=== PATIENT | female | born 1985 | race Caucasian/White ===

== ENCOUNTER 2020-11-23 21:28 | Emergency (ER) | payer BC, SELFPAY ==
[2020-11-23 21:28] VITALS: BP 148/89; PULSE 107; RESP 20; TEMP 36.4; O2SAT 98; BMI 57.0
--- NOTE | 2020-11-23 21:54 | ED.RN ---
RN CALLED FOR EKG, PULLED OLD EKGS FOR
--- NOTE | 2020-11-23 21:58 | CT_ITS ---
STUDY: CTA CHEST REASON FOR EXAM: Female, 35 years old. Chest pain. Shortness of breath. Tachycardia. RADIATION DOSAGE (If Supplied By Facility): CTDIvol = ( 12.67 ) mGy, DLP = ( 517.19 ) mGycm TECHNIQUE: The examination was performed with the intravenous administration of IV 100mL Isovue-370. Post-processing of the angiographic images was performed, with multiplanar reformation and 3D reconstruction. Individualized dose optimization techniques were used for this CT. COMPARISON: None. FINDINGS: Normal enhancement of the main pulmonary artery and right and left pulmonary arteries. Normal enhancement of the bilateral peripheral pulmonary arteries. There is no demonstrated pulmonary embolism. Normal thoracic aorta and visualized great vessels. There is no demonstrated aortic dissection. Normal heart and pericardium. Normal mediastinum. Normal hilar regions. Normal visualized trachea and bronchi. The lungs are well expanded. Normal pulmonary parenchyma. Normal pleura. Normal chest wall structures. Normal osseous structures. The liver is enlarged and fatty infiltrated. The upper abdomen is otherwise unremarkable. CT/CTA Chest W/WO Contrast IMPRESSION: 1. Normal CTA chest examination, without a demonstrated pulmonary embolism or arterial dissection. 2. Hepatomegaly with fatty infiltration. Electronically Signed: Esau Cunningham DO at 23:27 EDT Tel [phone], Service support ,
--- NOTE | 2020-11-23 21:59 | EKG12_ITS ---
Test Reason : CP Blood Pressure : / mmHG Vent. Rate : 105 BPM Atrial Rate : 105 BPM P-R Int : 160 ms QRS Dur : 088 ms QT Int : 324 ms P-R-T Axes : 046 064 024 degrees QTc Int : 428 ms Sinus tachycardia Otherwise normal ECG Confirmed by MAGO SINCLAIR, JENNIFER ([id number]), supervising editor news reel LIA BOOKER ([id number]) on 11/28/2020 1:37:14 PM Referred By: TL/ODILIA Confirmed By:JENNIFER MERCEDES MD
--- NOTE | 2020-11-23 22:01 | ED.VIS.CHEST ---
HPI History of Present Illness Chief Complaint: Chest Pain Informant: patient Onset/Context/Timing Onset: Today Activity at onset: gradual Timing: Continuous Quality: Positive for Tightness Location: Substernal Worsened By: Nothing Relieved By: Rest Associated Symptoms: Positive for Dyspnea, Lightheadedness and Palpitations; Negative for Nausea, Vomiting, Diaphoresis, Cough, Fever and Acid Reflux Narrative Narrative: Patient presents with chest pain that began today. Patient states that it has been constant all day today. Patient states it feels like a tightness over her upper sternal area. Patient denies any radiation of the pain. Patient states the pain is better with sitting and resting. Patient states nothing makes the pain worse. Patient does admit to some shortness of breath and lightheadedness. Patient states she feels weak and fatigued. Patient also admits to some palpitations. CVD Risk Factors: Positive for Diabetes; Negative for Hypertension, Hypercholesterolemia, Family History 1' </=55 and Smoking PE Risk Factors: Negative for Recent Travel/Surgery, Recent Immobilization, Prior DVT or PE, Cancer and OCP + Smoking + >/=35 PFSH PFSH Medical History (Updated 11/24/20 @ 00:[address] Elder Amos DO) Depression PCOS (polycystic ovarian syndrome) Pre-diabetes Home Medications buspirone 15 mg PO DAILY 11/23/20 [History Last Taken Unknown] cetirizine 10 mg PO DAILY 11/23/20 [History Last Taken Unknown] cholecalciferol (vitamin D3) [Vitamin D3] 125 mcg PO DAILY 11/23/20 [History Last Taken Unknown] escitalopram oxalate 20 mg PO DAILY 11/23/20 [History Last Taken Unknown] ibuprofen [IBU] 800 mg PO BID PRN 11/23/20 [History Last Taken Unknown] metformin 500 mg PO DAILY 11/23/20 [History Last Taken Unknown] nebivolol [Bystolic] 5 mg PO DAILY 11/23/20 [History Last Taken Unknown] Allergy/AdvReac Type Severity Reaction Status Date / Time No Known Allergies Allergy Verified 11/23/20 21:32 no surgical history Social History Smoking Status: Never smoker ROS ROS ED Constitutional Constitutional ED: Denies chills or fever(s) Eyes Eyes: Denies blurry vision or change in vision ENT ENT ED: Denies rhinorrhea or sore throat Cardiovascular Cardiovascular: Reports chest pain and palpitations Respiratory/Chest Respiratory/Chest: Reports dyspnea; Denies cough Gastrointestinal Gastrointestinal: Reports abdominal pain; Denies nausea or vomiting Genitourinary Genitourinary ED: Reports urinary frequency; Denies dysuria or hematuria Musculoskeletal Musculoskeletal: Denies back pain or neck pain Integumentary Denies abscess or rash Neurologic Neurologic: Reports headache(s) and weakness Allergic/Immunologic Allergic/Immunologic ED: Denies mouth swelling or urticaria EXAM Physical Exam Const Vital Signs: 11/23/20 21:28 11/23/20 22:02 11/23/20 22:05 Temperature 97.6 F L Temperature Source Temporal Pulse Rate 107 H Respiratory Rate 20 H Respiratory Effort Short of Breath Respiratory Pattern Normal Blood Pressure 148/89 H Blood Pressure Mean 108 Pulse Ox 98 94 Oxygen Delivery Method Room Air Room Air 11/23/20 22:51 Temperature Temperature Source Pulse Rate 98 Respiratory Rate 17 Respiratory Effort Respiratory Pattern Blood Pressure 155/97 H Blood Pressure Mean 116 Pulse Ox 99 Oxygen Delivery Method Room Air Positive well nourished, well developed and obese General Appearance ED: well developed Nutritional Appearance: obese HEENT normocephalic and atraumatic Eyes PERRL and EOMs intact bilaterally Neck supple and no JVD Chest Wall palpation of chest normal Resp normal respiratory effort and clear to auscultation bilaterally Effort and Inspection: Negative for respiratory distress Cardio regular rate, regular rhythm and no murmurs GI normal to inspection, nondistended, normoactive bowel sounds, soft to palpation, non-tender and non-distended Extremity normal to inspection General Extremety ED: Negative for edema or tenderness General Extremity: Negative for edema Neuro oriented x3, CN's II-XII intact bilaterally and no sensory deficits noted Sensorium / Orientation: awake and alert Motor Exam: strength 5/5 throughout Psych mental status grossly normal Heart Score History: Slightly/Non-Suspicious ECG: Normal Age: </= 45 years Risk Factors: 1 or 2 Risk Factors Score: 1 MDM MDM MDM Narrative Medical decision making narrative: EKG was obtained. On my interpretation, it showed a sinus tachycardia with a rate of 105. [place] interval, QRS interval, and QTc intervals were all normal. [place] was normal. There are no acute ST or T wave changes. CBC shows a slight leukocytosis of 11.1. Basic metabolic profile was normal. PT with INR and PTT were normal. High-sensitivity troponin was normal. CTA of the chest was obtained. There is no evidence of pulmonary embolism or arterial dissection. This was interpreted by the radiologist and reviewed by myself. Patient was given aspirin here. Patient was feeling somewhat better on reevaluation. Patient was advised of her findings. Patient has a HEART score of 1. Patient was advised that this is low risk for acute cardiac event. Patient was instructed to follow-up with her primary care physician in 5 to 7 days. Patient understood and was agreeable with the plan. All questions were answered. Lab Data Attestation: I reviewed the patient's lab results. Labs: Laboratory Results - last 24 hr 11/23/20 11/23/20 11/23/20 22:10 22:10 22:10 WBC 11.1 H RBC 4.46 Hgb 12.6 Hct 38.6 MCV 86.5 MCH 28.3 MCHC 32.6 RDW Std Deviation 44.1 H RDW Coeff of Steffi 13.9 Plt Count 384 MPV 8.4 Immature Gran % (Auto) 0.900 Neut % (Auto) 71.8 H Lymph % (Auto) 20.3 Pettis % (Auto) 5.0 Eos % (Auto) 1.1 Baso % (Auto) 0.9 Absolute Neuts (auto) 7.9 H Absolute Lymphs (auto) 2.25 Nucleated RBC % 0 PT 14.1 INR 1.2 APTT 36.6 H Sodium 138 Potassium 3.6 Chloride 102 Carbon Dioxide 28.0 Anion Gap 8 BUN 16 Creatinine 0.94 Estim Creat Clear Calc 66.70 Est GFR (MDRD) Af Amer 88 Est GFR (MDRD) Non-Af 72 BUN/Creatinine Ratio 17.0 Glucose 191 H Calcium 9.0 Troponin I High Sens < 3.0 L Radiography Diagnostic Testing: Radiology Impression Chest CTA 11/23/20 21:58 IMPRESSION: 1. Normal CTA chest examination, without a demonstrated pulmonary embolism or arterial dissection. 2. Hepatomegaly with fatty infiltration. Electronically Signed: Esau Cunningham DO at 23:27 EDT Tel [phone], Service support , EKG Initial EKG: Attestation: I personally reviewed and interpreted this EKG as follows: Interpretation: No Acute Injury Pattern and Sinus Tachycardia (105) Discharge Plan Triage Chief Complaint: Chest Pain ED Provider: Elder Amos Dx/Rx/DC Orders Clinical Impression: Chest pain of uncertain etiology, Generalized weakness Instructions: ED Chest Pain, Uncertain Cause, ED Weakness (Uncertain Cause) Prescriptions: No Action metformin 500 mg tablet 500 mg PO DAILY RF: 0 ibuprofen [IBU] 800 mg Tablet 800 mg PO BID PRN (Reason: Pain) RF: 0 buspirone 15 mg tablet 15 mg PO DAILY RF: 0 escitalopram oxalate 20 mg tablet 20 mg PO DAILY RF: 0 Bystolic 5 mg Tablet 5 mg PO DAILY RF: 0 cholecalciferol (vitamin D3) [Vitamin D3] 125 mcg (5,000 unit) Tablet 125 mcg PO DAILY RF: 0 cetirizine 10 mg Capsule 10 mg PO DAILY RF: 0 Primary Care Provider: Odalys Gonzales Referrals: Odalys Gonzales DO [Primary Care Provider] - 5-7 Days Disposition Disposition: Home, Self Care
[2020-11-23 22:02] VITALS: O2SAT 94
[2020-11-23] MEDS: Aspirin 81 MG TAB.CHEW 324 MG PO (22:12)
[2020-11-23 22:14] LABS: Absolute Lymphocyte Count 2.25 X10^3/uL (0.83-4.51); Absolute Neutrophil Count 7.9 X10^3/uL (2.0-7.7); Basophil% 0.9 % (0-1); Eosinophil# 0.12 X10^3/uL; Eosinophils% 1.1 % (0-5); Hematocrit 38.6 % (37-47); Hemoglobin 12.6 g/dL (12.0-15.0); Lymphocyte # 2.25 X10^3/ul (0.83-4.51); Lymphocyte % 20.3 % (19-41); Mean Corp Hgb Conc 32.6 g/dL (32-36); Mean Corpuscular Hgb 28.3 pg (27.0-32.0); Mean Corpuscular Volume 86.5 fL (81-99); Mean Platelet Vol. 8.4 fl (6.2-12.0); Monocyte# 0.55 X10^3/uL; NRBC Flagged by Analyzer 0 % (0-5); Neutrophil # 7.94 X10^3/uL (2.7-7.7); Neutrophil % 71.8 % (47-70); Platelet Count 384 K/mm3 (150-450); RBC Distribution Width CV 13.9 % (11.6-14.6); RBC Distribution Width SD 44.1 fl (35.1-43.9); Red Blood Count 4.46 M/mm3 (4.2-5.4); White Blood Count 11.1 K/mm3 (4.4-11.0)
[2020-11-23 22:24] LABS: International Normalized Ratio 1.2; Prothrombin Time (Protime)PT. 14.1 SECONDS (11.7-14.9)
[2020-11-23 22:25] LABS: Partial Thromboplast Time 36.6 Seconds (24.1-36.2)
[2020-11-23 22:35] LABS: Anion Gap 8 (5-15); BUN 16 mg/dL (7-18); Chloride 102 mmol/L (98-107); Creatinine, Serum 0.94 mg/dL (0.55-1.02); EST Glomerular Filtration Rate 72 mL/min (>60); Est Glom Filt Rate - Afr Amer 88 mL/min (>60); Glucose 191 mg/dL (74-106); Potassium 3.6 mmol/L (3.5-5.1); Sodium Level 138 mmol/L (136-145); Troponin-I HS < 3.0 pg/mL (3.0-53.7)
[2020-11-23 22:51] VITALS: BP 155/97; PULSE 98; RESP 17; O2SAT 99
[2020-11-24 00:11] VITALS: BP 164/93; PULSE 91; RESP 19; O2SAT 99
== END 2020-11-24 00:12 | disposition home or self-care (01) ==
PROVIDERS: Emergency Provider Emergency Medicine; PCP Internal Medicine
DX: R07.89 Other chest pain (principal); R06.00 Dyspnea, unspecified; R42 Dizziness and giddiness; R53.83 Other fatigue; R53.1 Weakness; R00.2 Palpitations; R73.03 Prediabetes; E28.2 Polycystic ovarian syndrome; F32.9 Major depressive disorder, single episode, unspecified; Z79.84 Long term (current) use of oral hypoglycemic drugs; Z79.899 Other long term (current) drug therapy
CPT/HCPCS: 71275; 80048; 84484; 85025; 85610; 85730; 93005; 99285; Q9967; A4216

== ENCOUNTER → 2021-04-26 14:26 | Outpatient (CLI) | payer BC, SELFPAY ==
[2021-04-26 15:50] LABS: Erythrocyte Sedimentation Rate 32 mm/hr (0-30)
[2021-04-26 16:16] LABS: LDH 145 U/L (84-246)
[2021-04-27 12:03] LABS: Hepatitis C Antibody Non-Reactive (Nonreactive)
[2021-04-29 12:08] LABS: Anti-Centromere B Ab <0.2 AI (0.0-0.9); Anti-Chromatin <0.2 AI (0.0-0.9); Anti-Jo <0.2 AI (0.0-0.9); Anti-Scleroderma-70 AB <0.2 AI (0.0-0.9); Anti-ribosomal P Antibodies <0.2 AI (0.0-0.9); RNP Ab <0.2 AI (0.0-0.9); SJOGREN'S Anti-SS-A test < 0.2 AI (0.0-0.9); SJOGREN'S Anti-SS-B test < 0.2 AI (0.0-0.9); Smith Ab <0.2 AI (0.0-0.9); Smith/RNP Ab <0.2 AI (0.0-0.9)
[2021-04-29 13:31] LABS: Anti-Mitochondrial AB <20.0 Units (0.0-20.0); Anti-dsDNA Ab <1 IU/mL (0-9)
[2021-05-03 16:09] LABS: Angiotensin Convert Enzyme 18 U/L (14-82); Ceruloplasmin 29.8 mg/dL (19.0-39.0); Cytoplasmic Ab (C-ANCA) <1:20 titer (Neg:<1:20); Dilute Prothrombin Time (dPT) 48.2 sec (0.0-47.6); Dilute Russell Viper Venom 53.6 sec (0.0-47.0); Endomysial Antibody IgA Negative (Negative); Immunoglobulin A 129 mg/dL (87-352); Immunoglobulin E 3 IU/mL (6-495); Immunoglobulin G 1358 mg/dL (586-1602); Immunoglobulin M 54 mg/dL (26-217); PTT-LA 45.5 sec (0.0-51.9); Protein S, Free 122 % (61-136); Thrombin Time 17.5 sec (0.0-23.0); dPT Confirm Ratio 0.94 Ratio (0.00-1.34)
[2021-05-03 16:10] LABS: Anti-Smooth Muscle ABS 8 Units (0-19); Antithrombin 3 Function 88 % (75-135); Copper, Serum or Plasma 146 ug/dL (80-158); EBV Acute VCA IgM < 36.0 U/mL (0.0-35.9); EBV Nuclear Antigen IgG > 600.0 U/mL (0.0-17.9); Interpretation Comment: (.); Perinuclear Ab (P-ANCA) <1:20 titer (Neg:<1:20); Protein S, Total 109 % (60-150); t-Transglutaminase IgA <2 U/mL (0-3)
== END ==
PROVIDERS: Referring Provider Internal Medicine Gastroenterology; Visit Provider Internal Medicine Gastroenterology
DX: K76.0 Fatty (change of) liver, not elsewhere classified (principal)
CPT/HCPCS: 36415; 81241; 82164; 82390; 82525; 82784; 82785; 83516; 83615; 85300; 85305; 85306; 85652; 86038; 86140; 86225; 86235; 86255; 86256; 86664; 86665; 86803

== ENCOUNTER → 2021-05-20 09:59 | Outpatient (CLI) | payer BC, SELFPAY ==
--- NOTE | 2021-05-20 10:04 | US_ITS ---
STUDY: ABDOMINAL ULTRASOUND - RIGHT UPPER QUADRANT REASON FOR VISIT: Female, 36 years old fatty liver -- ELASTOGRAPHY ALSO DONE TODAY TECHNIQUE: Ultrasound evaluation of the right upper quadrant was performed with real-time and static winslow-scale imaging. TECHNICAL QUALITY: Adequate. COMPARISON: None. FINDINGS: Liver: The liver is enlarged and measures 20.3 cm. There is increased echogenicity consistent with fatty infiltration. Focal fatty sparing is seen adjacent to the gallbladder fossa. Tithe bile ducts are within normal limits. There is hepatic color flow. The direction of portal flow is hepatopetal. There is no demonstrated mass lesion. Gallbladder: Normal distended gallbladder. The gallbladder wall measures 2.6 mm. There is a negative sonographic Collins''s sign. There is no pericholecystic fluid. There is a solitary echogenic gallstone within the gallbladder. This measures 4.4 cm x 2.5 cm x 2.2 cm. Common Bile Duct (C.B.D.): The common bile duct measures 3.1 mm. Pancreas: Normal size of the head, body and tail of the pancreas. There is increased echogenicity of the pancreas. There is no demonstrated pancreatic mass or cyst. Right Kidney: Normal size of the right kidney. The right kidney measures 12.3 cm x 7.1 cm x 4.4 cm. Normal renal cortex. The right cortex measures 1.9 cm. There is no demonstrated renal mass or cyst. There is no right hydronephrosis. IMPRESSION: Hepatomegaly. Fatty infiltration the liver with focal fatty sparing along the gallbladder fossa. Large solitary gallstone. Electronically Signed: Vincent Pickard MD at 8:53 EST , Service support , STUDY: ABDOMINAL ULTRASOUND - ELASTOGRAPHY REASON FOR VISIT: Female, 36 years old. Fatty infiltration of the liver. Hepatomegaly. TECHNIQUE: Liver stiffness measurements were obtained on a [employer] 85 ultrasound machine using a CA 1-7 probe following the SRU guidelines. 3 measurements were obtained using a 2-D-SWE method. The IQR/M was 24% suggesting a quality data set. TECHNICAL QUALITY: Adequate. COMPARISON: Comparison is made with prior sonogram of the right upper quadrant earlier today. FINDINGS: Liver: Hepatomegaly with fatty infiltration of the liver. Median liver stiffness measured 4 kPa. US/Liver IMPRESSION: Liver stiffness measures 4 kPa compatible with F0 Metavir score. Electronically Signed: Vincent Pickard MD at 8:55 EST , Service support ,
== END ==
PROVIDERS: PCP Internal Medicine; Referring Provider Internal Medicine Gastroenterology; Visit Provider Internal Medicine Gastroenterology
DX: K76.0 Fatty (change of) liver, not elsewhere classified (principal); R19.7 Diarrhea, unspecified
CPT/HCPCS: 76705; 76981

== ENCOUNTER 2021-05-23 07:44 | Day surgery (SDC) | payer BC, SELFPAY ==
[2021-05-23] VITALS (7 sets, daily range): BP systolic 113–121; BP diastolic 58–66; PULSE 74–89; RESP 16–20; TEMP 36.4–36.9; O2SAT 93–98; BMI 53.6
[2021-05-23 08:08] LABS: Internal QC Validated? YES +Cl - CLEAR BKGD; Pregnancy, Urine Negative Negative
[2021-05-23] MEDS: Lactated Ringers 1,000 ML 15 ML IV (08:24)
[2021-05-23 08:30] LABS: Bedside Glucose 121 mg/dL (70-110)
--- NOTE | 2021-05-23 08:37 | PCM.HP.BLA ---
History and Physical Date of Admission: 05/23/21 35 F who presents to the office today for evaluation of diarrhea. She also has been having some abdominal pain. 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 Her diarrhea and abdominal pain got significantly better after being on Metformin. Currently for which she is on Ozempic. Back to doing very well from the medicine. However her diarrhea has gotten to the point she is having nocturnal diarrhea. She has difficulty with diarrhea each day with 5-10 episodes a day. She has attempted bland diets. Vegetables, salads, processed foods, eating out all trigger. COVID diagnosis in September. Worried because health issues have worsened to include DMII and worsened HTN. PCP attempted metformin which worsened diarrhea. Ozempic taking now and feels this is delaying her gastric emptying and causing worsening diarrhea. Reporting 20lb weight loss since November 2021. Also reports gas and bloating. Sigmoidoscopy performed 10 years prior, she reports nothing abnormal. Chest CTA 11/23/20 performed during ED visit with findings of enlarged liver and fatty infiltration. ROS Const Constitutional: Positive for fatigue and headache(s) ENT ENT: Positive for nasal congestion, headache(s) and sore throat Gastro GI: Positive for abdominal pain, bloating, diarrhea and heartburn Musc Musculoskeletal: Positive for back pain Neuro Neurology: Positive for headache(s) Psych Psychiatric: Positive for anxiety Endo Endocrine: Positive for fatigue Exam Const General: cooperative and comfortable Nutritional Appearance: average body habitus and well nourished [facility] Head: normal to inspection Ears: hearing grossly normal bilaterally Nose: external nose normal Face and sinus: normal facial exam Mouth: oral mucosae normal Throat: posterior oropharynx normal Eyes General: appearance normal, both eyes and all related structures Neck Neck: normal visual inspection Chest Chest palpation & inspection: normal inspection of the chest and normal palpation of entire chest wall Resp Effort & Inspection: normal respiratory effort Auscultation: Bilateral: Clear to Auscultation Cardio Palpation: normal PMI Rate: regular rate Rhythm: regular rhythm GI Inspection: normal to inspection Auscultation: normal bowel sounds Percussion: normal to percussion Palpation: no hepatosplenomegaly Skin General: no rashes or lesions noted Neuro General: patient alert Extrem General: normal to inspection Psych Affect: normal affect Quality Reporting Tobacco Screening ([facility] 138) Smoking Status: Never smoker Assessment and Plan Assessment and Plan (1) Diarrhea: Status: Acute Orders: Orders: Colonoscopy Today EGD Today Liver Today Plan - Dr. Diaz Friend, DO: She will undergo colonoscopy. At this time we will also perform stool studies with biopsies. She will undergo biochemical testing. (2) Fatty (change of) liver, not elsewhere classified: Status: Acute Orders: Orders: Colonoscopy Today EGD Today CRP Today LDH Today Erythrocyte Sed Rate Today Anti-Mitochondrial AB Today Angiotensin Convert Enzyme Today ANCA Today Anti-Smooth Muscle ABS Today Antithrombin 3 Function Today Celiac Disease Profile Today Ceruloplasmin Today Copper, Serum or Plasma Today Fact V Leiden Mutation Today Immunoglobulin E Today Immunoglobulin G Today Immunoglobulin M Today Lupus Anticoagulant Comp Today Protein S Antigen Today Hepatitis C Antibody Today EBV Acute Prof IgG / IgM Today Miscellaneous Lab Procedure Today Liver Today Elastography Parenchyma/Organ Today Plan - Dr. Diaz Friend, DO: Her hepatomegaly is likely secondary to fatty liver disease. However because her PTT is prolonged. We will assess for hypercoagulable disorder and also look for other signs Plan Details Other Medications: New: bisacodyl 5 mg PO ONCE 4 tabs 0RF polyethylene glycol 3350 (Miralax) take as directed for bowel 17 grams PO DAILY 238 grams 0RF I have re-examined the patient. There are no clinical changes since date of exam.
--- NOTE | 2021-05-23 08:45 | EGD_PTH ---
PATIENT: KENROY ULLOA LOC: [facility] U#:[id number] AGE/SX: 36/F ROOM: RE05/23/[address]: Dr. Joe Arias DO : 1985 BED: DIS: 05/23/2021 SPEC #: [id number] RECD: 05/23/21 11:49 STATUS: OPAL REAden #: [id number] MARTHA: 05/23/21 08:[address]: Joe Arias DEPT: SURGICAL PATHOLOGY RECD BY: Keyanna Avalos ENTERED: 05/23/21 12:51 SP TYPE: EGD BIOPSY NATALIIA DR: Dr. Odalys Gonzales DO Tissues: A - Duodenum, NOS B - Esophagus, NOS C - COLON BIOPSY Procedures: Special Stain Group II Surgery Specimen Level IV Alcian Blue/PAS (control) HEADER OPERATION: Colonoscopy, EGD ([facility] [place]) PRE-OP DIAGNOSIS: Diarrhea, fatty liver TISSUE SUBMITTED: A ? Duodenum biopsy, B ? Distal esophagus biopsy, C ? Random colonic biopsy MICROSCOPIC DIAGNOSIS A. Duodenum, biopsy: Fragments of duodenal mucosa, no pathologic diagnosis. B. Distal esophagus, biopsy: Fragments of gastroesophageal mucosa with mild chronic inflammation. Intestinal metaplasia (goblet cell metaplasia) not identified. See comment. C. Colon, random biopsy: Fragments of colonic mucosa, no pathologic diagnosis. SJ:noam 05/27/2021 COMMENT B. Alcian blue/PAS stain with matched control is used in the evaluation of the specimen. MICROSCOPIC DESCRIPTION Slides are reviewed. GROSS DESCRIPTION A - Received in fixative is one container labeled with the patient's name and designated duodenum biopsy. The specimen consists of two irregular fragments of light davila soft tissue that in aggregate measure 0.4 x 0.2 x 0.1 cm. The specimen is totally submitted in one cassette. B - Received in fixative is one container labeled with the patient's name and designated distal esophagus biopsy. The specimen consists of two irregular fragments of light davila soft tissue that in aggregate measure 0.5 x 0.5 x 0.1 cm. The specimen is totally submitted in one cassette. C - Received in fixative is one container labeled with the patient's name and designated random colonic biopsy. The specimen consists of multiple irregular fragments of light davila soft tissue that in aggregate measure 2 x 0.7 x 0.1 cm. The specimen is totally submitted in one cassette. / SJ:rg 05/23/21 TC:3 CPT: 37277 x3, 95013
--- NOTE | 2021-05-23 09:10 | OP.EGD_ITS ---
Patient Name: Alma Rivera Procedure Date: 05/23/2021 8:47 AM Date of : 1985 Age: 36 Procedure: Upper GI endoscopy Indications: Dyspepsia Providers: Joe Arias DO Medicines: See the Anesthesia note for documentation of the administered medications Patient Profile: This is a 36 year old female. Refer to note in patient chart for documentation of history and physical. Patient has symptoms of chronic nausea. Complications: No immediate complications. Procedure: Pre-Anesthesia Assessment: - Prior to the procedure, a History and Physical was performed, and patient medications and allergies were reviewed. The risks and benefits of the procedure and the sedation options and risks were discussed with the patient. All questions were answered and informed consent was obtained. Patient identification and proposed procedure were verified by the physician in the pre-procedure area. Mental Status Examination: alert and oriented. Airway Examination: normal oropharyngeal airway and neck mobility. Respiratory Examination: clear to auscultation. CV Examination: normal. Prophylactic Antibiotics: The patient does not require prophylactic antibiotics. Prior Anticoagulants: The patient has taken no previous anticoagulant or antiplatelet agents. ASA Grade Assessment: II - A patient with mild systemic disease. After reviewing the risks and benefits, the patient was deemed in satisfactory condition to undergo the procedure. The anesthesia plan was to use moderate sedation / analgesia (conscious sedation). Immediately prior to administration of medications, the patient was re-assessed for adequacy to receive sedatives. The heart rate, respiratory rate, oxygen saturations, blood pressure, adequacy of pulmonary ventilation, and response to care were monitored throughout the procedure. The physical status of the patient was re-assessed after the procedure. After obtaining informed consent, the endoscope was passed under direct vision. Throughout the procedure, the patient's blood pressure, pulse, and oxygen saturations were monitored continuously. The Endoscope was introduced through the mouth, and advanced to the second part of duodenum. The upper GI endoscopy was accomplished without difficulty. The patient tolerated the procedure well. Moderate Sedation: Moderate (conscious) sedation was administered by the endoscopy nurse and supervised by the endoscopist. The patient's oxygen saturation, heart rate, blood pressure and response to care were monitored. Total physician intraservice time was 15 minutes. Scope In: 9:00:54 AM Scope Out: 9:05:33 AM Total Procedure Duration Time 0 hours 4 minutes 39 seconds Findings: LA Grade A (one or more mucosal breaks less than 5 mm, not extending between tops of 2 mucosal folds) esophagitis with no bleeding was found 34 to 35 cm from the incisors. Biopsies were taken with a cold forceps for histology. Verification of patient identification for the specimen was done. Estimated blood loss was minimal. A large amount of food (residue) was found in the entire examined stomach. Scattered moderate inflammation characterized by congestion (edema) was found in the duodenal bulb, in the first portion of the duodenum and in the second portion of the duodenum. Biopsies were taken with a cold forceps for histology. Verification of patient identification for the specimen was done. Estimated blood loss was minimal. Biopsies were taken with a cold forceps for histology. Verification of patient identification for the specimen was done. Impression: - LA Grade A reflux esophagitis. Biopsied. - A large amount of food (residue) in the stomach. Recommendation: - Written discharge instructions were provided to the patient. - The signs and symptoms of potential delayed complications were discussed with the patient. - Patient has a contact number available for emergencies. - Return to normal activities tomorrow. - Resume previous diet. - Continue present medications. - Await pathology results. - Repeat upper endoscopy in 1 year for surveillance. - Return to GI clinic in 2 weeks. Procedure Code(s): --- Professional --- 79103, 59, Esophagogastroduodenoscopy, flexible, transoral; with biopsy, single or multiple 99192, 59, Moderate sedation services provided by the same physician or other qualified health home health care provider performing the diagnostic or therapeutic service that the sedation supports, requiring the presence of an independent trained observer to assist in the monitoring of the patient's level of consciousness and physiological status; initial 15 minutes of intraservice time, patient age 5 years or older CPT copyright 2017 [employer]. All rights reserved. The codes documented in this report are preliminary and upon local hazmat driver review may be revised to meet current compliance requirements. Joe Arias DO 05/23/2021 9:10:22 AM This report has been signed electronically. Number of Addenda: 1 Note Initiated On: 05/23/2021 8:47 AM Addendum Number: 1 Addendum Date: 01/29/2022 7:30:17 AM MAC was used instead of moderate sedation for the patient. Joe Arias DO 01/29/2022 7:30:21 AM This report has been signed electronically.
--- NOTE | 2021-05-23 09:34 | OP.COLON_ITS ---
Patient Name: Alma Rivera Procedure Date: 05/23/2021 9:07 AM Date of : 1985 Age: 36 Procedure: Colonoscopy Indications: Chronic diarrhea Providers: Joe Arias DO Medicines: See the Anesthesia note for documentation of the administered medications Patient Profile: This is a 36 year old female. Refer to note in patient chart for documentation of history and physical. Patient has symptoms of chronic nausea. Last Colonoscopy: none. The patient's first colonoscopy is today. Complications: No immediate complications. Procedure: Pre-Anesthesia Assessment: - Prior to the procedure, a History and Physical was performed, and patient medications and allergies were reviewed. The risks and benefits of the procedure and the sedation options and risks were discussed with the patient. All questions were answered and informed consent was obtained. Patient identification and proposed procedure were verified by the physician in the pre-procedure area. Mental Status Examination: alert and oriented. Airway Examination: normal oropharyngeal airway and neck mobility. Respiratory Examination: clear to auscultation. CV Examination: normal. Prophylactic Antibiotics: The patient does not require prophylactic antibiotics. Prior Anticoagulants: The patient has taken no previous anticoagulant or antiplatelet agents. ASA Grade Assessment: II - A patient with mild systemic disease. After reviewing the risks and benefits, the patient was deemed in satisfactory condition to undergo the procedure. The anesthesia plan was to use moderate sedation / analgesia (conscious sedation). Immediately prior to administration of medications, the patient was re-assessed for adequacy to receive sedatives. The heart rate, respiratory rate, oxygen saturations, blood pressure, adequacy of pulmonary ventilation, and response to care were monitored throughout the procedure. The physical status of the patient was re-assessed after the procedure. After I obtained informed consent, the scope was passed under direct vision. Throughout the procedure, the patient's blood pressure, pulse, and oxygen saturations were monitored continuously. The pediatric colonoscope was introduced through the anus and advanced to the terminal ileum. The colonoscopy was performed without difficulty. The patient tolerated the procedure well. The quality of the bowel preparation was poor. Moderate Sedation: Moderate (conscious) sedation was administered by the endoscopy nurse and supervised by the endoscopist. The patient's oxygen saturation, heart rate, blood pressure and response to care were monitored. Total physician intraservice time was 15 minutes. Scope In: 9:12:27 AM Scope Withdrawal Time 0 hours 11 minutes 53 seconds Scope Out: 9:28:28 AM Total Procedure Duration Time 0 hours 16 minutes 1 second Findings: The perianal and digital rectal examinations were normal. A large amount of stool was found in the rectum, in the recto-sigmoid colon, in the sigmoid colon, in the descending colon, at the splenic flexure, in the ascending colon and in the cecum, precluding visualization. Lavage of the area was performed using a small amount of sterile water, resulting in incomplete clearance with continued poor visualization. An area of mildly congested mucosa was found in the ascending colon. Biopsies were taken with a cold forceps for histology. Verification of patient identification for the specimen was done. Estimated blood loss was minimal. Impression: - Preparation of the colon was poor. - Stool in the rectum, in the recto-sigmoid colon, in the sigmoid colon, in the descending colon, at the splenic flexure, in the ascending colon and in the cecum. - Congested mucosa in the ascending colon. Biopsied. Recommendation: - Discharge patient to home. - Resume previous diet. - Continue present medications. - Await pathology results. - Repeat colonoscopy in 6 months because the bowel preparation was suboptimal. - Return to GI office in 2 weeks. Procedure Code(s): --- Professional --- 31128, Colonoscopy, flexible; with biopsy, single or multiple 17138, 59, Moderate sedation services provided by the same physician or other qualified health care assistant performing the diagnostic or therapeutic service that the sedation supports, requiring the presence of an independent trained observer to assist in the monitoring of the patient's level of consciousness and physiological status; initial 15 minutes of intraservice time, patient age 5 years or older CPT copyright 2017 [employer]. All rights reserved. The codes documented in this report are preliminary and upon beach expert review may be revised to meet current compliance requirements. Joe Arias DO 05/23/2021 9:33:49 AM This report has been signed electronically. Number of Addenda: 1 Note Initiated On: 05/23/2021 9:07 AM Addendum Number: 1 Addendum Date: 01/29/2022 7:30:32 AM MAC was used instead of moderate sedation for the patient. Joe Arias DO 01/29/2022 7:30:36 AM This report has been signed electronically.
== END 2021-05-23 10:30 | disposition home or self-care (01) ==
LOC: EN 07:46 → AC 07:49
PROVIDERS: Anesthesiology; PCP Internal Medicine; Referring Provider Internal Medicine; Visit Provider Internal Medicine Gastroenterology
PROC: 0DJD8ZZ Inspection of Lower Intestinal Tract, Via Natural or Artificial Opening Endoscopic (ICD-10-PCS; CPT 45378; principal; 2021-05-23 08:40)
DX: K21.00 Gastro-esophageal reflux disease with esophagitis, without bleeding (principal); K52.9 Noninfective gastroenteritis and colitis, unspecified; K76.0 Fatty (change of) liver, not elsewhere classified; I10 Essential (primary) hypertension; F41.9 Anxiety disorder, unspecified; F32.A Depression, unspecified; K21.9 Gastro-esophageal reflux disease without esophagitis; E28.2 Polycystic ovarian syndrome; G47.30 Sleep apnea, unspecified; G43.909 Migraine, unspecified, not intractable, without status migrainosus; Z79.899 Other long term (current) drug therapy
CPT/HCPCS: 43239; 45380; 81025; 82962; 88305; 88313; J7120; J2405

== ENCOUNTER 2021-07-01 05:55 | Day surgery (SDC) | payer BC, SELFPAY ==
[2021-07-01] VITALS (8 sets, daily range): BP systolic 108–127; BP diastolic 42–84; PULSE 81–100; RESP 16; TEMP 36.6–37.3; O2SAT 92–100; BMI 52.8
[2021-07-01] MEDS: Lactated Ringers 1,000 ML 15 ML IV ×2 (06:37→09:58)
[2021-07-01 06:41] LABS: Hematocrit 40.5 % (37-47); Hemoglobin 13.1 g/dL (12.0-15.0); Mean Corp Hgb Conc 32.3 g/dL (32-36); Mean Corpuscular Volume 86.5 fL (81-99); Mean Platelet Vol. 8.5 fl (6.2-12.0); Platelet Count 438 K/mm3 (150-450); RBC Distribution Width CV 13.9 % (11.6-14.6); RBC Distribution Width SD 43.6 fl (35.1-43.9); Red Blood Count 4.68 M/mm3 (4.2-5.4)
[2021-07-01 06:44] LABS: Internal QC Validated? YES +Cl - CLEAR BKGD; Pregnancy, Urine Negative Negative
[2021-07-01 06:45] LABS: Bedside Glucose 91 mg/dL (70-110)
[2021-07-01 06:46] LABS: Anion Gap 5 (5-15); BUN 20 mg/dL (7-18); BUN/Creat Ratio 24.8 RATIO (10-20); Calcium,Total 9.1 mg/dL (8.5-10.1); Chloride 109 mmol/L (98-107); Creatinine, Serum 0.81 mg/dL (0.55-1.02); EST Glomerular Filtration Rate 86 mL/min (>60); Est Glom Filt Rate - Afr Amer 104 mL/min (>60); Estimated Creatinine Clearance 76.67 ml/min; Glucose 97 mg/dL (74-106); Potassium 3.9 mmol/L (3.5-5.1); Sodium Level 138 mmol/L (136-145)
--- NOTE | 2021-07-01 06:57 | HP.PCM_ITS ---
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 Is patient in pain?: No Allergies No Known Allergies Allergy (Verified 06/27/21 09:40) Medications cholecalciferol (vitamin D3) [Vitamin D3] 125 mcg PO DAILY 11/23/20 [History Confirmed 06/27/21] escitalopram oxalate 20 mg PO DAILY 11/23/20 [History Confirmed 06/27/21] ibuprofen [IBU] 800 mg PO BID PRN 11/23/20 [History Confirmed 06/27/21] nebivolol [Bystolic] 5 mg PO DAILY 11/23/20 [History Confirmed 06/27/21] dicyclomine 20 mg tablet 20 mg PO TID PRN #90 tab 06/07/21 [Rx Confirmed 06/27/21] budesonide 3 mg capsule,delayed,extended release 6 mg PO DAILY ea 06/27/21 [History Confirmed 06/27/21] esomeprazole magnesium 20 mg capsule,delayed release 20 mg PO DAILY PRN 06/27/21 [History Confirmed 06/27/21] famotidine 20 mg tablet 20 mg PO DAILY PRN 06/27/21 [History Confirmed 06/27/21] metformin 500 mg tablet 500 mg PO DAILY tab 06/27/21 [History Confirmed 06/27/21] semaglutide 1 mg/dose (2 mg/1.5 mL) subcutaneous pen injector 1 mg SUBCUT QWEEK ml 06/27/21 [History Confirmed 06/27/21] PFS Medical History (Updated 06/27/21 @ 10:[address] Toro Epstein MD) Abnormal coagulation profile Anxiety Chest pain of uncertain etiology Cholelithiasis CPAP (continuous positive airway pressure) dependence Depression Diabetes Diarrhea Epigastric pain Fatty (change of) liver, not elsewhere classified Fatty liver Gastric reflux Gastroparesis Generalized weakness Hypertension Migraine headache Non-smoker PCOS (polycystic ovarian syndrome) Pre-diabetes Sleep apnea Wears glasses Surgical History (Updated 06/27/21 @ 09:34 by Lexie Lerma) No history of previous surgery Family History Father Hypertension CVA (cerebral vascular accident) High blood cholesterol Mother Hypertension Thyroid disorder Asthma Social History (Updated 06/27/21 @ 09:36 by Lexie S Lerma) Smoking Status: Never smoker alcohol intake: never substance use type: does not use HPI HPI HPI: KENROY ULLOA, is a 36 F who presents to the office today for surgical cons ultation regarding removal of her gallbladder and liver biopsy. The patient is referred by Dr. Joe Arias and Isidra Wallace CNP and a written copy of my surgical consult recommendations will return to them. The patient has had a gastroenterology work-up for chronic diarrhea cramping and urgency. She had an upper and lower endoscopy. The lower endoscopy was hampered secondary to a poor bowel prep. Random biopsies were negative. Apparently there is still is concerned about the possibility of lymphocytic colitis as the patient has an elevated CRP and ESR. Her ESR was 32 and CRP 12.8. The patient is being tried on budesonide and dicyclomine. Her upper endoscopy was compromised by a large amount of food residual within the stomach. Duodenal biopsies were unremarkable. Distal esophageal biopsies showed mild chronic inflammation. Investigations previously on November 23, 2020 with an emergency room visit because of the patient's complaint of chest pain shortness of breath and tachycardia a CTA of the chest demonstrated hepatomegaly with fatty infiltration. A more recent right upper quadrant ultrasound performed May 20, 2021 demonstrates an enlarged liver measuring 20.3 cm with fatty infiltration. Gallbladder wall is 2.6 mm. Solitary gallstone measuring 4.4 x 2.5 x 2.2 cm. Common bile duct 3.1 mm. Elastography was also performed. Median liver stiffness measured 4kPa. The patient is being specifically referred for cholecystectomy and liver biopsy. Medical and surgical care are compromised by body habitus of 134 kg and a BMI of 54 She has also been seen in consultation by Dr. Bob Johnson hematology because of abnormal coagulation profile. Her PT deluded is 48.2 with high normal being 47.6. PTT is 36.6 with high normal being 36.2 The patient claims that about every other month or so she will have these attacks of retrosternal discomfort. She states she had one last night. She took Nexium and within about 30 minutes it resolved. She is not sure whether this is related to her esophagus or possibly gallstone but she presses to the mid retrosternal area and not the abdomen. 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 ROS General General: Yes fatigue; No weight change, appetite, colon cancer, breast cancer or weakness HEENT HEENT: No difficulty swallowing, eye injury, eye surgery, swollen glands or hoarseness Endo Endocrine: Yes diabetes mellitus; No thyroid disease, thyroid cancer, Hair loss, heat intolerance or cold intolerance Skin Skin: No rash or changing moles Breast Breast: No left breast lump, right breast lump, nipple discharge, breast pain, abnormal mammogram, abnormal US or breast enlargement Musc Musculoskeletal: Yes back problems; No arthritis, rheumatoid arthritis, gout or joint pain Cardio Cardiovascular: Yes high blood pressure; No murmur, pacemaker, heart disease, atrial fibrillation, heart attack, heart stent, palpitations, shortness of breat with exertion or chest pain Psych Psychiatric: Yes anxiety; No depression or hearing voices Resp Respiratory: No shortness of breath, Yes sleep apnea, No cough, No COPD, No asthma, No emphysema and No wheezing Gastro Gastrointestinal: Yes abdominal pain, Yes nausea or vomiting, Yes diarrhea, No constipation, No blood in stool, Yes acid reflux, No hemorrhoids, No ulcers, Yes gallbladder problem and No black,tarry stools Renan Hematologic: No blood thinners, No blood disorders, No bleeding, No anemia and No blood clots Neuro Neurologic: No system reviewed and no additional complaints, except as documented, No as per HPI, No abnormal gait, No abnormal hearing, No abnormal movements, No abnormal speech, No behavioral changes, No burning sensations, No confusion, No convulsions, No disequilibrium, No dizziness, No localized weakness, No frequent falls, No headache(s), No lack of coordination, No loss of vision, No memory loss, No numbness, No other visual disturbances, No radicular pain, No restless legs, No sensory deficit, No syncope, No tingling, No tremor(s), No weakness and No other Exam Const General: cooperative, comfortable and no acute distress Nutritional Appearance: obese morbidly obese Orientation: alert and awake [facility] Head: normal to inspection Eyes General: appearance normal, both eyes and all related structures Neck Neck: normal visual inspection Chest Chest palpation & inspection: normal inspection of the chest Resp Effort & Inspection: normal respiratory effort Auscultation: clear to auscultation bilaterally Cardio Rate: regular rate Rhythm: regular rhythm GI Inspection: obesity Palpation: soft and no hepatosplenomegaly Musc Cervical Spine: normal cervical lordosis Skin General: no rashes or lesions noted Neuro General: patient alert, patient awake and patient oriented x3 Extrem General: no calf tenderness Psych Appearance: grossly normal Assessment and Plan Assessment and Plan (1) Fatty liver: Status: Acute (2) Cholelithiasis: Status: Acute Qualifiers: Cholelithiasis location: gallbladder Cholecystitis presence: with cholecystitis Cholecystitis acuity: chronic Biliary obstruction: without biliary obstruction Qualified Code(s): K80.10 - Calculus of gallbladder with chronic cholecystitis without obstruction (3) Cholelithiasis with chronic cholecystitis: Status: Chronic Qualifiers: Cholelithiasis location: gallbladder Biliary obstruction: without biliary obstruction Qualified Code(s): K80.10 - Calculus of gallbladder with chronic cholecystitis without obstruction Plan - Dr. Toro Epstein MD: 36-year-old female. 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 There are multiple ongoing medical issues and symptoms being evaluated. Whether her intermittent infrequent episodes of retrosternal pain is related to the gallbladder is less likely and the patient is aware of this. I have discussed with the patient a laparoscopic cholecystectomy with selective cholangiograms and Ger-Cut needle core liver biopsy. She is aware of the technique, benefit, risk of alternatives. She is aware that her body habitus does place her at increased difficulty and risk. She is aware that additional port sites may be required. The large gallstone may inhibit our ability to elevate the right lobe of the liver as does the size and weight of the liver. She is aware of the potential need to convert to only a partial cholecystectomy. She is aware of potential injury to the common bile duct. She is aware of possible conversion to an open technique but this would not be a desirable conversion again secondary to her habitus. In order to assist her ongoing gastroenterology management I feel that it is pertinent and indicated to proceed with a laparoscopic cholecystectomy. As requested liver biopsy will be performed. She has had an opportunity to ask and have questions answered. She is asking that we expedite her care. Appreciate the opportunity of assisting with the surgical management Copy: Dr. Joe Arias and Isidra Wallace CNP and Dr. Odalys Gonzales and Dr. Bob Epstein M.D., F.A.C.S. I have re-examined the patient. There are no clinical changes since date of exam.
--- NOTE | 2021-07-01 07:12 | EX.PCM.DISCH ---
Discharge Instructions Procedure General Surgery Diet Discharge Diet: Light diet - advance as tolerated (if you have questions about your diet instructions, please talk to you doctor.) Activity Discharge Activity: May Not Drive (for 3-5 days or while taking narcotic pain medicine.) May shower in (days): 1 Lifting Restrictions: 10 pounds Dressing / Incision Call your doctor if your incision/area has: Continuous Slow Oozing, Sudden Increased Bleeding, Increased Pain/ Swelling, Increased Redness and Foul Smelling Discharge Call your doctor if you observe: Fever of 101 or Higher Suture Line Care: Avoid Pulling/Pushing and Avoid Pinching/Bending Additional Dressing/Incision Instructions:: Change or remove dressing in 4 days. Leave steri-strips in place for 1 week. Follow Up Care Please Follow Up With: Toro Epstein MD When: Call [phone] to make an appointment to be seen in about 10 days. Test Results: Test results from this visit will be discussed in further detail at your follow-up appointment, if applicable. Discharge Plan Admission Attending Provider: Toro Epstein Primary Care Provider: Odalys Gonzales Discharge Orders/Prescriptions Prescriptions: No Action dicyclomine 20 mg tablet 20 mg PO TID PRN (Reason: diarrhea and cramps) Qty: 90 RF: 1 metformin 500 mg tablet 500 mg PO DAILY RF: 0 budesonide [Entocort EC] 3 mg capsule,delayed,extend.release 6 mg PO DAILY RF: 0 esomeprazole magnesium [Nexium] 20 mg capsule,delayed release(DR/EC) 20 mg PO DAILY PRN (Reason: acid reflux) RF: 0 famotidine 20 mg tablet 20 mg PO DAILY PRN (Reason: Acid Reflux) RF: 0 ibuprofen [IBU] 800 mg Tablet 800 mg PO BID PRN (Reason: Pain) RF: 0 escitalopram oxalate 20 mg tablet 20 mg PO DAILY RF: 0 nebivolol [Bystolic] 5 mg Tablet 5 mg PO DAILY RF: 0 cholecalciferol (vitamin D3) [Vitamin D3] 125 mcg (5,000 unit) Tablet 125 mcg PO DAILY RF: 0 Ozempic 1 mg/dose (2 mg/1.5 mL) pen injector 1 mg SUBCUT BERMAN RF: 0 losartan 50 mg Tablet 50 mg PO DAILY RF: 0
[2021-07-01] MEDS: Cefazolin 2 GM in 0.9% Normal Saline 100 ML IV (07:27)
--- NOTE | 2021-07-01 07:30 | GALL_PTH ---
PATIENT: KENROY ULLOA [place] [facility] [id number] AGE/SX: 36/F ROOM: RE07/01/[address]: Dr. Toro Esptein MD : 1985 BED: DIS: 07/01/2021 SPEC #: [id number] RECD: 07/01/21 11:02 STATUS: OPAL MCNEALAden #: [id number] MARTHA: 07/01/21 07:[address]: Toro Epstein DEPT: SURGICAL PATHOLOGY RECD BY: Keyanna Avalos ENTERED: 07/01/21 11:29 SP TYPE: GEORGETTE WILLIAM DR: Dr. Odalys Gonzales DO Tissues: A - Gallbladder, NOS B - Liver, NOS Procedures: PAS with Diastase (control) Trichrome (control) Special Stain Group II PAS Stain (control) Surgery Specimen Level III Surgery Specimen Level V Retic (control) Iron Stain (control) HEADER OPERATION: Laparoscopic cholecystectomy with IOC, liver biopsy PRE-OP DIAGNOSIS: Fatty liver, cholelithiasis with chronic cholecystitis TISSUE SUBMITTED: A ? Gallbladder, B ? Liver biopsy MICROSCOPIC DIAGNOSIS A. Gallbladder, cholecystectomy: Cholesterolosis, chronic cholecystitis and cholelithiasis. Benign pericystic lymph node. B. Liver, needle core biopsy: Chronic hepatitis, grade 1, stage 1 (modified Knodell scoring system for chronic hepatitis). Macrovesicular steatosis. See comment. AM:noam 07/02/2021 COMMENT B. Sections show fatty deposition within the liver parenchyma. Inflammation is primarily confined to focal areas with focal lobular involvement. Trichrome stain shows uptake in the portal areas with minimal ?chicken-wire? type uptake within the parenchyma. No obvious cirrhosis is seen. PAS with and without diastase does not reveal accumulation of abnormal proteins. Iron stain does not show intraparenchymal deposition of iron. Reticulin stain reveals a preserved parenchymal architecture. All matched controls are appropriate. MICROSCOPIC DESCRIPTION Slides are reviewed. GROSS DESCRIPTION A - Received is one container labeled with the patient's name and designated gallbladder. The specimen consists of a gallbladder measuring 10 cm in length and 3.5 cm in diameter. The external surface is pink-davila, smooth and glistening for the most part. Focally it is granular, hemorrhagic and contains cautery artifact. The gallbladder contains green-yellow mucoid bile and one ovoid, yellowish-brown stone measuring 4.5 x 2.5 x 2.5 cm. The mucosa is bile-stained and without any mass lesions. The gallbladder wall measures up to 0.2 cm in thickness. The mucosa also shows several yellowish streaks consistent with cholesterolosis. Also present close to cystic duct is an ovoid nodule, a possible lymph node, measuring 0.5 cm in greatest dimension. Life Science Technical Officer sections from the gallbladder and the cystic duct including entire nodule, a possible lymph node, are submitted in one cassette. B - Received in fixative is one container labeled with the patient's name and designated liver biopsy. The specimen consists of an elongated fragment of davila soft tissue measuring 1.5 cm in length and 0.1 cm in diameter. The specimen is totally submitted in one cassette. / RICHIE:noam 07/01/2021 TC:3 CPT: 55621, 97923, 39685 x5
--- NOTE | 2021-07-01 07:30 | RAD_ITS ---
STUDY: INTRAOPERATIVE CHOLANGIOGRAM. REASON FOR EXAM: Female, 36 years old. PAIN FLUOROSCOPY TIME (if supplied): ( 33.8 seconds ) minutes/seconds. A cine loop of 145 images was submitted. TECHNIQUE: An intraoperative cholangiogram was performed by the surgeon. Imaging was submitted. COMPARISON: None. FINDINGS: The common bile duct is mildly dilated. There is narrowing of the distal portion of the common bile duct. Only a small amount of contrast is seen entering the duodenum. RAD/Cholangiogram/ O R,Initial IMPRESSION: Narrowing of the distal portion of the common bile duct. Minimal contrast is seen entering the duodenum. Electronically Signed: Vincent Pickard MD at 8:57 EST ,
[2021-07-01 08:14] LABS: Hemoglobin A1c 5.8 % (3.8-5.6)
[2021-07-01] MEDS: Bupivacaine Mpf 0.5% 30 ML VIAL (09:03)
--- NOTE | 2021-07-01 09:03 | PCM.OPRPT ---
Problems Associated Problem List Diagnoses (1) Cholelithiasis with chronic cholecystitis: (2) Fatty (change of) liver, not elsewhere classified: Report of Operation Date of Procedure: 07/01/21 Pre-Operative Diagnosis: Chronic cholecystitis cholelithiasis steatosis Surgery/Procedure Performed:: Laparoscopic cholecystectomy with cholangiograms, needle core right lobe liver biopsy Description of Surgical Findings:: Timeout informed consent was obtained. 36-year-old female was taken to the operating place upon the table underwent general endotracheal intubation anesthesia. The abdomen sterilely prepped and draped. 3 g of Ancef were given conventionally weight-based. The abdomen sterilely prepped and draped. 0.5% Marcaine was used as a local anesthetic. Throughout the procedure total 30 cc was used. Skin sites were. And excised. A supraumbilical vertical incision was created sharp dissection carried down through the subcutaneous tissue. The patient is noted to be morbidly obese and this dissection was requiring [place] retractors and deeper exposure. Holding sutures of 0 Vicryl placed small incision made in the fascia and then a varies needle inserted the abdomen was insufflated with CO2 to a pressure of 12 mmHg pressure. 10 mm trocar inserted. 10 mm laparoscope inserted. Under direct visualization the abdomen was inspected no evidence of any trocar injuries. The liver itself although enlarged did not have a tanvir yellow appearance. 5 mm trochars were placed in the epigastric mid abdomen right upper quadrant. The gallbladder was grasped and distracted. Tedious and careful blunt dissection was instituted at the infundibulum until clearly the critical view was achieved. Cystic artery was anteriorly at the cystic duct more posteriorly. The artery was secured twice proximally once distally with Hem-o-jacek clips prior to transecting it. Hem-o-jacek clip was placed on the cystic duct incision in the cystic duct cholangiogram catheter was inserted through a 14-gauge Angiocath and fluoroscopically controlled cholangiograms were obtained demonstrating what appeared to be normal ductal anatomy and though with some spasm distally there was flow into the small bowel. Small amount of retrograde flow within the pancreatic duct. The cholangiogram catheter was removed and a additional hemolock clip was placed on the cystic duct stump. The cystic duct was transected. Posterior attachments of the liver with further secured with hemolock clips. The gallbladder was then dissected free from the liver bed using electrocautery. A very large dominant stone was noted in the gallbladder. No bile spillage. Gallbladder is released and placed in a retrieval bag. Then through the Angiocath site a needle core device was placed in 2 core biopsies were attempted of the right lobe of the liver. First biopsy did not return significant material so the second biopsy was performed. [place] that I had an adequate core with that. Getting access in order to cauterize this remains somewhat challenging cauterized and then made sure I had hemostasis. Subhepatic space was inspected it was hemostatic. The right upper quadrant was irrigated and aspirated free of excess fluid. At this point I elected not to pursue additional course for risk of occult bleeding. The cores were placed on Telfa immediately placed in formalin. The abdomen was allowed to deflate through an antiviral valve. The fascia at the supraumbilical site had to be slightly lengthened vertically in order for removal of the very dominant stone. Trochars were removed. The midline fascia was closed with a running 0 PDS. Skin edges approximated running or interrupted subdermal 4-0 Monocryl. Steri-Strips Telfa OpSite dressings applied. Sponge and instrument and needle counts were reported to the surgeon to be correct. Specimen gallbladder and right lobe liver core biopsies. Drains none. Blood loss minimal. The patient was taken to the recovery area in satisfactory addition without apparent complication Toro Epstein M.D., F.A.C.S. Surgeon: Toro Epstein Type of Anesthesia: General and Local Anesthesiologist: Clayton Coffman
[2021-07-01] MEDS: HYDROcodone Bitartrate/Apap 5/325 Tablet PO (10:14)
[2021-07-01] MEDS: Ketorolac 30 MG/ML Syringe IV (10:30)
[2021-07-01 10:50] LABS: Bedside Glucose 170 mg/dL (70-110)
== END 2021-07-01 23:59 | disposition home or self-care (01) ==
LOC: SDC 05:56 → AC 05:57
PROVIDERS: Anesthesiology; PCP Internal Medicine; Referring Provider Surgery; Visit Provider Surgery
PROC: (CPT 47610; principal; 2021-07-01 07:10)
DX: K80.10 Calculus of gallbladder with chronic cholecystitis without obstruction (principal); E11.43 Type 2 diabetes mellitus with diabetic autonomic (poly)neuropathy; E66.01 Morbid (severe) obesity due to excess calories; Z68.43 Body mass index [BMI] 50.0-59.9, adult; K76.0 Fatty (change of) liver, not elsewhere classified; I10 Essential (primary) hypertension; Z79.84 Long term (current) use of oral hypoglycemic drugs; F32.A Depression, unspecified; F41.9 Anxiety disorder, unspecified; E28.2 Polycystic ovarian syndrome; K31.84 Gastroparesis; Z79.899 Other long term (current) drug therapy; G47.30 Sleep apnea, unspecified; Z86.16 Personal history of COVID-19
CPT/HCPCS: 47563; 47001; 00790; 74300; 76000; 80048; 81025; 82962; 83036; 85027; 88304; 88307; 88313; J7120; J2405

== ENCOUNTER → 2021-10-08 | Outpatient (CLI) | payer BC, SELFPAY ==
[2021-10-09 08:37] LABS: HIV - WCH Non-Reactive (Nonreactive); Hepatitis B Surface Antigen Non-Reactive (Nonreactive); Hepatitis C Antibody Non-Reactive (Nonreactive); Syphilis Antibodies Non-reactive
[2021-10-10 16:35] LABS: HSV 2 IgG < 0.91 index (0.00-0.90)
== END | disposition home or self-care (01) ==
LOC: LAB 16:36
PROVIDERS: PCP Internal Medicine; Referring Provider Obstetrics & Gynecology; Visit Provider Obstetrics & Gynecology
DX: Z72.51 High risk heterosexual behavior (principal)
CPT/HCPCS: 36415; 86695; 86696; 86703; 86780; 86803; 87340

== ENCOUNTER → 2021-10-22 | Outpatient (CLI) | payer BC, SELFPAY ==
--- NOTE | 2021-10-22 13:34 | BI_ITS ---
MAMMOGRAPHY - BILATERAL SCREENING REASON FOR EXAM: Female, 36 years old. Routine annual screening examination. PERTINENT HISTORY: Grandmother with breast cancer. Aunt with breast cancer. TECHNIQUE: Digital bilateral breast alicia (3D mammographic acquisition) in the CC and MLO projections. 2-D mediolateral oblique (MLO) and craniocaudad (CC) views of both breasts were obtained. CAD: Full Field Digital Mammography with Computer Added Detection was performed. COMPARISON: None. Baseline examination. FINDINGS: Breast Composition: There are scattered areas of fibroglandular density. There are no dominant masses or suspicious calcifications. Small benign appearing bilateral axillary lymph nodes. No other significant abnormalities are identified. BI/SCRN MAMM (CAD)W/ALICIA BILAT IMPRESSION: Negative screening mammogram. Yearly followup mammogram recommended. (A) ASSESSMENT CATEGORY: BIRADS Category 2: Benign. A letter regarding these results will be sent to the patient by the facility within 30 days. Approximately 10% of breast cancers are not detected by mammography. A normal mammogram should not delay biopsy of a clinically suspicious abnormality. [id number] Electronically Signed: Vincent Pickard MD at 14:48 EDT ,
== END | disposition home or self-care (01) ==
LOC: OPBI 13:33
PROVIDERS: PCP Internal Medicine; Visit Provider Obstetrics & Gynecology
DX: Z12.31 Encounter for screening mammogram for malignant neoplasm of breast (principal)
CPT/HCPCS: 77063; 77067

== ENCOUNTER → 2024-12-30 | Outpatient (CLI) | payer OTHER, SELFPAY ==
--- OUTSIDE RECORDS SUMMARY | 2024-12-30 17:16 | XMS RPT_ITS | CCD ---
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 Hand Name Role Phone Odalys Raymond Unavailable Neema Jackson Unavailable Unavailable Unavailable Unavailable Unavailable Unavailable Odalys Raymond Unavailable Neema Jackson Unavailable Unavailable Long Soledad L Unavailable Unavailable Unavailable Unavailable Long Soledad L Unavailable Unavailable Unavailable Unavailable Unavailable Unavailable Gravius, Jackelin Unavailable Unavailable Odalys Raymond DO Unavailable Gravius MANAGER SPORTS, Jackelin Unavailable Unavailable Unavailable Unavailable Cross ASSISTANT FILM EDITOR, Mariah Unavailable Unavailable Slarb ASSISTANT FILM EDITOR, Muna Unavailable Unavailable Unavailable Unavailable Odalys Raymond DO Unavailable Sajan ASSISTANT FILM EDITOR, Zamzam Unavailable Unavailable Dr. Odalys Raymond Primary Care Provider Dr. Toro Epstein Attending Provider ARLEEN Wallace NP Referring Provider Dr. Toro Epstein Referring Provider Dr. Toro Epstein Other Provider Dr. Odalys Raymond Referring Provider [phone] ARLEEN Wallace NP Attending Provider Dr. Bob Johnson Attending Provider Dr. Odalys Raymond Primary Care Provider Dr. Toro Epstein Attending Provider SHERRIE WHITTEN Attending Unavail able Mandi DOOdalys Attending Unavailable Mandi DO, Odalys Consulting Unavailable Meli ASSISTANT FILM EDITOR, Adalid Unavailable Unavailable Sasakwa MANAGER SPORTS, Arslana Unavailable Unavailable Mandi Odalys GIL Primary Care Provider SYSTEM, PROVIDER NOT IN Referring Unavaila ble SYSTEM, PROVIDER NOT IN Attending Unavaila ble MANDI, ODALYS K Primary Care Unavailable ANNIE LOAIZA Attending Unavail able MANDI, ODALYS Tidwell Primary Care Unavailable MANDI, ODALYS K Primary Care Unavailable MENDEZ FRANCISCO Attending Unavailable MANDI, ODALYS K Primary Care Unavailable CLAUDY CORTEZ Attending Luzvai baylee GALVEZ, LETTY Attending Unavailable ANNIE LOAIZA Consulting Unavail able MANDI, ODALYS K Primary Care Unavailable MANDI, ODALYS K Primary Care Unavailable LETTY GALVEZ Attending Unavailable CLAUDY CORTEZ Referring Unavai lable MANDI, ODALYS Tidwell Attending Unavailable MANDI, ODALYS K Primary Care Unavailable MANDI, ODALYS K Primary Care Unavailable WES ARAMBULA Attending Unava ilable Mandi GIL, Dr. Morrow Primary Care Provider Dr. Odalys Raymond DO Referring Provider Michel Salazar Attending Provider [phone] Medications Current Medications Medication Drug Class(es) Dates Sig (Normalized) Sig (Original) budesonide 3 mg delayed release oral capsule (12 sources) Corticosteroid Start: 08-14-2021 End: 02-10-2022 take 3 capsules by mouth once daily Budesonide 3 mg capsule,delayed,ex tend.release Active 0 .ROUTE .COMPLEX 270 0 February 10, 2022 8:30am TAKE 3 CAPSULES BY MOUTH DAILY Start: 08-14-2021 End: 10-25-2021 take 9 mg by mouth once daily Budesonide Active 9 MG P O DAILY 270 October 25, 2021 5:11pm Start: 06-27-2021 End: 08-14-2021 Budesonide (Entocort Ec) 3 m g capsule,delayed,extend.release Discontinued 6 MG PO DAILY June 27, 2021 10:47am August 14, 2021 3:03pm Start: 06-07-2021 End: 06-27-2021 take 9 mg by mouth once daily Budesonide Discontinued 9 MG PO DAILY June 07, 2021 3:08pm June 27, 2021 10:47am Start: 06-07-2021 End: 06-27-2021 take 3 capsules by mouth once daily Budesonide 3 mg capsule,delayed,extend.release Discontinued 9 mg PO DAILY June 07, 2021 1:00am June 27, 2021 10:47am busPIRone hydrochloride 15 mg oral tablet (20 sources) Start: 06-12-2023 take 1 tablet by mouth twice daily busPIRone (BUSPAR) 15 MG tablet Take 1 (one) tablet (15 mg total) by mouth 2 (two) times a day . 06/12/2023 Active Start: 02-25-2023 End: 02-19-2023 take 1 tablet by mouth twice daily busPIRone 15 mg oral tablet 1 (one) Tablet bid for 30 days Quantity: 60 {Tablet} Refills: 0 Ordered: 25-Feb-2023 Odalys Raymond DO, DO, Kathleen Start : 25-Feb-2023 End : 19-Feb-2023 Active Start: 02-25-2023 End: 02-19-2023 take 1 tablet by mouth twice daily busPIRone 15 mg oral tablet 1 (one) Tablet bid for 30 days Quantity: 60 {Tablet} Refills: 0 Ordered: 25-Feb-2023 Odalys Raymond DO, DO, Kathleen Start : 25-Feb-2023 End : 19-Feb-2023 Active Start: 04-03-2022 take 1 tablet by parul th twice daily busPIRone HCl 15 MG Oral Tablet 1 (one) Tablet bid for 30 days Quantity: 60 {Tablet} Refills: 3 Ordered: 03-Apr-2022 Odalys Raymond DO, DO, Kathleen Start : 03-Apr-2022 Active Start: 03-25-2021 take 1 tablet by parul th twice daily busPIRone HCl 15 MG Oral Tablet 1 (one) Tablet bid for 30 days Quantity: 60 {Tablet} Refills: 12 Ordered: 25-Mar-2021 Odalys Raymond DO, DO, Kathleen Start : 25-Mar-2021 Active Start: 11-23-2020 End: 06-27-2021 take 15 mg by mouth once daily Buspirone Discontinued 15 MG PO DAILY November 23, 2020 10:23pm June 27, 2021 10:47am Start: 02-20-2020 take 1 tablet by parul twice daily busPIRone HCl 15 MG Oral Tablet 1 (one) Tablet bid for 30 days Quantity: 60 {Tablet} Refills: 12 Ordered: 20-Feb-2020 Odalys Raymond DO, DO, Kathleen Start : 20-Feb-2020 Active Start: 12-05-2019 take 1 tablet by parul twice daily busPIRone HCl 15 MG Oral Tablet 1 (one) Tablet bid for 30 days Quantity: 60 {Tablet} Refills: 0 Ordered: 05-Dec-2019 Odalys Raymond DO, DO, Kathleen Start : 05-Dec-2019 Active Start: 12-05-2019 take 1 tablet by parul twice daily busPIRone HCl 15 MG Oral Tablet 1 (one) Tablet bid for 30 days Quantity: 60 {Tablet} Refills: 0 Ordered: 05-Dec-2019 Odalys Raymond DO, DO, Kathleen Start : 05-Dec-2019 Active Start: 08-03-2019 take 1 tablet by parul twice daily busPIRone HCl 15 MG Oral Tablet 1 (one) Tablet bid for 0 days Quantity: 60 {Tablet} Refills: 3 Ordered: 03-Aug-2019 Odalys Raymond DO, DO, Kathleen Start : 03-Aug-2019 Active Start: 05-31-2018 take 1 tablet by parul twice daily BusPIRone HCl 15 MG Oral Tablet 1 (one) Tablet bid for 0 days Quantity: 60 {Tablet} Refills: 3 Ordered: 31-May-2018 Odalys Raymond DO, DO, Kathleen Start : 31-May-2018 Active Start: 01-20-2018 take 1 tablet by parul twice daily BusPIRone HCl 15 MG Oral Tablet 1 (one) Tablet bid for 0 days Quantity: 60 {Tablet} Refills: 3 Ordered: 20-Jan-2018 Odalys Raymond DO, DO, Kathleen Start : 20-Jan-2018 Active cholecalciferol 0.125 mg oral tablet (3 sources) Vitamin D Start: 11-23-2020 take 1 tablet by mouth once daily Cholecalciferol (Vitamin D3) (Vitamin D3) 125 mcg (5,000 unit) Tablet Active 125 MCG PO DAILY November 23, 2020 10:23pm colestipol hydrochloride 1000 mg oral tablet (13 sources) Bile Acid Sequestrant Start: 06-12-2023 take 1 tablet by mouth twice daily colestipoL (COLESTID) 1 gram tablet Take 1 (one) tablet (1 g total) by mouth 2 (two) times a day . 06/12/2023 Active Start: 02-10-2022 take 2 tablets by mo uth twice daily Colestipol 1 gram tablet Active 0 .ROUTE .COMPLEX 360 0 February 10, 2022 8:30am TAKE 2 TABLETS BY MOUTH TWICE DAILY Start: 08-14-2021 End: 10-25-2021 take 2 g by mouth twice daily Colestipol Active 2 GM P O TWICE A DAY 360 October 25, 2021 2:43pm Start: 08-14-2021 End: 02-10-2022 Colestipol 1 gram tablet Discontinued 2 g PO TWICE A DAY 360 0 January 23, 2022 2:41pm February 10, 2022 8:30am dicyclomine hydrochloride 20 mg oral tablet (15 sources) Anticholinergic Start: 06-07-2021 End: 07-08-2022 take 1 tablet by mouth three times daily as needed dicyclomine (BENTYL) 20 mg tablet Take 1 (one) tablet (20 mg total) by mouth 3 (three) times a day as needed . 06/15/2023 Active escitalopram 20 mg oral tablet (20 sources) Serotonin Reuptake Inhibitor Start: 03-24-2023 take 1 tablet by mouth once daily escitalopram oxalate 20 mg oral tablet 1 (one) Tablet qd for 90 days Quantity: 90 {Tablet} Refills: 0 Ordered: 24-Mar-2023 Odalys Raymond DO, DO, Kathleen Start : 24-Mar-2023 Active Start: 02-10-2018 End: 03-17-2023 take 1 tablet by mouth once daily Escitalopram Oxalate 20 mg tablet Active 20 mg PO DAILY November 23, 2020 12:00am esomeprazole 20 mg delayed release oral capsule (3 sources) Proton Pump Inhibitor Start: 06-27-2021 take 1 capsule by mouth once daily Esomeprazole Magnesium (Nexium) 20 mg capsule,delayed release(DR/EC) Active 20 MG PO DAILY June 27, 2021 10:48am famotidine 20 mg oral tablet (3 sources) Histamine-2 Receptor Antagonist Start: 06-27-2021 take 20 mg by mouth once daily Famotidine Active 20 MG PO DAILY June 27, 2021 10:48am ibuprofen 800 mg oral tablet (20 sources) Nonsteroidal Anti-inflammatory Drug Start: 09-16-2024 take 1 tablet by mouth every eight hours as needed for pain ibuprofen (ADVIL,MOTRIN) 800 MG tablet Take 1 (one) tablet (800 mg total) by mouth every 8 (eight) hours as needed for pain . 90 tablet 1 09/16/2024 12:51 PM EDT 09/16/2024 Active Start: 11-23-2020 take 1 tablet by parul th twice daily Ibuprofen (Ibu) 800 mg Tablet Active 800 MG PO TWICE A DAY November 23, 2020 10:23pm Start: 11-22-2014 take 1 tablet by parul th three times daily as needed IBUPROFEN, 600MG (Oral Tablet) 1 (one) Tablet tid/prn for 90 days Refills: 0 Ordered: 22-Nov-2014 Odalys Raymond DO, DO, Kathleen Start : 22-Nov-2014 Active Comments: per ob for menstrual cramps Comment on above: per ob for menstrual cramps 24 hr metFORMIN hydrochloride 500 mg extended release oral tablet (20 sources) Biguanide Start: 06-12-2023 take 1 tablet by mouth once daily metFORMIN (GLUCOPHAGE-XR) 500 MG 24 hr tablet Take 1 (one) tablet (500 mg total) by mouth daily . 06/12/2023 Active Start: 06-12-2023 take 1 tablet by parul th twice daily metFORMIN (GLUCOPHAGE-XR) 500 MG 24 hr tablet Take 1 (one) tablet (500 mg total) by mouth 2 (two) times a day . 0 06/12/2023 Active Start: 03-23-2023 take 1 tablet by parul th twice daily metFORMIN 500 mg oral Tablet, Extended Release 24 hr 1 (one) Tablet bid for 90 days Quantity: 180 {Tablet} Refills: 0 Ordered: 23-Mar-2023 Odalys Raymond DO, DO, Kathleen Start : 23-Mar-2023 Active Comments: 03-23-23 No refills patient is overdue for an appointment Start: 02-07-2022 take 1 tablet by parul th twice daily metFORMIN HCl ER 500 MG Oral Tablet Extended Release 24 Hour 1 (one) Tablet bid for 90 days Quantity: 180 {Tablet} Refills: 1 Ordered: 07-Feb-2022 Odalys Raymond DO, DO, Kathleen Start : 07-Feb-2022 Active Start: 10-25-2021 take 1 tablet by parul th twice daily metFORMIN HCl ER 500 MG Oral Tablet Extended Release 24 Hour 1 (one) Tablet bid for 90 days Quantity: 180 {Tablet} Refills: 0 Ordered: 25-Oct-2021 Odalys Raymond DO, DO, Kathleen Start : 25-Oct-2021 Active Start: 05-22-2021 End: 06-27-2021 take 1 tablet by mouth once daily Metformin 500 mg tablet Active 500 mg PO DAILY June 27, 2021 10:45am Start: 05-22-2021 End: 06-27-2021 Metformin 500 mg tablet Disc ontinued NMA PO May 22, 2021 1:00am June 27, 2021 10:49am Start: 03-25-2021 End: 05-20-2021 take 1 tablet by mouth once daily metFORMIN HCl 1000 MG Oral Tablet 1 tab daily for 0 days Refills: 0 Ordered: 20-May-2021 Muna Singh LPN Start : 25-Mar-2021 End : 20-May-2021 Inactive Start: 02-08-2021 End: 2021 take 1 tablet by mouth once daily metFORMIN HCl ER 500 MG Oral Tablet Extended Release 24 Hour 1 (one) Tablet qd for 90 days Quantity: 90 {Tablet} Refills: 0 Ordered: 08-Feb-2021 Odalys Raymond DO, DO, Kathleen Start : 08-Feb-2021 End : 09-May-2021 Inactive Start: 11-30-2020 take 2 tablets by mo [facility] once daily metFORMIN HCl ER 500 MG Oral Tablet Extended Release 24 Hour 2 (two) Tablet qd for 90 days Quantity: 180 {Tablet} Refills: 0 Ordered: 30-Nov-2020 Jackelin Gomes CMA Start : 30-Nov-2020 Active Start: 11-30-2020 take 1 tablet by parul th once daily metFORMIN HCl 1000 MG Oral Tablet 1 tab daily for 0 days Refills: 0 Ordered: 30-Nov-2020 Jackelin Gomes CMA Start : 30-Nov-2020 Active take 1 tablet by parul th once daily metFORMIN HCl 500 MG Oral Tablet 1 tab daily (500 MG) Active Comment on above: 03-23-23 No refills patient is overdue for an appointment progesterone 200 mg oral capsule (1 source) Progesterone Start: 10-04-19 25 take 1 capsule by mouth once daily progesterone (Prometrium) 200 MG capsule Take 1 (one) capsule (200 mg total) by mouth nightly . 30 capsule 11 10/03/2024 Active Semaglutide (Ozempic) 1 mg/dose (2 mg/1.5 mL) pen injector (1 source) Start: 06-27-19 22 Semaglutide (Ozempic) 1 mg/dose (2 mg/1.5 mL) pen injector Active 1 mg SC BERMAN June 27, 2021 10:45am SUMAtriptan 100 mg oral tablet (20 sources) Serotonin-1b and Serotonin-1d Receptor Agonist Start: 12-09-19 End: 12-01-19 take 1 tablet by mouth every two hours as needed SUMAtriptan (IMITREX) 100 MG tablet Take 1 (one) tablet (100 mg total) by mouth every 2 (two) hours as needed . 12/08/2016 Active Completed/Discontinued Medications Medication Drug Class(es) Dates Sig (Normalized) Sig (Original) acetaminophen 325 mg / HYDROcodone bitartrate 5 mg oral tablet (3 sources) Opioid Agonist Start: 07-01-2021 End: 07-11-2021 Hydrocodone-Acetamino phen 5-325 mg tablet Discontinued 1 {tbl} PO EVERY 6 HOURS as needed for pain 8 2 0 July 01, 2021 July 11, 2021 10:29am Cholelithiasis with chronic cholecystitis Calculus of gallbladder with chronic cholecystitis without obstruction Start: 07-01-2021 End: 07-11-2021 take 1 tablet by mouth every six hours Hydrocodone-Acetaminophen Discontinued 1 TABLET PO EVERY 6 HOURS 8 2 July 01, 2021 8:14am July 11, 2021 10:29am acetaminophen 325 mg / oxyCODONE hydrochloride 5 mg oral tablet (20 sources) Opioid Agonist Start: 07-25-2015 End: 11-12-2016 take 1 tablet by mouth three times daily as needed Oxycodone-Acetaminophen 5-325 MG Oral Tablet 1 (one) Tablet tid/prn for 30 days Quantity: 90 {Tablet} Refills: 0 Ordered: 12-Nov-2016 Neema Jackson RN Start : 25-Jul-2015 End : 12-Nov-2016 Inactive Comments: ninety Comment on above: ninety bisacodyl 5 mg delayed release oral tablet (3 sources) Stimulant Laxative Start: 04-26-2021 End: 06-07-2021 take 5 mg by mouth once Bisacodyl Discontinued 5 MG PO ONCE April 26, 2021 2:47pm June 07, 2021 3:01pm cetirizine hydrochloride 10 mg oral capsule (3 sources) Histamine-1 Receptor Antagonist Start: 11-23-2020 End: 06-27-2021 take 10 mg by mouth once daily Cetirizine Discontinued 10 MG PO DAILY November 23, 2020 10:23pm June 27, 2021 10:47am ciprofloxacin 500 mg oral tablet (20 sources) Quinolone Antimicrobial Start: 11-30-2020 End: 01-23-2022 take 1 tablet by mouth twice daily Cipro 500 MG Oral Tablet 1 (one) Tablet bid for 0 days Quantity: 20 {Tablet} Refills: 0 Ordered: 23-Jan-2022 Jackelin Gomes CMA Start : 30-Nov-2020 End : 23-Jan-2022 Inactive clonazePAM 1 mg oral tablet (20 sources) Benzodiazepine Start: 05-05-2018 End: 11-30-2020 clonazePAM 1 MG Oral Tablet 1 (one) Tablet qdaily prn for 30 days Quantity: 30 {Tablet} Refills: 0 Ordered: 30-Nov-2020 Mariah Smith LPN Start : 05-May-2018 End : 30-Nov-2020 Discontinued Comments: [id number] Start: 01-20-2018 ClonazePAM 1 M G Oral Tablet 1 (one) Tablet qdaily prn for 30 days Quantity: 30 {Tablet} Refills: 0 Ordered: 20-Jan-2018 Odalys Raymond DO, DO, Kathleen Start : 20-Jan-2018 Active Comments: [id number] Comment on above: [id number] cyclobenzaprine hydrochloride 10 mg oral tablet (20 sources) Muscle Relaxant Start: 07-25-19 16 End: 01-21-20 18 take 1 tablet by mouth three times daily as needed Cyclobenzaprine HCl 10 MG Oral Tablet 1 (one) Tablet tid prn for 30 days Quantity: 90 {Tablet} Refills: 0 Ordered: 20-Jan-2018 Neema Jackson RN Start : 25-Jul-2015 End : 20-Jan-2018 Inactive ergocalciferol 1.25 mg oral tablet (20 sources) Provitamin D2 Compound Vitamin D 16737 U Or al Tablet 1 tab daily (47338 U) Active Lo Loestrin Fe 1 MG-10 MCG / 10 MCG Oral Tablet (20 sources) Estrogen Start: 11-23-19 15 End: 02-20-20 20 take 1 tablet by mouth once daily Lo Loestrin Fe 1 MG-10 MCG / 10 MCG Oral Tablet 1 (one) Tablet qd for 30 days Refills: 0 Ordered: 20-Feb-2020 GravJackelin ma CMA Start : 22-Nov-2014 End : 20-Feb-2020 Inactive Start: 11-22-2014 take 1 tablet by parul once daily LO LOESTRIN FE, 1 MG-10 MCG /10 MCG (Oral Tablet) 1 (one) Tablet qd for 30 days Refills: 0 Ordered: 22-Nov-2014 Odalys Raymond DO, DO, Kathleen Start : 22-Nov-2014 Active 24 hr etodolac 400 mg extended release oral tablet (20 sources) Nonsteroidal Anti-inflammatory Drug Start: 11-13-2016 End: 01-20-2018 take 2 tablets by mouth once daily Etodolac ER 400 MG Oral Tablet Extended Release 24 Hour 2 (two) Tablet qd for 0 days Quantity: 20 {Tablet} Refills: 0 Ordered: 20-Jan-2018 Neema Jackson RN Start : 13-Nov-2016 End : 20-Jan-2018 Inactive losartan potassium 25 mg oral tablet (20 sources) Angiotensin 2 Receptor Pepe Start: 02-07-2022 End: 10-15-2022 take 1 tablet by mouth once daily losartan 25 mg oral tablet 1 (one) Tablet daily for 90 days Quantity: 90 {Tablet} Refills: 1 Ordered: 15-Oct-2022 Adalid Garrison LPN Start : 07-Feb-2022 End : 15-Oct-2022 Discontinued Start: 01-23-2022 End: 01-23-2022 take 1 tablet by mouth once daily Losartan Potassium 25 MG Oral Tablet 1 (one) Tablet qd for 0 days Quantity: 90 {Tablet} Refills: 0 Ordered: 23-Jan-2022 Mandi GIL Odalys MandiOmaira jerez DOeen Start : 23-Jan-2022 End : 23-Jan-2022 Inactive Start: 10-28-2021 take 1 tablet by parul th once daily Losartan Potassium 25 MG Oral Tablet 1 (one) Tablet daily for 90 days Quantity: 90 {Tablet} Refills: 0 Ordered: 28-Oct-2021 Mandi GIL Odalys Raymond DO Odalys Start : 28-Oct-2021 Active Start: 10-21-2021 take 1 tablet by parul th once daily Losartan Potassium 100 MG Oral Tablet 1 (one) Tablet qd for 0 days Quantity: 90 {Tablet} Refills: 0 Ordered: 21-Oct-2021 Mandi GIL Odalys Raymond DO Odalys Start : 21-Oct-2021 Active Start: 08-21-2021 take 1 tablet by parul th once daily Losartan Potassium 25 MG Oral Tablet 1 (one) Tablet daily for 90 days Quantity: 90 {Tablet} Refills: 0 Ordered: 21-Aug-2021 Zamzam Moeller LPN Start : 21-Aug-2021 Active Start: 06-28-2021 take 50 mg by mouth once daily Losartan Active 50 MG PO DAILY June 28, 2021 9:28am Start: 11-30-2020 take 1 tablet by parul th once daily Losartan Potassium 100 MG Oral Tablet 1 (one) Tablet qd for 0 days Quantity: 90 {Tablet} Refills: 3 Ordered: 30-Nov-2020 Jackelin Gomes CMA Start : 30-Nov-2020 Active Luer Lock Safety Syringes 25G X 5/8 3 ML Miscellaneous (19 sources) Start: 05-22-2021 Luer Lock Safe ty Syringes 25G X 5/8 3 ML Miscellaneous as directed for 0 days Quantity: 12 {Each} Refills: 4 Ordered: 22-May-2021 Muna Singh LPN Start : 22-May-2021 Active metaxalone 800 mg oral tablet (20 sources) Start: 06-11-2020 End: 11-30-2020 take 1 tablet by mouth three times daily as needed Metaxalone 800 MG Oral Tablet 1 (one) Tablet tid prn for 0 days Quantity: 30 {Tablet} Refills: 0 Ordered: 30-Nov-2020 Luis PINANunoMariah Start : 11-Jun-2020 End : 30-Nov-2020 Discontinued Start: 02-20-2020 take 1 tablet by parul th three times daily as needed Metaxalone 800 MG Oral Tablet 1 (one) Tablet tid prn for 0 days Quantity: 30 {Tablet} Refills: 0 Ordered: 20-Feb-2020 Odalys Raymond DO, DO, Kathleen Start : 20-Feb-2020 Active Start: 11-13-2016 End: 01-20-2018 take 1 tablet by mouth three times daily as needed Metaxalone 800 MG Oral Tablet 1 (one) Tablet tid prn for 0 days Quantity: 30 {Tablet} Refills: 0 Ordered: 20-Jan-2018 Neema Jackson RN Start : 13-Nov-2016 End : 20-Jan-2018 Inactive modafinil 100 mg oral tablet (5 sources) Sympathomimetic-like Agent Start: 07-09-2023 End: 10-03-2024 take 1 tablet by mouth once daily modafiniL (PROVIGIL) 100 MG tablet Take 1 (one) tablet (100 mg total) by mouth daily Thursday through Thursday only per patient . 07/09/2023 10/03/2024 Discontinued (Patient's Request) nebivolol 5 mg oral tablet (20 sources) Start: 11-30-2020 take 1 tablet by mouth twice daily Bystolic 5 mg oral tablet 1 (one) Tablet bid for 90 days Quantity: 180 {Tablet} Refills: 1 Ordered: 18-Dec-2022 Raven Velasquez DO Start : 18-Dec-2022 Active Comments: generic ok Start: 08-06-2017 take 1 tablet by parul th once daily Nebivolol (Bystolic) 5 mg Tablet Active 5 mg PO DAILY November 23, 2020 12:00am BP Comment on above: generic ok Ozempic (1 MG/DOSE) 4 MG/3ML Subcutaneous Solution Pen-injector (2 sources) Start: 06-27-19 Ozempic (1 MG/DOSE) 4 MG/3ML Subcutaneous Solution Pen-injector 1 (one) Solution Pen-injector inject 1 mg 1 time weekly for 0 days Quantity: 3 {Each} Refills: 3 Ordered: 27-Jun-2022 Odalys Raymond DO, DO, Kathleen Start : 27-Jun-2022 Active Comments: qty is 3 boxes - for 90 day script Comment on above: qty is 3 boxes - for 90 day script Ozempic 1 mg/dose (4 mg/3 mL) subcutaneous pen injector (6 sources) Start: 07-08-19 Ozempic 1 mg/dose (4 mg/3 mL) subcutaneous pen injector 1 (one) Solution Pen-injector inject 1 mg 1 time weekly for 0 days Quantity: 3 {Each} Refills: 3 Ordered: 08-Jul-2022 Odalys Raymond DO, DO, Kathleen Start : 08-Jul-2022 Active Comments: qty is 3 boxes - for 90 day script Comment on above: qty is 3 boxes - for 90 day script Ozempic 2 mg/dose (8 mg/3 mL) Pen (5 sources) Start: 06-14-19 24 End: 10-04-19 inject 0.75 mL by subcutaneous injection every week Ozempic 2 mg/dose (8 mg/3 mL) Pen Inject 0.75 mL (2 mg total) under the skin once a week . 06/14/2023 10/03/2024 Discontinued (Patient's Request) Start: 06-14-2023 inject 0.75 mL by berman bcutaneous injection every week Ozempic 2 mg/dose (8 mg/3 mL) Pen Inject 0.75 mL (2 mg total) under the skin once a week . 06/14/2023 Active Start: 06-14-2023 inject 0.75 mL by berman bcutaneous injection every week Ozempic 2 mg/dose (8 mg/3 mL) Pen Inject 0.75 mL (2 mg total) under the skin once a week . 0 06/14/2023 Active Paxlovid (300/100) 20 x 150 MG & 10 x 100MG Oral Tablet Therapy Pack (2 sources) Start: 11-11-2021 End: 01-23-2022 take 1 tablet by mouth once Paxlovid (300/100) 20 x 150 MG & 10 x 100MG Oral Tablet Therapy Pack use as directed per instructions in pack for 0 days Quantity: 1 {Packet} Refills: 0 Ordered: 23-Jan-2022 Gravius MANAGER SPORTS, Jackelin Start : 11-Nov-2021 End : 23-Jan-2022 Inactive Paxlovid (300/100) 20 x 150 MG & 10 x 100MG Oral Tablet Therapy Pack (8 sources) Start: 11-11-2021 End: 01-23-2022 take 1 tablet by mouth once Paxlovid (300/100) 20 x 150 MG & 10 x 100MG Oral Tablet Therapy Pack use as directed per instructions in pack for 0 days Quantity: 1 {Packet} Refills: 0 Ordered: 23-Jan-2022 Gravius MANAGER SPORTS, Jackelin Start : 11-Nov-2021 End : 23-Jan-2022 Inactive Paxlovid 20 x 150 MG & 10 x 100MG Oral Tablet Therapy Pack (1 source) Start: 11-11-2021 Paxlovid 20 x 150 MG & 10 x 100MG Oral Tablet Therapy Pack use as directed per instructions in pack for 0 days Quantity: 1 {Packet} Refills: 0 Ordered: 11-Nov-2021 Slarb Muna PINA Start : 11-Nov-2021 Active polyethylene glycol 3350 34360 mg powder for oral solution (3 sources) Osmotic Laxative Start: 04-26-2021 End: 06-07-2021 Polyethylene Glycol 3350 (Miralax) 17 gram/dose powder Discontinued 17 GM PO DAILY April 26, 2021 2:47pm June 07, 2021 3:02pm take as directed for bowel Quilipta (11 sources) Quilipta 60 mg Active 1 mg dose 1.5 ml semaglutide 1.34 mg/ml pen injector (19 sources) Start: 03-25-2021 inject 1 mg by subcutaneous injection every week Ozempic (1 MG/DOSE) 2 MG/1.5ML Subcutaneous Solution Pen-injector 1 (one) Milligram once weekly for 0 days Quantity: 1 {Unspecified} Refills: 3 Ordered: 25-Mar-2021 Odalys Raymond DO, DO, Kathleen Start : 25-Mar-2021 Active Comments: qty is 1 box 1mg dose once weekly updated script Start: 11-30-2020 Ozempic (0.25 or 0.5 MG/DOSE) 2 MG/1.5ML Subcutaneous Solution Pen-injector 0.25 Solution Pen-injector qweek for 4weeks then 0.5mg dose qweek for 2weeks for 0 days Quantity: 1 {Box} Refills: 0 Ordered: 30-Nov-2020 Odalys Raymond DO, DO, Kathleen Start : 30-Nov-2020 Active Comment on above: qty is 1 box 1mg dos e once weekly updated script Semaglutide (Ozempic) 1 mg/dose (2 mg/1.5 mL) Pen Injector (3 sources) Start: 05-16-2021 End: 06-27-2021 Semaglutide (Ozempic) 1 mg/dose (2 mg/1.5 mL) Pen Injector Discontinued 1 MG SC BERMAN May 16, 2021 5:19pm June 27, 2021 10:49am Start: 05-16-2021 End: 06-27-2021 Semaglutide (Ozempic) 1 mg/d ose (2 mg/1.5 mL) Pen Injector Discontinued 1 mg SC BERMAN May 16, 2021 1:00am June 27, 2021 10:49am vitamin b12 1 mg/ml injectable solution (20 sources) Vitamin B12 Start: 10-17-2022 cyanocobalamin (vit B-12) 1,000 mcg/mL injection solution 1 (one) ml daily x 5 days then weekly x 4 weeks then monthly for 0 days Quantity: 3 {Milliliter} Refills: 4 Ordered: 17-Oct-2022 Odalys Raymond DO, DO, Kathleen Start : 17-Oct-2022 Active Start: 10-17-2022 cyanocobalamin (vit B-12) 1,000 mcg/mL injection solution 1 (one) mL Every other day for 0 days Quantity: 3 {Milliliter} Refills: 0 Ordered: 17-Oct-2022 Odalys Raymond DO, DO, Kathleen Start : 17-Oct-2022 Active Start: 05-22-2021 Cyanocobalamin 1000 MCG/ML Injection Solution 1 (one) ml daily x 5 days then weekly x 4 weeks then monthly for 0 days Quantity: 3 {Milliliter} Refills: 4 Ordered: 22-May-2021 Muna Singh LPN Start : 22-May-2021 Active Start: 10-14-2018 End: 11-30-2020 Cyanocobalamin 1000 MCG/ML I njection Solution 1 (one) ml monthly for 0 days Quantity: 3 {Vial} Refills: 4 Ordered: 30-Nov-2020 Luis PINAMariah Start : 14-Oct-2018 End : 30-Nov-2020 Discontinued Start: 10-14-2018 Cyanocobalamin 1000 MCG/ML Injection Solution 1 (one) ml monthly for 0 days Quantity: 3 {Vial} Refills: 4 Ordered: 14-Oct-2018 Odalys Raymond DO, DO, Kathleen Start : 14-Oct-2018 Active Start: 04-12-2018 Cyanocobalamin 1000 MCG/ML Injection Solution 1 (one) ml q 2 weeks for one month then monthly for 0 days Quantity: 3 {Vial} Refills: 4 Ordered: 12-Apr-2018 Odalys Raymond DO, DO, Kathleen Start : 12-Apr-2018 Active cyanocobalamin ( B-12) 1,000 mcg/mL injection Inject 1 mL (1,000 mcg total) into the shoulder, thigh, or buttocks every 30 (thirty) days . Active Problems Active Problems Problem Classification Problem Date Documented Da te Episodic/Chronic Abdominal pain (20 sources) Pain in female pelvis; Translations: [Generalized abdominal pain] Onset: 12-24-2024 Resolved: 10-14-2018 01-20-2018 Episodic Administrative/social admission (20 sources) Counseling procedure with explicit context; Translations: [Patient encounter status] 10-14-2018 Episodic Anxiety disorders (20 sources) Anxiety; Translations: [Anxiety] 01-20-2018 Chronic Comment on above: situational situational- stable - CCRx Biliary tract disease (12 sources) Calculus of gallbladder with cholecystitis; Translations: [Calculus of gallbladder with chronic cholecystitis without obstruction] Episodic Cardiac dysrhythmias (20 sources) Tachycardia; Translations: [Tachycardia] Resolved: 10-14-2018 01-20-2018 Episodic Diabetes mellitus with complications (20 sources) Type II diabetes mellitus uncontrolled; Translations: [Uncontrolled type II diabetes mellitus] 11-30-2020 Chronic Diabetes mellitus without complication (20 sources) Type 2 diabetes mellitus; Translations: [Type II diabetes mellitus, well controlled] 05-20-2021 Chronic Diabetes mellitus without complication (20 sources) Abnormal glucose tolerance test; Translations: [Abnormal glucose tolerance test (Renamed from Abnormal glucose tolerance test (GTT))] Resolved: 02-08-2021 02-20-2020 Episodic Diabetes mellitus without complication (20 sources) Diabetes mellitus without complication Essential hypertension (20 sources) Benign hypertension; Translations: [HTN (hypertension), benign] 10-14-2018 Chronic Comment on above: already reduced losa rtan once with 50# of wt loss Female infertility (1 source) Female infertility; Translations: [Female infertility, unspecified] 08-12-2023 Chronic Genitourinary symptoms and ill-defined conditions (20 sources) Abnormal urine; Translations: [Abnormal urine] Resolved: 01-23-2022 11-30-2020 Episodic Headache, including migraine (20 sources) Migraine; Translations: [Migraines] 01-20-2018 Chronic Comment on above: infreq and stable Malaise and fatigue (3 sources) Asthenia; Translations: [Weakness] 06-27-2021 Episodic Menstrual disorders (1 source) Secondary oligomenorrhea; Translations: [Secondary oligomenorrhea] 10-03-2024 Chronic Mood disorders (20 sources) Acute depression; Translations: [Depression, acute] 10-14-2018 Chronic Comment on above: situational situational- stable- CCrx Mood disorders (20 sources) Mood disorders; Translations: [Major depressive disorder, single episode, unspecified] 01-20-2018 Comment on above: situational Neoplasms of unspecified nature or uncertain behavior (20 sources) Thrombocytosis; Translations: [Thrombocytosis] 01-29-2022 Episodic Nonspecific chest pain (3 sources) Chest pain; Translations: [Chest pain, unspecified] 06-27-2021 Episodic Nutritional deficiencies (20 sources) Vitamin D deficiency; Translations: [Vitamin D deficiency] 01-20-2018 Chronic Comment on above: currently takes 50K weekly will reduce to 3times a month Nutritional deficiencies (20 sources) Vitamin B12 deficiency (non anemic); Translations: [Cobalamin deficiency] 01-20-2018 Episodic Comment on above: has bottle at home - sister gives injections-- instructed once daily for 5days then once weekly for one month then qoweek for one month, then monthly - siddharth level in 6months Other complications of (2 sources) Other specified related conditions, first trimester; Translations: [Other specified related conditions, first trimester] Onset: 12-24-2024 Episodic Other complications of (2 sources) Other specified related conditions, unspecified trimester; Translations: [Other specified related conditions, unspecified trimester] Onset: 12-26-2024 Episodic Other connective tissue disease (20 sources) Spasm; Translations: [Muscle spasm] Resolved: 10-14-2018 01-20-2018 Episodic Other disorders of stomach and duodenum (3 sources) Gastroparesis syndrome; Translations: [Gastroparesis] 06-27-2021 Episodic Other female genital disorders (1 source) Abnormal uterine bleeding; Translations: [Abnormal uterine and vaginal bleeding, unspecified] 10-03-2024 Chronic Other gastrointestinal disorders (3 sources) Diarrhea; Translations: [Diarrhea, unspecified] 06-27-2021 Episodic Other gastrointestinal disorders (2 sources) Diarrhea, unspecified; Translations: [Diarrhea] Episodic Other infections; including parasitic (20 sources) Sequelae of other specified infectious and parasitic diseases; 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-30-2020 Chronic Comment on above: cont arb-- consider MB--- will reduce bp, treat padmini, wt loss and eat nonimflammatory foods, and treat dm and see if feels better Other liver diseases (6 sources) Steatosis of liver; Translations: [Fatty (change of) liver, not elsewhere classified] 04-26-2021 Chronic Other liver diseases (3 sources) Inflammatory disease of liver; Translations: [Inflammatory liver disease, unspecified] 07-11-2021 Chronic Other liver diseases (7 sources) Fatty (change of) liver, not elsewhere classified; Translations: [Other chronic nonalcoholic liver disease] Chronic Other liver diseases (2 sources) Inflammatory liver disease, unspecified; Translations: [Hepatitis, unspecified] Chronic Other nutritional; endocrine; and metabolic disorders (20 sources) Body mass index 40+ - severely obese; Translations: [BMI 50.0-59.9, adult] Resolved: 01-23-2022 01-20-2018 Chronic Other nutritional; endocrine; and metabolic disorders (20 sources) Metabolic syndrome X; Translations: [Insulin resistance] 01-20-2018 Chronic Other and delivery including normal (4 sources) ; Translations: [Encounter for supervision of normal , unspecified, unspecified trimester] Onset: 09-05-2024 09-05-2024 Episodic Other screening for suspected conditions (not mental disorders or infectious disease) (8 sources) Coag./bleeding tests abnormal; Translations: [Abnormal coagulation profile] Onset: 03-31-2024 Episodic Comment on above: Repeat Lab work on is normal. No need for further interventions. 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 Thyroid disorders (20 sources) Goiter; Translations: [Thyromegaly] 01-20-2018 Chronic Unclassified (20 sources) Unclassified (20 sources) Thyromegaly Unclassified (20 sources) Insulin resistance Unclassified (20 sources) Muscle spasm Unclassified (20 sources) BMI 50.0-59.9, adult Unclassified (20 sources) Non-smoker; Translations: [Non-smoker] 01-20-2018 Unclassified (20 sources) HTN (hypertension), benign Unclassified (20 sources) Nutritional counseling; Translations: [Patient encounter status] 10-14-2018 Unclassified (20 sources) Abnormal glucose tolerance test (Renamed from Abnormal glucose tolerance test (GTT)) Unclassified (1 source) Patient encounter status 03-21-2024 Past or Other Problems Problem Classification Problem Date Documented Date Episodic/Chronic Spontaneous (7 sources) Complete miscarriage; Translations: [Complete or unspecified spontaneous without complication] Onset: 09-16-2024 10-09-2024 Episodic Unclassified (17 sources) Pregnancies (); Translations: [Pregnancies ()] 01-20-2018 Comment on above: 0. Unclassified (20 sources) Acute low back pain with radicular symptoms, duration less than 6 weeks Unclassified (20 sources) Pelvic pain in female Unclassified (16 sources) Non-smoker; Translations: [Non-smoker] 01-20-2018 Unclassified (20 sources) Pregnancies (); Translations: [Pregnancies ()] 02-20-2020 Comment on above: 0. Unclassified (17 sources) Post-COVID syndrome Unclassified (8 sources) S/P cholecystectomy Unclassified (20 sources) Unspecified Diagnosis 11-11-2021 NEGATED: Highlighted row has been ruled out!Unclassified (1 source) No known active problems 10-09-2024 Results Test Name Value Interpretation Reference Range Facility HCG, TOTAL, QNon 12-28-2024 HCG Qn 380 m[IU]/mL High [facility] Comment on above: Result Comment: Refe rence Range Non or premenopausal <5 Postmenopausal <10 Values from different assay methods may vary. The use of this assay to monitor or to diagnose patients with cancer or any condition unrelated to has not been cleared or approved by the FDA or the campus chaplain of the assay. Performed By: #### [id number], [id number] #### [facility] [address], [address] [place] [phone] [employer]: Ben Powell MD PROGESTERONEon 12-28-2024 PROGESTERONE 21.1 ng/mL Normal [facility] Comment on above: Result Comment: Refe rence Ranges Female Follicular Phase < 1.0 Luteal Phase 2.6-21.5 Post menopausal < 0.5 1st Trimester 4.1-34.0 2nd Trimester 24.0-76.0 3rd Trimester 52.0-302.0 Performed By: #### 8 [id number], [id number] #### [facility] [address], [address] [place] [phone] [employer]ator [employer]: Ben Powell MD ED Prov Noteon 12-26-2024 ED Prov Note ED PROVIDER NOTE [facility] NAME: Alma Ulloa AGE: 39 y.o. : 1985 VISIT DATE: 12/26/2024 CSN: [id number] PCP: Odalys Raymond DO Chief Complaint Patient presents with Sore Throat Abdominal Pain 39-year-old female patient presents for sore throat as well as pelvic pain in setting of positive home test. Patient states she is approximately 4 weeks by her last menstrual period, states she has had intermittent pelvic pain, recent hCG levels under threshold for ultrasound however has standing orders through OB to have labs done today. States she initially came in for sore throat concern that she cannot go to work due to her sore throat being contagious. Requested us to draw and send out the labs as she had to get an hCG and progesterone taken today regardless. She is endorsing some mild intermittent cramp-like pelvic pain on the right, no vaginal bleeding Past Medical History: Diagnosis Date Diabetes mellitus (HCC) 2020 Type 2, after having covid, well controlled with recent A1C of 5.3 on 06/17 Migraine 2011 Imitrex 100mg as needed Polycystic ovary syndrome 2013 STD (sexually transmitted disease) Urogenital trichomoniasis 2020 Treated with Flagyl 2000mg one chose Past Surgical History: Procedure Laterality Date CHOLECYSTECTOMY 06/2021 [facility] Family History Problem Relation Age of Onset Hypertension Mother Hypertension Father Stroke Father Breast cancer Paternal Aunt Breast cancer Paternal Aunt Breast cancer Paternal Grandmother Diabetes Paternal Grandmother Social History [1] Previous Medications Medication Sig busPIRone (BUSPAR) 15 MG tablet Take 1 (one) tablet (15 mg total) by mouth 2 (two) times a day . colestipoL (COLESTID) 1 gram tablet Take 1 (one) tablet (1 g total) by mouth 2 (two) times a day . escitalopram oxalate (LEXAPRO) 20 MG tablet Take 1 (one) tablet (20 mg total) by mouth daily . metFORMIN (GLUCOPHAGE-XR) 500 MG 24 hr tablet Take 1 (one) tablet (500 mg total) by mouth daily . nebivoloL (BYSTOLIC) 5 MG tablet Take 1 (one) tablet (5 mg total) by mouth daily Patient states she only takes one tablet daily. . progesterone (Prometrium) 200 MG capsule Take 1 (one) capsule (200 mg total) by mouth nightly Start when positive test and take once daily . cyanocobalamin (B-12) 1,000 mcg/mL injection Inject 1 mL (1,000 mcg total) into the shoulder, thigh, or buttocks every 30 (thirty) days . cyclobenzaprine (FLEXERIL) 10 MG tablet Take 1 (one) tablet (10 mg total) by mouth 3 (three) times a day as needed for muscle spasms . dicyclomine (BENTYL) 20 mg tablet Take 1 (one) tablet (20 mg total) by mouth 3 (three) times a day as needed . ibuprofen (ADVIL,MOTRIN) 800 MG tablet Take 1 (one) tablet (800 mg total) by mouth every 8 (eight) hours as needed for pain . letrozole (FEMARA) 2.5 mg tablet Take 1 (one) tablet (2.5 mg total) by mouth daily Take one tablet orally on day 3, 4, 5, 6, and 7 of menstrual cycle . metoclopramide (Reglan) 10 MG tablet Take 1 (one) tablet (10 mg total) by mouth 4 (four) times a day with meals and nightly . prochlorperazine (Compazine) 10 MG tablet Take 1 (one) tablet (10 mg total) by mouth every 6 (six) hours as needed for nausea . SUMAtriptan (IMITREX) 100 MG tablet Take 1 (one) tablet (100 mg total) by mouth every 2 (two) hours as needed . Allergies[2] Review of Systems All other systems reviewed and are negative. Patient Vitals for the past 24 hrs: BP Temp Temp src Pulse Resp SpO2 12/26/24 0728 114/74 97.9 degrees F (36.6 degrees C) Oral 86 18 98 % Physical Exam Vitals and nursing note reviewed. Constitutional: Appearance: Normal appearance. HENT: Head: Normocephalic and atraumatic. Right Ear: External ear normal. Left Ear: External ear normal. Nose: Nose normal. Mouth/Throat: Mouth: Mucous membranes are moist. Pharynx: Oropharynx is clear. Eyes: Extraocular Movements: Extraocular movements intact. Conjunctiva/sclera: Conjunctivae normal. Pupils: Pupils are equal, round, and reactive to light. Cardiovascular: Rate and Rhythm: Normal rate and regular rhythm. Musculoskeletal: General: Normal range of motion. Cervical back: Normal range of motion and neck supple. Pulmonary: Effort: Pulmonary effort is normal. Breath sounds: Normal breath sounds. Abdominal: General: Abdomen is flat. Bowel sounds are normal. Palpations: Abdomen is soft. Neurological: General: No focal deficit present. Mental Status: She is alert and oriented to person, place, and time. Mental status is at baseline. Psychiatric: Mood and Affect: Mood normal. Thought Content: Thought content normal. Laboratory & Radiographic Imaging (if done): Results for orders placed or performed during the hospital encounter of 12/26/24 POC Strep A - Molecular Result Value Ref Range Strep A Screen Negative Negati (more content not included)... Normal [facility] HCG, BLOOD, QUANTITATIVEon 0 12-26-2024 HCG, QUANTITATIVE 176 mIU/mL High 0-5 [facility] Comment on above: Order Comment: Males and non females: <5 mIU/mL Females during : 3-4 weeks 9-130 mIU/mL 4-5 weeks 75-2600 mIU/mL 5-6 weeks 850-20,800 mIU/mL 6-7 weeks 4000-100,200 mIU/mL 7-12 weeks 11,500-289,000 mIU/mL 12-16 weeks 18,300-137,000 mIU/mL 16-29 weeks 1,400-53,000 mIU/mL 29-41 weeks 940-60,000 mIU/mL Performed By: #### 4 [id number] #### LAB [address] [place] [address] Jesus Camilo M.D. [id number] POC STREP A - MOLECULAR RALS on 12-26-2024 POC STREP A SCREEN Negative Normal Negative [facility] PROGESTERONEon 12-26-2024 PROGESTERONE 16.3 ng/mL Normal [facility] Comment on above: Order Comment: Expec geoff Values: Males: 0 -0.6 ng/mL Non females: Follicular phase: 0 - 1.5 ng/mL Luteal phase: 2.3 - 25.0 ng/mL Mid-luteal phase: 3.5 - 25.0 ng/mL Postmenopausal: 0 - 0.7 ng/mL Oral contraceptives: 0 -0.4 ng/mL females: First trimester: 8.1 - 42.0 ng/mL Performed By: #### 4 [id number] #### [facility] [place], [place] [address] Wes Sargent M.D. [id number] CBC WITH AUTO DIFFERENTIALon 12-24-2024 AUTO NRBC 0.0 % [facility] Comment on above: Performed By: #### L [id number] #### [facility] [address] [address] Jesus Camilo M.D. [id number] AUTO NRBC ABS COUNT 0.00 K/mcL Normal 0.00-0.00 [facility] Comment on above: Performed By: #### L [id number] #### LAB [address] [place] [address] Jesus Camilo M.D. [id number] BASOPHILS ABSOLUTE COUNT 0.09 K/mcL Normal 0.00-0.30 [facility] Comment on above: Performed By: #### L [id number] #### LAB [address] [place] [address] Jesus Camilo M.D. [id number] Basophils/100 WBC (Bld) 1.0 % [facility] Comment on above: Performed By: #### L [id number] #### LAB [address] [place] [address] Jesus Camilo M.D. [id number] Eosinophils (Bld) [#/Vol] 0.20 10*3/uL Normal 0.00-0.50 [facility] Comment on above: Performed By: #### L [id number] #### LAB [address] [place] [address] Jesus Camilo M.D. [id number] Eosinophils/100 WBC (Bld) 2.1 % [facility] Comment on above: Performed By: #### L [id number] #### LAB [address] [place] [address] Jesus Camilo M.D. [id number] Erythrocyte distribution width (RBC) [Ratio] 14.6 % Normal 11.6-14.8 [facility] Comment on above: Performed By: #### L [id number] #### LAB [address] [address] Jesus Camilo M.D. [id number] Hematocrit (Bld) [Volume fraction] 40.1 % Normal 36.0-46.0 [facility] Comment on above: Performed By: #### L [id number] #### LAB [address] [address] Jesus Camilo M.D. [id number] Hemoglobin (Bld) [Mass/Vol] 13.4 g/dL Normal 12.0-16.0 [facility] Comment on above: Performed By: #### L [id number] #### LAB [address] [place] [address] Jesus Camilo M.D. [id number] IG ABSOLUTE 0.06 K/mcL Normal 0.00-0.30 [facility] Comment on above: Performed By: #### L [id number] #### LAB [address] [place] [address] Jesus Camilo M.D. [id number] IG PERCENT 0.60 % Normal [facility] Comment on above: Result Comment: The IG parameter is the percentage of metamyelocytes, myelocytes and promyelocytes. An immature granulocyte count (IG) of 1% or more suggests the possibility of infection, an IG count of 3% is very likely related to an infection. Performed By: #### L [id number] #### LAB [address] [place] [address] Jesus Camilo M.D. [id number] Lymphocytes (Bld) [#/Vol] 3.41 10*3/uL Normal 0.90-4.00 [facility] Comment on above: Performed By: #### L [id number] #### LAB [address] [place] [address] Jesus Camilo M.D. [id number] Lymphocytes/100 WBC (Bld) 36.1 % Normal [facility] Comment on above: Performed By: #### L [id number] #### LAB [address] [address] Jesus Camilo M.D. [id number] MCH (RBC) [Entitic mass] 28.9 pg Normal 26.0-34.0 [facility] Comment on above: Performed By: #### L [id number] #### [facility] [address] [address] Jesus Camilo M.D. [id number] MCV (RBC) [Entitic vol] 86.6 fL Normal 80.0-100.0 [facility] Comment on above: Performed By: #### L [id number] #### LAB [address] [address] Jesus Camilo M.D. [id number] MEAN CORPUSCULAR HEMOGLOBIN CONC 33.4 g/dL Normal 31.0-37.0 [facility] Comment on above: Performed By: #### L [id number] #### [facility] [address] [address] Jesus Camilo M.D. [id number] Monocytes (Bld) [#/Vol] 0.38 10*3/uL Normal 0.30-0.90 [facility] Comment on above: Performed By: #### L [id number] #### LAB [address] [place] [address] Jesus Camilo M.D. [id number] Monocytes/100 WBC (Bld) 4.0 % Normal [facility] Comment on above: Performed By: #### L [id number] #### [facility] [address] [address] Jesus Camilo M.D. [id number] NEUTROPHILS ABSOLUTE COUNT 5.31 K/mcL Normal 1.70-7.00 [facility] Comment on above: Performed By: #### L [id number] #### LAB [address] [place] [address] Jesus Camilo M.D. [id number] Neutrophils/100 WBC (Bld) 56.2 % Normal [facility] Comment on above: Performed By: #### L [id number] #### [facility] [address] [address] Jesus Camilo M.D. [id number] Platelet mean volume (Bld) [Entitic vol] 8.4 fL Low 9.4-12.4 [facility] Comment on above: Performed By: #### L [id number] #### [facility] [address] [address] Jesus Camilo M.D. [id number] Platelets (Bld) [#/Vol] 416 10*3/uL High 150-400 [facility] Comment on above: Performed By: #### L [id number] #### [facility] [address] [address] Jesus Camilo M.D. [id number] RBC (Bld) [#/Vol] 4.63 10*6/uL Normal 4.00-5.20 [facility] Comment on above: Performed By: #### L [id number] #### [facility] [address] [address] Jesus Camilo M.D. [id number] WBC (Bld) [#/Vol] 9.45 10*3/uL Normal 4.50-11.00 [facility] Comment on above: Performed By: #### L [id number] #### [facility] [address] [address] Jesus Camilo M.D. [id number] COMPREHENSIVE METABOLIC PANE Craig 12-24-2024 Albumin [Mass/Vol] 4.2 g/dL Normal 3.2-5.2 [facility] Comment on above: Order Comment: [facility] has implemented the eGFR calculation approach that does not have a coefficient for race that conforms to the NKF-ASN Task Force Recommendations. Performed By: #### 4 [id number] ####[facility] [address] [address] Jesus Camilo M.D. [id number] ALP [Catalytic activity/Vol] 69 U/L Normal 40-140 [facility] Comment on above: Order Comment: [facility] has implemented the eGFR calculation approach that does not have a coefficient for race that conforms to the NKF-ASN Task Force Recommendations. Performed By: #### 4 [id number] #### [facility] [address] [address] Jesus Camilo M.D. [id number] ALT [Catalytic activity/Vol] 35 U/L Normal 0-35 U/L [facility] Comment on above: Order Comment: [facility] has implemented the eGFR calculation approach that does not have a coefficient for race that conforms to the NKF-ASN Task Force Recommendations. Performed By: #### 4 [id number] #### [facility] [address] [address] Jesus Camilo M.D. [id number] Anion gap [Moles/Vol] 18 mmol/L Normal 10-20 [facility] Comment on above: Order Comment: [facility] has implemented the eGFR calculation approach that does not have a coefficient for race that conforms to the NKF-ASN Task Force Recommendations. Performed By: #### 4 [id number] #### [facility] [address] [address] Jesus Camilo M.D. [id number] AST [Catalytic activity/Vol] 18 U/L Normal 0-35 U/L [facility] Comment on above: Order Comment: [facility] has implemented the eGFR calculation approach that does not have a coefficient for race that conforms to the NKF-ASN Task Force Recommendations. Performed By: #### 4 [id number] #### [facility] [address] [address] Jesus Camilo M.D. [id number] BILIRUBIN TOTAL < Normal 0.0-1.3 [facility] Comment on above: Order Comment: [facility] has implemented the eGFR calculation approach that does not have a coefficient for race that conforms to the NKF-ASN Task Force Recommendations. Performed By: #### 4 [id number] #### [facility] [address] [address] Jesus Camilo M.D. [id number] Calcium [Mass/Vol] 9.3 mg/dL Normal 8.4-10.2 [facility] Comment on above: Order Comment: [facility] has implemented the eGFR calculation approach that does not have a coefficient for race that conforms to the NKF-ASN Task Force Recommendations. Performed By: #### 4 6126 #### LAB [address] [address] Jesus Camilo M.D. [id number] Chloride [Moles/Vol] 103 mmol/L Normal 98-108 [facility] Comment on above: Order Comment: [facility] has implemented the eGFR calculation approach that does not have a coefficient for race that conforms to the NKF-ASN Task Force Recommendations. Performed By: #### 4 6126 #### LAB [address] [address] Jesus Camilo M.D. [id number] Creatinine [Mass/Vol] 0.86 mg/dL Normal 0.40-1.10 [facility] Comment on above: Order Comment: [facility] has implemented the eGFR calculation approach that does not have a coefficient for race that conforms to the NKF-ASN Task Force Recommendations. Performed By: #### 4 6126 #### LAB [address] [address] Jesus Camilo M.D. [id number] EGFR 89 mL/min/1.73 m2 Normal >=60 [facility] Comment on above: Order Comment: [facility] has implemented the eGFR calculation approach that does not have a coefficient for race that conforms to the NKF-ASN Task Force Recommendations. Result Comment: Yissel mated GFR was calculated using the 2020 CKD-EPI creatinine equation. Performed By: #### 4 6126 ####[facility] [address] [address] Jesus Camilo M.D. [id number] Glucose [Mass/Vol] 116 mg/dL High 65-99 [facility] Comment on above: Order Comment: [facility] has implemented the eGFR calculation approach that does not have a coefficient for race that conforms to the NKF-ASN Task Force Recommendations. Performed By: #### 4 6126 #### LAB [address] [address] Jesus Camilo M.D. [id number] HCO3 (Bld) [Moles/Vol] 20 mmol/L Low 21-32 [facility] Comment on above: Order Comment: [facility] has implemented the eGFR calculation approach that does not have a coefficient for race that conforms to the NKF-ASN Task Force Recommendations. Performed By: #### 4 6126 #### LAB [address] [address] Jesus Camilo M.D. [id number] Potassium [Moles/Vol] 3.6 mmol/L Normal 3.5-5.1 [facility] Comment on above: Order Comment: [facility] has implemented the eGFR calculation approach that does not have a coefficient for race that conforms to the NKF-ASN Task Force Recommendations. Performed By: #### 4 6126 #### LAB [address] [address] Jesus Camilo M.D. [id number] Protein [Mass/Vol] 7.2 g/dL Normal 6.0-8.0 [facility] Comment on above: Order Comment: [facility] has implemented the eGFR calculation approach that does not have a coefficient for race that conforms to the NKF-ASN Task Force Recommendations. Performed By: #### 4 6126 #### LAB [address] [address] Jesus Camilo M.D. [id number] Sodium [Moles/Vol] 137 mmol/L Normal 135-145 [facility] Comment on above: Order Comment: [facility] has implemented the eGFR calculation approach that does not have a coefficient for race that conforms to the NKF-ASN Task Force Recommendations. Performed By: #### 4 6126 #### LAB [address] [address] Jesus Camilo M.D. [id number] Urea nitrogen [Mass/Vol] 19 mg/dL Normal 8-25 [facility] Comment on above: Order Comment: [facility] has implemented the eGFR calculation approach that does not have a coefficient for race that conforms to the NKF-ASN Task Force Recommendations. Performed By: #### 4 6126 #### LAB [address] [place], [place] [address] Jesus Camilo M.D. [id number] Urea nitrogen/Creatinine [Mass ratio] 22.1 mg/mg High 10.0-20.0 [facility] Comment on above: Order Comment: [facility] has implemented the eGFR calculation approach that does not have a coefficient for race that conforms to the NKF-ASN Task Force Recommendations. Performed By: #### 4 6126 #### LAB [address] [place], [place] [address] Jesus Camilo M.D. [id number] ED Prov Noteon 12-24-2024 ED Prov Note [facility] Note: NAME: Alma Ulloa 39 y.o. CSN: [id number] PCP: Odalys Raymond DO History: Chief Complaint: vaginal cramping HPI: The history was obtained from the patient. Alma is a 39 y.o. female who presents with a chief complaint of vaginal cramping. Patient has a past medical history of DM2, migraines, PCOS. She is G2, P0 miscarriage in August 2024, follows with [facility]. Approximately 4 weeks gestation with LMP 11/26/2024 with positive hCG drawn yesterday. Presents to the emergency department today with abdominal cramping, right worse than left. Symptoms started this morning as she got up to use the restroom. She states that she has had to urinate more frequently over the last couple days however no burning, urgency, flank pain, fever or chills. She denies any vaginal discharge including bleeding. She states it does feel similar to when she had her prior miscarriage. She does not have any chest pain, shortness of breath, dizziness. PMHx: Past Medical History: Diagnosis Date Diabetes mellitus (HCC) 2020 Type 2, after having covid, well controlled with recent A1C of 5.3 on 06/17 Migraine 2011 Imitrex 100mg as needed Polycystic ovary syndrome 2013 STD (sexually transmitted disease) Urogenital trichomoniasis 2020 Treated with Flagyl 2000mg one chose PMSx: Past Surgical History: Procedure Laterality Date CHOLECYSTECTOMY 06/2021 [facility]. Hx: Family History Problem Relation Age of Onset Hypertension Mother Hypertension Father Stroke Father Breast cancer Paternal Aunt Breast cancer Paternal Aunt Breast cancer Paternal Grandmother Diabetes Paternal Grandmother SOC. Hx: Social History [1] MEDs: Previous Medications Medication Sig busPIRone (BUSPAR) 15 MG tablet Take 1 (one) tablet (15 mg total) by mouth 2 (two) times a day . colestipoL (COLESTID) 1 gram tablet Take 1 (one) tablet (1 g total) by mouth 2 (two) times a day . cyanocobalamin (B-12) 1,000 mcg/mL injection Inject 1 mL (1,000 mcg total) into the shoulder, thigh, or buttocks every 30 (thirty) days . dicyclomine (BENTYL) 20 mg tablet Take 1 (one) tablet (20 mg total) by mouth 3 (three) times a day as needed . escitalopram oxalate (LEXAPRO) 20 MG tablet Take 1 (one) tablet (20 mg total) by mouth daily . ibuprofen (ADVIL,MOTRIN) 800 MG tablet Take 1 (one) tablet (800 mg total) by mouth every 8 (eight) hours as needed for pain . letrozole (FEMARA) 2.5 mg tablet Take 1 (one) tablet (2.5 mg total) by mouth daily Take one tablet orally on day 3, 4, 5, 6, and 7 of menstrual cycle . metFORMIN (GLUCOPHAGE-XR) 500 MG 24 hr tablet Take 1 (one) tablet (500 mg total) by mouth daily . metoclopramide (Reglan) 10 MG tablet Take 1 (one) tablet (10 mg total) by mouth 4 (four) times a day with meals and nightly . nebivoloL (BYSTOLIC) 5 MG tablet Take 1 (one) tablet (5 mg total) by mouth daily Patient states she only takes one tablet daily. . prochlorperazine (Compazine) 10 MG tablet Take 1 (one) tablet (10 mg total) by mouth every 6 (six) hours as needed for nausea . progesterone (Prometrium) 200 MG capsule Take 1 (one) capsule (200 mg total) by mouth nightly Start when positive test and take once daily . SUMAtriptan (IMITREX) 100 MG tablet Take 1 (one) tablet (100 mg total) by mouth every 2 (two) hours as needed . ALL: Allergies[2] ROS: Positives and pertinent negatives as per HPI. All other systems were reviewed and are negative. Physical Exam: Patient Vitals for the past 24 hrs: BP Temp Temp src Pulse Resp SpO2 12/24/24 0715 130/69 -- -- 95 (!) 22 97 % 12/24/24 0618 135/88 98 degrees F (36.7 degrees C) Oral (!) 103 16 99 % Physical Exam Vitals and nursing note reviewed. Constitutional: General: She is not in acute distress. Appearance: Normal appearance. She is well-developed. She is obese. She is not toxic-appearing. HENT: Head: Normocephalic and atraumatic. Nose: Nose normal. Eyes: General: No scleral icterus. Conjunctiva/sclera: Conjunctivae normal. Cardiovascular: Rate and Rhythm: Normal rate and regular rhythm. Heart sounds: Normal heart sounds. No murmur heard. Musculoskeletal: Right lower leg: No swelling. No edema. Left lower leg: No swelling. No edema. Pulmonary: Effort: Pulmonary effort is normal. No respiratory distress. Breath sounds: Normal breath sounds and air entry. Abdominal: General: Abdomen is flat. Bowel sounds are normal. There is no distension. Palpations: Abdomen is soft. Tenderness: There is abdominal tenderness in the right lower quadrant. There is guarding. There is no right CVA tenderness. Skin: General: Skin is warm and dry. Findings: No rash. Neurological: General: No focal deficit present. Mental Status: She is alert and oriented to person, place, and time. Cranial Nerves: No cranial nerve deficit. Sensory: Sensation is intact. (more content not included)... Normal [facility] HCG, BLOOD, QUANTITATIVEon 0 12-24-2024 HCG, QUANTITATIVE 68 mIU/mL High 0-5 [facility] Comment on above: Order Comment: Males and non females: <5 mIU/mLFemales during :3-4 weeks 9-130 mIU/mL4-5 weeks 75-2600 mIU/mL5-6 weeks 850-20,800 mIU/mL6-7 weeks 4000-100,200 mIU/mL7-12 weeks 11,500-289,000 mIU/mL12-16 weeks 18,300-137,000 mIU/mL16-29 weeks 1,400-53,000 mIU/mL29-41 weeks 940-60,000 mIU/mL Performed By: #### 4 [id number] ####[facility] [address] [address] Jesus Camilo M.D. [id number] HCG, TOTAL, QNon 12-24-2024 HCG Qn 55 m[IU]/mL High [facility] Comment on above: Order Comment: FASTI NG:UNKNOWN FASTING: UNKNOWN Result Comment: Refe rence Range Non or premenopausal <5 Postmenopausal <10 Values from different assay methods may vary. The use of this assay to monitor or to diagnose patients with cancer or any condition unrelated to has not been cleared or approved by the FDA or the campus chaplain of the assay. Performed By: #### 8 396 #### [facility] [address], [address] [place], [place] [id number] [employer]: Ben Powell MD PROGESTERONEon 12-24-2024 PROGESTERONE 28.4 ng/mL Normal [facility] Comment on above: Order Comment: FASTI NG:NO FASTING: NO Result Comment: Refe rence Ranges Female Follicular Phase < 1.0 Luteal Phase 2.6-21.5 Post menopausal < 0.5 1st Trimester 4.1-34.0 2nd Trimester 24.0-76.0 3rd Trimester 52.0-302.0 Performed By: #### 7 45 #### [facility] [address], [address] [place] [id number] [employer]: Ben Powell MD URINALYSISon 12-24-2024 BACTERIA, URINE None Seen Normal None Seen [facility] Comment on above: Order Comment: Micro scopic examination is performed on all urinalysis samples and only positive findings are reported. The test for blood on the chemical analytic portion of urinalysis may also be positive due to hemoglobinuria and myoglobinuria and if red blood cells are present they are quantified by microscopic examination. Performed By: #### 4 [id number] #### LAB [address] [address] Jesus Camilo M.D. [id number] BILIRUBIN, URINE Negative Normal Negative [facility] Comment on above: Order Comment: Micro scopic examination is performed on all urinalysis samples and only positive findings are reported. The test for blood on the chemical analytic portion of urinalysis may also be positive due to hemoglobinuria and myoglobinuria and if red blood cells are present they are quantified by microscopic examination. Performed By: #### 4 [id number] #### LAB [address] [address] Jesus Camilo M.D. [id number] BLOOD, URINE Negative Normal Negative [facility] Comment on above: Order Comment: Micro scopic examination is performed on all urinalysis samples and only positive findings are reported. The test for blood on the chemical analytic portion of urinalysis may also be positive due to hemoglobinuria and myoglobinuria and if red blood cells are present they are quantified by microscopic examination. Performed By: #### 4 [id number] #### LAB [address] [address] Jesus Camilo M.D. [id number] Clarity (U) Clear Normal Clear [facility] Comment on above: Order Comment: Micro scopic examination is performed on all urinalysis samples and only positive findings are reported. The test for blood on the chemical analytic portion of urinalysis may also be positive due to hemoglobinuria and myoglobinuria and if red blood cells are present they are quantified by microscopic examination. Performed By: #### 4 [id number] #### LAB [address] [address] Jesus Camilo M.D. [id number] Color (U) Yellow Normal Colorless, Yellow [facility] Comment on above: Order Comment: Micro scopic examination is performed on all urinalysis samples and only positive findings are reported. The test for blood on the chemical analytic portion of urinalysis may also be positive due to hemoglobinuria and myoglobinuria and if red blood cells are present they are quantified by microscopic examination. Performed By: #### 4 [id number] #### LAB [address] [address] Jesus Camilo M.D. [id number] Glucose Ql (U) Negative Normal Negative [facility] Comment on above: Order Comment: Micro scopic examination is performed on all urinalysis samples and only positive findings are reported. The test for blood on the chemical analytic portion of urinalysis may also be positive due to hemoglobinuria and myoglobinuria and if red blood cells are present they are quantified by microscopic examination. Performed By: #### 4 [id number] #### LAB [address] [address] Jesus Camilo M.D. [id number] Hyaline casts LM Ql (Urine sed) 0-2 Normal 0-2 [facility] Comment on above: Order Comment: Micro scopic examination is performed on all urinalysis samples and only positive findings are reported. The test for blood on the chemical analytic portion of urinalysis may also be positive due to hemoglobinuria and myoglobinuria and if red blood cells are present they are quantified by microscopic examination. Performed By: #### 4 [id number] #### LAB [address] [address] Jesus Camilo M.D. [id number] Ketones Ql (U) Negative Normal Negative [facility] Comment on above: Order Comment: Micro scopic examination is performed on all urinalysis samples and only positive findings are reported. The test for blood on the chemical analytic portion of urinalysis may also be positive due to hemoglobinuria and myoglobinuria and if red blood cells are present they are quantified by microscopic examination. Performed By: #### 4 [id number] #### LAB [address] [address] Jesus Camilo M.D. [id number] Leukocyte esterase Test strip Ql (U) Negative Normal Negative [facility] Comment on above: Order Comment: Micro scopic examination is performed on all urinalysis samples and only positive findings are reported. The test for blood on the chemical analytic portion of urinalysis may also be positive due to hemoglobinuria and myoglobinuria and if red blood cells are present they are quantified by microscopic examination. Performed By: #### 4 [id number] #### LAB [address] [place], [place] [address] Jesus Camilo M.D. [id number] MUCUS, URINE Rare Normal None Seen, Rare [facility] Comment on above: Order Comment: Micro scopic examination is performed on all urinalysis samples and only positive findings are reported. The test for blood on the chemical analytic portion of urinalysis may also be positive due to hemoglobinuria and myoglobinuria and if red blood cells are present they are quantified by microscopic examination. Performed By: #### 4 6625 #### LAB [address] [id number] Jesus Camilo M.D. [id number] NITRITE, URINE Negative Normal Negative [facility] Comment on above: Order Comment: Micro scopic examination is performed on all urinalysis samples and only positive findings are reported. The test for blood on the chemical analytic portion of urinalysis may also be positive due to hemoglobinuria and myoglobinuria and if red blood cells are present they are quantified by microscopic examination. Performed By: #### 4 6625 #### LAB [address] [id number] Jesus Camilo M.D. [id number] pH (U) 6.0 [pH] Normal 5.0-7.0 [facility] Comment on above: Order Comment: Micro scopic examination is performed on all urinalysis samples and only positive findings are reported. The test for blood on the chemical analytic portion of urinalysis may also be positive due to hemoglobinuria and myoglobinuria and if red blood cells are present they are quantified by microscopic examination. Performed By: #### 4 6625 #### LAB [address] [place], [place] [address] Jesus Camilo M.D. [id number] PROTEIN, URINE Negative Normal Negative [facility] Comment on above: Order Comment: Micro scopic examination is performed on all urinalysis samples and only positive findings are reported. The test for blood on the chemical analytic portion of urinalysis may also be positive due to hemoglobinuria and myoglobinuria and if red blood cells are present they are quantified by microscopic examination. Performed By: #### 4 6625 #### LAB [address] [address] Jesus Camilo M.D. [id number] RBC LM.HPF (Urine sed) [#/Area] 1 /[HPF] Normal 0-3 [facility] Comment on above: Order Comment: Micro scopic examination is performed on all urinalysis samples and only positive findings are reported. The test for blood on the chemical analytic portion of urinalysis may also be positive due to hemoglobinuria and myoglobinuria and if red blood cells are present they are quantified by microscopic examination. Performed By: #### 4 6625 #### [facility] [address] [address] Jesus Camilo M.D. [id number] Specific gravity (U) [Rel density] 1.021 Normal 1.005-1.025 [facility] Comment on above: Order Comment: Micro scopic examination is performed on all urinalysis samples and only positive findings are reported. The test for blood on the chemical analytic portion of urinalysis may also be positive due to hemoglobinuria and myoglobinuria and if red blood cells are present they are quantified by microscopic examination. Performed By: #### 4 6625 #### [facility] [address] [address] Jesus Camilo M.D. [id number] SQUAMOUS EPITHELIAL 10 /hpf High 0-4 [facility] Comment on above: Order Comment: Micro scopic examination is performed on all urinalysis samples and only positive findings are reported. The test for blood on the chemical analytic portion of urinalysis may also be positive due to hemoglobinuria and myoglobinuria and if red blood cells are present they are quantified by microscopic examination. Performed By: #### 4 [id number] #### LAB [address] [address] Jesus Camilo M.D. [id number] UROBILINOGEN, URINE <2.0 Normal <2.0 [facility] Comment on above: Order Comment: Micro scopic examination is performed on all urinalysis samples and only positive findings are reported. The test for blood on the chemical analytic portion of urinalysis may also be positive due to hemoglobinuria and myoglobinuria and if red blood cells are present they are quantified by microscopic examination. Performed By: #### 4 [id number] #### LAB [address] [place], [place] [address] Jesus Camilo M.D. [id number] WBC LM.HPF (Urine sed) [#/Area] 1 /[HPF] Normal 0-5 [facility] Comment on above: Order Comment: Micro scopic examination is performed on all urinalysis samples and only positive findings are reported. The test for blood on the chemical analytic portion of urinalysis may also be positive due to hemoglobinuria and myoglobinuria and if red blood cells are present they are quantified by microscopic examination. Performed By: #### 4 [id number] #### LAB [address] [place], [place] [address] Jesus Camilo M.D. [id number] US OB TRANSVAGINAL WITH COLO R FLOW ANY TRIMESTERon 12-24-2024 US OB TRANSVAGINAL WITH COLOR FLOW ANY TRIMESTER EXAMINATION: US OB TRANSVAGINAL WITH COLOR FLOW ANY TRIMESTER HISTORY: ORDERING SYSTEM PROVIDED HISTORY: pelvic pain, TECHNOLOGIST PROVIDED HISTORY: Illness/Other Reason for exam: pelvic pain Cancer History: unknown Surgery, RadiationHistory: unknown Encounter Type: Initial Additional signs and symptoms: no ORDERING SYSTEM PROVIDED DIAGNOSIS CODES: COMPARISON: None for this . TECHNIQUE: Transvaginal sonographic images of the pelvis were obtained. FINDINGS: Uterus size: 8.8 x 3.9 x 5.3 cm Uterus: Normal size and morphology. Normal myometrium. Cervical nabothian cyst. Endometrial stripe thickness: 10 mm Endometrium: Normal thickness. No intrauterine gestational sac identified. Right Ovary Size: 4.3 x 3.2 x 2.5 cm Right Ovary: Corpus luteum cyst in the right ovary measuring 2.1 x 1.8 x 2.9 cm. Right Ovarian Flow: Arterial and venous flow is present on spectral Doppler. Right Adnexa: No abnormality. Left Ovary Size: 3.3 x 2.6 x 2.7 cm Left Ovary: Normal. Left Ovarian Flow: Arterial and venous flow is present on spectral Doppler. Left Adnexa: No abnormality. Free Fluid: Trace. IMPRESSION: No intrauterine identified possibly due to early gestation. Consider follow-up pelvic ultrasound and/or serial beta HCGs as clinically warranted. Workstation ID: [id number] Dictated by: MIGDALIA PENA on [facility] Dec 24, 2024 8:05:34 AM EDT Transcribed by: MIGDALIA PENA on [facility] Dec 24, 2024 8:05:34 AM EDT Finalized by: MIGDALIA PENA on [facility] Dec 24, 2024 8:05:34 AM EDT Normal [facility] Comment on above: Order Comment: Injur y/Trauma or Illness?:Illness/Other How long have you had these symptoms (acute/chronic)?:Acute Reason for exam?:pelvic pain History of cancer?:unknown Surgeries, chemotherapy, or radiation?:unknown Type of Exam?:Initial Additional signs and symptoms?:no HCG, TOTAL, QNon 12-22-2024 HCG Qn 32 m[IU]/mL High [facility] Comment on above: Result Comment: Refe rence Range Non or premenopausal <5 Postmenopausal <10 Values from different assay methods may vary. The use of this assay to monitor or to diagnose patients with cancer or any condition unrelated to has not been cleared or approved by the FDA or the campus chaplain of the assay. Performed By: #### 8 588, 583 #### [facility] [address] [employer]: Ben Powell MD PROGESTERONEon 12-22-2024 PROGESTERONE 53.7 ng/mL Normal [facility] Comment on above: Result Comment: Refe rence Ranges Female Follicular Phase < 1.0 Luteal Phase 2.6-21.5 Post menopausal < 0.5 1st Trimester 4.1-34.0 2nd Trimester 24.0-76.0 3rd Trimester 52.0-302.0 Performed By: #### 8 329, 044 #### [facility] [address], [address] [place], [place] [id number] [employer]: Ben Powell MD CBC (H/H, RBC, INDICES, WBC, PLT)on 10-30-2024 Erythrocyte distribution width (RBC) [Ratio] 14.4 % Normal 11.0-15.0 [facility] Comment on above: Performed By: #### 5 , 1759 #### [facility] of [address], [address] [place] [address] [employer]: Ben Powell MD Hematocrit (Bld) [Volume fraction] 37.8 % Normal 35.0-45.0 [facility] Comment on above: Performed By: #### 5 , 175 #### [facility] of [address], [address] [place] [address] [employer]: Ben Powell MD Hemoglobin (Bld) [Mass/Vol] 12.2 g/dL Normal 11.7-15.5 [facility] Comment on above: Performed By: #### 5 , 175 #### [facility] of [address], [address] [place] [address] [employer]: Ben Powell MD MCH (RBC) [Entitic mass] 27.7 pg Normal 27.0-33.0 [facility] Comment on above: Performed By: #### 5 , 175 #### [facility] of [address], [address] [place] [address] [employer]: Ben Powell MD MCHC (RBC) [Mass/Vol] 32.3 g/dL Normal 32.0-36.0 [facility] Comment on above: Result Comment: For adults, a slight decrease in the calculated MCHC value (in the range of 30 to 32 g/dL) is most likely not clinically significant; however, it should be interpreted with caution in correlation with other red cell parameters and the patient's clinical condition. Performed By: #### 5 , 175 #### [facility] of [address], [address] [place] [address] [employer]: Ben Powell MD MCV (RBC) [Entitic vol] 85.9 fL Normal 80.0-100.0 [facility] Comment on above: Performed By: #### 5 , 175 #### [facility] [address], [address] [place] [address] [employer]: Ben Powell MD Platelet mean volume (Bld) [Entitic vol] 9.0 fL Normal 7.5-12.5 [facility] Comment on above: Performed By: #### 5 616, 1759 #### [facility] of [address], [address] [place] [address] [employer]: Ben Powell MD Platelets (Bld) [#/Vol] 439 10*3/uL High 140-400 [facility] Comment on above: Performed By: #### 5 616, 1759 #### [facility] of [address], [address] [place] [address] [employer]: Ben Powell MD RBC (Bld) [#/Vol] 4.40 10*6/uL Normal 3.80-5.10 [facility] Comment on above: Performed By: #### 5 , 175 #### [facility] of [address], [address] [place] [address] [employer]: Ben Powell MD WBC (Bld) [#/Vol] 7.3 10*3/uL Normal 3.8-10.8 [facility] Comment on above: Performed By: #### 5 106, 175 #### [facility] of [address], [address] [place] [address] [employer]: Ben Powell MD IRON, TIBC AND FERRITIN [facility] 10-30-2024 % SATURATION 11 % (calc) Low 16-45 [facility] Comment on above: Order Comment: FASTI NG:UNKNOWN FASTING: UNKNOWN Performed By: #### 5 47, 175 #### [facility] of [address], [address] [place] [address] [employer]: Ben Powell MD Ferritin [Mass/Vol] 8 ng/mL Low 16-154 [facility] Comment on above: Order Comment: FASTI NG:UNKNOWN FASTING: UNKNOWN Performed By: #### 5 62, 175 #### [facility] of [address], [address] [place] [address] [employer]: Ben Powell MD IRON BINDING CAPACITY 443 mcg/dL (calc) Normal 250-450 [facility] Comment on above: Order Comment: FASTI NG:UNKNOWN FASTING: UNKNOWN Performed By: #### 5 046, 1759 #### [facility] [address], [address] [place] [address] [employer]: Ben Powell MD IRON, TOTAL 47 mcg/dL Normal 40-190 [facility] Comment on above: Order Comment: FASTI NG:UNKNOWN FASTING: UNKNOWN Performed By: #### 5 716, 1759 #### [facility] [address], [address] [place] [address] [employer]: Ben Powell MD ABORH VERIFICATIONon 025 ABO and Rh group Nom (Bld) Blood group A Rh(D) positive [facility] ABO and Rh group Nom (Bld) ABO/Rh Verification [facility] Comment on above: Result Comment: Porsha ent's ABO/Rh is verified. CBC WITH AUTO DIFFERENTIALon 09-16-2024 AUTO NRBC 0.0 % [facility] Comment on above: Performed By: #### L [id number] #### [facility] [address] [place], [place] [address] Jesus Camilo M.D. [id number] AUTO NRBC ABS COUNT 0.00 K/mcL Normal 0.00-0.00 [facility] Comment on above: Performed By: #### L [id number] #### [facility] [address] [place], [place] [address] Jesus Camilo M.D. [id number] BASOPHILS ABSOLUTE COUNT 0.09 K/mcL Normal 0.00-0.30 [facility] Comment on above: Performed By: #### L [id number] #### [facility] [address] [place], [place] [address] Jesus Camilo M.D. [id number] Basophils/100 WBC (Bld) 0.8 % [facility] Comment on above: Performed By: #### L [id number] #### [facility] [address] [place], [place] [address] Jesus Camilo M.D. [id number] Eosinophils (Bld) [#/Vol] 0.15 10*3/uL Normal 0.00-0.50 [facility] Comment on above: Performed By: #### L [id number] #### LAB [address] [place] [address] Jesus Camilo M.D. [id number] Eosinophils/100 WBC (Bld) 1.3 % Normal [facility] Comment on above: Performed By: #### L [id number] #### LAB [address] [place] [address] Jesus Camilo M.D. [id number] Erythrocyte distribution width (RBC) [Ratio] 13.3 % Normal 11.6-14.8 [facility] Comment on above: Performed By: #### L [id number] #### LAB [address] [place] [address] Jesus Camilo M.D. [id number] Hematocrit (Bld) [Volume fraction] 37.0 % Normal 36.0-46.0 [facility] Comment on above: Performed By: #### L [id number] #### LAB [address] [place] [address] Jesus Camilo M.D. [id number] Hemoglobin (Bld) [Mass/Vol] 11.8 g/dL Low 12.0-16.0 [facility] Comment on above: Performed By: #### L [id number] #### LAB [address] [place] [address] Jesus Camilo M.D. [id number] IG ABSOLUTE 0.06 K/mcL Normal 0.00-0.30 [facility] Comment on above: Performed By: #### L [id number] #### LAB [address] [place] [address] Jesus Camilo M.D. [id number] IG PERCENT 0.50 % Normal [facility] Comment on above: Result Comment: The IG parameter is the percentage of metamyelocytes, myelocytes and promyelocytes. An immature granulocyte count (IG) of 1% or more suggests the possibility of infection, an IG count of 3% is very likely related to an infection. Performed By: #### L [id number] #### LAB [address] [place] [address] Jesus Camilo M.D. [id number] Lymphocytes (Bld) [#/Vol] 2.16 10*3/uL Normal 0.90-4.00 [facility] Comment on above: Performed By: #### L [id number] #### LAB [address] [place] [address] Jesus Camilo M.D. [id number] Lymphocytes/100 WBC (Bld) 19.0 % Normal [facility] Comment on above: Performed By: #### L [id number] #### LAB [address] [place] [address] Jesus Camilo M.D. [id number] MCH (RBC) [Entitic mass] 27.4 pg Normal 26.0-34.0 [facility] Comment on above: Performed By: #### L [id number] #### LAB [address] [place] [address] Jesus Camilo M.D. [id number] MCV (RBC) [Entitic vol] 85.8 fL Normal 80.0-100.0 [facility] Comment on above: Performed By: #### L [id number] #### LAB [address] [place] [address] Jesus Camilo M.D. [id number] MEAN CORPUSCULAR HEMOGLOBIN CONC 31.9 g/dL Normal 31.0-37.0 [facility] Comment on above: Performed By: #### L [id number] #### LAB [address] [place] [address] Jesus Camilo M.D. [id number] Monocytes (Bld) [#/Vol] 0.61 10*3/uL Normal 0.30-0.90 [facility] Comment on above: Performed By: #### L [id number] #### LAB [address] [place] [address] Jesus Camilo M.D. [id number] Monocytes/100 WBC (Bld) 5.4 % Normal [facility] Comment on above: Performed By: #### L [id number] #### LAB [address] [place] [address] Jesus Camilo M.D. [id number] NEUTROPHILS ABSOLUTE COUNT 8.30 K/mcL High 1.70-7.00 [facility] Comment on above: Performed By: #### L [id number] #### [facility] [address] [place] [address] Jesus Camilo M.D. [id number] Neutrophils/100 WBC (Bld) 73.0 % Normal [facility] Comment on above: Performed By: #### L [id number] #### LAB [address] [place] [address] Jesus Camilo M.D. [id number] Platelet mean volume (Bld) [Entitic vol] 8.5 fL Low 9.4-12.4 [facility] Comment on above: Performed By: #### L [id number] #### [facility] [address] [place] [address] Jesus Camilo M.D. [id number] Platelets (Bld) [#/Vol] 377 10*3/uL Normal 150-400 [facility] Comment on above: Performed By: #### L [id number] #### LAB [address] [place] [address] Jesus Camilo M.D. [id number] RBC (Bld) [#/Vol] 4.31 10*6/uL Normal 4.00-5.20 [facility] Comment on above: Performed By: #### L [id number] #### [facility] [address] [place] [address] Jesus Camilo M.D. [id number] WBC (Bld) [#/Vol] 11.37 10*3/uL High 4.50-11.00 [facility] Comment on above: Performed By: #### L [id number] #### [facility] [address] [place] [address] Jesus Camilo M.D. [id number] AUTO NRBC 0.0 % Normal [facility] Comment on above: Performed By: #### L [id number] #### LAB [address] [place] [address] Jesus Camilo M.D. [id number] AUTO NRBC ABS COUNT 0.00 K/mcL Normal 0.00-0.00 [facility] Comment on above: Performed By: #### L [id number] #### LAB [address] [place] [address] Jesus Camilo M.D. [id number] BASOPHILS ABSOLUTE COUNT 0.08 K/mcL Normal 0.00-0.30 [facility] Comment on above: Performed By: #### L [id number] #### LAB [address] [place] [address] Jesus Camilo M.D. [id number] Basophils/100 WBC (Bld) 0.7 % Normal [facility] Comment on above: Performed By: #### L [id number] #### LAB [address] [place] [address] Jesus Camilo M.D. [id number] Eosinophils (Bld) [#/Vol] 0.22 10*3/uL Normal 0.00-0.50 [facility] Comment on above: Performed By: #### L [id number] #### LAB [address] [place] [address] Jesus Camilo M.D. [id number] Eosinophils/100 WBC (Bld) 2.0 % Normal [facility] Comment on above: Performed By: #### L [id number] #### LAB [address] [place] [address] Jesus Camilo M.D. [id number] Erythrocyte distribution width (RBC) [Ratio] 13.5 % Normal 11.6-14.8 [facility] Comment on above: Performed By: #### L [id number] #### LAB [address] [place] [address] Jesus Camilo M.D. [id number] Hematocrit (Bld) [Volume fraction] 39.0 % Normal 36.0-46.0 [facility] Comment on above: Performed By: #### L [id number] #### LAB [address] [place] [address] Jesus Camilo M.D. [id number] Hemoglobin (Bld) [Mass/Vol] 12.3 g/dL Normal 12.0-16.0 [facility] Comment on above: Performed By: #### L [id number] #### LAB [address] [place] [address] Jesus Camilo M.D. [id number] IG ABSOLUTE 0.05 K/mcL Normal 0.00-0.30 [facility] Comment on above: Performed By: #### L [id number] #### LAB [address] [place] [address] Jesus Camilo M.D. [id number] IG PERCENT 0.50 % [facility] Comment on above: Result Comment: The IG parameter is the percentage of metamyelocytes, myelocytes and promyelocytes. An immature granulocyte count (IG) of 1% or more suggests the possibility of infection, an IG count of 3% is very likely related to an infection. Performed By: #### L [id number] #### LAB [address] [place] [address] Jesus Camilo M.D. [id number] Lymphocytes (Bld) [#/Vol] 2.35 10*3/uL Normal 0.90-4.00 [facility] Comment on above: Performed By: #### L [id number] #### LAB [address] [place] [address] Jesus Camilo M.D. [id number] Lymphocytes/100 WBC (Bld) 21.4 % [facility] Comment on above: Performed By: #### L [id number] #### LAB [address] [place] [address] Jesus Camilo M.D. [id number] MCH (RBC) [Entitic mass] 27.3 pg Normal 26.0-34.0 [facility] Comment on above: Performed By: #### L [id number] #### [facility] [address] [place] [address] Jesus Camilo M.D. [id number] MCV (RBC) [Entitic vol] 86.5 fL Normal 80.0-100.0 [facility] Comment on above: Performed By: #### L [id number] #### LAB [address] [place] [address] Jesus Camilo M.D. [id number] MEAN CORPUSCULAR HEMOGLOBIN CONC 31.5 g/dL Normal 31.0-37.0 [facility] Comment on above: Performed By: #### L [id number] #### [facility] [address] [place] [address] Jesus Camilo M.D. [id number] Monocytes (Bld) [#/Vol] 0.66 10*3/uL Normal 0.30-0.90 [facility] Comment on above: Performed By: #### L [id number] #### [facility] [address] [place] [address] Jseus Camilo M.D. [id number] Monocytes/100 WBC (Bld) 6.0 % Normal [facility] Comment on above: Performed By: #### L [id number] #### LAB [address] [place] [address] Jesus Camilo M.D. [id number] NEUTROPHILS ABSOLUTE COUNT 7.61 K/mcL High 1.70-7.00 [facility] Comment on above: Performed By: #### L [id number] #### [facility] [address] [place] [address] Jesus Camilo M.D. [id number] Neutrophils/100 WBC (Bld) 69.4 % Normal [facility] Comment on above: Performed By: #### L [id number] #### [facility] [address] [place] [address] Jesus Camilo M.D. [id number] Platelet mean volume (Bld) [Entitic vol] 8.5 fL Low 9.4-12.4 [facility] Comment on above: Performed By: #### L [id number] #### [facility] [address] [place] [address] Jesus Camilo M.D. [id number] Platelets (Bld) [#/Vol] 396 10*3/uL Normal 150-400 [facility] Comment on above: Performed By: #### L [id number] #### [facility] [address] [place] [address] Jesus Camilo M.D. [id number] RBC (Bld) [#/Vol] 4.51 10*6/uL Normal 4.00-5.20 [facility] Comment on above: Performed By: #### L [id number] #### [facility] [address] [place] [address] Jesus Camilo M.D. [id number] WBC (Bld) [#/Vol] 10.97 10*3/uL Normal 4.50-11.00 [facility] Comment on above: Performed By: #### L [id number] #### LAB [address] [place] [address] Jesus Camilo M.D. [id number] COMPREHENSIVE METABOLIC PANE Craig 09-16-2024 Albumin [Mass/Vol] 4.2 g/dL Normal 3.2-5.2 [facility] Comment on above: Order Comment: [facility] has implemented the eGFR calculation approach that does not have a coefficient for race that conforms to the NKF-ASN Task Force Recommendations. Performed By: #### 4 6126 ####[facility] [address] [place] [address] Jesus Camilo M.D. [id number] ALP [Catalytic activity/Vol] 58 U/L Normal 40-140 [facility] Comment on above: Order Comment: [facility] has implemented the eGFR calculation approach that does not have a coefficient for race that conforms to the NKF-ASN Task Force Recommendations. Performed By: #### 4 6126 ####[facility] [address] [place] [address] Jesus Camilo M.D. [id number] ALT [Catalytic activity/Vol] 16 U/L Normal 0-35 U/L [facility] Comment on above: Order Comment: [facility] has implemented the eGFR calculation approach that does not have a coefficient for race that conforms to the NKF-ASN Task Force Recommendations. Performed By: #### 4 6126 #### LAB [address] [place] [address] Jesus Camilo M.D. [id number] Anion gap [Moles/Vol] 17 mmol/L Normal 10-20 [facility] Comment on above: Order Comment: [facility] has implemented the eGFR calculation approach that does not have a coefficient for race that conforms to the NKF-ASN Task Force Recommendations. Performed By: #### 4 6126 #### LAB [address] [place] [address] Jesus Camilo M.D. [id number] AST [Catalytic activity/Vol] 16 U/L Normal 0-35 U/L [facility] Comment on above: Order Comment: [facility] has implemented the eGFR calculation approach that does not have a coefficient for race that conforms to the NKF-ASN Task Force Recommendations. Performed By: #### 4 6126 #### LAB [address] [place] [address] Jesus Camilo M.D. [id number] BILIRUBIN TOTAL < Normal 0.0-1.3 [facility] Comment on above: Order Comment: [facility] has implemented the eGFR calculation approach that does not have a coefficient for race that conforms to the NKF-ASN Task Force Recommendations. Performed By: #### 4 6126 #### LAB [address] [place] [address] Jesus Camilo M.D. [id number] Calcium [Mass/Vol] 9.4 mg/dL Normal 8.4-10.2 [facility] Comment on above: Order Comment: [facility] has implemented the eGFR calculation approach that does not have a coefficient for race that conforms to the NKF-ASN Task Force Recommendations. Performed By: #### 4 6126 #### LAB [address] [place] [address] Jesus Camilo M.D. [id number] Chloride [Moles/Vol] 104 mmol/L Normal 98-108 [facility] Comment on above: Order Comment: [facility] has implemented the eGFR calculation approach that does not have a coefficient for race that conforms to the NKF-ASN Task Force Recommendations. Performed By: #### 4 6126 #### LAB [address] [place] [address] Jeuss Camilo M.D. [id number] Creatinine [Mass/Vol] 0.78 mg/dL Normal 0.40-1.10 [facility] Comment on above: Order Comment: [facility] has implemented the eGFR calculation approach that does not have a coefficient for race that conforms to the NKF-ASN Task Force Recommendations. Performed By: #### 4 6126 #### LAB [address] [place] [address] Jesus Camilo M.D. [id number] EGFR 100 mL/min/1.73 m2 Normal >=60 [facility] Comment on above: Order Comment: [facility] has implemented the eGFR calculation approach that does not have a coefficient for race that conforms to the NKF-ASN Task Force Recommendations. Result Comment: Yissel mated GFR was calculated using the 2020 CKD-EPI creatinine equation. Performed By: #### 4 6126 #### LAB [address] [place] [address] Jesus Camilo M.D. [id number] Glucose [Mass/Vol] 104 mg/dL High 65-99 [facility] Comment on above: Order Comment: [facility] has implemented the eGFR calculation approach that does not have a coefficient for race that conforms to the NKF-ASN Task Force Recommendations. Performed By: #### 4 6126 #### LAB [address] [place] [address] Jesus Camilo M.D. [id number] HCO3 (Bld) [Moles/Vol] 20 mmol/L Low 21-32 [facility] Comment on above: Order Comment: [facility] has implemented the eGFR calculation approach that does not have a coefficient for race that conforms to the NKF-ASN Task Force Recommendations. Performed By: #### 4 6126 #### LAB [address] [place] [address] Jesus Camilo M.D. [id number] Potassium [Moles/Vol] 3.8 mmol/L Normal 3.5-5.1 [facility] Comment on above: Order Comment: [facility] has implemented the eGFR calculation approach that does not have a coefficient for race that conforms to the NKF-ASN Task Force Recommendations. Performed By: #### 4 6126 #### LAB [address] [place] [address] Jesus Camilo M.D. [id number] Protein [Mass/Vol] 7.1 g/dL Normal 6.0-8.0 [facility] Comment on above: Order Comment: [facility] has implemented the eGFR calculation approach that does not have a coefficient for race that conforms to the NKF-ASN Task Force Recommendations. Performed By: #### 4 6126 #### LAB [address] [place] [address] Jesus Camilo M.D. [id number] Sodium [Moles/Vol] 137 mmol/L Normal 135-145 [facility] Comment on above: Order Comment: [facility] has implemented the eGFR calculation approach that does not have a coefficient for race that conforms to the NKF-ASN Task Force Recommendations. Performed By: #### 4 6126 ####[facility] [address] [place] [address] Jesus Camilo M.D. [id number] Urea nitrogen [Mass/Vol] 16 mg/dL Normal 8-25 [facility] Comment on above: Order Comment: [facility] has implemented the eGFR calculation approach that does not have a coefficient for race that conforms to the NKF-ASN Task Force Recommendations. Performed By: #### 4 6126 #### LAB [address] [place], [place] [address] Jesus Camilo M.D. [id number] Urea nitrogen/Creatinine [Mass ratio] 20.5 mg/mg High 10.0-20.0 [facility] Comment on above: Order Comment: [facility] has implemented the eGFR calculation approach that does not have a coefficient for race that conforms to the NKF-ASN Task Force Recommendations. Performed By: #### 4 6126 #### LAB [address] [place], [place] [address] Jesus Camilo M.D. [id number] COVID-19/INFLUENZA A,B MOLEC ULARon 09-16-2024 SARS-CoV-2 (COVID-19) Ab IA Ql SARS-COV-2 (AMINAH) Not Detected INFLUENZA A (AMINAH) Not Detected INFLUENZA B (AMINAH) Not Detected Normal Not Detected [facility] Comment on above: Performed By: #### L [id number] #### LAB [address] [place], [place] [address] Jesus Camilo M.D. [id number] ED Prov Noteon 09-16-2024 ED Prov Note [facility] ED Attending Note: NAME: Alma Ulloa 39 y.o. CSN: [id number] PCP: Odalys Raymond DO History: Chief Complaint: Vaginal Bleeding HPI: The history was obtained from the patient. Alma is a 39 y.o. female who presents with a chief complaint of Vaginal Bleeding. The patient is a pleasant 39-year-old female, 1 para 0, LMP 07/20/2024, history of diabetes, who presents from home with cramping and vaginal bleeding. She had a small amount of spotting yesterday that resolved but this morning had worsened bleeding with cramping. She has also had mild cold symptoms. PMHx: Past Medical History: Diagnosis Date Diabetes mellitus (HCC) 2020 Type 2, after having covid, well controlled with recent A1C of 5.3 on 06/17 Migraine 2011 Imitrex 100mg as needed Polycystic ovary syndrome 2013 STD (sexually transmitted disease) Urogenital trichomoniasis 2020 Treated with Flagyl 2000mg one chose PMSx: Past Surgical History: Procedure Laterality Date CHOLECYSTECTOMY 06/2021 [facility] FAM. Hx: Family History Problem Relation Age of Onset Hypertension Mother Hypertension Father Stroke Father Breast cancer Paternal Aunt Breast cancer Paternal Aunt Breast cancer Paternal Grandmother Diabetes Paternal Grandmother SOC. Hx: Social History [1] MEDs: Previous Medications Medication Sig busPIRone (BUSPAR) 15 MG tablet Take 1 (one) tablet (15 mg total) by mouth 2 (two) times a day . colestipoL (COLESTID) 1 gram tablet Take 1 (one) tablet (1 g total) by mouth 2 (two) times a day . cyanocobalamin (B-12) 1,000 mcg/mL injection Inject 1 mL (1,000 mcg total) into the shoulder, thigh, or buttocks every 30 (thirty) days . dicyclomine (BENTYL) 20 mg tablet Take 1 (one) tablet (20 mg total) by mouth 3 (three) times a day as needed . escitalopram oxalate (LEXAPRO) 20 MG tablet Take 1 (one) tablet (20 mg total) by mouth daily . metFORMIN (GLUCOPHAGE-XR) 500 MG 24 hr tablet Take 1 (one) tablet (500 mg total) by mouth daily . modafiniL (PROVIGIL) 100 MG tablet Take 1 (one) tablet (100 mg total) by mouth daily Thursday through Thursday only per patient . nebivoloL (BYSTOLIC) 5 MG tablet Take 1 (one) tablet (5 mg total) by mouth daily Patient states she only takes one tablet daily. . Ozempic 2 mg/dose (8 mg/3 mL) Pen Inject 0.75 mL (2 mg total) under the skin once a week . SUMAtriptan (IMITREX) 100 MG tablet Take 1 (one) tablet (100 mg total) by mouth every 2 (two) hours as needed . ALL: Allergies[2] ROS: Positives and pertinent negatives as per HPI. All other systems were reviewed and are negative. Physical Exam: Patient Vitals for the past 24 hrs: BP Temp Temp src Pulse Resp SpO2 Height Weight 09/16/24 1033 -- -- -- -- 17 -- -- -- 09/16/24 1030 (!) 120/58 -- -- 82 18 98 % -- -- 09/16/24 0930 130/69 -- -- 83 18 97 % -- -- 09/16/24 0820 -- -- -- -- 18 -- -- -- 09/16/24 0726 -- -- -- -- -- -- 5' 2 111.1 kg (245 lb) 09/16/24 0722 (!) 142/88 97.7 degrees F (36.5 degrees C) Oral 82 16 99 % -- -- Physical Exam Vitals and nursing note reviewed. Constitutional: Appearance: Normal appearance. HENT: Head: Normocephalic. Cardiovascular: Rate and Rhythm: Normal rate and regular rhythm. Musculoskeletal: General: Normal range of motion. Pulmonary: Effort: Pulmonary effort is normal. Breath sounds: Normal breath sounds. Abdominal: General: Abdomen is flat. Bowel sounds are normal. Palpations: Abdomen is soft. Comments: Mildly tender in the lower pelvic region but no rebound mass or guarding. Skin: General: Skin is warm and dry. Neurological: General: No focal deficit present. Mental Status: She is alert and oriented to person, place, and time. Psychiatric: Mood and Affect: Mood normal. Behavior: Behavior normal. Laboratory & Radiological Imaging (if done): Labs Reviewed COMPREHENSIVE METABOLIC PANEL - Abnormal; Notable for the following components: Result Value Bicarbonate 20 (*) Glucose 104 (*) BUN/Creatinine Ratio 20.5 (*) All other components within normal limits Narrative: [facility] has implemented the eGFR calculation approach that does not have a coefficient for race that conforms to the NKF-ASN Task Force Recommendations. HCG, BLOOD, QUANTITATIVE - Abnormal; Notable for the following components: hCG Quant 2,246 (*) All other components within normal limits Narrative: Males and non females: <5 mIU/mL Females during : 3-4 weeks 9-130 mIU/mL 4-5 weeks 75-2600 mIU/mL 5-6 weeks 850-20,800 mIU/mL 6-7 weeks 4000-100,200 mIU/mL 7-12 weeks 11,500-289,000 mIU/mL 12-16 weeks 18,300-137,000 mIU/mL 16-29 weeks 1,400-53,000 mIU/mL 29-41 weeks 940-60,000 mIU/mL URINALYSIS - Abnormal; Notable for the following components: Color, Urine Red (*) Clarity, Urine Cloudy (*) Protein, Urine 30 (*) Blood, Urine Large (*) Leukocyte (more content not included)... Normal [facility] HCG, BLOOD, QUANTITATIVEon 0 09-16-2024 HCG, QUANTITATIVE 2246 mIU/mL High 0-5 [facility] Comment on above: Order Comment: Males and non females: <5 mIU/mLFemales during :3-4 weeks 9-130 mIU/mL4-5 weeks 75-2600 mIU/mL5-6 weeks 850-20,800 mIU/mL6-7 weeks 4000-100,200 mIU/mL7-12 weeks 11,500-289,000 mIU/mL12-16 weeks 18,300-137,000 mIU/mL16-29 weeks 1,400-53,000 mIU/mL29-41 weeks 940-60,000 mIU/mL Performed By: #### 4 [id number] ####[place] [address] Jesus Camilo M.D. [id number] TISSUE EXAMon 09-16-2024 TISSUE EXAM Surgical Pathology Report Case: [id number] Authorizing Provider: Letty Galvez MD Collected: 09/16/2024 01:06 PM Ordering Location: [facility] Received: 09/16/2024 01:34 PM Emergency Department Pathologist: Shiela Sanon MD Specimen: Fetus < 20 Weeks A. Products of Conception, removal: Fragments of decidua. Chorionic villi are not identified. at 1428 EDT Products of Conception A. The specimen is received fresh, designated products of conception, and consists of spongy and smooth pink-davila tissue measuring 2.5 x 1.5 x 0.5 cm in aggregate. No chorionic villi are identified. No parts are identified. Totally submitted in 3 cassette(s). JK Gross examination performed at: [facility] - [address] [place] [address] Microscopic examination is performed. Normal [facility] Comment on above: Performed By: #### 4 [id number] #### LAB [address] [id number] Jesus Camilo M.D. [id number] TYPE AND SCREENon 09-16-2024 TYPE AND SCREEN ABORH: A Positive AB SCREEN: Negative EXPIRATION DATE: 09/19/2024 23:59 EST Normal [facility] URINALYSISon 09-16-2024 BACTERIA, URINE None Seen Normal None Seen [facility] Comment on above: Order Comment: Micro scopic examination is performed on all urinalysis samples and only positive findings are reported. The test for blood on the chemical analytic portion of urinalysis may also be positive due to hemoglobinuria and myoglobinuria and if red blood cells are present they are quantified by microscopic examination. Performed By: #### 4 [id number] #### LAB [address] [id number] Jesus Camilo M.D. [id number] BILIRUBIN, URINE Negative Normal Negative [facility] Comment on above: Order Comment: Micro scopic examination is performed on all urinalysis samples and only positive findings are reported. The test for blood on the chemical analytic portion of urinalysis may also be positive due to hemoglobinuria and myoglobinuria and if red blood cells are present they are quantified by microscopic examination. Performed By: #### 4 6625 #### LAB [address] [id number] Jesus Camilo M.D. [id number] BLOOD, URINE Large Abnormal Negative [facility] Comment on above: Order Comment: Micro scopic examination is performed on all urinalysis samples and only positive findings are reported. The test for blood on the chemical analytic portion of urinalysis may also be positive due to hemoglobinuria and myoglobinuria and if red blood cells are present they are quantified by microscopic examination. Performed By: #### 4 6625 #### LAB [address] [id number] Jesus Camilo M.D. [id number] Clarity (U) Cloudy Abnormal Clear [facility] Comment on above: Order Comment: Micro scopic examination is performed on all urinalysis samples and only positive findings are reported. The test for blood on the chemical analytic portion of urinalysis may also be positive due to hemoglobinuria and myoglobinuria and if red blood cells are present they are quantified by microscopic examination. Performed By: #### 4 6625 #### LAB [address] [address] Jesus Camilo M.D. [id number] Color (U) Red Abnormal Colorless, Yellow [facility] Comment on above: Order Comment: Micro scopic examination is performed on all urinalysis samples and only positive findings are reported. The test for blood on the chemical analytic portion of urinalysis may also be positive due to hemoglobinuria and myoglobinuria and if red blood cells are present they are quantified by microscopic examination. Performed By: #### 4 6625 #### LAB [address] [address] Jesus Camilo M.D. [id number] Glucose Ql (U) Negative Normal Negative [facility] Comment on above: Order Comment: Micro scopic examination is performed on all urinalysis samples and only positive findings are reported. The test for blood on the chemical analytic portion of urinalysis may also be positive due to hemoglobinuria and myoglobinuria and if red blood cells are present they are quantified by microscopic examination. Performed By: #### 4 [id number] #### LAB [address] [address] Jesus Camilo M.D. [id number] Ketones Ql (U) Negative Normal Negative [facility] Comment on above: Order Comment: Micro scopic examination is performed on all urinalysis samples and only positive findings are reported. The test for blood on the chemical analytic portion of urinalysis may also be positive due to hemoglobinuria and myoglobinuria and if red blood cells are present they are quantified by microscopic examination. Performed By: #### 4 6625 #### LAB [address] [address] Jesus Camilo M.D. [id number] Leukocyte esterase Test strip Ql (U) Small Abnormal Negative [facility] Comment on above: Order Comment: Micro scopic examination is performed on all urinalysis samples and only positive findings are reported. The test for blood on the chemical analytic portion of urinalysis may also be positive due to hemoglobinuria and myoglobinuria and if red blood cells are present they are quantified by microscopic examination. Performed By: #### 4 6625 #### LAB [address] [address] Jesus Camilo M.D. [id number] NITRITE, URINE Negative Normal Negative [facility] Comment on above: Order Comment: Micro scopic examination is performed on all urinalysis samples and only positive findings are reported. The test for blood on the chemical analytic portion of urinalysis may also be positive due to hemoglobinuria and myoglobinuria and if red blood cells are present they are quantified by microscopic examination. Performed By: #### 4 6625 #### LAB [address] [address] Jesus Camilo M.D. [id number] pH (U) 5.5 [pH] Normal 5.0-7.0 [facility] Comment on above: Order Comment: Micro scopic examination is performed on all urinalysis samples and only positive findings are reported. The test for blood on the chemical analytic portion of urinalysis may also be positive due to hemoglobinuria and myoglobinuria and if red blood cells are present they are quantified by microscopic examination. Performed By: #### 4 6625 #### LAB [address] [address] Jesus Camilo M.D. [id number] Protein (U) [Mass/Vol] 30 mg/dL Abnormal Negative [facility] Comment on above: Order Comment: Micro scopic examination is performed on all urinalysis samples and only positive findings are reported. The test for blood on the chemical analytic portion of urinalysis may also be positive due to hemoglobinuria and myoglobinuria and if red blood cells are present they are quantified by microscopic examination. Result Comment: Fals e positive results may occur in urines with large amounts of hemoglobin, pH greater than 8.0, contrast medium, or disinfectants including ammonium compounds. Performed By: #### 4 6625 #### LAB [address] [address] Jesus Camilo M.D. [id number] RBC, URINE > High 0-3 [facility] Comment on above: Order Comment: Micro scopic examination is performed on all urinalysis samples and only positive findings are reported. The test for blood on the chemical analytic portion of urinalysis may also be positive due to hemoglobinuria and myoglobinuria and if red blood cells are present they are quantified by microscopic examination. Performed By: #### 4 6625 #### LAB [address] [address] Jesus Camilo M.D. [id number] Specific gravity (U) [Rel density] 1.010 Normal 1.005-1.025 [facility] Comment on above: Order Comment: Micro scopic examination is performed on all urinalysis samples and only positive findings are reported. The test for blood on the chemical analytic portion of urinalysis may also be positive due to hemoglobinuria and myoglobinuria and if red blood cells are present they are quantified by microscopic examination. Performed By: #### 4 6625 #### LAB [address] [place] [address] Jesus Camilo M.D. [id number] UROBILINOGEN, URINE <2.0 Normal <2.0 [facility] Comment on above: Order Comment: Micro scopic examination is performed on all urinalysis samples and only positive findings are reported. The test for blood on the chemical analytic portion of urinalysis may also be positive due to hemoglobinuria and myoglobinuria and if red blood cells are present they are quantified by microscopic examination. Performed By: #### 4 6625 #### LAB [address] [place] [address] Jesus Camilo M.D. [id number] WBC LM.HPF (Urine sed) [#/Area] 20 /[HPF] High 0-5 [facility] Comment on above: Order Comment: Micro scopic examination is performed on all urinalysis samples and only positive findings are reported. The test for blood on the chemical analytic portion of urinalysis may also be positive due to hemoglobinuria and myoglobinuria and if red blood cells are present they are quantified by microscopic examination. Performed By: #### 4 6625 #### LAB [address] [place], [place] [id number] Jesus Camilo M.D. [id number] OB TRANSVAGINALon 025 US OB TRANSVAGINAL EXAMINATION: US OB TRANSVAGINAL HISTORY: ORDERING SYSTEM PROVIDED HISTORY: 8 weeks by dates, cramping and bleeding, TECHNOLOGIST PROVIDED HISTORY: Illness/Other Reason for exam: abd cramping and heavy bleeding; 8 weeks Cancer History: unknown Surgery, RadiationHistory: unknown Encounter Type: Initial Additional signs and symptoms: none ORDERING SYSTEM PROVIDED DIAGNOSIS CODES: COMPARISON: None TECHNIQUE: Transabdominal and transvaginal ultrasound utilizing B-mode, M-mode, color Doppler and spectral analysis. FINDINGS: Uterus measures 10.1 x 4.5 x 5.5 cm. Endometrial stripe measures 1.7 cm, heterogenous. The uterus is anteverted. No gestational sac or intrauterine identified. There is hyperemia of the endometrial stripe. Right ovary measures 4.0 x 2.6 x 3.1 cm. Left ovary measures 3.2 x 2.3 x 2.5 cm. No adnexal mass. No sign of ectopic . No free fluid in the pelvis. IMPRESSION: 1. No evidence of intrauterine gestation or ectopic . 2. Heterogenous appearance of the endometrial stripe with blood flow present. Findings could be seen with retained products in the appropriate setting. Please correlate with beta HCG levels and short-term follow-up. 3. Ovaries are negative. Workstation ID: [id number] Dictated by: LOLA REINOSO on ThuSep 16, 2024 7:54:33 AM EDT Transcribed by: LOLA REINOSO on ThuSep 16, 2024 7:54:33 AM EDT Finalized by: LOLA REINOSO on ThuSep 16, 2024 7:54:33 AM EDT [facility] Comment on above: Order Comment: Injur y/Trauma or Illness?:Illness/Other How long have you had these symptoms (acute/chronic)?:Acute Reason for exam?:abd cramping and heavy bleeding; 8 weeks History of cancer?:unknown Surgeries, chemotherapy, or radiation?:unknown Type of Exam?:Initial Additional signs and symptoms?:none HCG, TOTAL, QNon 09-08-2024 HCG Qn 3581 m[IU]/mL [facility] Comment on above: Result Comment: Veri fied by repeat analysis. Reference Range Non or premenopausal <5 Postmenopausal <10 Values from different assay methods may vary. The use of this assay to monitor or to diagnose patients with cancer or any condition unrelated to has not been cleared or approved by the FDA or the campus chaplain of the assay. Performed By: #### 8 [id number] #### [facility] [id number] [facility], [address] [place] [address] Curator [employer]: Ben Powell MD MM SCREENING KENROY BILATERALo n 03-31-2024 MM SCREENING KENROY BILATERAL EXAMINATION: BILATERAL DIGITAL SCREENING MAMMOGRAM WITH TOMOSYNTHESIS INDICATION: Annual screening exam. COMPARISON: 2021 TECHNIQUE: Standard mammographic views, 2D and 3D. Computer-aided detection was utilized in the interpretation of this exam. FINDINGS: There are scattered areas of fibroglandular density. Stable scattered asymmetries bilaterally. No suspicious masses, calcifications, or other findings. No significant interval change. IMPRESSION: No mammographic evidence of malignancy. BIRADS: BIRADS - CATEGORY 2 Benign, no evidence of malignancy. Normal interval follow-up is recommended in 12 months. OVERALL ASSESSMENT - BENIGN A letter of notification will be sent to the patient regarding the results. [facility], along with the National Comprehensive Cancer Network and the [employer] recommend annual screening mammograms for women age 40 and older. Workstation ID: [id number] Dictated by: ZHAO MARSH on ThuApr 01, 2024 2:38:54 PM EST Transcribed by: ZHAO MARSH on ThuApr 01, 2024 2:38:54 PM EST Finalized by: ZHAO MARSH on ThuApr 01, 2024 2:38:54 PM EST Normal [facility] CHLAMYDIA/GONORRHOEAE AMPLIF IED RNAon 01-19-2024 CHLAMYDIA/GONORRHOEA E AMPLIFIED RNA CHLAMYDIA TRACHOMATIS AMPLIFIED RNA NEGATIVE NEISSERIA GONORRHOEAE AMPLIFIED RNA NEGATIVE Normal Negative [facility] Comment on above: Performed By: #### L [id number] #### [facility] [address] Wes Sargent M.D. [id number] THINPREP PAP SMEARon 024 THINPREP PAP SMEAR Gynecologic Cytology Report Case: [id number] Authorizing Provider: Claudy Cortez, Collected: 01/19/2024 03:42 PM Ordering Location: [facility] Received: 01/26/2024 08:09 AM Obstetrics and Gynecology First Screen: Lorena Nunn TECHNOLOGIST Specimen: THINPREP PAP SMEAR, Cervix / Endocervix Satisfactory for evaluation; endocervical/transformat ion zone component present Negative for intraepithelial lesion or malignancy The Pap smear is a screening test for the detection of cervical cancer and its precursor lesions. False positive and false negative results can occur. The test should be performed at regular intervals, and positive results should be confirmed before definitive therapy. Additional testing methods may be helpful in detecting abnormalities or in clinical management. The specimen has been analyzed by the ThinPrep imaging system, an automated imaging and review system which assists the laboratory in evaluating cells on ThinPrep tests. Following automated imaging selected carroll from every slide are reviewed by a nurse's aides teacher. Specimen processing and Primary Screening performed at: [place] [address] HPV 16 : Negative HPV 18 : Negative HPV, Other HR Types : Negative Assay performed using Paola Vania 4800 system utilizing Real-Time PCR to amplify target HPV DNA. This system specifically identifies HPV16 and HPV18 while concurrently detecting the other twelve high risk types (31,33,35,39,45,51,52,56 ,58,59,66,68). These HPV results have been electronically added to this report as an aid for patient management. HPV testing performed at: [place] [id number] 12/27/[address] [facility] Comment on above: Performed By: #### 4 [id number] #### [facility] [address] [place] [address] Wes Sargent M.D. [id number] TRICHOMONAS VAGINALIS AMPLIF IED RNAon 01-19-2024 TRICHOMONAS VAGINALIS AMPLIFIED RNA Negative Normal Negative [facility] Comment on above: Performed By: #### L [id number] #### [address] [place], [place] [address] Wes Sargent M.D. [id number] Blood Glucose , Office ([phone])Ordered By: Adalid Garrison on 10-15-2022 Glucose Glucometer (BldC) [Moles/Vol] 93 1 Normal [facility]; [facility] Work Phone: CALCIFIDIOL ([id number]) VIT D 25 Ordered By: Sales Agent Insurance on 10-15-2022 25-hydroxyvitamin D [Mass/Vol] 68.7 ng/mL Normal 30.0-100.0 [facility]; [facility] Work Phone: Comment on above: Vitamin D deficiency has been defined by the [place] [employer] and an Endocrine Society practice guideline as alevel of serum 25-OH vitamin D less than 20 ng/mL (1,2).The Endocrine Society went on to further define vitamin Dinsufficiency as a level between 21 and 29 ng/mL (2).1. IOM ([place] [employer]). 2010. Dietary reference intakes for calcium and D. [place]: The National Academies Press.2. Henok MF, Sara [place], Jessica PHILLIP, et al. Evaluation, treatment, and prevention of vitamin D deficiency: an Endocrine Society clinical practice guideline. JCEM. 2010; 96(7):1911-30. PATIENT WAS FASTINGP ERFORMED BY: [facility] [id number] CBC W/AUTO DIFF WBC (81202)O rdered By: Sales Agent Insurance on 10-15-2022 Basophils (Bld) [#/Vol] 0.1 10*3/uL Normal 0.0-0.2 [facility]; [facility] Work Phone: Comment on above: PATIENT WAS FASTINGP ERFORMED BY: [facility] [id number] Basophils/100 WBC (Bld) 1 % Normal [facility]; [facility] Work Phone: Comment on above: PATIENT WAS FASTINGP ERFORMED BY: [facility] [id number] Eosinophils (Bld) [#/Vol] 0.1 10*3/uL Normal 0.0-0.4 [facility]; [facility] Work Phone: Comment on above: PATIENT WAS FASTINGP ERFORMED BY: NIMCO Shantellrosalinda Ydqwnf0892 [address] RoadFormerly [facility] Hospitalin [place] [id number] Eosinophils/100 WBC (Bld) 1 % Normal [facility]; [facility] Work Phone: Comment on above: PATIENT WAS FASTINGP ERFORMED BY: NIMCO Labco Voftwi1637 [facility] [id number] Erythrocyte distribution width (RBC) [Ratio] 13.3 % Normal 11.7-15.4 [facility]; [facility] Work Phone: Comment on above: PATIENT WAS FASTINGP ERFORMED BY: NIMCO [facility] Th[address] [id number] Hematocrit (Bld) [Volume fraction] 42.6 % Normal 34.0-46.6 [facility]; [facility] Work Phone: Comment on above: PATIENT WAS FASTINGP ERFORMED BY: [facility]IM[facility] Rudslc4641 [facility] [id number] Hemoglobin (Bld) [Mass/Vol] 13.7 g/dL Normal 11.1-15.9 [facility]; [facility] Work Phone: Comment on above: PATIENT WAS FASTINGP ERFORMED BY: [id number] [facility] [id number] Immature granulocytes (Bld) [#/Vol] 0.0 10*3/uL Normal 0.0-0.1 [facility]; [facility] Work Phone: Comment on above: PATIENT WAS FASTINGP ERFORMED BY: [employer] [facility]co Fsrepn0212 [address] [facility] [id number] Immature granulocytes/100 WBC (Bld) 0 % Normal [facility]; [facility] Work Phone: Comment on above: PATIENT WAS FASTINGP ERFORMED BY: [facility] [facility] [place] [id number] Lymphocytes (Bld) [#/Vol] 2.3 10*3/uL Normal 0.7-3.1 [facility]; [facility] Work Phone: Comment on above: PATIENT WAS FASTINGP ERFORMED BY: [facility] Wdmqin3029 [facility] [place] [id number] Lymphocytes/100 WBC (Bld) 25 % Normal [facility]; [facility] Work Phone: Comment on above: PATIENT WAS FASTINGP ERFORMED BY: [facility] [facility] [place] [id number] MCH (RBC) [Entitic mass] 27.7 pg Normal 26.6-33.0 [facility]; [facility] Work Phone: Comment on above: PATIENT WAS FASTINGP ERFORMED BY: [address] [id number] [facility] [id number] MCHC (RBC) [Mass/Vol] 32.2 g/dL Normal 31.5-35.7 [facility]; [facility] Work Phone: Comment on above: PATIENT WAS FASTINGP ERFORMED BY: [facility] Kqojel5427 [facility] [place] [id number] MCV (RBC) [Entitic vol] 86 fL Normal 79-97 [facility]; [facility] Work Phone: Comment on above: PATIENT WAS FASTINGP ERFORMED BY: [facility] [facility] [place] [id number] Monocytes (Bld) [#/Vol] 0.4 10*3/uL Normal 0.1-0.9 [facility]; [facility] Work Phone: Comment on above: PATIENT WAS FASTINGP ERFORMED BY: [facility] Cjtfky[address] [facility] [place] [id number] Monocytes/100 WBC (Bld) 5 % Normal [facility]; [facility] Work Phone: Comment on above: PATIENT WAS FASTINGP ERFORMED BY: [facility] Vawemq0237 Meza RoadDublin [place] [id number] Neutrophils (Bld) [#/Vol] 6.1 10*3/uL Normal 1.4-7.0 [facility]; [facility] Work Phone: Comment on above: PATIENT WAS FASTINGP ERFORMED BY: [facility] Uqcoxm6750 Meza RoadDublin [place] [id number] Neutrophils/100 WBC (Bld) 68 % Normal [facility]; [facility] Work Phone: Comment on above: PATIENT WAS FASTINGP ERFORMED BY: [facility] Zapatr6771 Me[address] RoadDublin [place] [id number] Platelets (Bld) [#/Vol] 477 10*3/uL Abnormal 150-450 [facility]; [facility] Work Phone: Comment on above: PATIENT WAS FASTINGP ERFORMED BY: [facility] Vuxebd1704 Meza RoadDublin [place] [id number] RBC (Bld) [#/Vol] 4.95 10*6/uL Normal 3.77-5.28 Compr ehensive [facility]; [facility] Work Phone: Comment on above: PATIENT WAS FASTINGP ERFORMED BY: [facility] Fhfinh7830 Meza RoadDublin [place] [id number] WBC (Bld) [#/Vol] 9.0 10*3/uL Normal 3.4-10.8 Compre [facility]; [facility] Work Phone: Comment on above: PATIENT WAS FASTINGP ERFORMED BY: [facility] Vidwpt6242 [address] RoadDublin [place] [id number] HgA1C , Office ([id number])Ordere d By: Adalid Garrison on 10-15-2022 HbA1c (Bld) [Mass fraction] 5.5 % Normal 4.6 - 7.1 [facility]; [facility] Work Phone: LIPID PANEL ([id number])Ordered B y: Sales Agent Insurance on 10-15-2022 Cholesterol [Mass/Vol] 155 mg/dL Normal 100-199 [facility]; [facility] Work Phone: Comment on above: PATIENT WAS FASTINGP ERFORMED BY: NIMCO Labcoderic Zqqqet[address]87 [address] [facility] [place] [id number] Cholesterol in HDL [Mass/Vol] 38 mg/dL Abnormal [facility]; [facility] Work Phone: Comment on above: PATIENT WAS FASTINGP ERFORMED BY: NIMCO [facility] [address]ssp[address] [facility] [place] [id number] Triglyceride [Mass/Vol] 170 mg/dL Abnormal 0-149 [facility]; [facility] Work Phone: Comment on above: PATIENT WAS FASTINGP ERFORMED BY: NIMCO Labcoderic C[address]avo[address] [facility] [place] [id number] LIPID PANEL (57908) 29 mg/dL Normal 5-40 [facility]; [facility] Work Phone: Comment on above: PATIENT WAS FASTINGP ERFORMED BY: NIMCO Labcoderic Uenxtv7575 [address] [facility] [id number] LIPID PANEL (58632) 88 mg/dL Normal 0-99 [facility]; [facility] Work Phone: Comment on above: PATIENT WAS FASTINGP ERFORMED BY: NIMCO Labcoderic HayesTklcrf[address] [facility] [place] [id number] LIPID PANEL ([id number]) 2.3 {ratio} Normal 0.0-3.2 [facility]; [facility] Work Phone: Comment on above: LDL/HDL Ratio Men Wo men 1/2 Avg.Risk 1.0 1.5 Avg.Risk 3.6 3.2 2X Avg.Risk 6.2 5.0 3X Avg.Risk 8.0 6.1 PATIENT WAS FASTINGP ERFORMED BY: NIMCO [facility] Csetwp9485 [address] [facility] [place] [id number] METABOLIC PANEL, COMPREHENSI VE (51500)Ordered By: Sales Agent Insurance on 10-15-2022 Albumin [Mass/Vol] 4.5 g/dL Normal 3.8-4.8 [facility]; [facility] Work Phone: Comment on above: PATIENT WAS FASTINGP ERFORMED BY: CB [facility] Wzafnt1087 [address] RoadDublin [place] [id number] Albumin/Globulin [Mass ratio] 1.6 {ratio} Normal 1.2-2.2 [facility]; [facility] Work Phone: Comment on above: PATIENT WAS FASTINGP ERFORMED BY: CB [facility] Pkiodq3756 [address] RoadDublin [place] [id number] ALP [Catalytic activity/Vol] 85 U/L Normal 44-121 [facility]; [facility] Work Phone: Comment on above: PATIENT WAS FASTINGP ERFORMED BY: CB [facility] Ntpdon6435 [address]za RoadDublin [place] [id number] ALT [Catalytic activity/Vol] 26 U/L Normal 0-32 [facility]; [facility] Work Phone: Comment on above: PATIENT WAS FASTINGP ERFORMED BY: CB [facility] Fsbrjz6560 [address]za RoadDublin [place] [id number] AST [Catalytic activity/Vol] 15 U/L Normal 0-40 [facility]; [facility] Work Phone: Comment on above: PATIENT WAS FASTINGP ERFORMED BY: CB [facility] Wpaypj8598 [address] RoadDublin [place] [id number] Bilirubin [Mass/Vol] 0.4 mg/dL Normal 0.0-1.2 [facility]; [facility] Work Phone: Comment on above: PATIENT WAS FASTINGP ERFORMED BY: CB [facility] Gqolrz7606 [address]Dublin [place] [id number] Calcium [Mass/Vol] 9.9 mg/dL Normal 8.7-10.2 [facility] Internal [facility]; [facility] Internal Medicine Work Phone: Comment on above: PATIENT WAS FASTINGP ERFORMED BY: CB [facility] Xxzuni2823 [address]Dublin [place] [id number] Chloride [Moles/Vol] 102 mmol/L Normal 96-106 Comp rehensive Internal Medicine; [facility] Work Phone: Comment on above: PATIENT WAS FASTINGP ERFORMED BY: NIMCO Labsharadderic Lmobus3[address] [facility] [place] [id number] CO2 [Moles/Vol] 23 mmol/L Normal 20-29 Comprehen sive Internal Medicine; [facility] Work Phone: Comment on above: PATIENT WAS FASTINGP ERFORMED BY: NIMCO Labcoderic Jlgcoc6925 [address] [facility] [id number] Creatinine [Mass/Vol] 0.80 mg/dL Normal 0.57-1.00 [facility]; [facility] Work Phone: Comment on above: PATIENT WAS FASTINGP ERFORMED BY: NIMCO Labrosalinda Svfcbd0556 [address] [facility] [id number] GFR/1.73 sq M.predicted among non-blacks MDRD (S/P/Bld) [Vol rate/Area] 98 mL/min/{1.73_m2} Normal Comprehensiv e Internal Medicine; [facility] Work Phone: Comment on above: PATIENT WAS FASTINGP ERFORMED BY: NIMCO Labrosalinda Fqicjz0312 [address] [facility] [id number] Globulin (S) [Mass/Vol] 2.8 g/dL Normal 1.5-4.5 [facility]; [facility] Work Phone: Comment on above: PATIENT WAS FASTINGP ERFORMED BY: NIMCO Labrosalinda HayesTtimvn8047 [address] [facility] [id number] Glucose [Mass/Vol] 83 mg/dL Normal 70-99 Compre [facility]; [facility] Work Phone: Comment on above: PATIENT WAS FASTINGP ERFORMED BY: NIMCO Labcoderic Qtgzcx6587 [address] [facility] [id number] Potassium [Moles/Vol] 4.6 mmol/L Normal 3.5-5.2 [facility]; [facility] Work Phone: Comment on above: PATIENT WAS FASTINGP ERFORMED BY: NIMCO Labco Jpoftl9625 [address] RoadDublin [place] [id number] Protein [Mass/Vol] 7.3 g/dL Normal 6.0-8.5 [facility]; [facility] Work Phone: Comment on above: PATIENT WAS FASTINGP ERFORMED BY: NIMCO [facility] Strviz7734 [address] RoadDublin [place] [id number] Sodium [Moles/Vol] 139 mmol/L Normal 134-144 [facility]; [facility] Work Phone: Comment on above: PATIENT WAS FASTINGP ERFORMED BY: NIMCO [facility] Kmoqdx2042 [address] RoadDublin [place] [id number] Urea nitrogen [Mass/Vol] 18 mg/dL Normal 6-20 [facility]; [facility] Work Phone: Comment on above: PATIENT WAS FASTINGP ERFORMED BY: NIMCO [facility] Ivreig6576 [address] RoadDublin [place] [id number] Urea nitrogen/Creatinine [Mass ratio] 23 mg/mg Normal 9-23 [facility]; [facility] Work Phone: Comment on above: PATIENT WAS FASTINGP ERFORMED BY: NIMCO [facility] Cuczrh2893 [address] RoadDublin [place] [id number] MICROALBUMINOrdered By: Syst em Pipe Coverer And Insulator on 10-15-2022 Albumin DL <= 20 mg/L (U) [Mass/Vol] 6.0 ug/mL Normal Comprehensiv e Internal Medicine; [facility] Work Phone: Comment on above: PATIENT WAS FASTINGP ERFORMED BY: CB [facility] Gduuvn9411 [address] RoadDublin [place] [id number] Albumin/Creatinine (U) [Mass ratio] 3 {mg/g_creat} Normal 0-29 [facility]; [facility] Work Phone: Comment on above: Normal: 0 - 29 Moder ately increased: 30 - 300 Severely increased: >300 PATIENT WAS FASTINGP ERFORMED BY: CB [facility] Uzigkr3908 [address] RoadDublin [place] [id number] Creatinine (U) [Mass/Vol] 185.5 mg/dL Normal [facility]; [facility] Work Phone: Comment on above: PATIENT WAS FASTINGP ERFORMED BY: NIMCO Hayeslin6370 [address]Dublin [place] [id number] TSH ([id number])Ordered By: EdRover m Pipe Coverer And Insulator on 10-15-2022 TSH Qn 0.759 {uIU/mL} Normal 0.450-4.500 Comprehen sive Internal Medicine; [facility] Work Phone: Comment on above: PATIENT WAS FASTINGP ERFORMED BY: NIMCO Soto6370 [address]Dublin [place] [id number] URINALYSIS, W/ MICRO ([id number]) Ordered By: Sales Agent Insurance on 10-15-2022 Appearance (U) Clear Normal Comprehens alex Internal Medicine; [facility] Work Phone: Comment on above: PATIENT WAS FASTINGP ERFORMED BY: NIMCO Soto6370 [address] RoadDublin [place] [id number] Bilirubin Ql (U) Negative Normal Comprehe nsive Internal Medicine; [facility] Work Phone: Comment on above: PATIENT WAS FASTINGP ERFORMED BY: NIMCO Soto6370 [address]Dublin [place] [id number] Color (U) Yellow Normal [facility]; [facility] Work Phone: Comment on above: PATIENT WAS FASTINGP ERFORMED BY: NIMCO Hayeslin6370 [address]Dublin [place] [id number] Glucose Ql (U) Negative Normal Comprehens alex Internal Medicine; [facility] Work Phone: Comment on above: PATIENT WAS FASTINGP ERFORMED BY: NIMCO Labrosalinda HayesHpwkjr4518 [address] RoadDublin [place] [id number] Hemoglobin Ql (U) Negative Normal Compreh ensive Internal Medicine; [facility] Work Phone: Comment on above: PATIENT WAS FASTINGP ERFORMED BY: NIMCO Labrosalinda HayesKgqvsm4809 [address] RoadDublin [place] [id number] Ketones Ql (U) Negative Normal Comprehens alex Internal Medicine; [facility] Work Phone: Comment on above: PATIENT WAS FASTINGP ERFORMED BY: NIMCO Soto6[address] [facility] [id number] Leukocyte esterase Test strip Ql (U) Negative Normal [facility]; [facility] Work Phone: Comment on above: PATIENT WAS FASTINGP ERFORMED BY: NIMCO Soto6[address] [facility] [id number] Microscopic observation LM Nom (Urine sed) MICRON Normal [facility]; [facility] Work Phone: Comment on above: Microscopic follows if indicated. PATIENT WAS FASTINGP ERFORMED BY: NIMCO Hayeslin6[address] [facility] [id number] Microscopic observation LM Nom (Urine sed) See below: Normal [facility]; [facility] Work Phone: Comment on above: Microscopic was jatin cated and was performed. PATIENT WAS FASTINGP ERFORMED BY: NIMCO Hayeslin6370 [facility] [id number] Nitrite Ql (U) Negative Normal Comprehens alex Internal Medicine; [facility] Work Phone: Comment on above: PATIENT WAS FASTINGP ERFORMED BY: NIMCO Soto6370 [facility] [id number] pH (U) 6.5 [pH] Normal 5.0-7.5 [facility]; [facility] Work Phone: Comment on above: PATIENT WAS FASTINGP ERFORMED BY: NIMCO Hayeslin6370 [facility] [id number] Protein Ql (U) Negative Normal Comprehens alex Internal Medicine; [facility] Work Phone: Comment on above: PATIENT WAS FASTINGP ERFORMED BY: NIMCO Hayeslin6370 [facility] [id number] Specific gravity (U) [Rel density] 1.024 1 Normal 1.005-1.030 [facility]; [facility] Work Phone: Comment on above: PATIENT WAS FASTINGP ERFORMED BY: LetsWombat Blhqdq9689 [address] RoadDublin [place] [id number] Urobilinogen (U) [Mass/Vol] 0.2 mg/dL Normal 0.2-1.0 [facility]; [facility] Work Phone: Comment on above: PATIENT WAS FASTINGP ERFORMED BY: LetsWombat Prixhu0355 [address] RoadDublin [place] [id number] VITAMIN B-12 (CYANOCOBALAMIN ) (09420)Ordered By: Sales Agent Insurance on 10-15-2022 Cobalamin (Vitamin B12) [Mass/Vol] 323 pg/mL Normal 232-1245 [facility]; [facility] Work Phone: Comment on above: PATIENT WAS FASTINGP ERFORMED BY: [facility] Ophoyq9139 [address] RoadDublin [place] [id number] CALCIFIDIOL (50179) VIT D 25 Ordered By: Sales Agent Insurance on 01-23-2022 25-hydroxyvitamin D [Mass/Vol] 104.0 ng/mL Abnormal 30.0-100.0 [facility]; [facility] Work Phone: Comment on above: Vitamin D deficiency has been defined by the [place] [facility] and an Endocrine Society practice guideline as alevel of serum 25-OH vitamin D less than 20 ng/mL (1,2).The Endocrine Society went on to further define vitamin Dinsufficiency as a level between 21 and 29 ng/mL (2).1. IOM ([place] of Medicine). 2010. Dietary reference intakes for calcium and D. [place]: The National Academies Press.2. Henok MF, Sara NC, Jessica PHILLIP, et al. Evaluation, treatment, and prevention of vitamin D deficiency: an Endocrine Society clinical practice guideline. JCEM. 2010; 96(7):1911-30. PATIENT WAS FASTINGP ERFORMED BY: [facility] Zprvuw9196 [address] RoadDublin [place] [id number] CBC W/AUTO DIFF WBC (03330)O rdered By: Sales Agent Insurance on 01-23-2022 Basophils (Bld) [#/Vol] 0.1 10*3/uL Normal 0.0-0.2 [facility]; [facility] Work Phone: Comment on above: PATIENT WAS FASTINGP ERFORMED BY: NIMCO Labcoderic Qstnlo7346 [address] RoadDublin [place] [id number] Basophils/100 WBC (Bld) 1 % Normal [facility]; [facility] Work Phone: Comment on above: PATIENT WAS FASTINGP ERFORMED BY: CB [facility] Dqblrn4510 [address]Dublin [place] [id number] Eosinophils (Bld) [#/Vol] 0.1 10*3/uL Normal 0.0-0.4 [facility]; [facility] Work Phone: Comment on above: PATIENT WAS FASTINGP ERFORMED BY: [facility] Lplxan5234 [address] RoadDublin [place] [id number] Eosinophils/100 WBC (Bld) 1 % Normal [facility]; [facility] Work Phone: Comment on above: PATIENT WAS FASTINGP ERFORMED BY: [facility] Jkplom1415 [address] RoadDublin [place] [id number] Erythrocyte distribution width (RBC) [Ratio] 13.9 % Normal 11.7-15.4 [facility]; [facility] Work Phone: Comment on above: PATIENT WAS FASTINGP ERFORMED BY: [facility] Mbugjk2805 [address] RoadDublin [place] [id number] Hematocrit (Bld) [Volume fraction] 39.5 % Normal 34.0-46.6 [facility]; [facility] Work Phone: Comment on above: PATIENT WAS FASTINGP ERFORMED BY: [facility] Nzofwn1573 [address] RoadDublin [place] [id number] Hemoglobin (Bld) [Mass/Vol] 12.9 g/dL Normal 11.1-15.9 [facility]; [facility] Work Phone: Comment on above: PATIENT WAS FASTINGP ERFORMED BY: CB [facility] Ncfnot8453 [address] RoadDublin [place] [id number] Immature granulocytes (Bld) [#/Vol] 0.0 10*3/uL Normal 0.0-0.1 [facility]; [facility] Work Phone: Comment on above: PATIENT WAS FASTINGP ERFORMED BY: NIMCO [facility] Uuqxvj4809 [address] RoadDublin [place] [id number] Immature granulocytes/100 WBC (Bld) 0 % Normal [facility]; [facility] Work Phone: Comment on above: PATIENT WAS FASTINGP ERFORMED BY: [facility] Wepfta4974 [address] [facility] [place] [id number] Lymphocytes (Bld) [#/Vol] 2.1 10*3/uL Normal 0.7-3.1 [facility]; [facility] Work Phone: Comment on above: PATIENT WAS FASTINGP ERFORMED BY: NIMCO [facility] Bwtgii4219 [address] [facility]in [place] [id number] Lymphocytes/100 WBC (Bld) 21 % Normal [facility]; [facility] Work Phone: Comment on above: PATIENT WAS FASTINGP ERFORMED BY: NIMCO [facility] [facility]in [place] [id number] MCH (RBC) [Entitic mass] 28.1 pg Normal 26.6-33.0 [facility]; [facility] Work Phone: Comment on above: PATIENT WAS FASTINGP ERFORMED BY: [facility] [facility]in [place] [id number] MCHC (RBC) [Mass/Vol] 32.7 g/dL Normal 31.5-35.7 [facility]; [facility] Work Phone: Comment on above: PATIENT WAS FASTINGP ERFORMED BY: [facility] Jaxtua0008 [address] [facility] AlmaDublin [place] [id number] MCV (RBC) [Entitic vol] 86 fL Normal 79-97 [facility]; [facility] Work Phone: Comment on above: PATIENT WAS FASTINGP ERFORMED BY: [facility] Zhojzi7091 [address] RoadDublin [place] [id number] Monocytes (Bld) [#/Vol] 0.4 10*3/uL Normal 0.1-0.9 [facility]; [facility] Work Phone: Comment on above: PATIENT WAS FASTINGP ERFORMED BY: NIMCO Romeo Soto6370 [address]Dublin [place] [id number] Monocytes/100 WBC (Bld) 4 % Normal [facility]; [facility] Work Phone: Comment on above: PATIENT WAS FASTINGP ERFORMED BY: NIMCO Labsharadderic Pustjb7736 [address] RoadDublin [place] [id number] Neutrophils (Bld) [#/Vol] 7.3 10*3/uL Abnormal 1.4-7.0 [facility]; [facility] Work Phone: Comment on above: PATIENT WAS FASTINGP ERFORMED BY: NIMCO Hayeslin6370 [address]Dublin [place] [id number] Neutrophils/100 WBC (Bld) 73 % Normal [facility]; [facility] Work Phone: Comment on above: PATIENT WAS FASTINGP ERFORMED BY: NIMCO Shantellrosalinda HayesDfypig8572 [address] RoadDublin [place] [id number] Platelets (Bld) [#/Vol] 481 10*3/uL Abnormal 150-450 [facility]; [facility] Work Phone: Comment on above: PATIENT WAS FASTINGP ERFORMED BY: NIMCO Hayeslin6370 [address]Dublin [place] [id number] RBC (Bld) [#/Vol] 4.59 10*6/uL Normal 3.77-5.28 Compr ensive Internal Medicine; [facility] Work Phone: Comment on above: PATIENT WAS FASTINGP ERFORMED BY: NIMCO Labcoderic Snwknw3001 [address] RoadDublin [place] [id number] WBC (Bld) [#/Vol] 10.0 10*3/uL Normal 3.4-10.8 Compr ehensive Internal Medicine; [facility] Work Phone: Comment on above: PATIENT WAS FASTINGP ERFORMED BY: NIMCO [facility] Acgiqz8581 [address] RoadDublin [place] [id number] HgA1C , Office ([id number])Ordere d By: Jackelin Gomes on 01-23-2022 HbA1c (Bld) [Mass fraction] 5.3 % Normal 4.6 - 7.1 [facility]; [facility] Work Phone: LIPID PANEL (57929)Ordered B y: Sales Agent Insurance on 01-23-2022 Cholesterol [Mass/Vol] 141 mg/dL Normal 100-199 [facility]; [facility] Work Phone: Comment on above: PATIENT WAS FASTINGP ERFORMED BY: NIMCO [facility] Rjzpru8660 [address] RoadDublin [place] [id number] Cholesterol in HDL [Mass/Vol] 36 mg/dL Abnormal [facility]; [facility] Work Phone: Comment on above: PATIENT WAS FASTINGP ERFORMED BY: NIMCO Labcoderic Fexwey8326 [address] RoadDublin [place] [id number] Triglyceride [Mass/Vol] 123 mg/dL Normal 0-149 [facility]; [facility] Work Phone: Comment on above: PATIENT WAS FASTINGP ERFORMED BY: NIMCO [facility] Hrujer2034 [address] RoadDublin [place] [id number] LIPID PANEL (49095) 22 mg/dL Normal 5-40 Compr ehensive Internal Medicine; [facility] Work Phone: Comment on above: PATIENT WAS FASTINGP ERFORMED BY: NIMCO [facility] Lldkyx8712 [address] RoadDublin [place] [id number] LIPID PANEL (90973) 83 mg/dL Normal 0-99 Compr ehensive Internal Medicine; [facility] Work Phone: Comment on above: PATIENT WAS FASTINGP ERFORMED BY: NIMCO [facility] Pvcmvf7815 [address] RoadDublin [place] [id number] LIPID PANEL (05214) 2.3 {ratio} Normal 0.0-3.2 Comp rehensive Internal Medicine; [facility] Work Phone: Comment on above: LDL/HDL Ratio Men Wo men 1/2 Avg.Risk 1.0 1.5 Avg.Risk 3.6 3.2 2X Avg.Risk 6.2 5.0 3X Avg.Risk 8.0 6.1 PATIENT WAS FASTINGP ERFORMED BY: NIMCO Shantellrosalinda Oytsjb8458 [facility] [id number] METABOLIC PANEL, COMPREHENSI VE (26784)Ordered By: Sales Agent Insurance on 01-23-2022 Albumin [Mass/Vol] 4.4 g/dL Normal 3.8-4.8 [facility]; [facility] Work Phone: Comment on above: PATIENT WAS FASTINGP ERFORMED BY: NIMCO Labrosalinda HayesMsfeph2226 [facility] [id number] Albumin/Globulin [Mass ratio] 1.8 {ratio} Normal 1.2-2.2 [facility]; [facility] Work Phone: Comment on above: PATIENT WAS FASTINGP ERFORMED BY: NIMCO Shantellrosalinda HayesJtneqr6254 [facility] [id number] ALP [Catalytic activity/Vol] 75 U/L Normal 44-121 [facility]; [facility] Work Phone: Comment on above: PATIENT WAS FASTINGP ERFORMED BY: NIMCO Shantellrosalinda HayesQgkpnx8502 [facility] [id number] ALT [Catalytic activity/Vol] 30 U/L Normal 0-32 [facility]; [facility] Work Phone: Comment on above: PATIENT WAS FASTINGP ERFORMED BY: NIMCO Shantellrosalinda HayesNcbmqr1179 [facility] [id number] AST [Catalytic activity/Vol] 16 U/L Normal 0-40 [facility]; [facility] Work Phone: Comment on above: PATIENT WAS FASTINGP ERFORMED BY: NIMCO Shantellrosalinda HayesOybfdf9956 [facility] [id number] Bilirubin [Mass/Vol] 0.2 mg/dL Normal 0.0-1.2 [facility] Internal Medicine; [facility] Work Phone: Comment on above: PATIENT WAS FASTINGP ERFORMED BY: NIMCO Walters Xawfay7555 [address] RoadDublin [place] [id number] Calcium [Mass/Vol] 9.8 mg/dL Normal 8.7-10.2 [facility]; [facility] Work Phone: Comment on above: PATIENT WAS FASTINGP ERFORMED BY: [facility] Xietoj5516 [address] RoadDublin [place] [id number] Chloride [Moles/Vol] 102 mmol/L Normal 96-106 Comp [facility] centerensive Internal Medicine; [facility] Work Phone: Comment on above: PATIENT WAS FASTINGP ERFORMED BY: [facility] Yxdbgb0332 [address] RoadDublin [place] [id number] CO2 [Moles/Vol] 21 mmol/L Normal 20-29 [facility] Internal [facility]; [facility] Work Phone: Comment on above: PATIENT WAS FASTINGP ERFORMED BY: [facility] Uavbzb0996 [address] RoadDublin [place] [id number] Creatinine [Mass/Vol] 0.85 mg/dL Normal 0.57-1.00 [facility]; [facility] Work Phone: Comment on above: PATIENT WAS FASTINGP ERFORMED BY: [facility] Uktret8731 [address] RoadDublin [place] [id number] GFR/1.73 sq M.predicted among non-blacks MDRD (S/P/Bld) [Vol rate/Area] 92 mL/min/{1.73_m2} Normal Comprehensiv e Internal Medicine; [facility] Work Phone: Comment on above: PATIENT WAS FASTINGP ERFORMED BY: [facility] Icject3741 [address]Dublin [place] [id number] Globulin (S) [Mass/Vol] 2.5 g/dL Normal 1.5-4.5 [facility]; [facility] Work Phone: Comment on above: PATIENT WAS FASTINGP ERFORMED BY: [facility] Sllwuw3896 [address] RoadDublin [place] [id number] Glucose [Mass/Vol] 87 mg/dL Normal 65-99 [facility]; [facility] Work Phone: Comment on above: PATIENT WAS FASTINGP ERFORMED BY: NIMCO [facility] Ljtjsj4495 [address] RoadDublin [place] [id number] Potassium [Moles/Vol] 4.6 mmol/L Normal 3.5-5.2 [facility]; [facility] Work Phone: Comment on above: PATIENT WAS FASTINGP ERFORMED BY: NIMCO [facility] Xxpwda4921 [address] RoadDublin [place] [id number] Protein [Mass/Vol] 6.9 g/dL Normal 6.0-8.5 [facility]; [facility] Work Phone: Comment on above: PATIENT WAS FASTINGP ERFORMED BY: NIMCO [facility] Tohkui3339 [address] RoadDublin [place] [id number] Sodium [Moles/Vol] 140 mmol/L Normal 134-144 [facility]; [facility] Work Phone: Comment on above: PATIENT WAS FASTINGP ERFORMED BY: NIMCO Labcoderic Mieire2354 [address] RoadDublin [place] [id number] Urea nitrogen [Mass/Vol] 19 mg/dL Normal 6-20 [facility]; [facility] Work Phone: Comment on above: PATIENT WAS FASTINGP ERFORMED BY: NIMCO Labcoderic Swhsoq7792 [address] RoadDublin [place] [id number] Urea nitrogen/Creatinine [Mass ratio] 22 mg/mg Normal 9-23 [facility]; [facility] Work Phone: Comment on above: PATIENT WAS FASTINGP ERFORMED BY: NIMCO [facility] Wimhns7247 [address] RoadDublin [place] [id number] MICROALBUMINOrdered By: Syst em Pipe Coverer And Insulator on 01-23-2022 Albumin DL <= 20 mg/L (U) [Mass/Vol] 5.4 ug/mL Normal Comprehensiv e Internal Medicine; [facility] Work Phone: Comment on above: PATIENT WAS FASTINGP ERFORMED BY: NIMCO [facility] Nnfgjm2173 [address] RoadDublin [place] [id number] Albumin/Creatinine (U) [Mass ratio] 3 {mg/g_creat} Normal 0-29 [facility]; [facility] Work Phone: Comment on above: Normal: 0 - 29 Moder ately increased: 30 - 300 Severely increased: >300 PATIENT WAS FASTINGP ERFORMED BY: CB [facility] Gwgkcz4522 [address] RoadDublin [place] [id number] Creatinine (U) [Mass/Vol] 174.0 mg/dL Normal [facility]; [facility] Work Phone: Comment on above: PATIENT WAS FASTINGP ERFORMED BY: [facility] Otqthe8370 [address]Dublin [place] [id number] TSH ([id number])Ordered By: Glamite m Pipe Coverer And Insulator on 01-23-2022 TSH Qn 0.952 {uIU/mL} Normal 0.450-4.500 Comprehen sive Internal Medicine; [facility] Work Phone: Comment on above: PATIENT WAS FASTINGP ERFORMED BY: NIMCO [facility] Hlpnwj6886 [address] RoadDublin [place] [id number] URINALYSIS, W/ MICRO (00580) Ordered By: Sales Agent Insurance on 01-23-2022 Appearance (U) Clear Normal Comprehens alex Internal Medicine; [facility] Work Phone: Comment on above: PATIENT WAS FASTINGP ERFORMED BY: NIMCO [facility] Bwjmwv8087 [address] RoadDublin [place] [id number] Bilirubin Ql (U) Negative Normal Comprehe nsive Internal Medicine; [facility] Work Phone: Comment on above: PATIENT WAS FASTINGP ERFORMED BY: CB [facility] Lohrvo8598 [address] [place] [id number] Color (U) Yellow Normal [facility]; [facility] Work Phone: Comment on above: PATIENT WAS FASTINGP ERFORMED BY: NIMCO [facility] Ntanst4477 [address] RoadDublin [place] [id number] Glucose Ql (U) Negative Normal Comprehens alex Internal Medicine; [facility] Work Phone: Comment on above: PATIENT WAS FASTINGP ERFORMED BY: NIMCO Labrosalinda HayesJythhd0999 [address] RoadDublin [place] [id number] Hemoglobin Ql (U) Negative Normal Compreh ensive Internal Medicine; [facility] Work Phone: Comment on above: PATIENT WAS FASTINGP ERFORMED BY: NIMCO Labrosalinda HayesOfeefs3967 [address] RoadDublin [place] [id number] Ketones Ql (U) Negative Normal [facility]; [facility] Work Phone: Comment on above: PATIENT WAS FASTINGP ERFORMED BY: NIMCO Labrosalinda HayesMtvgqp7132 Meza RoadDublin [place] [id number] Leukocyte esterase Test strip Ql (U) Negative Normal [facility]; [facility] Work Phone: Comment on above: PATIENT WAS FASTINGP ERFORMED BY: NIMCO Hayeslin6370 Meza RoadDublin [place] [id number] Microscopic observation LM Nom (Urine sed) MICRON Normal [facility]; [facility] Work Phone: Comment on above: Microscopic follows if indicated. PATIENT WAS FASTINGP ERFORMED BY: NIMCO Labrosalinda HayesChsfrp5289 Meza RoadDublin [place] [id number] Microscopic observation LM Nom (Urine sed) See below: Normal [facility]; [facility] Work Phone: Comment on above: Microscopic was jatin cated and was performed. PATIENT WAS FASTINGP ERFORMED BY: [facility] Hizcad2133 Meza RoadDublin [place] [id number] Nitrite Ql (U) Negative Normal [facility]; [facility] Work Phone: Comment on above: PATIENT WAS FASTINGP ERFORMED BY: [facility] Zaslyv8771 Meza RoadDublin [place] [id number] pH (U) 7.0 [pH] Normal 5.0-7.5 [facility]; [facility] Work Phone: Comment on above: PATIENT WAS FASTINGP ERFORMED BY: NIM[facility] Mufmsx9533 [address]za RoadDublin [place] [id number] Protein Ql (U) Trace Normal [facility]; [facility] Work Phone: Comment on above: PATIENT WAS FASTINGP ERFORMED BY: [facility] [id number] Specific gravity (U) [Rel density] >=1.030 Abnormal 1.005-1.030 [facility]; [facility] Work Phone: Comment on above: PATIENT WAS FASTINGP ERFORMED BY: [facility] Mwmwuw6766 [facility] [id number] Urobilinogen (U) [Mass/Vol] 0.2 mg/dL Normal 0.2-1.0 [facility]; [facility] Work Phone: Comment on above: PATIENT WAS FASTINGP ERFORMED BY: [facility] [id number] VITAMIN B-12 (CYANOCOBALAMIN ) ([id number])Ordered By: Sales Agent Insurance on 01-23-2022 Cobalamin (Vitamin B12) [Mass/Vol] 187 pg/mL Abnormal 232-1245 [facility]; [facility] Work Phone: Comment on above: PATIENT WAS FASTINGP ERFORMED BY: [facility]6[address] [facility] [id number] SCRN MAMM (CAD)W/KENROY BILATo n 10-22-2021 SCRN MAMM (CAD)W/KENROY BILAT [facility] Services [address] [place] [address] SCRN MAMM (CAD)W/KENROY BILAT MR#: [id number] Acct: [id number] Name: ALMA ULLOA Rep #: [id number] : 1985 F 36 From: Vincent arias MD PCP: Dr. Odalys Raymond, DO Status: REG CLI Study: SCRN MAMM (CAD)W/KENROY BILAT Date of Exam: 09/24 06/15 Exam# [id number] Ordering Dr: Calin Callejas MD MAMMOGRAPHY - BILATERAL SCREENING REASON FOR EXAM: Female, 36 years old. Routine annual screening examination. PERTINENT HISTORY: Grandmother with breast cancer. Aunt with breast cancer. TECHNIQUE: Digital bilateral breast kenroy (3D mammographic acquisition) in the CC and MLO projections. 2-D mediolateral oblique (MLO) and craniocaudad (CC) views of both breasts were obtained. CAD: Full Field Digital Mammography with Computer Added Detection was performed. COMPARISON: None. Baseline examination. FINDINGS: Breast Composition: There are scattered areas of fibroglandular density. There are no dominant masses or suspicious calcifications. Small benign appearing bilateral axillary lymph nodes. No other significant abnormalities are identified. BI/SCRN MAMM (CAD)W/KENROY BILAT IMPRESSION: Negative screening mammogram. Yearly followup mammogram recommended. (A) ASSESSMENT CATEGORY: BIRADS Category 2: Benign. A letter regarding these results will be sent to the patient by the facility within 30 days. Approximately 10% of breast cancers are not detected by mammography. A normal mammogram should not delay biopsy of a clinically suspicious abnormality. [id number] Electronically Signed: Vincent Pickard MD at 14:48 EDT , CC: Dr. Calin Callejas MD; Dr. Odalys Raymond DO Court Operations Clerk: Signed Normal [facility] HSV 1 AND 2 IgGon 10-10-2021 HSV 1 IgG 11.60 index High 0.00-0.90 [facility] Comment on above: Result Comment: Nega tive <0.91 Equivocal 0.91 - 1.09 Positive >1.09 Note: Negative indicates no antibodies detected to HSV-1. Equivocal may suggest early infection. If clinically appropriate, retest at later date. Positive indicates antibodies detected to HSV-1. Performed By: #### L 3890.6100, L3890.6300, L509.8000, L3890.6005, L3400.1610 #### [facility] [address] [place], [place], [id number] HSV 2 IgG < 0.91 Normal 0.00-0.90 [facility] Comment on above: Result Comment: Nega tive <0.91 Equivocal 0.91 - 1.09 Positive >1.09 Note: Negative indicates no HSV-2 antibodies detected. Positive indicates HSV-2 antibodies detected. Equivocal and low positive HSV-2 screens (Index 0.91-5.00) may be false positive and are reflexed to supplemental testing in accordance with CDC guidelines. Performed at: [address] [id number] Program Architect: Sanjeev Mendenhall PhD, Phone: [phone] Performed By: #### L 3890.6100, L3890.6300, L509.8000, L3890.6005, L3400.1610 #### [facility] [address] [facility] [place], [place], [id number] HIV - WCHon 10-09-2021 HIV Non-Reactive Normal Nonreactive [facility] Comment on above: Performed By: #### L 3890.6100, L3890.6300, L509.8000, L3890.6005, L3400.1610 #### [facility] [address] [place], [address] Hepatitis B Surface Antigeno n 10-09-2021 HEP B Surf Ag Non-Reactive Normal Nonreactive [facility] Comment on above: Performed By: #### L 3890.6100, L3890.6300, L509.8000, L3890.6005, L3400.1610 #### [facility] [address] [place], [address] Hepatitis C Antibodyon 10-09 Hepatitis C Ab Non-Reactive Normal Nonreactive [facility] Comment on above: Result Comment: Non Reactive: < 0.8 Equivocal: >/= 0.8 to < 1.0 Reactive: >/= 1.0 The CDC recommends that a reactive/equivocal HCV antibody result be followed up by the HCV Nucleic Acid Amplification test (137639) Performed By: #### L 3890.6100, L3890.6300, L509.8000, L3890.6005, L3400.1610 #### [facility] [address] [place], [address] L509.8000on 10-09-2021 Syphilis Abs Non-Reactive Normal [facility] Comment on above: Performed By: #### L 3890.6100, L3890.6300, L509.8000, L3890.6005, L3400.1610 #### [facility] [address] [facility] [place], [place], [id number] HIV 1 and HIV-2 antibody ass ay with HIV-1 p24 antigen detectionon 10-08-2021 HIV 1+2 Ab+HIV1 p24 Ag IA Ql Non-Reactive Nonreactive [facility] Work Phone: No Panel Informationon 10-08 Hepatitis B Surface Antigen Non-Reactive Nonreactive [facility] Work Phone: Hepatitis C Antibody Non-Reactive Nonreactive [facility] Work Phone: Comment on above: Non Reactive: < 0.8 Equivocal: >/= 0.8 to < 1.0 Reactive: >/= 1.0The CDC recommends that a reactive/equivocal HCV antibody result be followed up by the HCV Nucleic Acid Amplificationtest (630766) Herpes Simplex Virus I IgG Antibody 11.60 index [facility] Work Phone: Comment on above: Negative <0.91 Equiv ocal 0.91 - 1.09 Positive >1.09 Note: Negative indicates no antibodies detected to HSV-1. Equivocal may suggest early infection. If clinically appropriate, retest at later date. Positive indicates antibodies detected to HSV-1. Serum Treponema species anti body detectionon 10-08-2021 Treponema sp Ab Ql (S) Non-Reactive [facility] Work Phone: Serum herpes simplex virus 2 antibody assay by immunoassay (units/volume)on 10-08-2021 HSV 2 Ab IA Qn (S) < 0.91 index [facility] Work Phone: Comment on above: Negative <0.91 Equiv ocal 0.91 - 1.09 Positive >1.09 Note: Negative indicates no HSV-2 antibodies detected. Positive indicates HSV-2 antibodies detected. Equivocal and low positive HSV-2 screens (Index 0.91-5.00) may be false positive and are reflexed to supplemental testing in accordance with CDC guidelines.Performed at: [facility] Predictry[address] [id number] Director: Sanjeev Mendenhall PhD, Phone: [phone] Miscellaneous Lab Procedure 2on 08-19-2021 [facility] LAB TEST 2 Normal [facility] Comment on above: Order Comment: #[id number] B2 GLYCOPROTEIN 1 SERUM [id number] B2 GLYCOPROTEIN 1 SERUM RF Result Comment: TEST RESULT LIMITS Beta-2 Glycoprotein I Ab,G,A,M Beta-2 Glycoprotein I Ab, IgG <9 GPI IgG units 0-20 Please Note: The reference interval reflects a 3SD or 99th percentile interval, which is thought to represent a potentially clinically significant result in accordance with the International Consensus Statement on the classification criteria for definitive antiphospholipid syndrome (APS). J Thromb Haem 2006;4:295-306. Beta-2 Glycoprotein I Ab, IgA <9 GPI IgA units 0-25 Please Note: The reference interval reflects a 3SD or 99th percentile interval, which is thought to represent a potentially clinically significant result in accordance with the International Consensus Statement on the classification criteria for definitive antiphospholipid syndrome (APS). J Thromb Haem 2006;4:295-306. Beta-2 Glycoprotein I Ab, IgM <9 GPI IgM units 0-32 Please Note: The reference interval reflects a 3SD or 99th percentile interval, which is thought to represent a potentially clinically significant result in accordance with the International Consensus Statement on the classification criteria for definitive antiphospholipid syndrome (APS). J Thromb Haem 2006;4:295-306. TESTING PERFORMED AT [facility]. ORIGINAL REPORT ON FILE IN LAB CONTAINS ADDITIONAL TEST SITE INFORMATION. Performed By: #### P SSII #### [facility] [address] [place], [address] Oncology Visit Reporton 07-24 Oncology Visit Report [facility] [address] [place] [address] OFFICE VISIT Date of Service: 08/19/21 1534 MR#: [id number] Acct: [id number] Name: ALMA ULLOA Rep #: [id number] : 1985 From: Bob Johnson MD Age/Sex: 36/F Location: [facility] Status: Signed HPI Subjective Date of Service 08/19/21 Chief Complaint F/u for abnormal coagulation. History of Present Illness 36y.o.woman was found to have abnormal coagulation, DRVV was 53 on 04/26/2021 so referred for further evaluation. Had blood work done and comes for follow up. [facility] Medical History Abnormal coagulation profile Anxiety Chest pain of uncertain etiology Cholelithiasis COVID CPAP (continuous positive airway pressure) dependence Depression Diabetes Diarrhea Epigastric pain Fatty (change of) liver, not elsewhere classified Fatty liver Gastric reflux Gastroparesis Generalized weakness History of IBS Hypertension Migraine headache Non-smoker PCOS (polycystic ovarian syndrome) Pre-diabetes Sleep apnea Wears glasses Surgical History History of cholecystectomy ( 06/2021) History of colonoscopy History of liver biopsy ( 06/2021) Family History Father Hypertension CVA (cerebral vascular accident) High blood cholesterol Mother Hypertension Thyroid disorder Asthma Social History Smoking Status: Never smoker alcohol intake: never substance use type: does not use ROS Constitutional Constitutional: Reports systems reviewed and no addt'l complaints, except as documented Eyes Eyes: Reports systems reviewed and no addt'l complaints, except as documented ENT HEENT: Reports systems reviewed and no addt'l complaints, except as documented Cardiovascular Cardiovascular: Reports systems reviewed and no addt'l complaints, except as documented Respiratory/Chest Respiratory/Chest: Reports systems reviewed and no addt'l complaints, except as documented Gastrointestinal Gastrointestinal: Reports systems reviewed and no addt'l complaints, except as documented Genitourinary Genitourinary: Reports systems reviewed and no addt'l complaints, except as documented Musculoskeletal Musculoskeletal: Reports systems reviewed and no addt'l complaints, except as documented Integumentary Integumentary: Reports systems reviewed and no addt'l complaints, except as documented Neurologic Neurologic: Reports systems reviewed and no addt'l complaints, except as documented Psychiatric Psychiatric: Reports systems reviewed and no addt'l complaints, except as documented Endocrine Endocrinology: Reports systems reviewed and no addt'l complaints, except as documented Hematologic/Lymphatic Hematologic/Lymphatic: Reports systems reviewed and no addt'l complaints, except as documented Allergic/Immunologic Allergic/Immunologic: Reports systems reviewed and no addt'l complaints, except as documented Intake Vital Signs 08/19/21 15:34 Height 5 ft 3 in Weight: 126.807 kg BMI 49.5 BP 109/71 Blood Pressure Location Rt femoral Position Sitting Respiration 15 Pulse 64 Pulse Source Monitor Temp 98.2 F Temperature Source Temporal Artery Pulse Oximetry (%) 96 Oxygen Delivery Method room air Intake Education And Development Manager Required: No Accompanied by: self Is patient in pain?: No Allergies No Known Allergies Allergy (Verified 08/19/21 15:40) Medications cholecalciferol (vitamin D3) [Vitamin D3] 125 mcg PO DAILY 11/23/20 [History Confirmed 08/19/21] escitalopram oxalate 20 mg PO DAILY 11/23/20 [History Confirmed 08/19/21] ibuprofen [IBU] 800 mg PO BID PRN 11/23/20 [History Confirmed 08/19/21] nebivolol [Bystolic] 5 mg PO DAILY 11/23/20 [History Confirmed 08/19/21] esomeprazole magnesium 20 mg capsule,delayed release 20 mg PO DAILY PRN 06/27/21 [History Confirmed 08/19/21] famotidine 20 mg tablet 20 mg PO DAILY PRN 06/27/21 [History Confirmed 08/19/21] metformin 500 mg tablet 500 mg PO DAILY tab 06/27/21 [History Confirmed 08/19/21] semaglutide 1 mg/dose (2 mg/1.5 mL) subcutaneous pen injector 1 mg SUBCUT BERMAN ml 06/27/21 [History Confirmed 08/19/21] losartan 50 mg PO DAILY 06/28/21 [History Confirmed 08/19/21] budesonide 3 mg capsule,delayed,extended release 9 mg PO DAILY #270 ea 08/14/21 [Rx Confirmed 08/19/21] colestipol 1 gram tablet 2 g PO BID #360 tab 08/14/21 [Rx Confirmed 08/19/21] dicyclomine 20 mg tablet 20 mg PO TID PRN #270 tab 08/14/21 [Rx Confirmed 08/19/21] Central Venous Access Central Venous Access: No Laboratory Tests 04/26/21 08/14/21 08/14/21 14:35 14:10 14:10 PT 13.9 PT Diluted 48.2 H 42.9 (more content not included)... Normal [facility] Lupus Anticoagulant Compon 0 - Interpretation Comment: Normal . [facility] Comment on above: Result Comment: No l upus anticoagulant was detected. Performed at: - [facility] [id number] Program Architect: Kita Suarez MD, Phone: [phone] Performed By: #### P SSII #### [facility] [address] [place], [address] aPTT Coag (Bld) [Time] 38.2 s Normal 0.0-51.9 [facility] Comment on above: Performed By: #### P SSII #### [facility] [address] [place], [address] DILUTE PT (dPT) 42.9 sec Normal 0.0-47.6 [facility] Comment on above: Performed By: #### P SSII #### [facility] [address] [place], [place], [address] dPT Conf. Ratio 1.17 Ratio Normal 0.00-1.34 [facility] Comment on above: Performed By: #### P SSII #### [facility] [address] [place], [address] DRVVT 46.1 sec Normal 0.0-47.0 [facility] Comment on above: Performed By: #### P SSII #### [facility] [address] [place], [place], [address] THROMBIN TIME 17.6 sec Normal 0.0-23.0 [facility] Comment on above: Performed By: #### P SSII #### [facility] [address] [place], [place], [address] Miscellaneous Lab Procedureo n 08-16-2021 [facility] LAB TEST Normal [facility] Comment on above: Order Comment: LC#[id number] [id number] B2 GLYCOPROTEIN 1 SERUM [facility] [id number] anticardiolipin ab iga,igg,igm SERUM Result Comment: TEST RESULT LIMITS Anticardiolip Ab, IgA/G/M, Qn Anticardiolipin Ab,IgG,Qn <9 GPL U/mL 0-14 Negative: <15 Indeterminate: 15 - 20 Low-Med Positive: >20 - 80 High Positive: >80 Anticardiolipin Ab,IgM,Qn 12 MPL U/mL 0-12 Negative: <13 Indeterminate: 13 - 20 Low-Med Positive: >20 - 80 High Positive: >80 Anticardiolipin Ab,IgA,Qn <9 APL U/mL 0-11 Negative: <12 Indeterminate: 12 - 20 Low-Med Positive: >20 - 80 High Positive: >80 TESTING PERFORMED AT [facility]. ORIGINAL REPORT ON FILE IN LAB CONTAINS ADDITIONAL TEST SITE INFORMATION. Performed By: #### P SSII #### [facility] [address] [place], [address] Absolute lymphocyte counton 08-14-2021 Lymphocytes Auto (Unsp spec) [#/Vol] 3.35 10*3/uL 0.83-4.51 [facility] Work Phone: Basophil percentageon 2021 Basophils/100 WBC (Bld) 0.7 % 0-1 [facility] Work Phone: Bilirubin [Mass/Vol] 0.40 mg/dL 0.20-1.00 [facility] Work Phone: Comment on above: For patients on eltr ombopag therapy, use of Dimension [place] TBIL is not recommended. Chloride [Moles/Vol] 107 mmol/L 98-107 [facility] Work Phone: Eosinophils/100 WBC (Bld) 1.6 % 0-5 [facility] Work Phone: Glucose [Mass/Vol] 119 mg/dL 74-106 [facility] Work Phone: Comment on above: Fasting Glucose resu lt from 100 to 125 mg/dL suggests IMPAIRED HOMEOSTASIS per A.D.A. criteria. Neutrophils (Bld) [#/Vol] 6.5 10*3/uL 2.0-7.7 [facility] Work Phone: Neutrophils/100 WBC (Bld) 61.3 % 47-70 [facility] Work Phone: Potassium [Moles/Vol] 3.6 mmol/L 3.5-5.1 [facility] Work Phone: Protein [Mass/Vol] 7.5 g/dL 6.4-8.2 [facility] Work Phone: Sodium [Moles/Vol] 141 mmol/L 136-145 [facility] Work Phone: WBC (Bld) [#/Vol] 10.6 10*3/uL 4.4-11.0 [facility] Work Phone: Blood erythrocytes count (nu mber/volume)on 08-14-2021 RBC (Bld) [#/Vol] 4.65 10*6/uL 4.2-5.4 [facility] Work Phone: Blood hemoglobin measurement (mass/volume)on 08-14-2021 Hemoglobin (Bld) [Mass/Vol] 13.2 g/dL 12.0-15.0 [facility] Work Phone: Blood lymphocytes/100 leukoc yteson 08-14-2021 Lymphocytes/100 WBC (Bld) 31.6 % 19-41 [facility] Work Phone: Blood monocytes/100 leukocyt eson 08-14-2021 Monocytes/100 WBC (Bld) 4.3 % 0-10 [facility] Work Phone: Blood platelet mean volumeon 08-14-2021 Platelet mean volume (Bld) [Entitic vol] 8.7 fL 6.2-12.0 [facility] Work Phone: CBC W/Diff, Automatedon 07-24 Absolute Lymph 3.35 X10 3/uL Normal 0.83-4.51 [facility] Comment on above: Performed By: #### L 4500.0100, L801.1541, L100.0100, L801.1543, L500.4050, L504.2610 #### [facility] [address] [place], [address] Absolute Neut 6.5 X10 3/uL Normal 2.0-7.7 [facility] Comment on above: Performed By: #### L 4500.0100, L801.1541, L100.0100, L801.1543, L500.4050, L504.2610 #### [facility] [address] [place], [address] Basophils/100 WBC (Bld) 0.7 % Normal 0-1 [facility] Comment on above: Performed By: #### L 4500.0100, L801.1541, L100.0100, L801.1543, L500.4050, L504.2610 #### [facility] [address] [place], [address] Eosinophils/100 WBC (Bld) 1.6 % Normal 0-5 [facility] Comment on above: Performed By: #### L 4500.0100, L801.1541, L100.0100, L801.1543, L500.4050, L504.2610 #### [facility] [address] [place], [address] Erythrocyte distribution width (RBC) [Ratio] 14.1 % Normal 11.6-14.6 [facility] Comment on above: Performed By: #### L 4500.0100, L801.1541, L100.0100, L801.1543, L500.4050, L504.2610 #### [facility] [address] [place], [address] Hematocrit (Bld) [Volume fraction] 40.2 % Normal 37-47 [facility] Comment on above: Performed By: #### L 4500.0100, L801.1541, L100.0100, L801.1543, L500.4050, L504.2610 #### [facility] [address] [place], [address] Hemoglobin (Bld) [Mass/Vol] 13.2 g/dL Normal 12.0-15.0 [facility] Comment on above: Performed By: #### L 4500.0100, L801.1541, L100.0100, L801.1543, L500.4050, L504.2610 #### [facility] [address] [place], [address] IG% 0.500 Normal 0.0-0.9 [facility] Comment on above: Result Comment: IG% - Immature Granulocytes (promyelocytes, myelocytes and metamyelocytes) > 1% indicates that a LEFT SHIFT is Present. Performed By: #### L 4500.0100, L801.1541, L100.0100, L801.1543, L500.4050, L504.2610 #### [facility] [address] [place], [address] Lymphocytes/100 WBC (Bld) 31.6 % Normal 19-41 [facility] Comment on above: Performed By: #### L 4500.0100, L801.1541, L100.0100, L801.1543, L500.4050, L504.2610 #### [facility] [address] [place], [address] MCH (RBC) [Entitic mass] 28.4 pg Normal 27.0-32.0 [facility] Comment on above: Performed By: #### L 4500.0100, L801.1541, L100.0100, L801.1543, L500.4050, L504.2610 #### [facility] [address] [place], [address] MCHC (RBC) [Mass/Vol] 32.8 g/dL Normal 32-36 [facility] Comment on above: Performed By: #### L 4500.0100, L801.1541, L100.0100, L801.1543, L500.4050, L504.2610 #### [facility] [address] [place], [address] MCV (RBC) [Entitic vol] 86.5 fL Normal 81-99 [facility] Comment on above: Performed By: #### L 4500.0100, L801.1541, L100.0100, L801.1543, L500.4050, L504.2610 #### [facility] [address] [place], [address] Monocytes/100 WBC (Bld) 4.3 % Normal 0-10 [facility] Comment on above: Performed By: #### L 4500.0100, L801.1541, L100.0100, L801.1543, L500.4050, L504.2610 #### [facility] [address] [place], [address] Neutrophils/100 WBC (Bld) 61.3 % Normal 47-70 [facility] [facility] Comment on above: Performed By: #### L 4500.0100, L801.1541, L100.0100, L801.1543, L500.4050, L504.2610 #### [facility] [address] [place], [address] Nucleated RBC (Bld) [#/Vol] 0 10*3/uL Normal 0-5 [facility] Comment on above: Performed By: #### L 4500.0100, L801.1541, L100.0100, L801.1543, L500.4050, L504.2610 #### [facility] [address] [place], [address] Platelet mean volume (Bld) [Entitic vol] 8.7 fL Normal 6.2-12.0 [facility] Comment on above: Performed By: #### L 4500.0100, L801.1541, L100.0100, L801.1543, L500.4050, L504.2610 #### [facility] [address] [place], [address] Platelets (Bld) [#/Vol] 443 10*3/uL Normal 150-450 [facility] Comment on above: Performed By: #### L 4500.0100, L801.1541, L100.0100, L801.1543, L500.4050, L504.2610 #### [facility] [address] [place], [address] RBC (Bld) [#/Vol] 4.65 10*6/uL Normal 4.2-5.4 [facility] Comment on above: Performed By: #### L 4500.0100, L801.1541, L100.0100, L801.1543, L500.4050, L504.2610 #### [facility] [address] [place], [address] RDW SD 44.1 fl High 35.1-43.9 [facility] Comment on above: Performed By: #### L 4500.0100, L801.1541, L100.0100, L801.1543, L500.4050, L504.2610 #### [facility] [address] [place], [address] WBC (Bld) [#/Vol] 10.6 10*3/uL Normal 4.4-11.0 [facility] Comment on above: Performed By: #### L 4500.0100, L801.1541, L100.0100, L801.1543, L500.4050, L504.2610 #### [facility] [address] [place], [address] [facility]-2021 Albumin [Mass/Vol] 3.6 g/dL Normal 3.2-5.0 [facility] Comment on above: Order Comment: LC#16 3915 B2 GLYCOPROTEIN 1 SERUM RF 1 Performed By: #### L 4500.0100, L801.1541, L100.0100, L801.1543, L500.4050, L504.2610 #### [facility] [address] [place], [address] Albumin/Globulin [Mass ratio] 0.9 {ratio} Normal 0.9-2.4 [facility] Comment on above: Order Comment: #16 3915 B2 GLYCOPROTEIN 1 SERUM RF 1 Performed By: #### L 4500.0100, L801.1541, L100.0100, L801.1543, L500.4050, L504.2610 #### [facility] [address] [place], [address] ALK P 80 U/L Normal 45-117 [facility] Comment on above: Order Comment: #16 3915 B2 GLYCOPROTEIN 1 SERUM RF 1 Performed By: #### L 4500.0100, L801.1541, L100.0100, L801.1543, L500.4050, L504.2610 #### [facility] [address] [place], [address] ALT [Catalytic activity/Vol] 54 U/L Normal 13-56 [facility] Comment on above: Order Comment: #16 3915 B2 GLYCOPROTEIN 1 SERUM RF 1 Performed By: #### L 4500.0100, L801.1541, L100.0100, L801.1543, L500.4050, L504.2610 #### [facility] [address] [place], [address] AST [Catalytic activity/Vol] 19 U/L Normal 15-37 [facility] Comment on above: Order Comment: #16 3915 B2 GLYCOPROTEIN 1 SERUM RF 1 Performed By: #### L 4500.0100, L801.1541, L100.0100, L801.1543, L500.4050, L504.2610 #### [facility] [address] [place], [address] Bilirubin [Mass/Vol] 0.40 mg/dL Normal 0.20-1.00 [facility] Comment on above: Order Comment: #16 3915 B2 GLYCOPROTEIN 1 SERUM RF 1 Result Comment: For patients on eltrombopag therapy, use of Dimension [place] TBIL is not recommended. Performed By: #### L 4500.0100, L801.1541, L100.0100, L801.1543, L500.4050, L504.2610 #### [facility] [address] [place], [address] BUN/CRE 14.5 RATIO Normal 10-20 [facility] Comment on above: Order Comment: #16 3915 B2 GLYCOPROTEIN 1 SERUM RF 1 Performed By: #### L 4500.0100, L801.1541, L100.0100, L801.1543, L500.4050, L504.2610 #### [facility] [address] [place], [address] CA,Total 9.4 mg/dL Normal 8.5-10.1 [facility] Comment on above: Order Comment: #16 3915 B2 GLYCOPROTEIN 1 SERUM RF 1 Performed By: #### L 4500.0100, L801.1541, L100.0100, L801.1543, L500.4050, L504.2610 #### [facility] [address] [place], [address] Chloride [Moles/Vol] 107 mmol/L Normal 98-107 [facility] Comment on above: Order Comment: #16 3915 B2 GLYCOPROTEIN 1 SERUM RF 1 Performed By: #### L 4500.0100, L801.1541, L100.0100, L801.1543, L500.4050, L504.2610 #### [facility] [address] [place], [address] CO2 [Moles/Vol] 27.0 mmol/L Normal 21.0-32.0 [facility] Comment on above: Order Comment: #16 3915 B2 GLYCOPROTEIN 1 SERUM RF 1 Performed By: #### L 4500.0100, L801.1541, L100.0100, L801.1543, L500.4050, L504.2610 #### [facility] [address] [place], [address] Creatinine [Mass/Vol] 0.96 mg/dL Normal 0.55-1.02 [facility] Comment on above: Order Comment: #16 3915 B2 GLYCOPROTEIN 1 SERUM RF 1 Result Comment: The validity of the calculated GFR GFRAA in patients over 70 years has not been determined. Clinical correlation is essential. Performed By: #### L 4500.0100, L801.1541, L100.0100, L801.1543, L500.4050, L504.2610 #### [facility] [address] [place], [address] EST GFR - AA 84 mL/min Normal >60 [facility] Comment on above: Order Comment: #16 3915 B2 GLYCOPROTEIN 1 SERUM RF 1 Result Comment: Afri can Guatemalan GFR Calc Performed By: #### L 4500.0100, L801.1541, L100.0100, L801.1543, L500.4050, L504.2610 #### [facility] [address] [place], [address] GAP 7 Normal 5-15 [facility] Comment on above: Order Comment: #16 3915 B2 GLYCOPROTEIN 1 SERUM RF 1 Performed By: #### L 4500.0100, L801.1541, L100.0100, L801.1543, L500.4050, L504.2610 #### [facility] [address] [place], [address] GFR/1.73 sq M.predicted among non-blacks MDRD (S/P/Bld) [Vol rate/Area] 70 mL/min/{1.73_m2} Normal >60 [facility] Comment on above: Order Comment: #16 3915 B2 GLYCOPROTEIN 1 SERUM RF 1 Result Comment: Non- GFR Calc Performed By: #### L 4500.0100, L801.1541, L100.0100, L801.1543, L500.4050, L504.2610 #### [facility] [address] [place], [address] Globulin (S) [Mass/Vol] 3.9 g/dL Normal 2.2-4.2 [facility] Comment on above: Order Comment: #16 3915 B2 GLYCOPROTEIN 1 SERUM RF 1 Performed By: #### L 4500.0100, L801.1541, L100.0100, L801.1543, L500.4050, L504.2610 #### [facility] [address] [place], [address] Glucose [Mass/Vol] 119 mg/dL High 74-106 [facility] Comment on above: Order Comment: #16 3915 B2 GLYCOPROTEIN 1 SERUM RF 1 Result Comment: Fast ing Glucose result from 100 to 125 mg/dL suggests IMPAIRED HOMEOSTASIS per A.D.A. criteria. Performed By: #### L 4500.0100, L801.1541, L100.0100, L801.1543, L500.4050, L504.2610 #### [facility] [address] [place], [address] Potassium [Moles/Vol] 3.6 mmol/L Normal 3.5-5.1 [facility] Comment on above: Order Comment: #16 3915 B2 GLYCOPROTEIN 1 SERUM RF 1 Performed By: #### L 4500.0100, L801.1541, L100.0100, L801.1543, L500.4050, L504.2610 #### [facility] [address] [place], [place], [id number] Sodium [Moles/Vol] 141 mmol/L Normal 136-145 [facility] Comment on above: Order Comment: #16 3915 B2 GLYCOPROTEIN 1 SERUM RF 1 Performed By: #### L 4500.0100, L801.1541, L100.0100, L801.1543, L500.4050, L504.2610 #### [facility] [address] [place], [address] T PROT 7.5 g/dL Normal 6.4-8.2 [facility] Comment on above: Order Comment: #16 3915 B2 GLYCOPROTEIN 1 SERUM RF 1 Performed By: #### L 4500.0100, L801.1541, L100.0100, L801.1543, L500.4050, L504.2610 #### [facility] [address] [place], [address] Urea nitrogen [Mass/Vol] 14 mg/dL Normal 7-18 [facility] Comment on above: Order Comment: #16 3915 B2 GLYCOPROTEIN 1 SERUM RF 1 Performed By: #### L 4500.0100, L801.1541, L100.0100, L801.1543, L500.4050, L504.2610 #### [facility] [address] [place], [place], [id number] Determination of erythrocyte mean corpuscular volume (MCV)on 08-14-2021 MCV (RBC) [Entitic vol] 86.5 fL 81-99 [facility] Work Phone: Dilute Dinh's viper venom timeon 08-14-2021 dRVVT Coag (PPP) [Time] 46.1 s [facility] Work Phone: Erythrocyte Sed Rateon 08-14 SED RATE 33 mm/hr High 0-30 [facility] Comment on above: Performed By: #### L 3890.6100, L3890.6300, L509.8000, L3890.6005, L3400.1610 #### [facility] [address] [place], [place], [id number] Erythrocyte sedimentation ra yang 08-14-2021 ESR (Bld) [Velocity] 33 mm/h 0-30 [facility] Work Phone: Gastroenterology Visit Repor ton 08-14-2021 Gastroenterology Visit Report [facility] [address] [place] [address] OFFICE VISIT Date of Service: 08/14/21 MR#: [id number] Acct: [id number] Name: ALMA ULLOA Rep #: [id number] : 1985 Provider: ARLEEN Wallace Age/Sex: 36/F Location[place] [facility] [place] Status: Signed Intake Vital Signs 08/14/21 14:45 Height 5 ft 3 in Weight: 282 lb BMI 49.9 BP 112/71 Blood Pressure Location Rt brachial Position Sitting Pulse 84 Pulse Oximetry (%) 97 Intake Visit Reasons: FU Chief Complaint: post mario Allergies No Known Allergies Allergy (Verified 08/14/21 14:48) Medications cholecalciferol (vitamin D3) [Vitamin D3] 125 mcg PO DAILY 11/23/20 [History Confirmed 08/14/21] escitalopram oxalate 20 mg PO DAILY 11/23/20 [History Confirmed 08/14/21] ibuprofen [IBU] 800 mg PO BID PRN 11/23/20 [History Confirmed 08/14/21] nebivolol [Bystolic] 5 mg PO DAILY 11/23/20 [History Confirmed 08/14/21] esomeprazole magnesium 20 mg capsule,delayed release 20 mg PO DAILY PRN 06/27/21 [History Confirmed 08/14/21] famotidine 20 mg tablet 20 mg PO DAILY PRN 06/27/21 [History Confirmed 08/14/21] metformin 500 mg tablet 500 mg PO DAILY tab 06/27/21 [History Confirmed 08/14/21] semaglutide 1 mg/dose (2 mg/1.5 mL) subcutaneous pen injector 1 mg SUBCUT BERMAN ml 06/27/21 [History Confirmed 08/14/21] losartan 50 mg PO DAILY 06/28/21 [History Confirmed 08/14/21] budesonide 3 mg capsule,delayed,extended release 9 mg PO DAILY #270 ea 08/14/21 [Rx Confirmed 08/14/21] colestipol 1 gram tablet 2 g PO BID #360 tab 08/14/21 [Rx Confirmed 08/14/21] dicyclomine 20 mg tablet 20 mg PO TID PRN #270 tab 08/14/21 [Rx Confirmed 08/14/21] PFSH Medical History Abnormal coagulation profile Anxiety Chest pain of uncertain etiology Cholelithiasis COVID CPAP (continuous positive airway pressure) dependence Depression Diabetes Diarrhea Epigastric pain Fatty (change of) liver, not elsewhere classified Fatty liver Gastric reflux Gastroparesis Generalized weakness History of IBS Hypertension Migraine headache Non-smoker PCOS (polycystic ovarian syndrome) Pre-diabetes Sleep apnea Wears glasses Surgical History History of cholecystectomy ( 06/2021) History of colonoscopy History of liver biopsy ( 06/2021) Family History Father Hypertension CVA (cerebral vascular accident) High blood cholesterol Mother Hypertension Thyroid disorder Asthma Social History Smoking Status: Never smoker alcohol intake: never substance use type: does not use HPI HPI Chief Complaint: post mario Details: ALMA ULLOA, is a 36 F who presents to the office today for f/u liver biopsy. She has hepatomegaly (liver 20.3 cm on US) and fatty liver per US. Liver elastography revealed liver stiffness of only 4 kPa, F0 Metavir score (F0-F4). We requested liver biopsy at the time of her cholecystectomy which was done 07/01/21. Liver biopsy revealed chronic hepatitis, grade 1, stage 1, macrovesicular steatosis. She is having increased diarrhea since the cholecystectomy. Continues to get some pain in RUQ, taking dicyclomine prn--not sure if it's helping. We had already been treating her for lifelong diarrhea. She resumed budesonide which has helped, typically takes 6-9 mg daily. Has never been on colestipol. Gets some urgency of bowels, especially after meals now post- cholecystectomy. Liver biopsy: Chronic hepatitis, grade 1, stage 1 (modified Knodell scoring system for chronic hepatitis). Macrovesicular steatosis.See comment. COMMENT Sections show fatty deposition within the liver parenchyma. Inflammation is primarily confined to focal areas with focal lobular involvement. Trichrome stain shows uptake in the portal areas with minimal ???chicken-wire??? type uptake within the parenchyma. No obvious cirrhosis is seen. PAS with and without diastase does not reveal accumulation of abnormal proteins. Iron stain does not show intraparenchymal deposition of iron. Reticulin stain reveals a preserved parenchymal architecture. All matched controls are appropriate. EGD: LA grade A esophagitis, large amount of food residue in the stomach. Colonoscopy: Large amount of retained stool, poor visualization. No pathology found on biopsies. Right upper quadrant ultrasound: Liver 20.3 cm with fatty infiltration. 4.4 cm gallstone FibroScan: 4 kPa, F0 Metavir score. ROS Const Constitutional: No fatigue ENT ENT: No difficulty swallowing Gastro GI: Positive for abdominal pain, bloating, diarrhea, heartburn and nausea/dyspepsia; No belching, change in bowel habits, change in stool chadwick (more content not included)... Normal [facility] Hematocrit Auto (Bld) [Volum e fraction]on 08-14-2021 Hematocrit (Bld) [Volume fraction] 40.2 % 37-47 [facility] Work Phone: INR in Blood by Coagulation assayon 08-14-2021 INR Coag (Bld) [Relative time] 1.1 {INR} [facility] Work Phone: LDHon 08-14-2021 LDH 136 U/L Normal 84-246 [facility] Comment on above: Order Comment: #[id number] 2627 B2 GLYCOPROTEIN 1 SERUM RF 1 Performed By: #### L 4500.0100, L801.1541, L100.0100, L801.1543, L500.4050, L504.2610 #### [facility] [address] [place], [address] Laboratory - Chemistry and C hemistry - challengeon 08-14-2021 ALP [Catalytic activity/Vol] 80 U/L 45-117 [facility] Work Phone: ALT [Catalytic activity/Vol] 54 U/L 13-56 [facility] Work Phone: CO2 [Moles/Vol] 27.0 mmol/L 21.0-32.0 [facility] Work Phone: Globulin (S) [Mass/Vol] 3.9 g/dL 2.2-4.2 [facility] Work Phone: Urea nitrogen/Creatinine [Mass ratio] 14.5 mg/mg 10-20 [facility] Work Phone: Laboratory - Coagulationon 0 08-14-2021 aPTT Coag (Bld) [Time] 29.5 s 24.1-36.2 [facility] Work Phone: PT Coag (PPP) [Time] 13.9 s 11.7-14.9 [facility] Work Phone: Laboratory - Hematology and Cell countson 08-14-2021 Erythrocyte distribution width (RBC) [Entitic vol] 44.1 fL 35.1-43.9 [facility] Work Phone: Erythrocyte distribution width (RBC) [Ratio] 14.1 % 11.6-14.6 [facility] Work Phone: Immature granulocytes/100 WBC (Bld) 0.500 % 0.0-0.9 [facility] Work Phone: Comment on above: IG% - Immature Granu locytes (promyelocytes, myelocytes and metamyelocytes) > 1% indicates that a LEFT SHIFT is Present. MCH (RBC) [Entitic mass] 28.4 pg 27.0-32.0 [facility] Work Phone: Nucleated RBC/100 WBC (Bld) [Ratio] 0 % 0-5 [facility] Work Phone: MCHC Auto (RBC) [Mass/Vol]on 08-14-2021 MCHC (RBC) [Mass/Vol] 32.8 g/dL 32-36 [facility] Work Phone: No Panel Informationon 08-14 Estimated GFR (MDRD) Amer 84 mL/min >60 [facility] Work Phone: Comment on above: GFR Calc Estimated GFR (MDRD) Non-Af Amer 70 mL/min >60 [facility] Work Phone: Comment on above: Non- GFR Calc Miscellaneous Test See comment [facility] Work Phone: Comment on above: TEST RESULT LIMITSBe ta-2 Glycoprotein I Ab,G,A,MBeta-2 Glycoprotein I Ab, IgG <9 GPI IgG units 0-20Please Note: The reference interval reflects a 3SD or 99th percentile interval, which is thought to represent a potentially clinically significant result in accordance with the International Consensus Statement on the classification criteria for definitive antiphospholipid syndrome(APS). J Thromb Haem 2006;4:295-306. Beta-2 Glycoprotein I Ab, IgA <9 GPI IgA units 0-25Please Note: The reference interval reflects a 3SD or 99th percentile interval, which is thought to represent a potentially clinically significant result in accordance with the International Consensus Statement on the classification criteria for definitive antiphospholipid syndrome(APS). J Thromb Haem 2006;4:295-306.Beta-2 Glycoprotein I Ab, IgM <9 GPI IgM units 0-32Please Note: The reference interval reflects a 3SD or 99th percentile interval, which is thought to represent a potentially clinically significant result in accordance with the International Consensus Statement on the classification criteria for definitive antiphospholipid syndrome(APS). J Thromb Haem 2006;4:295-306. TESTING PERFORMED AT [facility]. ORIGINAL REPORT ON FILE IN LAB CONTAINS ADDITIONAL TEST SITE INFORMATION. ____ Partial Thromboplast Timeon 08-14-2021 aPTT Coag (Bld) [Time] 29.5 s Normal 24.1-36.2 [facility] Comment on above: Performed By: #### L 3890.6100, L3890.6300, L509.8000, L3890.6005, L3400.1610 #### [facility] [address] [place], [place], [phone] Platelets bldon 08-14-2021 Platelets (Bld) [#/Vol] 443 10*3/uL 150-450 [facility] Work Phone: Prothrombin Time w/INRon INR Coag (PPP) [Relative time] 1.1 {INR} Normal [facility] Comment on above: Performed By: #### L 3890.6100, L3890.6300, L509.8000, L3890.6005, L3400.1610 #### [facility] [address] [place], [address] PT Coag (PPP) [Time] 13.9 s Normal 11.7-14.9 [facility] Comment on above: Performed By: #### L 3890.6100, L3890.6300, L509.8000, L3890.6005, L3400.1610 #### [facility] [address] [place], [place], [id number] [phone] Serum or plasma albumin brandan urement (mass/volume)on 08-14-2021 Albumin [Mass/Vol] 3.6 g/dL 3.2-5.0 [facility] Work Phone: Serum or plasma albumin/glob ulin mass ratioon 08-14-2021 Albumin/Globulin [Mass ratio] 0.9 {ratio} 0.9-2.4 [facility] Work Phone: Serum or plasma calcium brandan urement (mass/volume)on 08-14-2021 Calcium [Mass/Vol] 9.4 mg/dL 8.5-10.1 [facility] Work Phone: Serum or plasma creatinine m easurement (mass/volume)on 08-14-2021 Creatinine [Mass/Vol] 0.96 mg/dL 0.55-1.02 [facility] Work Phone: Comment on above: The validity of the calculated GFR & GFRAA in patients over 70 years has not been determined. Clinical correlation is essential. Serum or plasma urea nitroge n measurement (mass/volume)on 08-14-2021 Urea nitrogen [Mass/Vol] 14 mg/dL 7-18 [facility] Work Phone: Thin prep Papanicolaou smear with manual screeningon 08-14-2021 Thin prep Papanicolaou smear with manual screening 19 U/L 15-37 [facility] Work Phone: Thin prep Papanicolaou smear with manual screening 7 5-15 [facility] Work Phone: Thin prep Papanicolaou smear with manual screening 136 U/L 84-246 [facility] Work Phone: Thin prep Papanicolaou smear with manual screening 42.9 sec [facility] Work Phone: Thin prep Papanicolaou smear with manual screening 1.17 Ratio [facility] Work Phone: Thin prep Papanicolaou smear with manual screening 38.2 sec [facility] Work Phone: Thin prep Papanicolaou smear with manual screening Comment: [facility] Work Phone: Comment on above: No lupus anticoagula nt was detected.Performed at: - [address] [id number] Director: Kita Suarez MD, Phone: [phone] Thrombin time in platelet po or plasmaon 08-14-2021 Thrombin time Coag (PPP) [Time] 17.6 sec [facility] Work Phone: Surgery Visit Reporton 07-11 Surgery Visit Report [facility] [address] [place] [address] OFFICE VISIT Date of Service: 07/11/21 MR#: [id number] Acct: [id number] Name: ALMA ULLOA Rep #: [id number] : 1985 Provider: Dr. Toro Sharif Ceava lange MD Age/Sex: 36/F Location: [facility] Status: Signed Intake Intake Visit Reasons: GALLBLADDER 07/01 Chief Complaint: post mario Education And Development Manager Required: No Is patient in pain?: No Allergies No Known Allergies Allergy (Verified 07/11/21 09:29) Medications cholecalciferol (vitamin D3) [Vitamin D3] 125 mcg PO DAILY 11/23/20 [History Confirmed 07/11/21] escitalopram oxalate 20 mg PO DAILY 11/23/20 [History Confirmed 07/11/21] ibuprofen [IBU] 800 mg PO BID PRN 11/23/20 [History Confirmed 07/11/21] nebivolol [Bystolic] 5 mg PO DAILY 11/23/20 [History Confirmed 07/11/21] dicyclomine 20 mg tablet 20 mg PO TID PRN #90 tab 06/07/21 [Rx Confirmed 07/11/21] budesonide 3 mg capsule,delayed,extended release 6 mg PO DAILY ea 06/27/21 [History Confirmed 07/11/21] esomeprazole magnesium 20 mg capsule,delayed release 20 mg PO DAILY PRN 06/27/21 [History Confirmed 07/11/21] famotidine 20 mg tablet 20 mg PO DAILY PRN 06/27/21 [History Confirmed 07/11/21] metformin 500 mg tablet 500 mg PO DAILY tab 06/27/21 [History Confirmed 07/11/21] semaglutide 1 mg/dose (2 mg/1.5 mL) subcutaneous pen injector 1 mg SUBCUT BERMAN ml 06/27/21 [History Confirmed 07/11/21] losartan 50 mg PO DAILY 06/28/21 [History Confirmed 07/11/21] Is last menstrual period known: No Post menopausal: No Patient : No Subjective Details: 36-year-old female. She is status post laparoscopic cholecystectomy with cholangiograms and Ger-Cut needle core biopsy of July 01, 2021. Pathology demonstrated chronic cholecystitis cholelithiasis and cholesterolosis. Liver biopsy showed chronic hepatitis grade a stage I with macrovesicular steatosis. The patient is seeing Dr. Joe rAias gastroenterology for treatment of her liver disease. Patient notes some mild nausea particularly in the morning. Occasionally she has some looser stools depending upon what she eats. 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 Objective Details: Abdomen is soft, Steri-Strips still in place, bowel sounds present unremarkable, demonstrating particular tenderness in the right upper quadrant. Coding Level of Care Code Global Post Op Diagnoses Cholelithiasis with chronic cholecystitis K80.10 Cholelithiasis location: gallbladder Biliary obstruction: without biliary obstruction Fatty liver K76.0 Hepatitis K75.9 [facility] Medical History (Updated 07/11/21 @ 09:[address] Toro Epstein MD) Abnormal coagulation profile Anxiety Chest pain of uncertain etiology Cholelithiasis COVID CPAP (continuous positive airway pressure) dependence Depression Diabetes Diarrhea Epigastric pain Fatty (change of) liver, not elsewhere classified Fatty liver Gastric reflux Gastroparesis Generalized weakness History of IBS Hypertension Migraine headache Non-smoker PCOS (polycystic ovarian syndrome) Pre-diabetes Sleep apnea Wears glasses Surgical History (Updated 07/11/21 @ 09:30 by Capri Encarnacion) History of cholecystectomy ( 06/2021) History of colonoscopy History of liver biopsy ( 06/2021) Family History Father Hypertension CVA (cerebral vascular accident) High blood cholesterol Mother Hypertension Thyroid disorder Asthma Social History (Updated 06/27/21 @ 09:36 by Lexie Lerma) Smoking Status: Never smoker alcohol intake: never substance use type: does not use Assessment and Plan (No Qualifiers) Assessment and Plan (1) Cholelithiasis with chronic cholecystitis: Status: Chronic (2) Fatty liver: Status: Acute (3) Hepatitis: Status: Acute Plan Details Additional Comments: The patient's had an opportunity to ask and have questions answered. She is encouraged to follow-up with Dr. Joe Arias regarding her steatohepatitis. She has had an opportunity to ask and have questions answered. Further surgical office follow-up can be as needed. Copy: Dr. Joe Arias and Dr. Odalys Epstein M.D., F.A.C.S. 07/11/21 0935 Date Toro Dang Signature: Date (if applicable) CC: Normal [facility] Basic Metabolic Profile (BMP )on 07-01-2021 BUN/CRE 24.8 RATIO High 10-20 [facility] Comment on above: Performed By: #### L 3890.6100, L3890.6300, L509.8000, L3890.6005, L3400.1610 #### [facility] Laboratory [address] [place], [address] CA,Total 9.1 mg/dL Normal 8.5-10.1 [facility] Comment on above: Performed By: #### L 3890.6100, L3890.6300, L509.8000, L3890.6005, L3400.1610 #### [facility] [address] [place], [address] Chloride [Moles/Vol] 109 mmol/L High 98-107 [facility] Comment on above: Performed By: #### L 3890.6100, L3890.6300, L509.8000, L3890.6005, L3400.1610 #### [facility] [address] [place], [address] CO2 [Moles/Vol] 24.0 mmol/L Normal 21.0-32.0 [facility] Comment on above: Performed By: #### L 3890.6100, L3890.6300, L509.8000, L3890.6005, L3400.1610 #### [facility] [address] [place], [address] Creatinine [Mass/Vol] 0.81 mg/dL Normal 0.55-1.02 [facility] Comment on above: Result Comment: The validity of the calculated GFR GFRAA in patients over 70 years has not been determined. Clinical correlation is essential. Performed By: #### L 3890.6100, L3890.6300, L509.8000, L3890.6005, L3400.1610 #### [facility] [address] [place], [address] ECRCL 76.67 ml/min Normal [facility] Comment on above: Performed By: #### L 3890.6100, L3890.6300, L509.8000, L3890.6005, L3400.1610 #### [facility] [address] [place], [address] EST GFR - AA 104 mL/min Normal >60 [facility] Comment on above: Result Comment: Afri can Guatemalan GFR Calc Performed By: #### L 3890.6100, L3890.6300, L509.8000, L3890.6005, L3400.1610 #### [facility] [address] [place], [address] GAP 5 Normal 5-15 [facility] Comment on above: Performed By: #### L 3890.6100, L3890.6300, L509.8000, L3890.6005, L3400.1610 #### [facility] [address] [place], [address] GFR/1.73 sq M.predicted among non-blacks MDRD (S/P/Bld) [Vol rate/Area] 86 mL/min/{1.73_m2} Normal >60 [facility] Comment on above: Result Comment: Non- GFR Calc Performed By: #### L 3890.6100, L3890.6300, L509.8000, L3890.6005, L3400.1610 #### [facility] [address] [place], [address] Glucose [Mass/Vol] 97 mg/dL Normal 74-106 [facility] Comment on above: Performed By: #### L 3890.6100, L3890.6300, L509.8000, L3890.6005, L3400.1610 #### [facility] [address] [place], [address] Potassium [Moles/Vol] 3.9 mmol/L Normal 3.5-5.1 [facility] Comment on above: Performed By: #### L 3890.6100, L3890.6300, L509.8000, L3890.6005, L3400.1610 #### [facility] [address] [place], [address] Sodium [Moles/Vol] 138 mmol/L Normal 136-145 [facility] Comment on above: Performed By: #### L 3890.6100, L3890.6300, L509.8000, L3890.6005, L3400.1610 #### [facility] [address] [place], [address] Urea nitrogen [Mass/Vol] 20 mg/dL High 7-18 [facility] Comment on above: Performed By: #### L 3890.6100, L3890.6300, L509.8000, L3890.6005, L3400.1610 #### [facility] Laboratory [address] [place], [address] Basophil percentageon 2021 Chloride [Moles/Vol] 109 mmol/L 98-107 [facility] Work Phone: Glucose [Mass/Vol] 97 mg/dL 74-106 [facility] Work Phone: Potassium [Moles/Vol] 3.9 mmol/L 3.5-5.1 [facility] Work Phone: Sodium [Moles/Vol] 138 mmol/L 136-145 [facility] Work Phone: WBC (Bld) [#/Vol] 9.0 10*3/uL 4.4-11.0 [facility] Work Phone: Bedside Glucoseon 07-01-2021 FINGERSTICK GLU 170 mg/dL High 70-110 [facility] Comment on above: Result Comment: LUIS GEMENT OF PATIENT CARE PER NURSING PROTOCOL Performed By: #### L 3890.6100, L3890.6300, L509.8000, L3890.6005, L3400.1610 #### [facility] [address] [place], [address] (035 FINGERSTICK GLU 91 mg/dL Normal 70-110 [facility] Comment on above: Result Comment: LUIS GEMENT OF PATIENT CARE PER NURSING PROTOCOL Performed By: #### P SSII #### [facility] Laboratory [address] [place], [place], [address] Blood erythrocytes count (nu mber/volume)on 07-01-2021 RBC (Bld) [#/Vol] 4.68 10*6/uL 4.2-5.4 [facility] Work Phone: Blood hemoglobin measurement (mass/volume)on 07-01-2021 Hemoglobin (Bld) [Mass/Vol] 13.1 g/dL 12.0-15.0 [facility] Work Phone: Blood platelet mean volumeon 07-01-2021 Platelet mean volume (Bld) [Entitic vol] 8.5 fL 6.2-12.0 [facility] Work Phone: CBC-Complete Blood Cnt No Di ffon 07-01-2021 Erythrocyte distribution width (RBC) [Ratio] 13.9 % Normal 11.6-14.6 [facility] Comment on above: Performed By: #### L 3890.6100, L3890.6300, L509.8000, L3890.6005, L3400.1610 #### [facility] [address] [place], [address] Hematocrit (Bld) [Volume fraction] 40.5 % Normal 37-47 [facility] Comment on above: Performed By: #### L 3890.6100, L3890.6300, L509.8000, L3890.6005, L3400.1610 #### [facility] [address] [place], [address] Hemoglobin (Bld) [Mass/Vol] 13.1 g/dL Normal 12.0-15.0 [facility] Comment on above: Performed By: #### L 3890.6100, L3890.6300, L509.8000, L3890.6005, L3400.1610 #### [facility] [address] [place], [address] MCH (RBC) [Entitic mass] 28.0 pg Normal 27.0-32.0 [facility] Comment on above: Performed By: #### L 3890.6100, L3890.6300, L509.8000, L3890.6005, L3400.1610 #### [facility] [address] [place], [address] MCHC (RBC) [Mass/Vol] 32.3 g/dL Normal 32-36 [facility] Comment on above: Performed By: #### L 3890.6100, L3890.6300, L509.8000, L3890.6005, L3400.1610 #### [facility] [address] [place], [address] MCV (RBC) [Entitic vol] 86.5 fL Normal 81-99 [facility] Comment on above: Performed By: #### L 3890.6100, L3890.6300, L509.8000, L3890.6005, L3400.1610 #### [facility] Laboratory [address] [place], [address] Platelet mean volume (Bld) [Entitic vol] 8.5 fL Normal 6.2-12.0 [facility] Comment on above: Performed By: #### L 3890.6100, L3890.6300, L509.8000, L3890.6005, L3400.1610 #### [facility] [address] [place], [address] Platelets (Bld) [#/Vol] 438 10*3/uL Normal 150-450 [facility] Comment on above: Performed By: #### L 3890.6100, L3890.6300, L509.8000, L3890.6005, L3400.1610 #### [facility] [address] [place], [address] RBC (Bld) [#/Vol] 4.68 10*6/uL Normal 4.2-5.4 [facility] Comment on above: Performed By: #### L 3890.6100, L3890.6300, L509.8000, L3890.6005, L3400.1610 #### [facility] Laboratory [address] [place], [address] RDW SD 43.6 fl Normal 35.1-43.9 [facility] Comment on above: Performed By: #### L 3890.6100, L3890.6300, L509.8000, L3890.6005, L3400.1610 #### [facility] [address] [place], [address] WBC (Bld) [#/Vol] 9.0 10*3/uL Normal 4.4-11.0 [facility] Comment on above: Performed By: #### L 3890.6100, L3890.6300, L509.8000, L3890.6005, L3400.1610 #### [facility] Laboratory [address] [place], [address] Cholangiogram/ O R,Initialon 07-01-2021 Cholangiogram/ O R,Initial [facility] Imaging Services [address] [place] [address] Cholangiogram/ O R,Initial MR#: [id number] Acct: [id number] Name: ALMA ULLOA Rep #: [id number] : 1985 F 36 From: Vincent arias MD PCP: Dr. Odalys Raymond DO Status: [facility] Study: Cholangiogram/ O R,Initial Date of Exam: 07/01 Exam# [id number] Ordering Dr: Toro Epstein MD STUDY: INTRAOPERATIVE CHOLANGIOGRAM. REASON FOR EXAM: Female, 36 years old. PAIN FLUOROSCOPY TIME (if supplied): ( 33.8 seconds ) minutes/seconds. A cine loop of 145 images was submitted. TECHNIQUE: An intraoperative cholangiogram was performed by the surgeon. Imaging was submitted. COMPARISON: None. FINDINGS: The common bile duct is mildly dilated. There is narrowing of the distal portion of the common bile duct. Only a small amount of contrast is seen entering the duodenum. RAD/Cholangiogram/ O R,Initial IMPRESSION: Narrowing of the distal portion of the common bile duct. Minimal contrast is seen entering the duodenum. Electronically Signed: Vincent Pickard MD at 8:57 EST , CC: Dr. Odalys Raymond DO; Dr. Toro Epstein MD Court Operations Clerk: Signed Normal [facility] Determination of erythrocyte mean corpuscular volume (MCV)on 07-01-2021 MCV (RBC) [Entitic vol] 86.5 fL 81-99 [facility] Work Phone: Discharge Instructionon Discharge Instruction [facility] Medical Records Department [address] [place] [address] Instructions for Home/Discharge Instructions 07/01/21711 MR#: [id number] Acct: [id number] Name: ALMA ULLOA Rep #: [id number] : 1985 36 From: Toro Epstein MD PCP: Dr. Odalys Raymond DO Status:[facility] Discharge Instructions Procedure General Surgery Diet Discharge Diet: Light diet - advance as tolerated (if you have questions about your diet instructions, please talk to you doctor.) Activity Discharge Activity: May Not Drive (for 3-5 days or while taking narcotic pain medicine.) May shower in (days): 1 Lifting Restrictions: 10 pounds Dressing / Incision Call your doctor if your incision/area has: Continuous Slow Oozing, Sudden Increased Bleeding, Increased Pain/ Swelling, Increased Redness and Foul Smelling Discharge Call your doctor if you observe: Fever of 101 or Higher Suture Line Care: Avoid Pulling/Pushing and Avoid Pinching/Bending Additional Dressing/Incision Instructions:: Change or remove dressing in 4 days. Leave steri-strips in place for 1 week. Follow Up Care Please Follow Up With: Toro Epstein MD When: Call [phone] to make an appointment to be seen in about 10 days. Test Results: Test results from this visit will be discussed in further detail at your follow-up appointment, if applicable. Discharge Plan Admission Attending Provider: Toro Epstein Primary Care Provider: Odalys Raymond Discharge Orders/Prescriptions Prescriptions: No Action dicyclomine 20 mg tablet 20 mg PO TID PRN (Reason: diarrhea and cramps) Qty: 90 RF: 1 metformin 500 mg tablet 500 mg PO DAILY RF: 0 budesonide [Entocort EC] 3 mg capsule,delayed,extend.r elease 6 mg PO DAILY RF: 0 esomeprazole magnesium [Nexium] 20 mg capsule,delayed release(DR/EC) 20 mg PO DAILY PRN (Reason: acid reflux) RF: 0 famotidine 20 mg tablet 20 mg PO DAILY PRN (Reason: Acid Reflux) RF: 0 ibuprofen [IBU] 800 mg Tablet 800 mg PO BID PRN (Reason: Pain) RF: 0 escitalopram oxalate 20 mg tablet 20 mg PO DAILY RF: 0 nebivolol [Bystolic] 5 mg Tablet 5 mg PO DAILY RF: 0 cholecalciferol (vitamin D3) [Vitamin D3] 125 mcg (5,000 unit) Tablet 125 mcg PO DAILY RF: 0 Ozempic 1 mg/dose (2 mg/1.5 mL) pen injector 1 mg SUBCUT BERMAN RF: 0 losartan 50 mg Tablet 50 mg PO DAILY RF: 0 07/01/21 1611 Toro Epstein MD CC: Dr. Odalys Raymond, Signed Normal [facility] Glucose Glucometer (BldC) [M ass/Vol]on 07-01-2021 Glucose [Mass/Vol] 170 mg/dL 70-110 [facility] Work Phone: Comment on above: MANAGEMENT OF PATIEN T CARE PER NURSING PROTOCOL Hematocrit Auto (Bld) [Volum e fraction]on 07-01-2021 Hematocrit (Bld) [Volume fraction] 40.5 % 37-47 [facility] Work Phone: Hemoglobin A1con 07-01-2021 HbA1c (Bld) [Mass fraction] 5.8 % High 3.8-5.6 [facility] Comment on above: Result Comment: Norm al < 5.7 % Prediabetic 5.7 - 6.4 % Diabetic >or= 6.5 % Please note range changes. Performed By: #### L 3890.6100, L3890.6300, L509.8000, L3890.6005, L3400.1610 #### [facility] Laboratory [address] [place], [place], [address] Laboratory - Chemistry and C hemistry - challengeon 07-01-2021 CO2 [Moles/Vol] 24.0 mmol/L 21.0-32.0 [facility] Work Phone: HCG ( test) Ql (U) Negative [facility] Work Phone: Comment on above: Very dilute urine sp ecimens, as indicated by a low specificgravity, may not contain textile machinery sales representative levels of hCG. If is still suspected, a first morning urinespecimen should be collected 48 hours later and tested. Urea nitrogen/Creatinine [Mass ratio] 24.8 mg/mg 10-20 [facility] Work Phone: Laboratory - Hematology and Cell countson 07-01-2021 Erythrocyte distribution width (RBC) [Entitic vol] 43.6 fL 35.1-43.9 [facility] Work Phone: Erythrocyte distribution width (RBC) [Ratio] 13.9 % 11.6-14.6 [facility] Work Phone: MCH (RBC) [Entitic mass] 28.0 pg 27.0-32.0 [facility] Work Phone: MCHC Auto (RBC) [Mass/Vol]on 07-01-2021 MCHC (RBC) [Mass/Vol] 32.3 g/dL 32-36 [facility] Work Phone: No Panel Informationon 07-01 Estimated Creatinine Clearance Calc 76.67 ml/min [facility] Work Phone: Estimated GFR (MDRD) Amer 104 mL/min >60 [facility] Work Phone: Comment on above: GFR Calc Estimated GFR (MDRD) Non-Af Amer 86 mL/min >60 [facility] Work Phone: Comment on above: Non- GFR Calc Operative Reporton Operative Report [facility] Medical Records Department [address] [place] [address] Operative Report 07/01/21 0903 MR#: [id number] Acct: [id number] Name: ALMA ULLOA Rep #: [id number] : 1985 36 From: Toro Epstein MD PCP: Dr. Odalys Raymond DO Status:[facility] Location: [facility] Problems Associated Problem List Diagnoses (1) Cholelithiasis with chronic cholecystitis: (2) Fatty (change of) liver, not elsewhere classified: Report of Operation Date of Procedure: 07/01/21 Pre-Operative Diagnosis: Chronic cholecystitis cholelithiasis steatosis Surgery/Procedure Performed:: Laparoscopic cholecystectomy with cholangiograms, needle core right lobe liver biopsy Description of Surgical Findings:: Timeout informed consent was obtained. 36-year-old female was taken to the operating place upon the table underwent general endotracheal intubation anesthesia. The abdomen sterilely prepped and draped. 3 g of Ancef were given conventionally weight-based. The abdomen sterilely prepped and draped. 0.5% Marcaine was used as a local anesthetic. Throughout the procedure total 30 cc was used. Skin sites were. And excised. A supraumbilical vertical incision was created sharp dissection carried down through the subcutaneous tissue. The patient is noted to be morbidly obese and this dissection was requiring Army-Hilham retractors and deeper exposure. Holding sutures of 0 Vicryl placed small incision made in the fascia and then a varies needle inserted the abdomen was insufflated with CO2 to a pressure of 12 mmHg pressure. 10 mm trocar inserted. 10 mm laparoscope inserted. Under direct visualization the abdomen was inspected no evidence of any trocar injuries. The liver itself although enlarged did not have a tanvir yellow appearance. 5 mm trochars were placed in the epigastric mid abdomen right upper quadrant. The gallbladder was grasped and distracted. Tedious and careful blunt dissection was instituted at the infundibulum until clearly the critical view was achieved. Cystic artery was anteriorly at the cystic duct more posteriorly. The artery was secured twice proximally once distally with Hem-o-jacek clips prior to transecting it. Hem-o-jacek clip was placed on the cystic duct incision in the cystic duct cholangiogram catheter was inserted through a 14-gauge Angiocath and fluoroscopically controlled cholangiograms were obtained demonstrating what appeared to be normal ductal anatomy and though with some spasm distally there was flow into the small bowel. Small amount of retrograde flow within the pancreatic duct. The cholangiogram catheter was removed and a additional hemolock clip was placed on the cystic duct stump. The cystic duct was transected. Posterior attachments of the liver with further secured with hemolock clips. The gallbladder was then dissected free from the liver bed using electrocautery. A very large dominant stone was noted in the gallbladder. No bile spillage. Gallbladder is released and placed in a retrieval bag. Then through the Angiocath site a needle core device was placed in 2 core biopsies were attempted of the right lobe of the liver. First biopsy did not return significant material so the second biopsy was performed. Nora that I had an adequate core with that. Getting access in order to cauterize this remains somewhat challenging cauterized and then made sure I had hemostasis. Subhepatic space was inspected it was hemostatic. The right upper quadrant was irrigated and aspirated free of excess fluid. At this point I elected not to pursue additional course for risk of occult bleeding. The cores were placed on Telfa immediately placed in formalin. The abdomen was allowed to deflate through an antiviral valve. The fascia at the supraumbilical site had to be slightly lengthened vertically in order for removal of the very dominant stone. Trochars were removed. The midline fascia was closed with a running 0 PDS. Skin edges approximated running or interrupted subdermal 4- 0 Monocryl. Steri-Strips Telfa OpSite dressings applied. Sponge and instrument and needle counts were reported to the surgeon to be correct. Specimen gallbladder and right lobe liver core biopsies. Drains none. Blood loss minimal. The patient was taken to the recovery area in satisfactory addition without apparent complication Toro Epstein M.D., F.A.C.S. Surgeon: Toro Epstein Type of Anesthesia: General and Local Anesthesiologist: Clayton Coffman 07/01/21 1611 Cosigner Signature (if applicable): CC: Dr. Odalys Raymond DO; Dr. Toro Epstein MD Signed Normal [facility] Platelets bldon 07-01-2021 Platelets (Bld) [#/Vol] 438 10*3/uL 150-450 [facility] Work Phone: ,Urineon 07-01-2021 Beta HCG ( test) Ql (U) Negative Normal [facility] Comment on above: Result Comment: Very dilute urine specimens, as indicated by a low specific gravity, may not contain textile machinery sales representative levels of hCG. If is still suspected, a first morning urine specimen should be collected 48 hours later and tested. Performed By: #### L 3890.6100, L3890.6300, L509.8000, L3890.6005, L3400.1610 #### [facility] Laboratory [address] [place], [address] Serum or plasma calcium brandan urement (mass/volume)on 07-01-2021 Calcium [Mass/Vol] 9.1 mg/dL 8.5-10.1 [facility] Work Phone: Serum or plasma creatinine m easurement (mass/volume)on 07-01-2021 Creatinine [Mass/Vol] 0.81 mg/dL 0.55-1.02 [facility] Work Phone: Comment on above: The validity of the calculated GFR & GFRAA in patients over 70 years has not been determined. Clinical correlation is essential. Serum or plasma urea nitroge n measurement (mass/volume)on 07-01-2021 Urea nitrogen [Mass/Vol] 20 mg/dL 7-18 [facility] Work Phone: Thin prep Papanicolaou smear with manual screeningon 07-01-2021 Thin prep Papanicolaou smear with manual screening 5 5-15 [facility] Work Phone: Trichrome (control)on 2021 Trichrome (control) OPERATION: Laparosco pic cholecystectomy with IOC, liver biopsy PRE-OP DIAGNOSIS: Fatty liver, cholelithiasis with chronic cholecystitis TISSUE SUBMITTED: A ??? Gallbladder, B ??? Liver biopsy A. Gallbladder, cholecystectomy: Cholesterolosis, chronic cholecystitis and cholelithiasis. Benign pericystic lymph node. B. Liver, needle core biopsy: Chronic hepatitis, grade 1, stage 1 (modified Knodell scoring system for chronic hepatitis). Macrovesicular steatosis. See comment. AM:noam 07/02/2021 B. Sections show fatty deposition within the liver parenchyma. Inflammation is primarily confined to focal areas with focal lobular involvement. Trichrome stain shows uptake in the portal areas with minimal ???chicken-wire??? type uptake within the parenchyma. No obvious cirrhosis is seen. PAS with and without diastase does not reveal accumulation of abnormal proteins. Iron stain does not show intraparenchymal deposition of iron. Reticulin stain reveals a preserved parenchymal architecture. All matched controls are appropriate. Slides are reviewed. A - Received is one container labeled with the patient's name and designated gallbladder. The specimen consists of a gallbladder measuring 10 cm in length and 3.5 cm in diameter. The external surface is pink-davila, smooth and glistening for the most part. Focally it is granular, hemorrhagic and contains cautery artifact. The gallbladder contains green-yellow mucoid bile and one ovoid, yellowish-brown stone measuring 4.5 x 2.5 x 2.5 cm. The mucosa is bile-stained and without any mass lesions. The gallbladder wall measures up to 0.2 cm in thickness. The mucosa also shows several yellowish streaks consistent with cholesterolosis. Also present close to cystic duct is an ovoid nodule, a possible lymph node, measuring 0.5 cm in greatest dimension. Paint Roller Winder sections from the gallbladder and the cystic duct including entire nodule, a possible lymph node, are submitted in one cassette. B - Received in fixative is one container labeled with the patient's name and designated liver biopsy. The specimen consists of an elongated fragment of davila soft tissue measuring 1.5 cm in length and 0.1 cm in diameter. The specimen is totally submitted in one cassette. / SJ:noam 07/01/2021 TC:3 [facility]: 50160, 32167, 15521 x5 Signed (signature on file) Dr. Domenico Diaz, 07/02/21 1224 Normal [facility] Comment on above: Performed By: #### L 3890.6100, L3890.6300, L509.8000, L3890.6005, L3400.1610 #### [facility] Laboratory [address] [place], [place], [id number] Whole blood hemoglobin A1c/t otal hemoglobin ratio (mass fraction)on 07-01-2021 HbA1c (Bld) [Mass fraction] 5.8 % 3.8-5.6 [facility] Work Phone: Comment on above: Normal < 5.7 % Predi abetic 5.7 - 6.4 % Diabetic >or= 6.5 % Please note range changes. Surgery Visit Reporton 06-27 Surgery Visit Report [facility] [address] [place], [place] [id number] OFFICE VISIT Date of Service: 06/27/21 MR#: [id number] Acct: [id number] Name: ALMA ULLOA Rep #: [id number] : 1985 Provider: Dr. Toro lange MD Age/Sex: 36/F Location: [facility] Status: Signed Intake Vital Signs 06/27/21 09:36 Height 5 ft 2 in Weight: 293 lb 4 oz BMI 53.6 BP 122/80 H Blood Pressure Location Rt brachial Position Sitting Respiration 18 Pulse 88 Pulse Source Monitor Temp 97.4 F L Temp Source Temporal Pulse Oximetry (%) 96 Oxygen Delivery Method room air Intake Visit Reasons: GALLBLADDER Chief Complaint: Gallstone Education And Development Manager Required: No Is patient in pain?: No Allergies No Known Allergies Allergy (Verified 06/27/21 09:40) Medications cholecalciferol (vitamin D3) [Vitamin D3] 125 mcg PO DAILY 11/23/20 [History Confirmed 06/27/21] escitalopram oxalate 20 mg PO DAILY 11/23/20 [History Confirmed 06/27/21] ibuprofen [IBU] 800 mg PO BID PRN 11/23/20 [History Confirmed 06/27/21] nebivolol [Bystolic] 5 mg PO DAILY 11/23/20 [History Confirmed 06/27/21] dicyclomine 20 mg tablet 20 mg PO TID PRN #90 tab 06/07/21 [Rx Confirmed 06/27/21] budesonide 3 mg capsule,delayed,extended release 6 mg PO DAILY ea 06/27/21 [History Confirmed 06/27/21] esomeprazole magnesium 20 mg capsule,delayed release 20 mg PO DAILY PRN 06/27/21 [History Confirmed 06/27/21] famotidine 20 mg tablet 20 mg PO DAILY PRN 06/27/21 [History Confirmed 06/27/21] metformin 500 mg tablet 500 mg PO DAILY tab 06/27/21 [History Confirmed 06/27/21] semaglutide 1 mg/dose (2 mg/1.5 mL) subcutaneous pen injector 1 mg SUBCUT QWEEK ml 06/27/21 [History Confirmed 06/27/21] [facility] Medical History (Updated 06/27/21 @ 10:[address] Toro Epstein MD) Abnormal coagulation profile Anxiety Chest pain of uncertain etiology Cholelithiasis CPAP (continuous positive airway pressure) dependence Depression Diabetes Diarrhea Epigastric pain Fatty (change of) liver, not elsewhere classified Fatty liver Gastric reflux Gastroparesis Generalized weakness Hypertension Migraine headache Non-smoker PCOS (polycystic ovarian syndrome) Pre-diabetes Sleep apnea Wears glasses Surgical History (Updated 06/27/21 @ 09:34 by Lexie Lerma) No history of previous surgery Family History Father Hypertension CVA (cerebral vascular accident) High blood cholesterol Mother Hypertension Thyroid disorder Asthma Social History (Updated 06/27/21 @ 09:36 by Lexie Lerma) Smoking Status: Never smoker alcohol intake: never substance use type: does not use HPI HPI HPI: ALMA ULLOA, is a 36 F who presents to the office today for surgical consultation regarding removal of her gallbladder and liver biopsy. The patient is referred by Dr. Joe Arias and Isidra Wallace CNP and a written copy of my surgical consult recommendations will return to them. The patient has had a gastroenterology work-up for chronic diarrhea cramping and urgency. She had an upper and lower endoscopy. The lower endoscopy was hampered secondary to a poor bowel prep. Random biopsies were negative. Apparently there is still is concerned about the possibility of lymphocytic colitis as the patient has an elevated CRP and ESR. Her ESR was 32 and CRP 12.8. The patient is being tried on budesonide and dicyclomine. Her upper endoscopy was compromised by a large amount of food residual within the stomach. Duodenal biopsies were unremarkable. Distal esophageal biopsies showed mild chronic inflammation. Investigations previously on November 23, 2020 with an emergency room visit because of the patient's complaint of chest pain shortness of breath and tachycardia a CTA of the chest demonstrated hepatomegaly with fatty infiltration. A more recent right upper quadrant ultrasound performed May 20, 2021 demonstrates an enlarged liver measuring 20.3 cm with fatty infiltration. Gallbladder wall is 2.6 mm. Solitary gallstone measuring 4.4 x 2.5 x 2.2 cm. Common bile duct 3.1 mm. Elastography was also performed. Median liver stiffness measured 4kPa. The patient is being specifically referred for cholecystectomy and liver biopsy. Medical and surgical care are compromised by body habitus of 134 kg and a BMI of 54 She has also been seen in consultation by Dr. Bob Johnson hematology because of abnormal coagulation profile. Her PT deluded is 48.2 with high normal being 47.6. PTT is 36.6 with high normal being 36.2 The patient claims that about every other month or so she will have these attacks of retrosternal discomfort. She states she had one last night. She took Nexium and within about 30 minutes it resolved. She is not sure whether this is related to her (more content not included)... Normal [facility] Gastroenterology Visit Repor ton 06-07-2021 Gastroenterology Visit Report [facility] [address] [place] [address] OFFICE VISIT Date of Service: 06/07/21 MR#: [id number] Acct: [id number] Name: ALMA ULLOA Rep #: [id number] : 1985 Provider: ARLEEN Wallace Age/Sex: 36/F Location: [facility] Status: Signed Intake Intake Visit Reasons: 2 WK FU COLON Allergies No Known Allergies Allergy (Verified 05/23/21 08:17) Medications buspirone 15 mg PO DAILY 11/23/20 [History Confirmed 05/22/21] cetirizine 10 mg PO DAILY 11/23/20 [History Confirmed 05/22/21] cholecalciferol (vitamin D3) [Vitamin D3] 125 mcg PO DAILY 11/23/20 [History Confirmed 05/22/21] escitalopram oxalate 20 mg PO DAILY 11/23/20 [History Confirmed 05/22/21] ibuprofen [IBU] 800 mg PO BID PRN 11/23/20 [History Confirmed 05/22/21] nebivolol [Bystolic] 5 mg PO DAILY 11/23/20 [History Confirmed 05/22/21] semaglutide [Ozempic] 1 mg SUBCUT BERMAN 05/16/21 [History Confirmed 05/22/21] metformin 500 mg tablet ea PO 05/22/21 [History Confirmed 05/22/21] budesonide 3 mg capsule,delayed,extended release 9 mg PO DAILY #90 ea 06/07/21 [Rx Confirmed 06/07/21] dicyclomine 20 mg tablet 20 mg PO TID PRN #90 tab 06/07/21 [Rx Confirmed 06/07/21] PFSH Medical History Anxiety CPAP (continuous positive airway pressure) dependence Depression Diabetes Fatty (change of) liver, not elsewhere classified Gastric reflux Hypertension Migraine headache Non-smoker PCOS (polycystic ovarian syndrome) Pre-diabetes Sleep apnea Wears glasses Family History Father Hypertension CVA (cerebral vascular accident) Mother Hypertension Social History Smoking Status: Never smoker HPI HPI Details: ALMA ULLOA, is a 36 F who presents to the office today for discussion of EGD and colonoscopy results as well as liver elastography She reports lifelong diarrhea. Significantly worse since starting Ozempic 6 months ago. Gets cramps and urgency. Sees undigested food, vegetables. Occas normal BM; this was the case after endoscopies but rarely happens. No relief with loperamide. No hx of rx meds for diarrhea. Her mother was on bentyl, she is interested in trying that. Tried FiberCon x 2 wks w/o relief. EGD: LA grade A esophagitis, large amount of food residue in the stomach. Colonoscopy: Large amount of retained stool, poor visualization. No pathology found on biopsies. Right upper quadrant ultrasound: Liver 20.3 cm with fatty infiltration. 4.4 cm gallstone FibroScan: 4 kPa, F0 Metavir score. ROS Gastro GI: Positive for bloating, diarrhea and heartburn Musc Musculoskeletal: Positive for back pain Psych Psychiatric: Positive for anxiety Exam Const General: cooperative, no acute distress, well developed and well groomed Quality Reporting Tobacco Screening ([facility] 138) Smoking Status: Never smoker Assessment and Plan Assessment and Plan (1) Cholelithiasis: Status: Acute (2) Diarrhea: Status: Acute (3) Fatty liver: Status: Acute (4) Gastroparesis: Status: Acute Orders: Referrals: General Surgery K80.20 Plan: 36-year-old female with chronic diarrhea with cramping and urgency. We discussed her EGD and colonoscopy results. Biopsies on colonoscopy were negative however they might not be reliable due to poor prep; her symptoms along with elevated CRP and ESR indicate the possibility of lymphocytic colitis. She will try budesonide 9 mg daily as well as dicyclomine as needed. We also discussed results from her right upper quadrant ultrasound and liver elastography. We are referring to general surgery for the large gallstone. Dr. Arias requests liver biopsy be done at the time of cholecystectomy if possible; although her FibroScan score is F0, a biopsy will be more reliable. Also discussed gastroparesis. Dr. Arias believes she may have some improvements with gastroparesis due to digestion improving by improvement in poor admixture. Follow-up 6 weeks Plan Details Other Medications: New: dicyclomine 20 mg PO TID PRN 90 tabs 1RF diarrhea and cramps budesonide ER 9 mg (3 x 3 mg) PO DAILY 90 ea 2RF Coding Level of Care Code Off vis,est,level 4 Diagnoses Cholelithiasis K80.20 Diarrhea R19.7 Fatty liver K76.0 Gastroparesis K31.84 06/07/21 1430 Date Isidra Wallace NP ROD BENDING MACHINE OPERATOR-C Cosigner Signature: Date (if applicable) CC: Dr. Odalys Raymond DO Normal [facility] Bedside Glucoseon 05-23-2021 FINGERSTICK GLU 121 mg/dL High 70-110 [facility] Comment on above: Result Comment: LUIS BUNCH OF PATIENT CARE PER NURSING PROTOCOL Performed By: #### P SSII #### [facility] Laboratory [address] [place], [address] Colonoscopy Reporton 021 Colonoscopy Report [facility] Medical Records Department [address] [place] [address] Colonoscopy Report MR#: [id number] Acct: [id number] Name: ALMA ULLOA Rep #: [id number] : 1985 36 From: Joe Arias DO PCP: Dr. Odalys Raymond DO Status:[facility] Patient Name: Alma Ulloa Procedure Date: 05/23/2021 9:07 AM Date of : 1985 Age: 36 Procedure: Colonoscopy Indications: Chronic diarrhea Providers: Joe Arias DO Medicines: See the Anesthesia note for documentation of the administered medications Patient Profile: This is a 36 year old female. Refer to note in patient chart for documentation of history and physical. Patient has symptoms of chronic nausea. Last Colonoscopy: none. The patient's first colonoscopy is today. Complications: No immediate complications. Procedure: Pre-Anesthesia Assessment: - Prior to the procedure, a History and Physical was performed, and patient medications and allergies were reviewed. The risks and benefits of the procedure and the sedation options and risks were discussed with the patient. All questions were answered and informed consent was obtained. Patient identification and proposed procedure were verified by the physician in the pre-procedure area. Mental Status Examination: alert and oriented. Airway Examination: normal oropharyngeal airway and neck mobility. Respiratory Examination: clear to auscultation. CV Examination: normal. Prophylactic Antibiotics: The patient does not require prophylactic antibiotics. Prior Anticoagulants: The patient has taken no previous anticoagulant or antiplatelet agents. ASA Grade Assessment: II - A patient with mild systemic disease. After reviewing the risks and benefits, the patient was deemed in satisfactory condition to undergo the procedure. The anesthesia plan was to use moderate sedation / analgesia (conscious sedation). Immediately prior to administration of medications, the patient was re-assessed for adequacy to receive sedatives. The heart rate, respiratory rate, oxygen saturations, blood pressure, adequacy of pulmonary ventilation, and response to care were monitored throughout the procedure. The physical status of the patient was re-assessed after the procedure. After I obtained informed consent, the scope was passed under direct vision. Throughout the procedure, the patient's blood pressure, pulse, and oxygen saturations were monitored continuously. The pediatric colonoscope was introduced through the anus and advanced to the terminal ileum. The colonoscopy was performed without difficulty. The patient tolerated the procedure well. The quality of the bowel preparation was poor. Moderate Sedation: Moderate (conscious) sedation was administered by the endoscopy nurse and supervised by the endoscopist. The patient's oxygen saturation, heart rate, blood pressure and response to care were monitored. Total physician intraservice time was 15 minutes. Scope In: 9:12:27 AM Scope Withdrawal Time 0 hours 11 minutes 53 seconds Scope Out: 9:28:28 AM Total Procedure Duration Time 0 hours 16 minutes 1 second Findings: The perianal and digital rectal examinations were normal. A large amount of stool was found in the rectum, in the recto-sigmoid colon, in the sigmoid colon, in the descending colon, at the splenic flexure, in the ascending colon and in the cecum, precluding visualization. Lavage of the area was performed using a small amount of sterile water, resulting in incomplete clearance with continued poor visualization. An area of mildly congested mucosa was found in the ascending colon. Biopsies were taken with a cold forceps for histology. Verification of patient identification for the specimen was done. Estimated blood loss was minimal. Impression: - Preparation of the colon was poor. - Stool in the rectum, in the recto-sigmoid colon, in the sigmoid colon, in the descending colon, at the splenic flexure, in the ascending colon and in the cecum. - Congested mucosa in the ascending colon. Biopsied. Recommendation: - Discharge patient to home. - Resume previous diet. - Continue present medications. - Await pathology results. - Repeat colonoscopy in 6 months because the bowel preparation was suboptimal. - Return to GI office in 2 weeks. Procedure Code(s): --- Professional --- 47970, Colonoscopy, flexible; with biopsy, single or multiple 46018, 59, Moderate sedation services provided by the same physician or other qualified health resident caregiver performing the diagnostic or therapeutic service that the sedation supports, requiring the presence of an independent trained observer to assist in the monitoring of the patient's level of consciousness and physiological status; initial 15 minutes of intraservice time, patient age 5 years (more content not included)... Normal [facility] EGD Reporton 05-23-2021 EGD Report [facility] Medical Records Department [address] [place] [address] EGD Report MR#: [id number] Acct: [id number] Name: ALMA ULLOA Rep #: [id number] : 1985 36 From: Joe Arias DO PCP: Dr. Odalys Raymond DO Status:[facility] Patient Name: Alma Ulloa Procedure Date: 05/23/2021 8:47 AM Date of : 1985 Age: 36 Procedure: Upper GI endoscopy Indications: Dyspepsia Providers: Joe Arias DO Medicines: See the Anesthesia note for documentation of the administered medications Patient Profile: This is a 36 year old female. Refer to note in patient chart for documentation of history and physical. Patient has symptoms of chronic nausea. Complications: No immediate complications. Procedure: Pre-Anesthesia Assessment: - Prior to the procedure, a History and Physical was performed, and patient medications and allergies were reviewed. The risks and benefits of the procedure and the sedation options and risks were discussed with the patient. All questions were answered and informed consent was obtained. Patient identification and proposed procedure were verified by the physician in the pre-procedure area. Mental Status Examination: alert and oriented. Airway Examination: normal oropharyngeal airway and neck mobility. Respiratory Examination: clear to auscultation. CV Examination: normal. Prophylactic Antibiotics: The patient does not require prophylactic antibiotics. Prior Anticoagulants: The patient has taken no previous anticoagulant or antiplatelet agents. ASA Grade Assessment: II - A patient with mild systemic disease. After reviewing the risks and benefits, the patient was deemed in satisfactory condition to undergo the procedure. The anesthesia plan was to use moderate sedation / analgesia (conscious sedation). Immediately prior to administration of medications, the patient was re-assessed for adequacy to receive sedatives. The heart rate, respiratory rate, oxygen saturations, blood pressure, adequacy of pulmonary ventilation, and response to care were monitored throughout the procedure. The physical status of the patient was re-assessed after the procedure. After obtaining informed consent, the endoscope was passed under direct vision. Throughout the procedure, the patient's blood pressure, pulse, and oxygen saturations were monitored continuously. The Endoscope was introduced through the mouth, and advanced to the second part of duodenum. The upper GI endoscopy was accomplished without difficulty. The patient tolerated the procedure well. Moderate Sedation: Moderate (conscious) sedation was administered by the endoscopy nurse and supervised by the endoscopist. The patient's oxygen saturation, heart rate, blood pressure and response to care were monitored. Total physician intraservice time was 15 minutes. Scope In: 9:00:54 AM Scope Out: 9:05:33 AM Total Procedure Duration Time 0 hours 4 minutes 39 seconds Findings: LA Grade A (one or more mucosal breaks less than 5 mm, not extending between tops of 2 mucosal folds) esophagitis with no bleeding was found 34 to 35 cm from the incisors. Biopsies were taken with a cold forceps for histology. Verification of patient identification for the specimen was done. Estimated blood loss was minimal. A large amount of food (residue) was found in the entire examined stomach. Scattered moderate inflammation characterized by congestion (edema) was found in the duodenal bulb, in the first portion of the duodenum and in the second portion of the duodenum. Biopsies were taken with a cold forceps for histology. Verification of patient identification for the specimen was done. Estimated blood loss was minimal. Biopsies were taken with a cold forceps for histology. Verification of patient identification for the specimen was done. Impression: - LA Grade A reflux esophagitis. Biopsied. - A large amount of food (residue) in the stomach. Recommendation: - Written discharge instructions were provided to the patient. - The signs and symptoms of potential delayed complications were discussed with the patient. - Patient has a contact number available for emergencies. - Return to normal activities tomorrow. - Resume previous diet. - Continue present medications. - Await pathology results. - Repeat upper endoscopy in 1 year for surveillance. - Return to GI clinic in 2 weeks. Procedure Code(s): --- Professional --- 15252, 59, Esophagogastroduodenosco py, flexible, transoral; with biopsy, single or multiple 52856, 59, Moderate sedation services provided by the same physician or other qualified health resident caregiver performing the diagnostic or therapeutic service that the sedation supports, requiring the presence of an independent trained observer to assist in the monitori (more content not included)... Normal [facility] ,Urineon 05-23-2021 Beta HCG ( test) Ql (U) Negative Normal [facility] Comment on above: Result Comment: Very dilute urine specimens, as indicated by a low specific gravity, may not contain textile machinery sales representative levels of hCG. If is still suspected, a first morning urine specimen should be collected 48 hours later and tested. Performed By: #### P SSII #### [facility] Laboratory [address] [place], [address] Special Stain Group IIon Special Stain Group II OPERATION: Colonoscopy, EGD ([facility]) PRE-OP DIAGNOSIS: Diarrhea, fatty liver TISSUE SUBMITTED: A ??? Duodenum biopsy, B ??? Distal esophagus biopsy, C ??? Random colonic biopsy A. Duodenum, biopsy: Fragments of duodenal mucosa, no pathologic diagnosis. B. Distal esophagus, biopsy: Fragments of gastroesophageal mucosa with mild chronic inflammation. Intestinal metaplasia (goblet cell metaplasia) not identified. See comment. C. Colon, random biopsy: Fragments of colonic mucosa, no pathologic diagnosis. SJ:noam 05/27/2021 B. Alcian blue/PAS stain with matched control is used in the evaluation of the specimen. Slides are reviewed. A - Received in fixative is one container labeled with the patient's name and designated duodenum biopsy. The specimen consists of two irregular fragments of light davila soft tissue that in aggregate measure 0.4 x 0.2 x 0.1 cm. The specimen is totally submitted in one cassette. B - Received in fixative is one container labeled with the patient's name and designated distal esophagus biopsy. The specimen consists of two irregular fragments of light davila soft tissue that in aggregate measure 0.5 x 0.5 x 0.1 cm. The specimen is totally submitted in one cassette. C - Received in fixative is one container labeled with the patient's name and designated random colonic biopsy. The specimen consists of multiple irregular fragments of light davila soft tissue that in aggregate measure 2 x 0.7 x 0.1 cm. The specimen is totally submitted in one cassette. / SJ:rg 05/23/21 TC:3 CPT: 55808 x3, [address]31 Signed (signature on file) Dr. Sacha Trevizo MD 05/27/21 1111 Normal [facility] Comment on above: Performed By: #### P SSII #### [facility] Laboratory [address] [place], [place], [address] Oncology Visit Report 04-25 Oncology Visit Report [facility] [place] [place] [address] OFFICE VISIT Date of Service: 05/22/21 1527 MR#: [id number] Acct: [id number] Name: ALMA ULLOA Rep #: [id number] : 1985 From: Bob Johnson MD Age/Sex: 36/F Location: [facility] Status: Signed HPI Subjective Date of Service 05/22/21 Chief Complaint Referred for abnormal coagulation. History of Present Illness 36y.o.woman was found to have abnormal coagulation, DRVV was 53 on 04/26/2021 so referred for further evaluation. [facility] Medical History Anxiety CPAP (continuous positive airway pressure) dependence Depression Diabetes Fatty (change of) liver, not elsewhere classified Gastric reflux Hypertension Migraine headache Non-smoker PCOS (polycystic ovarian syndrome) Pre-diabetes Sleep apnea Wears glasses Family History Father Hypertension CVA (cerebral vascular accident) Mother Hypertension Social History Smoking Status: Never smoker ROS Constitutional Constitutional: Reports systems reviewed and no addt'l complaints, except as documented Eyes Eyes: Reports systems reviewed and no addt'l complaints, except as documented ENT HEENT: Reports systems reviewed and no addt'l complaints, except as documented Cardiovascular Cardiovascular: Reports systems reviewed and no addt'l complaints, except as documented Respiratory/Chest Respiratory/Chest: Reports systems reviewed and no addt'l complaints, except as documented Gastrointestinal Gastrointestinal: Reports systems reviewed and no addt'l complaints, except as documented Genitourinary Genitourinary: Reports systems reviewed and no addt'l complaints, except as documented Musculoskeletal Musculoskeletal: Reports systems reviewed and no addt'l complaints, except as documented Integumentary Integumentary: Reports systems reviewed and no addt'l complaints, except as documented Neurologic Neurologic: Reports systems reviewed and no addt'l complaints, except as documented Psychiatric Psychiatric: Reports systems reviewed and no addt'l complaints, except as documented Endocrine Endocrinology: Reports systems reviewed and no addt'l complaints, except as documented Hematologic/Lymphatic Hematologic/Lymphatic: Reports systems reviewed and no addt'l complaints, except as documented Allergic/Immunologic Allergic/Immunologic: Reports systems reviewed and no addt'l complaints, except as documented Intake Vital Signs 05/22/21 15:27 Height 5 ft 2 in Weight: 134.008 kg BMI 54.0 BP 110/65 Blood Pressure Location Lt femoral Position Sitting Respiration 17 Pulse 65 Pulse Source Monitor Temp 98.2 F Temperature Source Temporal Artery Pulse Oximetry (%) 98 Oxygen Delivery Method room air Intake Education And Development Manager Required: No Accompanied by: Self Is patient in pain?: No Allergies No Known Allergies Allergy (Verified 05/22/21 15:33) Medications buspirone 15 mg PO DAILY 11/23/20 [History Confirmed 05/22/21] cetirizine 10 mg PO DAILY 11/23/20 [History Confirmed 05/22/21] cholecalciferol (vitamin D3) [Vitamin D3] 125 mcg PO DAILY 11/23/20 [History Confirmed 05/22/21] escitalopram oxalate 20 mg PO DAILY 11/23/20 [History Confirmed 05/22/21] ibuprofen [IBU] 800 mg PO BID PRN 11/23/20 [History Confirmed 05/22/21] nebivolol [Bystolic] 5 mg PO DAILY 11/23/20 [History Confirmed 05/22/21] bisacodyl 5 mg tablet,delayed release 5 mg PO ONCE #4 tab 04/26/21 [Rx Confirmed 05/22/21] polyethylene glycol 3350 17 gram/dose oral powder 17 g PO DAILY #238 g 04/26/21 [Rx Confirmed 05/22/21] semaglutide [Ozempic] 1 mg SUBCUT BERMAN 05/16/21 [History Confirmed 05/22/21] metformin 500 mg tablet ea PO 05/22/21 [History Confirmed 05/22/21] Central Venous Access Central Venous Access: No Laboratory Tests 04/26/21 14:35 PT Diluted 48.2 H PT Ratio 0.94 Thrombin Time 17.5 Lupus Anticoag aPTT 45.5 Dil Dinh Viper Venom 53.6 H Free Protein S 122 Total Protein S 109 Func Antithrombin III 88 Factor V Leiden Mutat Comment Exam Physical Exam Const alert, oriented x3, no apparent distress and average body habitus General Appearance: cooperative and comfortable Eyes conjunctivae normal and no scleral icterus Neck supple Lymph Lymphatic: no lymphadenopathy noted Chest inspection of chest normal Resp normal respiratory effort and clear to auscultation bilaterally Cardio regular rate, regular rhythm, S1 normal heart sound, S2 normal heart sound and no murmurs GI normal to inspection, nondistended, normoactive bowel sounds Back/Spine no CVA tenderness and thoracic and lumbar spine normal to inspection (more content not included)... Normal [facility] Blood Glucose , Office (2696 2)Ordered By: Muna Singh on 05-20-2021 Glucose Glucometer (BldC) [Moles/Vol] 130 1 Normal [facility]; [facility] Work Phone: CALCIFIDIOL ([phone]) VIT D 25 Ordered By: Sales Agent Insurance on 05-20-2021 25-hydroxyvitamin D [Mass/Vol] 47.8 ng/mL Normal 30.0-100.0 [facility]; [facility] Work Phone: Comment on above: Vitamin D deficiency has been defined by the [place] of[employer] and an Endocrine Society practice guideline as alevel of serum 25-OH vitamin D less than 20 ng/mL (1,2).The Endocrine Society went on to further define vitamin Dinsufficiency as a level between 21 and 29 ng/mL (2).1. IOM ([place] of [employer]). 2010. Dietary reference intakes for calcium and D. [place]: The National Academies Press.2. Henok MF, Sara NC, Jessica PHILLIP, et al. Evaluation, treatment, and prevention of vitamin D deficiency: an Endocrine Society clinical practice guideline. JCEM. 2010; 96(7):1911-30. PATIENT NOT FASTINGP ERFORMED BY: [facility] [id number] [facility] [id number] HgA1C , Office ([id number])Ordere d By: Muna Singh on 05-20-2021 HbA1c (Bld) [Mass fraction] 6.0 % Normal 4.6 - 7.1 [facility]; [facility] Work Phone: Liveron 05-20-2021 Liver [facility] Imaging Services [address] [place] [address] Liver MR#: [id number] Acct: [id number] Name: ALMA ULLOA Rep #: [id number] : 1985 F 36 From: Vincent arias MD PCP: Dr. Odalys Raymond DO Status: [facility] Study: Liver Date of Exam: 05/20/21 Exam# [id number] Ordering Dr: Joe Arias DO ADDENDUM by Dr. Vincent Pickard MD on 05/27/21 at 0855 STUDY: ABDOMINAL ULTRASOUND - RIGHT UPPER QUADRANT REASON FOR VISIT: Female, 36 years old fatty liver -- ELASTOGRAPHY ALSO DONE TODAY TECHNIQUE: Ultrasound evaluation of the right upper quadrant was performed with real-time and static winslow-scale imaging. TECHNICAL QUALITY: Adequate. COMPARISON: None. FINDINGS: Liver: The liver is enlarged and measures 20.3 cm. There is increased echogenicity consistent with fatty infiltration. Focal fatty sparing is seen adjacent to the gallbladder fossa. Tithe bile ducts are within normal limits. There is hepatic color flow. The direction of portal flow is hepatopetal. There is no demonstrated mass lesion. Gallbladder: Normal distended gallbladder. The gallbladder wall measures 2.6 mm. There is a negative sonographic Collins''s sign. There is no pericholecystic fluid. There is a solitary echogenic gallstone within the gallbladder. This measures 4.4 cm x 2.5 cm x 2.2 cm. Common Bile Duct (C.B.D.): The common bile duct measures 3.1 mm. Pancreas: Normal size of the head, body and tail of the pancreas. There is increased echogenicity of the pancreas. There is no demonstrated pancreatic mass or cyst. Right Kidney: Normal size of the right kidney. The right kidney measures 12.3 cm x 7.1 cm x 4.4 cm. Normal renal cortex. The right cortex measures 1.9 cm. There is no demonstrated renal mass or cyst. There is no right hydronephrosis. IMPRESSION: Hepatomegaly. Fatty infiltration the liver with focal fatty sparing along the gallbladder fossa. Large solitary gallstone. Electronically Signed: Vincent Pickard MD at 8:53 EST , Service support , STUDY: ABDOMINAL ULTRASOUND - ELASTOGRAPHY REASON FOR VISIT: Female, 36 years old. Fatty infiltration of the liver. Hepatomegaly. TECHNIQUE: Liver stiffness measurements were obtained on a Yvolver 85 ultrasound machine using a CA 1-7 probe following the SRU guidelines. 3 measurements were obtained using a 2-D-SWE method. The IQR/M was 24% suggesting a quality data set. TECHNICAL QUALITY: Adequate. COMPARISON: Comparison is made with prior sonogram of the right upper quadrant earlier today. FINDINGS: Liver: Hepatomegaly with fatty infiltration of the liver. Median liver stiffness measured 4 kPa. 05/27/21 0855 Date cc: Dr. Odalys Raymond DO; Joe Arias, DO * Signed ADDENDUM by Dr. Vincent Pickard MD on 05/27/21 at 0855 US/Liver IMPRESSION: Liver stiffness measures 4 kPa compatible with F0 Metavir score. Electronically Signed: Vincent Pickard MD at 8:55 EST , Service support , 05/27/21 1127 Date cc: Dr. Odalys Raymond DO; Joe Arias, DO * Signed STUDY: ABDOMINAL ULTRASOUND - RIGHT UPPER QUADRANT REASON FOR VISIT: Female, 36 years old fatty liver -- ELASTOGRAPHY ALSO DONE TODAY TECHNIQUE: Ultrasound evaluation of the right upper quadrant was performed with real-time and static winslow-scale imaging. TECHNICAL QUALITY: Adequate. COMPARISON: None. FINDINGS: Liver: The liver is enlarged and measures 20.3 cm. There is increased echogenicity consistent with fatty infiltration. Focal fatty sparing is seen adjacent to the gallbladder fossa. Tithe bile ducts are within normal limits. There is hepatic color flow. The direction of portal flow is hepatopetal. There is no demonstrated mass lesion. Gallbladder: Normal distended gallbladder. The gallbladder wall measures 2.6 mm. There is a negative sonographic Collins''s sign. There is no pericholecystic fluid. There is a solitary echogenic gallstone within the gallbladder. This measures 4.4 cm x 2.5 cm x 2.2 cm. Common Bile Duct (C.B.D.): The common bile duct measures 3.1 mm. Pancreas: Normal size of the head, body and tail of the pancreas. There is increased echogenicity of the pancreas. There is no demonstrated pancreatic mass or cyst. Right Kidney: Normal size of the right kidney. The right kidney measures 12.3 cm x 7.1 cm x 4.4 cm. Normal renal cortex. The right cortex measures 1.9 cm. There is no demonstrated renal mass or cyst. There is no right hydronephrosis. (more content not included)... Normal [facility] METABOLIC PANEL, COMPREHENSI VE ([id number])Ordered By: Sales Agent Insurance on 05-20-2021 Albumin [Mass/Vol] 4.2 g/dL Normal 3.8-4.8 [facility]; [facility] Work Phone: Comment on above: PATIENT NOT FASTINGP ERFORMED BY: [id number] [facility] [id number] Albumin/Globulin [Mass ratio] 1.4 {ratio} Normal 1.2-2.2 [facility]; [facility] Work Phone: Comment on above: PATIENT NOT FASTINGP ERFORMED BY: [id number] [facility] [id number] ALP [Catalytic activity/Vol] 82 U/L Normal 44-121 [facility]; [facility] Work Phone: Comment on above: Please note refere nce interval change PATIENT NOT FASTINGP ERFORMED BY: CB [facility] Sufhgq0897 [address]Dublin [place] [id number] ALT [Catalytic activity/Vol] 26 U/L Normal 0-32 [facility]; [facility] Work Phone: Comment on above: PATIENT NOT FASTINGP ERFORMED BY: CB [facility] Yrtbkr2612 [address] RoadDublin [place] [id number] AST [Catalytic activity/Vol] 17 U/L Normal 0-40 [facility]; [facility] Work Phone: Comment on above: PATIENT NOT FASTINGP ERFORMED BY: CB [facility] Kurkdl6418 [address] RoadDublin [place] [id number] Bilirubin [Mass/Vol] 0.2 mg/dL Normal 0.0-1.2 Comp rehensive [facility]; [facility] Work Phone: Comment on above: PATIENT NOT FASTINGP ERFORMED BY: CB [facility] Bzuzkx6297 [address]Dublin [place] [id number] Calcium [Mass/Vol] 9.4 mg/dL Normal 8.7-10.2 [facility]; [facility] Work Phone: Comment on above: PATIENT NOT FASTINGP ERFORMED BY: CB [facility] Ngoosy8874 [address] RoadDublin [place] [id number] Chloride [Moles/Vol] 102 mmol/L Normal 96-106 Comp [facility]eren[facility]; [facility] Work Phone: Comment on above: PATIENT NOT FASTINGP ERFORMED BY: CB [facility] Byqfcc1291 [address]Dublin [place] [id number] CO2 [Moles/Vol] 22 mmol/L Normal 20-29 [facility]; [facility] Work Phone: Comment on above: PATIENT NOT FASTINGP ERFORMED BY: CB [facility] Srlxlb6798 [address] RoadDublin [place] [id number] Creatinine [Mass/Vol] 0.74 mg/dL Normal 0.57-1.00 [facility]; [facility] Work Phone: Comment on above: PATIENT NOT FASTINGP ERFORMED BY: [facility] [place] [id number] GFR/1.73 sq M.predicted among blacks CKD-EPI (S/P/Bld) [Vol rate/Area] 121 mL/min/1.73 Normal [facility]; [facility] Work Phone: Comment on above: In accordance with recommendations from the NKF-ASN Task force, [facility] is in the process of updating its eGFR calculation to the 2020 CKD-EPI creatinine equation that estimates kidney function without a race variable. PATIENT NOT FASTINGP ERFORMED BY: [facility] Soto[address] [facility] [id number] GFR/1.73 sq M.predicted among non-blacks CKD-EPI (S/P/Bld) [Vol rate/Area] 105 mL/min/1.73 Normal [facility]; [facility] Work Phone: Comment on above: PATIENT NOT FASTINGP ERFORMED BY: [facility] Soto6370 [facility] [id number] Globulin (S) [Mass/Vol] 3.0 g/dL Normal 1.5-4.5 [facility]; [facility] Work Phone: Comment on above: PATIENT NOT FASTINGP ERFORMED BY: [facility] Soto6370 [facility] [id number] Glucose [Mass/Vol] 100 mg/dL Abnormal 65-99 [facility]; [facility] Work Phone: Comment on above: PATIENT NOT FASTINGP ERFORMED BY: [facility] Soto6370 [facility] [id number] Potassium [Moles/Vol] 4.2 mmol/L Normal 3.5-5.2 [facility]; [facility] Work Phone: Comment on above: PATIENT NOT FASTINGP ERFORMED BY: NIMCO Hayeslin6370 [facility] [id number] Protein [Mass/Vol] 7.2 g/dL Normal 6.0-8.5 [facility]; [facility] Work Phone: Comment on above: PATIENT NOT FASTINGP ERFORMED BY: NIMCO Labrosalinda HayesZtsvxx3632 Me[address] RoadDublin [place] [id number] Sodium [Moles/Vol] 138 mmol/L Normal 134-144 [facility]; [facility] Work Phone: Comment on above: PATIENT NOT FASTINGP ERFORMED BY: NIMCO [facility] Cuadwf5143 [address] RoadDublin [place] [id number] Urea nitrogen [Mass/Vol] 15 mg/dL Normal 6-20 [facility]; [facility] Work Phone: Comment on above: PATIENT NOT FASTINGP ERFORMED BY: NIMCO Labsharadderic HayesTxdjve6107 [address]Dublin [place] [id number] Urea nitrogen/Creatinine [Mass ratio] 20 mg/mg Normal 9-23 [facility]; [facility] Work Phone: Comment on above: PATIENT NOT FASTINGP ERFORMED BY: NIMCO Labsharad Mhsnnl7292 [address] RoadDublin [place] [id number] MICROALBUMINOrdered By: Syst em Pipe Coverer And Insulator on 05-20-2021 Albumin DL <= 20 mg/L (U) [Mass/Vol] 6.0 ug/mL Normal Comprehensiv e [facility]; [facility] Work Phone: Comment on above: PATIENT NOT FASTINGP ERFORMED BY: CB [facility] Bvngsi3595 [address]Dublin [place] [id number] Albumin/Creatinine (U) [Mass ratio] 5 {mg/g_creat} Normal 0-29 [facility]; [facility] Work Phone: Comment on above: Normal: 0 - 29 Moder ately increased: 30 - 300 Severely increased: >300 PATIENT NOT FASTINGP ERFORMED BY: NIMCO [facility] Uwhdti0212 [address]Dublin [place] [id number] Creatinine (U) [Mass/Vol] 128.1 mg/dL Normal [facility]; [facility] Work Phone: Comment on above: PATIENT NOT FASTINGP ERFORMED BY: [facility] Njuwpi[address] EmerGeo Solutionsblin [place] [id number] TSH ([id number])Ordered By: Glamite m Pipe Coverer And Insulator on 05-20-2021 TSH Qn 0.925 {uIU/mL} Normal 0.450-4.500 [facility]; [facility] Work Phone: Comment on above: PATIENT NOT FASTINGP ERFORMED BY: CB [facility] Qwsnti6428 [address] RoadDublin [place] [id number] VITAMIN B-12 (CYANOCOBALAMIN ) (27310)Ordered By: Sales Agent Insurance on 05-20-2021 Cobalamin (Vitamin B12) [Mass/Vol] 259 pg/mL Normal 232-1245 [facility]; [facility] Work Phone: Comment on above: PATIENT NOT FASTINGP ERFORMED BY: CB [facility] Wkemfw[address] [facility]in [place] [id number] ANCAon 05-03-2021 Atypical pANCA <1:20 Normal Neg:<1:20 [facility] Comment on above: Order Comment: Test( s) 561804-Yiodyo, Serum or Plasmawas developed and its performance characteristicsdetermined by Oscar. It has not been cleared or approvedby the Food and Drug Administration.BILL comprehensive Result Comment: The atypical pANCA pattern has been observed in a significant percentage of patients with ulcerative colitis, primary sclerosing cholangitis and autoimmune hepatitis. Performed By: #### L 3890.6100, L3890.6300, L509.8000, L3890.6005, L3400.1610 #### [facility] [address] [place], [address] Perinuclear Ab. <1:20 Normal Neg:<1:20 [facility] Comment on above: Order Comment: Test( s) 661761-Defmut, Serum or Plasmawas developed and its performance characteristicsdetermined by Oscar. It has not been cleared or approvedby the Food and Drug Administration.BILL comprehensive Result Comment: The presence of positive fluorescence exhibiting P-ANCA or C-ANCA patterns alone is not specific for the diagnosis of [place]'s Granulomatosis (WG) or microscopic polyangiitis. Decisions about treatment should not be based solely on ANCA IFA results. The International ANCA Group Consensus recommends follow up testing of positive sera with both WI- 3 and MPO-ANCA enzyme immunoassays. As many as 5% serum samples are positive only by EIA. Ref. AM J Clin Pathol 1999;111:507-513. Performed By: #### L 3890.6100, L3890.6300, L509.8000, L3890.6005, L3400.1610 #### [facility] [address] [place], [place], [id number] (182) Cytoplasmic Ab <1:20 Normal Neg:<1:20 [facility] Comment on above: Order Comment: Test( s) 196217-Ngbjbq, Serum or Plasmawas developed and its performance characteristicsdetermined by Oscar. It has not been cleared or approvedby the Food and Drug Administration.BILL comprehensive Performed By: #### L 3890.6100, L3890.6300, L509.8000, L3890.6005, L3400.1610 #### [facility] [address] [place], [place], [id number] Angiotensin Convert Enzymeon 05-03-2021 ANGIOT-CONV.ENZ 18 U/L Normal 14-82 [facility] Comment on above: Order Comment: Test( s) 099626-Xqwgbj, Serum or Plasmawas developed and its performance characteristicsdetermined by Oscar. It has not been cleared or approvedby the Food and Drug Administration.BILL comprehensive Performed By: #### L 3890.6100, L3890.6300, L509.8000, L3890.6005, L3400.1610 #### [facility] [address] [place], [place], [id number] Anti-Smooth Muscle ABSon ANTISMOOTH MUSC 8 Units Normal 0-19 [facility] Comment on above: Order Comment: Test( s) 931223-Mjekui, Serum or Plasmawas developed and its performance characteristicsdetermined by Oscar. It has not been cleared or approvedby the Food and Drug Administration.BILL comprehensive Result Comment: Nega tive 0 - 19 Weak positive 20 - 30 Moderate to strong positive >30 Actin Antibodies are found in 52-85% of patients with autoimmune hepatitis or chronic active hepatitis and in 22% of patients with primary biliary cirrhosis. Performed By: #### L 3890.6100, L3890.6300, L509.8000, L3890.6005, L3400.1610 #### [facility] [address] [place], [address] Antithrombin 3 Functionon AT3 FUNCTIONAL 88 Normal 75-135 [facility] Comment on above: Order Comment: Test( s) 549247-Hncagw, Serum or Plasmawas developed and its performance characteristicsdetermined by Oscar. It has not been cleared or approvedby the Food and Drug Administration.BILL comprehensive Result Comment: Dire ct Xa inhibitor anticoagulants such as rivaroxaban, apixaban and edoxaban will lead to spuriously elevated antithrombin activity levels possibly masking a deficiency. Performed at: - [facility] [id number] Program Architect: Kita Suarez MD, Phone: [phone] Performed at: [address] [id number] Program Architect: Sanjeev Mendenhall PhD, Phone: [phone] Performed at: [facility] [id number] Program Architect: Thais Lynn [facility], Phone: [phone] Performed By: #### L 3890.6100, L3890.6300, L509.8000, L3890.6005, L3400.1610 #### [facility] [address] [place], [address] Celiac Disease Profileon tTG IGA <2 Normal 0-3 [facility] Comment on above: Order Comment: Test( s) 230252-Vkdmze, Serum or Plasmawas developed and its performance characteristicsdetermined by Oscar. It has not been cleared or approvedby the Food and Drug Administration.BILL fernandes Result Comment: Nega tive 0 - 3 Weak Positive 4 - 10 Positive >10 Tissue Transglutaminase (tTG) has been identified as the endomysial antigen. Studies have demonstr- ated that endomysial IgA antibodies have over 99% specificity for gluten sensitive enteropathy. Performed By: #### L 3890.6100, L3890.6300, L509.8000, L3890.6005, L3400.1610 #### [facility] [address] [place], [place], [id number] ENDOMYSIAL IGA Negative Normal Negative [facility] Comment on above: Order Comment: Test( s) 477711-Ekwflw, Serum or Plasmawas developed and its performance characteristicsdetermined by Oscar. It has not been cleared or approvedby the Food and Drug Administration.BILL comprehensive Performed By: #### L 3890.6100, L3890.6300, L509.8000, L3890.6005, L3400.1610 #### [facility] [address] [place], [place], [id number] IMMUNOGLOB A QN 129 mg/dL Normal 87-352 [facility] Comment on above: Order Comment: Test( s) 389854-Kwmkhh, Serum or Plasmawas developed and its performance characteristicsdetermined by Oscar. It has not been cleared or approvedby the Food and Drug Administration.BILL comprehensive Performed By: #### L 3890.6100, L3890.6300, L509.8000, L3890.6005, L3400.1610 #### [facility] [address] [place], [place], [id number] Ceruloplasminon 05-03-2021 CERULOPLASMIN 29.8 mg/dL Normal 19.0-39.0 [facility] Comment on above: Order Comment: Test( s) 547827-Bkoohe, Serum or Plasmawas developed and its performance characteristicsdetermined by [facility]. It has not been cleared or approvedby the Food and Drug Administration.BILL comprehensive Performed By: #### L 3890.6100, L3890.6300, L509.8000, L3890.6005, L3400.1610 #### [facility] [address] [place], [place], [id number] (849) Copper, Serum or Plasmaon COPPER, SERUM 146 ug/dL Normal 80-158 [facility] Comment on above: Order Comment: Test( s) 895027-Ksjxrt, Serum or Plasmawas developed and its performance characteristicsdetermined by [employer]. It has not been cleared or approvedby the Food and Drug Administration.BILL comprehensive Result Comment: Dete ction Limit = 5 Performed By: #### L 3890.6100, L3890.6300, L509.8000, L3890.6005, L3400.1610 #### [facility] [address] [place], [place], [id number] (602) EBV Acute Prof IgG / IgMon 1 07-04-2020 EB Ab VCA, IgG 216.0 U/mL High 0.0-17.9 [facility] Comment on above: Order Comment: Test( s) 698973-Foiwtz, Serum or Plasmawas developed and its performance characteristicsdetermined by [employer]. It has not been cleared or approvedby the Food and Drug Administration.BILL comprehensive Result Comment: Nega tive <18.0 Equivocal 18.0 - 21.9 Positive >21.9 Performed By: #### L 3890.6100, L3890.6300, L509.8000, L3890.6005, L3400.1610 #### [facility] [address] [place], [place], [id number] (426) EBV Ab VCA, IgM < 36.0 Normal 0.0-35.9 [facility] Comment on above: Order Comment: Test( s) 499948-Eccwme, Serum or Plasmawas developed and its performance characteristicsdetermined by [facility]. It has not been cleared or approvedby the Food and Drug Administration.BILL comprehensive Result Comment: Nega tive <36.0 Equivocal 36.0 - 43.9 Positive >43.9 Performed By: #### L 3890.6100, L3890.6300, L509.8000, L3890.6005, L3400.1610 #### [facility] [address] [place], [place], [address] EBV NuAg Ab,IgG > 600.0 High 0.0-17.9 [facility] Comment on above: Order Comment: Test( s) 518771-Utafod, Serum or Plasmawas developed and its performance characteristicsdetermined by [facility]. It has not been cleared or approvedby the Food and Drug Administration.BILL comprehensive Result Comment: Nega tive <18.0 Equivocal 18.0 - 21.9 Positive >21.9 Performed By: #### L 3890.6100, L3890.6300, L509.8000, L3890.6005, L3400.1610 #### [facility] [address] [place], [place], [id number] INTERPRETATION Comment Normal . [facility] Comment on above: Order Comment: Test( s) 220133-Krwshh, Serum or Plasmawas developed and its performance characteristicsdetermined by [facility]. It has not been cleared or approvedby the Food and Drug Administration.BILL comprehensive Result Comment: EBV Interpretation Chart Smith: Antibody Present + Antibody Absent - Interpretation VCA-IgM VCA-IgG EBNA-IgG No previous infection/ - - - Susceptible Primary infection (new + + - or recent) Past Infection +or- + + See comment below* + - - *Results indicate infection with EBV at some time however cannot predict the timing of the infection since antibodies to EBNA usually develop after primary infection or, alternatively, approximately 5-10% of patients with EBV never develop antibodies to EBNA. Performed By: #### L 3890.6100, L3890.6300, L509.8000, L3890.6005, L3400.1610 #### [facility] [address] [place], [place], [id number] Fact V Leiden Mutationon FACTOR V LEIDEN Comment Normal . [facility] Comment on above: Order Comment: Test( s) 052893-Tqwyvm, Serum or Plasmawas developed and its performance characteristicsdetermined by [facility]. It has not been cleared or approvedby the Food and Drug Administration.BILL comprehensive Result Comment: Resu lt: Negative (no mutation found) Factor V Leiden is a specific mutation (R506Q) in the factor V gene that is associated with an increased risk of venous thrombosis. Factor V Leiden is more resistant to inactivation by activated protein C. As a result, factor V persists in the circulation leading to a mild hyper- coagulable state. The Leiden mutation accounts for 90% - 95% of APC resistance. Factor V Leiden has been reported in patients with deep vein thrombosis, pulmonary embolus, central retinal vein occlusion, cerebral sinus thrombosis and hepatic vein thrombosis. Other risk factors to be considered in the workup for venous thrombosis include the [id number] mutation in the factor II (prothrombin) gene, protein S and C deficiency, and antithrombin deficiencies. Anticardiolipin antibody and lupus anticoagulant analysis may be appropriate for certain patients, as well as homocysteine levels. Contact your local [facility] for information on how to order additional testing if desired. Genetic counselors are available for health care providers to discuss results at [phone]). Methodology: DNA analysis of the Factor V gene was performed by allele- specific PCR. The diagnostic sensitivity and specificity is >99% for both. Molecular-based testing is highly accurate, but as in any laboratory test, diagnostic errors may occur. All test results must be combined with clinical information for the most accurate interpretation. This test was developed and its performance characteristics determined by [facility]. It has not been cleared or approved by the Food and Drug Administration. References: Mahad Tidwell (1995). Clin Lab Med 16:169-186. Ok Parker, PhD, [facility] Chelly Mcgill, PhD, [facility] Bob Adkins, PhD, [employer]AC[employer] Bryant Aden, PhD, [employer] Poncho Grace, PhD, FAC Erika De Leon, PhD, FAC Performed By: #### L 3890.6100, L3890.6300, L509.8000, L3890.6005, L3400.1610 #### [facility] [address] [place], [address] Immunoglobulin Olvin 1 IMMUNOGLOB E QN 3 IU/mL Low 6-495 [facility] Comment on above: Order Comment: Test( s) 771612-Uhbewf, Serum or Plasmawas developed and its performance characteristicsdetermined by [facility]. It has not been cleared or approvedby the Food and Drug Administration.BILL comprehensive Performed By: #### L 3890.6100, L3890.6300, L509.8000, L3890.6005, L3400.1610 #### [facility] [address] [place], [address] Immunoglobulin Gelacio 1 IMMUNOGLOB G QN 1358 mg/dL Normal 586-1602 [facility] Comment on above: Order Comment: Test( s) 943404-Hvfcfx, Serum or Plasmawas developed and its performance characteristicsdetermined by [facility]. It has not been cleared or approvedby the Food and Drug Administration.BILL comprehensive Performed By: #### L 3890.6100, L3890.6300, L509.8000, L3890.6005, L3400.1610 #### [facility] [address] [place], [address] Immunoglobulin Mon 1 IMMUNOGLOB M QN 54 mg/dL Normal 26-217 [facility] Comment on above: Order Comment: Test( s) 355341-Oxhenw, Serum or Plasmawas developed and its performance characteristicsdetermined by [facility]. It has not been cleared or approvedby the Food and Drug Administration.BILL comprehensive Performed By: #### L 3890.6100, L3890.6300, L509.8000, L3890.6005, L3400.1610 #### [facility] [address] [place], [address] Lupus Anticoagulant Compon 1 07-04-2020 Interpretation Comment: Normal . [facility] Comment on above: Order Comment: Test( s) 437196-Zdkjaj, Serum or Plasmawas developed and its performance characteristicsdetermined by [facility]. It has not been cleared or approvedby the Food and Drug Administration.BILL fernandes Result Comment: Resu lts are consistent with the presence of a lupus anticoagulant. As only persistent lupus anticoagulant (LA) positivity meets laboratory diagnostic criteria for antiphospholipid syndrome, repeat testing in 12 or more weeks is recommended, ideally in the absence of anticoagulant therapy. Important Note: The results of LA testing are not valid for patients receiving heparin, direct Xa inhibitor (e.g., rivaroxaban, apixaban) or direct thrombin inhibitor (e.g., dabigatran) therapy. These drugs may cause false positive LA results but will not interfere with anticardiolipin and beta-2 glycoprotein 1 antibody testing. Performed By: #### L 3890.6100, L3890.6300, L509.8000, L3890.6005, L3400.1610 #### [facility] [address] [place], [address] aPTT Coag (Bld) [Time] 45.5 s Normal 0.0-51.9 [facility] Comment on above: Order Comment: Test( s) 468707-Cqqjuo, Serum or Plasmawas developed and its performance characteristicsdetermined by [facility]. It has not been cleared or approvedby the Food and Drug Administration.BILL fernandes Performed By: #### L 3890.6100, L3890.6300, L509.8000, L3890.6005, L3400.1610 #### [facility] [address] [place], [address] DILUTE PT (dPT) 48.2 sec High 0.0-47.6 [facility] Comment on above: Order Comment: Test( s) 679890-Vthjws, Serum or Plasmawas developed and its performance characteristicsdetermined by [facility]. It has not been cleared or approvedby the Food and Drug Administration.BILL fernandes Performed By: #### L 3890.6100, L3890.6300, L509.8000, L3890.6005, L3400.1610 #### [facility] [address] [place], [address] (599) dPT Conf. Ratio 0.94 Ratio Normal 0.00-1.34 [facility] Comment on above: Order Comment: Test( s) 353972-Bqdizt, Serum or Plasmawas developed and its performance characteristicsdetermined by [facility]. It has not been cleared or approvedby the Food and Drug Administration.BILL comprehensive Performed By: #### L 3890.6100, L3890.6300, L509.8000, L3890.6005, L3400.1610 #### [facility] [address] [place], [address] (283) DRVVT 53.6 sec Abnormal 0.0-47.0 [facility] Comment on above: Order Comment: Test( s) 655349-Niocgb, Serum or Plasmawas developed and its performance characteristicsdetermined by [facility]. It has not been cleared or approvedby the Food and Drug Administration.BILL comprehensive Performed By: #### L 3890.6100, L3890.6300, L509.8000, L3890.6005, L3400.1610 #### [facility] [address] [place], [address] THROMBIN TIME 17.5 sec Normal 0.0-23.0 [facility] Comment on above: Order Comment: Test( s) 891865-Jknlfz, Serum or Plasmawas developed and its performance characteristicsdetermined by [facility]. It has not been cleared or approvedby the Food and Drug Administration.BILL comprehensive Performed By: #### L 3890.6100, L3890.6300, L509.8000, L3890.6005, L3400.1610 #### [facility] [address] [place], [address] (885) Protein S Antigenon 1210-20 21 PROTEIN S,TOTAL 109 Normal 60-150 [facility] Comment on above: Order Comment: Test( s) 279463-Kpdkgv, Serum or Plasmawas developed and its performance characteristicsdetermined by [facility]. It has not been cleared or approvedby the Food and Drug Administration.BILL fenrandes Result Comment: This test was developed and its performance characteristics determined by [facility]. It has not been cleared or approved by the Food and Drug Administration. Performed By: #### L 3890.6100, L3890.6300, L509.8000, L3890.6005, L3400.1610 #### [facility] [address] [place], [address] PROTEIN S, FREE 122 Normal 61-136 [facility] Comment on above: Order Comment: Test( s) 287201-Xmjhti, Serum or Plasmawas developed and its performance characteristicsdetermined by [facility]. It has not been cleared or approvedby the Food and Drug Administration.BILL fernandes Performed By: #### L 3890.6100, L3890.6300, L509.8000, L3890.6005, L3400.1610 #### [facility] [address] [place], [address] NOE w/Comprehensiveon 2020 NOE TABLE Comment Normal . [facility] Comment on above: Result Comment: Auto antibody Disease Association Condition Frequency Antinuclear Antibody, SLE, mixed connective Direct (NOE-D) tissue diseases dsDNA SLE 40 - 60% Chromatin Drug induced SLE 90% SLE 48 - 97% SSA (Ro) SLE 25 - 35% Sjogren's Syndrome 40 - 70% Lupus 100% SSB (La) SLE 10% Sjogren's Syndrome 30% Sm (anti-Mccullough) SLE 15 - 30% DATA PROCESSING MECHANIC Mixed Connective Tissue Disease 95% (U1 nRNP, SLE 30 - 50% anti-ribonucleoprotein) Polymyositis and/or Dermatomyositis 20% Scl-70 (antiDNA Scleroderma (diffuse) 20 - 35% topoisomerase) Crest 13% Raine-1 Polymyositis and/or Dermatomyositis 20 - 40% Centromere B Scleroderma - Crest variant 80% Ribosomal P SLE 10 - 20% Performed By: #### L 3890.6100, L3890.6300, L509.8000, L3890.6005, L3400.1610 #### [facility] [address] [place], [address] ANTI-DNA (DS)AB <1 Normal 0-9 [facility] Comment on above: Result Comment: Nega tive <5 Equivocal 5 - 9 Positive >9 Performed By: #### L 3890.6100, L3890.6300, L509.8000, L3890.6005, L3400.1610 #### [facility] [address] [place], [address] ANTI-CENT B AB <0.2 Normal 0.0-0.9 [facility] Comment on above: Performed By: #### L 3890.6100, L3890.6300, L509.8000, L3890.6005, L3400.1610 #### [facility] [address] [place], [address] ANTI-RAINE-1 <0.2 Normal 0.0-0.9 [facility] Comment on above: Performed By: #### L 3890.6100, L3890.6300, L509.8000, L3890.6005, L3400.1610 #### [facility] [address] [place], [address] ANTI-SS-A < 0.2 Normal 0.0-0.9 [facility] Comment on above: Performed By: #### L 3890.6100, L3890.6300, L509.8000, L3890.6005, L3400.1610 #### [facility] [address] [place], [address] Anti-SS-B < 0.2 Normal 0.0-0.9 [facility] Comment on above: Performed By: #### L 3890.6100, L3890.6300, L509.8000, L3890.6005, L3400.1610 #### [facility] [address] [place], [address] ANTICHROMATIN <0.2 Normal 0.0-0.9 [facility] Comment on above: Performed By: #### L 3890.6100, L3890.6300, L509.8000, L3890.6005, L3400.1610 #### [facility] [address] [place], [address] Antiribosomal P <0.2 Normal 0.0-0.9 [facility] Comment on above: Performed By: #### L 3890.6100, L3890.6300, L509.8000, L3890.6005, L3400.1610 #### [facility] [address] [place], [address] ANTISCLERODERM <0.2 Normal 0.0-0.9 [facility] Comment on above: Performed By: #### L 3890.6100, L3890.6300, L509.8000, L3890.6005, L3400.1610 #### [facility] [address] [place], [address] DATA PROCESSING MECHANIC Ab <0.2 Normal 0.0-0.9 [facility] Comment on above: Performed By: #### L 3890.6100, L3890.6300, L509.8000, L3890.6005, L3400.1610 #### [facility] [address] [place], [address] MCCULLOUGH Ab <0.2 Normal 0.0-0.9 [facility] Comment on above: Performed By: #### L 3890.6100, L3890.6300, L509.8000, L3890.6005, L3400.1610 #### [facility] [address] [place], [address] MCCULLOUGH/DATA PROCESSING MECHANIC Ab <0.2 Normal 0.0-0.9 [facility] Comment on above: Performed By: #### L 3890.6100, L3890.6300, L509.8000, L3890.6005, L3400.1610 #### [facility] [address] [place], [address] Anti-Mitochondrial ABon ANTIMITOCHON AB <20.0 Normal 0.0-20.0 [facility] Comment on above: Result Comment: Nega tive 0.0 - 20.0 Equivocal 20.1 - 24.9 Positive >24.9 Mitochondrial (M2) Antibodies are found in 90-96% of patients with primary biliary cirrhosis. Performed at: [address] [id number] Program Architect: Sanjeev Mendenhall PhD, Phone: [phone] Performed By: #### L 3890.6100, L3890.6300, L509.8000, L3890.6005, L3400.1610 #### [facility] [address] [place], [address] Hepatitis C Antibodyon 04-27 Hepatitis C Ab Non-Reactive Normal Nonreactive [facility] Comment on above: Order Comment: Reaso n for Exam: hepatomegaly Result Comment: Non Reactive: < 0.8 Equivocal: >/= 0.8 to < 1.0 Reactive: >/= 1.0 The CDC recommends that a reactive/equivocal HCV antibody result be followed up by the HCV Nucleic Acid Amplification test (752865) Performed By: #### P SSII #### [facility] [address] [place], [place], [address] CRPon 04-26-2021 C-REACTIVE PROT 12.80 mg/L High 0.0-3.0 [facility] Comment on above: Order Comment: NOE c omprehensive1 Result Comment: C-Re active Protein (CRP) provides useful information for the diagnosis, therapy and monitoring of inflammatory processes and associated diseases. For the evaluation of Relative Risk for Cardiovascular Disease, a High Sensitivity CRP (HSCRP) should be ordered. Performed By: #### P SSII #### [facility] [address] [place], [place], [id number] Erythrocyte Sed Rateon 04-26 SED RATE 32 mm/hr High 0-30 [facility] Comment on above: Performed By: #### P SSII #### [facility] [address] [place], [place], [address] Gastroenterology Visit Repor ton 04-26-2021 Gastroenterology Visit Report [facility] [address] [place] [address] OFFICE VISIT Date of Service: 04/26/21 MR#: [id number] Acct: [id number] Name: ALMA ULLOA Rep #: [id number] : 1985 Provider: Joe Arias DO Age/Sex: 35/F Location[place] [facility] [place] Status: Signed Intake Vital Signs 04/26/21 13:37 Height 5 ft 2 in Weight: 303 lb 4 oz BMI 55.4 Intake Visit Reasons: IBS? Allergies No Known Allergies Allergy (Verified 11/23/20 21:32) [facility] Medical History (Updated 04/26/21 @ 14:[address] Joe Arias DO) Depression Fatty (change of) liver, not elsewhere classified PCOS (polycystic ovarian syndrome) Pre-diabetes Social History Smoking Status: Never smoker HPI HPI Details: ALMA ULLOA, is a 35 F who presents to the office today for evaluation of diarrhea. She also has been having some abdominal pain. 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 Her diarrhea and abdominal pain got significantly better after being on Metformin. Currently for which she is on Ozempic. Back to doing very well from the medicine. However her diarrhea has gotten to the point she is having nocturnal diarrhea. She has difficulty with diarrhea each day with 5-10 episodes a day. She has attempted bland diets. Vegetables, salads, processed foods, eating out all trigger. COVID diagnosis in September. Worried because health issues have worsened to include DMII and worsened HTN. PCP attempted metformin which worsened diarrhea. Ozempic taking now and feels this is delaying her gastric emptying and causing worsening diarrhea. Reporting 20lb weight loss since November 2021. Also reports gas and bloating. Sigmoidoscopy performed 10 years prior, she reports nothing abnormal. Chest CTA 11/23/20 performed during ED visit with findings of enlarged liver and fatty infiltration. ROS Const Constitutional: Positive for fatigue and headache(s) ENT ENT: Positive for nasal congestion, headache(s) and sore throat Gastro GI: Positive for abdominal pain, bloating, diarrhea and heartburn Musc Musculoskeletal: Positive for back pain Neuro Neurology: Positive for headache(s) Psych Psychiatric: Positive for anxiety Endo Endocrine: Positive for fatigue Exam Const General: cooperative and comfortable Nutritional Appearance: average body habitus and well nourished [facility] Head: normal to inspection Ears: hearing grossly normal bilaterally Nose: external nose normal Face and sinus: normal facial exam Mouth: oral mucosae normal Throat: posterior oropharynx normal Eyes General: appearance normal, both eyes and all related structures Neck Neck: normal visual inspection Chest Chest palpation inspection: normal inspection of the chest and normal palpation of entire chest wall Resp Effort Inspection: normal respiratory effort Auscultation: Bilateral: Clear to Auscultation Cardio Palpation: normal PMI Rate: regular rate Rhythm: regular rhythm GI Inspection: normal to inspection Auscultation: normal bowel sounds Percussion: normal to percussion Palpation: no hepatosplenomegaly Skin General: no rashes or lesions noted Neuro General: patient alert Extrem General: normal to inspection Psych Affect: normal affect Quality Reporting Tobacco Screening ([facility] 138) Smoking Status: Never smoker Assessment and Plan Assessment and Plan (1) Diarrhea: Status: Acute Orders: Orders: Colonoscopy Today EGD Today Liver Today Plan - Dr. Diaz Friend, DO: She will undergo colonoscopy. At this time we will also perform stool studies with biopsies. She will undergo biochemical testing. (2) Fatty (change of) liver, not elsewhere classified: Status: Acute Orders: Orders: Colonoscopy Today EGD Today CRP Today LDH Today Erythrocyte Sed Rate Today Anti-Mitochondrial AB Today Angiotensin Convert Enzyme Today ANCA Today Anti-Smooth Muscle ABS Today Antithrombin 3 Function Today Celiac Disease Profile Today Ceruloplasmin Today Copper, Serum or Plasma Today Fact V Leiden Mutation Today Immunoglobulin E Today Immunoglobulin G Today Immunoglobulin M Today Lupus Anticoagulant Comp Today Protein S Antigen Today Hepatitis C Antibody Today EBV Acute Prof IgG / IgM Today Miscellaneous Lab Procedure Today Liver Today Elastography Parenchyma/Organ Today Plan - Dr. Diaz Friend, DO: Her hepatomegaly is likely secondary to fatty liver disease. However because her PTT is prolonged. We will assess for hypercoagulable disorder and also look for other signs Plan Details Other Medications: New: bisacodyl 5 mg PO ONCE 4 tabs 0RF polyethylene glycol 3350 (Miralax) take as directed for bowel 17 grams PO (more content not included)... Normal [facility] LDHon 04-26-2021 LDH 145 U/L Normal 84-246 [facility] Comment on above: Order Comment: NOE reyna omprehensive1 Performed By: #### P SSII #### [facility] [address] [place], [address] Blood Glucose , Office ([phone])on 02-08-2021 Glucose Glucometer (BldC) [Moles/Vol] 119 1 Normal [facility]; [facility] Work Phone: Comment on above: fasting HgA1C , Office ([phone])on HbA1c (Bld) [Mass fraction] 5.7 % Normal 4.6 - 7.1 [facility]; [facility] Work Phone: HgA1C , Office ([phone])Ordere d By: Jackelin Gomes on 11-30-2020 HbA1c (Bld) [Mass fraction] 7.7 % Abnormal 4.6 - 7.1 [facility]; [facility] Work Phone: URINE GREG CULTURE-IDENTIFICA [place] ([phone])Ordered By: Sales Agent Insurance on 11-30-2020 Bacteria identified Cx Nom (U) Final report Abnormal [facility]; [facility] Work Phone: Comment on above: PATIENT NOT FASTINGP ERFORMED BY: Reqlut [id number] [facility] ComputingLife[facility] [id number] Information: SRC: Bacteria identified Cx Nom (U) Klebsiella pneumoniae Abnormal [facility]; [facility] Work Phone: Comment on above: Greater than 100,000 colony forming units per mLCefazolin <=4 ug/mLCefazolin with an THAD <=16 predicts susceptibility to the oral agentscefaclor, cefdinir, cefpodoxime, cefprozil, cefuroxime, cephalexin,and loracarbef when used for therapy of uncomplicated urinary tractinfections due to E. coli, Klebsiella pneumoniae, and Proteusmirabilis. PATIENT NOT FASTINGP ERFORMED BY: [employer] Jeweqr1434 Atlantis ComputingLifeCare Hospitals of North [facility] [id number] Information: SRC:VIVI Other Antibiotic [Susc] MIHEAD Normal [facility]; [facility] Work Phone: Comment on above: S = Susceptible; I = Intermediate; R = Resistant P = Positive; N = Negative MICS are expressed in micrograms per mL Antibiotic RSLT#1 RSLT#2 RSLT#3 RSLT#4Amoxicillin/Clavulanic Acid SAmpicillin RCefepime SCeftriaxone SCefuroxime SCiprofloxacin SErtapenem SGentamicin SImipenem SLevofloxacin SMeropenem SNitrofurantoin RPiperacillin/Tazobactam STetracycline STobramycin STrimethoprim/Sulfa S PATIENT NOT FASTINGP ERFORMED BY: [employer] Qlydvg4902 Atlantis ComputingLifeCare Hospitals of [facility] [place] [id number] Information: SRC:VIVI Urinalysis, Office ([id number])Or dered By: Jackelin Gomes on 11-30-2020 Bilirubin Ql (U) Negative Normal Comprehe nsive Internal Medicine; [facility] Work Phone: Glucose Test strip (U) [Mass/Vol] Negative Normal [facility]; [facility] Work Phone: Hemoglobin Ql (U) +++ Abnormal Compreh ensive [facility] Medicine; [facility] Work Phone: Ketones Ql (U) Negative Normal Comprehens alex [facility] Medicine; [facility] Work Phone: Leukocyte esterase Test strip Ql (U) Moderate Abnormal [facility]; [facility] Work Phone: Nitrite Ql (U) Negative Normal Comprehens alex [facility]; [facility] Work Phone: pH (U) 5.0 [pH] Normal [facility]; [facility] Work Phone: Protein Ql (U) + Abnormal Comprehens alex [facility]; [facility] Work Phone: Specific gravity (U) [Rel density] 1.030 1 Abnormal [facility]; [facility] Work Phone: Urobilinogen (24H U) [Mass/Time] 2 mg/dL Normal [facility]; [facility] Work Phone: CALCIFIDIOL (53519) VIT D 25 Ordered By: Sales Agent Insurance on 02-20-2020 25-Hydroxyvitamin D2+25-Hydroxyvitamin D3 [Mass/Vol] 25.5 ng/mL Abnormal 30.0-100.0 [facility] Work Phone: Comment on above: Vitamin D deficiency has been defined by the [place] of[place]icine and an Endocrine Society practice guideline as alevel of serum 25-OH vitamin D less than 20 ng/mL (1,2).The Endocrine Society went on to further define vitamin Dinsufficiency as a level between 21 and 29 ng/mL (2).1. IOM ([place] of [employer]). 2010. Dietary reference intakes for calcium and D. [place]: The National Academies Press.2. Henok MF, Sara NC, Jessica PHILLIP, et al. Evaluation, treatment, and prevention of vitamin D deficiency: an Endocrine Society clinical practice guideline. JCEM. 2010; 96(7):1911-30. PATIENT WAS FASTINGP ERFORMED BY: [facility] Cxdtub3745 [facility]in [place] [id number] CBC (AUTO) ([id number])Ordered By : Sales Agent Insurance on 02-20-2020 Erythrocyte distribution width (RBC) [Ratio] 13.9 % Normal 11.7-15.4 [facility] Work Phone: Comment on above: PATIENT WAS FASTINGP ERFORMED BY: [facility]6370 [facility] [id number] Hematocrit (Bld) [Volume fraction] 40.4 % Normal 34.0-46.6 [facility] Work Phone: Comment on above: PATIENT WAS FASTINGP ERFORMED BY: [facility]6370 [facility] [id number] Hemoglobin (Bld) [Mass/Vol] 13.6 g/dL Normal 11.1-15.9 [facility] Work Phone: Comment on above: PATIENT WAS FASTINGP ERFORMED BY: [facility]6370 [facility] [id number] MCH (RBC) [Entitic mass] 28.3 pg Normal 26.6-33.0 [facility] Work Phone: Comment on above: PATIENT WAS FASTINGP ERFORMED BY: [facility]6370 [facility] [id number] MCHC (RBC) [Mass/Vol] 33.7 g/dL Normal 31.5-35.7 [facility] Work Phone: Comment on above: PATIENT WAS FASTINGP ERFORMED BY: [facility] Hgxeyo8738 [facility]in [place] [id number] MCV (RBC) [Entitic vol] 84 fL Normal 79-97 [facility] Work Phone: Comment on above: PATIENT WAS FASTINGP ERFORMED BY: LabCo Cynjwx0632 [address] [facility] [place] [id number] Platelets (Bld) [#/Vol] 441 {x10E3/uL} Normal 150-450 [facility] Work Phone: Comment on above: PATIENT WAS FASTINGP ERFORMED BY: NIMCO [facility] Aasmqh1345 [address]za RoadDublin [place] [id number] Platelets (Bld) [#/Vol] 441 10*3/uL Normal 150-450 [facility]; [facility] Work Phone: Comment on above: PATIENT WAS FASTINGP ERFORMED BY: CB [facility] Vefhej4506 [address]za RoadDublin [place] [id number] RBC (Bld) [#/Vol] 4.80 {x10E6/uL} Normal 3.77-5.28 [facility] Medicine Work Phone: Comment on above: PATIENT WAS FASTINGP ERFORMED BY: NIMCO [facility] Jqnmvd0027 [address]za RoadDublin [place] [id number] RBC (Bld) [#/Vol] 4.80 10*6/uL Normal 3.77-5.28 [facility] Medicine; [facility] Work Phone: Comment on above: PATIENT WAS FASTINGP ERFORMED BY: NIMCO [facility] Xwvuzb7225 [address] RoadDublin [place] [id number] WBC (Bld) [#/Vol] 9.9 {x10E3/uL} Normal 3.4-10.8 [facility] Internal Medicine Work Phone: Comment on above: PATIENT WAS FASTINGP ERFORMED BY: CB [facility] Xbifdq4940 [address] RoadDublin [place] [id number] WBC (Bld) [#/Vol] 9.9 10*3/uL Normal 3.4-10.8 [facility]; [facility] Work Phone: Comment on above: PATIENT WAS FASTINGP ERFORMED BY: CB [facility] Dzrqgb8679 [address] RoadDublin [place] [id number] HgA1C , Office (51917)on HbA1c (Bld) [Mass fraction] 6.9 % Normal 4.6 - 7.1 [facility] Work Phone: LIPID PANEL (02510)Ordered B y: Sales Agent Insurance on 02-20-2020 Cholesterol [Mass/Vol] 156 mg/dL Normal 100-199 [facility] Work Phone: Comment on above: PATIENT WAS FASTINGP ERFORMED BY: NIMCO Soto6370 [facility] [id number] Cholesterol in HDL [Mass/Vol] 31 mg/dL Abnormal [facility] Work Phone: Comment on above: PATIENT WAS FASTINGP ERFORMED BY: NIMCO Hayeslin6370 [facility] [id number] Cholesterol in LDL/Cholesterol in HDL [Mass ratio] 2.9 {ratio} Normal 0.0-3.2 [facility] Work Phone: Comment on above: LDL/HDL Ratio Men Wo men 1/2 Avg.Risk 1.0 1.5 Avg.Risk 3.6 3.2 2X Avg.Risk 6.2 5.0 3X Avg.Risk 8.0 6.1 PATIENT WAS FASTINGP ERFORMED BY: NIM[employer] Hayeslin6370 [facility] [id number] Triglyceride [Mass/Vol] 207 mg/dL Abnormal 0-149 [facility] Work Phone: Comment on above: PATIENT WAS FASTINGP ERFORMED BY: NIMCO Hayeslin6370 [facility] [id number] LIPID PANEL (02123) 90 mg/dL Normal 0-99 Compr ehensive Internal Medicine Work Phone: Comment on above: PATIENT WAS FASTINGP ERFORMED BY: NIMCO Hayeslin6370 [facility] [id number] LIPID PANEL (97420) 35 mg/dL Normal 5-40 Compr ehensive Internal Medicine Work Phone: Comment on above: PATIENT WAS FASTINGP ERFORMED BY: NIM[employer] Hayeslin6370 [facility] [id number] LIPID PANEL (27852) 2.9 {ratio} Normal 0.0-3.2 Comp rehensive Internal Medicine; [facility] Work Phone: Comment on above: LDL/HDL Ratio Men Wo men 1/2 Avg.Risk 1.0 1.5 Avg.Risk 3.6 3.2 2X Avg.Risk 6.2 5.0 3X Avg.Risk 8.0 6.1 PATIENT WAS FASTINGP ERFORMED BY: NIMCO LabRosalinda HayesGgnrbo8959 [address] RoadDublin [place] [id number] METABOLIC PANEL, COMPREHENSI VE (11211)Ordered By: Sales Agent Insurance on 02-20-2020 Albumin [Mass/Vol] 4.2 g/dL Normal 3.8-4.8 [facility] Work Phone: Comment on above: PATIENT WAS FASTINGP ERFORMED BY: NIMCO LabRosalinda HayesTyfhid1290 [address] [facility]in [place] [id number] Albumin/Globulin [Mass ratio] 1.6 {ratio} Normal 1.2-2.2 [facility] Work Phone: Comment on above: PATIENT WAS FASTINGP ERFORMED BY: NIMCO [facility] Ssppco7899 [address] [facility]in [place] [id number] ALP [Catalytic activity/Vol] 79 [iU]/L Normal 39-117 [facility] Work Phone: Comment on above: PATIENT WAS FASTINGP ERFORMED BY: NIMCO LabRosalinda HayesTylbci1539 [address] [facility]in [place] [id number] ALP [Catalytic activity/Vol] 79 U/L Normal 39-117 [facility]; [facility] Work Phone: Comment on above: PATIENT WAS FASTINGP ERFORMED BY: NIMCO [facility] Ierjwf8767 [address] [facility]in [place] [id number] ALT [Catalytic activity/Vol] 23 [iU]/L Normal 0-32 [facility] Work Phone: Comment on above: PATIENT WAS FASTINGP ERFORMED BY: NIMCO [facility] Owtssq6188 [address] [facility]in [place] [id number] ALT [Catalytic activity/Vol] 23 U/L Normal 0-32 [facility]; [facility] Work Phone: Comment on above: PATIENT WAS FASTINGP ERFORMED BY: NIMCO [facility] Vrnnhe9847 [address] RoadDublin [place] [id number] AST [Catalytic activity/Vol] 17 [iU]/L Normal 0-40 [facility] Internal Medicine Work Phone: Comment on above: PATIENT WAS FASTINGP ERFORMED BY: NIMCO [facility] Udfqip3835 [address] RoadDublin [place] [id number] AST [Catalytic activity/Vol] 17 U/L Normal 0-40 [facility]; [facility] Work Phone: Comment on above: PATIENT WAS FASTINGP ERFORMED BY: NIMCO [facility] Nhdwrn1623 [address]Dublin [place] [id number] Bilirubin [Mass/Vol] 0.4 mg/dL Normal 0.0-1.2 [facility] Work Phone: Comment on above: PATIENT WAS FASTINGP ERFORMED BY: NIMCO [facility] Hktjgw1944 [address] RoadDublin [place] [id number] Calcium [Mass/Vol] 9.5 mg/dL Normal 8.7-10.2 [facility] Work Phone: Comment on above: PATIENT WAS FASTINGP ERFORMED BY: NIMCO Lab[facility] Xhuzie6832 [address] RoadDublin [place] [id number] Chloride [Moles/Vol] 106 mmol/L Normal 96-106 [facility] Internal Medicine Work Phone: Comment on above: PATIENT WAS FASTINGP ERFORMED BY: NIMCO [facility] Coibfn4487 [address] RoadDublin [place] [id number] CO2 [Moles/Vol] 23 mmol/L Normal 20-29 [facility] Internal Medicine Work Phone: Comment on above: PATIENT WAS FASTINGP ERFORMED BY: NIMCO [facility] Xfvesx5809 [address] RoadDublin [place] [id number] Creatinine [Mass/Vol] 0.73 mg/dL Normal 0.57-1.00 [facility] Internal Medicine Work Phone: Comment on above: PATIENT WAS FASTINGP ERFORMED BY: NIMCO [facility] Tuglbt2451 [address] RoadDublin [place] [id number] GFR/1.73 sq M predicted among blacks CKD-EPI (S/P/Bld) [Vol rate/Area] 125 mL/min/1.73 Normal [facility] Work Phone: Comment on above: PATIENT WAS FASTINGP ERFORMED BY: NIMCO [facility] Bkkuji2053 [address] Roadblin [place] [id number] GFR/1.73 sq M predicted among non-blacks CKD-EPI (S/P/Bld) [Vol rate/Area] 109 mL/min/1.73 Normal [facility] Work Phone: Comment on above: PATIENT WAS FASTINGP ERFORMED BY: [facility] Ztboer4540 [address]blin [place] [id number] Globulin (S) [Mass/Vol] 2.6 g/dL Normal 1.5-4.5 [facility] Work Phone: Comment on above: PATIENT WAS FASTINGP ERFORMED BY: [facility] Qunzgo6585 [address] [facility]in [place] [id number] Glucose [Mass/Vol] 107 mg/dL Abnormal 65-99 [facility] Internal Medicine Work Phone: Comment on above: PATIENT WAS FASTINGP ERFORMED BY: LabCo Ksuiqk0095 [address] [facility] [id number] Potassium [Moles/Vol] 4.3 mmol/L Normal 3.5-5.2 [facility] Work Phone: Comment on above: PATIENT WAS FASTINGP ERFORMED BY: [facility] Bbvohs6385 [address] [facility]in [place] [id number] Protein [Mass/Vol] 6.8 g/dL Normal 6.0-8.5 [facility] Work Phone: Comment on above: PATIENT WAS FASTINGP ERFORMED BY: [facility] Pihisd2076 [address] [facility]in [place] [id number] Sodium [Moles/Vol] 141 mmol/L Normal 134-144 [facility] Work Phone: Comment on above: PATIENT WAS FASTINGP ERFORMED BY: [facility] Scqfoh2253 [address]Dublin [place] [id number] Urea nitrogen [Mass/Vol] 15 mg/dL Normal 6-20 [facility] Work Phone: Comment on above: PATIENT WAS FASTINGP ERFORMED BY: NIMCO [facility] Cbliyk4440 [address] RoadDublin [place] [id number] Urea nitrogen/Creatinine [Mass ratio] 21 mg/mg Normal 9-23 [facility] Work Phone: Comment on above: PATIENT WAS FASTINGP ERFORMED BY: [facility] Xcdocu2224 [address] RoadDublin [place] [id number] MICROALBUMINOrdered By: Glamit em Pipe Coverer And Insulator on 02-20-2020 Albumin DL <= 20 mg/L (U) [Mass/Vol] 10.9 ug/mL Normal Comprehensiv e Internal Medicine Work Phone: Comment on above: PATIENT WAS FASTINGP ERFORMED BY: NIMCO [facility] Ajbrri4558 [address] RoadDublin [place] [id number] Albumin/Creatinine (U) [Mass ratio] 7 {mg/g_creat} Normal 0-29 [facility] Work Phone: Comment on above: Normal: 0 - 29 Moder ately increased: 30 - 300 Severely increased: >300 Please note reference interval change PATIENT WAS FASTINGP ERFORMED BY: NIM[employer] [facility] Vrxebp9951 [address] RoadDublin [place] [id number] Creatinine (U) [Mass/Vol] 165.1 mg/dL Normal [facility] Work Phone: Comment on above: PATIENT WAS FASTINGP ERFORMED BY: [facility] Oblwrq3571 [address] RoadDublin [place] [id number] TSH ([id number])Ordered By: Syste m Pipe Coverer And Insulator on 02-20-2020 TSH Qn 1.360 {uIU/mL} Normal 0.450-4.500 Comprehen [facility] Internal Medicine Work Phone: Comment on above: PATIENT WAS FASTINGP ERFORMED BY: Lab[facility] Netevp6981 [address] RoadDublin [place] [id number] VITAMIN B-12 (CYANOCOBALAMIN ) ([id number])Ordered By: Sales Agent Insurance on 02-20-2020 Cobalamin (Vitamin B12) [Mass/Vol] 222 pg/mL Abnormal 232-1245 [facility] Work Phone: Comment on above: PATIENT WAS FASTINGP ERFORMED BY: NIMCO VoxFeed6370 Atlantis ComputingLifeCare Hospitals of [place] [id number] CALCIFIDIOL (31589) VIT D 25 on 09-25-2015 25-Hydroxyvitamin D2+25-Hydroxyvitamin D3 mass conc 23.7 ng/mL Abnormal 30.0-100.0 [facility] Work Phone: Comment on above: Vitamin D deficiency has been defined by the [place] of[place]icine and an Endocrine Society practice guideline as alevel of serum 25-OH vitamin D less than 20 ng/mL (1,2).The Endocrine Society went on to further define vitamin Dinsufficiency as a level between 21 and 29 ng/mL (2).1. IOM ([place] of [place]). 2010. Dietary reference intakes for calcium and D. [place]: The National Academies Press.2. Henok MF, Sara NC, Jessica PHILLIP, et al. Evaluation, treatment, and prevention of vitamin D deficiency: an Endocrine Society clinical practice guideline. JCEM. 2010; 96(7):1911-30. PATIENT NOT FASTINGP ERFORMED BY: [employer]6370 Atlantis ComputingLifeCare Hospitals of [place] [id number] Information: [id number] VITAMIN B-12 (CYANOCOBALAMIN ) (07392)on 09-25-2015 Cobalamin (Vitamin B12) mass conc 296 pg/mL Normal 211-946 [facility] Work Phone: Comment on above: PATIENT NOT FASTINGP ERFORMED BY: [employer]6370 [facility]SynchNovant [facility] [id number] HgA1C , Office ([id number])Ordere d By: Radha Trent on 07-25-2015 Hemoglobin A1c/Hemoglobin.total mass fraction (Bld) 5.7 % Normal 4.6 - 7.1 Comprehensiv e Internal Medicine Work Phone: TSHon 11-22-2014 Thyrotropin Qn 1.980 {uIU/mL} Normal 0.450-4.500 Compr ehensive Internal Medicine Work Phone: Thyroxine (T4) Free, Direct, Son 11-22-2014 T4 free mass conc 0.99 ng/dL Normal 0.82-1.77 Compreh ensive Internal Medicine Work Phone: Triiodothyronine,Free,Serumo n 11-22-2014 T3 free mass conc 3.6 pg/mL Normal 2.0-4.4 Compreh ensive Internal Medicine Work Phone: Vital Signs Date Time Vital Sign Value Performing Clinician Facility 12-30-2024 15:56-0400 Body height 157.[address] Odalys Raymond DO Work Phone: [facility] 12-30-2024 15:56-0400 Body mass index (BMI) [Ratio] 50.6 kg/m2 Dr. Odalys Raymond DO Work Phone: [facility] 12-30-2024 15:56-0400 Body temperature 99.1 [degF] Dr. Odalys Raymond DO Work Phone: [facility] 12-30-2024 15:56-0400 Body weight 125.[address] Odalys Raymond DO Work Phone: [facility] 12-30-2024 15:56-0400 Diastolic blood pressure 78 mm[Hg] Dr. Odalys Raymond DO Work Phone: [facility] 12-30-2024 15:56-0400 Heart rate 81 /min Dr. Odalys Raymond DO Work Phone: [facility] 12-30-2024 15:56-0400 Respiratory rate 15 /min Dr. Odalys Raymond DO Work Phone: [facility] 12-30-2024 15:56-0400 SaO2% (BldA) [Mass fraction] 97 % Dr. Odalys Raymond DO Work Phone: [facility] 12-30-2024 15:56-0400 Systolic blood pressure 132 mm[Hg] Dr. Odalys Raymond DO Work Phone: [facility] 10-03-2024 12:19-0400 Body mass index (BMI) [Ratio] 45.87 kg/m2 Annie Loaiza MD Work Phone: [facility] 10-03-2024 12:19-0400 Body weight 113.76 kg Annie Loaiza MD Work Phone: [facility] 10-03-2024 12:19-0400 Diastolic blood pressure 69 mm[Hg] Annie Loaiza MD Work Phone: [facility] 10-03-2024 12:19-0400 Heart rate 73 /min Annie Loaiza MD Work Phone: [facility] 10-03-2024 12:19-0400 Systolic blood pressure 113 mm[Hg] Annie Loaiza MD Work Phone: [facility] 01-19-2024 14:58-0400 Body height 157.5 cm Claudy Cortez MD Work Phone: [facility] 01-19-2024 14:58-0400 Body mass index (BMI) [Ratio] 40.97 kg/m2 Claudy Cortez MD Work Phone: [facility] 01-19-2024 14:58-0400 Body weight 101.61 kg Claudy Cortez MD Work Phone: [facility] 01-19-2024 14:58-0400 Diastolic blood pressure 72 mm[Hg] Claudy Cortez MD Work Phone: [facility] 01-19-2024 14:58-0400 Heart rate 87 /min Claudy Cortez MD Work Phone: [facility] 01-19-2024 14:58-0400 Systolic blood pressure 111 mm[Hg] Claudy Cortez MD Work Phone: [facility] 08-11-2023 15:06-0400 Body height 157.5 cm Claudy Cortez MD Work Phone: [facility] 08-11-2023 15:06-0400 Body mass index (BMI) [Ratio] 41.52 kg/m2 Claudy Cortez MD Work Phone: [facility] 08-11-2023 15:06-0400 Body weight 102.97 kg Claudy Cortez MD Work Phone: [facility] 08-11-2023 15:06-0400 Diastolic blood pressure 79 mm[Hg] Claudy Cortez MD Work Phone: [facility] 08-11-2023 15:06-0400 Heart rate 88 /min Claudy Cortez MD Work Phone: [facility] 08-11-2023 15:06-0400 Systolic blood pressure 121 mm[Hg] Claudy Cortez MD Work Phone: [facility] 10-15-2022 11:49-0400 Body height 157.48 cm [facility]; [facility] Work Phone: 10-15-2022 11:49-0400 Body mass index (BMI) [Ratio] 40.1 kg/m2 [facility]; [facility] Work Phone: 10-15-2022 11:49-0400 Body surface area Derived from formula 1.99 m2 [facility]; [facility] Work Phone: 10-15-2022 11:49-0400 Body temperature 97.6 [degF] [facility]; [facility] Work Phone: 10-15-2022 11:49-0400 Body weight 99.45 kg [facility]; [facility] Work Phone: 10-15-2022 11:49-0400 Diastolic blood pressure 60 mm[Hg] [facility]; [facility] Work Phone: Comment on above: Patient Position: Sitting; Cuff Location : Left Arm; Cuff Size: Standard 10-15-2022 11:49-0400 Heart rate 73 /min [facility]; [facility] Work Phone: Comment on above: Pattern: Regular 10-15-2022 11:49-0400 Respiratory rate 18 /min [facility]; [facility] Work Phone: Comment on above: Pattern: Unlabored 10-15-2022 11:49-0400 SaO2% (BldA) [Mass fraction] 98 % [facility]; [facility] Work Phone: Comment on above: Room air 10-15-2022 11:49-0400 Systolic blood pressure 112 mm[Hg] [facility]; [facility] Work Phone: Comment on above: Patient Position: Sitting; Cuff Location : Left Arm; Cuff Size: Standard 01-29-2022 15:01-0400 Body height 157.48 cm Muna Slarb [facility]; [facility] Work Phone: Comment on above: pt did not report 01-29-2022 15:01-0400 Body mass index (BMI) [Ratio] 45.18 kg/m2 Muna Slarb [facility]; [facility] Work Phone: Comment on above: pt did not report 01-29-2022 15:01-0400 Body surface area Derived from formula 2.09 m2 Muna Slarb [facility]; [facility] Work Phone: Comment on above: pt did not report 01-29-2022 15:01-0400 Body weight 112.04 kg Muna Slarb [facility]; [facility] Work Phone: Comment on above: pt did not report 01-23-2022 11:10-0400 Body height 157.48 cm Jackelin Gravius [facility]; [facility] Work Phone: 01-23-2022 11:10-0400 Body mass index (BMI) [Ratio] 45.18 kg/m2 Jackelin Gravius [facility]; [facility] Work Phone: 01-23-2022 11:10-0400 Body surface area Derived from formula 2.09 m2 Jackelin Gomes CMA [facility]; [facility] Work Phone: 01-23-2022 11:10-0400 Body temperature 97.3 [degF] Jackelin Gomes CMA Comprehensiv e [facility]; [facility] Work Phone: Comment on above: Method: Infrared 01-23-2022 11:10-0400 Body weight 112.04 kg Jackelin Gomes CMA [facility]; [facility] Work Phone: 01-23-2022 11:10-0400 Diastolic blood pressure 78 mm[Hg] Jackelin Gomes CMA [facility]; [facility] Work Phone: Comment on above: Patient Position: Sitting; Cuff Location : Left Arm; Cuff Size: Standard 01-23-2022 11:10-0400 Heart rate 80 /min Jackelin Gomes CMA [facility]; [facility] Work Phone: Comment on above: Pattern: Regular 01-23-2022 11:10-0400 Respiratory rate 16 /min Jackelin Gomes CMA [facility]; [facility] Work Phone: Comment on above: Pattern: Unlabored 01-23-2022 11:10-0400 SaO2% (BldA) [Mass fraction] 99 % Jackelin [facility]; [facility] Work Phone: Comment on above: Room air 01-23-2022 11:10-0400 Systolic blood pressure 122 mm[Hg] Jackelin Gomes [employer] [facility]; [facility] Work Phone: Comment on above: Patient Position: Sitting; Cuff Location : Left Arm; Cuff Size: Standard 08-19-2021 15:34-0400 Body height 160.[address] Odalys Raymond Work Phone: [facility] Work Phone: 08-19-2021 15:34-0400 Body mass index (BMI) [Ratio] 49.5 kg/m2 Dr. Odalys Raymond Work Phone: [facility] Work Phone: 08-19-2021 15:34-0400 Body temperature 98.2 [degF] Dr. Odalys Raymond Work Phone: [facility] Work Phone: 08-19-2021 15:34-0400 Body weight 126.[address] Odalys Raymond Work Phone: [facility] Work Phone: 08-19-2021 15:34-0400 Diastolic blood pressure 71 mm[Hg] Dr. Odalys Raymond Work Phone: [facility] Work Phone: 08-19-2021 15:34-0400 Heart rate 64 /min Dr. Odalys Raymond Work Phone: [facility] Work Phone: 08-19-2021 15:34-0400 Respiratory rate 15 /min Dr. Odalys Raymond Work Phone: [facility] Work Phone: 08-19-2021 15:34-0400 SaO2% (BldA) [Mass fraction] 96 % Dr. Odalys Raymond Work Phone: [facility] Work Phone: 08-19-2021 15:34-0400 Systolic blood pressure 109 mm[Hg] Dr. Odalys Raymond Work Phone: [facility] Work Phone: 08-14-2021 14:45-0400 Body mass index (BMI) [Ratio] 49.9 kg/m2 Dr. Odalys Raymond Work Phone: [facility] Work Phone: 08-14-2021 14:45-0400 Body weight 127.[address] Odalys Raymond Work Phone: [facility] Work Phone: 08-14-2021 14:45-0400 Diastolic blood pressure 71 mm[Hg] Dr. Odalys Raymond Work Phone: [facility] Work Phone: 08-14-2021 14:45-0400 Heart rate 84 /min Dr. Odalys Raymond Work Phone: [facility] Work Phone: 08-14-2021 14:45-0400 SaO2% (BldA) [Mass fraction] 97 % Dr. Odalys Raymond Work Phone: [facility] Work Phone: 08-14-2021 14:45-0400 Systolic blood pressure 112 mm[Hg] Dr. Odalys Raymond Work Phone: [facility] Work Phone: 07-01-2021 11:06-0500 Body temperature 99.2 [degF] Dr. Odalys Raymond Work Phone: [facility] Work Phone: 07-01-2021 11:06-0500 Diastolic blood pressure 64 mm[Hg] Dr. Odalys Raymond Work Phone: [facility] Work Phone: 07-01-2021 11:06-0500 Heart rate 100 /min Dr. Odalys Raymond Work Phone: [facility] Work Phone: 07-01-2021 11:06-0500 Respiratory rate 16 /min Dr. Odalys Raymond Work Phone: [facility] Work Phone: 07-01-2021 11:06-0500 SaO2% (BldA) [Mass fraction] 95 % Dr. Odalys Raymnod Work Phone: [facility] Work Phone: 07-01-2021 11:06-0500 Systolic blood pressure 127 mm[Hg] Dr. Odalys Raymond Work Phone: [facility] Work Phone: 07-01-2021 05:34-0500 Body mass index (BMI) [Ratio] 52.8 kg/m2 Dr. Odalys Raymond Work Phone: [facility] Work Phone: 07-01-2021 05:34-0500 Body weight [address] Odalys Raymond Work Phone: [facility] Work Phone: 06-27-2021 08:36-0500 Body mass index (BMI) [Ratio] 53.6 kg/m2 Dr. Odalys Raymond Work Phone: [facility] Work Phone: 06-27-2021 08:36-0500 Body temperature 97.4 [degF] Dr. Odalys Raymond Work Phone: [facility] Work Phone: 06-27-2021 08:36-0500 Body weight 133.[address] Odalys Raymond Work Phone: [facility] Work Phone: 06-27-2021 08:36-0500 Diastolic blood pressure 80 mm[Hg] Dr. Odalys Raymond Work Phone: [facility] Work Phone: 06-27-2021 08:36-0500 Heart rate 88 /min Dr. Odalys Raymond Work Phone: [facility] Work Phone: 06-27-2021 08:36-0500 Respiratory rate 18 /min Dr. Odalys Raymond Work Phone: [facility] Work Phone: 06-27-2021 08:36-0500 SaO2% (BldA) [Mass fraction] 96 % Dr. Odalys Raymond Work Phone: [facility] Work Phone: 06-27-2021 08:36-0500 Systolic blood pressure 122 mm[Hg] Dr. Odalys Raymond Work Phone: [facility] Work Phone: 05-20-2021 13:43-0500 Body height 157.48 cm Muna Samantha MILLERN [facility]; [facility] Work Phone: 05-20-2021 13:43-0500 Body mass index (BMI) [Ratio] 54.5 kg/m2 Muna Chuckierb [employer] [facility]; [facility] Work Phone: 05-20-2021 13:43-0500 Body surface area Derived from formula 2.26 m2 Muna Chuckierb [employer] [facility]; [facility] Work Phone: 05-20-2021 13:43-0500 Body temperature 97.3 [degF] Muna Chuckierb [employer] [facility]; [facility] Work Phone: 05-20-2021 13:43-0500 Body weight 135.17 kg Muna Chuckierb [employer] [facility]; [facility] Work Phone: 05-20-2021 13:43-0500 Diastolic blood pressure 78 mm[Hg] Muna Chuckierb [employer] [facility]; [facility] Work Phone: Comment on above: Patient Position: Sitting; Cuff Location : Left Arm; Cuff Size: Standard 05-20-2021 13:43-0500 Heart rate 93 /min Muna Chuckierb [employer] [facility]; [facility] Work Phone: Comment on above: Pattern: Regular 05-20-2021 13:43-0500 Respiratory rate 16 /min Muna Chuckierb [employer] [facility]; [facility] Work Phone: Comment on above: Pattern: Unlabored 05-20-2021 13:43-0500 SaO2% (BldA) [Mass fraction] 97 % Muna Singh [facility]; [facility] Work Phone: Comment on above: Room air 05-20-2021 13:43-0500 Systolic blood pressure 116 mm[Hg] Muna Singh [facility]; [facility] Work Phone: Comment on above: Patient Position: Sitting; Cuff Location : Left Arm; Cuff Size: Standard 02-08-2021 08:47-0400 Body height 157.48 cm Odalys Raymond DO Work Phone: [facility]; [facility] Work Phone: 02-08-2021 08:47-0400 Body mass index (BMI) [Ratio] 54.69 kg/m2 Odalys Raymond DO Work Phone: [facility]; [facility] Work Phone: 02-08-2021 08:47-0400 Body surface area Derived from formula 2.27 m2 Odalys Raymond DO Work Phone: [facility]; [facility] Work Phone: 02-08-2021 08:47-0400 Body temperature 97.1 [degF] Odalys Raymond DO Work Phone: [facility]; [facility] Work Phone: Comment on above: Method: Thermal Scan 02-08-2021 08:47-0400 Body weight 135.63 kg Odalys Raymond DO Work Phone: [facility]; [facility] Work Phone: 02-08-2021 08:47-0400 Diastolic blood pressure 68 mm[Hg] Odalys Raymond DO Work Phone: [facility]; [facility] Work Phone: Comment on above: Patient Position: Sitting; Cuff Location : Left Arm; Cuff Size: Standard 02-08-2021 08:47-0400 Heart rate 68 /min Odalys Raymond DO Work Phone: [facility]; [facility] Work Phone: Comment on above: Pattern: Regular 02-08-2021 08:47-0400 Respiratory rate 16 /min Odalys Raymond DO Work Phone: [facility]; [facility] Work Phone: Comment on above: Pattern: Unlabored 02-08-2021 08:47-0400 SaO2% (BldA) [Mass fraction] 98 % Odalys Raymond DO Work Phone: [facility]; [facility] Work Phone: Comment on above: Room air 02-08-2021 08:47-0400 Systolic blood pressure 106 mm[Hg] Odalys Raymond DO Work Phone: [facility]; [facility] Work Phone: Comment on above: Patient Position: Sitting; Cuff Location : Left Arm; Cuff Size: Standard 11-30-2020 08:29-0400 Body height 157.48 cm [facility]; [facility] Work Phone: 11-30-2020 08:29-0400 Body mass index (BMI) [Ratio] 56.15 kg/m2 [facility]; [facility] Work Phone: 11-30-2020 08:29-0400 Body mass index (BMI) [Ratio] 56.33 kg/m2 Jackelin Gravius [facility]; [facility] Work Phone: 11-30-2020 08:29-0400 Body surface area Derived from formula 2.29 m2 [facility]; [facility] Work Phone: 11-30-2020 08:29-0400 Body surface area Derived from formula 2.3 m2 Jackelin Gravius [facility]; [facility] Work Phone: 11-30-2020 08:29-0400 Body temperature 97.3 [degF] Jackelin Gravius [facility]; [facility] Work Phone: Comment on above: Method: Infrared 11-30-2020 08:290400 Body weight 139.26 kg [facility]; [facility] Work Phone: 11-30-2020 08:290400 Body weight 139.71 kg Jackelin Gomes CMA [facility]; [facility] Work Phone: 11-30-2020 08:29-0400 Diastolic blood pressure 70 mm[Hg] Jackelin Gomes [employer] [facility]; [facility] Work Phone: Comment on above: Patient Position: Sitting; Cuff Location : Left Arm; Cuff Size: Standard 11-30-2020 08:29-0400 Heart rate 91 /min Jackelin Gomes [employer] [facility]; [facility] Work Phone: Comment on above: Pattern: Regular 11-30-2020 08:29-0400 Respiratory rate 16 /min Jackelin Gomes [employer] [facility]; [facility] Work Phone: Comment on above: Pattern: Unlabored 11-30-2020 08:29-0400 SaO2% (BldA) [Mass fraction] 95 % Jackelin Gomes [employer] [facility]; [facility] Work Phone: Comment on above: Room air 11-30-2020 08:29-0400 Systolic blood pressure 118 mm[Hg] Jackelin Gomes [employer] [facility]; [facility] Work Phone: Comment on above: Patient Position: Sitting; Cuff Location : Left Arm; Cuff Size: Standard 02-20-2020 13:03-0400 BMI (Body Mass Index) 56.15 kg/m2 Jackelin Gomes [employer] [facility] Work Phone: 02-20-2020 13:03-040 Body Temperature 96.8 [degF] Jackelin Gomes [employer] [facility] Work Phone: Comment on above: Method: Infrared 02-20-2020 13:030400 Body weight 139.26 kg Jackelin Gomes [employer] [facility] Work Phone: 02-20-2020 13:03-0400 BP Diastolic 70 mm[Hg] Jackelin Gomes [employer] [facility] Work Phone: Comment on above: Patient Position: Sitting; Cuff Location : Left Arm; Cuff Size: Standard 02-20-2020 13:03-0400 BP Systolic 101 mm[Hg] Jackelin Gomes CMA [facility] Work Phone: Comment on above: Patient Position: Sitting; Cuff Location : Left Arm; Cuff Size: Standard 02-20-2020 13:03-0400 BSA (Body Surface Area) 2.29 m2 Jackelin Gomse [facility] Work Phone: 02-20-2020 13:03-0400 Height 157.48 cm Jackelin Gomes [employer] [facility] Work Phone: 02-20-2020 13:03-0400 Pulse (Heart Rate) 85 /min Jackelin Gomes CMA [facility] Work Phone: Comment on above: Pattern: Regular 02-20-2020 13:03-0400 Pulse Oximetry 94 % Odalys [facility] Work Phone: Comment on above: Room air 02-20-2020 13:03-0400 Respiratory Rate 20 /min Jackelin Gomes CMA [facility] Work Phone: Comment on above: Pattern: Unlabored 02-20-2020 13:03-0400 SaO2% (BldA) [Mass fraction] 94 % Jackelin Gomes [facility]; [facility] Work Phone: Comment on above: Room air 10-14-2018 11:35-0400 BMI (Body Mass Index) 53.04 kg/m2 Soledad Diaz RN [facility] Work Phone: 10-14-2018 11:35-0400 Body Temperature 97.8 [degF] Soledad Diaz RN [facility] Work Phone: Comment on above: Method: Temporal 10-14-2018 11:35-0400 Body weight 131.54 kg Soledad Diaz RN [facility] Work Phone: 10-14-2018 11:35-0400 BP Diastolic 70 mm[Hg] Soledad Diaz RN [facility] Work Phone: Comment on above: Patient Position: Sitting; Cuff Location : Left Arm; Cuff Size: Standard 10-14-2018 11:35-0400 BP Systolic 120 mm[Hg] Soledad Diaz RN [facility] Work Phone: Comment on above: Patient Position: Sitting; Cuff Location : Left Arm; Cuff Size: Standard 10-14-2018 11:35-0400 BSA (Body Surface Area) 2.24 m2 Soledad Diaz RN [facility] Work Phone: 10-14-2018 11:35-0400 Height 157.48 cm Soledad Diaz RN [facility] Work Phone: 10-14-2018 11:35-0400 Pulse (Heart Rate) 72 /min Soledad Diaz RN [facility] Work Phone: Comment on above: Pattern: Regular 10-14-2018 11:35-0400 Respiratory Rate 16 /min Soledad Diaz RN [facility] Work Phone: Comment on above: Pattern: Unlabored 10-14-2018 11:35-0400 Weight 131.54 kg Odalys Raymond [facility] Work Phone: 01-20-2018 13:02-0400 BMI (Body Mass Index) 55.65 kg/m2 Neema Jackson RN [facility] Work Phone: 01-20-2018 13:02-0400 Body weight 138.01 kg Neema Jackson RN [facility] Work Phone: 01-20-2018 13:02-0400 BP Diastolic 78 mm[Hg] Neema Jackson RN [facility] Work Phone: Comment on above: Patient Position: Sitting; Cuff Location : Left Arm; Cuff Size: Large 01-20-2018 13:02-0400 BP Systolic 138 mm[Hg] Neema Jackson RN [facility] Work Phone: Comment on above: Patient Position: Sitting; Cuff Location : Left Arm; Cuff Size: Large 01-20-2018 13:02-0400 BSA (Body Surface Area) 2.28 m2 Neema Jackson RN [facility] Work Phone: 01-20-2018 13:02-0400 Height 157.48 cm Neema Jackson RN [facility] Work Phone: 01-20-2018 13:02-0400 Pulse (Heart Rate) 107 /min Neema Jackson RN [facility] Work Phone: Comment on above: Pattern: Regular 01-20-2018 13:02-0400 Pulse Oximetry 96 % Odalys Raymond [facility] Work Phone: Comment on above: Room air 01-20-2018 13:02-0400 Respiratory Rate 18 /min Neema Jackson RN [facility] Work Phone: Comment on above: Pattern: Unlabored 01-20-2018 13:02-0400 SaO2% (BldA) [Mass fraction] 96 % Neema Jackson RN [facility]; [facility] Work Phone: Comment on above: Room air 01-20-2018 13:02-0400 Weight 138.01 kg Odalys Raymond [facility] Work Phone: 11-12-2016 09:29-0400 BMI (Body Mass Index) 52.58 kg/m2 Neema Jackson RN [facility] Work Phone: 11-12-2016 09:29-0400 Body weight 130.41 kg Neema Jackson RN [facility] Work Phone: 11-12-2016 09:29-0400 BP Diastolic 78 mm[Hg] Neema Jackson RN [facility] Work Phone: Comment on above: Patient Position: Sitting; Cuff Location : Left Arm; Cuff Size: Large 11-12-2016 09:29-0400 BP Systolic 122 mm[Hg] Neema Jackson RN [facility] Work Phone: Comment on above: Patient Position: Sitting; Cuff Location : Left Arm; Cuff Size: Large 11-12-2016 09:29-0400 BSA (Body Surface Area) 2.23 m2 Neema Jackson RN [facility] Work Phone: 11-12-2016 09:29-0400 Height 157.48 cm Neema Jackson RN [facility] Work Phone: 11-12-2016 09:29-0400 Pulse (Heart Rate) 88 /min Neema Jackson RN [facility] Work Phone: Comment on above: Pattern: Regular 11-12-2016 09:29-0400 Pulse Oximetry 98 % Odalys Raymond [facility] Work Phone: Comment on above: Room air 11-12-2016 09:29-0400 Respiratory Rate 18 /min Neema Jackson RN [facility] Work Phone: Comment on above: Pattern: Unlabored 11-12-2016 09:29-0400 SaO2% (BldA) [Mass fraction] 98 % Neema Jackson RN [facility]; [facility] Work Phone: Comment on above: Room air 11-12-2016 09:29-0400 Weight 130.41 kg Odalys Ambrizon [facility] Work Phone: 10-05-2015 08:55-0400 BMI (Body Mass Index) 50.34 kg/m2 Neema Jackson RN [facility] Work Phone: 10-05-2015 08:55-0400 Body weight 124.85 kg Neema Jackson RN [facility] Work Phone: 10-05-2015 08:55-0400 BP Diastolic 84 mm[Hg] Neema Jackson RN [facility] Work Phone: Comment on above: Patient Position: Sitting; Cuff Location : Left Arm; Cuff Size: Large 10-05-2015 08:55-0400 BP Systolic 122 mm[Hg] Neema Jackson RN [facility] Work Phone: Comment on above: Patient Position: Sitting; Cuff Location : Left Arm; Cuff Size: Large 10-05-2015 08:55-0400 BSA (Body Surface Area) 2.19 m2 Neema Jackson RN [facility] Work Phone: 10-05-2015 08:55-0400 Height 157.48 cm Neema Jackson RN [facility] Work Phone: 10-05-2015 08:55-0400 Pulse (Heart Rate) 93 /min Neema Jackson RN [facility] Work Phone: Comment on above: Pattern: Regular 10-05-2015 08:55-0400 Pulse Oximetry 98 % Odalys Raymond [facility] Work Phone: Comment on above: Room air 10-05-2015 08:55-0400 Respiratory Rate 20 /min Neema Jackson RN [facility] Work Phone: Comment on above: Pattern: Unlabored 10-05-2015 08:55-0400 SaO2% (BldA) [Mass fraction] 98 % Neema Jackson RN [facility]; [facility] Work Phone: Comment on above: Room air 10-05-2015 08:55-0400 Weight 124.85 kg Odalys Raymond [facility] Work Phone: 07-25-2015 11:50-0500 BMI (Body Mass Index) 50.53 kg/m2 Neema Jackson RN [facility] Work Phone: 07-25-2015 11:50-0500 Body weight 125.31 kg Neema Jackson RN [facility] Work Phone: 07-25-2015 11:50-0500 BP Diastolic 78 mm[Hg] Neema Jackson RN [facility] Work Phone: Comment on above: Patient Position: Sitting; Cuff Location : Left Arm; Cuff Size: Large 07-25-2015 11:50-0500 BP Systolic 120 mm[Hg] Neema Jackson RN [facility] Work Phone: Comment on above: Patient Position: Sitting; Cuff Location : Left Arm; Cuff Size: Large 07-25-2015 11:50-0500 BSA (Body Surface Area) 2.19 m2 Neema Jackson RN [facility] Work Phone: 07-25-2015 11:50-0500 Height 157.48 cm Neema Jackson RN [facility] Work Phone: 07-25-2015 11:50-0500 Pulse (Heart Rate) 92 /min Neema Jackson RN [facility] Work Phone: Comment on above: Pattern: Regular 07-25-2015 11:50-0500 Pulse Oximetry 97 % Odalys Raymond [facility] Work Phone: Comment on above: Room air 07-25-2015 11:50-0500 Respiratory Rate 18 /min Neema Jackson RN [facility] Work Phone: Comment on above: Pattern: Unlabored 07-25-2015 11:50-0500 SaO2% (BldA) [Mass fraction] 97 % Neema Jackson RN [facility]; [facility] Work Phone: Comment on above: Room air 07-25-2015 11:50-0500 Weight 125.31 kg Odalys Raymond [facility] Work Phone: 12-27-2014 13:19-0400 BMI (Body Mass Index) 47.62 kg/m2 [facility] Work Phone: 12-27-2014 13:19-0400 Body Temperature 95.9 [degF] [facility] Work Phone: 12-27-2014 13:19-0400 Body weight 118.11 kg [facility] Work Phone: 12-27-2014 13:19-0400 BP Diastolic 70 mm[Hg] [facility] Work Phone: Comment on above: Patient Position: Sitting; Cuff Location : Left Arm; Cuff Size: Standard 12-27-2014 13:19-0400 BP Systolic 120 mm[Hg] [facility] Work Phone: Comment on above: Patient Position: Sitting; Cuff Location : Left Arm; Cuff Size: Standard 12-27-2014 13:19-0400 BSA (Body Surface Area) 2.14 m2 [facility] Work Phone: 12-27-2014 13:19-0400 Height 157.48 cm [facility] Work Phone: 12-27-2014 13:19-0400 Pulse (Heart Rate) 89 /min [facility] Work Phone: Comment on above: Pattern: Regular 12-27-2014 13:19-0400 Pulse Oximetry 97 % Odalys Raymond [facility] Work Phone: Comment on above: Room air 12-27-2014 13:19-0400 SaO2% (BldA) [Mass fraction] 97 % [facility]; [facility] Work Phone: Comment on above: Room air 12-27-2014 13:19-0400 Weight 118.11 kg Odalys Raymond [facility] Work Phone: 11-22-2014 08:54-0400 BMI (Body Mass Index) 48.72 kg/m2 Neema Jackson RN [facility] Work Phone: 11-22-2014 08:54-0400 Body weight 120.83 kg Neema Jackson RN [facility] Work Phone: 11-22-2014 08:54-0400 BP Diastolic 62 mm[Hg] Neema Jackson RN [facility] Work Phone: Comment on above: Patient Position: Sitting; Cuff Location : Right Arm; Cuff Size: Large 11-22-2014 08:54-0400 BP Systolic 122 mm[Hg] Neema Jackson RN [facility] Work Phone: Comment on above: Patient Position: Sitting; Cuff Location : Right Arm; Cuff Size: Large 11-22-2014 08:54-0400 BSA (Body Surface Area) 2.16 m2 Neema Jackson RN [facility] Work Phone: 11-22-2014 08:54-0400 Height 157.48 cm Neema Jackson RN [facility] Work Phone: 11-22-2014 08:54-0400 Pulse (Heart Rate) 67 /min Neema Jackson RN [facility] Internal Medicine Work Phone: Comment on above: Pattern: Regular 11-22-2014 08:54-0400 Pulse Oximetry 96 % Odalys Ambrizon [facility] Internal Medicine Work Phone: Comment on above: Room air 11-22-2014 08:54-0400 Respiratory Rate 20 /min Neema Jackson RN [facility] Work Phone: Comment on above: Pattern: Unlabored 11-22-2014 08:54-0400 SaO2% (BldA) [Mass fraction] 96 % Neema Jackson RN [facility]; [facility] Work Phone: Comment on above: Room air 11-22-2014 08:54-0400 Weight 120.83 kg Odalys Raymond [facility] Work Phone: Encounters Encounter Date Encounter Type Care Provider Facility Start: 12-30-2024 End: 12-30-[address] Odalys Raymond DO Work Phone: [facility] Start: 12-30-2024 End: 12-30-2024 Patient encounter procedure Michel Han PA [facility] Work Phone: Start: 12-26-2024 End: 12-26-2024 Emergency department patient visit ODALYS [facility] Start: 12-24-2024 End: 12-24-2024 Emergency department patient visit [facility] Start: 10-03-2024 End: 10-03-2024 ambulatory ANNIE LOAIZA [facility] Start: 10-03-2024 End: 10-03-2024 Office outpatient visit 25 minutes Annie Loaiza MD Work Phone: [facility] Comment on above: Secondary oligomenor lu (Primary Dx); Abnormal uterine bleeding; Complete miscarriage; Controlled type 2 diabetes mellitus without complication, without long-term current use of insulin (HCC); Morbid obesity with BMI of 40.0-44.9, adult ([facility]) Start: 09-16-2024 End: 09-16-2024 Emergency department patient visit [facility] Start: 09-08-2024 End: 11-08-2024 Follow-up encounter Claudy Cortez MD Work Phone: [facility] Comment on above: hCG, Blood, Quantita tive Start: 09-05-2024 End: 09-09-2024 ambulatory Mendez Francisco RN [facility]ne[facility] Comment on above: Arrived Start: 03-31-2024 End: 03-31-2024 ambulatory CLAUDY CORTEZ [facility] Start: 03-30-2024 End: 03-30-2024 ambulatory PROVIDER NOT IN SYSTEM [facility] Start: 03-08-2024 End: 03-21-2024 Orders Only Claudy Cortez MD Work Phone: [facility]ne[facility] Comment on above: Screening mammogram for breast cancer (Primary Dx) Start: 01-19-2024 End: 01-19-2024 Patient encounter procedure Claudy Cortez MD Work Phone: [facility] Start: 01-19-2024 End: 01-19-2024 Periodic preventive med est patient 18-39 yrs Claudy Cortez MD Work Phone: [facility]ne[facility] Comment on above: Well woman exam with routine gynecological exam (Primary Dx) Start: 01-19-2024 End: 01-19-2024 ambulatory ODALYS RAYMOND [facility] Start: 01-19-2024 End: 01-19-2024 Encounter for gynecological examination (general) (routine) without abnormal findings CLAUDY CORTEZ [facility] Start: 08-11-2023 End: 08-11-2023 Office outpatient new 30 minutes Claudy Cortez MD Work Phone: [facility]necology Comment on above: Encounter to [facility] (Primary Dx); Infertility, female Start: 10-17-2022 End: 10-17-2022 Phone Encounter Odalys Raymond DO Work Phone: [facility] Start: 10-15-2022 End: 10-15-2022 Office outpatient visit 25 minutes Odalys Raymond DO Work Phone: [facility] Start: 10-06-2022 ambulatory Odalys Raymond DO [facility] Start: 05-27-2022 End: 05-27-2022 ambulatory SHERRIE WILLIS FISH [facility] Start: 05-27-2022 End: 05-27-2022 Encounter for general adult medical examination without abnormal findings SHERRIE WHITTEN [facility] Start: 01-29-2022 End: 01-29-2022 Office outpatient visit 15 minutes Odalys Raymond DO Work Phone: [facility] Start: 01-23-2022 End: 02-05-2022 Office outpatient visit 25 minutes Odalys Raymond DO Work Phone: [facility] Start: 11-11-2021 End: 11-11-2021 Annotation/Addendum Odalys Raymond DO Work Phone: [facility] Start: 10-22-2021 End: 10-22-[address] Odalys Raymond Work Phone: [facility] Start: 10-08-2021 End: 10-08-[address] Odalys Raymond Work Phone: [facility] Start: 08-21-2021 End: 08-21-2021 Prescription Refill Odalys Raymond DO Work Phone: [facility] Start: 08-19-2021 End: 08-19-[address] Odalys Raymond Work Phone: [facility] Start: 08-14-2021 End: 08-14-[address] Odalys Raymond Work Phone: [facility] Start: 08-14-[address] Omaira Raymond Work Phone: [facility] Start: 07-11-2021 End: 07-11-[address] Odalys Raymond Work Phone: [facility] Start: 07-01-2021 End: 07-01-2021 Phone Encounter Odalys Raymond DO Work Phone: [facility] Start: 07-01-2021 Non-patient / Non-visit Dr. Shira Raymond Work Phone: [facility] Start: 07-01-2021 End: 07-01-2021 Admission to same day surgery center Dr[facility] Odalys Raymond [facility] Start: 06-27-2021 End: 06-27-[address] Odalys Raymond Work Phone: [facility] Start: 05-22-2021 End: 05-22-2021 Annotation/Addendum Odalys Raymond DO Work Phone: [facility] Start: 05-20-2021 End: 05-20-2021 Office outpatient visit 15 minutes Odalys Raymond DO Work Phone: [facility] Start: 02-08-2021 End: 02-08-2021 Office outpatient visit 25 minutes Odalys Raymond DO Work Phone: [facility] Start: 11-30-2020 End: 11-30-2020 Office outpatient visit 25 minutes Odalys Raymond DO Work Phone: [facility] Start: 11-30-2020 Review Odalys Miranda n DO Work Phone: [facility] Start: 02-20-2020 End: 02-20-2020 Office outpatient visit 15 minutes Odalys Raymond [facility] Start: 02-20-2020 Review Odalys Raymond [facility] Start: 10-14-2018 End: 10-14-2018 Office outpatient visit 10 minutes Odalys Raymond [facility] Start: 10-14-2018 Review Odalys Raymond [facility] Start: 01-20-2018 End: 01-20-2018 Office outpatient visit 15 minutes Odalys Raymond [facility] Start: 11-12-2016 End: 11-12-2016 Office outpatient visit 15 minutes Odalys Raymond [facility] Start: 10-05-2015 End: 10-05-2015 Office outpatient visit 25 minutes Odalys Raymond [facility] Start: 07-25-2015 End: 07-25-2015 Office outpatient visit 25 minutes Odalys Raymond [facility] Start: 12-27-2014 End: 12-27-2014 Office outpatient visit 15 minutes Odalys Raymond [facility] Start: 11-22-2014 End: 11-22-2014 Office outpatient visit 25 minutes Odalys Fernandes [facility] Procedures Date Procedure Procedure Detail Performing Clinician Start: 01-19-2024 Microscopic observation [Identifier] in Cervix by Cyto stain Claudy Cortez MD Work Phone: Start: 10-22-[address] Odalys Raymond Work Phone: Start: 10-22-2021 End: 10-22-2021 SCRN MAMM (CAD)W/KENROY BILAT Comments: See Note; NOTES: [facility] Imaging Services [address] [place] [address] SCRN MAMM (CAD)W/KENROY BILAT MR#: [id number] Acct: [id number] Name: ALMA ULLOA Rep #: [id number] : 1985 F 36 From: Vincent arias MD PCP: Dr. Odalys Raymond, DO Status: REG CLI Study: SCRN MAMM (CAD)W/KENROY BILAT Date of Exam: 09/24 06/15 Exam# [id number] Ordering Dr: Calin Callejas MD MAMMOGRAPHY - BILATERAL SCREENING REASON FOR EXAM: Female, 36 years old. Routine annual screening examination. PERTINENT HISTORY: Grandmother with breast cancer. Aunt with breast cancer. TECHNIQUE: Digital bilateral breast kenroy (3D mammographic acquisition) in the CC and MLO projections. 2-D mediolateral oblique (MLO) and craniocaudad (CC) views of both breasts were obtained. CAD: Full Field Digital Mammography with Computer Added Detection was performed. COMPARISON: None. Baseline examination. FINDINGS: Breast Composition: There are scattered areas of fibroglandular density. There are no dominant masses or suspicious calcifications. Small benign appearing bilateral axillary lymph nodes. No other significant abnormalities are identified. BI/SCRN MAMM (CAD)W/KENROY BILAT IMPRESSION: Negative screening mammogram. Yearly followup mammogram recommended. (A) ASSESSMENT CATEGORY: BIRADS Category 2: Benign. A letter regarding these results will be sent to the patient by the facility within 30 days. Approximately 10% of breast cancers are not detected by mammography. A normal mammogram should not delay biopsy of a clinically suspicious abnormality. [id number] Electronically Signed: Vincent Pickard MD at 14:48 EDT Reading Location ID and State: [address] [place] [address] , Service support , CC: Dr. Calin Callejas MD; Dr. Odalys Raymond DO Court Operations Clerk: Signed Odalys Raymond DO Work Phone: Start: 08-19-2021 End: 08-19-2021 Oncology Visit Report Comments: See Note; NOTES: [facility] [address] [place] [address] [place] [address] OFFICE VISIT Date of Service: 08/19/21 1534 MR#: [id number] Acct: [id number] Name: ALMA ULLOA Rep #: [id number] : 1985 From: Bob Johnson MD Age/Sex: 36/F Location: [facility] Status: Signed HPI Subjective Date of Service 08/19/21 Chief Complaint F/u for abnormal coagulation. History of Present Illness 36y.o.woman was found to have abnormal coagulation, DRVV was 53 on 04/26/2021 so referred for further evaluation. Had blood work done and comes for follow up. [facility] Medical History Abnormal coagulation profile Anxiety Chest pain of uncertain etiology Cholelithiasis COVID CPAP (continuous positive airway pressure) dependence Depression Diabetes Diarrhea Epigastric pain Fatty (change of) liver, not elsewhere classified Fatty liver Gastric reflux Gastroparesis Generalized weakness History of IBS Hypertension Migraine headache Non-smoker PCOS (polycystic ovarian syndrome) Pre-diabetes Sleep apnea Wears glasses Surgical History History of cholecystectomy ( 06/2021) History of colonoscopy History of liver biopsy ( 06/2021) Family History Father Hypertension CVA (cerebral vascular accident) High blood cholesterol Mother Hypertension Thyroid disorder Asthma Social History Smoking Status: Never smoker alcohol intake: never substance use type: does not use ROS Constitutional Constitutional: Reports systems reviewed and no addt'l complaints, except as documented Eyes Eyes: Reports systems reviewed and no addt'l complaints, except as documented ENT HEENT: Reports systems reviewed and no addt'l complaints, except as documented Cardiovascular Cardiovascular: Reports systems reviewed and no addt'l complaints, except as documented Respiratory/Chest Respiratory/Chest: Reports systems reviewed and no addt'l complaints, except as documented Gastrointestinal Gastrointestinal: Reports systems reviewed and no addt'l complaints, except as documented Genitourinary Genitourinary: Reports systems reviewed and no addt'l complaints, except as documented Musculoskeletal Musculoskeletal: Reports systems reviewed and no addt'l complaints, except as documented Integumentary Integumentary: Reports systems reviewed and no addt'l complaints, except as documented Neurologic Neurologic: Reports systems reviewed and no addt'l complaints, except as documented Psychiatric Psychiatric: Reports systems reviewed and no addt'l complaints, except as documented Endocrine Endocrinology: Reports systems reviewed and no addt'l complaints, except as documented Hematologic/Lymphatic Hematologic/Lymphatic: Reports systems reviewed and no addt'l complaints, except as documented Allergic/Immunologic Allergic/Immunologic: Reports systems reviewed and no addt'l complaints, except as documented Intake Vital Signs 08/19/21 15:34 Height 5 ft 3 in Weight: 126.807 kg BMI 49.5 BP 109/71 Blood Pressure Location Rt femoral Position Sitting Respiration 15 Pulse 64 Pulse Source Monitor Temp 98.2 F Temperature Source Temporal Artery Pulse Oximetry (%) 96 Oxygen Delivery Method room air Intake Education And Development Manager Required: No Accompanied by: self Is patient in pain?: No Allergies No Known Allergies Allergy (Verified 08/19/21 15:40) Medications cholecalciferol (vitamin D3) [Vitamin D3] 125 mcg PO DAILY 11/23/20 [History Confirmed 08/19/21] escitalopram oxalate 20 mg PO DAILY 11/23/20 [History Confirmed 08/19/21] ibuprofen [IBU] 800 mg PO BID PRN 11/23/20 [History Confirmed 08/19/21] nebivolol [Bystolic] 5 mg PO DAILY 11/23/20 [History Confirmed 08/19/21] esomeprazole magnesium 20 mg capsule,delayed release 20 mg PO DAILY PRN 06/27/21 [History Confirmed 08/19/21] famotidine 20 mg tablet 20 mg PO DAILY PRN 06/27/21 [History Confirmed 08/19/21] metformin 500 mg tablet 500 mg PO DAILY tab 06/27/21 [History Confirmed 08/19/21] semaglutide 1 mg/dose (2 mg/1.5 mL) subcutaneous pen injector 1 mg SUBCUT BERMAN ml 06/27/21 [History Confirmed 08/19/21] losartan 50 mg PO DAILY 06/28/21 [History Confirmed 08/19/21] budesonide 3 mg capsule,delayed,extended release 9 mg PO DAILY #270 ea 08/14/21 [Rx Confirmed 08/19/21] colestipol 1 gram tablet 2 g PO BID #360 tab 08/14/21 [Rx Confirmed 08/19/21] dicyclomine 20 mg tablet 20 mg PO TID PRN #270 tab 08/14/21 [Rx Confirmed 08/19/21] Central Venous Access Central Venous Access: No Laboratory Tests 04/26/21 08/14/21 08/14/21 14:35 14:10 14:10 PT 13.9 PT Diluted 48.2 H 42.9 PT Ratio 0.94 1.17 INR 1.1 APTT 29.5 Thrombin Time 17.5 17.6 Lupus Anticoag aPTT 45.5 38.2 Dil Dinh Viper Venom 53.6 H 46.1 Lupus Anticoag Interp Comment: Free Protein S 122 Total Protein S 109 Func Antithrombin III 88 Factor V Leiden Mutat Comment Exam Physical Exam Const alert, oriented x3 and no apparent distress Coding Level of Care Code Off vis,est,level 3 Diagnoses Abnormal coagulation profile R79.1 Assessment and Plan Assessment and Plan (1) Abnormal coagulation profile: Status: Chronic Comment: Repeat Lab work on 08/14/2021 is normal. No need for further interventions. Plan - Dr. Bob Johnson MD: To do observation. F/u with PcP and referred if new problem arise. 08/19/21 4485 <Electronically signed by Bob Johnson MD> Date Bob Johnson MD Cosigner Signature: Date (if applicable) CC: Odalys Raymond DO Work Phone: Start: 08-14-2021 End: 08-14-2021 Gastroenterology Visit Report Comments: See Note; NOTES: [facility] [address] [place] [address] OFFICE VISIT Date of Service: 08/14/21 MR#: [id number] Acct: [id number] Name: ALMA ULLOA Rep #: [id number] : 1985 Provider: ARLEEN Wallace Age/Sex: 36/F Location: [facility] Status: Signed Intake Vital Signs 08/14/21 14:45 Height 5 ft 3 in Weight: 282 lb BMI 49.9 BP 112/71 Blood Pressure Location Rt brachial Position Sitting Pulse 84 Pulse Oximetry (%) 97 Intake Visit Reasons: FU Chief Complaint: post mario Allergies No Known Allergies Allergy (Verified 08/14/21 14:48) Medications cholecalciferol (vitamin D3) [Vitamin D3] 125 mcg PO DAILY 11/23/20 [History Confirmed 08/14/21] escitalopram oxalate 20 mg PO DAILY 11/23/20 [History Confirmed 08/14/21] ibuprofen [IBU] 800 mg PO BID PRN 11/23/20 [History Confirmed 08/14/21] nebivolol [Bystolic] 5 mg PO DAILY 11/23/20 [History Confirmed 08/14/21] esomeprazole magnesium 20 mg capsule,delayed release 20 mg PO DAILY PRN 06/27/21 [History Confirmed 08/14/21] famotidine 20 mg tablet 20 mg PO DAILY PRN 06/27/21 [History Confirmed 08/14/21] metformin 500 mg tablet 500 mg PO DAILY tab 06/27/21 [History Confirmed 08/14/21] semaglutide 1 mg/dose (2 mg/1.5 mL) subcutaneous pen injector 1 mg SUBCUT BERMAN ml 06/27/21 [History Confirmed 08/14/21] losartan 50 mg PO DAILY 06/28/21 [History Confirmed 08/14/21] budesonide 3 mg capsule,delayed,extended release 9 mg PO DAILY #270 ea 08/14/21 [Rx Confirmed 08/14/21] colestipol 1 gram tablet 2 g PO BID #360 tab 08/14/21 [Rx Confirmed 08/14/21] dicyclomine 20 mg tablet 20 mg PO TID PRN #270 tab 08/14/21 [Rx Confirmed 08/14/21] PFSH Medical History Abnormal coagulation profile Anxiety Chest pain of uncertain etiology Cholelithiasis COVID CPAP (continuous positive airway pressure) dependence Depression Diabetes Diarrhea Epigastric pain Fatty (change of) liver, not elsewhere classified Fatty liver Gastric reflux Gastroparesis Generalized weakness History of IBS Hypertension Migraine headache Non-smoker PCOS (polycystic ovarian syndrome) Pre-diabetes Sleep apnea Wears glasses Surgical History History of cholecystectomy ( 06/2021) History of colonoscopy History of liver biopsy ( 06/2021) Family History Father Hypertension CVA (cerebral vascular accident) High blood cholesterol Mother Hypertension Thyroid disorder Asthma Social History Smoking Status: Never smoker alcohol intake: never substance use type: does not use HPI HPI Chief Complaint: post mario Details: ALMA ULLOA, is a 36 F who presents to the office today for f/u liver biopsy. She has hepatomegaly (liver 20.3 cm on US) and fatty liver per US. Liver elastography revealed liver stiffness of only 4 kPa, F0 Metavir score (F0-F4). We requested liver biopsy at the time of her cholecystectomy which was done 07/01/21. Liver biopsy revealed chronic hepatitis, grade 1, stage 1, macrovesicular steatosis. She is having increased diarrhea since the cholecystectomy. Continues to get some pain in RUQ, taking dicyclomine prn--not sure if it's helping. We had already been treating her for lifelong diarrhea. She resumed budesonide which has helped, typically takes 6-9 mg daily. Has never been on colestipol. Gets some urgency of bowels, especially after meals now post- cholecystectomy. Liver biopsy: Chronic hepatitis, grade 1, stage 1 (modified Knodell scoring system for chronic hepatitis). Macrovesicular steatosis.See comment. COMMENT Sections show fatty deposition within the liver parenchyma. Inflammation is primarily confined to focal areas with focal lobular involvement. Trichrome stain shows uptake in the portal areas with minimal ???chicken-wire??? type uptake within the parenchyma. No obvious cirrhosis is seen. PAS with and without diastase does not reveal accumulation of abnormal proteins. Iron stain does not show intraparenchymal deposition of iron. Reticulin stain reveals a preserved parenchymal architecture. All matched controls are appropriate. EGD: LA grade A esophagitis, large amount of food residue in the stomach. Colonoscopy: Large amount of retained stool, poor visualization. No pathology found on biopsies. Right upper quadrant ultrasound: Liver 20.3 cm with fatty infiltration. 4.4 cm gallstone FibroScan: 4 kPa, F0 Metavir score. ROS Const Constitutional: No fatigue ENT ENT: No difficulty swallowing Gastro GI: Positive for abdominal pain, bloating, diarrhea, heartburn and nausea/dyspepsia; No belching, change in bowel habits, change in stool character, coffee ground emesis, constipation, cramping, difficulty swallowing, feeling full early, incontinent of stools, Vomiting blood/hematem esis, Blood in stool, loose stools, Black,tarry stools, pain with swallowing, vomiting or other Musc Musculoskeletal: No joint pain Skin Skin: No yellowing of the eye or itchy eyes Psych Psychiatric: No depression Endo Endocrine: No fatigue Aller/Imm Allergy/Immunologic: No itchy eyes Renan/Lymp Hematologic/Lymphatic: No easy bleeding or easy bruising Exam Const General: cooperative, comfortable, well developed and well groomed Nutritional Appearance: obese Quality Reporting Tobacco Screening (CMS 138) Smoking Status: Never smoker Assessment and Plan Assessment and Plan (1) Fatty liver: Status: Acute (2) Diarrhea: Status: Acute Plan - Isidra Wallace ROD BENDING MACHINE OPERATOR, ROD BENDING MACHINE OPERATOR-C: 36 yo female with fatty liver, obesity, diarrhea which has flared after cholecystectomy We discussed biopsy results which are reassuring. Recommendation is weight loss to manage fatty liver and prevent fibrosis/cirrhosis. Continue budesonide 6 mg daily, refilled Add colestipol, 1-2 grams bid Try dicyclomine routinely, 20 mg 1-2x daily to downregulate the intestinal cramps f/u 3 mos Plan Details Other Medications: New: colestipol 2 grams (2 x 1 gram) PO BID 360 tabs 0RF Changed: From: budesonide ER (Entocort EC) 6 mg PO DAILY To: budesonide ER 9 mg (3 x 3 mg) PO DAILY 270 ea 0RF Refilled: dicyclomine 20 mg PO TID PRN 270 tabs 1RF diarrhea and cramps Coding Level of Care Code Off vis,est,level 3 Diagnoses Fatty liver K76.0 Diarrhea R19.7 08/14/21 1534 <Electronically signed by Isidra Wallace ROD BENDING MACHINE OPERATOR ROD BENDING MACHINE OPERATOR-C> Date Isidra Wallace NP ROD BENDING MACHINE OPERATOR-C Cosigner Signature: Date (if applicable) CC: Dr. Odalys Raymond, DO Odalys Raymond DO Work Phone: Start: 07-11-2021 End: 07-11-2021 Surgery Visit Report Comments: See Note; NOTES: [facility] [address] [place] [address] OFFICE VISIT Date of Service: 07/11/21 MR#: [id number] Acct: [id number] Name: ALMA ULLOA Rep #: [id number] : 1985 Provider: Dr. Toro lange MD Age/Sex: 36/F Location: [facility] Status: Signed Intake Intake Visit Reasons: GALLBLADDER 07/01 Chief Complaint: post mario Education And Development Manager Required: No Is patient in pain?: No Allergies No Known Allergies Allergy (Verified 07/11/21 09:29) Medications cholecalciferol (vitamin D3) [Vitamin D3] 125 mcg PO DAILY 11/23/20 [History Confirmed 07/11/21] escitalopram oxalate 20 mg PO DAILY 11/23/20 [History Confirmed 07/11/21] ibuprofen [IBU] 800 mg PO BID PRN 11/23/20 [History Confirmed 07/11/21] nebivolol [Bystolic] 5 mg PO DAILY 11/23/20 [History Confirmed 07/11/21] dicyclomine 20 mg tablet 20 mg PO TID PRN #90 tab 06/07/21 [Rx Confirmed 07/11/21] budesonide 3 mg capsule,delayed,extended release 6 mg PO DAILY ea 06/27/21 [History Confirmed 07/11/21] esomeprazole magnesium 20 mg capsule,delayed release 20 mg PO DAILY PRN 06/27/21 [History Confirmed 07/11/21] famotidine 20 mg tablet 20 mg PO DAILY PRN 06/27/21 [History Confirmed 07/11/21] metformin 500 mg tablet 500 mg PO DAILY tab 06/27/21 [History Confirmed 07/11/21] semaglutide 1 mg/dose (2 mg/1.5 mL) subcutaneous pen injector 1 mg SUBCUT BERMAN ml 06/27/21 [History Confirmed 07/11/21] losartan 50 mg PO DAILY 06/28/21 [History Confirmed 07/11/21] Is last menstrual period known: No Post menopausal: No Patient : No Subjective Details: 36-year-old female. She is status post laparoscopic cholecystectomy with cholangiograms and Ger-Cut needle core biopsy of July 01, 2021. Pathology demonstrated chronic cholecystitis cholelithiasis and cholesterolosis. Liver biopsy showed chronic hepatitis grade a stage I with macrovesicular steatosis. The patient is seeing Dr. Joe Arias gastroenterology for treatment of her liver disease. Patient notes some mild nausea particularly in the morning. Occasionally she has some looser stools depending upon what she eats. 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 Objective Details: Abdomen is soft, Steri-Strips still in place, bowel sounds present unremarkable, demonstrating particular tenderness in the right upper quadrant. Coding Level of Care Code Global Post Op Diagnoses Cholelithiasis with chronic cholecystitis K80.10 Cholelithiasis location: gallbladder Biliary obstruction: without biliary obstruction Fatty liver K76.0 Hepatitis K75.9 [facility] Medical History (Updated 07/11/21 @ 09:[address] Toro Epstein MD) Abnormal coagulation profile Anxiety Chest pain of uncertain etiology Cholelithiasis COVID CPAP (continuous positive airway pressure) dependence Depression Diabetes Diarrhea Epigastric pain Fatty (change of) liver, not elsewhere classified Fatty liver Gastric reflux Gastroparesis Generalized weakness History of IBS Hypertension Migraine headache Non-smoker PCOS (polycystic ovarian syndrome) Pre-diabetes Sleep apnea Wears glasses Surgical History (Updated 07/11/21 @ 09:30 by Capri Encarnacion) History of cholecystectomy ( 06/2021) History of colonoscopy History of liver biopsy ( 06/2021) Family History Father Hypertension CVA (cerebral vascular accident) High blood cholesterol Mother Hypertension Thyroid disorder Asthma Social History (Updated 06/27/21 @ 09:36 by Lexie Lerma) Smoking Status: Never smoker alcohol intake: never substance use type: does not use Assessment and Plan (No Qualifiers) Assessment and Plan (1) Cholelithiasis with chronic cholecystitis: Status: Chronic (2) Fatty liver: Status: Acute (3) Hepatitis: Status: Acute Plan Details Additional Comments: The patient's had an opportunity to ask and have questions answered. She is encouraged to follow-up with Dr. Joe Arias regarding her steatohepatitis. She has had an opportunity to ask and have questions answered. Further surgical office follow-up can be as needed. Copy: Dr. Joe Arias and Dr. Odalys Epstein M.D., F.A.C.S. 07/11/21 0935 <Electronically signed by Toro Epstein MD> Date Toro Epstein MD Cosigner Signature: Date (if applicable) CC: Odalys Raymond DO Work Phone: Start: 07-01-2021 End: 07-01-2021 No Known Past Surgical History Jackelin Harkinsfrancesca [facility] Start: 07-01-2021 End: 07-01-2021 Operative Report Comments: See Note; NOTES: [facility] Medical Records Department [address] [place] [address] Operative Report 07/01/21 0903 MR#: [id number] Acct: [id number] Name: ALMA ULLOA Rep #: [id number] : 1985 36 From: Toro Epstein MD PCP: Dr. Odalys Raymond, Status:[facility] Location: [facility] Problems Associated Problem List Diagnoses (1) Cholelithiasis with chronic cholecystitis: (2) Fatty (change of) liver, not elsewhere classified: Report of Operation Date of Procedure: 07/01/21 Pre-Operative Diagnosis: Chronic cholecystitis cholelithiasis steatosis Surgery/Procedure Performed:: Laparoscopic cholecystectomy with cholangiograms, needle core right lobe liver biopsy Description of Surgical Findings:: Timeout informed consent was obtained. 36-year-old female was taken to the operating place upon the table underwent general endotracheal intubation anesthesia. The abdomen sterilely prepped and draped. 3 g of Ancef were given conventionally weight-based. The abdomen sterilely prepped and draped. 0.5% Marcaine was used as a local anesthetic. Throughout the procedure total 30 cc was used. Skin sites were. And excised. A supraumbilical vertical incision was created sharp dissection carried down through the subcutaneous tissue. The patient is noted to be morbidly obese and this dissection was requiring Army-Hilham retractors and deeper exposure. Holding sutures of 0 Vicryl placed small incision made in the fascia and then a varies needle inserted the abdomen was insufflated with CO2 to a pressure of 12 mmHg pressure. 10 mm trocar inserted. 10 mm laparoscope inserted. Under direct visualization the abdomen was inspected no evidence of any trocar injuries. The liver itself although enlarged did not have a tanvir yellow appearance. 5 mm trochars were placed in the epigastric mid abdomen right upper quadrant. The gallbladder was grasped and distracted. Tedious and careful blunt dissection was instituted at the infundibulum until clearly the critical view was achieved. Cystic artery was anteriorly at the cystic duct more posteriorly. The artery was secured twice proximally once distally with Hem-o-jacek clips prior to transecting it. Hem-o-jacek clip was placed on the cystic duct incision in the cystic duct cholangiogram catheter was inserted through a 14-gauge Angiocath and fluoroscopically controlled cholangiograms were obtained demonstrating what appeared to be normal ductal anatomy and though with some spasm distally there was flow into the small bowel. Small amount of retrograde flow within the pancreatic duct. The cholangiogram catheter was removed and a additional hemolock clip was placed on the cystic duct stump. The cystic duct was transected. Posterior attachments of the liver with further secured with hemolock clips. The gallbladder was then dissected free from the liver bed using electrocautery. A very large dominant stone was noted in the gallbladder. No bile spillage. Gallbladder is released and placed in a retrieval bag. Then through the Angiocath site a needle core device was placed in 2 core biopsies were attempted of the right lobe of the liver. First biopsy did not return significant material so the second biopsy was performed. Nora that I had an adequate core with that. Getting access in order to cauterize this remains somewhat challenging cauterized and then made sure I had hemostasis. Subhepatic space was inspected it was hemostatic. The right upper quadrant was irrigated and aspirated free of excess fluid. At this point I elected not to pursue additional course for risk of occult bleeding. The cores were placed on Telfa immediately placed in formalin. The abdomen was allowed to deflate through an antiviral valve. The fascia at the supraumbilical site had to be slightly lengthened vertically in order for removal of the very dominant stone. Trochars were removed. The midline fascia was closed with a running 0 PDS. Skin edges approximated running or interrupted subdermal 4- 0 Monocryl. Steri-Strips Telfa OpSite dressings applied. Sponge and instrument and needle counts were reported to the surgeon to be correct. Specimen gallbladder and right lobe liver core biopsies. Drains none. Blood loss minimal. The patient was taken to the recovery area in satisfactory addition without apparent complication Toro Epstein M.D., F.A.C.S. Surgeon: Toro Epstein Type of Anesthesia: General and Local Anesthesiologist: Clayton Coffman 07/01/21 1611 <Electronically signed by Toro Epstein MD> Cosigner Signature (if applicable): CC: Dr. Odalys Raymond DO; Dr. Toro Epstein MD Signed Odalys Raymond DO Work Phone: Start: 07-01-2021 End: 07-01-2021 Cholangiogram/ O R,Initial Comments: See Note; NOTES: [facility] Imaging Services [address] [place] [address] Cholangiogram/ O R,Initial MR#: [id number] Acct: [id number] Name: ALMA ULLOA Rep #: [id number] : 1985 F 36 From: Vincent arias MD PCP: Dr. Odalys Raymond DO Status: [facility] Study: Cholangiogram/ O R,Initial Date of Exam: 07/01 Exam# [id number] Ordering Dr: Toro Epstein MD STUDY: INTRAOPERATIVE CHOLANGIOGRAM. REASON FOR EXAM: Female, 36 years old. PAIN FLUOROSCOPY TIME (if supplied): ( 33.8 seconds ) minutes/seconds. A cine loop of 145 images was submitted. TECHNIQUE: An intraoperative cholangiogram was performed by the surgeon. Imaging was submitted. COMPARISON: None. FINDINGS: The common bile duct is mildly dilated. There is narrowing of the distal portion of the common bile duct. Only a small amount of contrast is seen entering the duodenum. RAD/Cholangiogram/ O R,Initial IMPRESSION: Narrowing of the distal portion of the common bile duct. Minimal contrast is seen entering the duodenum. Electronically Signed: Vincent Pickard MD at 8:57 EST , CC: Dr. Odalys Raymond DO; Dr. Toro Epstein MD Court Operations Clerk: Signed Odalys Raymond DO Work Phone: Start: 07-01-2021 Cholangiogram/ O R,Initial Dr. Odalys Raymond Work Phone: Start: 07-01-2021 O.R. Fluoro for C-Arm Dr. Odalys Raymond Work Phone: Start: 07-01-2021 End: 07-01-2021 Discharge Instruction Comments: See Note; NOTES: [facility] Medical Records Department [address] [place] [address] Instructions for Home/Discharge Instructions 07/01/21711 MR#: [id number] Acct: [id number] Name: ALMA ULLOA Rep #: [id number] : 1985 36 From: Toro Epstein MD PCP: Dr. Odalys Raymond DO Status:[facility] Discharge Instructions Procedure General Surgery Diet Discharge Diet: Light diet - advance as tolerated (if you have questions about your diet instructions, please talk to you doctor.) Activity Discharge Activity: May Not Drive (for 3-5 days or while taking narcotic pain medicine.) May shower in (days): 1 Lifting Restrictions: 10 pounds Dressing / Incision Call your doctor if your incision/area has: Continuous Slow Oozing, Sudden Increased Bleeding, Increased Pain/ Swelling, Increased Redness and Foul Smelling Discharge Call your doctor if you observe: Fever of 101 or Higher Suture Line Care: Avoid Pulling/Pushing and Avoid Pinching/Bending Additional Dressing/Incision Instructions:: Change or remove dressing in 4 days. Leave steri-strips in place for 1 week. Follow Up Care Please Follow Up With: Toro Epstein MD When: Call [phone] to make an appointment to be seen in about 10 days. Test Results: Test results from this visit will be discussed in further detail at your follow-up appointment, if applicable. Discharge Plan Admission Attending Provider: Toro Epstein Primary Care Provider: Odalys Raymond Discharge Orders/Prescriptions Prescriptions: No Action dicyclomine 20 mg tablet 20 mg PO TID PRN (Reason: diarrhea and cramps) Qty: 90 RF: 1 metformin 500 mg tablet 500 mg PO DAILY RF: 0 budesonide [Entocort EC] 3 mg capsule,delayed,extend.rel ease 6 mg PO DAILY RF: 0 esomeprazole magnesium [Nexium] 20 mg capsule,delayed release(DR/EC) 20 mg PO DAILY PRN (Reason: acid reflux) RF: 0 famotidine 20 mg tablet 20 mg PO DAILY PRN (Reason: Acid Reflux) RF: 0 ibuprofen [IBU] 800 mg Tablet 800 mg PO BID PRN (Reason: Pain) RF: 0 escitalopram oxalate 20 mg tablet 20 mg PO DAILY RF: 0 nebivolol [Bystolic] 5 mg Tablet 5 mg PO DAILY RF: 0 cholecalciferol (vitamin D3) [Vitamin D3] 125 mcg (5,000 unit) Tablet 125 mcg PO DAILY RF: 0 Ozempic 1 mg/dose (2 mg/1.5 mL) pen injector 1 mg SUBCUT BERMAN RF: 0 losartan 50 mg Tablet 50 mg PO DAILY RF: 0 07/01/21 1611<Electronically signed by Toro Epstein MD>Toro Epstein MD CC: Dr. Odalys Raymond, DO Signed Odalys Raymond DO Work Phone: Start: 07-01-2021 End: 07-01-2021 History and Physical Exam Comments: See Note; NOTES: [facility] Medical Records Department [address] [place] [address] History Physical Exam 07/01/21 0657 MR#: [id number] Acct: [id number] Name: ALMA ULLOA Rep #: [id number] : 1985 36 From: Toro Epstein MD PCP: Dr. Odalys Raymond, DO Status:[facility] Location: [place] [address] History and Physical Date of Admission: 07/01/21 Intake Visit Reasons: GALLBLADDER Chief Complaint: Gallstone Education And Development Manager Required: No Is patient in pain?: No Allergies No Known Allergies Allergy (Verified 06/27/21 09:40) Medications cholecalciferol (vitamin D3) [Vitamin D3] 125 mcg PO DAILY 11/23/20 [History Confirmed 06/27/21] escitalopram oxalate 20 mg PO DAILY 11/23/20 [History Confirmed 06/27/21] ibuprofen [IBU] 800 mg PO BID PRN 11/23/20 [History Confirmed 06/27/21] nebivolol [Bystolic] 5 mg PO DAILY 11/23/20 [History Confirmed 06/27/21] dicyclomine 20 mg tablet 20 mg PO TID PRN #90 tab 06/07/21 [Rx Confirmed 06/27/21] budesonide 3 mg capsule,delayed,extended release 6 mg PO DAILY ea 06/27/21 [History Confirmed 06/27/21] esomeprazole magnesium 20 mg capsule,delayed release 20 mg PO DAILY PRN 06/27/21 [History Confirmed 06/27/21] famotidine 20 mg tablet 20 mg PO DAILY PRN 06/27/21 [History Confirmed 06/27/21] metformin 500 mg tablet 500 mg PO DAILY tab 06/27/21 [History Confirmed 06/27/21] semaglutide 1 mg/dose (2 mg/1.5 mL) subcutaneous pen injector 1 mg SUBCUT QWEEK ml 06/27/21 [History Confirmed 06/27/21] [facility] Medical History (Updated 06/27/21 @ 10:[address] Toro Epstein MD) Abnormal coagulation profile Anxiety Chest pain of uncertain etiology Cholelithiasis CPAP (continuous positive airway pressure) dependence Depression Diabetes Diarrhea Epigastric pain Fatty (change of) liver, not elsewhere classified Fatty liver Gastric reflux Gastroparesis Generalized weakness Hypertension Migraine headache Non-smoker PCOS (polycystic ovarian syndrome) Pre-diabetes Sleep apnea Wears glasses Surgical History (Updated 06/27/21 @ 09:34 by Lexie Lerma) No history of previous surgery Family History Father Hypertension CVA (cerebral vascular accident) High blood cholesterol Mother Hypertension Thyroid disorder Asthma Social History (Updated 06/27/21 @ 09:36 by Lexie Lerma) Smoking Status: Never smoker alcohol intake: never substance use type: does not use HPI HPI HPI: ALMA ULLOA, is a 36 F who presents to the office today for surgical consultation regarding removal of her gallbladder and liver biopsy. The patient is referred by Dr. Joe Arias and Isidra Wallace CNP and a written copy of my surgical consult recommendations will return to them. The patient has had a gastroenterology work-up for chronic diarrhea cramping and urgency. She had an upper and lower endoscopy. The lower endoscopy was hampered secondary to a poor bowel prep. Random biopsies were negative. Apparently there is still is concerned about the possibility of lymphocytic colitis as the patient has an elevated CRP and ESR. Her ESR was 32 and CRP 12.8. The patient is being tried on budesonide and dicyclomine. Her upper endoscopy was compromised by a large amount of food residual within the stomach. Duodenal biopsies were unremarkable. Distal esophageal biopsies showed mild chronic inflammation. Investigations previously on November 23, 2020 with an emergency room visit because of the patient's complaint of chest pain shortness of breath and tachycardia a CTA of the chest demonstrated hepatomegaly with fatty infiltration. A more recent right upper quadrant ultrasound performed May 20, 2021 demonstrates an enlarged liver measuring 20.3 cm with fatty infiltration. Gallbladder wall is 2.6 mm. Solitary gallstone measuring 4.4 x 2.5 x 2.2 cm. Common bile duct 3.1 mm. Elastography was also performed. Median liver stiffness measured 4kPa. The patient is being specifically referred for cholecystectomy and liver biopsy. Medical and surgical care are compromised by body habitus of 134 kg and a BMI of 54 She has also been seen in consultation by Dr. Bob Johnson hematology because of abnormal coagulation profile. Her PT deluded is 48.2 with high normal being 47.6. PTT is 36.6 with high normal being 36.2 The patient claims that about every other month or so she will have these attacks of retrosternal discomfort. She states she had one last night. She took Nexium and within about 30 minutes it resolved. She is not sure whether this is related to her esophagus or possibly gallstone but she presses to the mid retrosternal area and not the abdomen. 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 ROS General General: Yes fatigue; No weight change, appetite, colon cancer, breast cancer or weakness HEENT HEENT: No difficulty swallowing, eye injury, eye surgery, swollen glands or hoarseness Endo Endocrine: Yes diabetes mellitus; No thyroid disease, thyroid cancer, Hair loss, heat intolerance or cold intolerance Skin Skin: No rash or changing moles Breast Breast: No left breast lump, right breast lump, nipple discharge, breast pain, abnormal mammogram, abnormal US or breast enlargement Musc Musculoskeletal: Yes back problems; No arthritis, rheumatoid arthritis, gout or joint pain Cardio Cardiovascular: Yes high blood pressure; No murmur, pacemaker, heart disease, atrial fibrillation, heart attack, heart stent, palpitations, shortness of breat with exertion or chest pain Psych Psychiatric: Yes anxiety; No depression or hearing voices Resp Respiratory: No shortness of breath, Yes sleep apnea, No cough, No COPD, No asthma, No emphysema and No wheezing Gastro Gastrointestinal: Yes abdominal pain, Yes nausea or vomiting, Yes diarrhea, No constipation, No blood in stool, Yes acid reflux, No hemorrhoids, No ulcers, Yes gallbladder problem and No black,tarry stools Renan Hematologic: No blood thinners, No blood disorders, No bleeding, No anemia and No blood clots Neuro Neurologic: No system reviewed and no additional complaints, except as documented, No as per HPI, No abnormal gait, No abnormal hearing, No abnormal movements, No abnormal speech, No behavioral changes, No burning sensations, No confusion, No convulsions, No disequilibrium, No dizziness, No localized weakness, No frequent falls, No headache(s), No lack of coordination, No loss of vision, No memory loss, No numbness, No other visual disturbances, No radicular pain, No restless legs, No sensory deficit, No syncope, No tingling, No tremor(s), No weakness and No other Exam Const General: cooperative, comfortable and no acute distress Nutritional Appearance: obese morbidly obese Orientation: alert and awake [facility] Head: normal to inspection Eyes General: appearance normal, both eyes and all related structures Neck Neck: normal visual inspection Chest Chest palpation inspection: normal inspection of the chest Resp Effort Inspection: normal respiratory effort Auscultation: clear to auscultation bilaterally Cardio Rate: regular rate Rhythm: regular rhythm GI Inspection: obesity Palpation: soft and no hepatosplenomegaly Musc Cervical Spine: normal cervical lordosis Skin General: no rashes or lesions noted Neuro General: patient alert, patient awake and patient oriented x3 Extrem General: no calf tenderness Psych Appearance: grossly normal Assessment and Plan Assessment and Plan (1) Fatty liver: Status: Acute (2) Cholelithiasis: Status: Acute Qualifiers: Cholelithiasis location: gallbladder Cholecystitis presence: with cholecystitis Cholecystitis acuity: chronic Biliary obstruction: without biliary obstruction Qualified Code(s): K80.10 - Calculus of gallbladder with chronic cholecystitis without obstruction (3) Cholelithiasis with chronic cholecystitis: Status: Chronic Qualifiers: Cholelithiasis location: gallbladder Biliary obstruction: without biliary obstruction Qualified Code(s): K80.10 - Calculus of gallbladder with chronic cholecystitis without obstruction Plan - Dr. Toro Epstein MD: 36-year-old female. 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 There are multiple ongoing medical issues and symptoms being evaluated. Whether her intermittent infrequent episodes of retrosternal pain is related to the gallbladder is less likely and the patient is aware of this. I have discussed with the patient a laparoscopic cholecystectomy with selective cholangiograms and Ger-Cut needle core liver biopsy. She is aware of the technique, benefit, risk of alternatives. She is aware that her body habitus does place her at increased difficulty and risk. She is aware that additional port sites may be required. The large gallstone may inhibit our ability to elevate the right lobe of the liver as does the size and weight of the liver. She is aware of the potential need to convert to only a partial cholecystectomy. She is aware of potential injury to the common bile duct. She is aware of possible conversion to an open technique but this would not be a desirable conversion again secondary to her habitus. In order to assist her ongoing gastroenterology management I feel that it is pertinent and indicated to proceed with a laparoscopic cholecystectomy. As requested liver biopsy will be performed. She has had an opportunity to ask and have questions answered. She is asking that we expedite her care. Appreciate the opportunity of assisting with the surgical management Copy: Dr. Joe Arias and Isidra Wallace, FRANCISCO J and Dr. Odalys Raymond and Dr. Bob Epstein M.D., F.A.C.S. I have re-examined the patient. There are no clinical changes since date of exam. 07/01/21 07 <Electronically signed by Toro Epstein MD> Cosigner Signature (if applicable): CC: Dr. Odalys Raymond DO; Dr. Toro Epstein MD Signed Odalys Raymond DO Work Phone: Start: 06-27-2021 End: 06-27-2021 Surgery Visit Report Comments: See Note; NOTES: [facility] [address] [place] [address] OFFICE VISIT Date of Service: 06/27/21 MR#: [id number] Acct: [id number] Name: ALMA ULLOA Rep #: [id number] : 1985 Provider: Dr. Toro lange MD Age/Sex: 36/F Location: [facility] Status: Signed Intake Vital Signs 06/27/21 09:36 Height 5 ft 2 in Weight: 293 lb 4 oz BMI 53.6 BP 122/80 H Blood Pressure Location Rt brachial Position Sitting Respiration 18 Pulse 88 Pulse Source Monitor Temp 97.4 F L Temp Source Temporal Pulse Oximetry (%) 96 Oxygen Delivery Method room air Intake Visit Reasons: GALLBLADDER Chief Complaint: Gallstone Education And Development Manager Required: No Is patient in pain?: No Allergies No Known Allergies Allergy (Verified 06/27/21 09:40) Medications cholecalciferol (vitamin D3) [Vitamin D3] 125 mcg PO DAILY 11/23/20 [History Confirmed 06/27/21] escitalopram oxalate 20 mg PO DAILY 11/23/20 [History Confirmed 06/27/21] ibuprofen [IBU] 800 mg PO BID PRN 11/23/20 [History Confirmed 06/27/21] nebivolol [Bystolic] 5 mg PO DAILY 11/23/20 [History Confirmed 06/27/21] dicyclomine 20 mg tablet 20 mg PO TID PRN #90 tab 06/07/21 [Rx Confirmed 06/27/21] budesonide 3 mg capsule,delayed,extended release 6 mg PO DAILY ea 06/27/21 [History Confirmed 06/27/21] esomeprazole magnesium 20 mg capsule,delayed release 20 mg PO DAILY PRN 06/27/21 [History Confirmed 06/27/21] famotidine 20 mg tablet 20 mg PO DAILY PRN 06/27/21 [History Confirmed 06/27/21] metformin 500 mg tablet 500 mg PO DAILY tab 06/27/21 [History Confirmed 06/27/21] semaglutide 1 mg/dose (2 mg/1.5 mL) subcutaneous pen injector 1 mg SUBCUT QWEEK ml 06/27/21 [History Confirmed 06/27/21] [facility] Medical History (Updated 06/27/21 @ 10:[address] Toro Epstein MD) Abnormal coagulation profile Anxiety Chest pain of uncertain etiology Cholelithiasis CPAP (continuous positive airway pressure) dependence Depression Diabetes Diarrhea Epigastric pain Fatty (change of) liver, not elsewhere classified Fatty liver Gastric reflux Gastroparesis Generalized weakness Hypertension Migraine headache Non-smoker PCOS (polycystic ovarian syndrome) Pre-diabetes Sleep apnea Wears glasses Surgical History (Updated 06/27/21 @ 09:34 by Lexie Lerma) No history of previous surgery Family History Father Hypertension CVA (cerebral vascular accident) High blood cholesterol Mother Hypertension Thyroid disorder Asthma Social History (Updated 06/27/21 @ 09:36 by Lexie Lerma) Smoking Status: Never smoker alcohol intake: never substance use type: does not use HPI HPI HPI: ALMA ULLOA, is a 36 F who presents to the office today for surgical consultation regarding removal of her gallbladder and liver biopsy. The patient is referred by Dr. Joe Arias and Isidra Wallace CNP and a written copy of my surgical consult recommendations will return to them. The patient has had a gastroenterology work-up for chronic diarrhea cramping and urgency. She had an upper and lower endoscopy. The lower endoscopy was hampered secondary to a poor bowel prep. Random biopsies were negative. Apparently there is still is concerned about the possibility of lymphocytic colitis as the patient has an elevated CRP and ESR. Her ESR was 32 and CRP 12.8. The patient is being tried on budesonide and dicyclomine. Her upper endoscopy was compromised by a large amount of food residual within the stomach. Duodenal biopsies were unremarkable. Distal esophageal biopsies showed mild chronic inflammation. Investigations previously on November 23, 2020 with an emergency room visit because of the patient's complaint of chest pain shortness of breath and tachycardia a CTA of the chest demonstrated hepatomegaly with fatty infiltration. A more recent right upper quadrant ultrasound performed May 20, 2021 demonstrates an enlarged liver measuring 20.3 cm with fatty infiltration. Gallbladder wall is 2.6 mm. Solitary gallstone measuring 4.4 x 2.5 x 2.2 cm. Common bile duct 3.1 mm. Elastography was also performed. Median liver stiffness measured 4kPa. The patient is being specifically referred for cholecystectomy and liver biopsy. Medical and surgical care are compromised by body habitus of 134 kg and a BMI of 54 She has also been seen in consultation by Dr. Bob Johnson hematology because of abnormal coagulation profile. Her PT deluded is 48.2 with high normal being 47.6. PTT is 36.6 with high normal being 36.2 The patient claims that about every other month or so she will have these attacks of retrosternal discomfort. She states she had one last night. She took Nexium and within about 30 minutes it resolved. She is not sure whether this is related to her esophagus or possibly gallstone but she presses to the mid retrosternal area and not the abdomen. 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 ROS General General: Yes fatigue; No weight change, appetite, colon cancer, breast cancer or weakness HEENT HEENT: No difficulty swallowing, eye injury, eye surgery, swollen glands or hoarseness Endo Endocrine: Yes diabetes mellitus; No thyroid disease, thyroid cancer, Hair loss, heat intolerance or cold intolerance Skin Skin: No rash or changing moles Breast Breast: No left breast lump, right breast lump, nipple discharge, breast pain, abnormal mammogram, abnormal US or breast enlargement Musc Musculoskeletal: Yes back problems; No arthritis, rheumatoid arthritis, gout or joint pain Cardio Cardiovascular: Yes high blood pressure; No murmur, pacemaker, heart disease, atrial fibrillation, heart attack, heart stent, palpitations, shortness of breat with exertion or chest pain Psych Psychiatric: Yes anxiety; No depression or hearing voices Resp Respiratory: No shortness of breath, Yes sleep apnea, No cough, No COPD, No asthma, No emphysema and No wheezing Gastro Gastrointestinal: Yes abdominal pain, Yes nausea or vomiting, Yes diarrhea, No constipation, No blood in stool, Yes acid reflux, No hemorrhoids, No ulcers, Yes gallbladder problem and No black,tarry stools Renan Hematologic: No blood thinners, No blood disorders, No bleeding, No anemia and No blood clots Neuro Neurologic: No system reviewed and no additional complaints, except as documented, No as per HPI, No abnormal gait, No abnormal hearing, No abnormal movements, No abnormal speech, No behavioral changes, No burning sensations, No confusion, No convulsions, No disequilibrium, No dizziness, No localized weakness, No frequent falls, No headache(s), No lack of coordination, No loss of vision, No memory loss, No numbness, No other visual disturbances, No radicular pain, No restless legs, No sensory deficit, No syncope, No tingling, No tremor(s), No weakness and No other Exam Const General: cooperative, comfortable and no acute distress Nutritional Appearance: obese morbidly obese Orientation: alert and awake [facility] Head: normal to inspection Eyes General: appearance normal, both eyes and all related structures Neck Neck: normal visual inspection Chest Chest palpation inspection: normal inspection of the chest Resp Effort Inspection: normal respiratory effort Auscultation: clear to auscultation bilaterally Cardio Rate: regular rate Rhythm: regular rhythm GI Inspection: obesity Palpation: soft and no hepatosplenomegaly Musc Cervical Spine: normal cervical lordosis Skin General: no rashes or lesions noted Neuro General: patient alert, patient awake and patient oriented x3 Extrem General: no calf tenderness Psych Appearance: grossly normal Assessment and Plan Assessment and Plan (1) Fatty liver: Status: Acute (2) Cholelithiasis: Status: Acute Qualifiers: Cholelithiasis location: gallbladder Cholecystitis presence: with cholecystitis Cholecystitis acuity: chronic Biliary obstruction: without biliary obstruction Qualified Code(s): K80.10 - Calculus of gallbladder with chronic cholecystitis without obstruction (3) Cholelithiasis with chronic cholecystitis: Status: Chronic Qualifiers: Cholelithiasis location: gallbladder Biliary obstruction: without biliary obstruction Qualified Code(s): K80.10 - Calculus of gallbladder with chronic cholecystitis without obstruction Plan - Dr. Toro Epstein MD: 36-year-old female. 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 There are multiple ongoing medical issues and symptoms being evaluated. Whether her intermittent infrequent episodes of retrosternal pain is related to the gallbladder is less likely and the patient is aware of this. I have discussed with the patient a laparoscopic cholecystectomy with selective cholangiograms and Ger-Cut needle core liver biopsy. She is aware of the technique, benefit, risk of alternatives. She is aware that her body habitus does place her at increased difficulty and risk. She is aware that additional port sites may be required. The large gallstone may inhibit our ability to elevate the right lobe of the liver as does the size and weight of the liver. She is aware of the potential need to convert to only a partial cholecystectomy. She is aware of potential injury to the common bile duct. She is aware of possible conversion to an open technique but this would not be a desirable conversion again secondary to her habitus. In order to assist her ongoing gastroenterology management I feel that it is pertinent and indicated to proceed with a laparoscopic cholecystectomy. As requested liver biopsy will be performed. She has had an opportunity to ask and have questions answered. She is asking that we expedite her care. Appreciate the opportunity of assisting with the surgical management Copy: Dr. Joe Arias and Isidra Wallace, FRANCISCO J and Dr. Odalys Raymond and Dr. Bob Epstein M.D., F.A.C.S. Coding Level of Care Code 80279 Diagnoses Fatty liver K76.0 Cholelithiasis K80.10 Cholelithiasis location: gallbladder Cholecystitis presence: with cholecystitis Cholecystitis acuity: chronic Biliary obstruction: without biliary obstruction Cholelithiasis with chronic cholecystitis K80.10 Cholelithiasis location: gallbladder Biliary obstruction: without biliary obstruction 06/27/21 1016 <Electronically signed by Toro Epstein MD> Date Toro Epstein MD Cosigner Signature: Date (if applicable) CC: ARLEEN Wallace; Dr. Odalys Raymond DO; DO Odalys De Luna DO Work Phone: Start: 06-07-2021 End: 06-07-2021 Gastroenterology Visit Report Comments: See Note; NOTES: [facility] [address] [place] [address] OFFICE VISIT Date of Service: 06/07/21 MR#: [id number] Acct: [id number] Name: ALMA ULLOA Rep #: [id number] : 1985 Provider: ARLEEN Wallace Age/Sex: 36/F Location: [facility] Status: Signed Intake Intake Visit Reasons: 2 WK FU COLON Allergies No Known Allergies Allergy (Verified 05/23/21 08:17) Medications buspirone 15 mg PO DAILY 11/23/20 [History Confirmed 05/22/21] cetirizine 10 mg PO DAILY 11/23/20 [History Confirmed 05/22/21] cholecalciferol (vitamin D3) [Vitamin D3] 125 mcg PO DAILY 11/23/20 [History Confirmed 05/22/21] escitalopram oxalate 20 mg PO DAILY 11/23/20 [History Confirmed 05/22/21] ibuprofen [IBU] 800 mg PO BID PRN 11/23/20 [History Confirmed 05/22/21] nebivolol [Bystolic] 5 mg PO DAILY 11/23/20 [History Confirmed 05/22/21] semaglutide [Ozempic] 1 mg SUBCUT BERMAN 05/16/21 [History Confirmed 05/22/21] metformin 500 mg tablet ea PO 05/22/21 [History Confirmed 05/22/21] budesonide 3 mg capsule,delayed,extended release 9 mg PO DAILY #90 ea 06/07/21 [Rx Confirmed 06/07/21] dicyclomine 20 mg tablet 20 mg PO TID PRN #90 tab 06/07/21 [Rx Confirmed 06/07/21] PFSH Medical History Anxiety CPAP (continuous positive airway pressure) dependence Depression Diabetes Fatty (change of) liver, not elsewhere classified Gastric reflux Hypertension Migraine headache Non-smoker PCOS (polycystic ovarian syndrome) Pre-diabetes Sleep apnea Wears glasses Family History Father Hypertension CVA (cerebral vascular accident) Mother Hypertension Social History (Reviewed 05/22/21 @ 15:33 by Kathi Morrow Smoking Status: Never smoker HPI HPI Details: ALMA ULLOA, is a 36 F who presents to the office today for discussion of EGD and colonoscopy results as well as liver elastography She reports lifelong diarrhea. Significantly worse since starting Ozempic 6 months ago. Gets cramps and urgency. Sees undigested food, vegetables. Occas normal BM; this was the case after endoscopies but rarely happens. No relief with loperamide. No hx of rx meds for diarrhea. Her mother was on bentyl, she is interested in trying that. Tried FiberCon x 2 wks w/o relief. EGD: LA grade A esophagitis, large amount of food residue in the stomach. Colonoscopy: Large amount of retained stool, poor visualization. No pathology found on biopsies. Right upper quadrant ultrasound: Liver 20.3 cm with fatty infiltration. 4.4 cm gallstone FibroScan: 4 kPa, F0 Metavir score. ROS Gastro GI: Positive for bloating, diarrhea and heartburn Musc Musculoskeletal: Positive for back pain Psych Psychiatric: Positive for anxiety Exam Const General: cooperative, no acute distress, well developed and well groomed Quality Reporting Tobacco Screening ([facility] 138) Smoking Status: Never smoker Assessment and Plan Assessment and Plan (1) Cholelithiasis: Status: Acute (2) Diarrhea: Status: Acute (3) Fatty liver: Status: Acute (4) Gastroparesis: Status: Acute Orders: Referrals: General Surgery K80.20 Plan: 36-year-old female with chronic diarrhea with cramping and urgency. We discussed her EGD and colonoscopy results. Biopsies on colonoscopy were negative however they might not be reliable due to poor prep; her symptoms along with elevated CRP and ESR indicate the possibility of lymphocytic colitis. She will try budesonide 9 mg daily as well as dicyclomine as needed. We also discussed results from her right upper quadrant ultrasound and liver elastography. We are referring to general surgery for the large gallstone. Dr. Arias requests liver biopsy be done at the time of cholecystectomy if possible; although her FibroScan score is F0, a biopsy will be more reliable. Also discussed gastroparesis. Dr. Arias believes she may have some improvements with gastroparesis due to digestion improving by improvement in poor admixture. Follow-up 6 weeks Plan Details Other Medications: New: dicyclomine 20 mg PO TID PRN 90 tabs 1RF diarrhea and cramps budesonide ER 9 mg (3 x 3 mg) PO DAILY 90 ea 2RF Coding Level of Care Code Off vis,est,level 4 Diagnoses Cholelithiasis K80.20 Diarrhea R19.7 Fatty liver K76.0 Gastroparesis K31.84 06/07/21 1430 <Electronically signed by Isidra Wallace ROD BENDING MACHINE OPERATOR ROD BENDING MACHINE OPERATOR-C> Date Isidra Wallace ROD BENDING MACHINE OPERATOR ROD BENDING MACHINE OPERATOR-C Cosigner Signature: Date (if applicable) CC: DO Odalys Delgado DO Work Phone: Start: 05-23-2021 End: 01-29-2022 Colonoscopy Report Comments: See Note; NOTES: [facility] Medical Records Department [address] [place] [address] Colonoscopy Report MR#: [id number] Acct: [id number] Name: ALMA ULLOA Rep #: [id number] : 1985 36 From: Joe Arias DO PCP: Dr. Odalys Raymond DO Status:[facility] Patient Name: Alma Ulloa Procedure Date: 05/23/2021 9:07 AM Date of : 1985 Age: 36 Procedure: Colonoscopy Indications: Chronic diarrhea Providers: Joe Arias DO Medicines: See the Anesthesia note for documentation of the administered medications Patient Profile: This is a 36 year old female. Refer to note in patient chart for documentation of history and physical. Patient has symptoms of chronic nausea. Last Colonoscopy: none. The patient's first colonoscopy is today. Complications: No immediate complications. Procedure: Pre-Anesthesia Assessment: - Prior to the procedure, a History and Physical was performed, and patient medications and allergies were reviewed. The risks and benefits of the procedure and the sedation options and risks were discussed with the patient. All questions were answered and informed consent was obtained. Patient identification and proposed procedure were verified by the physician in the pre-procedure area. Mental Status Examination: alert and oriented. Airway Examination: normal oropharyngeal airway and neck mobility. Respiratory Examination: clear to auscultation. CV Examination: normal. Prophylactic Antibiotics: The patient does not require prophylactic antibiotics. Prior Anticoagulants: The patient has taken no previous anticoagulant or antiplatelet agents. ASA Grade Assessment: II - A patient with mild systemic disease. After reviewing the risks and benefits, the patient was deemed in satisfactory condition to undergo the procedure. The anesthesia plan was to use moderate sedation / analgesia (conscious sedation). Immediately prior to administration of medications, the patient was re-assessed for adequacy to receive sedatives. The heart rate, respiratory rate, oxygen saturations, blood pressure, adequacy of pulmonary ventilation, and response to care were monitored throughout the procedure. The physical status of the patient was re-assessed after the procedure. After I obtained informed consent, the scope was passed under direct vision. Throughout the procedure, the patient's blood pressure, pulse, and oxygen saturations were monitored continuously. The pediatric colonoscope was introduced through the anus and advanced to the terminal ileum. The colonoscopy was performed without difficulty. The patient tolerated the procedure well. The quality of the bowel preparation was poor. Moderate Sedation: Moderate (conscious) sedation was administered by the endoscopy nurse and supervised by the endoscopist. The patient's oxygen saturation, heart rate, blood pressure and response to care were monitored. Total physician intraservice time was 15 minutes. Scope In: 9:12:27 AM Scope Withdrawal Time 0 hours 11 minutes 53 seconds Scope Out: 9:28:28 AM Total Procedure Duration Time 0 hours 16 minutes 1 second Findings: The perianal and digital rectal examinations were normal. A large amount of stool was found in the rectum, in the recto-sigmoid colon, in the sigmoid colon, in the descending colon, at the splenic flexure, in the ascending colon and in the cecum, precluding visualization. Lavage of the area was performed using a small amount of sterile water, resulting in incomplete clearance with continued poor visualization. An area of mildly congested mucosa was found in the ascending colon. Biopsies were taken with a cold forceps for histology. Verification of patient identification for the specimen was done. Estimated blood loss was minimal. Impression: - Preparation of the colon was poor. - Stool in the rectum, in the recto-sigmoid colon, in the sigmoid colon, in the descending colon, at the splenic flexure, in the ascending colon and in the cecum. - Congested mucosa in the ascending colon. Biopsied. Recommendation: - Discharge patient to home. - Resume previous diet. - Continue present medications. - Await pathology results. - Repeat colonoscopy in 6 months because the bowel preparation was suboptimal. - Return to GI office in 2 weeks. Procedure Code(s): --- Professional --- 06326, Colonoscopy, flexible; with biopsy, single or multiple 22988, 59, Moderate sedation services provided by the same physician or other qualified health resident caregiver performing the diagnostic or therapeutic service that the sedation supports, requiring the presence of an independent trained observer to assist in the monitoring of the patient's level of consciousness and physiological status; initial 15 minutes of intraservice time, patient age 5 years or older CPT copyright 2017 [employer]. All rights reserved. The codes documented in this report are preliminary and upon audio engineer review may be revised to meet current compliance requirements. Joe Arias DO 05/23/2021 9:33:49 AM This report has been signed electronically. Number of Addenda: 0 Note Initiated On: 05/23/2021 9:07 AM 05/23/21932 Date Joe Arias DO Cosigner Signature: Date (if indicated) CC: Dr. Odalys Raymond DO; Joe Arias DO Date Dictated: 05/23/21906 Date Transcribed: Court Operations Clerk: ERIC Signed Odalys Raymond DO Work Phone: Start: 05-23-2021 End: 01-29-2022 EGD Report Comments: See Note; NOTES: [facility] Medical Records Department [address] [place] [address] [place] [address] EGD Report MR#: [id number] Acct: [id number] Name: ALMA ULLOA Rep #: [id number] : 1985 36 From: Joe Arias DO PCP: Dr. Odalys Raymond DO Status:[facility] Patient Name: Alma Ulloa Procedure Date: 05/23/2021 8:47 AM Date of : 1985 Age: 36 Procedure: Upper GI endoscopy Indications: Dyspepsia Providers: Joe Arias DO Medicines: See the Anesthesia note for documentation of the administered medications Patient Profile: This is a 36 year old female. Refer to note in patient chart for documentation of history and physical. Patient has symptoms of chronic nausea. Complications: No immediate complications. Procedure: Pre-Anesthesia Assessment: - Prior to the procedure, a History and Physical was performed, and patient medications and allergies were reviewed. The risks and benefits of the procedure and the sedation options and risks were discussed with the patient. All questions were answered and informed consent was obtained. Patient identification and proposed procedure were verified by the physician in the pre-procedure area. Mental Status Examination: alert and oriented. Airway Examination: normal oropharyngeal airway and neck mobility. Respiratory Examination: clear to auscultation. CV Examination: normal. Prophylactic Antibiotics: The patient does not require prophylactic antibiotics. Prior Anticoagulants: The patient has taken no previous anticoagulant or antiplatelet agents. ASA Grade Assessment: II - A patient with mild systemic disease. After reviewing the risks and benefits, the patient was deemed in satisfactory condition to undergo the procedure. The anesthesia plan was to use moderate sedation / analgesia (conscious sedation). Immediately prior to administration of medications, the patient was re-assessed for adequacy to receive sedatives. The heart rate, respiratory rate, oxygen saturations, blood pressure, adequacy of pulmonary ventilation, and response to care were monitored throughout the procedure. The physical status of the patient was re-assessed after the procedure. After obtaining informed consent, the endoscope was passed under direct vision. Throughout the procedure, the patient's blood pressure, pulse, and oxygen saturations were monitored continuously. The Endoscope was introduced through the mouth, and advanced to the second part of duodenum. The upper GI endoscopy was accomplished without difficulty. The patient tolerated the procedure well. Moderate Sedation: Moderate (conscious) sedation was administered by the endoscopy nurse and supervised by the endoscopist. The patient's oxygen saturation, heart rate, blood pressure and response to care were monitored. Total physician intraservice time was 15 minutes. Scope In: 9:00:54 AM Scope Out: 9:05:33 AM Total Procedure Duration Time 0 hours 4 minutes 39 seconds Findings: LA Grade A (one or more mucosal breaks less than 5 mm, not extending between tops of 2 mucosal folds) esophagitis with no bleeding was found 34 to 35 cm from the incisors. Biopsies were taken with a cold forceps for histology. Verification of patient identification for the specimen was done. Estimated blood loss was minimal. A large amount of food (residue) was found in the entire examined stomach. Scattered moderate inflammation characterized by congestion (edema) was found in the duodenal bulb, in the first portion of the duodenum and in the second portion of the duodenum. Biopsies were taken with a cold forceps for histology. Verification of patient identification for the specimen was done. Estimated blood loss was minimal. Biopsies were taken with a cold forceps for histology. Verification of patient identification for the specimen was done. Impression: - LA Grade A reflux esophagitis. Biopsied. - A large amount of food (residue) in the stomach. Recommendation: - Written discharge instructions were provided to the patient. - The signs and symptoms of potential delayed complications were discussed with the patient. - Patient has a contact number available for emergencies. - Return to normal activities tomorrow. - Resume previous diet. - Continue present medications. - Await pathology results. - Repeat upper endoscopy in 1 year for surveillance. - Return to GI clinic in 2 weeks. Procedure Code(s): --- Professional --- 51731, 59, Esophagogastroduodenoscopy , flexible, transoral; with biopsy, single or multiple 51580, 59, Moderate sedation services provided by the same physician or other qualified health resident caregiver performing the diagnostic or therapeutic service that the sedation supports, requiring the presence of an independent trained observer to assist in the monitoring of the patient's level of consciousness and physiological status; initial 15 minutes of intraservice time, patient age 5 years or older CPT copyright 2017 [employer]. All rights reserved. The codes documented in this report are preliminary and upon audio engineer review may be revised to meet current compliance requirements. Joe Arias DO 05/23/2021 9:10:22 AM This report has been signed electronically. Number of Addenda: 0 Note Initiated On: 05/23/2021 8:47 AM 05/23/2110 Date Joe Arias DO Cosigner Signature: Date (if indicated) CC: Dr. Odalys Raymond DO; Joe Arias DO Date Dictated: 05/23/21846 Date Transcribed: Court Operations Clerk: ERIC Signed Odalys Raymond DO Work Phone: Start: 05-23-2021 End: 05-23-2021 History and Physical Exam Comments: See Note; NOTES: [facility] Medical Records Department [address] [place] [address] History Physical Exam 05/23/21 0837 MR#: [id number] Acct: [id number] Name: ALMA ULLOA Rep #: [id number] : 1985 36 From: Joe Arias DO PCP: Dr. Odalys Raymond DO Status:[facility] Location: [place] [address] History and Physical Date of Admission: 05/23/21 35 F who presents to the office today for evaluation of diarrhea. She also has been having some abdominal pain. 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 Her diarrhea and abdominal pain got significantly better after being on Metformin. Currently for which she is on Ozempic. Back to doing very well from the medicine. However her diarrhea has gotten to the point she is having nocturnal diarrhea. She has difficulty with diarrhea each day with 5-10 episodes a day. She has attempted bland diets. Vegetables, salads, processed foods, eating out all trigger. COVID diagnosis in September. Worried because health issues have worsened to include DMII and worsened HTN. PCP attempted metformin which worsened diarrhea. Ozempic taking now and feels this is delaying her gastric emptying and causing worsening diarrhea. Reporting 20lb weight loss since November 2021. Also reports gas and bloating. Sigmoidoscopy performed 10 years prior, she reports nothing abnormal. Chest CTA 11/23/20 performed during ED visit with findings of enlarged liver and fatty infiltration. ROS Const Constitutional: Positive for fatigue and headache(s) ENT ENT: Positive for nasal congestion, headache(s) and sore throat Gastro GI: Positive for abdominal pain, bloating, diarrhea and heartburn Musc Musculoskeletal: Positive for back pain Neuro Neurology: Positive for headache(s) Psych Psychiatric: Positive for anxiety Endo Endocrine: Positive for fatigue Exam Const General: cooperative and comfortable Nutritional Appearance: average body habitus and well nourished HENMT Head: normal to inspection Ears: hearing grossly normal bilaterally Nose: external nose normal Face and sinus: normal facial exam Mouth: oral mucosae normal Throat: posterior oropharynx normal Eyes General: appearance normal, both eyes and all related structures Neck Neck: normal visual inspection Chest Chest palpation inspection: normal inspection of the chest and normal palpation of entire chest wall Resp Effort Inspection: normal respiratory effort Auscultation: Bilateral: Clear to Auscultation Cardio Palpation: normal PMI Rate: regular rate Rhythm: regular rhythm GI Inspection: normal to inspection Auscultation: normal bowel sounds Percussion: normal to percussion Palpation: no hepatosplenomegaly Skin General: no rashes or lesions noted Neuro General: patient alert Extrem General: normal to inspection Psych Affect: normal affect Quality Reporting Tobacco Screening ([facility] 138) Smoking Status: Never smoker Assessment and Plan Assessment and Plan (1) Diarrhea: Status: Acute Orders: Orders: Colonoscopy Today EGD Today Liver Today Plan - Dr. Diaz Friend, DO: She will undergo colonoscopy. At this time we will also perform stool studies with biopsies. She will undergo biochemical testing. (2) Fatty (change of) liver, not elsewhere classified: Status: Acute Orders: Orders: Colonoscopy Today EGD Today CRP Today LDH Today Erythrocyte Sed Rate Today Anti-Mitochondrial AB Today Angiotensin Convert Enzyme Today ANCA Today Anti-Smooth Muscle ABS Today Antithrombin 3 Function Today Celiac Disease Profile Today Ceruloplasmin Today Copper, Serum or Plasma Today Fact V Leiden Mutation Today Immunoglobulin E Today Immunoglobulin G Today Immunoglobulin M Today Lupus Anticoagulant Comp Today Protein S Antigen Today Hepatitis C Antibody Today EBV Acute Prof IgG / IgM Today Miscellaneous Lab Procedure Today Liver Today Elastography Parenchyma/Organ Today Plan - Dr. Joe Arias DO: Her hepatomegaly is likely secondary to fatty liver disease. However because her PTT is prolonged. We will assess for hypercoagulable disorder and also look for other signs Plan Details Other Medications: New: bisacodyl 5 mg PO ONCE 4 tabs 0RF polyethylene glycol 3350 (Miralax) take as directed for bowel 17 grams PO DAILY 238 grams 0RF I have re-examined the patient. There are no clinical changes since date of exam. 05/23/21 0838 <Electronically signed by Joe Arias DO> Cosigner Signature (if applicable): CC: Dr. Odalys Raymond DO; Joe Arias DO Signed Odalys Raymond DO Work Phone: Start: 05-22-2021 End: 05-22-2021 Oncology Visit Report Comments: See Note; NOTES: [facility] [address] [place] [id number] OFFICE VISIT Date of Service: 05/22/21 1527 MR#: [id number] Acct: [id number] Name: ALMA ULLOA Rep #: [id number] : 1985 From: Bob Johnson MD Age/Sex: 36/F Location: [facility] Status: Signed HPI Subjective Date of Service 05/22/21 Chief Complaint Referred for abnormal coagulation. History of Present Illness 36y.o.woman was found to have abnormal coagulation, DRVV was 53 on 04/26/2021 so referred for further evaluation. [facility] Medical History Anxiety CPAP (continuous positive airway pressure) dependence Depression Diabetes Fatty (change of) liver, not elsewhere classified Gastric reflux Hypertension Migraine headache Non-smoker PCOS (polycystic ovarian syndrome) Pre-diabetes Sleep apnea Wears glasses Family History Father Hypertension CVA (cerebral vascular accident) Mother Hypertension Social History Smoking Status: Never smoker ROS Constitutional Constitutional: Reports systems reviewed and no addt'l complaints, except as documented Eyes Eyes: Reports systems reviewed and no addt'l complaints, except as documented ENT HEENT: Reports systems reviewed and no addt'l complaints, except as documented Cardiovascular Cardiovascular: Reports systems reviewed and no addt'l complaints, except as documented Respiratory/Chest Respiratory/Chest: Reports systems reviewed and no addt'l complaints, except as documented Gastrointestinal Gastrointestinal: Reports systems reviewed and no addt'l complaints, except as documented Genitourinary Genitourinary: Reports systems reviewed and no addt'l complaints, except as documented Musculoskeletal Musculoskeletal: Reports systems reviewed and no addt'l complaints, except as documented Integumentary Integumentary: Reports systems reviewed and no addt'l complaints, except as documented Neurologic Neurologic: Reports systems reviewed and no addt'l complaints, except as documented Psychiatric Psychiatric: Reports systems reviewed and no addt'l complaints, except as documented Endocrine Endocrinology: Reports systems reviewed and no addt'l complaints, except as documented Hematologic/Lymphatic Hematologic/Lymphatic: Reports systems reviewed and no addt'l complaints, except as documented Allergic/Immunologic Allergic/Immunologic: Reports systems reviewed and no addt'l complaints, except as documented Intake Vital Signs 05/22/21 15:27 Height 5 ft 2 in Weight: 134.008 kg BMI 54.0 BP 110/65 Blood Pressure Location Lt femoral Position Sitting Respiration 17 Pulse 65 Pulse Source Monitor Temp 98.2 F Temperature Source Temporal Artery Pulse Oximetry (%) 98 Oxygen Delivery Method room air Intake Education And Development Manager Required: No Accompanied by: Self Is patient in pain?: No Allergies No Known Allergies Allergy (Verified 05/22/21 15:33) Medications buspirone 15 mg PO DAILY 11/23/20 [History Confirmed 05/22/21] cetirizine 10 mg PO DAILY 11/23/20 [History Confirmed 05/22/21] cholecalciferol (vitamin D3) [Vitamin D3] 125 mcg PO DAILY 11/23/20 [History Confirmed 05/22/21] escitalopram oxalate 20 mg PO DAILY 11/23/20 [History Confirmed 05/22/21] ibuprofen [IBU] 800 mg PO BID PRN 11/23/20 [History Confirmed 05/22/21] nebivolol [Bystolic] 5 mg PO DAILY 11/23/20 [History Confirmed 05/22/21] bisacodyl 5 mg tablet,delayed release 5 mg PO ONCE #4 tab 12/03/21 [Rx Confirmed 05/22/21] polyethylene glycol 3350 17 gram/dose oral powder 17 g PO DAILY #238 g 04/26/21 [Rx Confirmed 05/22/21] semaglutide [Ozempic] 1 mg SUBCUT BERMAN 05/16/21 [History Confirmed 05/22/21] metformin 500 mg tablet ea PO 05/22/21 [History Confirmed 05/22/21] Central Venous Access Central Venous Access: No Laboratory Tests 04/26/21 14:35 PT Diluted 48.2 H PT Ratio 0.94 Thrombin Time 17.5 Lupus Anticoag aPTT 45.5 Dil Dinh Viper Venom 53.6 H Free Protein S 122 Total Protein S 109 Func Antithrombin III 88 Factor V Leiden Mutat Comment Exam Physical Exam Const alert, oriented x3, no apparent distress and average body habitus General Appearance: cooperative and comfortable Eyes conjunctivae normal and no scleral icterus Neck supple Lymph Lymphatic: no lymphadenopathy noted Chest inspection of chest normal Resp normal respiratory effort and clear to auscultation bilaterally Cardio regular rate, regular rhythm, S1 normal heart sound, S2 normal heart sound and no murmurs GI normal to inspection, nondistended, normoactive bowel sounds Back/Spine no CVA tenderness and thoracic and lumbar spine normal to inspection Extremity normal to inspection, no joint enlargement and no clubbing, cyanosis or edema Skin no rashes or lesions noted Neuro oriented x3, CN's II-XII intact bilaterally and moves all extremities Psych mental status grossly normal Coding Level of Care Code Off vis,new,level 3 Diagnoses Abnormal coagulation profile R79.1 Assessment and Plan Assessment and Plan (1) Abnormal coagulation profile: Status: Chronic Comment: Changes are not signification for any intervention at this time. Discussed abnormality and work up. Plan - Dr. Bob Johnson MD: To do observation, repeat testing in 3 months. Plan Details Follow Up: 3 Months 05/22/21 6500 <Electronically signed by Bob Johnson MD> Date Bob Johnson MD Cosigner Signature: Date (if applicable) CC: Odalys Raymond DO Work Phone: Start: 05-20-2021 End: 05-27-2021 Liver Comments: See Note; NOTES: [facility] Imaging Services [address] [place] [address] Liver MR#: [id number] Acct: [id number] Name: ALMA ULLOA Rep #: [id number] : 1985 F 36 From: Vincent arias MD PCP: Dr. Odalys Raymond, DO Status: [facility] CLI Study: Liver Date of Exam: 05/20/21 Exam# [id number] Ordering Dr: Joe Arias DO STUDY: ABDOMINAL ULTRASOUND - RIGHT UPPER QUADRANT REASON FOR VISIT: Female, 36 years old fatty liver -- ELASTOGRAPHY ALSO DONE TODAY TECHNIQUE: Ultrasound evaluation of the right upper quadrant was performed with real-time and static winslow-scale imaging. TECHNICAL QUALITY: Adequate. COMPARISON: None. FINDINGS: Liver: The liver is enlarged and measures 20.3 cm. There is increased echogenicity consistent with fatty infiltration. Focal fatty sparing is seen adjacent to the gallbladder fossa. Tithe bile ducts are within normal limits. There is hepatic color flow. The direction of portal flow is hepatopetal. There is no demonstrated mass lesion. Gallbladder: Normal distended gallbladder. The gallbladder wall measures 2.6 mm. There is a negative sonographic Collins''s sign. There is no pericholecystic fluid. There is a solitary echogenic gallstone within the gallbladder. This measures 4.4 cm x 2.5 cm x 2.2 cm. Common Bile Duct (C.B.D.): The common bile duct measures 3.1 mm. Pancreas: Normal size of the head, body and tail of the pancreas. There is increased echogenicity of the pancreas. There is no demonstrated pancreatic mass or cyst. Right Kidney: Normal size of the right kidney. The right kidney measures 12.3 cm x 7.1 cm x 4.4 cm. Normal renal cortex. The right cortex measures 1.9 cm. There is no demonstrated renal mass or cyst. There is no right hydronephrosis. IMPRESSION: Hepatomegaly. Fatty infiltration the liver with focal fatty sparing along the gallbladder fossa. Large solitary gallstone. Electronically Signed: Vincent Pickard MD at 8:53 EST , Service support , STUDY: ABDOMINAL ULTRASOUND - ELASTOGRAPHY REASON FOR VISIT: Female, 36 years old. Fatty infiltration of the liver. Hepatomegaly. TECHNIQUE: Liver stiffness measurements were obtained on a [employer] RS 85 ultrasound machine using a CA 1-7 probe following the SRU guidelines. 3 measurements were obtained using a 2-D-SWE method. The IQR/M was 24% suggesting a quality data set. TECHNICAL QUALITY: Adequate. COMPARISON: Comparison is made with prior sonogram of the right upper quadrant earlier today. FINDINGS: Liver: Hepatomegaly with fatty infiltration of the liver. Median liver stiffness measured 4 kPa. US/Liver IMPRESSION: Liver stiffness measures 4 kPa compatible with F0 Metavir score. Electronically Signed: Vincent Pickard MD at 8:55 EST , Service support , CC: Dr. Odayls Raymond DO; Joe Arias, Court Operations Clerk: Signed Odalys Raymond DO Work Phone: Start: 04-26-2021 End: 04-26-2021 Gastroenterology Visit Report Comments: See Note; NOTES: [facility] [address] [place] [address] OFFICE VISIT Date of Service: 04/26/21 MR#: [id number] Acct: [id number] Name: ALMA ULLOA Rep #: [id number] : 1985 Provider: Joe Arias DO Age/Sex: 35/F Location: [facility] Status: Signed Intake Vital Signs 04/26/21 13:37 Height 5 ft 2 in Weight: 303 lb 4 oz BMI 55.4 Intake Visit Reasons: IBS? Allergies No Known Allergies Allergy (Verified 11/23/20 21:32) [facility] Medical History (Updated 04/26/21 @ 14:[address] Joe Arias DO) Depression Fatty (change of) liver, not elsewhere classified PCOS (polycystic ovarian syndrome) Pre-diabetes Social History Smoking Status: Never smoker HPI HPI Details: ALMA ULLOA, is a 35 F who presents to the office today for evaluation of diarrhea. She also has been having some abdominal pain. 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 Her diarrhea and abdominal pain got significantly better after being on Metformin. Currently for which she is on Ozempic. Back to doing very well from the medicine. However her diarrhea has gotten to the point she is having nocturnal diarrhea. She has difficulty with diarrhea each day with 5-10 episodes a day. She has attempted bland diets. Vegetables, salads, processed foods, eating out all trigger. COVID diagnosis in September. Worried because health issues have worsened to include DMII and worsened HTN. PCP attempted metformin which worsened diarrhea. Ozempic taking now and feels this is delaying her gastric emptying and causing worsening diarrhea. Reporting 20lb weight loss since November 2021. Also reports gas and bloating. Sigmoidoscopy performed 10 years prior, she reports nothing abnormal. Chest CTA 11/23/20 performed during ED visit with findings of enlarged liver and fatty infiltration. ROS Const Constitutional: Positive for fatigue and headache(s) ENT ENT: Positive for nasal congestion, headache(s) and sore throat Gastro GI: Positive for abdominal pain, bloating, diarrhea and heartburn Musc Musculoskeletal: Positive for back pain Neuro Neurology: Positive for headache(s) Psych Psychiatric: Positive for anxiety Endo Endocrine: Positive for fatigue Exam Const General: cooperative and comfortable Nutritional Appearance: average body habitus and well nourished [facility] Head: normal to inspection Ears: hearing grossly normal bilaterally Nose: external nose normal Face and sinus: normal facial exam Mouth: oral mucosae normal Throat: posterior oropharynx normal Eyes General: appearance normal, both eyes and all related structures Neck Neck: normal visual inspection Chest Chest palpation inspection: normal inspection of the chest and normal palpation of entire chest wall Resp Effort Inspection: normal respiratory effort Auscultation: Bilateral: Clear to Auscultation Cardio Palpation: normal PMI Rate: regular rate Rhythm: regular rhythm GI Inspection: normal to inspection Auscultation: normal bowel sounds Percussion: normal to percussion Palpation: no hepatosplenomegaly Skin General: no rashes or lesions noted Neuro General: patient alert Extrem General: normal to inspection Psych Affect: normal affect Quality Reporting Tobacco Screening ([facility] 138) Smoking Status: Never smoker Assessment and Plan Assessment and Plan (1) Diarrhea: Status: Acute Orders: Orders: Colonoscopy Today EGD Today Liver Today Plan - Dr. Diaz Friend, DO: She will undergo colonoscopy. At this time we will also perform stool studies with biopsies. She will undergo biochemical testing. (2) Fatty (change of) liver, not elsewhere classified: Status: Acute Orders: Orders: Colonoscopy Today EGD Today CRP Today LDH Today Erythrocyte Sed Rate Today Anti-Mitochondrial AB Today Angiotensin Convert Enzyme Today ANCA Today Anti-Smooth Muscle ABS Today Antithrombin 3 Function Today Celiac Disease Profile Today Ceruloplasmin Today Copper, Serum or Plasma Today Fact V Leiden Mutation Today Immunoglobulin E Today Immunoglobulin G Today Immunoglobulin M Today Lupus Anticoagulant Comp Today Protein S Antigen Today Hepatitis C Antibody Today EBV Acute Prof IgG / IgM Today Miscellaneous Lab Procedure Today Liver Today Elastography Parenchyma/Organ Today Plan - Dr. Diaz Friend, DO: Her hepatomegaly is likely secondary to fatty liver disease. However because her PTT is prolonged. We will assess for hypercoagulable disorder and also look for other signs Plan Details Other Medications: New: bisacodyl 5 mg PO ONCE 4 tabs 0RF polyethylene glycol 3350 (Miralax) take as directed for bowel 17 grams PO DAILY 238 grams 0RF Coding Level of Care Code Off vis,new,level 4 Diagnoses Diarrhea R19.7 Fatty (change of) liver, not elsewhere classified K76.0 04/26/21 1603 <Electronically signed by Joe Arias DO> Date Joe Arias DO Cosigner Signature: Date (if applicable) CC: Odalys Raymond DO Work Phone: Start: 11-23-2020 End: 11-24-2020 Emergency Department Summary Comments: See Note; NOTES: [facility] Medical Records Department [address] [place] [address] Emergency Department Summary 11/23/20 MR#: [id number] Acct: [id number] Name: ALMA ULLOA Rep #: [id number] : 1985 35 From: Elder Amos DO PCP: Dr. Odalys Raymond DO Status:DEP ER Location: ED HPI History of Present Illness Chief Complaint: Chest Pain Informant: patient Onset/Context/Timing Onset: Today Activity at onset: gradual Timing: Continuous Quality: Positive for Tightness Location: Substernal Worsened By: Nothing Relieved By: Rest Associated Symptoms: Positive for Dyspnea, Lightheadedness and Palpitations; Negative for Nausea, Vomiting, Diaphoresis, Cough, Fever and Acid Reflux Narrative Narrative: Patient presents with chest pain that began today. Patient states that it has been constant all day today. Patient states it feels like a tightness over her upper sternal area. Patient denies any radiation of the pain. Patient states the pain is better with sitting and resting. Patient states nothing makes the pain worse. Patient does admit to some shortness of breath and lightheadedness. Patient states she feels weak and fatigued. Patient also admits to some palpitations. CVD Risk Factors: Positive for Diabetes; Negative for Hypertension, Hypercholesterolemia, Family History 1' </=55 and Smoking PE Risk Factors: Negative for Recent Travel/Surgery, Recent Immobilization, Prior DVT or PE, Cancer and OCP + Smoking + >/=35 PFSH PFSH Medical History (Updated 11/24/20 @ 00:[address] Elder Amos DO) Depression PCOS (polycystic ovarian syndrome) Pre-diabetes Home Medications buspirone 15 mg PO DAILY 11/23/20 [History Last Taken Unknown] cetirizine 10 mg PO DAILY 11/23/20 [History Last Taken Unknown] cholecalciferol (vitamin D3) [Vitamin D3] 125 mcg PO DAILY 11/23/20 [History Last Taken Unknown] escitalopram oxalate 20 mg PO DAILY 11/23/20 [History Last Taken Unknown] ibuprofen [IBU] 800 mg PO BID PRN 11/23/20 [History Last Taken Unknown] metformin 500 mg PO DAILY 11/23/20 [History Last Taken Unknown] nebivolol [Bystolic] 5 mg PO DAILY 11/23/20 [History Last Taken Unknown] Allergy/AdvReac Type Severity Reaction Status Date / Time No Known Allergies Allergy Verified 11/23/20 21:32 no surgical history Social History Smoking Status: Never smoker ROS ROS ED Constitutional Constitutional ED: Denies chills or fever(s) Eyes Eyes: Denies blurry vision or change in vision ENT ENT ED: Denies rhinorrhea or sore throat Cardiovascular Cardiovascular: Reports chest pain and palpitations Respiratory/Chest Respiratory/Chest: Reports dyspnea; Denies cough Gastrointestinal Gastrointestinal: Reports abdominal pain; Denies nausea or vomiting Genitourinary Genitourinary ED: Reports urinary frequency; Denies dysuria or hematuria Musculoskeletal Musculoskeletal: Denies back pain or neck pain Integumentary Denies abscess or rash Neurologic Neurologic: Reports headache(s) and weakness Allergic/Immunologic Allergic/Immunologic ED: Denies mouth swelling or urticaria EXAM Physical Exam Const Vital Signs: 11/23/20 21:28 11/23/20 22:02 11/23/20 22:05 Temperature 97.6 F L Temperature Source Temporal Pulse Rate 107 H Respiratory Rate 20 H Respiratory Effort Short of Breath Respiratory Pattern Normal Blood Pressure 148/89 H Blood Pressure Mean 108 Pulse Ox 98 94 Oxygen Delivery Method Room Air Room Air 11/23/20 22:51 Temperature Temperature Source Pulse Rate 98 Respiratory Rate 17 Respiratory Effort Respiratory Pattern Blood Pressure 155/97 H Blood Pressure Mean 116 Pulse Ox 99 Oxygen Delivery Method Room Air Positive well nourished, well developed and obese General Appearance ED: well developed Nutritional Appearance: obese HEENT normocephalic and atraumatic Eyes PERRL and EOMs intact bilaterally Neck supple and no JVD Chest Wall palpation of chest normal Resp normal respiratory effort and clear to auscultation bilaterally Effort and Inspection: Negative for respiratory distress Cardio regular rate, regular rhythm and no murmurs GI normal to inspection, nondistended, normoactive bowel sounds, soft to palpation, non-tender and non- distended Extremity normal to inspection General Extremety ED: Negative for edema or tenderness General Extremity: Negative for edema Neuro oriented x3, CN's II-XII intact bilaterally and no sensory deficits noted Sensorium / Orientation: awake and alert Motor Exam: strength 5/5 throughout Psych mental status grossly normal Heart Score History: Slightly/Non-Suspicious ECG: Normal Age: </= 45 years Risk Factors: 1 or 2 Risk Factors Score: 1 MDM MDM MDM Narrative Medical decision making narrative: EKG was obtained. On my interpretation, it showed a sinus tachycardia with a rate of 105. WI interval, QRS interval, and QTc intervals were all normal. [place] was normal. There are no acute ST or T wave changes. CBC shows a slight leukocytosis of 11.1. Basic metabolic profile was normal. PT with INR and PTT were normal. High-sensitivity troponin was normal. CTA of the chest was obtained. There is no evidence of pulmonary embolism or arterial dissection. This was interpreted by the radiologist and reviewed by myself. Patient was given aspirin here. Patient was feeling somewhat better on reevaluation. Patient was advised of her findings. Patient has a HEART score of 1. Patient was advised that this is low risk for acute cardiac event. Patient was instructed to follow-up with her primary care physician in 5 to 7 days. Patient understood and was agreeable with the plan. All questions were answered. Lab Data Attestation: I reviewed the patient's lab results. Labs: Laboratory Results - last 24 hr 11/23/20 11/23/20 11/23/20 22:10 22:10 22:10 WBC 11.1 H RBC 4.46 Hgb 12.6 Hct 38.6 MCV 86.5 MCH 28.3 MCHC 32.6 RDW Std Deviation 44.1 H RDW Coeff of Steffi 13.9 Plt Count 384 MPV 8.4 Immature Gran % (Auto) 0.900 Neut % (Auto) 71.8 H Lymph % (Auto) 20.3 [place] % (Auto) 5.0 Eos % (Auto) 1.1 Baso % (Auto) 0.9 Absolute Neuts (auto) 7.9 H Absolute Lymphs (auto) 2.25 Nucleated RBC % 0 PT 14.1 INR 1.2 APTT 36.6 H Sodium 138 Potassium 3.6 Chloride 102 Carbon Dioxide 28.0 Anion Gap 8 BUN 16 Creatinine 0.94 Estim Creat Clear Calc 66.70 Est GFR (MDRD) Af Amer 88 Est GFR (MDRD) Non-Af 72 BUN/Creatinine Ratio 17.0 Glucose 191 H Calcium 9.0 Troponin I High Sens < 3.0 L Radiography Diagnostic Testing: Radiology Impression Chest CTA 11/23/20 21:58 IMPRESSION: 1. Normal CTA chest examination, without a demonstrated pulmonary embolism or arterial dissection. 2. Hepatomegaly with fatty infiltration. Electronically Signed: Esau Cunningham DO at 23:27 EDT Tel [phone], Service support , EKG Initial EKG: Attestation: I personally reviewed and interpreted this EKG as follows: Interpretation: No Acute Injury Pattern and Sinus Tachycardia (105) Discharge Plan Triage Chief Complaint: Chest Pain ED Provider: Elder Amos Dx/Rx/DC Orders Clinical Impression: Chest pain of uncertain etiology, Generalized weakness Instructions: ED Chest Pain, Uncertain Cause, ED Weakness (Uncertain Cause) Prescriptions: No Action metformin 500 mg tablet 500 mg PO DAILY RF: 0 ibuprofen [IBU] 800 mg Tablet 800 mg PO BID PRN (Reason: Pain) RF: 0 buspirone 15 mg tablet 15 mg PO DAILY RF: 0 escitalopram oxalate 20 mg tablet 20 mg PO DAILY RF: 0 Bystolic 5 mg Tablet 5 mg PO DAILY RF: 0 cholecalciferol (vitamin D3) [Vitamin D3] 125 mcg (5,000 unit) Tablet 125 mcg PO DAILY RF: 0 cetirizine 10 mg Capsule 10 mg PO DAILY RF: 0 Primary Care Provider: Odalys Raymond Referrals: Odalys Raymond DO [Primary Care Provider] - 5-7 Days Disposition Disposition: Home, Self Care What to do if you have Problems For any increased pain, shortness of breath, bleeding, nausea or vomiting, chest pain, or any unexpected problems, contact your Primary Care Provider. Call [facility] ([phone]) or report to the closest Emergency Room. Call 911 if necessary. 11/24/20 1836 <Electronically signed by Elder Amos DO> Cosigner Signature (if applicable): CC: Dr. Odalys Raymond DO Signed Odalys Raymond DO Work Phone: Start: 11-23-2020 End: 11-28-2020 12 Lead EKG Comments: See Note; NOTES: [facility] Cardiovascular Services [address] [place] [address] 12 Lead EKG 11/23/202136 MR#: [id number] Acct: [id number] Name: ALMA ULLOA Rep #: [id number] : 1985 35 From: Missael Morse MD Attending Dr: Status: DEP ER Ordering Dr: Elder Amos DO Date: 11/23/20 Location: ED Sex: F C Admitted: Test Reason : CP Blood Pressure : / mmHG Vent. Rate : 105 BPM Atrial Rate : 105 BPM P-R Int : 160 ms QRS Dur : 088 ms QT Int : 324 ms P-R-T Axes : 046 064 024 degrees QTc Int : 428 ms Sinus tachycardia Otherwise normal ECG Confirmed by MAGO SINCLAIR, MISSAEL ([id number]), advertising editor LIA BOOKER ([id number]) on 11/28/2020 1:37:14 PM Referred By: TL/ES Confirmed By:MISSAEL MORSE MD 11/28/20 1337 Date Missael Morse MD CC: Dr. Elder Amos DO; Dr. Odalys Raymond DO Signed Odalys Raymond DO Work Phone: Start: 11-23-2020 End: 11-23-2020 CTA Chest W/WO Contrast Comments: See Note; NOTES: [facility] Imaging Services [address] [place] [address] CTA Chest W/WO Contrast MR#: [id number] Acct: [id number] Name: ALMA ULLOA Rep #: [id number] : 1985 F 35 From: Easu Cunningham DO PCP: Dr. Odalys Raymond DO Status: REG ER Study: CTA Chest W/WO Contrast Date of Exam: 11/23/20 Exam# [id number] Ordering Dr: Elder Amos DO STUDY: CTA CHEST REASON FOR EXAM: Female, 35 years old. Chest pain. Shortness of breath. Tachycardia. RADIATION DOSAGE (If Supplied By Facility): CTDIvol = ( 12.67 ) mGy, DLP = ( 517.19 ) mGycm TECHNIQUE: The examination was performed with the intravenous administration of IV 100mL Isovue-370. Post-processing of the angiographic images was performed, with multiplanar reformation and 3D reconstruction. Individualized dose optimization techniques were used for this CT. COMPARISON: None. FINDINGS: Normal enhancement of the main pulmonary artery and right and left pulmonary arteries. Normal enhancement of the bilateral peripheral pulmonary arteries. There is no demonstrated pulmonary embolism. Normal thoracic aorta and visualized great vessels. There is no demonstrated aortic dissection. Normal heart and pericardium. Normal mediastinum. Normal hilar regions. Normal visualized trachea and bronchi. The lungs are well expanded. Normal pulmonary parenchyma. Normal pleura. Normal chest wall structures. Normal osseous structures. The liver is enlarged and fatty infiltrated. The upper abdomen is otherwise unremarkable. CT/CTA Chest W/WO Contrast IMPRESSION: 1. Normal CTA chest examination, without a demonstrated pulmonary embolism or arterial dissection. 2. Hepatomegaly with fatty infiltration. Electronically Signed: Esau Cunningham DO at 23:27 EDT Tel [phone], Service support , CC: Dr. Elder Amos DO; Dr. Odalys Raymond DO Court Operations Clerk: Signed Odalys Raymond DO Work Phone: Start: 12-01-2016 End: 12-01-2016 PT D/C Summary (1) Comments: See Note; NOTES: [facility] [address] [place] [address] Fax REHABILITATION SERVICES DISCHARGE SUMMARY MR#: [id number] Acct: [id number] Name: ALMA ULLOA Rep #: [id number] : 1985 31 From: Shashank Jara PT, Cert. T, OCS Referring Dr.: Odalys Raymond DO Status: REG RCR Insurance: [facility] - PT D/C Summary It has been my pleasure to treat ALMA ULLOA under orders from Odalys Raymond, for the diagnosis of LBP w/ radiculopathy for a total of 2 visit(s). Discharge Date: Please see the following information for a summary of their discharge status. - Subjective Subjective: Worked 12 hours for 2 days. - Pain Right Back Pain Intensity (Out of 10): 3 - Objective Objective/Function: DESTINY TX WELL ..NO PAIN WITH EX'S. 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 will decrease pain by 50% for increased tolerance to work. Goal 3:: Pt. will increase lumbar ROM in extension and side bending to both sides for improved ability to complete ADLs and work related tasks. Goal 4:: Pt. will be able to maintain proper standing posture 75% of the time from improved tolerance to work demands. Goal 5:: Patient return to function of recovery with less pain. Goal 6:: Patient be d/c to prophalaxis - Plan Plan: CONT - D/C Information If there are questions or concerns regarding this patient's physical therapy, please feel free to call me at [phone]. Thank you for the referral of this patient. Sincerely, Shashank Jara PT, <Electronically signed by Shashank Jara PT, Cert. TAYLA, OCS> 12/01/16 3064 CC: Odalys Raymond DO JLA Signed Odalys Raymond Start: 11-18-2016 End: 11-18-2016 Inital Evaluation (1) - PT Comments: See Note; NOTES: [facility] [address] [place] [address] Fax REHABILITATION SERVICES INITIAL EVALUATION MR#: [id number] Acct: [id number] Name: ALMA ULLOA Rep #: [id number] : 1985 31 From: Shashakn Jara PT, Cert. MDT, OCS Referring Dr.: Odalys Raymond DO Status: REG RCR Insurance: [facility] Patient's Visit Information ALMA ULLOA is a 31 year old F referred to Physical Therapy by Odalys Raymond with a diagnosis of LBP w/ radiculopathy. Date of Evaluation: 11/17/16 Physical Therapist: Shashank Jara PT, - Visit Plan Frequency: 1-2x /Week Duration: 4 Weeks Plan: Begin progression of DLS, create exercise plan that can be completed by pt. on her own at the gym using the equipment, will extension exercises, postural training, body mechanics - Subjective Subjective: Patient is a 31 y/o female who presents with low back pain. Patient has been experiencing back pain for the last 2-3 years. Her back pain was at his worst 2 weeks ago, where she could not find any relief. She has been going to the chiropractor for the last two months. Chiro seems to be helping somewhat. Had injections in her hip two weeks ago, but has not noticed much relief yet. Pain is mostly in the low back on the right. Symptoms do not radiate down the leg. Denies numbness and tingling but sometimes after her 12 hour shifts she feels tingling in her feet. Worse- standing, lying down sometimes hurts, bending forward Better- medication was helping, sitting with pillows to prop her up. Sleep- some nights are better than others, usually wakes up some during the night to change position. Coughing/ Sneezing- negative,. Patient goals: less pain on her days off of work, cannot do leisure activities as she would like. 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 Social: boyfriend - Pain Right Back Pain Intensity (Out of 10): 4 Pain Intensity Range: 10 Comment: at worst it is an 8 - Objective POSTURE: forward head, rounded shoulders, flexed forward, left shoulder higher than right. PALPATION/OBSERVATION: No tenderness in low back, slight hump in the thoracic spine on the right side with flexion, Leg length- R leg slightly shorter than left by less than 1 cm. NEURO : Reflexes: B patellar- 2/3, B achilles- 2/3. Myotomes B intact LE. ROM: lumbar- flexion- no loss, slight pain, Extension- moderate loss, no pain, Side bending R- moderate loss, painful Side bending L- moderate loss, painful. MMT: Hip flexion- B- 4/5 Knee flexion- B-4+/5, knee extension- B-4-/5 DF- B-4+/5. FLEXIBILITY: HS- B- moderate tightness - Special Tests L/S Slump test left side: Negative L/S Slump test right side: Negative L/S Left Straight Leg Raise: Negative L/S Right Straight Leg Raise: Negative Lumbar Standing: Flexion - Mechanical Response: No effect Lumbar Standing: Flexion - Symptoms During Testing: Increases Lumbar Standing: Flexion - Symptoms After Testing: No better Lumbar Standing: Extension - Mechanical Response: No effect Lumbar Standing: Extension - Symptoms During Testing: Decreases Lumbar Standing: Extension - Symptoms After Testing: No better Lumbar Lying: Flexion - Mechanical Response: No effect Lumbar Lying: Flexion - Symptoms During Testing: Increases Lumbar Lying: Flexion - Symptoms After Testing: No worse Lumbar Lying: Extension - Mechanical Response: No effect Lumbar Lying: Extension - Symptoms During Testing: Decreases Lumbar Lying: Extension - Symptoms After Testing: No better - Goals Goal 1:: I with HEP Goal Time Frame: 2-4 Weeks Goal 2:: Pt. will decrease pain by 50% for increased tolerance to work. Goal Time Frame: 2-4 Weeks Goal 3:: Pt. will increase lumbar ROM in extension and side bending to both sides for improved ability to complete ADLs and work related tasks. Goal Time Frame: 2-4 Weeks Goal 4:: Pt. will be able to maintain proper standing posture 75% of the time from improved tolerance to work demands. Goal Time Frame: 2-4 Weeks Goal 5:: Patient return to function of recovery with less pain. Goal Time Frame: 2-4 Weeks Goal 6:: Patient be d/c to prophalaxis Goal Time Frame: 2-4 Weeks - Rehabilitation Potential Physical Therapy Diagnosis: Pt. presents with R LBP from a possible posterior derangement above knee. Pt. has increased pain with bending over and standing for long periods of time while working. Pt. responded well to repeated extension. Pt. would benefit from skilled therapy to address limitations in core stability, lumbar ROM, posture, and to decrease pain level for increased function and improved QOL. Rehabilitation Potential: Good - Anticipated Interventions Patient/Client Instruction: Educate patient on: Condition, Plan of Care For the Purpose of:: To decrease pain, To increase ROM, To improve muscle performance and motor function, To improve ability to perform ADL's, To improve performance and independence with ADL 's, To increase flexibility/ROM, To improve endurance, To improve tolerance to ADL's Therapeutic Exercise to Include: Strength training, Endurance training, Body mechanics, Postural training, Flexibilty training, Dynamic Lumbar Stabilization, Will Exercises For the Purpose of:: To decrease pain, To increase ROM, To improve muscle performance and motor function, To improve ability to perform ADL's, To increase tolerance to activity/condition/ position, To increase flexibility/ROM, To improve endurance, To prevent re-injury, To improve tolerance to ADL's IF ES: Yes Cryotherapy (ice pack, ice massage): Yes Thermo therapy (hot pack): Yes Ultrasound (thermal/non thermal): Yes Comment: prn For the Purpose of:: To decrease pain, To increase ROM, To improve nutrient delivery to tissue, To increase oxygenation perfusion, To improve health of tissue, To decrease soft tissue restriction Thank you for the opportunity to evaluate your patient. For Medicare and Medicare HMO plans, please review the plan of care and approve it. It will need to be FAXED BACK to us at [phone] for Medicare purposes. Please let me know if there are questions or concerns regarding this plan of care. Physician Signature: Date: <Electronically signed by Shashank Jara PT, Cert. MDT, OCS> 11/18/16 0429 CC: Odalys Raymond DO JLA Signed For Medicare only, by signing this I certify the plan of care. __ Physicians Signature Date Odalys Raymond Start: 12-08-2014 End: 12-10-2014 Thyroid Comments: See Note; NOTES: [facility] [address] [place] [address] Ultrasound Report MR#: [id number] Acct: [id number] Name: ALMA ULLOA Rep #: [id number] : 1985 F 29 From: Jose Alvarenga DO PCP: Jovanni Pfeiffer MD Status: REG CLI Study: Thyroid Date of Exam: 12/08/14 Exam# [id number] Ordering Dr: Odalys Raymond DO STUDY: THYROID ULTRASOUND REASON FOR EXAM: Female, 29 years old. Thyromegaly TECHNIQUE: Ultrasound evaluation of the thyroid was performed with real-time and static winslow-scale imaging. COMPARISON: None. FINDINGS: RIGHT LOBE: The right lobe of the thyroid gland measures 6.0 x 2.0 x 1.5 cm. There is a homogeneous echotexture. There are no demonstrated solid, cystic or complex lesions. LEFT LOBE: The left lobe of the thyroid gland measures 5.1 x 2.3 x 1.2 cm. There is a homogeneous echotexture. There are no demonstrated solid, cystic or complex lesions. ISTHMUS: The isthmus measures 3 mm . The regional lymph nodes are normal. IMPRESSION: Mildly prominent thyroid. Electronically Signed: Jose Alvarenga DO at 9:30 EDT Tel [phone], Service support [phone], CC: Jovanni Pfeiffer MD; Odalys Raymond DO Court Operations Clerk: Signed Odalys Raymond Work Phone: Start: 11-22-2014 End: 11-22-2014 No Known Past Surgical History Neema Messenger History of cholecystectomy S/P cholecystectomy Jackelin Gomes MANAGER [employer]TS History of cholecystectomy S/P cholecystectomy Muna Slarb ASSISTANT FILM EDITOR History of cholecystectomy S/P cholecystectomy Adalid Valhalla ASSISTANT FILM EDITOR Operation on gallbladder Azael min Gravius [employer]NAGER [employer]ORTS Comment on above: removal with dr jossy Zaidi liver and gallbl adder biopsies obtained awaiting result. surgery done 07/01/21 . Operation on gallbladder Ang cherry Slarb ASSISTANT FILM EDITOR Comment on above: removal with dr jossy Zaidi liver and gallbl adder biopsies obtained awaiting result. surgery done 07/01/21 . Operation on gallbladder Dak flotation tender Valhalla ASSISTANT FILM EDITOR Comment on above: removal with dr jossy Zaidi liver and gallbl adder biopsies obtained awaiting result. surgery done 07/01/21 . Plan of Treatment Date Care Activity Detail Author Start: 2061 Respiratory Syncytial Virus Immunization: Risk, 60-74 Risk, or 75+ (1 - 1-dose 75+ series) Respiratory Syncytial Virus Immunization: Risk, 60-74 Risk, or 75+ (1 - 1-dose 75+ series) [facility] Start: 01-18-2029 Screening for malignant neoplasm of cervix [facility] Start: 01-10-2028 Tetanus vaccination Tetanus: Every 10yrs [facility] Start: 01-18-2027 Screening for malignant neoplasm of cervix Pap Smear [facility] Start: 09-16-2025 eGFR Diabetes eGFR Diabetes [facility] Start: 09-16-2025 Urine screening for protein eGFR Diabetes [facility] Start: 01-18-2025 History and physical examination, annual for health maintenance Wellness Visit [facility] Start: 12-14-2024 Urine screening for protein [facility] Start: 08-25-2024 Hemoglobin A1c measurement A1C [facility] Start: 03-31-2024 End: 03-31-2024 Patient encounter procedure 03/31/2024 3:30 PM EST Appointment [facility] [address] [place] [id number] [facility] Start: 01-24-2024 Influenza vaccination Influenza Vaccine (#1) [facility] Start: 12-11-2023 Hemoglobin A1c measurement A1C [facility] Start: 04-17-2023 Hemoglobin A1c measurement A1C [facility] Start: 10-15-2022 Procedure Education Eprescribed prescriptions (G8553) [facility] Work Phone: Start: 10-15-2022 Provider Instructions for Treatment [facility] Work Phone: Start: 01-29-2022 25 hydroxy includes fractions if performed CALCIFEDIOL (95038) [facility]; [facility] Work Phone: Start: 01-29-2022 Blood count complete auto&auto difrntl wbc CBC, PLATELETS & AUT DIFF (93888) [facility]; [facility] Work Phone: Start: 01-29-2022 Cyanocobalamin vitamin b-12 VITAMIN B-12 (CYANOCOBALAMIN) (79467) [facility]; [facility] Work Phone: Start: 01-29-2022 Procedure Education Eprescribed prescriptions (G8553) [facility]; [facility] Work Phone: Start: 01-29-2022 Provider Instructions for Treatment Reviewed Lab [facility]; [facility] Work Phone: Start: 01-23-2022 Procedure Education Eprescribed prescriptions (G8553) [facility]; [facility] Work Phone: Start: 01-23-2022 Provider Instructions for Treatment [facility]; [facility] Work Phone: Start: 01-23-2022 Gluc bld gluc mntr dev cleared fda spec home use Blood Glucose , Office (10134) [facility]; [facility] Work Phone: Start: 07-01-2021 Anes intraperitoneal upper abdomen w/laps nos ANESTH SURG UPPER ABDOMEN [facility] Work Phone: Start: 07-01-2021 Bx lvr ndl done purpose tm oth major px NEEDLE BIOPSY LIVER ADD-ON [facility] Work Phone: Start: 07-01-2021 Laps surg cholecystectomy w/cholangiography LAPARO CHOLECYSTECTOMY/GRAPH [facility] Work Phone: Start: 05-22-2021 Cyanocobalamin vitamin b-12 VITAMIN B-12 (CYANOCOBALAMIN) (62735) [facility]; [facility] Work Phone: Start: 05-20-2021 Procedure Education Eprescribed prescriptions (G8553) [facility]; [facility] Work Phone: Start: 05-20-2021 Provider Instructions for Treatment [facility] Work Phone: Start: 02-08-2021 Procedure Education Eprescribed prescriptions (G8553) [facility]; [facility] Work Phone: Start: 02-08-2021 Provider Instructions for Treatment [facility]; [facility] Work Phone: Start: 02-08-2021 Urnls dip stick/tablet reagent auto microscopy URINALYSIS, W/ MICRO (61701) [facility]; [facility] Work Phone: Start: 11-30-2020 Procedure Education Eprescribed prescriptions (G8553) [facility]; [facility] Work Phone: Start: 11-30-2020 Provider Instructions for Treatment [facility]; [facility] Work Phone: Start: 11-30-2020 Culture bct isol&prsmptv id isolate ea urine URINE GREG CULTURE-IDENTIFICATN (72087) [facility]; [facility] Work Phone: Start: 02-20-2020 Procedure Education Eprescribed prescriptions (G8553) [facility] Work Phone: Start: 02-20-2020 Provider Instructions for Treatment [facility] Work Phone: Start: 02-20-2020 Lipid panel LIPID PANEL (84093) [facility] Work Phone: Start: 02-20-2020 HbA1c (Bld) [Mass fraction] HgA1C , Office (25571) [facility] Work Phone: Start: 02-20-2020 Urine albumin quantitative MICROALBUMIN: CREATININE RATIO (26225) AND (93508) [facility] Work Phone: Start: 02-20-2020 Blood count complete automated CBC (AUTO) (56887) [facility] Work Phone: Start: 02-20-2020 Comprehensive metabolic panel METABOLIC PANEL, COMPREHENSIVE (86586) [facility] Work Phone: Start: 02-20-2020 TSH Qn TSH (99299) [facility] Work Phone: Start: 02-20-2020 25 hydroxy includes fractions if performed CALCIFIDIOL (22030) VIT D 25 [facility] Work Phone: Start: 02-20-2020 Cobalamin (Vitamin B12) [Mass/Vol] VITAMIN B-12 (CYANOCOBALAMIN) (47015) [facility] Work Phone: Start: 10-14-2018 Procedure Education Eprescribed prescriptions (G8553) [facility] Work Phone: Start: 10-14-2018 Provider Instructions for Treatment Continue Current Prescription(s) [facility] Work Phone: Start: 01-20-2018 Procedure Education Eprescribed prescriptions (G8553) [facility] Work Phone: Start: 2016 Screening for malignant neoplasm of cervix [facility] Start: 10-05-2015 Provider Instructions for Treatment [facility] Work Phone: Start: 07-25-2015 Provider Instructions for Treatment [facility] Work Phone: Start: 12-27-2014 Procedure Education Eprescribed prescriptions (G8553) [facility] Work Phone: Start: 12-27-2014 Provider Instructions for Treatment [facility] Work Phone: Start: 11-22-2014 Provider Instructions for Treatment Reviewed Lab [facility] Work Phone: Start: 11-22-2014 25 hydroxy includes fractions if performed CALCIFIDIOL (34425) VIT D 25 [facility] Work Phone: Start: 11-22-2014 Assay of thyroid stimulating hormone tsh TSH (22389) [facility]; [facility] Work Phone: Start: 11-22-2014 Thyrotropin Qn TSH (49820) [facility] Work Phone: Start: 11-22-2014 Assay of free thyroxine T4, FREE (THYROXINE) (48844) [facility]; [facility] Work Phone: Start: 11-22-2014 T4 free mass conc T4, FREE (THYROXINE) (72301) [facility] Work Phone: Start: 11-22-2014 Assay of triiodothyronine t3 free T3, FREE (TRIDOTHYRONINE) (89732) [facility]; [facility] Work Phone: Start: 11-22-2014 T3 free mass conc T3, FREE (TRIDOTHYRONINE) (63871) [facility] Work Phone: Start: 11-22-2014 Hemoglobin A1c/Hemoglobin.total mass fraction (Bld) HgA1C , Office (73682) [facility] Work Phone: Start: 11-22-2014 Hemoglobin glycosylated a1c HgA1C , Office (74535) [facility]; [facility] Work Phone: Start: 2007 Screening for malignant neoplasm of cervix Pap Smear [facility] Start: 2005 Pneumococcal Vaccine: Ped or At-Risk (1 of 2 - PCV) Pneumococcal Vaccine: Ped or At-Risk (1 of 2 - PCV) [facility] Start: 2004 Hepatitis C screening Hepatitis C Screening [facility] Start: 2001 HIV screening HIV Screening [facility] Start: 1998 Depression screening using PHQ-9 (Patient Health Questionnaire 9) score [facility] Start: 1996 Diabetic foot examination Diabetic Foot Exam [facility] Start: 1996 Glaucoma screening Diabetic Eye Exam [facility] Start: 1996 Urine screening for protein Urine Microalbumin [facility] Start: 1989 History and physical examination, annual for health maintenance Wellness Visit [facility] Bacteria identified in Throat by Culture [facility] End: 01-13-2025 Chlamydia trachomatis rRNA assay Chlamydia/GC/Trichomon as Amplified RNA Microbiology Routine Well woman exam with routine gynecological exam 1 Occurrences starting 01/19/2024 until 01/13/2025 [facility] Comment on above: 1 Occurrences starting 01/19/2024 until 01/13/2025 Chlamydia trachomati s rRNA assay Chlamydia/GC/Trichomon as Amplified RNA Microbiology Routine Well woman exam with routine gynecological exam 01/19/2024 3:42 PM EDT [facility] End: 09-05-2025 Choriogonadotropin [Units/volume] in Serum or Plasma hCG, Blood, Quantitative Lab Routine , unspecified gestational age 1 Occurrences starting 09/05/2024 until 09/05/2025 [facility] Work Phone: Comment on above: 1 Occurrences starting 09/05/2024 until 09/05/2025 End: 10-03-2025 Choriogonadotropin [Units/volume] in Serum or Plasma hCG, Blood, Quantitative Lab Routine Secondary oligomenorrhea Abnormal uterine bleeding 2 Occurrences starting 10/03/2024 until 10/03/2025 [facility] Comment on above: 2 Occurrences starting 10/03/2024 until 10/03/2025 End: 05-08-2025 MG Breast - bilateral Screening Mammography Screening [place] Bilateral Imaging Routine Screening mammogram for breast cancer 1 Occurrences starting 03/08/2024 until 05/08/2025 [facility] Work Phone: Comment on above: 1 Occurrences starting 03/08/2024 until 05/08/2025 Microscopic examinat ion of vaginal Papanicolaou smear Thinprep Pap Smear Pathology and Cytology Routine Well woman exam with routine gynecological exam Ordered: 01/19/2024 [facility] Work Phone: Comment on above: Ordered: 01/19/2024 Neisseria gonorrhoea e nucleic acid detection Chlamydia/Gonorrhoeae Amplified RNA Microbiology Routine Well woman exam with routine gynecological exam 01/19/2024 3:42 PM EDT [facility] Patient referral [facility] Work Phone: End: 10-03-2025 Progesterone [Mass/volume] in Serum or Plasma Progesterone Lab Routine Secondary oligomenorrhea Abnormal uterine bleeding 2 Occurrences starting 10/03/2024 until 10/03/2025 [facility] Work Phone: Comment on above: 2 Occurrences starting 10/03/2024 until 10/03/2025 SARS-CoV-2 (COVID-19 ) Ag [Presence] in Upper respiratory specimen by Rapid immunoassa [facility] Trichomonas vaginali s Amplified RNA Trichomonas vaginalis Amplified RNA Microbiology Routine Well woman exam with routine gynecological exam 01/19/2024 3:42 PM EDT [facility] End: 09-05-2025 US transabdominal and transvaginal for in first trimester US Obstetric TransvaginaL First Trimester Imaging Routine , unspecified gestational age 1 Occurrences starting 09/05/2024 until 09/05/2025 [facility] Comment on above: 1 Occurrences starting 09/05/2024 until 09/05/2025 [facility] Work Phone: [facility] Work Phone: [facility] Internal Medicine Work Phone: [facility] Work Phone: [facility] Work Phone: [facility] Work Phone: [facility] Work Phone: [facility] Work Phone: [facility]; [facility] Work Phone[facility]; [facility] Work Phone: [facility]; [facility] Work Phone: Immunizations Immunization Date Immunization Notes Care Provider [facility] 02-26-2023 Influenza, injectabl e, Madin Princess Canine Kidney, preservative free, quadrivalent Claudy Cortez MD Work Phone: [facility] 02-26-2023 influenza virus vaccine, unspecified formulation Claudy Cotrez MD Work Phone: [facility] 02-19-2022 Influenza, injectabl e, Madin Viola Canine Kidney, preservative free, quadrivalent Claudy Cortez MD Work Phone: [facility] 01-20-2021 influenza, seasonal, injectable Claudy Cortez MD Work Phone: [facility] 01-07-2021 Covid (Pfizer) Dr. Odalys Raymond Work Phone: [facility] Work Phone: 01-09-2018 tetanus toxoid, redu kendall diphtheria toxoid, and acellular pertussis vaccine, adsorbed Claudy Cortez MD Work Phone: [facility] 01-05-2018 influenza, injectabl e, quadrivalent, preservative free Claudy Cortez MD Work Phone: [facility] 01-12-2017 influenza, injectabl e, quadrivalent, preservative free Claudy Cotrez MD Work Phone: [facility] 01-17-2016 influenza, injectabl e, quadrivalent, preservative free Claudy Cortez MD Work Phone: [facility] 12-19-2014 influenza, seasonal, injectable, preservative free Claudy Cortez MD Work Phone: [facility] 12-19-2014 tetanus toxoid, redu kendall diphtheria toxoid, and acellular pertussis vaccine, adsorbed Claudy Cortez MD Work Phone: [facility] 06-02-2009 novel [id number], preservative-free, injectable Claudy Cortez MD Work Phone: [facility] Payers Date Payer Category Payer Unknown [id number] 2015 Unknown [id number] 2015 Private Health Insurance [id number] 2014 Unknown [id number] 1986 Unknown [id number] 1986 Unknown [id number] 1986 Unknown [id number] 1986 Unknown [id number] 1986 Unknown [id number] 1986 Unknown [id number] 1986 Unknown [id number] 1986 Unknown [id number] 1986 Unknown [id number] Self-pay SELF PAY INSURANCE [id number] Unknown Unknown [id number] Unknown [id number] Social History Date Type Detail Facility Alcohol Use: Never smoker [facility] Work Phone: Start: 08-11-2023 End: 10-09-2024 Caffeine Use [facility] Work Phone: Comment on above: qd Exercise History: Exercises occasionally. [facility] Work Phone: Living Situation: Lives with dom estic partner. [facility] Work Phone: Pets/Animals: Cat. [facility] Work Phone: Tobacco use: Never smoker. [facility] Work Phone: Alcohol Use: Alcohol Use: [facility]; [facility] Work Phone: Exercise History: Exercise History: Compr e[facility]; [facility] Work Phone: Living Situation: Living Situation: [facility]; [facility] Work Phone: Pets/Animals: Pets/Animals: [facility]; [facility] Work Phone: Tobacco use: Tobacco use: [facility]; [facility] Work Phone: Start: 08-14-2021 Tobacco smoking status NHIS Unknown if ever smoked [facility] Work Phone: Start: 1985 Sex Assigned At Female [facility] Start: 08-14-2021 End: 08-11-2023 Tobacco smoking status NHIS Never smoked tobacco [facility] Start: 08-11-2023 Tobacco use and exposure Smokeless tobacco non-user [facility] Start: 08-11-2023 End: 09-05-2024 Alcohol intake Ex-drinker (finding) [facility] Start: 08-11-2023 End: 10-09-2024 Tobacco use panel [facility] Start: 1985 Sex Assigned At Not on file [facility] Start: 01-18-2024 Gender identity Identifies as female gender (finding) [facility] NEGATED: Highlighted rowStart: NINF History of tobacco use Passive smoker [facility] Medical Equipment Procedure Code Equipment Code Equipment Origin al Text Equipment Identifier Dates Total cholecystectomy with exploration of common bile duct Ligation clip, synthetic polymer, non-bioabsorbable [id number] [facility] Start: 07-01-2021 syringe with nee dle 1 mL 25 gauge x 5/8 miscellaneous syringe, empty disposable 1 (one) per Use as directed with b12 injection for 0 days Quantity: 90 {Each} Refills: 0 Ordered: 17-Oct-2022 Elver Lopez CMA Start : 17-Oct-2022 Active Start: 10-17-2022 syringe with nee dle 1 mL 25 gauge x 5/8 miscellaneous syringe, empty disposable 1 (one) per Use as directed with b12 injection for 0 days Quantity: 90 {Each} Refills: 0 Ordered: 17-Oct-2022 Elver Lopez CMA Start : 17-Oct-2022 Active Start: 10-17-2022 syringe with nee dle 1 mL 25 gauge x 5/8 miscellaneous syringe, empty disposable 1 (one) per Use as directed with b12 injection for 0 days Quantity: 90 {Each} Refills: 0 Ordered: 17-Oct-2022 Elver Lopez CMA Start : 17-Oct-2022 Active Start: 10-17-2022 syringe with nee dle 1 mL 25 gauge x 5/8 miscellaneous syringe, empty disposable 1 (one) per Use as directed with b12 injection for 0 days Quantity: 90 {Each} Refills: 0 Ordered: 17-Oct-2022 Elver Lopez CMA Start : 17-Oct-2022 Active Start: 10-17-2022 Mental Status Date Assessment Result Facility 07-01-2021 Cognitive function Level Of Cons ciousness Awake;Follows Commands [facility] Work Phone: 07-01-2021 Cognitive function Voice/Name [facility] Work Phone: Clinical Notes 05-23-2021 to 10-03-2024 Annie Loaiza MD - 10/03/2024 1:11 PM EDTMendez Francisco RN - 09/05/2024 1:00 PM Claudy Gurroal MD - 01/19/2024 3:21 PM EDT Note Date & Type Note Facility 10-03-2024 Note Subjective Alma Ulloa is a 39 y.o. female -0-1-0 that presents today for ER follow-up and miscarriage follow-up. Patient was seen in the ER for heavy vaginal bleeding due to spontaneous miscarriage on September 16, 2024. Patient was treated in the ER with vaginal exam, IM Methergine, and pelvic exam with removal of retained products of conception that were seen at the cervical os. Products of conception were sent to pathology. Patient states she is no longer having any vaginal bleeding. Patient states the first week after the miscarriage she did bleed similar to a menstrual cycle. Patient states she is still having some abdominal cramping, decreased energy, and fatigue. Patient was found to be anemic in the ER and has been started on iron supplementation. Patient would like to try and conceive again as soon as possible due to advanced maternal age.Reviewed patient's current medications. Discussed with patient that current medications are safe in . Advised patient that fertility is increased for the first 6 months after her miscarriage. Advised patient that it would be fine for her to start trying for as soon as she physically and mentally feels up to it. Discussed with patient to time intercourse to improve odds of conceiving. Advised patient of the first day of vaginal bleeding is considered day number one of her menstrual cycle. Discussed with patient that she should time intercourse starting on day 9 of her menstrual cycle and have intercourse every other day until day 21 or 22 of her menstrual cycle. Advised patient that having a large window of intercourse improves the odds of conceiving. Advised patient that she should be taking an 81 mg aspirin along with a vitamin due to her history of pre-existing diabetes. Discussed with patient that a low-dose aspirin also will help decrease the risk of miscarriage in future pregnancies as well as the risk of hypertension in future pregnancies. Advised patient when she does have a positive home test to contact the office to have a quantitative hCG drawn as well as a progesterone level. Advised patient that once we get her blood work back, after conceiving we will then start her on Prometrium 200 mg p.o. daily for the first trimester. Advised patient that we will repeat her quantitative hCG and progesterone level 48 hours after the initial blood draw to ensure that the hormone level is rising appropriately. Discussed with patient that progesterone lab orders and quantitative hCG lab orders will be ordered today and prescription for Prometrium will be called in today. Advised patient not to start the Prometrium until she has a positive test and gets her first blood draw. Questions answered about conceiving and fertility. Questions answered about methods to decrease miscarriage in the future . Patient to follow-up after positive test. Total time spent with patient and her significant other today discussing recent miscarriage, discussing how to time intercourse to improve odds of conceiving, discussing future fertility, discussing blood work when she does have another positive test, discussing Prometrium use and aspirin use in future , time spent completing patient's chart is 35 minutes. Gynecologic History Patient's last menstrual period was 12/27/2023 (exact date). Contraception: none Last Pap: 12/2023. Results were: normal Last mammogram: N/A. Results were: N/A Obstetric History OB History Para Term AB Living 1 0 0 0 1 0 SAB IAB Ectopic Multiple Live Births 1 0 0 0 0 # Outcome Date GA Lbr Mikey/2nd Weight Sex Type Anes PTL Lv 1 SAB 09/16/24 The following portions of the patient's history were reviewed and updated as appropriate: allergies, current medications, past family history, past medical history, past social history, past surgical history, and problem list. Review of Systems Review of Systems Constitutional: Positive for fatigue. Negative for chills, fever and unexpected weight change. Respiratory: Negative for cough and shortness of breath. Cardiovascular: Negative for chest pain. Gastrointestinal: Positive for abdominal pain (lower abdominal cramping). Negative for constipation, diarrhea, nausea and vomiting. Genitourinary: Negative for dyspareunia, menstrual problem, pelvic pain, urgency, vaginal bleeding, vaginal discharge and vaginal pain. Neurological: Negative for dizziness. Objective Vitals: 10/03/24 1219 BP: 113/69 Pulse: 73 Weight: 113.8 kg (250 lb 12.8 oz) Physical Exam Constitutional: General: She is not in acute distress. Appearance: Normal appearance. She is obese. She is not ill-appearing. HENT: Head: Normocephalic. Nose: Nose normal. Eyes: Extraocular Movements: Extraocular movements intact. Pulmonary: Effort: Pulmonary effort is normal. Musculoskeletal: Cerv (more content not included)... [facility] 10-03-2024 History of Present illness Narrative Subjective Alma Ulloa is a 39 y.o. female -0-1-0 that presents today for ER follow-up and miscarriage follow-up. Patient was seen in the ER for heavy vaginal bleeding due to spontaneous miscarriage on September 16, 2024. Patient was treated in the ER with vaginal exam, IM Methergine, and pelvic exam with removal of retained products of conception that were seen at the cervical os. Products of conception were sent to pathology. Patient states she is no longer having any vaginal bleeding. Patient states the first week after the miscarriage she did bleed similar to a menstrual cycle. Patient states she is still having some abdominal cramping, decreased energy, and fatigue. Patient was found to be anemic in the ER and has been started on iron supplementation. Patient would like to try and conceive again as soon as possible due to advanced maternal age. Reviewed patient's current medications. Discussed with patient that current medications are safe in . Advised patient that fertility is increased for the first 6 months after her miscarriage. Advised patient that it would be fine for her to start trying for as soon as she physically and mentally feels up to it. Discussed with patient to time intercourse to improve odds of conceiving. Advised patient of the first day of vaginal bleeding is considered day number one of her menstrual cycle. Discussed with patient that she should time intercourse starting on day 9 of her menstrual cycle and have intercourse every other day until day 21 or 22 of her menstrual cycle. Advised patient that having a large window of intercourse improves the odds of conceiving. Advised patient that she should be taking an 81 mg aspirin along with a vitamin due to her history of pre-existing diabetes. Discussed with patient that a low-dose aspirin also will help decrease the risk of miscarriage in future pregnancies as well as the risk of hypertension in future pregnancies. Advised patient when she does have a positive home test to contact the office to have a quantitative hCG drawn as well as a progesterone level. Advised patient that once we get her blood work back, after conceiving we will then start her on Prometrium 200 mg p.o. daily for the first trimester. Advised patient that we will repeat her quantitative hCG and progesterone level 48 hours after the initial blood draw to ensure that the hormone level is rising appropriately. Discussed with patient that progesterone lab orders and quantitative hCG lab orders will be ordered today and prescription for Prometrium will be called in today. Advised patient not to start the Prometrium until she has a positive test and gets her first blood draw. Questions answered about conceiving and fertility. Questions answered about methods to decrease miscarriage in the future . Patient to follow-up after positive test. Total time spent with patient and her significant other today discussing recent miscarriage, discussing how to time intercourse to improve odds of conceiving, discussing future fertility, discussing blood work when she does have another positive test, discussing Prometrium use and aspirin use in future , time spent completing patient's chart is 35 minutes. Gynecologic History Patient's last menstrual period was 12/27/2023 (exact date). Contraception: none Last Pap: 12/2023. Results were: normal Last mammogram: N/A. Results were: N/A Obstetric History OB History Para Term AB Living 1 0 0 0 1 0 SAB IAB Ectopic Multiple Live Births 1 0 0 0 0 # Outcome Date GA Lbr Mikey/2nd Weight Sex Type Anes PTL Lv 1 SAB 09/16/24 The following portions of the patient's history were reviewed and updated as appropriate: allergies, current medications, past family history, past medical history, past social history, past surgical history, and problem list. Review of Systems Review of Systems Constitutional: Positive for fatigue. Negative for chills, fever and unexpected weight change. Respiratory: Negative for cough and shortness of breath. Cardiovascular: Negative for chest pain. Gastrointestinal: Positive for abdominal pain (lower abdominal cramping). Negative for constipation, diarrhea, nausea and vomiting. Genitourinary: Negative for dyspareunia, menstrual problem, pelvic pain, urgency, vaginal bleeding, vaginal discharge and vaginal pain. Neurological: Negative for dizziness. Objective Vitals: 10/03/24 1219 BP: 113/69 Pulse: 73 Weight: 113.8 kg (250 lb 12.8 oz) Physical Exam Constitutional: General: She is not in acute distress. Appearance: Normal appearance. She is obese. She is not ill-appearing. HENT: Head: Normocephalic. Nose: Nose normal. Eyes: Extraocular Movements: Extraocular movements intact. Pulmonary: Effort: Pulmonary effort is normal. Musculoskeletal: Cervical back: Normal range of motion. Neurological: Mental Status: She is alert and oriented to person, place, and time. Psychiatric: Mood and Affect: Mood normal. Assessment: A/P: Patient is a 39-year-old female -0-1-0 that presents today for ER follow-up and miscarriage follow-up as well as preconception counseling Plan: Patient was seen in the ER for heavy vaginal bleeding due to spontaneous miscarriage on September 16, 2024. Patient was treated in the ER with vaginal exam, IM Methergine, and pelvic exam with removal of retained products of conception that were seen at the cervical os. Products of conception were sent to pathology. Patient states she is no longer having any vaginal bleeding. Patient states the first week after the miscarriage she did bleed similar to a menstrual cycle. Patient states she is still having some abdominal cramping, decreased energy, and fatigue. Patient was found to be anemic in the ER and has been started on iron supplementation. Patient would like to try and conceive again as soon as possible due to advanced maternal age. Reviewed patient's current medications. Discussed with patient that current medications are safe in . Advised patient that fertility is increased for the first 6 months after her miscarriage. Advised patient that it would be fine for her to start trying for as soon as she physically and mentally feels up to it. Discussed with patient to time intercourse to improve odds of conceiving. Advised patient of the first day of vaginal bleeding is considered day number one of her menstrual cycle. Discussed with patient that she should time intercourse starting on day 9 of her menstrual cycle and have intercourse every other day until day 21 or 22 of her menstrual cycle. Advised patient that having a large window of intercourse improves the odds of conceiving. Advised patient that she should be taking an 81 mg aspirin along with a vitamin due to her history of pre-existing diabetes. Discussed with patient that a low-dose aspirin also will help decrease the risk of miscarriage in future pregnancies as well as the risk of hypertension in future pregnancies. Advised patient when she does have a positive home test to contact the office to have a quantitative hCG drawn as well as a progesterone level. Advised patient that once we get her blood work back, after conceiving we will then start her on Prometrium 200 mg p.o. daily for the first trimester. Advised patient that we will repeat her quantitative hCG and progesterone level 48 hours after the initial blood draw to ensure that the hormone level is rising appropriately. Discussed with patient that progesterone lab orders and quantitative hCG lab orders will be ordered today and prescription for Prometrium will be called in today. Advised patient not to start the Prometrium until she has a positive test and gets her first blood draw. Questions answered about conceiving and fertility. Questions answered about methods to decrease miscarriage in the future . Patient to follow-up after positive test. Total time spent with patient and her significant other today discussing recent miscarriage, discussing how to time intercourse to improve odds of conceiving, discussing future fertility, discussing blood work when she does have another positive test, discussing Prometrium use and aspirin use in future , time spent completing patient's chart is 35 minutes. documented in this encounter [facility] 09-16-2024 Note Gynecology Consultat ion Assessment/Plan: A/P: Patient is a 39-year-old female G1 now P0010 that should have been roughly 8 weeks who underwent an incomplete miscarriage that has now been completed with removal of products of conception from the cervix by ring forcep in the ER 1. Plan to send patient home with Methergine 0.2 mg orally 3 times a day for 3 days to ensure there is no remaining clot or products of conception within the cervical canal 2. Plan for ibuprofen 800 mg p.o. every 8 hours as needed cramping and pain as well as 5 tablets of [place] as needed for any severe cramping due to the fact that cramping may be worse with the Methergine 3. Minimal bleeding noted after sterile speculum exam and removal of products of conception from the cervical os. The products of conception are sent to pathology. 4. Patient's blood type is Rh+ therefore no need for RhoGAM 5. Discussed follow-up with patient in the office in 1 to 2 weeks to evaluate bleeding and possibly for repeat quantitative hCG. Briefly discussed today future and timing of future . Advised patient we would discuss this further at her follow-up office visit. Briefly discussed doing progesterone supplementation in the first trimester as this can decrease the risk of miscarriage. Briefly also discussed starting patient on a low-dose 81 mg aspirin along with her vitamin when she is trying to conceive in the future due to her history of type 2 diabetes as there is a higher risk of hypertension with advanced maternal age and type 2 diabetes. Advised patient we would discuss these things further in the office. 6. Mild leukocytosis which could be from the miscarriage or stress, plan to give 1 dose of doxycycline 100 mg orally prior to discharge 7. Patient is stable with minimal bleeding and okay for discharge with outpatient follow-up in the next 1 to 2 weeks CC: Chief Complaint Patient presents with Vaginal Bleeding Reason for consultation: First trimester miscarriage HPI: Alma Ulloa is a 39 y.o. female G1, P0 who presents with complaints of severe abdominal pain and heavy vaginal bleeding. Patient initially presented to the ER at 7:45 AM with significant vaginal bleeding and abdominal pain. Patient has a known with a quantitative hCG of 3400 on 09/08/2023. Patient is scheduled next week on 09/21/2023 for initial ultrasound. Patient states this is her first . Patient states that she does have type 2 diabetes and is currently on metformin but had previously been on Ozempic, which she stopped when she started trying for . Patient states that she also has anxiety and depression and is currently on Lexapro and BuSpar. Patient states that she did have irregular menses, but after starting Ozempic and having significant weight loss menstrual cycles regulated. Patient states that she began tracking ovulation and timing intercourse which allowed her to conceive. Patient is very tearful today. Patient states that when she had her nurse intake visit for the she told them she was having abdominal cramping. Patient states that she started having some pink spotting yesterday. Patient states that she woke up in the middle the night with severe cramping and stabbing abdominal pain as well as heavy vaginal bleeding. Patient states she had been passing clots as large as her hand. Patient states that anytime she get up blood would pour out of her. Patient denies any current lightheadedness or dizziness. Report from the ER physician was that patient was having such heavy vaginal bleeding they took her directly to ultrasound before doing her exam. Patient's initial hemoglobin was 12.1 and dropped to 11.8 after 2 hours in the ER. Patient is Rh positive. Patient was given 1 dose of 0.2 mg of IM Methergine to try and manage bleeding waiting for gynecology consult. Patient states that since getting the IM Methergine about 30 minutes ago she has noticed that bleeding has started to slow. Patient states she is still having quite a bit of abdominal cramping. Patient has been given medication for pain. Transvaginal ultrasound done 2 hours ago showed a slightly thickened endometrial lining with what could be a clot or retained products in the cervical canal. The ER physician did not do a vaginal exam, therefore plan to do a vaginal exam today to see if there is any clot or products of conception in the cervical canal that can be removed in the patient's room. Discussed findings of miscarriage with patient today. Briefly discussed what can be done for future pregnancies to reduce the risk of miscarriage such as Prometrium supplementationand/or low-dose aspirin supplementation. Discussed with patient today the possibility of a D&C if she is continuing to have significant bleeding. Patient was given the opportunity and ability to ask any and all questions. Re (more content not included)... [facility] 09-05-2024 History of Present illness Narrative Phone Intake Menstrual Hx: First day of LMP, type of periods prior to (monthly, irregular, etc), recent BC use ; LMP 07/20/24; Periods regular and monthly; Stopped ocp about 4 years ago OB Hx: How many total pregnancies, how many deliveries, , term or vaginal delivery Complications during pregnancies (pre-e, GDM, gHTN, growth issues with baby, etc) Complications during delivery (vacuum or forceps use, PPH, Shoulder dystocia) OB History Para Term AB Living 1 0 0 0 0 0 SAB IAB Ectopic Multiple Live Births 0 0 0 0 0 # Outcome Date GA Lbr Mikey/2nd Weight Sex Type Anes PTL Lv 1 Current Current Meds: Current Medications[1] Medical Hx: Past Medical History: Diagnosis Date Diabetes mellitus (HCC) 2020 Type 2, after having covid, well controlled with recent A1C of 5.3 on 06/17 Migraine 2011 Imitrex 100mg as needed Polycystic ovary syndrome 2013 STD (sexually transmitted disease) Urogenital trichomoniasis 2020 Treated with Flagyl 2000mg one chose Surgical Hx: Past Surgical History: Procedure Laterality Date CHOLECYSTECTOMY 06/2021 [facility] Family Hx: Family History Problem Relation Age of Onset Hypertension Mother Hypertension Father Stroke Father Breast cancer Paternal Aunt Breast cancer Paternal Aunt Breast cancer Paternal Grandmother Diabetes Paternal Grandmother Genetic Hx: Please add what is listed under genetic hx tab if anything is answered YES by patient - No CORONER FORENSIC TECHNICIAN Hx: CORONER FORENSIC TECHNICIAN surg/biopsies (any hx of leep, cold cone biopsy, cervical surgeries): no Hx of STI: (recent GC/CT/Trich, hx of HSV, hx of HIV, hx of Hep C): had Trich 2020 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 no Nursing Education: Oriented to our practice, we have 3 offices ([place], [place], & [place]). We only do deliveries at [facility] ([address] [place] [address]), office policies reviewed, HCG and Dating US ordered. Dating US to be scheduled after HCG read by provider. Encouraged to use [employer] for general questions, but concerns should be addressed by calling the nurse line. Reviewed vaccinations. Verbal information reviewed regarding Flu, COVID, RSV & TDAP Reviewed My Guide and Journal booklet to be given at first full care OB appointment. Included is a list of over the counter medications that are safe in for common illnesses. Other items reviewed in booklet- healthy lifestyle, diet (safe food handling, avoidance of unpasteurized soft cheeses and deli meat/hot dogs, and limiting mercury-containing fish consumption), exercises. Personal history and surgeries reviewed. Medications/allergies, pharmacy information obtained Extensive OB history completed including Genetic history risk factors assessed. risk factors may include obesity, morbid obesity, OB history, social history, medical history. Aneuploidy testing applicable for patient's age and gestational age to be discussed at first OB visit. Instructed patient on avoidance of cat litter/feces and raw meat. Counseling done on nicotine, alcohol, and illicit drug use if appropriate. Travel and work/environmental hazards reviewed. Lifting restrictions reviewed. Domestic violence screening completed. Donor milk information provided Ultrasound indications reviewed (There are typically only 2 ultrasounds during . Dating US around 8-10 weeks and Anatomy US around 20-22 weeks.) This is subject to change per patient and provider guidelines. Handout for childbirth classes and hospital information to be given to pt at first visit. Reviewed 20-22 wk Anatomy scan Follow up appointments reviewed, discussed making at least 3 appointments ahead when scheduling. PT INFORMATION: If you have any bleeding (or spotting), cramping, loss of fluid, significant nausea and vomiting or decreased movement please call the office or report to the [facility] emergency room. Once the office receives your HCG blood level back someone will call you to schedule your dating ultrasound around 8 weeks gestation Once your dating ultrasound is completed it will be read by a physician usually within 7-10 business days and someone from the office will call you to schedule for initial visit with a provider around 10-14 weeks. At this initial visit we will review this call and notes, review OB hx, do a physical exam, do a pelvic exam, and order blood work for your . You will also be offered optional genetic testing that will be reviewed at this appointment. NIPT testing and carrier screening. After this appointment you will be scheduled for your next OB visits before leaving. The typical schedule of visits is every 4 weeks from 10-28 weeks, every 2 weeks from 28-36 weeks, and then weekly from 36-42 weeks. This is dependent per pt as well. Pt to be given office policy letter to sign upon first OB appointment. Included is a no show policy, cancellation policy less than 24 hours notice, late visit over 15 minutes. [1] Current Outpatient Medications: busPIRone (BUSPAR) 15 MG tablet, Take 1 (one) tablet (15 mg total) by mouth 2 (two) times a day ., Disp: , Rfl: colestipoL (COLESTID) 1 gram tablet, Take 1 (one) tablet (1 g total) by mouth 2 (two) times a day ., Disp: , Rfl: cyanocobalamin (B-12) 1,000 mcg/mL injection, Inject 1 mL (1,000 mcg total) into the shoulder, thigh, or buttocks every 30 (thirty) days ., Disp: , Rfl: dicyclomine (BENTYL) 20 mg tablet, Take 1 (one) tablet (20 mg total) by mouth 3 (three) times a day as needed ., Disp: , Rfl: escitalopram oxalate (LEXAPRO) 20 MG tablet, Take 1 (one) tablet (20 mg total) by mouth daily ., Disp: , Rfl: metFORMIN (GLUCOPHAGE-XR) 500 MG 24 hr tablet, Take 1 (one) tablet (500 mg total) by mouth daily ., Disp: , Rfl: nebivoloL (BYSTOLIC) 5 MG tablet, Take 1 (one) tablet (5 mg total) by mouth daily Patient states she only takes one tablet daily. ., Disp: , Rfl: SUMAtriptan (IMITREX) 100 MG tablet, Take 1 (one) tablet (100 mg total) by mouth every 2 (two) hours as needed ., Disp: , Rfl: modafiniL (PROVIGIL) 100 MG tablet, Take 1 (one) tablet (100 mg total) by mouth daily Thursday through Thursday only per patient ., Disp: , Rfl: Ozempic 2 mg/dose (8 mg/3 mL) Pen, Inject 0.75 mL (2 mg total) under the skin once a week ., Disp: , Rfl: documented in this encounter [facility] 01-19-2024 Note Well woman visit Sub Alma Ulloa is a 38 y.o. who presents today for her well woman visit. She does not have any specific complaints at this time and otherwise is doing well. She has monthly periods that last for 5 days at a time with moderate flow. She does experience moderate for which she uses ibuprofen which reduces it to a 08/01. She states that she does not exercises and is on Ozempic for weight loss. She endorses having a balanced diet. She is sexually active and is not using BCM. She is not actively trying to get due to timing for dates with her boyfriend and his hesitation for child bearing but she is interested in conceiving. She denies pelvic pain, foul smelling vaginal discharge, vaginal itching , dysuria and irregular vaginal bleeding. Date of last pap: 2021 Results normal?: yes Past Medical History: Diagnosis Date Diabetes mellitus (HCC) 2020 Type 2, after having covid, well controlled with recent A1C of 5.3 on 06/17 Migraine 2011 Imitrex 100mg as needed Polycystic ovary syndrome 2013 STD (sexually transmitted disease) Urogenital trichomoniasis 2020 Treated with Flagyl 2000mg one chose Active Home Medications Medication Sig Take Last Dose On Take Morning of Surgery Comment(s) busPIRone (BUSPAR) 15 MG tablet Take 1 (one) tablet (15 mg total) by mouth 2 (two) times a day . colestipoL (COLESTID) 1 gram tablet Take 1 (one) tablet (1 g total) by mouth 2 (two) times a day . cyanocobalamin (B-12) 1,000 mcg/mL injection Inject 1 mL (1,000 mcg total) into the shoulder, thigh, or buttocks every 30 (thirty) days . dicyclomine (BENTYL) 20 mg tablet Take 1 (one) tablet (20 mg total) by mouth 3 (three) times a day as needed . escitalopram oxalate (LEXAPRO) 20 MG tablet Take 1 (one) tablet (20 mg total) by mouth daily . metFORMIN (GLUCOPHAGE-XR) 500 MG 24 hr tablet Take 1 (one) tablet (500 mg total) by mouth 2 (two) times a day . modafiniL (PROVIGIL) 100 MG tablet Take 1 (one) tablet (100 mg total) by mouth daily Thursday through Thursday only per patient . nebivoloL (BYSTOLIC) 5 MG tablet Take 1 (one) tablet (5 mg total) by mouth 2 (two) times a day Patient states she only takes one tablet daily. . Ozempic 2 mg/dose (8 mg/3 mL) Pen Inject 0.75 mL (2 mg total) under the skin once a week . SUMAtriptan (IMITREX) 100 MG tablet Take 1 (one) tablet (100 mg total) by mouth every 2 (two) hours as needed . Past Surgical History: Procedure Laterality Date CHOLECYSTECTOMY 06/2021 [facility] Any family history of: Breast cancer: Yes, Paternal grandmother 70 years, paternal aunt 40 years old Colon cancer: No Uterine cancer: No Ovarian cancer: No Do you use alcohol? Yes, rarely Do you smoke? No Do you use street drugs? No Do you use caffeine? Yes, 2 cup daily The following portions of the patient's history were reviewed and updated as appropriate: allergies, current medications, past family history, past medical history, past social history, past surgical history and problem list. Review of Systems Objective: Physical Exam BP 111/72 Pulse 87 Ht 5' 2 Wt 101.6 kg (224 lb) LMP 12/27/2023 (Exact Date) BMI 40.97 kg/m General: Alert, well nourished, in no apparent distress HEENT: Normocephalic, atraumatic Lungs: no respiratory distress. Breast: No skin changes, no masses, no nipple discharge, no tenderness to palpation, no axillary lymphadenopathy Abdominal: Soft, no visible masses, no skin changes : VULVA: normal appearing vulva with no masses, tenderness or lesions VAGINA: normal appearing vagina with normal color and discharge, no lesions CERVIX: normal appearing cervix without discharge or lesions. There is no cervical motion tenderness on bimanual exam. UTERUS: uterus is normal size, shape, consistency and nontender ADNEXA: normal adnexa in size, nontender and no masses. Discussed elevated Body Mass Index (BMI): Advised regular exercise. Discussed elevated Body Mass Index (BMI): Advised healthy and appropriate diet. Rationale: Overweight (Findings) BMI Assessment/Plan: 1. Routine Gynecological Examination - PAP obtained today per guidelines. Discussed elevated Body Mass Index (BMI): Advised regular exercise. Discussed elevated Body Mass Index (BMI): Advised healthy and appropriate diet. Rationale: Overweight (Findings) BMI - F/u in 1 year for annual well woman exam. - FU STD screening Claudy Cortez MD Obstetrics and Gynecology [facility] [address] [place] [address] Claudy Cortez MD AUTHENTICATED BY CLAUDY CORTEZ, ON 01/19/2024 17:51:[address] [facility] 01-19-2024 History of Present illness Narrative Images from the original note were not included. Well woman visit Sub Alma Ulloa is a 38 y.o. who presents today for her well woman visit. She does not have any specific complaints at this time and otherwise is doing well. She has monthly periods that last for 5 days at a time with moderate flow. She does experience moderate for which she uses ibuprofen which reduces it to a 3//10. She states that she does not exercises and is on Ozempic for weight loss. She endorses having a balanced diet. She is sexually active and is not using BCM. She is not actively trying to get due to timing for dates with her boyfriend and his hesitation for child bearing but she is interested in conceiving. She denies pelvic pain, foul smelling vaginal discharge, vaginal itching , dysuria and irregular vaginal bleeding. Date of last pap: 2021 Results normal?: yes Past Medical History: Diagnosis Date Diabetes mellitus (HCC) 2020 Type 2, after having covid, well controlled with recent A1C of 5.3 on 06/17 Migraine 2011 Imitrex 100mg as needed Polycystic ovary syndrome 2013 STD (sexually transmitted disease) Urogenital trichomoniasis 2020 Treated with Flagyl 2000mg one chose Active Home Medications Medication Sig Take Last Dose On Take Morning of Surgery Comment(s) busPIRone (BUSPAR) 15 MG tablet Take 1 (one) tablet (15 mg total) by mouth 2 (two) times a day . colestipoL (COLESTID) 1 gram tablet Take 1 (one) tablet (1 g total) by mouth 2 (two) times a day . cyanocobalamin (B-12) 1,000 mcg/mL injection Inject 1 mL (1,000 mcg total) into the shoulder, thigh, or buttocks every 30 (thirty) days . dicyclomine (BENTYL) 20 mg tablet Take 1 (one) tablet (20 mg total) by mouth 3 (three) times a day as needed . escitalopram oxalate (LEXAPRO) 20 MG tablet Take 1 (one) tablet (20 mg total) by mouth daily . metFORMIN (GLUCOPHAGE-XR) 500 MG 24 hr tablet Take 1 (one) tablet (500 mg total) by mouth 2 (two) times a day . modafiniL (PROVIGIL) 100 MG tablet Take 1 (one) tablet (100 mg total) by mouth daily Thursday through Thursday only per patient . nebivoloL (BYSTOLIC) 5 MG tablet Take 1 (one) tablet (5 mg total) by mouth 2 (two) times a day Patient states she only takes one tablet daily. . Ozempic 2 mg/dose (8 mg/3 mL) Pen Inject 0.75 mL (2 mg total) under the skin once a week . SUMAtriptan (IMITREX) 100 MG tablet Take 1 (one) tablet (100 mg total) by mouth every 2 (two) hours as needed . Past Surgical History: Procedure Laterality Date CHOLECYSTECTOMY 06/2021 [facility] Any family history of: Breast cancer: Yes, Paternal grandmother 70 years, paternal aunt 40 years old Colon cancer: No Uterine cancer: No Ovarian cancer: No Do you use alcohol? Yes, rarely Do you smoke? No Do you use street drugs? No Do you use caffeine? Yes, 2 cup daily The following portions of the patient's history were reviewed and updated as appropriate: allergies, current medications, past family history, past medical history, past social history, past surgical history and problem list. Review of Systems Objective: Physical Exam BP 111/72 Pulse 87 Ht 5' 2 Wt 101.6 kg (224 lb) LMP 12/27/2023 (Exact Date) BMI 40.97 kg/m General: Alert, well nourished, in no apparent distress HEENT: Normocephalic, atraumatic Lungs: no respiratory distress. Breast: No skin changes, no masses, no nipple discharge, no tenderness to palpation, no axillary lymphadenopathy Abdominal: Soft, no visible masses, no skin changes : VULVA: normal appearing vulva with no masses, tenderness or lesions VAGINA: normal appearing vagina with normal color and discharge, no lesions CERVIX: normal appearing cervix without discharge or lesions. There is no cervical motion tenderness on bimanual exam. UTERUS: uterus is normal size, shape, consistency and nontender ADNEXA: normal adnexa in size, nontender and no masses. Discussed elevated Body Mass Index (BMI): Advised regular exercise. Discussed elevated Body Mass Index (BMI): Advised healthy and appropriate diet. Rationale: Overweight (Findings) BMI Assessment/Plan: 1. Routine Gynecological Examination - PAP obtained today per guidelines. Discussed elevated Body Mass Index (BMI): Advised regular exercise. Discussed elevated Body Mass Index (BMI): Advised healthy and appropriate diet. Rationale: Overweight (Findings) BMI - F/u in 1 year for annual well woman exam. - FU STD screening Claudy Cortez MD Obstetrics and Gynecology [facility] [address] [place] [address] Claudy Cortez MD documented in this encounter [facility] 08-11-2023 History of Present illness Narrative Images from the original note were not included. CORONER FORENSIC TECHNICIAN VISIT Subjective Alma Ulloa is a 38 y.o. G0 who presents today to establish care and discuss infertility. She mentions that she has been seeing an OBGYN out of network and have been diagnosed PCOS. She states that she does have monthly periods since stopping control for the past 3 years. She mentions losing about 80 pounds in the last 3 years since being on Ozempic. Her periods now last for 4-5 days with her soaking a tampon every 6-8 hours. She states that she has been having unprotected intercourse for 3 years but her partner also have ED as well so intercourse is rare. She unsure whether or not she actually wants to conceive but her partner sometimes wants to. Additionally, she states she has 8/10 pelvic pain during her periods for which she takes tylenol and motrin and that decreases it to 5/10 intensity. She denies any facial hair , cystic acne. She denies any foul smelling vaginal discharge, itching, dysuria and irregular bleeding. Last pap was 2021 years ago , normal per patient. Past Medical History: Diagnosis Date Diabetes mellitus (HCC) 2020 Type 2, after having covid, well controlled with recent A1C of 5.3 on 06/17 Migraine 2011 Imitrex 100mg as needed Polycystic ovary syndrome 2013 Urogenital trichomoniasis 2020 Treated with Flagyl 2000mg one chose Active Home Medications Medication Sig Take Last Dose On Take Morning of Surgery Comment(s) busPIRone (BUSPAR) 15 MG tablet Take 1 (one) tablet (15 mg total) by mouth 2 (two) times a day . colestipoL (COLESTID) 1 gram tablet Take 1 (one) tablet (1 g total) by mouth 2 (two) times a day . cyanocobalamin (B-12) 1,000 mcg/mL injection Inject 1 mL (1,000 mcg total) into the shoulder, thigh, or buttocks every 30 (thirty) days . dicyclomine (BENTYL) 20 mg tablet Take 1 (one) tablet (20 mg total) by mouth 3 (three) times a day as needed . escitalopram oxalate (LEXAPRO) 20 MG tablet Take 1 (one) tablet (20 mg total) by mouth daily . metFORMIN (GLUCOPHAGE-XR) 500 MG 24 hr tablet Take 1 (one) tablet (500 mg total) by mouth 2 (two) times a day . modafiniL (PROVIGIL) 100 MG tablet Take 1 (one) tablet (100 mg total) by mouth daily Thursday through Thursday only per patient . nebivoloL (BYSTOLIC) 5 MG tablet Take 1 (one) tablet (5 mg total) by mouth 2 (two) times a day Patient states she only takes one tablet daily. . Ozempic 2 mg/dose (8 mg/3 mL) Pen Inject 0.75 mL (2 mg total) under the skin once a week . SUMAtriptan (IMITREX) 100 MG tablet Take 1 (one) tablet (100 mg total) by mouth every 2 (two) hours as needed . Past Surgical History: Procedure Laterality Date CHOLECYSTECTOMY 06/2021 [facility] No Known Allergies Any family history of: Breast cancer: Yes, Paternal grandmother 70 years, paternal aunt 40 years old Colon cancer: No Uterine cancer: No Ovarian cancer: No Do you use alcohol? Yes, rarely Do you smoke? No Do you use street drugs? No Do you use caffeine? Yes, 2 cup daily The following portions of the patient's history were reviewed and updated as appropriate: allergies, current medications, past family history, past medical history, past social history, past surgical history and problem list. Review of Systems Objective: Physical Exam BP 121/79 Pulse 88 Ht 5' 2 Wt 103 kg (227 lb) LMP 08/04/2023 (Exact Date) BMI 41.52 kg/m General: Alert, well nourished, in no apparent distress HEENT: Normocephalic, atraumatic Lungs: No visible distress with breaths Assessment/Plan: 1. 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 Claudy Cortez MD Obstetrics and Gynecology [facility] [address] [place] [address] documented in this encounter [facility] 07-01-[address] [facility] Medical Records Department [address] [place] [address] History Physical Exam 07/01/21 0657 MR#: [id number] Acct: [id number] Name: ALMA ULLOA Rep #: [id number] : 1985 36 From: Toro Epstein MD PCP: Dr. Odalys Raymond, DO Status:[facility] Location: [place] [address] History and Physical Date of Admission: 07/01/21 Intake Visit Reasons: GALLBLADDER Chief Complaint: Gallstone Education And Development Manager Required: No Is patient in pain?: No Allergies No Known Allergies Allergy (Verified 06/27/21 09:40) Medications cholecalciferol (vitamin D3) [Vitamin D3] 125 mcg PO DAILY 11/23/20 [History Confirmed 06/27/21] escitalopram oxalate 20 mg PO DAILY 11/23/20 [History Confirmed 06/27/21] ibuprofen [IBU] 800 mg PO BID PRN 11/23/20 [History Confirmed 06/27/21] nebivolol [Bystolic] 5 mg PO DAILY 11/23/20 [History Confirmed 06/27/21] dicyclomine 20 mg tablet 20 mg PO TID PRN #90 tab 06/07/21 [Rx Confirmed 06/27/21] budesonide 3 mg capsule,delayed,extended release 6 mg PO DAILY ea 06/27/21 [History Confirmed 06/27/21] esomeprazole magnesium 20 mg capsule,delayed release 20 mg PO DAILY PRN 06/27/21 [History Confirmed 06/27/21] famotidine 20 mg tablet 20 mg PO DAILY PRN 06/27/21 [History Confirmed 06/27/21] metformin 500 mg tablet 500 mg PO DAILY tab 06/27/21 [History Confirmed 06/27/21] semaglutide 1 mg/dose (2 mg/1.5 mL) subcutaneous pen injector 1 mg SUBCUT QWEEK ml 06/27/21 [History Confirmed 06/27/21] [facility] Medical History (Updated 06/27/21 @ 10:[address] Toro Epstein MD) Abnormal coagulation profile Anxiety Chest pain of uncertain etiology Cholelithiasis CPAP (continuous positive airway pressure) dependence Depression Diabetes Diarrhea Epigastric pain Fatty (change of) liver, not elsewhere classified Fatty liver Gastric reflux Gastroparesis Generalized weakness Hypertension Migraine headache Non-smoker PCOS (polycystic ovarian syndrome) Pre-diabetes Sleep apnea Wears glasses Surgical History (Updated 06/27/21 @ 09:34 by Lexie Lerma) No history of previous surgery Family History Father Hypertension CVA (cerebral vascular accident) High blood cholesterol Mother Hypertension Thyroid disorder Asthma Social History (Updated 06/27/21 @ 09:36 by Lexie Lerma) Smoking Status: Never smoker alcohol intake: never substance use type: does not use HPI HPI HPI: ALMA ULLOA, is a 36 F who presents to the office today for surgical consultation regarding removal of her gallbladder and liver biopsy. The patient is referred by Dr. Joe Arias and Isidra Wallace CNP and a written copy of my surgical consult recommendations will return to them. The patient has had a gastroenterology work-up for chronic diarrhea cramping and urgency. She had an upper and lower endoscopy. The lower endoscopy was hampered secondary to a poor bowel prep. Random biopsies were negative. Apparently there is still is concerned about the possibility of lymphocytic colitis as the patient has an elevated CRP and ESR. Her ESR was 32 and CRP 12.8. The patient is being tried on budesonide and dicyclomine. Her upper endoscopy was compromised by a large amount of food residual within the stomach. Duodenal biopsies were unremarkable. Distal esophageal biopsies showed mild chronic inflammation. Investigations previously on November 23, 2020 with an emergency room visit because of the patient's complaint of chest pain shortness of breath and tachycardia a CTA of the chest demonstrated hepatomegaly with fatty infiltration. A more recent right upper quadrant ultrasound performed May 20, 2021 demonstrates an enlarged liver measuring 20.3 cm with fatty infiltration. Gallbladder wall is 2.6 mm. Solitary gallstone measuring 4.4 x 2.5 x 2.2 cm. Common bile duct 3.1 mm. Elastography was also performed. Median liver stiffness measured 4kPa. The patient is being specifically referred for cholecystectomy and liver biopsy. Medical and surgical care are compromised by body habitus of 134 kg and a BMI of 54 She has also been seen in consultation by Dr. Bob Johnson hematology because of abnormal coagulation profile. Her PT deluded is 48.2 with high normal being 47.6. PTT is 36.6 with high normal being 36.2 The patient claims that about every other month or so she will have these attacks of retrosternal discomfort. She states she had one last night. She took Nexium and within about 30 minutes it resolved. She is not sure whether this is related to her esophagus or possibly gallstone but she presses to the mid retrosternal area and not the abdomen. 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 ROS General General: Yes fatigue; No weight change, appetite, colon cancer, breast cancer or weakness HEENT HEENT: No difficulty swallowing, eye injury, eye surg (more content not included)... [facility] 05-23-[address] [facility] Medical Records Department [address] [place] [address] History Physical Exam 05/23/21 0837 MR#: [id number] Acct: [id number] Name: ALMA ULLOA Rep #: [id number] : 1985 36 From: Joe Friend DO PCP: Dr. Odalys Raymond, DO Status:[facility] Location: [place] [address] History and Physical Date of Admission: 05/23/21 35 F who presents to the office today for evaluation of diarrhea. She also has been having some abdominal pain. 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 Her diarrhea and abdominal pain got significantly better after being on Metformin. Currently for which she is on Ozempic. Back to doing very well from the medicine. However her diarrhea has gotten to the point she is having nocturnal diarrhea. She has difficulty with diarrhea each day with 5-10 episodes a day. She has attempted bland diets. Vegetables, salads, processed foods, eating out all trigger. COVID diagnosis in September. Worried because health issues have worsened to include DMII and worsened HTN. PCP attempted metformin which worsened diarrhea. Ozempic taking now and feels this is delaying her gastric emptying and causing worsening diarrhea. Reporting 20lb weight loss since November 2021. Also reports gas and bloating. Sigmoidoscopy performed 10 years prior, she reports nothing abnormal. Chest CTA 11/23/20 performed during ED visit with findings of enlarged liver and fatty infiltration. ROS Const Constitutional: Positive for fatigue and headache(s) ENT ENT: Positive for nasal congestion, headache(s) and sore throat Gastro GI: Positive for abdominal pain, bloating, diarrhea and heartburn Musc Musculoskeletal: Positive for back pain Neuro Neurology: Positive for headache(s) Psych Psychiatric: Positive for anxiety Endo Endocrine: Positive for fatigue Exam Const General: cooperative and comfortable Nutritional Appearance: average body habitus and well nourished HENDE Head: normal to inspection Ears: hearing grossly normal bilaterally Nose: external nose normal Face and sinus: normal facial exam Mouth: oral mucosae normal Throat: posterior oropharynx normal Eyes General: appearance normal, both eyes and all related structures Neck Neck: normal visual inspection Chest Chest palpation inspection: normal inspection of the chest and normal palpation of entire chest wall Resp Effort Inspection: normal respiratory effort Auscultation: Bilateral: Clear to Auscultation Cardio Palpation: normal PMI Rate: regular rate Rhythm: regular rhythm GI Inspection: normal to inspection Auscultation: normal bowel sounds Percussion: normal to percussion Palpation: no hepatosplenomegaly Skin General: no rashes or lesions noted Neuro General: patient alert Extrem General: normal to inspection Psych Affect: normal affect Quality Reporting Tobacco Screening ([facility] 138) Smoking Status: Never smoker Assessment and Plan Assessment and Plan (1) Diarrhea: Status: Acute Orders: Orders: Colonoscopy Today EGD Today Liver Today Plan - Dr. Diaz Friend, DO: She will undergo colonoscopy. At this time we will also perform stool studies with biopsies. She will undergo biochemical testing. (2) Fatty (change of) liver, not elsewhere classified: Status: Acute Orders: Orders: Colonoscopy Today EGD Today CRP Today LDH Today Erythrocyte Sed Rate Today Anti-Mitochondrial AB Today Angiotensin Convert Enzyme Today ANCA Today Anti-Smooth Muscle ABS Today Antithrombin 3 Function Today Celiac Disease Profile Today Ceruloplasmin Today Copper, Serum or Plasma Today Fact V Leiden Mutation Today Immunoglobulin E Today Immunoglobulin G Today Immunoglobulin M Today Lupus Anticoagulant Comp Today Protein S Antigen Today Hepatitis C Antibody Today EBV Acute Prof IgG / IgM Today Miscellaneous Lab Procedure Today Liver Today Elastography Parenchyma/Organ Today Plan - Dr. Joe Arias, DO: Her hepatomegaly is likely secondary to fatty liver disease. However because her PTT is prolonged. We will assess for hypercoagulable disorder and also look for other signs Plan Details Other Medications: New: bisacodyl 5 mg PO ONCE 4 tabs 0RF polyethylene glycol 3350 (Miralax) take as directed for bowel 17 grams PO DAILY 238 grams 0RF I have re-examined the patient. There are no clinical changes since date of exam. 05/23/21 0838 Cosigner Signature (if applicable): CC: Dr. Odalys Raymond DO; Joe Arias DO Signed [facility] Evaluation note Diagnosis Onset Date Cholelithiasis acute Fatty liver acute Cholelithiasis with chronic cholecystitis chronic Fatty (change of) liver, not elsewhere classified acute Cholelithiasis with chronic cholecystitis chronic Fatty liver acute Hepatitis acute Cholelithiasis with chronic cholecystitis chronic Diarrhea acute Fatty liver acute Abnormal coagulation profile [facility] Work Phone: Evaluation note* Diagnosis Onset Date Resolution Status Fatty (change of) liver, not elsewhere classified acute Cholelithiasis with chronic cholecystitis chronic Fatty liver acute Hepatitis acute Cholelithiasis with chronic cholecystitis chronic Diarrhea acute Fatty liver acute Abnormal coagulation profile [facility] Work Phone: Evaluation note* Diagnosis Encounter to establish care- Primary Infertility, female [facility] Diagnosis Well woman exam with routine gynecological exam- Primary Routine gynecological examination [facility] for breast cancer- Primary [facility] Diagnosis , unspecified gestational age- Primary [facility] Diagnosis Secondary oligomenorrhea- Primary Scanty or infrequent menstruation Abnormal uterine bleeding Unspecified disorder of menstruation and other abnormal bleeding from female genital tract Complete miscarriage Complete spontaneous without mention of complication Controlled type 2 diabetes mellitus without complication, without long-term current use of insulin (HCC) Morbid obesity with BMI of 40.0-44.9, adult (HCC) [facility] assessment information [facility] Work Phone: Instructions* Name Dates Details How to access health informa tion online Indication:Non-smoker Start:20-Feb-2020 Instruction Type:Patient Education How to access health informa tion online - Detail Indication:Non-smoker Start:20-Feb-2020 Instruction Type:Patient Education Patient Instructions Indication:Non-smoker Start:20-Feb-2020 Instruction Type:Provider Instructions for Treatment How to access health informa tion online Indication:Insulin resistance Start:14-Oct-2018 Instruction Type:Patient Education How to access health informa tion online - Detail Indication:Insulin resistance Start:14-Oct-2018 Instruction Type:Patient Education Patient Instructions Indication:Insulin resistance Start:14-Oct-2018 Instruction Type:Provider Instructions for Treatment How to access health informa tion online Indication:Non-smoker Start:20-Jan-2018 Instruction Type:Patient Education How to access health informa tion online - Detail Indication:Non-smoker Start:20-Jan-2018 Instruction Type:Patient Education Patient Instructions Indication:Non-smoker Start:20-Jan-2018 Instruction Type:Provider Instructions for Treatment How to access health informa tion online Indication:Non-smoker Start:12-Nov-2016 Instruction Type:Patient Education How to access health informa tion online - Detail Indication:Non-smoker Start:12-Nov-2016 Instruction Type:Patient Education Patient Instructions Indication:Non-smoker Start:12-Nov-2016 Instruction Type:Provider Instructions for Treatment Patient Instructions Indication:Vitamin D deficiency Start:05-Oct-2015 Instruction Type:Provider Instructions for Treatment How to access health informa tion online Indication:Vitamin D deficiency Start:22-Nov-2014 Instruction Type:Patient Education How to access health informa tion online - Detail Indication:Vitamin D deficiency Start:22-Nov-2014 Instruction Type:Patient Education Patient Instructions Indication:Vitamin D deficiency Start:22-Nov-2014 Instruction Type:Provider Instructions for Treatment Patient Instructions Indication:Back pain Start:22-Nov-2014 Instruction Type:Provider Instructions for Treatment [facility]; [facility] Work Phone: Instructions* Name Dates Details How to Access Health Informa tion Online using Patient Portal and [employer] Apps Indication:Non-smoker Start:30-Nov-2020 Instruction Type:Patient Education Patient Instructions Indication:Non-smoker Start:30-Nov-2020 Instruction Type:Provider Instructions for Treatment How to access health informa tion online Indication:Non-smoker Start:20-Feb-2020 Instruction Type:Patient Education How to access health informa tion online - Detail Indication:Non-smoker Start:20-Feb-2020 Instruction Type:Patient Education Patient Instructions Indication:Non-smoker Start:20-Feb-2020 Instruction Type:Provider Instructions for Treatment How to access health informa tion online Indication:Insulin resistance Start:14-Oct-2018 Instruction Type:Patient Education How to access health informa tion online - Detail Indication:Insulin resistance Start:14-Oct-2018 Instruction Type:Patient Education Patient Instructions Indication:Insulin resistance Start:14-Oct-2018 Instruction Type:Provider Instructions for Treatment How to access health informa tion online Indication:Non-smoker Start:20-Jan-2018 Instruction Type:Patient Education How to access health informa tion online - Detail Indication:Non-smoker Start:20-Jan-2018 Instruction Type:Patient Education Patient Instructions Indication:Non-smoker Start:20-Jan-2018 Instruction Type:Provider Instructions for Treatment How to access health informa tion online Indication:Non-smoker Start:12-Nov-2016 Instruction Type:Patient Education How to access health informa tion online - Detail Indication:Non-smoker Start:12-Nov-2016 Instruction Type:Patient Education Patient Instructions Indication:Non-smoker Start:12-Nov-2016 Instruction Type:Provider Instructions for Treatment Patient Instructions Indication:Vitamin D deficiency Start:05-Oct-2015 Instruction Type:Provider Instructions for Treatment How to access health informa tion online Indication:Vitamin D deficiency Start:22-Nov-2014 Instruction Type:Patient Education How to access health informa tion online - Detail Indication:Vitamin D deficiency Start:22-Nov-2014 Instruction Type:Patient Education Patient Instructions Indication:Vitamin D deficiency Start:22-Nov-2014 Instruction Type:Provider Instructions for Treatment Patient Instructions Indication:Back pain Start:22-Nov-2014 Instruction Type:Provider Instructions for Treatment [facility]; [facility] Work Phone: Instructions* Name Dates Details How to Access Health Informa tion Online using Patient Portal and [employer] Apps Indication:Non-smoker Start:30-Nov-2020 Instruction Type:Patient Education Patient Instructions Indication:Non-smoker Start:30-Nov-2020 Instruction Type:Provider Instructions for Treatment How to access health informa tion online Indication:Non-smoker Start:20-Feb-2020 Instruction Type:Patient Education How to access health informa tion online - Detail Indication:Non-smoker Start:20-Feb-2020 Instruction Type:Patient Education Patient Instructions Indication:Non-smoker Start:20-Feb-2020 Instruction Type:Provider Instructions for Treatment How to access health informa tion online Indication:Insulin resistance Start:14-Oct-2018 Instruction Type:Patient Education How to access health informa tion online - Detail Indication:Insulin resistance Start:14-Oct-2018 Instruction Type:Patient Education Patient Instructions Indication:Insulin resistance Start:14-Oct-2018 Instruction Type:Provider Instructions for Treatment How to access health informa tion online Indication:Non-smoker Start:20-Jan-2018 Instruction Type:Patient Education How to access health informa tion online - Detail Indication:Non-smoker Start:20-Jan-2018 Instruction Type:Patient Education Patient Instructions Indication:Non-smoker Start:20-Jan-2018 Instruction Type:Provider Instructions for Treatment How to access health informa tion online Indication:Non-smoker Start:12-Nov-2016 Instruction Type:Patient Education How to access health informa tion online - Detail Indication:Non-smoker Start:12-Nov-2016 Instruction Type:Patient Education Patient Instructions Indication:Non-smoker Start:12-Nov-2016 Instruction Type:Provider Instructions for Treatment Patient Instructions Indication:Vitamin D deficiency Start:05-Oct-2015 Instruction Type:Provider Instructions for Treatment How to access health informa tion online Indication:Vitamin D deficiency Start:22-Nov-2014 Instruction Type:Patient Education How to access health informa tion online - Detail Indication:Vitamin D deficiency Start:22-Nov-2014 Instruction Type:Patient Education Patient Instructions Indication:Vitamin D deficiency Start:22-Nov-2014 Instruction Type:Provider Instructions for Treatment Patient Instructions Indication:Back pain Start:22-Nov-2014 Instruction Type:Provider Instructions for Treatment [facility]; [facility] Work Phone: Instructions* Name Dates Details How to Access Health Informa tion Online using Patient Portal and [employer] Apps Indication:Non-smoker Start:30-Nov-2020 Instruction Type:Patient Education Patient Instructions Indication:Non-smoker Start:30-Nov-2020 Instruction Type:Provider Instructions for Treatment How to access health informa tion online Indication:Non-smoker Start:20-Feb-2020 Instruction Type:Patient Education How to access health informa tion online - Detail Indication:Non-smoker Start:20-Feb-2020 Instruction Type:Patient Education Patient Instructions Indication:Non-smoker Start:20-Feb-2020 Instruction Type:Provider Instructions for Treatment How to access health informa tion online Indication:Insulin resistance Start:14-Oct-2018 Instruction Type:Patient Education How to access health informa tion online - Detail Indication:Insulin resistance Start:14-Oct-2018 Instruction Type:Patient Education Patient Instructions Indication:Insulin resistance Start:14-Oct-2018 Instruction Type:Provider Instructions for Treatment How to access health informa tion online Indication:Non-smoker Start:20-Jan-2018 Instruction Type:Patient Education How to access health informa tion online - Detail Indication:Non-smoker Start:20-Jan-2018 Instruction Type:Patient Education Patient Instructions Indication:Non-smoker Start:20-Jan-2018 Instruction Type:Provider Instructions for Treatment How to access health informa tion online Indication:Non-smoker Start:12-Nov-2016 Instruction Type:Patient Education How to access health informa tion online - Detail Indication:Non-smoker Start:12-Nov-2016 Instruction Type:Patient Education Patient Instructions Indication:Non-smoker Start:12-Nov-2016 Instruction Type:Provider Instructions for Treatment Patient Instructions Indication:Vitamin D deficiency Start:05-Oct-2015 Instruction Type:Provider Instructions for Treatment How to access health informa tion online Indication:Vitamin D deficiency Start:22-Nov-2014 Instruction Type:Patient Education How to access health informa tion online - Detail Indication:Vitamin D deficiency Start:22-Nov-2014 Instruction Type:Patient Education Patient Instructions Indication:Vitamin D deficiency Start:22-Nov-2014 Instruction Type:Provider Instructions for Treatment Patient Instructions Indication:Back pain Start:22-Nov-2014 Instruction Type:Provider Instructions for Treatment [facility]; [facility] Work Phone: Instructions* Name Dates Details How to Access Health Informa tion Online using Patient Portal and [employer] Apps Indication:Non-smoker Start:30-Nov-2020 Instruction Type:Patient Education Patient Instructions Indication:Non-smoker Start:30-Nov-2020 Instruction Type:Provider Instructions for Treatment How to access health informa tion online Indication:Non-smoker Start:20-Feb-2020 Instruction Type:Patient Education How to access health informa tion online - Detail Indication:Non-smoker Start:20-Feb-2020 Instruction Type:Patient Education Patient Instructions Indication:Non-smoker Start:20-Feb-2020 Instruction Type:Provider Instructions for Treatment How to access health informa tion online Indication:Insulin resistance Start:14-Oct-2018 Instruction Type:Patient Education How to access health informa tion online - Detail Indication:Insulin resistance Start:14-Oct-2018 Instruction Type:Patient Education Patient Instructions Indication:Insulin resistance Start:14-Oct-2018 Instruction Type:Provider Instructions for Treatment How to access health informa tion online Indication:Non-smoker Start:20-Jan-2018 Instruction Type:Patient Education How to access health informa tion online - Detail Indication:Non-smoker Start:20-Jan-2018 Instruction Type:Patient Education Patient Instructions Indication:Non-smoker Start:20-Jan-2018 Instruction Type:Provider Instructions for Treatment How to access health informa tion online Indication:Non-smoker Start:12-Nov-2016 Instruction Type:Patient Education How to access health informa tion online - Detail Indication:Non-smoker Start:12-Nov-2016 Instruction Type:Patient Education Patient Instructions Indication:Non-smoker Start:12-Nov-2016 Instruction Type:Provider Instructions for Treatment Patient Instructions Indication:Vitamin D deficiency Start:05-Oct-2015 Instruction Type:Provider Instructions for Treatment How to access health informa tion online Indication:Vitamin D deficiency Start:22-Nov-2014 Instruction Type:Patient Education How to access health informa tion online - Detail Indication:Vitamin D deficiency Start:22-Nov-2014 Instruction Type:Patient Education Patient Instructions Indication:Vitamin D deficiency Start:22-Nov-2014 Instruction Type:Provider Instructions for Treatment Patient Instructions Indication:Back pain Start:22-Nov-2014 Instruction Type:Provider Instructions for Treatment [facility]; [facility] Work Phone: Instructions* Name Dates Details Patient Instructions Indication:Type II diabetes mellitus, well controlled Start:20-May-2021 Instruction Type:Provider Instructions for Treatment How to Access Health Informa tion Online using Patient Portal and [employer] Apps Indication:Type II diabetes mellitus, well controlled Start:20-May-2021 Instruction Type:Patient Education Patient Instructions Indication:Type II diabetes mellitus, well controlled Start:08-Feb-2021 Instruction Type:Provider Instructions for Treatment How to Access Health Informa tion Online using Patient Portal and [employer] Apps Indication:Type II diabetes mellitus, well controlled Start:08-Feb-2021 Instruction Type:Patient Education How to Access Health Informa tion Online using Patient Portal and [employer] Apps Indication:Non-smoker Start:30-Nov-2020 Instruction Type:Patient Education Patient Instructions Indication:Non-smoker Start:30-Nov-2020 Instruction Type:Provider Instructions for Treatment How to access health informa tion online Indication:Non-smoker Start:20-Feb-2020 Instruction Type:Patient Education How to access health informa tion online - Detail Indication:Non-smoker Start:20-Feb-2020 Instruction Type:Patient Education Patient Instructions Indication:Non-smoker Start:20-Feb-2020 Instruction Type:Provider Instructions for Treatment How to access health informa tion online Indication:Insulin resistance Start:14-Oct-2018 Instruction Type:Patient Education How to access health informa tion online - Detail Indication:Insulin resistance Start:14-Oct-2018 Instruction Type:Patient Education Patient Instructions Indication:Insulin resistance Start:14-Oct-2018 Instruction Type:Provider Instructions for Treatment How to access health informa tion online Indication:Non-smoker Start:20-Jan-2018 Instruction Type:Patient Education How to access health informa tion online - Detail Indication:Non-smoker Start:20-Jan-2018 Instruction Type:Patient Education Patient Instructions Indication:Non-smoker Start:20-Jan-2018 Instruction Type:Provider Instructions for Treatment How to access health informa tion online Indication:Non-smoker Start:12-Nov-2016 Instruction Type:Patient Education How to access health informa tion online - Detail Indication:Non-smoker Start:12-Nov-2016 Instruction Type:Patient Education Patient Instructions Indication:Non-smoker Start:12-Nov-2016 Instruction Type:Provider Instructions for Treatment Patient Instructions Indication:Vitamin D deficiency Start:05-Oct-2015 Instruction Type:Provider Instructions for Treatment How to access health informa tion online Indication:Vitamin D deficiency Start:22-Nov-2014 Instruction Type:Patient Education How to access health informa tion online - Detail Indication:Vitamin D deficiency Start:22-Nov-2014 Instruction Type:Patient Education Patient Instructions Indication:Vitamin D deficiency Start:22-Nov-2014 Instruction Type:Provider Instructions for Treatment Patient Instructions Indication:Back pain Start:22-Nov-2014 Instruction Type:Provider Instructions for Treatment [facility]; [facility] Work Phone: Instructions* Name Dates Details Patient Instructions Indication:Type II diabetes mellitus, well controlled Start:20-May-2021 Instruction Type:Provider Instructions for Treatment How to Access Health Informa tion Online using Patient Portal and [employer] Apps Indication:Type II diabetes mellitus, well controlled Start:20-May-2021 Instruction Type:Patient Education Patient Instructions Indication:Type II diabetes mellitus, well controlled Start:08-Feb-2021 Instruction Type:Provider Instructions for Treatment How to Access Health Informa tion Online using Patient Portal and [employer] Apps Indication:Type II diabetes mellitus, well controlled Start:08-Feb-2021 Instruction Type:Patient Education How to Access Health Informa tion Online using Patient Portal and [employer] Apps Indication:Non-smoker Start:30-Nov-2020 Instruction Type:Patient Education Patient Instructions Indication:Non-smoker Start:30-Nov-2020 Instruction Type:Provider Instructions for Treatment How to access health informa tion online Indication:Non-smoker Start:20-Feb-2020 Instruction Type:Patient Education How to access health informa tion online - Detail Indication:Non-smoker Start:20-Feb-2020 Instruction Type:Patient Education Patient Instructions Indication:Non-smoker Start:20-Feb-2020 Instruction Type:Provider Instructions for Treatment How to access health informa tion online Indication:Insulin resistance Start:14-Oct-2018 Instruction Type:Patient Education How to access health informa tion online - Detail Indication:Insulin resistance Start:14-Oct-2018 Instruction Type:Patient Education Patient Instructions Indication:Insulin resistance Start:14-Oct-2018 Instruction Type:Provider Instructions for Treatment How to access health informa tion online Indication:Non-smoker Start:20-Jan-2018 Instruction Type:Patient Education How to access health informa tion online - Detail Indication:Non-smoker Start:20-Jan-2018 Instruction Type:Patient Education Patient Instructions Indication:Non-smoker Start:20-Jan-2018 Instruction Type:Provider Instructions for Treatment How to access health informa tion online Indication:Non-smoker Start:12-Nov-2016 Instruction Type:Patient Education How to access health informa tion online - Detail Indication:Non-smoker Start:12-Nov-2016 Instruction Type:Patient Education Patient Instructions Indication:Non-smoker Start:12-Nov-2016 Instruction Type:Provider Instructions for Treatment Patient Instructions Indication:Vitamin D deficiency Start:05-Oct-2015 Instruction Type:Provider Instructions for Treatment How to access health informa tion online Indication:Vitamin D deficiency Start:22-Nov-2014 Instruction Type:Patient Education How to access health informa tion online - Detail Indication:Vitamin D deficiency Start:22-Nov-2014 Instruction Type:Patient Education Patient Instructions Indication:Vitamin D deficiency Start:22-Nov-2014 Instruction Type:Provider Instructions for Treatment Patient Instructions Indication:Back pain Start:22-Nov-2014 Instruction Type:Provider Instructions for Treatment [facility]; [facility] Work Phone: Instructions* Name Dates Details Patient Instructions Indication:Type II diabetes mellitus, well controlled Start:20-May-2021 Instruction Type:Provider Instructions for Treatment How to Access Health Informa tion Online using Patient Portal and [employer] Apps Indication:Type II diabetes mellitus, well controlled Start:20-May-2021 Instruction Type:Patient Education Patient Instructions Indication:Type II diabetes mellitus, well controlled Start:08-Feb-2021 Instruction Type:Provider Instructions for Treatment How to Access Health Informa tion Online using Patient Portal and [employer] Apps Indication:Type II diabetes mellitus, well controlled Start:08-Feb-2021 Instruction Type:Patient Education How to Access Health Informa tion Online using Patient Portal and [employer] Apps Indication:Non-smoker Start:30-Nov-2020 Instruction Type:Patient Education Patient Instructions Indication:Non-smoker Start:30-Nov-2020 Instruction Type:Provider Instructions for Treatment How to access health informa tion online Indication:Non-smoker Start:20-Feb-2020 Instruction Type:Patient Education How to access health informa tion online - Detail Indication:Non-smoker Start:20-Feb-2020 Instruction Type:Patient Education Patient Instructions Indication:Non-smoker Start:20-Feb-2020 Instruction Type:Provider Instructions for Treatment How to access health informa tion online Indication:Insulin resistance Start:14-Oct-2018 Instruction Type:Patient Education How to access health informa tion online - Detail Indication:Insulin resistance Start:14-Oct-2018 Instruction Type:Patient Education Patient Instructions Indication:Insulin resistance Start:14-Oct-2018 Instruction Type:Provider Instructions for Treatment How to access health informa tion online Indication:Non-smoker Start:20-Jan-2018 Instruction Type:Patient Education How to access health informa tion online - Detail Indication:Non-smoker Start:20-Jan-2018 Instruction Type:Patient Education Patient Instructions Indication:Non-smoker Start:20-Jan-2018 Instruction Type:Provider Instructions for Treatment How to access health informa tion online Indication:Non-smoker Start:12-Nov-2016 Instruction Type:Patient Education How to access health informa tion online - Detail Indication:Non-smoker Start:12-Nov-2016 Instruction Type:Patient Education Patient Instructions Indication:Non-smoker Start:12-Nov-2016 Instruction Type:Provider Instructions for Treatment Patient Instructions Indication:Vitamin D deficiency Start:05-Oct-2015 Instruction Type:Provider Instructions for Treatment How to access health informa tion online Indication:Vitamin D deficiency Start:22-Nov-2014 Instruction Type:Patient Education How to access health informa tion online - Detail Indication:Vitamin D deficiency Start:22-Nov-2014 Instruction Type:Patient Education Patient Instructions Indication:Vitamin D deficiency Start:22-Nov-2014 Instruction Type:Provider Instructions for Treatment Patient Instructions Indication:Back pain Start:22-Nov-2014 Instruction Type:Provider Instructions for Treatment [facility]; [facility] Work Phone: Instructions* Name Dates Details Patient Instructions Indication:Type II diabetes mellitus, well controlled Start:20-May-2021 Instruction Type:Provider Instructions for Treatment How to Access Health Informa tion Online using Patient Portal and [employer] Apps Indication:Type II diabetes mellitus, well controlled Start:20-May-2021 Instruction Type:Patient Education Patient Instructions Indication:Type II diabetes mellitus, well controlled Start:08-Feb-2021 Instruction Type:Provider Instructions for Treatment How to Access Health Informa tion Online using Patient Portal and [employer] Apps Indication:Type II diabetes mellitus, well controlled Start:08-Feb-2021 Instruction Type:Patient Education How to Access Health Informa tion Online using Patient Portal and [employer] Apps Indication:Non-smoker Start:30-Nov-2020 Instruction Type:Patient Education Patient Instructions Indication:Non-smoker Start:30-Nov-2020 Instruction Type:Provider Instructions for Treatment How to access health informa tion online Indication:Non-smoker Start:20-Feb-2020 Instruction Type:Patient Education How to access health informa tion online - Detail Indication:Non-smoker Start:20-Feb-2020 Instruction Type:Patient Education Patient Instructions Indication:Non-smoker Start:20-Feb-2020 Instruction Type:Provider Instructions for Treatment How to access health informa tion online Indication:Insulin resistance Start:14-Oct-2018 Instruction Type:Patient Education How to access health informa tion online - Detail Indication:Insulin resistance Start:14-Oct-2018 Instruction Type:Patient Education Patient Instructions Indication:Insulin resistance Start:14-Oct-2018 Instruction Type:Provider Instructions for Treatment How to access health informa tion online Indication:Non-smoker Start:20-Jan-2018 Instruction Type:Patient Education How to access health informa tion online - Detail Indication:Non-smoker Start:20-Jan-2018 Instruction Type:Patient Education Patient Instructions Indication:Non-smoker Start:20-Jan-2018 Instruction Type:Provider Instructions for Treatment How to access health informa tion online Indication:Non-smoker Start:12-Nov-2016 Instruction Type:Patient Education How to access health informa tion online - Detail Indication:Non-smoker Start:12-Nov-2016 Instruction Type:Patient Education Patient Instructions Indication:Non-smoker Start:12-Nov-2016 Instruction Type:Provider Instructions for Treatment Patient Instructions Indication:Vitamin D deficiency Start:05-Oct-2015 Instruction Type:Provider Instructions for Treatment How to access health informa tion online Indication:Vitamin D deficiency Start:22-Nov-2014 Instruction Type:Patient Education How to access health informa tion online - Detail Indication:Vitamin D deficiency Start:22-Nov-2014 Instruction Type:Patient Education Patient Instructions Indication:Vitamin D deficiency Start:22-Nov-2014 Instruction Type:Provider Instructions for Treatment Patient Instructions Indication:Back pain Start:22-Nov-2014 Instruction Type:Provider Instructions for Treatment [facility]; [facility] Work Phone: Instructions* Name Dates Details Patient Instructions Indication:Type II diabetes mellitus, well controlled Start:20-May-2021 Instruction Type:Provider Instructions for Treatment How to Access Health Informa tion Online using Patient Portal and [employer] Apps Indication:Type II diabetes mellitus, well controlled Start:20-May-2021 Instruction Type:Patient Education Patient Instructions Indication:Type II diabetes mellitus, well controlled Start:08-Feb-2021 Instruction Type:Provider Instructions for Treatment How to Access Health Informa tion Online using Patient Portal and [employer] Apps Indication:Type II diabetes mellitus, well controlled Start:08-Feb-2021 Instruction Type:Patient Education How to Access Health Informa tion Online using Patient Portal and [employer] Apps Indication:Non-smoker Start:30-Nov-2020 Instruction Type:Patient Education Patient Instructions Indication:Non-smoker Start:30-Nov-2020 Instruction Type:Provider Instructions for Treatment How to access health informa tion online Indication:Non-smoker Start:20-Feb-2020 Instruction Type:Patient Education How to access health informa tion online - Detail Indication:Non-smoker Start:20-Feb-2020 Instruction Type:Patient Education Patient Instructions Indication:Non-smoker Start:20-Feb-2020 Instruction Type:Provider Instructions for Treatment How to access health informa tion online Indication:Insulin resistance Start:14-Oct-2018 Instruction Type:Patient Education How to access health informa tion online - Detail Indication:Insulin resistance Start:14-Oct-2018 Instruction Type:Patient Education Patient Instructions Indication:Insulin resistance Start:14-Oct-2018 Instruction Type:Provider Instructions for Treatment How to access health informa tion online Indication:Non-smoker Start:20-Jan-2018 Instruction Type:Patient Education How to access health informa tion online - Detail Indication:Non-smoker Start:20-Jan-2018 Instruction Type:Patient Education Patient Instructions Indication:Non-smoker Start:20-Jan-2018 Instruction Type:Provider Instructions for Treatment How to access health informa tion online Indication:Non-smoker Start:12-Nov-2016 Instruction Type:Patient Education How to access health informa tion online - Detail Indication:Non-smoker Start:12-Nov-2016 Instruction Type:Patient Education Patient Instructions Indication:Non-smoker Start:12-Nov-2016 Instruction Type:Provider Instructions for Treatment Patient Instructions Indication:Vitamin D deficiency Start:05-Oct-2015 Instruction Type:Provider Instructions for Treatment How to access health informa tion online Indication:Vitamin D deficiency Start:22-Nov-2014 Instruction Type:Patient Education How to access health informa tion online - Detail Indication:Vitamin D deficiency Start:22-Nov-2014 Instruction Type:Patient Education Patient Instructions Indication:Vitamin D deficiency Start:22-Nov-2014 Instruction Type:Provider Instructions for Treatment Patient Instructions Indication:Back pain Start:22-Nov-2014 Instruction Type:Provider Instructions for Treatment [facility]; [facility] Work Phone: Instructions* Name Dates Details Patient Instructions Indication:Type II diabetes mellitus, well controlled Start:20-May-2021 Instruction Type:Provider Instructions for Treatment How to Access Health Informa tion Online using Patient Portal and [employer] Apps Indication:Type II diabetes mellitus, well controlled Start:20-May-2021 Instruction Type:Patient Education Patient Instructions Indication:Type II diabetes mellitus, well controlled Start:08-Feb-2021 Instruction Type:Provider Instructions for Treatment How to Access Health Informa tion Online using Patient Portal and [employer] Apps Indication:Type II diabetes mellitus, well controlled Start:08-Feb-2021 Instruction Type:Patient Education How to Access Health Informa tion Online using Patient Portal and [employer] Apps Indication:Non-smoker Start:30-Nov-2020 Instruction Type:Patient Education Patient Instructions Indication:Non-smoker Start:30-Nov-2020 Instruction Type:Provider Instructions for Treatment How to access health informa tion online Indication:Non-smoker Start:20-Feb-2020 Instruction Type:Patient Education How to access health informa tion online - Detail Indication:Non-smoker Start:20-Feb-2020 Instruction Type:Patient Education Patient Instructions Indication:Non-smoker Start:20-Feb-2020 Instruction Type:Provider Instructions for Treatment How to access health informa tion online Indication:Insulin resistance Start:14-Oct-2018 Instruction Type:Patient Education How to access health informa tion online - Detail Indication:Insulin resistance Start:14-Oct-2018 Instruction Type:Patient Education Patient Instructions Indication:Insulin resistance Start:14-Oct-2018 Instruction Type:Provider Instructions for Treatment How to access health informa tion online Indication:Non-smoker Start:20-Jan-2018 Instruction Type:Patient Education How to access health informa tion online - Detail Indication:Non-smoker Start:20-Jan-2018 Instruction Type:Patient Education Patient Instructions Indication:Non-smoker Start:20-Jan-2018 Instruction Type:Provider Instructions for Treatment How to access health informa tion online Indication:Non-smoker Start:12-Nov-2016 Instruction Type:Patient Education How to access health informa tion online - Detail Indication:Non-smoker Start:12-Nov-2016 Instruction Type:Patient Education Patient Instructions Indication:Non-smoker Start:12-Nov-2016 Instruction Type:Provider Instructions for Treatment Patient Instructions Indication:Vitamin D deficiency Start:05-Oct-2015 Instruction Type:Provider Instructions for Treatment How to access health informa tion online Indication:Vitamin D deficiency Start:22-Nov-2014 Instruction Type:Patient Education How to access health informa tion online - Detail Indication:Vitamin D deficiency Start:22-Nov-2014 Instruction Type:Patient Education Patient Instructions Indication:Vitamin D deficiency Start:22-Nov-2014 Instruction Type:Provider Instructions for Treatment Patient Instructions Indication:Back pain Start:22-Nov-2014 Instruction Type:Provider Instructions for Treatment [facility]; [facility] Work Phone: Instructions* Name Dates Details Patient Instructions Indication:Type II diabetes mellitus, well controlled Start:20-May-2021 Instruction Type:Provider Instructions for Treatment How to Access Health Informa tion Online using Patient Portal and [employer] Apps Indication:Type II diabetes mellitus, well controlled Start:20-May-2021 Instruction Type:Patient Education Patient Instructions Indication:Type II diabetes mellitus, well controlled Start:08-Feb-2021 Instruction Type:Provider Instructions for Treatment How to Access Health Informa tion Online using Patient Portal and [employer] Apps Indication:Type II diabetes mellitus, well controlled Start:08-Feb-2021 Instruction Type:Patient Education How to Access Health Informa tion Online using Patient Portal and [employer] Apps Indication:Non-smoker Start:30-Nov-2020 Instruction Type:Patient Education Patient Instructions Indication:Non-smoker Start:30-Nov-2020 Instruction Type:Provider Instructions for Treatment How to access health informa tion online Indication:Non-smoker Start:20-Feb-2020 Instruction Type:Patient Education How to access health informa tion online - Detail Indication:Non-smoker Start:20-Feb-2020 Instruction Type:Patient Education Patient Instructions Indication:Non-smoker Start:20-Feb-2020 Instruction Type:Provider Instructions for Treatment How to access health informa tion online Indication:Insulin resistance Start:14-Oct-2018 Instruction Type:Patient Education How to access health informa tion online - Detail Indication:Insulin resistance Start:14-Oct-2018 Instruction Type:Patient Education Patient Instructions Indication:Insulin resistance Start:14-Oct-2018 Instruction Type:Provider Instructions for Treatment How to access health informa tion online Indication:Non-smoker Start:20-Jan-2018 Instruction Type:Patient Education How to access health informa tion online - Detail Indication:Non-smoker Start:20-Jan-2018 Instruction Type:Patient Education Patient Instructions Indication:Non-smoker Start:20-Jan-2018 Instruction Type:Provider Instructions for Treatment How to access health informa tion online Indication:Non-smoker Start:12-Nov-2016 Instruction Type:Patient Education How to access health informa tion online - Detail Indication:Non-smoker Start:12-Nov-2016 Instruction Type:Patient Education Patient Instructions Indication:Non-smoker Start:12-Nov-2016 Instruction Type:Provider Instructions for Treatment Patient Instructions Indication:Vitamin D deficiency Start:05-Oct-2015 Instruction Type:Provider Instructions for Treatment How to access health informa tion online Indication:Vitamin D deficiency Start:22-Nov-2014 Instruction Type:Patient Education How to access health informa tion online - Detail Indication:Vitamin D deficiency Start:22-Nov-2014 Instruction Type:Patient Education Patient Instructions Indication:Vitamin D deficiency Start:22-Nov-2014 Instruction Type:Provider Instructions for Treatment Patient Instructions Indication:Back pain Start:22-Nov-2014 Instruction Type:Provider Instructions for Treatment [facility]; [facility] Work Phone: Instructions* Name Dates Details Patient Instructions Indication:Type II diabetes mellitus, well controlled Start:20-May-2021 Instruction Type:Provider Instructions for Treatment How to Access Health Informa tion Online using Patient Portal and [employer] Apps Indication:Type II diabetes mellitus, well controlled Start:20-May-2021 Instruction Type:Patient Education Patient Instructions Indication:Type II diabetes mellitus, well controlled Start:08-Feb-2021 Instruction Type:Provider Instructions for Treatment How to Access Health Informa tion Online using Patient Portal and [employer] Apps Indication:Type II diabetes mellitus, well controlled Start:08-Feb-2021 Instruction Type:Patient Education How to Access Health Informa tion Online using Patient Portal and [employer] Apps Indication:Non-smoker Start:30-Nov-2020 Instruction Type:Patient Education Patient Instructions Indication:Non-smoker Start:30-Nov-2020 Instruction Type:Provider Instructions for Treatment How to access health informa tion online Indication:Non-smoker Start:20-Feb-2020 Instruction Type:Patient Education How to access health informa tion online - Detail Indication:Non-smoker Start:20-Feb-2020 Instruction Type:Patient Education Patient Instructions Indication:Non-smoker Start:20-Feb-2020 Instruction Type:Provider Instructions for Treatment How to access health informa tion online Indication:Insulin resistance Start:14-Oct-2018 Instruction Type:Patient Education How to access health informa tion online - Detail Indication:Insulin resistance Start:14-Oct-2018 Instruction Type:Patient Education Patient Instructions Indication:Insulin resistance Start:14-Oct-2018 Instruction Type:Provider Instructions for Treatment How to access health informa tion online Indication:Non-smoker Start:20-Jan-2018 Instruction Type:Patient Education How to access health informa tion online - Detail Indication:Non-smoker Start:20-Jan-2018 Instruction Type:Patient Education Patient Instructions Indication:Non-smoker Start:20-Jan-2018 Instruction Type:Provider Instructions for Treatment How to access health informa tion online Indication:Non-smoker Start:12-Nov-2016 Instruction Type:Patient Education How to access health informa tion online - Detail Indication:Non-smoker Start:12-Nov-2016 Instruction Type:Patient Education Patient Instructions Indication:Non-smoker Start:12-Nov-2016 Instruction Type:Provider Instructions for Treatment Patient Instructions Indication:Vitamin D deficiency Start:05-Oct-2015 Instruction Type:Provider Instructions for Treatment How to access health informa tion online Indication:Vitamin D deficiency Start:22-Nov-2014 Instruction Type:Patient Education How to access health informa tion online - Detail Indication:Vitamin D deficiency Start:22-Nov-2014 Instruction Type:Patient Education Patient Instructions Indication:Vitamin D deficiency Start:22-Nov-2014 Instruction Type:Provider Instructions for Treatment Patient Instructions Indication:Back pain Start:22-Nov-2014 Instruction Type:Provider Instructions for Treatment [facility]; [facility] Work Phone: Instructions* Name Dates Details Patient Instructions Indication:Non-smoker Start:29-Jan-2022 Instruction Type:Provider Instructions for Treatment How to Access Health Informa tion Online using Patient Portal and [employer] Apps Indication:Non-smoker Start:29-Jan-2022 Instruction Type:Patient Education Patient Instructions Indication:BMI 40.0-44.9, adult Start:23-Jan-2022 Instruction Type:Provider Instructions for Treatment How to Access Health Informa tion Online using Patient Portal and [employer] Apps Indication:BMI 40.0-44.9, adult Start:23-Jan-2022 Instruction Type:Patient Education Patient Instructions Indication:Type II diabetes mellitus, well controlled Start:20-May-2021 Instruction Type:Provider Instructions for Treatment How to Access Health Informa tion Online using Patient Portal and [employer] Apps Indication:Type II diabetes mellitus, well controlled Start:20-May-2021 Instruction Type:Patient Education Patient Instructions Indication:Type II diabetes mellitus, well controlled Start:08-Feb-2021 Instruction Type:Provider Instructions for Treatment How to Access Health Informa tion Online using Patient Portal and [employer] Apps Indication:Type II diabetes mellitus, well controlled Start:08-Feb-2021 Instruction Type:Patient Education How to Access Health Informa tion Online using Patient Portal and [employer] Apps Indication:Non-smoker Start:30-Nov-2020 Instruction Type:Patient Education Patient Instructions Indication:Non-smoker Start:30-Nov-2020 Instruction Type:Provider Instructions for Treatment How to access health informa tion online Indication:Non-smoker Start:20-Feb-2020 Instruction Type:Patient Education How to access health informa tion online - Detail Indication:Non-smoker Start:20-Feb-2020 Instruction Type:Patient Education Patient Instructions Indication:Non-smoker Start:20-Feb-2020 Instruction Type:Provider Instructions for Treatment How to access health informa tion online Indication:Insulin resistance Start:14-Oct-2018 Instruction Type:Patient Education How to access health informa tion online - Detail Indication:Insulin resistance Start:14-Oct-2018 Instruction Type:Patient Education Patient Instructions Indication:Insulin resistance Start:14-Oct-2018 Instruction Type:Provider Instructions for Treatment How to access health informa tion online Indication:Non-smoker Start:20-Jan-2018 Instruction Type:Patient Education How to access health informa tion online - Detail Indication:Non-smoker Start:20-Jan-2018 Instruction Type:Patient Education Patient Instructions Indication:Non-smoker Start:20-Jan-2018 Instruction Type:Provider Instructions for Treatment How to access health informa tion online Indication:Non-smoker Start:12-Nov-2016 Instruction Type:Patient Education How to access health informa tion online - Detail Indication:Non-smoker Start:12-Nov-2016 Instruction Type:Patient Education Patient Instructions Indication:Non-smoker Start:12-Nov-2016 Instruction Type:Provider Instructions for Treatment Patient Instructions Indication:Vitamin D deficiency Start:05-Oct-2015 Instruction Type:Provider Instructions for Treatment How to access health informa tion online Indication:Vitamin D deficiency Start:22-Nov-2014 Instruction Type:Patient Education How to access health informa tion online - Detail Indication:Vitamin D deficiency Start:22-Nov-2014 Instruction Type:Patient Education Patient Instructions Indication:Vitamin D deficiency Start:22-Nov-2014 Instruction Type:Provider Instructions for Treatment Patient Instructions Indication:Back pain Start:22-Nov-2014 Instruction Type:Provider Instructions for Treatment [facility] Work Phone: Instructions* Name Dates Details Patient Instructions Indication:Non-smoker Start:29-Jan-2022 Instruction Type:Provider Instructions for Treatment How to Access Health Informa tion Online using Patient Portal and [employer] Apps Indication:Non-smoker Start:29-Jan-2022 Instruction Type:Patient Education Patient Instructions Indication:BMI 40.0-44.9, adult Start:23-Jan-2022 Instruction Type:Provider Instructions for Treatment How to Access Health Informa tion Online using Patient Portal and [employer] Apps Indication:BMI 40.0-44.9, adult Start:23-Jan-2022 Instruction Type:Patient Education Patient Instructions Indication:Type II diabetes mellitus, well controlled Start:20-May-2021 Instruction Type:Provider Instructions for Treatment How to Access Health Informa tion Online using Patient Portal and [employer] Apps Indication:Type II diabetes mellitus, well controlled Start:20-May-2021 Instruction Type:Patient Education Patient Instructions Indication:Type II diabetes mellitus, well controlled Start:08-Feb-2021 Instruction Type:Provider Instructions for Treatment How to Access Health Informa tion Online using Patient Portal and [employer] Apps Indication:Type II diabetes mellitus, well controlled Start:08-Feb-2021 Instruction Type:Patient Education How to Access Health Informa tion Online using Patient Portal and [employer] Apps Indication:Non-smoker Start:30-Nov-2020 Instruction Type:Patient Education Patient Instructions Indication:Non-smoker Start:30-Nov-2020 Instruction Type:Provider Instructions for Treatment How to access health informa tion online Indication:Non-smoker Start:20-Feb-2020 Instruction Type:Patient Education How to access health informa tion online - Detail Indication:Non-smoker Start:20-Feb-2020 Instruction Type:Patient Education Patient Instructions Indication:Non-smoker Start:20-Feb-2020 Instruction Type:Provider Instructions for Treatment How to access health informa tion online Indication:Insulin resistance Start:14-Oct-2018 Instruction Type:Patient Education How to access health informa tion online - Detail Indication:Insulin resistance Start:14-Oct-2018 Instruction Type:Patient Education Patient Instructions Indication:Insulin resistance Start:14-Oct-2018 Instruction Type:Provider Instructions for Treatment How to access health informa tion online Indication:Non-smoker Start:20-Jan-2018 Instruction Type:Patient Education How to access health informa tion online - Detail Indication:Non-smoker Start:20-Jan-2018 Instruction Type:Patient Education Patient Instructions Indication:Non-smoker Start:20-Jan-2018 Instruction Type:Provider Instructions for Treatment How to access health informa tion online Indication:Non-smoker Start:12-Nov-2016 Instruction Type:Patient Education How to access health informa tion online - Detail Indication:Non-smoker Start:12-Nov-2016 Instruction Type:Patient Education Patient Instructions Indication:Non-smoker Start:12-Nov-2016 Instruction Type:Provider Instructions for Treatment Patient Instructions Indication:Vitamin D deficiency Start:05-Oct-2015 Instruction Type:Provider Instructions for Treatment How to access health informa tion online Indication:Vitamin D deficiency Start:22-Nov-2014 Instruction Type:Patient Education How to access health informa tion online - Detail Indication:Vitamin D deficiency Start:22-Nov-2014 Instruction Type:Patient Education Patient Instructions Indication:Vitamin D deficiency Start:22-Nov-2014 Instruction Type:Provider Instructions for Treatment Patient Instructions Indication:Back pain Start:22-Nov-2014 Instruction Type:Provider Instructions for Treatment [facility] Work Phone: Instructions* Name Dates Details Patient Instructions Indication:Non-smoker Start:15-Oct-2022 Instruction Type:Provider Instructions for Treatment How to Access Health Informa tion Online using Patient Portal and [employer] Apps Indication:Non-smoker Start:15-Oct-2022 Instruction Type:Patient Education Patient Instructions Indication:Non-smoker Start:29-Jan-2022 Instruction Type:Provider Instructions for Treatment How to Access Health Informa tion Online using Patient Portal and [employer] Apps Indication:Non-smoker Start:29-Jan-2022 Instruction Type:Patient Education Patient Instructions Indication:BMI 40.0-44.9, adult Start:23-Jan-2022 Instruction Type:Provider Instructions for Treatment How to Access Health Informa tion Online using Patient Portal and [employer] Apps Indication:BMI 40.0-44.9, adult Start:23-Jan-2022 Instruction Type:Patient Education Patient Instructions Indication:Type II diabetes mellitus, well controlled Start:20-May-2021 Instruction Type:Provider Instructions for Treatment How to Access Health Informa tion Online using Patient Portal and [employer] Apps Indication:Type II diabetes mellitus, well controlled Start:20-May-2021 Instruction Type:Patient Education Patient Instructions Indication:Type II diabetes mellitus, well controlled Start:08-Feb-2021 Instruction Type:Provider Instructions for Treatment How to Access Health Informa tion Online using Patient Portal and [employer] Apps Indication:Type II diabetes mellitus, well controlled Start:08-Feb-2021 Instruction Type:Patient Education How to Access Health Informa tion Online using Patient Portal and [employer] Apps Indication:Non-smoker Start:30-Nov-2020 Instruction Type:Patient Education Patient Instructions Indication:Non-smoker Start:30-Nov-2020 Instruction Type:Provider Instructions for Treatment How to access health informa tion online Indication:Non-smoker Start:20-Feb-2020 Instruction Type:Patient Education How to access health informa tion online - Detail Indication:Non-smoker Start:20-Feb-2020 Instruction Type:Patient Education Patient Instructions Indication:Non-smoker Start:20-Feb-2020 Instruction Type:Provider Instructions for Treatment How to access health informa tion online Indication:Insulin resistance Start:14-Oct-2018 Instruction Type:Patient Education How to access health informa tion online - Detail Indication:Insulin resistance Start:14-Oct-2018 Instruction Type:Patient Education Patient Instructions Indication:Insulin resistance Start:14-Oct-2018 Instruction Type:Provider Instructions for Treatment How to access health informa tion online Indication:Non-smoker Start:20-Jan-2018 Instruction Type:Patient Education How to access health informa tion online - Detail Indication:Non-smoker Start:20-Jan-2018 Instruction Type:Patient Education Patient Instructions Indication:Non-smoker Start:20-Jan-2018 Instruction Type:Provider Instructions for Treatment How to access health informa tion online Indication:Non-smoker Start:12-Nov-2016 Instruction Type:Patient Education How to access health informa tion online - Detail Indication:Non-smoker Start:12-Nov-2016 Instruction Type:Patient Education Patient Instructions Indication:Non-smoker Start:12-Nov-2016 Instruction Type:Provider Instructions for Treatment Patient Instructions Indication:Vitamin D deficiency Start:05-Oct-2015 Instruction Type:Provider Instructions for Treatment How to access health informa tion online Indication:Vitamin D deficiency Start:22-Nov-2014 Instruction Type:Patient Education How to access health informa tion online - Detail Indication:Vitamin D deficiency Start:22-Nov-2014 Instruction Type:Patient Education Patient Instructions Indication:Vitamin D deficiency Start:22-Nov-2014 Instruction Type:Provider Instructions for Treatment Patient Instructions Indication:Back pain Start:22-Nov-2014 Instruction Type:Provider Instructions for Treatment [facility] Work Phone: Instructions* Name Dates Details Patient Instructions Indication:Non-smoker Start:15-Oct-2022 Instruction Type:Provider Instructions for Treatment How to Access Health Informa tion Online using Patient Portal and [employer] Apps Indication:Non-smoker Start:15-Oct-2022 Instruction Type:Patient Education Patient Instructions Indication:Non-smoker Start:29-Jan-2022 Instruction Type:Provider Instructions for Treatment How to Access Health Informa tion Online using Patient Portal and [employer] Apps Indication:Non-smoker Start:29-Jan-2022 Instruction Type:Patient Education Patient Instructions Indication:BMI 40.0-44.9, adult Start:23-Jan-2022 Instruction Type:Provider Instructions for Treatment How to Access Health Informa tion Online using Patient Portal and [employer] Apps Indication:BMI 40.0-44.9, adult Start:23-Jan-2022 Instruction Type:Patient Education Patient Instructions Indication:Type II diabetes mellitus, well controlled Start:20-May-2021 Instruction Type:Provider Instructions for Treatment How to Access Health Informa tion Online using Patient Portal and [employer] Apps Indication:Type II diabetes mellitus, well controlled Start:20-May-2021 Instruction Type:Patient Education Patient Instructions Indication:Type II diabetes mellitus, well controlled Start:08-Feb-2021 Instruction Type:Provider Instructions for Treatment How to Access Health Informa tion Online using Patient Portal and [employer] Apps Indication:Type II diabetes mellitus, well controlled Start:08-Feb-2021 Instruction Type:Patient Education How to Access Health Informa tion Online using Patient Portal and [employer] Apps Indication:Non-smoker Start:30-Nov-2020 Instruction Type:Patient Education Patient Instructions Indication:Non-smoker Start:30-Nov-2020 Instruction Type:Provider Instructions for Treatment How to access health informa tion online Indication:Non-smoker Start:20-Feb-2020 Instruction Type:Patient Education How to access health informa tion online - Detail Indication:Non-smoker Start:20-Feb-2020 Instruction Type:Patient Education Patient Instructions Indication:Non-smoker Start:20-Feb-2020 Instruction Type:Provider Instructions for Treatment How to access health informa tion online Indication:Insulin resistance Start:14-Oct-2018 Instruction Type:Patient Education How to access health informa tion online - Detail Indication:Insulin resistance Start:14-Oct-2018 Instruction Type:Patient Education Patient Instructions Indication:Insulin resistance Start:14-Oct-2018 Instruction Type:Provider Instructions for Treatment How to access health informa tion online Indication:Non-smoker Start:20-Jan-2018 Instruction Type:Patient Education How to access health informa tion online - Detail Indication:Non-smoker Start:20-Jan-2018 Instruction Type:Patient Education Patient Instructions Indication:Non-smoker Start:20-Jan-2018 Instruction Type:Provider Instructions for Treatment How to access health informa tion online Indication:Non-smoker Start:12-Nov-2016 Instruction Type:Patient Education How to access health informa tion online - Detail Indication:Non-smoker Start:12-Nov-2016 Instruction Type:Patient Education Patient Instructions Indication:Non-smoker Start:12-Nov-2016 Instruction Type:Provider Instructions for Treatment Patient Instructions Indication:Vitamin D deficiency Start:05-Oct-2015 Instruction Type:Provider Instructions for Treatment How to access health informa tion online Indication:Vitamin D deficiency Start:22-Nov-2014 Instruction Type:Patient Education How to access health informa tion online - Detail Indication:Vitamin D deficiency Start:22-Nov-2014 Instruction Type:Patient Education Patient Instructions Indication:Vitamin D deficiency Start:22-Nov-2014 Instruction Type:Provider Instructions for Treatment Patient Instructions Indication:Back pain Start:22-Nov-2014 Instruction Type:Provider Instructions for Treatment [facility] Work Phone: Instructions* Name Dates Details Patient Instructions Indication:Non-smoker Start:15-Oct-2022 Instruction Type:Provider Instructions for Treatment How to Access Health Informa tion Online using Patient Portal and [employer] Apps Indication:Non-smoker Start:15-Oct-2022 Instruction Type:Patient Education Patient Instructions Indication:Non-smoker Start:29-Jan-2022 Instruction Type:Provider Instructions for Treatment How to Access Health Informa tion Online using Patient Portal and [employer] Apps Indication:Non-smoker Start:29-Jan-2022 Instruction Type:Patient Education Patient Instructions Indication:BMI 40.0-44.9, adult Start:23-Jan-2022 Instruction Type:Provider Instructions for Treatment How to Access Health Informa tion Online using Patient Portal and [employer] Apps Indication:BMI 40.0-44.9, adult Start:23-Jan-2022 Instruction Type:Patient Education Patient Instructions Indication:Type II diabetes mellitus, well controlled Start:20-May-2021 Instruction Type:Provider Instructions for Treatment How to Access Health Informa tion Online using Patient Portal and [employer] Apps Indication:Type II diabetes mellitus, well controlled Start:20-May-2021 Instruction Type:Patient Education Patient Instructions Indication:Type II diabetes mellitus, well controlled Start:08-Feb-2021 Instruction Type:Provider Instructions for Treatment How to Access Health Informa tion Online using Patient Portal and [employer] Apps Indication:Type II diabetes mellitus, well controlled Start:08-Feb-2021 Instruction Type:Patient Education How to Access Health Informa tion Online using Patient Portal and [employer] Apps Indication:Non-smoker Start:30-Nov-2020 Instruction Type:Patient Education Patient Instructions Indication:Non-smoker Start:30-Nov-2020 Instruction Type:Provider Instructions for Treatment How to access health informa tion online Indication:Non-smoker Start:20-Feb-2020 Instruction Type:Patient Education How to access health informa tion online - Detail Indication:Non-smoker Start:20-Feb-2020 Instruction Type:Patient Education Patient Instructions Indication:Non-smoker Start:20-Feb-2020 Instruction Type:Provider Instructions for Treatment How to access health informa tion online Indication:Insulin resistance Start:14-Oct-2018 Instruction Type:Patient Education How to access health informa tion online - Detail Indication:Insulin resistance Start:14-Oct-2018 Instruction Type:Patient Education Patient Instructions Indication:Insulin resistance Start:14-Oct-2018 Instruction Type:Provider Instructions for Treatment How to access health informa tion online Indication:Non-smoker Start:20-Jan-2018 Instruction Type:Patient Education How to access health informa tion online - Detail Indication:Non-smoker Start:20-Jan-2018 Instruction Type:Patient Education Patient Instructions Indication:Non-smoker Start:20-Jan-2018 Instruction Type:Provider Instructions for Treatment How to access health informa tion online Indication:Non-smoker Start:12-Nov-2016 Instruction Type:Patient Education How to access health informa tion online - Detail Indication:Non-smoker Start:12-Nov-2016 Instruction Type:Patient Education Patient Instructions Indication:Non-smoker Start:12-Nov-2016 Instruction Type:Provider Instructions for Treatment Patient Instructions Indication:Vitamin D deficiency Start:05-Oct-2015 Instruction Type:Provider Instructions for Treatment How to access health informa tion online Indication:Vitamin D deficiency Start:22-Nov-2014 Instruction Type:Patient Education How to access health informa tion online - Detail Indication:Vitamin D deficiency Start:22-Nov-2014 Instruction Type:Patient Education Patient Instructions Indication:Vitamin D deficiency Start:22-Nov-2014 Instruction Type:Provider Instructions for Treatment Patient Instructions Indication:Back pain Start:22-Nov-2014 Instruction Type:Provider Instructions for Treatment [facility] Work Phone: reason for referral (narrative)No reason for referral information [facility] Work [facility]: Family History No Family History Records FoundUnknown Family Member Name Dates Details Asthma Comments:Mother. Status:Active Breast Cancer Comments:Paternal Grandmothe r. Paternal Aunt. Status:Active Fibromylgia Comments:Mother. Status:Active Hypercholesterolemia Comments:Father. Status:Active Hypertension Comments:Mother. Father. Status:Active Kidney Disease Comments:Mother. Status:Active Oral cancer Comments:Maternal Uncle. Status:Active Prostate Cancer Comments:Maternal Uncle. Status:Active Unknown Family Member Name Dates Details Asthma Comments:Mother. Status:Active Breast Cancer Comments:Paternal Grandmothe r. Paternal Aunt. Status:Active Fibromylgia Comments:Mother. Status:Active Hypercholesterolemia Comments:Father. Status:Active Hypertension Comments:Mother. Father. Status:Active Kidney Disease Comments:Mother. Status:Active Oral cancer Comments:Maternal Uncle. Status:Active Prostate Cancer Comments:Maternal Uncle. Status:Active Unknown Family Member Name Dates Details Asthma Comments:Mother. Status:Active Breast Cancer Comments:Paternal Grandmothe r. Paternal Aunt. Status:Active Fibromylgia Comments:Mother. Status:Active Hypercholesterolemia Comments:Father. Status:Active Hypertension Comments:Mother. Father. Status:Active Kidney Disease Comments:Mother. Status:Active Oral cancer Comments:Maternal Uncle. Status:Active Prostate Cancer Comments:Maternal Uncle. Status:Active Unknown Family Member Name Dates Details Asthma Comments:Mother. Status:Active Breast Cancer Comments:Paternal Grandmothe r. Paternal Aunt. Status:Active Fibromylgia Comments:Mother. Status:Active Hypercholesterolemia Comments:Father. Status:Active Hypertension Comments:Mother. Father. Status:Active Kidney Disease Comments:Mother. Status:Active Oral cancer Comments:Maternal Uncle. Status:Active Prostate Cancer Comments:Maternal Uncle. Status:Active Unknown Family Member Name Dates Details Asthma Comments:Mother. Status:Active Breast Cancer Comments:Paternal Grandmothe r. Paternal Aunt. Status:Active Fibromylgia Comments:Mother. Status:Active Hypercholesterolemia Comments:Father. Status:Active Hypertension Comments:Mother. Father. Status:Active Kidney Disease Comments:Mother. Status:Active Oral cancer Comments:Maternal Uncle. Status:Active Prostate Cancer Comments:Maternal Uncle. Status:Active Unknown Family Member Name Dates Details Asthma Comments:Mother. Status:Active Breast Cancer Comments:Paternal Grandmothe r. Paternal Aunt. Status:Active Fibromylgia Comments:Mother. Status:Active Hypercholesterolemia Comments:Father. Status:Active Hypertension Comments:Mother. Father. Status:Active Kidney Disease Comments:Mother. Status:Active Oral cancer Comments:Maternal Uncle. Status:Active Prostate Cancer Comments:Maternal Uncle. Status:Active Unknown Family Member Name Dates Details Asthma Comments:Mother. Status:Active Breast Cancer Comments:Paternal Grandmothe r. Paternal Aunt. Status:Active Fibromylgia Comments:Mother. Status:Active Hypercholesterolemia Comments:Father. Status:Active Hypertension Comments:Mother. Father. Status:Active Kidney Disease Comments:Mother. Status:Active Oral cancer Comments:Maternal Uncle. Status:Active Prostate Cancer Comments:Maternal Uncle. Status:Active Unknown Family Member Name Dates Details Asthma Comments:Mother. Status:Active Breast Cancer Comments:Paternal Grandmothe r. Paternal Aunt. Status:Active Fibromylgia Comments:Mother. Status:Active Hypercholesterolemia Comments:Father. Status:Active Hypertension Comments:Mother. Father. Status:Active Kidney Disease Comments:Mother. Status:Active Oral cancer Comments:Maternal Uncle. Status:Active Prostate Cancer Comments:Maternal Uncle. Status:Active Unknown Family Member Name Dates Details Asthma Comments:Mother. Status:Active Breast Cancer Comments:Paternal Grandmothe r. Paternal Aunt. Status:Active Fibromylgia Comments:Mother. Status:Active Hypercholesterolemia Comments:Father. Status:Active Hypertension Comments:Mother. Father. Status:Active Kidney Disease Comments:Mother. Status:Active Oral cancer Comments:Maternal Uncle. Status:Active Prostate Cancer Comments:Maternal Uncle. Status:Active Unknown Family Member Name Dates Details Asthma Comments:Mother. Status:Active Breast Cancer Comments:Paternal Grandmothe r. Paternal Aunt. Status:Active Fibromylgia Comments:Mother. Status:Active Hypercholesterolemia Comments:Father. Status:Active Hypertension Comments:Mother. Father. Status:Active Kidney Disease Comments:Mother. Status:Active Oral cancer Comments:Maternal Uncle. Status:Active Prostate Cancer Comments:Maternal Uncle. Status:Active Unknown Family Member Name Dates Details Asthma Comments:Mother. Status:Active Breast Cancer Comments:Paternal Grandmothe r. Paternal Aunt. Status:Active Fibromylgia Comments:Mother. Status:Active Hypercholesterolemia Comments:Father. Status:Active Hypertension Comments:Mother. Father. Status:Active Kidney Disease Comments:Mother. Status:Active Oral cancer Comments:Maternal Uncle. Status:Active Prostate Cancer Comments:Maternal Uncle. Status:Active Unknown Family Member Name Dates Details Asthma Comments:Mother. Status:Active Breast Cancer Comments:Paternal Grandmothe r. Paternal Aunt. Status:Active Fibromylgia Comments:Mother. Status:Active Hypercholesterolemia Comments:Father. Status:Active Hypertension Comments:Mother. Father. Status:Active Kidney Disease Comments:Mother. Status:Active Oral cancer Comments:Maternal Uncle. Status:Active Prostate Cancer Comments:Maternal Uncle. Status:Active Unknown Family Member Name Dates Details Asthma Comments:Mother. Status:Active Breast Cancer Comments:Paternal Grandmothe r. Paternal Aunt. Status:Active Fibromylgia Comments:Mother. Status:Active Hypercholesterolemia Comments:Father. Status:Active Hypertension Comments:Mother. Father. Status:Active Kidney Disease Comments:Mother. Status:Active Oral cancer Comments:Maternal Uncle. Status:Active Prostate Cancer Comments:Maternal Uncle. Status:Active Unknown Family Member Name Dates Details Asthma Comments:Mother. Status:Active Breast Cancer Comments:Paternal Grandmothe r. Paternal Aunt. Status:Active Fibromylgia Comments:Mother. Status:Active Hypercholesterolemia Comments:Father. Status:Active Hypertension Comments:Mother. Father. Status:Active Kidney Disease Comments:Mother. Status:Active Oral cancer Comments:Maternal Uncle. Status:Active Prostate Cancer Comments:Maternal Uncle. Status:Active Unknown Family Member Name Dates Details Asthma Comments:Mother. Status:Active Breast Cancer Comments:Paternal Grandmothe r. Paternal Aunt. Status:Active Fibromylgia Comments:Mother. Status:Active Hypercholesterolemia Comments:Father. Status:Active Hypertension Comments:Mother. Father. Status:Active Kidney Disease Comments:Mother. Status:Active Oral cancer Comments:Maternal Uncle. Status:Active Prostate Cancer Comments:Maternal Uncle. Status:Active Unknown Family Member Name Dates Details Asthma Comments:Mother. Status:Active Breast Cancer Comments:Paternal Grandmothe r. Paternal Aunt. Status:Active Fibromylgia Comments:Mother. Status:Active Hypercholesterolemia Comments:Father. Status:Active Hypertension Comments:Mother. Father. Status:Active Kidney Disease Comments:Mother. Status:Active Oral cancer Comments:Maternal Uncle. Status:Active Prostate Cancer Comments:Maternal Uncle. Status:Active Unknown Family Member Name Dates Details Asthma Comments:Mother. Status:Active Breast Cancer Comments:Paternal Grandmothe r. Paternal Aunt. Status:Active Fibromylgia Comments:Mother. Status:Active Hypercholesterolemia Comments:Father. Status:Active Hypertension Comments:Mother. Father. Status:Active Kidney Disease Comments:Mother. Status:Active Oral cancer Comments:Maternal Uncle. Status:Active Prostate Cancer Comments:Maternal Uncle. Status:Active Unknown Family Member Name Dates Details Asthma Comments:Mother. Status:Active Breast Cancer Comments:Paternal Grandmothe r. Paternal Aunt. Status:Active Fibromylgia Comments:Mother. Status:Active Hypercholesterolemia Comments:Father. Status:Active Hypertension Comments:Mother. Father. Status:Active Kidney Disease Comments:Mother. Status:Active Oral cancer Comments:Maternal Uncle. Status:Active Prostate Cancer Comments:Maternal Uncle. Status:Active Unknown Family Member Name Dates Details Asthma Comments:Mother. Status:Active Breast Cancer Comments:Paternal Grandmothe r. Paternal Aunt. Status:Active Fibromylgia Comments:Mother. Status:Active Hypercholesterolemia Comments:Father. Status:Active Hypertension Comments:Mother. Father. Status:Active Kidney Disease Comments:Mother. Status:Active Oral cancer Comments:Maternal Uncle. Status:Active Prostate Cancer Comments:Maternal Uncle. Status:Active Unknown Family Member Name Dates Details Asthma Comments:Mother. Status:Active Breast Cancer Comments:Paternal Grandmothe r. Paternal Aunt. Status:Active Fibromylgia Comments:Mother. Status:Active Hypercholesterolemia Comments:Father. Status:Active Hypertension Comments:Mother. Father. Status:Active Kidney Disease Comments:Mother. Status:Active Oral cancer Comments:Maternal Uncle. Status:Active Prostate Cancer Comments:Maternal Uncle. Status:Active Unknown Family Member Name Dates Details Asthma Comments:Mother. Status:Active Breast Cancer Comments:Paternal Grandmothe r. Paternal Aunt. Status:Active Fibromylgia Comments:Mother. Status:Active Hypercholesterolemia Comments:Father. Status:Active Hypertension Comments:Mother. Father. Status:Active Kidney Disease Comments:Mother. Status:Active Oral cancer Comments:Maternal Uncle. Status:Active Prostate Cancer Comments:Maternal Uncle. Status:Active Relationship Condition Age at Onset Recorded Date/T alana father Hypertension Unknown Cerebrovascular accident (CVA) Unknown High blood cholesterol Unknown mother Hypertension Unknown Disorder of thyroid Unknown Asthma Unknown Unknown Family Member Name Dates Details Asthma Comments:Mother. Status:Active Breast Cancer Comments:Paternal Grandmothe r. Paternal Aunt. Status:Active Fibromylgia Comments:Mother. Status:Active Hypercholesterolemia Comments:Father. Status:Active Hypertension Comments:Mother. Father. Status:Active Kidney Disease Comments:Mother. Status:Active Oral cancer Comments:Maternal Uncle. Status:Active Prostate Cancer Comments:Maternal Uncle. Status:Active Unknown Family Member Name Dates Details Asthma Comments:Mother. Status:Active Breast Cancer Comments:Paternal Grandmothe r. Paternal Aunt. Status:Active Fibromylgia Comments:Mother. Status:Active Hypercholesterolemia Comments:Father. Status:Active Hypertension Comments:Mother. Father. Status:Active Kidney Disease Comments:Mother. Status:Active Oral cancer Comments:Maternal Uncle. Status:Active Prostate Cancer Comments:Maternal Uncle. Status:Active Unknown Family Member Name Dates Details Asthma Comments:Mother. Status:Active Breast Cancer Comments:Paternal Grandmothe r. Paternal Aunt. Status:Active Fibromylgia Comments:Mother. Status:Active Hypercholesterolemia Comments:Father. Status:Active Hypertension Comments:Mother. Father. Status:Active Kidney Disease Comments:Mother. Status:Active Oral cancer Comments:Maternal Uncle. Status:Active Prostate Cancer Comments:Maternal Uncle. Status:Active Unknown Family Member Name Dates Details Asthma Comments:Mother. Status:Active Breast Cancer Comments:Paternal Grandmothe r. Paternal Aunt. Status:Active Fibromylgia Comments:Mother. Status:Active Hypercholesterolemia Comments:Father. Status:Active Hypertension Comments:Mother. Father. Status:Active Kidney Disease Comments:Mother. Status:Active Oral cancer Comments:Maternal Uncle. Status:Active Prostate Cancer Comments:Maternal Uncle. Status:Active Unknown Family Member Name Dates Details Asthma Comments:Mother. Status:Active Breast Cancer Comments:Paternal Grandmothe r. Paternal Aunt. Status:Active Fibromylgia Comments:Mother. Status:Active Hypercholesterolemia Comments:Father. Status:Active Hypertension Comments:Mother. Father. Status:Active Kidney Disease Comments:Mother. Status:Active Oral cancer Comments:Maternal Uncle. Status:Active Prostate Cancer Comments:Maternal Uncle. Status:Active Unknown Family Member Name Dates Details Asthma Comments:Mother. Status:Active Breast Cancer Comments:Paternal Grandmothe r. Paternal Aunt. Status:Active Fibromylgia Comments:Mother. Status:Active Hypercholesterolemia Comments:Father. Status:Active Hypertension Comments:Mother. Father. Status:Active Kidney Disease Comments:Mother. Status:Active Oral cancer Comments:Maternal Uncle. Status:Active Prostate Cancer Comments:Maternal Uncle. Status:Active Unknown Family Member Name Dates Details Asthma Comments:Mother. Status:Active Breast Cancer Comments:Paternal Grandmothe r. Paternal Aunt. Status:Active Fibromylgia Comments:Mother. Status:Active Hypercholesterolemia Comments:Father. Status:Active Hypertension Comments:Mother. Father. Status:Active Kidney Disease Comments:Mother. Status:Active Oral cancer Comments:Maternal Uncle. Status:Active Prostate Cancer Comments:Maternal Uncle. Status:Active Unknown Family Member Name Dates Details Asthma Comments:Mother. Status:Active Breast Cancer Comments:Paternal Grandmothe r. Paternal Aunt. Status:Active Fibromylgia Comments:Mother. Status:Active Hypercholesterolemia Comments:Father. Status:Active Hypertension Comments:Mother. Father. Status:Active Kidney Disease Comments:Mother. Status:Active Oral cancer Comments:Maternal Uncle. Status:Active Prostate Cancer Comments:Maternal Uncle. Status:Active Unknown Family Member Name Dates Details Asthma Comments:Mother. Status:Active Breast Cancer Comments:Paternal Grandmothe r. Paternal Aunt. Status:Active Fibromylgia Comments:Mother. Status:Active Hypercholesterolemia Comments:Father. Status:Active Hypertension Comments:Mother. Father. Status:Active Kidney Disease Comments:Mother. Status:Active Oral cancer Comments:Maternal Uncle. Status:Active Prostate Cancer Comments:Maternal Uncle. Status:Active Instructions Name Dates Details Non-smoker : How to access h ealth information online Indication:Non-smoker Non-smoker : How to access h ealth information online - Detail Indication:Non-smoker Non-smoker : Patient Instruc tions Indication:Non-smoker Vitamin D deficiency : Patie nt Instructions Indication:Vitamin D deficiency Vitamin D deficiency : How t o access health information online Indication:Vitamin D deficiency Vitamin D deficiency : How t o access health information online - Detail Indication:Vitamin D deficiency Back pain : Patient Instruct ions Indication:Back pain Name Dates Details Non-smoker : How to access h ealth information online Indication:Non-smoker Non-smoker : How to access h ealth information online - Detail Indication:Non-smoker Non-smoker : Patient Instruc tions Indication:Non-smoker Vitamin D deficiency : Patie nt Instructions Indication:Vitamin D deficiency Vitamin D deficiency : How t o access health information online Indication:Vitamin D deficiency Vitamin D deficiency : How t o access health information online - Detail Indication:Vitamin D deficiency Back pain : Patient Instruct ions Indication:Back pain Name Dates Details Non-smoker : How to access h ealth information online Indication:Non-smoker Non-smoker : How to access h ealth information online - Detail Indication:Non-smoker Non-smoker : Patient Instruc tions Indication:Non-smoker Vitamin D deficiency : Patie nt Instructions Indication:Vitamin D deficiency Vitamin D deficiency : How t o access health information online Indication:Vitamin D deficiency Vitamin D deficiency : How t o access health information online - Detail Indication:Vitamin D deficiency Back pain : Patient Instruct ions Indication:Back pain Name Dates Details Non-smoker : How to access h ealth information online Indication:Non-smoker Non-smoker : How to access h ealth information online - Detail Indication:Non-smoker Non-smoker : Patient Instruc tions Indication:Non-smoker Vitamin D deficiency : Patie nt Instructions Indication:Vitamin D deficiency Vitamin D deficiency : How t o access health information online Indication:Vitamin D deficiency Vitamin D deficiency : How t o access health information online - Detail Indication:Vitamin D deficiency Back pain : Patient Instruct ions Indication:Back pain Name Dates Details How to access health informa tion online Indication:Insulin resistance Start:14-Oct-2018 Instruction Type:Patient Education How to access health informa tion online - Detail Indication:Insulin resistance Start:14-Oct-2018 Instruction Type:Patient Education Patient Instructions Indication:Insulin resistance Start:14-Oct-2018 Instruction Type:Provider Instructions for Treatment How to access health informa tion online Indication:Non-smoker Start:20-Jan-2018 Instruction Type:Patient Education How to access health informa tion online - Detail Indication:Non-smoker Start:20-Jan-2018 Instruction Type:Patient Education Patient Instructions Indication:Non-smoker Start:20-Jan-2018 Instruction Type:Provider Instructions for Treatment How to access health informa tion online Indication:Non-smoker Start:12-Nov-2016 Instruction Type:Patient Education How to access health informa tion online - Detail Indication:Non-smoker Start:12-Nov-2016 Instruction Type:Patient Education Patient Instructions Indication:Non-smoker Start:12-Nov-2016 Instruction Type:Provider Instructions for Treatment Patient Instructions Indication:Vitamin D deficiency Start:05-Oct-2015 Instruction Type:Provider Instructions for Treatment How to access health informa tion online Indication:Vitamin D deficiency Start:22-Nov-2014 Instruction Type:Patient Education How to access health informa tion online - Detail Indication:Vitamin D deficiency Start:22-Nov-2014 Instruction Type:Patient Education Patient Instructions Indication:Vitamin D deficiency Start:22-Nov-2014 Instruction Type:Provider Instructions for Treatment Patient Instructions Indication:Back pain Start:22-Nov-2014 Instruction Type:Provider Instructions for Treatment Name Dates Details How to access health informa tion online Indication:Insulin resistance Start:14-Oct-2018 Instruction Type:Patient Education How to access health informa tion online - Detail Indication:Insulin resistance Start:14-Oct-2018 Instruction Type:Patient Education Patient Instructions Indication:Insulin resistance Start:14-Oct-2018 Instruction Type:Provider Instructions for Treatment How to access health informa tion online Indication:Non-smoker Start:20-Jan-2018 Instruction Type:Patient Education How to access health informa tion online - Detail Indication:Non-smoker Start:20-Jan-2018 Instruction Type:Patient Education Patient Instructions Indication:Non-smoker Start:20-Jan-2018 Instruction Type:Provider Instructions for Treatment How to access health informa tion online Indication:Non-smoker Start:12-Nov-2016 Instruction Type:Patient Education How to access health informa tion online - Detail Indication:Non-smoker Start:12-Nov-2016 Instruction Type:Patient Education Patient Instructions Indication:Non-smoker Start:12-Nov-2016 Instruction Type:Provider Instructions for Treatment Patient Instructions Indication:Vitamin D deficiency Start:05-Oct-2015 Instruction Type:Provider Instructions for Treatment How to access health informa tion online Indication:Vitamin D deficiency Start:22-Nov-2014 Instruction Type:Patient Education How to access health informa tion online - Detail Indication:Vitamin D deficiency Start:22-Nov-2014 Instruction Type:Patient Education Patient Instructions Indication:Vitamin D deficiency Start:22-Nov-2014 Instruction Type:Provider Instructions for Treatment Patient Instructions Indication:Back pain Start:22-Nov-2014 Instruction Type:Provider Instructions for Treatment Name Dates Details How to access health informa tion online Indication:Insulin resistance Start:14-Oct-2018 Instruction Type:Patient Education How to access health informa tion online - Detail Indication:Insulin resistance Start:14-Oct-2018 Instruction Type:Patient Education Patient Instructions Indication:Insulin resistance Start:14-Oct-2018 Instruction Type:Provider Instructions for Treatment How to access health informa tion online Indication:Non-smoker Start:20-Jan-2018 Instruction Type:Patient Education How to access health informa tion online - Detail Indication:Non-smoker Start:20-Jan-2018 Instruction Type:Patient Education Patient Instructions Indication:Non-smoker Start:20-Jan-2018 Instruction Type:Provider Instructions for Treatment How to access health informa tion online Indication:Non-smoker Start:12-Nov-2016 Instruction Type:Patient Education How to access health informa tion online - Detail Indication:Non-smoker Start:12-Nov-2016 Instruction Type:Patient Education Patient Instructions Indication:Non-smoker Start:12-Nov-2016 Instruction Type:Provider Instructions for Treatment Patient Instructions Indication:Vitamin D deficiency Start:05-Oct-2015 Instruction Type:Provider Instructions for Treatment How to access health informa tion online Indication:Vitamin D deficiency Start:22-Nov-2014 Instruction Type:Patient Education How to access health informa tion online - Detail Indication:Vitamin D deficiency Start:22-Nov-2014 Instruction Type:Patient Education Patient Instructions Indication:Vitamin D deficiency Start:22-Nov-2014 Instruction Type:Provider Instructions for Treatment Patient Instructions Indication:Back pain Start:22-Nov-2014 Instruction Type:Provider Instructions for Treatment Name Dates Details How to access health informa tion online Indication:Non-smoker Start:20-Feb-2020 Instruction Type:Patient Education How to access health informa tion online - Detail Indication:Non-smoker Start:20-Feb-2020 Instruction Type:Patient Education Patient Instructions Indication:Non-smoker Start:20-Feb-2020 Instruction Type:Provider Instructions for Treatment How to access health informa tion online Indication:Insulin resistance Start:14-Oct-2018 Instruction Type:Patient Education How to access health informa tion online - Detail Indication:Insulin resistance Start:14-Oct-2018 Instruction Type:Patient Education Patient Instructions Indication:Insulin resistance Start:14-Oct-2018 Instruction Type:Provider Instructions for Treatment How to access health informa tion online Indication:Non-smoker Start:20-Jan-2018 Instruction Type:Patient Education How to access health informa tion online - Detail Indication:Non-smoker Start:20-Jan-2018 Instruction Type:Patient Education Patient Instructions Indication:Non-smoker Start:20-Jan-2018 Instruction Type:Provider Instructions for Treatment How to access health informa tion online Indication:Non-smoker Start:12-Nov-2016 Instruction Type:Patient Education How to access health informa tion online - Detail Indication:Non-smoker Start:12-Nov-2016 Instruction Type:Patient Education Patient Instructions Indication:Non-smoker Start:12-Nov-2016 Instruction Type:Provider Instructions for Treatment Patient Instructions Indication:Vitamin D deficiency Start:05-Oct-2015 Instruction Type:Provider Instructions for Treatment How to access health informa tion online Indication:Vitamin D deficiency Start:22-Nov-2014 Instruction Type:Patient Education How to access health informa tion online - Detail Indication:Vitamin D deficiency Start:22-Nov-2014 Instruction Type:Patient Education Patient Instructions Indication:Vitamin D deficiency Start:22-Nov-2014 Instruction Type:Provider Instructions for Treatment Patient Instructions Indication:Back pain Start:22-Nov-2014 Instruction Type:Provider Instructions for Treatment Name Dates Details How to access health informa tion online Indication:Non-smoker Start:20-Feb-2020 Instruction Type:Patient Education How to access health informa tion online - Detail Indication:Non-smoker Start:20-Feb-2020 Instruction Type:Patient Education Patient Instructions Indication:Non-smoker Start:20-Feb-2020 Instruction Type:Provider Instructions for Treatment How to access health informa tion online Indication:Insulin resistance Start:14-Oct-2018 Instruction Type:Patient Education How to access health informa tion online - Detail Indication:Insulin resistance Start:14-Oct-2018 Instruction Type:Patient Education Patient Instructions Indication:Insulin resistance Start:14-Oct-2018 Instruction Type:Provider Instructions for Treatment How to access health informa tion online Indication:Non-smoker Start:20-Jan-2018 Instruction Type:Patient Education How to access health informa tion online - Detail Indication:Non-smoker Start:20-Jan-2018 Instruction Type:Patient Education Patient Instructions Indication:Non-smoker Start:20-Jan-2018 Instruction Type:Provider Instructions for Treatment How to access health informa tion online Indication:Non-smoker Start:12-Nov-2016 Instruction Type:Patient Education How to access health informa tion online - Detail Indication:Non-smoker Start:12-Nov-2016 Instruction Type:Patient Education Patient Instructions Indication:Non-smoker Start:12-Nov-2016 Instruction Type:Provider Instructions for Treatment Patient Instructions Indication:Vitamin D deficiency Start:05-Oct-2015 Instruction Type:Provider Instructions for Treatment How to access health informa tion online Indication:Vitamin D deficiency Start:22-Nov-2014 Instruction Type:Patient Education How to access health informa tion online - Detail Indication:Vitamin D deficiency Start:22-Nov-2014 Instruction Type:Patient Education Patient Instructions Indication:Vitamin D deficiency Start:22-Nov-2014 Instruction Type:Provider Instructions for Treatment Patient Instructions Indication:Back pain Start:22-Nov-2014 Instruction Type:Provider Instructions for Treatment Name Dates Details How to access health informa tion online Indication:Non-smoker Start:20-Feb-2020 Instruction Type:Patient Education How to access health informa tion online - Detail Indication:Non-smoker Start:20-Feb-2020 Instruction Type:Patient Education Patient Instructions Indication:Non-smoker Start:20-Feb-2020 Instruction Type:Provider Instructions for Treatment How to access health informa tion online Indication:Insulin resistance Start:14-Oct-2018 Instruction Type:Patient Education How to access health informa tion online - Detail Indication:Insulin resistance Start:14-Oct-2018 Instruction Type:Patient Education Patient Instructions Indication:Insulin resistance Start:14-Oct-2018 Instruction Type:Provider Instructions for Treatment How to access health informa tion online Indication:Non-smoker Start:20-Jan-2018 Instruction Type:Patient Education How to access health informa tion online - Detail Indication:Non-smoker Start:20-Jan-2018 Instruction Type:Patient Education Patient Instructions Indication:Non-smoker Start:20-Jan-2018 Instruction Type:Provider Instructions for Treatment How to access health informa tion online Indication:Non-smoker Start:12-Nov-2016 Instruction Type:Patient Education How to access health informa tion online - Detail Indication:Non-smoker Start:12-Nov-2016 Instruction Type:Patient Education Patient Instructions Indication:Non-smoker Start:12-Nov-2016 Instruction Type:Provider Instructions for Treatment Patient Instructions Indication:Vitamin D deficiency Start:05-Oct-2015 Instruction Type:Provider Instructions for Treatment How to access health informa tion online Indication:Vitamin D deficiency Start:22-Nov-2014 Instruction Type:Patient Education How to access health informa tion online - Detail Indication:Vitamin D deficiency Start:22-Nov-2014 Instruction Type:Patient Education Patient Instructions Indication:Vitamin D deficiency Start:22-Nov-2014 Instruction Type:Provider Instructions for Treatment Patient Instructions Indication:Back pain Start:22-Nov-2014 Instruction Type:Provider Instructions for Treatment Name Dates Details How to access health informa tion online Indication:Non-smoker Start:20-Feb-2020 Instruction Type:Patient Education How to access health informa tion online - Detail Indication:Non-smoker Start:20-Feb-2020 Instruction Type:Patient Education Patient Instructions Indication:Non-smoker Start:20-Feb-2020 Instruction Type:Provider Instructions for Treatment How to access health informa tion online Indication:Insulin resistance Start:14-Oct-2018 Instruction Type:Patient Education How to access health informa tion online - Detail Indication:Insulin resistance Start:14-Oct-2018 Instruction Type:Patient Education Patient Instructions Indication:Insulin resistance Start:14-Oct-2018 Instruction Type:Provider Instructions for Treatment How to access health informa tion online Indication:Non-smoker Start:20-Jan-2018 Instruction Type:Patient Education How to access health informa tion online - Detail Indication:Non-smoker Start:20-Jan-2018 Instruction Type:Patient Education Patient Instructions Indication:Non-smoker Start:20-Jan-2018 Instruction Type:Provider Instructions for Treatment How to access health informa tion online Indication:Non-smoker Start:12-Nov-2016 Instruction Type:Patient Education How to access health informa tion online - Detail Indication:Non-smoker Start:12-Nov-2016 Instruction Type:Patient Education Patient Instructions Indication:Non-smoker Start:12-Nov-2016 Instruction Type:Provider Instructions for Treatment Patient Instructions Indication:Vitamin D deficiency Start:05-Oct-2015 Instruction Type:Provider Instructions for Treatment How to access health informa tion online Indication:Vitamin D deficiency Start:22-Nov-2014 Instruction Type:Patient Education How to access health informa tion online - Detail Indication:Vitamin D deficiency Start:22-Nov-2014 Instruction Type:Patient Education Patient Instructions Indication:Vitamin D deficiency Start:22-Nov-2014 Instruction Type:Provider Instructions for Treatment Patient Instructions Indication:Back pain Start:22-Nov-2014 Instruction Type:Provider Instructions for Treatment Name Dates Details How to access health informa tion online Indication:Non-smoker Start:20-Jan-2018 Instruction Type:Patient Education How to access health informa tion online - Detail Indication:Non-smoker Start:20-Jan-2018 Instruction Type:Patient Education Patient Instructions Indication:Non-smoker Start:20-Jan-2018 Instruction Type:Provider Instructions for Treatment How to access health informa tion online Indication:Non-smoker Start:12-Nov-2016 Instruction Type:Patient Education How to access health informa tion online - Detail Indication:Non-smoker Start:12-Nov-2016 Instruction Type:Patient Education Patient Instructions Indication:Non-smoker Start:12-Nov-2016 Instruction Type:Provider Instructions for Treatment Patient Instructions Indication:Vitamin D deficiency Start:05-Oct-2015 Instruction Type:Provider Instructions for Treatment How to access health informa tion online Indication:Vitamin D deficiency Start:22-Nov-2014 Instruction Type:Patient Education How to access health informa tion online - Detail Indication:Vitamin D deficiency Start:22-Nov-2014 Instruction Type:Patient Education Patient Instructions Indication:Vitamin D deficiency Start:22-Nov-2014 Instruction Type:Provider Instructions for Treatment Patient Instructions Indication:Back pain Start:22-Nov-2014 Instruction Type:Provider Instructions for Treatment Chief Complaint and Reason for Visit Chief Complaint GALLBLADDER GALLBLADDER 2/7 FU 3MO LABS PRIOR Reason for Visit Cholelithiasis Fatty liver Cholelithiasis with chronic cholecystitis Fatty (change of) liver, not elsewhere classified Cholelithiasis with chronic cholecystitis Fatty liver Hepatitis Cholelithiasis with chronic cholecystitis Diarrhea Fatty liver Abnormal coagulation profile Chief Complaint GALLBLADDER 2/7 FU 3MO LABS PRIOR SCREENING Reason for Visit Fatty (change of) li arun, not elsewhere classified Cholelithiasis with chronic cholecystitis Fatty liver Hepatitis Cholelithiasis with chronic cholecystitis Diarrhea Fatty liver Abnormal coagulation profile Chief Complaint Admit Date CONCERN FOR SINUS INFECTION December 30, 2024 3:48pm Advance Directives No Advanced Directives Records Found Advance Directive Response Recorded Date/ Time Living Will No June 28 9:34am Power of Inventory Control Planner No June 28, 2021 9:34am Summary Purpose Additional Source Comments Goals (unrecognized section and content) Goals may be documented in a n alternate sectionGoals may be documented in an alternate sectionGoals may be documented in an alternate section INFORMATION SOURCE (unrecogn ized section and content) DATE CREATED AUTHOR 01/29/2022 [facility] DATE CREATED AUTHOR AUTHOR'S ORGANIZ ATION 05/27/2022 [facility] DATE CREATED AUTHOR AUTHOR'S ORGANIZ ATION [facility] DATE CREATED AUTHOR AUTHOR'S ORGANIZ ATION 04/06/2024 [facility] DATE CREATED AUTHOR AUTHOR'S ORGANIZ ATION 10/09/2024 [facility] DATE CREATED AUTHOR AUTHOR'S ORGANIZ ATION 12/26/2024 [facility] DATE CREATED AUTHOR AUTHOR'S ORGANIZ ATION 12/27/2024 [facility] DATE CREATED AUTHOR AUTHOR'S ORGANIZ ATION 12/30/2024 [facility] Reason for Visit (unrecogniz ed section and content) Reason Comments Establish Care New patient, no jigmaker care in chart. Patient states she used to see Dr. Calin Callejas in [facility]. Last saw them 2 years ago. Patient states she has never had an abnormal pap. Positive for trichomonas in 2020.Discuss fertility patient wants to conceive, HX of PCOS. Reason Comments Annual Exam Well woman. Last pap 09-04-2020 NILM, results in media. Seen in July to establish and for infertility. Patient had a mammogram in 2021. Reason Comments intake LMP 07/20/24 Reason Comments Miscarriage Patient is here for miscarriage follow up from 09/16/2024. Patient denies any vaginal bleeding. Patient is having abdominal cramping, decreased energy, fatigue. Patient would like to become again. Care Teams (unrecognized sec tion and content) Fret[employer] Hand Relationship Specialty Start Date End Date Odalys Raymond DO [address] [facility] [address] [place] [address] PCP - General Internal Medicine 08/11/23 Fretted Instrument Maker Hand Relationship Specialty [place] [address] [place] [address] [address] [place] [address] PCP - General Internal Medicine 08/11/23 Fretted Instrument Maker Hand Relationship Specialty Start [place] [address] [place] [address] [address] [place] [address] PCP - General Internal Medicine 08/11/23 Fretted Instrument Maker Hand Relationship Specialty Start Date End Date Odalys Raymond DO [address] [facility] [address] [place] [address] PCP - General Internal Medicine 08/11/23 Fretted Instrument Maker Hand Relationship Specialty Start Date End Date Odalys Raymond DO [address] [facility] [address] [place] [address] PCP - General Internal Medicine 08/11/23 Fretted Instrument Maker Hand Relationship Specialty Start Date End Date Odalys Raymond DO [address] [facility] [address] [place] [address] PCP - General Internal Medicine 08/11/23 Team Status: Active Member Role/Relationship Status Dates Dr. Odalys Raymond DO Family Provider Active Dr. Odalys Raymond DO Primary Care Provider Active Team Status: Inactive Member Role/Relationship Status Dates Dr. Odalys Raymond DO Primary Care Provider Active Start: December 30, 2024 End: December 30, 2024 Dr. Odalys Raymond DO Referring Provider Active Start: December 30, 2024 End: December 30, 2024 KATHRINE Savage Attending Provider Active Sta rt: December 30, 2024 End: December 30, 2024 FOR RECORDS PERTAINING TO PATIENTS WHO ARE OR HAVE BEEN ENROLLED IN A CHEMICAL DEPENDENCY/SUBSTANCEABUSE PROGRAM, SOME INFORMATION MAY BE OMITTED. This clinical summary was aggregated from multiple sources. Caution should be exercised in using it in the provision of clinical care. This summary normalizes information from multiple sources, and as a consequence, information in this document may materially change the coding, format and clinical context of patient data. In addition, data may be omitted in some cases. CLINICAL DECISIONS SHOULD BE BASED ON THE PRIMARY CLINICAL RECORDS. [facility] [employer] provides no warranty or guarantee of the accuracy or completeness of information in this document.
--- OUTSIDE RECORDS SUMMARY | 2024-12-30 17:16 | XMS RPT_ITS | CCD ---
Author Organization [facility] Care Team Providers Care Dependency Case Manager Name Role Phone Odalys Raymond Unavailable Neema Jackson Unavailable Unavailable Unavailable Unavailable Unavailable Unavailable Odalys Raymond Unavailable Neema Jackson Unavailable Unavailable Long Soledad L Unavailable Unavailable Unavailable Unavailable Long Soledad L Unavailable Unavailable Unavailable Unavailable Unavailable Unavailable Gravius, Jackelin Unavailable Unavailable Odalys Raymond DO Unavailable Gravius HOUSEHOLD REFRIGERATOR MECHANIC, Jackelin Unavailable Unavailable Unavailable Unavailable Cross TRAIN PLANNER, Mariah Unavailable Unavailable Slarb TRAIN PLANNER, Muna Unavailable Unavailable Unavailable Unavailable Odalys Raymond DO Unavailable Sajan TRAIN PLANNER, Zamzam Unavailable Unavailable Dr. Odalys Raymond Primary Care Provider Dr. Toro Epstein Attending Provider ARLEEN Wallace NP Referring Provider Dr. Toro Epstein Referring Provider Dr. Toro Epstein Other Provider Dr. Odalys Raymond Referring Provider ARLEEN Wallace NP Attending Provider Dr. Bob Johnson Attending Provider Dr. Odalys Raymond Primary Care Provider Dr. Toro Epstein Attending Provider SHERRIE WHITTEN Attending Unavail able Mandi DOOdalys Attending Unavailable Mandi DO, Odalys Consulting Unavailable Meli TRAIN PLANNER, Adalid Unavailable Unavailable [place] HOUSEHOLD REFRIGERATOR MECHANIC, Arslana Unavailable Unavailable Mandi Odalys GLI Primary Care Provider [phone] SYSTEM, PROVIDER NOT IN Referring Unavaila ble [...] Unavai lable MANDI, ODALYS Tidwell Attending Unavailable MADNI, ODALYS K Primary Care Unavailable MANDI, ODALYS K Primary Care Unavailable WES ARAMBULA Attending Unava ilable Mandi GIL, Dr. Morrow Primary Care Provider Dr. Odalys Raymond DO Referring Provider [phone] Michel Salazar Attending Provider [phone] Medications Current Medications Medication Drug Class(es) [...] 60 {Tablet} Refills: 3 Ordered: 03-Aug-2019 Odalys Rayomnd DO, DO, Kathleen Start : 03-Aug-2019 Active [...] Start: 11-30-2020 take 2 tablets by mo [facility] once daily metFORMIN HCl ER 500 MG [...] : 05-May-2018 End : 30-Nov-2020 Discontinued Comments: [id number] Start: 01-20-2018 ClonazePAM 1 M G Oral Tablet 1 (one) Tablet qdaily prn for 30 days Quantity: 30 {Tablet} Refills: 0 Ordered: 20-Jan-2018 Odalys Raymond DO, DO, Kathleen Start : 20-Jan-2018 Active Comments: [id number] Comment on above: [id number] cyclobenzaprine hydrochloride 10 mg oral tablet (20 [...] (20 sources) Provitamin D2 Compound Vitamin D 65878 U Or al Tablet 1 tab daily (90418 U) Active Lo Loestrin Fe 1 MG-10 [...] 30 {Tablet} Refills: 0 Ordered: 30-Nov-2020 Luis PINANunoMairah Start : 11-Jun-2020 End : 30-Nov-2020 Discontinued [...] Quantity: 30 {Tablet} Refills: 0 Ordered: 20-Jan-2018 eNema Jackson RN Start : 13-Nov-2016 End : [...] 1 {Packet} Refills: 0 Ordered: 23-Jan-2022 Gravius HOUSEHOLD REFRIGERATOR MECHANIC, Jackelin Start : 11-Nov-2021 End : 23-Jan-2022 [...] 1 {Packet} Refills: 0 Ordered: 23-Jan-2022 Gravius HOUSEHOLD REFRIGERATOR MECHANIC, Jackelin Start : 11-Nov-2021 End : 23-Jan-2022 [...] Start : 11-Nov-2021 Active polyethylene glycol 3350 65643 mg powder for oral solution (3 sources) [...] QNon 12-28-2024 HCG Qn 380 m[IU]/mL High [facility] Comment on above: Result Comment: Refe rence Range Non or premenopausal <5 Postmenopausal <10 Values from different assay methods may vary. The use of this assay to monitor or to diagnose patients with cancer or any condition unrelated to has not been cleared or approved by the FDA or the commercial lines assistant of the assay. Performed By: #### 8 396, 222 #### [facility] [address], [address] [place] [phone] Telecommunications Analyst: Ben Powell MD PROGESTERONEon 12-28-2024 PROGESTERONE 21.1 ng/mL Normal [facility] Comment on above: Result Comment: Refe rence Ranges Female Follicular Phase < 1.0 Luteal Phase 2.6-21.5 Post menopausal < 0.5 1st Trimester 4.1-34.0 2nd Trimester 24.0-76.0 3rd Trimester 52.0-302.0 Performed By: #### 8 562, 775 #### [facility] [address], [address] [place] [phone] Telecommunications Analyst: Ben Powell MD ED Prov Noteon 12-26-2024 ED Prov Note ED PROVIDER NOTE [facility] EM[facility]ENCY [facility] NAME: Alma Ulloa AGE: 39 y.o. : 1985 VISIT DATE: 12/26/2024 CSN: [id number] PCP: Odalys Raymond DO Chief Complaint Patient [...] Surgical History: Procedure Laterality Date CHOLECYSTECTOMY 06/2021 [facility] Family History Problem Relation Age of [...] Negative Negati (more content not included)... Normal [facility] HCG, BLOOD, QUANTITATIVEon 0 12-26-2024 HCG, QUANTITATIVE 176 mIU/mL High 0-5 [facility] Comment on above: Order Comment: Males and non females: <5 mIU/mL Females during : 3-4 weeks 9-130 mIU/mL 4-5 weeks 75-2600 mIU/mL 5-6 weeks 850-20,800 mIU/mL 6-7 weeks 4000-100,200 mIU/mL 7-12 weeks 11,500-289,000 mIU/mL 12-16 weeks 18,300-137,000 mIU/mL 16-29 weeks 1,400-53,000 mIU/mL 29-41 weeks 940-60,000 mIU/mL Performed By: #### 4 [id number] #### LAB [address] [place] [address] Jesus Camilo M.D. [id number] POC STREP A - MOLECULAR RALS on 12-26-2024 POC STREP A SCREEN Negative Normal Negative [facility] PROGESTERONEon 12-26-2024 PROGESTERONE 16.3 ng/mL Normal [facility] Comment on above: Order Comment: Expec geoff Values: Males: 0 -0.6 ng/mL Non females: Follicular phase: 0 - 1.5 ng/mL Luteal phase: 2.3 - 25.0 ng/mL Mid-luteal phase: 3.5 - 25.0 ng/mL Postmenopausal: 0 - 0.7 ng/mL Oral contraceptives: 0 -0.4 ng/mL females: First trimester: 8.1 - 42.0 ng/mL Performed By: #### 4 [id number] #### [facility] [place], [place] [address] Wes Sargent M.D. [id number] CBC WITH AUTO DIFFERENTIALon 12-24-2024 AUTO NRBC 0.0 % [facility] Comment on above: Performed By: #### L [id number] #### [facility] [address] [address] Jesus Camilo M.D. [id number] AUTO NRBC ABS COUNT 0.00 K/mcL Normal 0.00-0.00 [facility] Comment on above: Performed By: #### L [id number] #### LAB [address] [place] [address] Jesus Camilo M.D. [id number] BASOPHILS ABSOLUTE COUNT 0.09 K/mcL Normal 0.00-0.30 [facility] Comment on above: Performed By: #### L [id number] #### LAB [address] [place] [address] Jesus Camilo M.D. [id number] Basophils/100 WBC (Bld) 1.0 % [facility] Comment on above: Performed By: #### L [id number] #### LAB [address] [place] [address] Jesus Camilo M.D. [id number] Eosinophils (Bld) [#/Vol] 0.20 10*3/uL Normal 0.00-0.50 [facility] Comment on above: Performed By: #### L [id number] #### LAB [address] [place] [address] Jesus Camilo M.D. [id number] Eosinophils/100 WBC (Bld) 2.1 % [facility] Comment on above: Performed By: #### L [id number] #### LAB [address] [place] [address] Jesus Camilo M.D. [id number] Erythrocyte distribution width (RBC) [Ratio] 14.6 % Normal 11.6-14.8 [facility] Comment on above: Performed By: #### L [id number] #### LAB [address] [address] Jesus Camilo M.D. [id number] Hematocrit (Bld) [Volume fraction] 40.1 % Normal 36.0-46.0 [facility] Comment on above: Performed By: #### L [id number] #### LAB [address] [address] Jesus Camilo M.D. [id number] Hemoglobin (Bld) [Mass/Vol] 13.4 g/dL Normal 12.0-16.0 [facility] Comment on above: Performed By: #### L [id number] #### LAB [address] [place] [address] Jesus Camilo M.D. [id number] IG ABSOLUTE 0.06 K/mcL Normal 0.00-0.30 [facility] Comment on above: Performed By: #### L [id number] #### LAB [address] [place] [address] Jesus Camilo M.D. [id number] IG PERCENT 0.60 % Normal [facility] Comment on above: Result Comment: The IG parameter is the percentage of metamyelocytes, myelocytes and promyelocytes. An immature granulocyte count (IG) of 1% or more suggests the possibility of infection, an IG count of 3% is very likely related to an infection. Performed By: #### L [id number] #### LAB [address] [place] [address] Jesus Camilo M.D. [id number] Lymphocytes (Bld) [#/Vol] 3.41 10*3/uL Normal 0.90-4.00 [facility] Comment on above: Performed By: #### L [id number] #### LAB [address] [place] [address] Jesus Camilo M.D. [id number] Lymphocytes/100 WBC (Bld) 36.1 % Normal [facility] Comment on above: Performed By: #### L [id number] #### LAB [address] [address] Jesus Camilo M.D. [id number] MCH (RBC) [Entitic mass] 28.9 pg Normal 26.0-34.0 [facility] Comment on above: Performed By: #### L [id number] #### LAB [address] [address] Jesus Camilo M.D. [id number] MCV (RBC) [Entitic vol] 86.6 fL Normal 80.0-100.0 [facility] Comment on above: Performed By: #### L [id number] #### LAB [address] [address] Jesus Camilo M.D. [id number] MEAN CORPUSCULAR HEMOGLOBIN CONC 33.4 g/dL Normal 31.0-37.0 [facility] Comment on above: Performed By: #### L [id number] #### LAB [address] [address] Jesus Camilo M.D. [id number] Monocytes (Bld) [#/Vol] 0.38 10*3/uL Normal 0.30-0.90 [facility] Comment on above: Performed By: #### L [id number] #### LAB [address] [place] [address] Jesus Camilo M.D. [id number] Monocytes/100 WBC (Bld) 4.0 % Normal [facility] Comment on above: Performed By: #### L [id number] #### LAB [address] [address] Jesus Camilo M.D. [id number] NEUTROPHILS ABSOLUTE COUNT 5.31 K/mcL Normal 1.70-7.00 [facility] Comment on above: Performed By: #### L [id number] #### LAB [address] [place] [address] Jesus Camilo M.D. [id number] Neutrophils/100 WBC (Bld) 56.2 % Normal [facility] Comment on above: Performed By: #### L [id number] #### [facility] [address] [address] Jesus Camilo M.D. [id number] Platelet mean volume (Bld) [Entitic vol] 8.4 fL Low 9.4-12.4 [facility] Comment on above: Performed By: #### L [id number] #### [facility] [address] [address] Jesus Camilo M.D. [id number] Platelets (Bld) [#/Vol] 416 10*3/uL High 150-400 [facility] Comment on above: Performed By: #### L [id number] #### [facility] [address] [address] Jesus Camilo M.D. [id number] RBC (Bld) [#/Vol] 4.63 10*6/uL Normal 4.00-5.20 [facility] Comment on above: Performed By: #### L [id number] #### [facility] [address] [address] Jesus Camilo M.D. [id number] WBC (Bld) [#/Vol] 9.45 10*3/uL Normal 4.50-11.00 [facility] Comment on above: Performed By: #### L [id number] #### [facility] [address] [address] Jesus Camilo M.D. [id number] COMPREHENSIVE METABOLIC PANE Craig 12-24-2024 Albumin [Mass/Vol] 4.2 g/dL Normal 3.2-5.2 [facility] Comment on above: Order Comment: [facility] has implemented the eGFR calculation approach that does not have a coefficient for race that conforms to the NKF-ASN Task Force Recommendations. Performed By: #### 4 6126 ####[facility] [address] [address] Jesus Camilo M.D. [id number] ALP [Catalytic activity/Vol] 69 U/L Normal 40-140 [facility] Comment on above: Order Comment: [facility] has implemented the eGFR calculation approach that does not have a coefficient for race that conforms to the NKF-ASN Task Force Recommendations. Performed By: #### 4 6126 #### LAB [address] [address] Jesus Camilo M.D. [id number] ALT [Catalytic activity/Vol] 35 U/L Normal 0-35 U/L [facility] Comment on above: Order Comment: [facility] has implemented the eGFR calculation approach that does not have a coefficient for race that conforms to the NKF-ASN Task Force Recommendations. Performed By: #### 4 6126 #### LAB [address] [address] Jesus Camilo M.D. [id number] Anion gap [Moles/Vol] 18 mmol/L Normal 10-20 [facility] Comment on above: Order Comment: [facility] has implemented the eGFR calculation approach that does not have a coefficient for race that conforms to the NKF-ASN Task Force Recommendations. Performed By: #### 4 6126 #### LAB [address] [address] Jesus Camilo M.D. [id number] AST [Catalytic activity/Vol] 18 U/L Normal 0-35 U/L [facility] Comment on above: Order Comment: [facility] has implemented the eGFR calculation approach that does not have a coefficient for race that conforms to the NKF-ASN Task Force Recommendations. Performed By: #### 4 6126 #### LAB [address] [address] Jesus Camilo M.D. [id number] BILIRUBIN TOTAL < Normal 0.0-1.3 [facility] Comment on above: Order Comment: [facility] has implemented the eGFR calculation approach that does not have a coefficient for race that conforms to the NKF-ASN Task Force Recommendations. Performed By: #### 4 6126 #### LAB [address] [address] Jesus Camilo M.D. [id number] Calcium [Mass/Vol] 9.3 mg/dL Normal 8.4-10.2 [facility] Comment on above: Order Comment: [facility] has implemented the eGFR calculation approach that does not have a coefficient for race that conforms to the NKF-ASN Task Force Recommendations. Performed By: #### 4 6126 #### LAB [address] [address] Jesus Camilo M.D. [id number] Chloride [Moles/Vol] 103 mmol/L Normal 98-108 [facility] Comment on above: Order Comment: [facility] has implemented the eGFR calculation approach that does not have a coefficient for race that conforms to the NKF-ASN Task Force Recommendations. Performed By: #### 4 6126 #### LAB [address] [address] Jesus Camilo M.D. [id number] Creatinine [Mass/Vol] 0.86 mg/dL Normal 0.40-1.10 [facility] Comment on above: Order Comment: [facility] has implemented the eGFR calculation approach that does not have a coefficient for race that conforms to the NKF-ASN Task Force Recommendations. Performed By: #### 4 6126 #### LAB [address] [address] Jesus Camilo M.D. [id number] EGFR 89 mL/min/1.73 m2 Normal >=60 [facility] Comment on above: Order Comment: [facility] has implemented the eGFR calculation approach that does not have a coefficient for race that conforms to the NKF-ASN Task Force Recommendations. Result Comment: Yissel mated GFR was calculated using the 2020 CKD-EPI creatinine equation. Performed By: #### 4 6126 ####[facility] [address] [address] Jesus Camilo M.D. [id number] Glucose [Mass/Vol] 116 mg/dL High 65-99 [facility] Comment on above: Order Comment: [facility] has implemented the eGFR calculation approach that does not have a coefficient for race that conforms to the NKF-ASN Task Force Recommendations. Performed By: #### 4 6126 #### LAB [address] [address] Jesus Camilo M.D. [id number] HCO3 (Bld) [Moles/Vol] 20 mmol/L Low 21-32 [facility] Comment on above: Order Comment: [facility] has implemented the eGFR calculation approach that does not have a coefficient for race that conforms to the NKF-ASN Task Force Recommendations. Performed By: #### 4 6126 #### LAB [address] [address] Jesus Camilo M.D. [id number] Potassium [Moles/Vol] 3.6 mmol/L Normal 3.5-5.1 [facility] Comment on above: Order Comment: [facility] has implemented the eGFR calculation approach that does not have a coefficient for race that conforms to the NKF-ASN Task Force Recommendations. Performed By: #### 4 6126 #### LAB [address] [address] Jesus Camilo M.D. [id number] Protein [Mass/Vol] 7.2 g/dL Normal 6.0-8.0 [facility] Comment on above: Order Comment: [facility] has implemented the eGFR calculation approach that does not have a coefficient for race that conforms to the NKF-ASN Task Force Recommendations. Performed By: #### 4 6126 #### LAB [address] [address] Jesus Camilo M.D. [id number] Sodium [Moles/Vol] 137 mmol/L Normal 135-145 [facility] Comment on above: Order Comment: [facility] has implemented the eGFR calculation approach that does not have a coefficient for race that conforms to the NKF-ASN Task Force Recommendations. Performed By: #### 4 6126 #### LAB [address] [address] Jesus Camilo M.D. [id number] Urea nitrogen [Mass/Vol] 19 mg/dL Normal 8-25 [facility] Comment on above: Order Comment: [facility] has implemented the eGFR calculation approach that does not have a coefficient for race that conforms to the NKF-ASN Task Force Recommendations. Performed By: #### 4 6126 #### LAB [address] [place], [place] [address] Jesus Camilo M.D. [id number] Urea nitrogen/Creatinine [Mass ratio] 22.1 mg/mg High 10.0-20.0 [facility] Comment on above: Order Comment: [facility] has implemented the eGFR calculation approach that does not have a coefficient for race that conforms to the NKF-ASN Task Force Recommendations. Performed By: #### 4 6126 #### LAB [address] [place], [place] [address] Jesus Camilo M.D. [id number] ED Prov Noteon 12-24-2024 ED Prov Note [facility] ED ROMERO Note: NAME: Alma Ulloa 39 y.o. CSN: [id number] PCP: Odalys Raymond DO History: Chief Complaint: vaginal cramping HPI: The history was obtained from the patient. Alma is a 39 y.o. female who presents with a chief complaint of vaginal cramping. Patient has a past medical history of DM2, migraines, PCOS. She is G2, P0 miscarriage in August 2024, follows with [facility]. Approximately 4 weeks gestation with LMP [...] Surgical History: Procedure Laterality Date CHOLECYSTECTOMY 06/2021 [facility]. Hx: Family History Problem Relation [...] is intact. (more content not included)... Normal [facility] HCG, BLOOD, QUANTITATIVEon 0 12-24-2024 HCG, QUANTITATIVE 68 mIU/mL High 0-5 [facility] Comment on above: Order Comment: Males and non females: <5 mIU/mLFemales during :3-4 weeks 9-130 mIU/mL4-5 weeks 75-2600 mIU/mL5-6 weeks 850-20,800 mIU/mL6-7 weeks 4000-100,200 mIU/mL7-12 weeks 11,500-289,000 mIU/mL12-16 weeks 18,300-137,000 mIU/mL16-29 weeks 1,400-53,000 mIU/mL29-41 weeks 940-60,000 mIU/mL Performed By: #### 4 5827 ####[facility] [address] [address] Jesus Camilo M.D. [id number] HCG, TOTAL, QNon 12-24-2024 HCG Qn 55 [...] or approved by the FDA or the commercial lines assistant of the assay. Performed By: #### 8 396 #### [facility] [address], [address] [place], [place] [phone] Telecommunications Analyst: Ben Powell MD PROGESTERONEon 12-24-2024 PROGESTERONE 28.4 ng/mL Normal [facility] Comment on above: Order Comment: FASTI NG:NO FASTING: NO Result Comment: Refe rence Ranges Female Follicular Phase < 1.0 Luteal Phase 2.6-21.5 Post menopausal < 0.5 1st Trimester 4.1-34.0 2nd Trimester 24.0-76.0 3rd Trimester 52.0-302.0 Performed By: #### 7 45 #### [facility] [address], [address] [place] [phone] Telecommunications Analyst: Ben Powell MD URINALYSISon 12-24-2024 BACTERIA, URINE None Seen Normal None Seen [facility] Comment on above: Order Comment: Micro scopic examination is performed on all urinalysis samples and only positive findings are reported. The test for blood on the chemical analytic portion of urinalysis may also be positive due to hemoglobinuria and myoglobinuria and if red blood cells are present they are quantified by microscopic examination. Performed By: #### 4 6625 #### LAB [address] [address] Jesus Camilo M.D. [id number] BILIRUBIN, URINE Negative Normal Negative [facility] Comment on above: Order Comment: Micro scopic examination is performed on all urinalysis samples and only positive findings are reported. The test for blood on the chemical analytic portion of urinalysis may also be positive due to hemoglobinuria and myoglobinuria and if red blood cells are present they are quantified by microscopic examination. Performed By: #### 4 6625 #### LAB [address] [address] Jesus Camilo M.D. [id number] BLOOD, URINE Negative Normal Negative [facility] Comment on above: Order Comment: Micro scopic examination is performed on all urinalysis samples and only positive findings are reported. The test for blood on the chemical analytic portion of urinalysis may also be positive due to hemoglobinuria and myoglobinuria and if red blood cells are present they are quantified by microscopic examination. Performed By: #### 4 6625 #### [facility] [address] [address] Jesus Camilo M.D. [id number] Clarity (U) Clear Normal Clear [facility] Comment on above: Order Comment: Micro scopic examination is performed on all urinalysis samples and only positive findings are reported. The test for blood on the chemical analytic portion of urinalysis may also be positive due to hemoglobinuria and myoglobinuria and if red blood cells are present they are quantified by microscopic examination. Performed By: #### 4 6625 #### [facility] [address] [address] Jesus Camilo M.D. [id number] Color (U) Yellow Normal Colorless, Yellow [facility] Comment on above: Order Comment: Micro scopic examination is performed on all urinalysis samples and only positive findings are reported. The test for blood on the chemical analytic portion of urinalysis may also be positive due to hemoglobinuria and myoglobinuria and if red blood cells are present they are quantified by microscopic examination. Performed By: #### 4 6625 #### [facility] [address] [address] Jesus Camilo M.D. [id number] Glucose Ql (U) Negative Normal Negative [facility] Comment on above: Order Comment: Micro scopic examination is performed on all urinalysis samples and only positive findings are reported. The test for blood on the chemical analytic portion of urinalysis may also be positive due to hemoglobinuria and myoglobinuria and if red blood cells are present they are quantified by microscopic examination. Performed By: #### 4 [id number] #### [facility] [address] [address] Jesus Camilo M.D. [id number] Hyaline casts LM Ql (Urine sed) 0-2 Normal 0-2 [facility] Comment on above: Order Comment: Micro scopic examination is performed on all urinalysis samples and only positive findings are reported. The test for blood on the chemical analytic portion of urinalysis may also be positive due to hemoglobinuria and myoglobinuria and if red blood cells are present they are quantified by microscopic examination. Performed By: #### 4 6625 #### [facility] [address] [address] Jesus Camilo M.D. [id number] Ketones Ql (U) Negative Normal Negative [facility] Comment on above: Order Comment: Micro scopic examination is performed on all urinalysis samples and only positive findings are reported. The test for blood on the chemical analytic portion of urinalysis may also be positive due to hemoglobinuria and myoglobinuria and if red blood cells are present they are quantified by microscopic examination. Performed By: #### 4 [id number] #### LAB [address] [address] Jesus Camilo M.D. [id number] Leukocyte esterase Test strip Ql (U) Negative Normal Negative [facility] Comment on above: Order Comment: Micro scopic examination is performed on all urinalysis samples and only positive findings are reported. The test for blood on the chemical analytic portion of urinalysis may also be positive due to hemoglobinuria and myoglobinuria and if red blood cells are present they are quantified by microscopic examination. Performed By: #### 4 6625 #### LAB [address] [place], [place] [address] Jesus Camilo M.D. [id number] MUCUS, URINE Rare Normal None Seen, Rare [facility] Comment on above: Order Comment: Micro scopic examination is performed on all urinalysis samples and only positive findings are reported. The test for blood on the chemical analytic portion of urinalysis may also be positive due to hemoglobinuria and myoglobinuria and if red blood cells are present they are quantified by microscopic examination. Performed By: #### 4 [id number] #### LAB [address] [place] [id number] Jesus Camilo M.D. [id number] NITRITE, URINE Negative Normal Negative [facility] Comment on above: Order Comment: Micro scopic examination is performed on all urinalysis samples and only positive findings are reported. The test for blood on the chemical analytic portion of urinalysis may also be positive due to hemoglobinuria and myoglobinuria and if red blood cells are present they are quantified by microscopic examination. Performed By: #### 4 6625 #### LAB [address] [place] [id number] Jesus Camilo M.D. [id number] pH (U) 6.0 [pH] Normal 5.0-7.0 [facility] Comment on above: Order Comment: Micro scopic examination is performed on all urinalysis samples and only positive findings are reported. The test for blood on the chemical analytic portion of urinalysis may also be positive due to hemoglobinuria and myoglobinuria and if red blood cells are present they are quantified by microscopic examination. Performed By: #### 4 [id number] #### LAB [address] [place], [place] [address] Jesus Camilo M.D. [id number] PROTEIN, URINE Negative Normal Negative [facility] Comment on above: Order Comment: Micro scopic examination is performed on all urinalysis samples and only positive findings are reported. The test for blood on the chemical analytic portion of urinalysis may also be positive due to hemoglobinuria and myoglobinuria and if red blood cells are present they are quantified by microscopic examination. Performed By: #### 4 [id number] #### LAB [address] [place] [address] Jesus Camilo M.D. [id number] RBC LM.HPF (Urine sed) [#/Area] 1 /[HPF] Normal 0-3 [facility] Comment on above: Order Comment: Micro scopic examination is performed on all urinalysis samples and only positive findings are reported. The test for blood on the chemical analytic portion of urinalysis may also be positive due to hemoglobinuria and myoglobinuria and if red blood cells are present they are quantified by microscopic examination. Performed By: #### 4 [id number] #### LAB [address] [place] [address] Jesus Camilo M.D. [id number] Specific gravity (U) [Rel density] 1.021 Normal 1.005-1.025 [facility] Comment on above: Order Comment: Micro scopic examination is performed on all urinalysis samples and only positive findings are reported. The test for blood on the chemical analytic portion of urinalysis may also be positive due to hemoglobinuria and myoglobinuria and if red blood cells are present they are quantified by microscopic examination. Performed By: #### 4 [id number] #### LAB [address] [place] [address] Jesus Camilo M.D. [id number] SQUAMOUS EPITHELIAL 10 /hpf High 0-4 [facility] Comment on above: Order Comment: Micro scopic examination is performed on all urinalysis samples and only positive findings are reported. The test for blood on the chemical analytic portion of urinalysis may also be positive due to hemoglobinuria and myoglobinuria and if red blood cells are present they are quantified by microscopic examination. Performed By: #### 4 [id number] #### LAB [address] [place] [address] Jesus Camilo M.D. [id number] UROBILINOGEN, URINE <2.0 Normal <2.0 [facility] Comment on above: Order Comment: Micro scopic examination is performed on all urinalysis samples and only positive findings are reported. The test for blood on the chemical analytic portion of urinalysis may also be positive due to hemoglobinuria and myoglobinuria and if red blood cells are present they are quantified by microscopic examination. Performed By: #### 4 6625 #### LAB [address] [place], [place] [address] Jesus Camilo M.D. [id number] WBC LM.HPF (Urine sed) [#/Area] 1 /[HPF] Normal 0-5 [facility] Comment on above: Order Comment: Micro scopic examination is performed on all urinalysis samples and only positive findings are reported. The test for blood on the chemical analytic portion of urinalysis may also be positive due to hemoglobinuria and myoglobinuria and if red blood cells are present they are quantified by microscopic examination. Performed By: #### 4 [id number] #### LAB [address] [place], [place] [address] Jesus Camilo M.D. [id number] US OB TRANSVAGINAL WITH COLO R FLOW [...] ID: [id number] Dictated by: MIGDALIA PENA on [facility] Dec 24, 2024 8:05:34 AM EDT Transcribed by: MIGDALIA PENA on [facility] Dec 24, 2024 8:05:34 AM EDT Finalized by: MIGDALIA PENA on [facility] Dec 24, 2024 8:05:34 AM EDT Normal [facility] Comment on above: Order Comment: Injur y/Trauma or Illness?:Illness/Other How long have you had these symptoms (acute/chronic)?:Acute Reason for exam?:pelvic pain History of cancer?:unknown Surgeries, chemotherapy, or radiation?:unknown Type of Exam?:Initial Additional signs and symptoms?:no HCG, TOTAL, QNon 12-22-2024 HCG Qn 32 m[IU]/mL High [facility] Comment on above: Result Comment: Refe rence Range Non or premenopausal <5 Postmenopausal <10 Values from different assay methods may vary. The use of this assay to monitor or to diagnose patients with cancer or any condition unrelated to has not been cleared or approved by the FDA or the commercial lines assistant of the assay. Performed By: #### 8 729, 157 #### [facility] [address] Telecommunications Analyst: Ben Powell MD PROGESTERONEon 12-22-2024 PROGESTERONE 53.7 ng/mL Normal [facility] Comment on above: Result Comment: Refe rence Ranges Female Follicular Phase < 1.0 Luteal Phase 2.6-21.5 Post menopausal < 0.5 1st Trimester 4.1-34.0 2nd Trimester 24.0-76.0 3rd Trimester 52.0-302.0 Performed By: #### 8 455, 011 #### [facility] [address], [address] [place], [place] [address] Telecommunications Analyst: Ben Powell MD CBC (H/H, RBC, INDICES, WBC, PLT)on 10-30-2024 Erythrocyte distribution width (RBC) [Ratio] 14.4 % Normal 11.0-15.0 [facility] Comment on above: Performed By: #### 5 , 1759 #### [facility] of [address], [address] [place] [address] Telecommunications Analyst: Ben Powell MD Hematocrit (Bld) [Volume fraction] 37.8 % Normal 35.0-45.0 [facility] Comment on above: Performed By: #### 5 , 175 #### [facility] of [address], [address] [place] [address] Telecommunications Analyst: Ben Powell MD Hemoglobin (Bld) [Mass/Vol] 12.2 g/dL Normal 11.7-15.5 [facility] Comment on above: Performed By: #### 5 , 175 #### [facility] of [address], [address] [place] [address] Telecommunications Analyst: Ben Powell MD MCH (RBC) [Entitic mass] 27.7 pg Normal 27.0-33.0 [facility] Comment on above: Performed By: #### 5 , 175 #### [facility] of [address], [address] [place] [address] Telecommunications Analyst: Ben Powell MD MCHC (RBC) [Mass/Vol] 32.3 [...] 5 , 175 #### [facility] of [address], [address] [place] [address] Telecommunications Analyst: Ben Powell MD MCV (RBC) [Entitic vol] 85.9 fL Normal 80.0-100.0 [facility] Comment on above: Performed By: #### 5 , 175 #### [facility] [address], [address] [place] [address] Telecommunications Analyst: Ben Powell MD Platelet mean volume (Bld) [Entitic vol] 9.0 fL Normal 7.5-12.5 [facility] Comment on above: Performed By: #### 5 616, 1759 #### [facility] of [address], [address] [place] [address] Telecommunications Analyst: Ben Powell MD Platelets (Bld) [#/Vol] 439 10*3/uL High 140-400 [facility] Comment on above: Performed By: #### 5 616, 1759 #### [facility] of [address], [address] [place] [address] Telecommunications Analyst: Ben Powell MD RBC (Bld) [#/Vol] 4.40 10*6/uL Normal 3.80-5.10 [facility] Comment on above: Performed By: #### 5 , 175 #### [facility] of [address], [address] [place] [address] Telecommunications Analyst: Ben Powell MD WBC (Bld) [#/Vol] 7.3 10*3/uL Normal 3.8-10.8 [facility] Comment on above: Performed By: #### 5 556, 175 #### [facility] of [address], [address] [place] [address] Telecommunications Analyst: Ben Powell MD IRON, TIBC AND FERRITIN [facility] 10-30-2024 % SATURATION 11 % (calc) Low 16-45 [facility] Comment on above: Order Comment: FASTI NG:UNKNOWN FASTING: UNKNOWN Performed By: #### 5 39, 175 #### [facility] of [address], [address] [place] [address] Telecommunications Analyst: Ben Powell MD Ferritin [Mass/Vol] 8 ng/mL Low 16-154 [facility] Comment on above: Order Comment: FASTI NG:UNKNOWN FASTING: UNKNOWN Performed By: #### 5 97, 175 #### [facility] of [address], [address] [place] [address] Telecommunications Analyst: Ben Powell MD IRON BINDING CAPACITY 443 mcg/dL (calc) Normal 250-450 [facility] Comment on above: Order Comment: FASTI NG:UNKNOWN FASTING: UNKNOWN Performed By: #### 5 076, 1759 #### [facility] [address], [address] [place] [address] Telecommunications Analyst: Ben Powell MD IRON, TOTAL 47 mcg/dL Normal 40-190 [facility] Comment on above: Order Comment: FASTI NG:UNKNOWN FASTING: UNKNOWN Performed By: #### 5 986, 1759 #### [facility] [address], [address] [place] [address] Telecommunications Analyst: Ben Powell MD ABORH VERIFICATIONon 025 ABO and Rh group Nom (Bld) Blood group A Rh(D) positive [facility] ABO and Rh group Nom (Bld) ABO/Rh Verification [facility] Comment on above: Result Comment: Porsha ent's ABO/Rh is verified. CBC WITH AUTO DIFFERENTIALon 09-16-2024 AUTO NRBC 0.0 % [facility] Comment on above: Performed By: #### L [id number] #### [facility] [address] [place], [place] [address] Jesus Camilo M.D. [id number] AUTO NRBC ABS COUNT 0.00 K/mcL Normal 0.00-0.00 [facility] Comment on above: Performed By: #### L [id number] #### [facility] [address] [place], [place] [address] Jesus Camilo M.D. [id number] BASOPHILS ABSOLUTE COUNT 0.09 K/mcL Normal 0.00-0.30 [facility] Comment on above: Performed By: #### L [id number] #### [facility] [address] [place], [place] [address] Jesus Camilo M.D. [id number] Basophils/100 WBC (Bld) 0.8 % [facility] Comment on above: Performed By: #### L [id number] #### [facility] [address] [place], [place] [address] Jesus Camilo M.D. [id number] Eosinophils (Bld) [#/Vol] 0.15 10*3/uL Normal 0.00-0.50 [facility] Comment on above: Performed By: #### L [id number] #### LAB [address] [place] [address] Jesus Camilo M.D. [id number] Eosinophils/100 WBC (Bld) 1.3 % Normal [facility] Comment on above: Performed By: #### L [id number] #### LAB [address] [place] [address] Jesus Camilo M.D. [id number] Erythrocyte distribution width (RBC) [Ratio] 13.3 % Normal 11.6-14.8 [facility] Comment on above: Performed By: #### L [id number] #### LAB [address] [place] [address] Jesus Camilo M.D. [id number] Hematocrit (Bld) [Volume fraction] 37.0 % Normal 36.0-46.0 [facility] Comment on above: Performed By: #### L [id number] #### LAB [address] [place] [address] Jesus Camilo M.D. [id number] Hemoglobin (Bld) [Mass/Vol] 11.8 g/dL Low 12.0-16.0 [facility] Comment on above: Performed By: #### L [id number] #### LAB [address] [place] [address] Jesus Camilo M.D. [id number] IG ABSOLUTE 0.06 K/mcL Normal 0.00-0.30 [facility] Comment on above: Performed By: #### L [id number] #### LAB [address] [place] [address] Jesus Camilo M.D. [id number] IG PERCENT 0.50 % Normal [facility] Comment on above: Result Comment: The IG parameter is the percentage of metamyelocytes, myelocytes and promyelocytes. An immature granulocyte count (IG) of 1% or more suggests the possibility of infection, an IG count of 3% is very likely related to an infection. Performed By: #### L [id number] #### LAB [address] [place] [address] Jesus Camilo M.D. [id number] Lymphocytes (Bld) [#/Vol] 2.16 10*3/uL Normal 0.90-4.00 [facility] Comment on above: Performed By: #### L [id number] #### LAB [address] [place] [address] Jesus Camilo M.D. [id number] Lymphocytes/100 WBC (Bld) 19.0 % Normal [facility] Comment on above: Performed By: #### L [id number] #### LAB [address] [place] [address] Jesus Camilo M.D. [id number] MCH (RBC) [Entitic mass] 27.4 pg Normal 26.0-34.0 [facility] Comment on above: Performed By: #### L [id number] #### LAB [address] [place] [address] Jesus Camilo M.D. [id number] MCV (RBC) [Entitic vol] 85.8 fL Normal 80.0-100.0 [facility] Comment on above: Performed By: #### L [id number] #### LAB [address] [place] [address] Jesus Camilo M.D. [id number] MEAN CORPUSCULAR HEMOGLOBIN CONC 31.9 g/dL Normal 31.0-37.0 [facility] Comment on above: Performed By: #### L [id number] #### LAB [address] [place] [address] Jesus Camilo M.D. [id number] Monocytes (Bld) [#/Vol] 0.61 10*3/uL Normal 0.30-0.90 [facility] Comment on above: Performed By: #### L [id number] #### LAB [address] [place] [address] Jesus Camilo M.D. [id number] Monocytes/100 WBC (Bld) 5.4 % Normal [facility] Comment on above: Performed By: #### L [id number] #### LAB [address] [place] [address] Jesus Camilo M.D. [id number] NEUTROPHILS ABSOLUTE COUNT 8.30 K/mcL High 1.70-7.00 [facility] Comment on above: Performed By: #### L [id number] #### [facility] [address] [place] [address] Jesus Camilo M.D. [id number] Neutrophils/100 WBC (Bld) 73.0 % Normal [facility] Comment on above: Performed By: #### L [id number] #### LAB [address] [place] [address] Jesus Camilo M.D. [id number] Platelet mean volume (Bld) [Entitic vol] 8.5 fL Low 9.4-12.4 [facility] Comment on above: Performed By: #### L [id number] #### [facility] [address] [place] [address] Jesus Camilo M.D. [id number] Platelets (Bld) [#/Vol] 377 10*3/uL Normal 150-400 [facility] Comment on above: Performed By: #### L [id number] #### LAB [address] [place] [address] Jesus Camilo M.D. [id number] RBC (Bld) [#/Vol] 4.31 10*6/uL Normal 4.00-5.20 [facility] Comment on above: Performed By: #### L [id number] #### [facility] [address] [place] [address] Jesus Camilo M.D. [id number] WBC (Bld) [#/Vol] 11.37 10*3/uL High 4.50-11.00 [facility] Comment on above: Performed By: #### L [id number] #### [facility] [address] [place] [address] Jesus Camilo M.D. [id number] AUTO NRBC 0.0 % Normal [facility] Comment on above: Performed By: #### L [id number] #### LAB [address] [place] [address] Jesus Camilo M.D. [id number] AUTO NRBC ABS COUNT 0.00 K/mcL Normal 0.00-0.00 [facility] Comment on above: Performed By: #### L [id number] #### LAB [address] [place] [address] Jesus Camilo M.D. [id number] BASOPHILS ABSOLUTE COUNT 0.08 K/mcL Normal 0.00-0.30 [facility] Comment on above: Performed By: #### L [id number] #### LAB [address] [place] [address] Jesus Camilo M.D. [id number] Basophils/100 WBC (Bld) 0.7 % Normal [facility] Comment on above: Performed By: #### L [id number] #### LAB [address] [place] [address] Jesus Camilo M.D. [id number] Eosinophils (Bld) [#/Vol] 0.22 10*3/uL Normal 0.00-0.50 [facility] Comment on above: Performed By: #### L [id number] #### LAB [address] [place] [address] Jesus Camilo M.D. [id number] Eosinophils/100 WBC (Bld) 2.0 % Normal [facility] Comment on above: Performed By: #### L [id number] #### LAB [address] [place] [address] Jesus Camilo M.D. [id number] Erythrocyte distribution width (RBC) [Ratio] 13.5 % Normal 11.6-14.8 [facility] Comment on above: Performed By: #### L [id number] #### LAB [address] [place] [address] Jesus Camilo M.D. [id number] Hematocrit (Bld) [Volume fraction] 39.0 % Normal 36.0-46.0 [facility] Comment on above: Performed By: #### L [id number] #### LAB [address] [place] [address] Jesus Camilo M.D. [id number] Hemoglobin (Bld) [Mass/Vol] 12.3 g/dL Normal 12.0-16.0 [facility] Comment on above: Performed By: #### L [id number] #### LAB [address] [place] [address] Jesus Camilo M.D. [id number] IG ABSOLUTE 0.05 K/mcL Normal 0.00-0.30 [facility] Comment on above: Performed By: #### L [id number] #### LAB [address] [place] [address] Jesus Camilo M.D. [id number] IG PERCENT 0.50 % [facility] Comment on above: Result Comment: The IG parameter is the percentage of metamyelocytes, myelocytes and promyelocytes. An immature granulocyte count (IG) of 1% or more suggests the possibility of infection, an IG count of 3% is very likely related to an infection. Performed By: #### L [id number] #### LAB [address] [place] [address] Jesus Camilo M.D. [id number] Lymphocytes (Bld) [#/Vol] 2.35 10*3/uL Normal 0.90-4.00 [facility] Comment on above: Performed By: #### L [id number] #### LAB [address] [place] [address] Jesus Camilo M.D. [id number] Lymphocytes/100 WBC (Bld) 21.4 % [facility] Comment on above: Performed By: #### L [id number] #### LAB [address] [place] [address] Jesus Camilo M.D. [id number] MCH (RBC) [Entitic mass] 27.3 pg Normal 26.0-34.0 [facility] Comment on above: Performed By: #### L [id number] #### [facility] [address] [place] [address] Jesus Camilo M.D. [id number] MCV (RBC) [Entitic vol] 86.5 fL Normal 80.0-100.0 [facility] Comment on above: Performed By: #### L [id number] #### LAB [address] [place] [address] Jesus Camilo M.D. [id number] MEAN CORPUSCULAR HEMOGLOBIN CONC 31.5 g/dL Normal 31.0-37.0 [facility] Comment on above: Performed By: #### L [id number] #### [facility] [address] [place] [address] Jesus Camilo M.D. [id number] Monocytes (Bld) [#/Vol] 0.66 10*3/uL Normal 0.30-0.90 [facility] Comment on above: Performed By: #### L [id number] #### [facility] [address] [place] [address] Jesus Camilo M.D. [id number] Monocytes/100 WBC (Bld) 6.0 % Normal [facility] Comment on above: Performed By: #### L [id number] #### LAB [address] [place] [address] Jesus Camilo M.D. [id number] NEUTROPHILS ABSOLUTE COUNT 7.61 K/mcL High 1.70-7.00 [facility] Comment on above: Performed By: #### L [id number] #### [facility] [address] [place] [address] Jesus Camilo M.D. [id number] Neutrophils/100 WBC (Bld) 69.4 % Normal [facility] Comment on above: Performed By: #### L [id number] #### [facility] [address] [place] [address] Jesus Camilo M.D. [id number] Platelet mean volume (Bld) [Entitic vol] 8.5 fL Low 9.4-12.4 [facility] Comment on above: Performed By: #### L [id number] #### [facility] [address] [place] [address] Jesus Camilo M.D. [id number] Platelets (Bld) [#/Vol] 396 10*3/uL Normal 150-400 [facility] Comment on above: Performed By: #### L [id number] #### [facility] [address] [place] [address] Jesus Camilo M.D. [id number] RBC (Bld) [#/Vol] 4.51 10*6/uL Normal 4.00-5.20 [facility] Comment on above: Performed By: #### L [id number] #### [facility] [address] [place] [address] eJsus Camilo M.D. [id number] WBC (Bld) [#/Vol] 10.97 10*3/uL Normal 4.50-11.00 [facility] Comment on above: Performed By: #### L [id number] #### LAB [address] [place] [address] Jesus Camilo M.D. [id number] COMPREHENSIVE METABOLIC PANE Craig 09-16-2024 Albumin [Mass/Vol] 4.2 g/dL Normal 3.2-5.2 [facility] Comment on above: Order Comment: [facility] has implemented the eGFR calculation approach that does not have a coefficient for race that conforms to the NKF-ASN Task Force Recommendations. Performed By: #### 4 6126 ####[facility] LAB [address] [place] [address] Jesus Camilo M.D. [id number] ALP [Catalytic activity/Vol] 58 U/L Normal 40-140 [facility] Comment on above: Order Comment: [facility] has implemented the eGFR calculation approach that does not have a coefficient for race that conforms to the NKF-ASN Task Force Recommendations. Performed By: #### 4 6126 ####[facility] LAB [address] [place] [address] Jessu Camilo M.D. [id number] ALT [Catalytic activity/Vol] 16 U/L Normal 0-35 U/L [facility] Comment on above: Order Comment: [facility] has implemented the eGFR calculation approach that does not have a coefficient for race that conforms to the NKF-ASN Task Force Recommendations. Performed By: #### 4 6126 #### LAB [address] [place] [address] Jesus Camilo M.D. [id number] Anion gap [Moles/Vol] 17 mmol/L Normal 10-20 [facility] Comment on above: Order Comment: [facility] has implemented the eGFR calculation approach that does not have a coefficient for race that conforms to the NKF-ASN Task Force Recommendations. Performed By: #### 4 6126 #### LAB [address] [place] [address] Jesus Camilo M.D. [id number] AST [Catalytic activity/Vol] 16 U/L Normal 0-35 U/L [facility] Comment on above: Order Comment: [facility] has implemented the eGFR calculation approach that does not have a coefficient for race that conforms to the NKF-ASN Task Force Recommendations. Performed By: #### 4 6126 #### LAB [address] [place] [address] Jesus Camilo M.D. [id number] BILIRUBIN TOTAL < Normal 0.0-1.3 [facility] Comment on above: Order Comment: [facility] has implemented the eGFR calculation approach that does not have a coefficient for race that conforms to the NKF-ASN Task Force Recommendations. Performed By: #### 4 6126 #### LAB [address] [place] [address] Jesus Camilo M.D. [id number] Calcium [Mass/Vol] 9.4 mg/dL Normal 8.4-10.2 [facility] Comment on above: Order Comment: [facility] has implemented the eGFR calculation approach that does not have a coefficient for race that conforms to the NKF-ASN Task Force Recommendations. Performed By: #### 4 6126 #### LAB [address] [place] [address] Jesus Camilo M.D. [id number] Chloride [Moles/Vol] 104 mmol/L Normal 98-108 [facility] Comment on above: Order Comment: [facility] has implemented the eGFR calculation approach that does not have a coefficient for race that conforms to the NKF-ASN Task Force Recommendations. Performed By: #### 4 6126 #### LAB [address] [place] [address] Jesus Camilo M.D. [id number] Creatinine [Mass/Vol] 0.78 mg/dL Normal 0.40-1.10 [facility] Comment on above: Order Comment: [facility] has implemented the eGFR calculation approach that does not have a coefficient for race that conforms to the NKF-ASN Task Force Recommendations. Performed By: #### 4 6126 #### LAB [address] [place] [address] Jesus Camilo M.D. [id number] EGFR 100 mL/min/1.73 m2 Normal >=60 [facility] Comment on above: Order Comment: [facility] has implemented the eGFR calculation approach that does not have a coefficient for race that conforms to the NKF-ASN Task Force Recommendations. Result Comment: Yissel mated GFR was calculated using the 2020 CKD-EPI creatinine equation. Performed By: #### 4 6126 #### LAB [address] [place] [address] Jesus Camilo M.D. [id number] Glucose [Mass/Vol] 104 mg/dL High 65-99 [facility] Comment on above: Order Comment: [facility] has implemented the eGFR calculation approach that does not have a coefficient for race that conforms to the NKF-ASN Task Force Recommendations. Performed By: #### 4 6126 #### LAB [address] [address] Jesus Camilo M.D. [id number] HCO3 (Bld) [Moles/Vol] 20 mmol/L Low 21-32 [facility] Comment on above: Order Comment: [facility] has implemented the eGFR calculation approach that does not have a coefficient for race that conforms to the NKF-ASN Task Force Recommendations. Performed By: #### 4 6126 #### LAB [address] [address] Jesus Camilo M.D. [id number] Potassium [Moles/Vol] 3.8 mmol/L Normal 3.5-5.1 [facility] Comment on above: Order Comment: [facility] has implemented the eGFR calculation approach that does not have a coefficient for race that conforms to the NKF-ASN Task Force Recommendations. Performed By: #### 4 6126 #### LAB [address] [address] Jesus Camilo M.D. [id number] Protein [Mass/Vol] 7.1 g/dL Normal 6.0-8.0 [facility] Comment on above: Order Comment: [facility] has implemented the eGFR calculation approach that does not have a coefficient for race that conforms to the NKF-ASN Task Force Recommendations. Performed By: #### 4 6126 #### LAB [address] [address] Jesus Camilo M.D. [id number] Sodium [Moles/Vol] 137 mmol/L Normal 135-145 [facility] Comment on above: Order Comment: [facility] has implemented the eGFR calculation approach that does not have a coefficient for race that conforms to the NKF-ASN Task Force Recommendations. Performed By: #### 4 6126 ####[facility] LAB [address] [address] Jesus Camilo M.D. [id number] Urea nitrogen [Mass/Vol] 16 mg/dL Normal 8-25 [facility] Comment on above: Order Comment: [facility] has implemented the eGFR calculation approach that does not have a coefficient for race that conforms to the NKF-ASN Task Force Recommendations. Performed By: #### 4 6126 #### LAB [address] [place], [place] [address] Jesus Camilo M.D. [id number] Urea nitrogen/Creatinine [Mass ratio] 20.5 mg/mg High 10.0-20.0 [facility] Comment on above: Order Comment: [facility] has implemented the eGFR calculation approach that does not have a coefficient for race that conforms to the NKF-ASN Task Force Recommendations. Performed By: #### 4 6126 #### LAB [address] [place], [place] [address] Jesus Camilo M.D. [id number] COVID-19/INFLUENZA A,B MOLEC ULARon 09-16-2024 SARS-CoV-2 (COVID-19) Ab IA Ql SARS-COV-2 (AMINAH) Not Detected INFLUENZA A (AMINAH) Not Detected INFLUENZA B (AMINAH) Not Detected Normal Not Detected [facility] Comment on above: Performed By: #### L [id number] #### LAB [address] [place], [place] [address] Jesus Camilo M.D. [id number] ED Prov Noteon 09-16-2024 ED Prov Note [facility] ED Attending Note: NAME: Alma Ulloa 39 y.o. CSN: [id number] PCP: Odalys Raymond DO History: Chief Complaint: [...] Surgical History: Procedure Laterality Date CHOLECYSTECTOMY 06/2021 [facility]. Hx: Family History Problem Relation [...] All other components within normal limits Narrative: [facility] has implemented the eGFR calculation [...] (*) Leukocyte (more content not included)... Normal [facility] HCG, BLOOD, QUANTITATIVEon 0 09-16-2024 HCG, QUANTITATIVE 2246 mIU/mL High 0-5 [facility] Comment on above: Order Comment: Males and non females: <5 mIU/mLFemales during :3-4 weeks 9-130 mIU/mL4-5 weeks 75-2600 mIU/mL5-6 weeks 850-20,800 mIU/mL6-7 weeks 4000-100,200 mIU/mL7-12 weeks 11,500-289,000 mIU/mL12-16 weeks 18,300-137,000 mIU/mL16-29 weeks 1,400-53,000 mIU/mL29-41 weeks 940-60,000 mIU/mL Performed By: #### 4 5827 ####[address] [place] [address] Jesus Camilo M.D. [id number] TISSUE EXAMon 09-16-2024 TISSUE EXAM Surgical Pathology Report Case: [id number] Authorizing Provider: Letty Galvez MD Collected: 09/16/2024 01:06 PM Ordering Location: [facility] Received: 09/16/2024 01:34 PM Emergency Department Pathologist: [...] 3 cassette(s). JK Gross examination performed at: [facility] - [address] [place] [address] Microscopic examination is performed. Normal [facility] Comment on above: Performed By: #### 4 7015 #### LAB [address] [id number] Jesus Camilo M.D. [id number] TYPE AND SCREENon 09-16-2024 TYPE AND SCREEN ABORH: A Positive AB SCREEN: Negative EXPIRATION DATE: 09/19/2024 23:59 EST Normal [facility] URINALYSISon 09-16-2024 BACTERIA, URINE None Seen Normal None Seen [facility] Comment on above: Order Comment: Micro scopic examination is performed on all urinalysis samples and only positive findings are reported. The test for blood on the chemical analytic portion of urinalysis may also be positive due to hemoglobinuria and myoglobinuria and if red blood cells are present they are quantified by microscopic examination. Performed By: #### 4 6625 #### LAB [address] [id number] Jesus Camilo M.D. [id number] BILIRUBIN, URINE Negative Normal Negative [facility] Comment on above: Order Comment: Micro scopic examination is performed on all urinalysis samples and only positive findings are reported. The test for blood on the chemical analytic portion of urinalysis may also be positive due to hemoglobinuria and myoglobinuria and if red blood cells are present they are quantified by microscopic examination. Performed By: #### 4 6625 #### LAB [address] [id number] Jesus Camilo M.D. [id number] BLOOD, URINE Large Abnormal Negative [facility] Comment on above: Order Comment: Micro scopic examination is performed on all urinalysis samples and only positive findings are reported. The test for blood on the chemical analytic portion of urinalysis may also be positive due to hemoglobinuria and myoglobinuria and if red blood cells are present they are quantified by microscopic examination. Performed By: #### 4 6625 #### LAB [address] [id number] Jesus Camilo M.D. [id number] Clarity (U) Cloudy Abnormal Clear [facility] Comment on above: Order Comment: Micro scopic examination is performed on all urinalysis samples and only positive findings are reported. The test for blood on the chemical analytic portion of urinalysis may also be positive due to hemoglobinuria and myoglobinuria and if red blood cells are present they are quantified by microscopic examination. Performed By: #### 4 6625 #### LAB [address] [address] Jesus Camilo M.D. [id number] Color (U) Red Abnormal Colorless, Yellow [facility] Comment on above: Order Comment: Micro scopic examination is performed on all urinalysis samples and only positive findings are reported. The test for blood on the chemical analytic portion of urinalysis may also be positive due to hemoglobinuria and myoglobinuria and if red blood cells are present they are quantified by microscopic examination. Performed By: #### 4 6625 #### LAB [address] [address] Jesus Camilo M.D. [id number] Glucose Ql (U) Negative Normal Negative [facility] Comment on above: Order Comment: Micro scopic examination is performed on all urinalysis samples and only positive findings are reported. The test for blood on the chemical analytic portion of urinalysis may also be positive due to hemoglobinuria and myoglobinuria and if red blood cells are present they are quantified by microscopic examination. Performed By: #### 4 6625 #### LAB [address] [address] Jesus Camilo M.D. [id number] Ketones Ql (U) Negative Normal Negative [facility] Comment on above: Order Comment: Micro scopic examination is performed on all urinalysis samples and only positive findings are reported. The test for blood on the chemical analytic portion of urinalysis may also be positive due to hemoglobinuria and myoglobinuria and if red blood cells are present they are quantified by microscopic examination. Performed By: #### 4 6625 #### LAB [address] [address] Jesus Camilo M.D. [id number] Leukocyte esterase Test strip Ql (U) Small Abnormal Negative [facility] Comment on above: Order Comment: Micro scopic examination is performed on all urinalysis samples and only positive findings are reported. The test for blood on the chemical analytic portion of urinalysis may also be positive due to hemoglobinuria and myoglobinuria and if red blood cells are present they are quantified by microscopic examination. Performed By: #### 4 6625 #### LAB [address] [address] Jesus Camilo M.D. [id number] NITRITE, URINE Negative Normal Negative [facility] Comment on above: Order Comment: Micro scopic examination is performed on all urinalysis samples and only positive findings are reported. The test for blood on the chemical analytic portion of urinalysis may also be positive due to hemoglobinuria and myoglobinuria and if red blood cells are present they are quantified by microscopic examination. Performed By: #### 4 6625 #### LAB [address] [address] Jesus Camilo M.D. [id number] pH (U) 5.5 [pH] Normal 5.0-7.0 [facility] Comment on above: Order Comment: Micro scopic examination is performed on all urinalysis samples and only positive findings are reported. The test for blood on the chemical analytic portion of urinalysis may also be positive due to hemoglobinuria and myoglobinuria and if red blood cells are present they are quantified by microscopic examination. Performed By: #### 4 6625 #### LAB [address] [address] Jesus Camilo M.D. [id number] Protein (U) [Mass/Vol] 30 mg/dL Abnormal Negative [facility] Comment on above: Order Comment: Micro [...] By: #### 4 6625 #### LAB [address] [address] Jesus Camilo M.D. [id number] RBC, URINE > High 0-3 [facility] Comment on above: Order Comment: Micro scopic examination is performed on all urinalysis samples and only positive findings are reported. The test for blood on the chemical analytic portion of urinalysis may also be positive due to hemoglobinuria and myoglobinuria and if red blood cells are present they are quantified by microscopic examination. Performed By: #### 4 6625 #### LAB [address] [address] Jesus Camilo M.D. [id number] Specific gravity (U) [Rel density] 1.010 Normal 1.005-1.025 [facility] Comment on above: Order Comment: Micro scopic examination is performed on all urinalysis samples and only positive findings are reported. The test for blood on the chemical analytic portion of urinalysis may also be positive due to hemoglobinuria and myoglobinuria and if red blood cells are present they are quantified by microscopic examination. Performed By: #### 4 6625 #### LAB [address] [place] [address] Jesus Camilo M.D. [id number] UROBILINOGEN, URINE <2.0 Normal <2.0 [facility] Comment on above: Order Comment: Micro scopic examination is performed on all urinalysis samples and only positive findings are reported. The test for blood on the chemical analytic portion of urinalysis may also be positive due to hemoglobinuria and myoglobinuria and if red blood cells are present they are quantified by microscopic examination. Performed By: #### 4 6625 #### LAB [address] [place] [address] Jesus Camilo M.D. [id number] WBC LM.HPF (Urine sed) [#/Area] 20 /[HPF] High 0-5 [facility] Comment on above: Order Comment: Micro scopic examination is performed on all urinalysis samples and only positive findings are reported. The test for blood on the chemical analytic portion of urinalysis may also be positive due to hemoglobinuria and myoglobinuria and if red blood cells are present they are quantified by microscopic examination. Performed By: #### 4 6625 #### LAB [address] [place], [place] [address] Jesus Camilo M.D. [id number] OB TRANSVAGINALon 025 US OB TRANSVAGINAL EXAMINATION: [...] on ThuSep 16, 2024 7:54:33 AM EDT [facility] Comment on above: Order Comment: Injur y/Trauma or Illness?:Illness/Other How long have you had these symptoms (acute/chronic)?:Acute Reason for exam?:abd cramping and heavy bleeding; 8 weeks History of cancer?:unknown Surgeries, chemotherapy, or radiation?:unknown Type of Exam?:Initial Additional signs and symptoms?:none HCG, TOTAL, QNon 09-08-2024 HCG Qn 3581 m[IU]/mL [employer] [employer] Comment on above: Result Comment: Veri fied by repeat analysis. Reference Range Non or premenopausal <5 Postmenopausal <10 Values from different assay methods may vary. The use of this assay to monitor or to diagnose patients with cancer or any condition unrelated to has not been cleared or approved by the FDA or the commercial lines assistant of the assay. Performed By: #### 8 396 #### [facility] [place] [id number] [facility], [address] [place] [address] Telecommunications Analyst: Ben Powell MD MM SCREENING KENROY BILATERALo [...] sent to the patient regarding the results. [facility], along with the National Comprehensive Cancer Network and the [place] [employer] recommend annual screening mammograms for women age 40 and older. Workstation ID: [id number] Dictated by: ZHAO MARSH on ThuApr 01, 2024 2:38:54 PM EST Transcribed by: ZHAO MARSH on ThuApr 01, 2024 2:38:54 PM EST Finalized by: ZHAO MARSH on ThuApr 01, 2024 2:38:54 PM EST Normal [facility] CHLAMYDIA/GONORRHOEAE AMPLIF IED RNAon 01-19-2024 CHLAMYDIA/GONORRHOEA E AMPLIFIED RNA CHLAMYDIA TRACHOMATIS AMPLIFIED RNA NEGATIVE NEISSERIA GONORRHOEAE AMPLIFIED RNA NEGATIVE Normal Negative [facility] Comment on above: Performed By: #### L [id number] #### [facility] [address] Wes Sargent M.D. [id number] THINPREP PAP SMEARon 024 THINPREP PAP SMEAR Gynecologic Cytology Report Case: [id number] Authorizing Provider: Claudy Cortez, Collected: 01/19/2024 03:42 PM Ordering Location: [facility] Received: 01/26/2024 08:09 AM Obstetrics [...] from every slide are reviewed by a civil engineering teacher. Specimen processing and Primary Screening performed at: [place] [address] HPV 16 : Negative HPV 18 : [...] for patient management. HPV testing performed at: [place] [id number] 12/27/2023 Normal [facility] Comment on above: Performed By: #### 4 6974 #### [facility] [address] [place] [address] Wes Sargent M.D. [id number] TRICHOMONAS VAGINALIS AMPLIF IED RNAon 01-19-2024 TRICHOMONAS VAGINALIS AMPLIFIED RNA Negative Normal Negative [facility] Comment on above: Performed By: #### L [id number] #### [address] [place], [place] [address] Wes Sargent M.D. [id number] Blood Glucose , Office ([phone])Ordered By: Adalid Garrison on 10-15-2022 Glucose Glucometer (BldC) [Moles/Vol] 93 1 Normal [facility]; [facility] Work Phone: CALCIFIDIOL ([phone]) VIT D 25 Ordered By: Beam Doffer on 10-15-2022 25-hydroxyvitamin D [Mass/Vol] 68.7 ng/mL Normal 30.0-100.0 [facility]; [facility] Work Phone: Comment on above: Vitamin D deficiency has been defined by the [place] ofMedicine and an Endocrine Society practice guideline as alevel of serum 25-OH vitamin D less than 20 ng/mL (1,2).The Endocrine Society went on to further define vitamin Dinsufficiency as a level between 21 and 29 ng/mL (2).1. IOM ([place] of [employer]). 2010. Dietary reference intakes for calcium and D. [place]: The National Academies Press.2. Henok MF, Sara [place], Jessica PHILLIP, et al. Evaluation, treatment, and prevention of vitamin D deficiency: an Endocrine Society clinical practice guideline. JCEM. 2010; 96(7):1911-30. PATIENT WAS FASTINGP ERFORMED BY: [facility] [id number] CBC W/AUTO DIFF WBC (98157)O rdered By: Beam Doffer on 10-15-2022 Basophils (Bld) [#/Vol] 0.1 10*3/uL Normal 0.0-0.2 [facility]; [facility] Work Phone: Comment on above: PATIENT WAS FASTINGP ERFORMED BY: [facility] [id number] Basophils/100 WBC (Bld) 1 % Normal [facility]; [facility] Work Phone: Comment on above: PATIENT WAS FASTINGP ERFORMED BY: [facility] [id number] Eosinophils (Bld) [#/Vol] 0.1 10*3/uL Normal 0.0-0.4 [facility]; [facility] Work Phone: Comment on above: PATIENT WAS FASTINGP ERFORMED BY: NIM[facility] Shantellrosalinda Phalmz[address]Formerly [facility], [facility]in [place] [id number] Eosinophils/100 WBC (Bld) 1 % Normal [facility]; [facility] Work Phone: Comment on above: PATIENT WAS FASTINGP ERFORMED BY: [facility]IM[facility] Labco [address] [facility] [id number] Erythrocyte distribution width (RBC) [Ratio] 13.3 % Normal 11.7-15.4 [facility]; [facility] Work Phone: Comment on above: PATIENT WAS FASTINGP ERFORMED BY: [facility] [address] [id number] Hematocrit (Bld) [Volume fraction] 42.6 % Normal 34.0-46.6 [facility]; [facility] Work Phone: Comment on above: PATIENT WAS FASTINGP ERFORMED BY: [facility] Azqnwi9006 [facility] [id number] Hemoglobin (Bld) [Mass/Vol] 13.7 g/dL Normal 11.1-15.9 [facility]; [facility] Work Phone: Comment on above: PATIENT WAS FASTINGP ERFORMED BY: Lab[address] [id number] [facility] [id number] Immature granulocytes (Bld) [#/Vol] 0.0 10*3/uL Normal 0.0-0.1 [facility]; [facility] Work Phone: Comment on above: PATIENT WAS FASTINGP ERFORMED BY: [facility] Labco Hboaxz5159 [address] [facility] [id number] Immature granulocytes/100 WBC (Bld) 0 % Normal [facility]; [facility] Work Phone: Comment on above: PATIENT WAS FASTINGP ERFORMED BY: [facility] [facility] [place] [id number] Lymphocytes (Bld) [#/Vol] 2.3 10*3/uL Normal 0.7-3.1 [facility]; [facility] Work Phone: Comment on above: PATIENT WAS FASTINGP ERFORMED BY: [facility] Yhyqbw7490 [facility] [place] [id number] Lymphocytes/100 WBC (Bld) 25 % Normal [facility]; [facility] Work Phone: Comment on above: PATIENT WAS FASTINGP ERFORMED BY: [facility] [facility] [place] [id number] MCH (RBC) [Entitic mass] 27.7 pg Normal 26.6-33.0 [facility]; [facility] Work Phone: Comment on above: PATIENT WAS FASTINGP ERFORMED BY: [place] [id number] [facility] [id number] MCHC (RBC) [Mass/Vol] 32.2 g/dL Normal 31.5-35.7 [facility]; [facility] Work Phone: Comment on above: PATIENT WAS FASTINGP ERFORMED BY: [facility] Vczshf7447 [facility] [place] [id number] MCV (RBC) [Entitic vol] 86 fL Normal 79-97 [facility]; [facility] Work Phone: Comment on above: PATIENT WAS FASTINGP ERFORMED BY: [facility] [facility] [place] [id number] Monocytes (Bld) [#/Vol] 0.4 10*3/uL Normal 0.1-0.9 [facility]; [facility] Work Phone: Comment on above: PATIENT WAS FASTINGP ERFORMED BY: [facility] Acxbnk[address] [facility] [place] [id number] Monocytes/100 WBC (Bld) 5 % Normal [facility]; [facility] Work Phone: Comment on above: PATIENT WAS FASTINGP ERFORMED BY: [facility] Wqcdng5118 [address] RoadDublin [place] [id number] Neutrophils (Bld) [#/Vol] 6.1 10*3/uL Normal 1.4-7.0 [facility]; [facility] Work Phone: Comment on above: PATIENT WAS FASTINGP ERFORMED BY: [facility] Mbubcz6417 Meza RoadDublin [place] [id number] Neutrophils/100 WBC (Bld) 68 % Normal [facility]; [facility] Work Phone: Comment on above: PATIENT WAS FASTINGP ERFORMED BY: [facility] Obmzhc7216 Emza RoadDublin [place] [id number] Platelets (Bld) [#/Vol] 477 10*3/uL Abnormal 150-450 [facility]; [facility] Work Phone: Comment on above: PATIENT WAS FASTINGP ERFORMED BY: [facility] Oqaacy4396 Mzea RoadDublin [place] [id number] RBC (Bld) [#/Vol] 4.95 10*6/uL Normal 3.77-5.28 Compr ehensive [facility]; [facility] Work Phone: Comment on above: PATIENT WAS FASTINGP ERFORMED BY: [facility] Dnsjhw8945 Meza RoadDublin [place] [id number] WBC (Bld) [#/Vol] 9.0 10*3/uL Normal 3.4-10.8 Compre [facility]; [facility] Work Phone: Comment on above: PATIENT WAS FASTINGP ERFORMED BY: [facility] Daptpd6737 Me[address] RoadDublin [place] [id number] HgA1C , Office ([id number])Ordere d By: Adalid Garrison on 10-15-2022 HbA1c (Bld) [Mass fraction] 5.5 % Normal 4.6 - 7.1 [facility]; [facility] Work Phone: LIPID PANEL ([id number])Ordered B y: Beam Doffer on 10-15-2022 Cholesterol [Mass/Vol] 155 mg/dL Normal 100-199 [facility]; [facility] Work Phone: Comment on above: PATIENT WAS FASTINGP ERFORMED BY: NIMCO Labcoderic Mbqqqs[address]678 [address] [facility] [place] [id number] Cholesterol in HDL [Mass/Vol] 38 mg/dL Abnormal [facility]; [facility] Work Phone: Comment on above: PATIENT WAS FASTINGP ERFORMED BY: NIMCO [facility] Kbskui[address] [facility] [place] [id number] Triglyceride [Mass/Vol] 170 mg/dL Abnormal 0-149 [facility]; [facility] Work Phone: Comment on above: PATIENT WAS FASTINGP ERFORMED BY: NIMCO Labcoderic Hybghd7856 [address] [facility] [place] [id number] LIPID PANEL (06756) 29 mg/dL Normal 5-40 [facility]; [facility] Work Phone: Comment on above: PATIENT WAS FASTINGP ERFORMED BY: NIMCO Labcoderic Oecgqt3269 [address] [facility] [id number] LIPID PANEL (85373) 88 mg/dL Normal 0-99 [facility]; [facility] Work Phone: Comment on above: PATIENT WAS FASTINGP ERFORMED BY: [facility]IM[facility] Labcoderic HayesYvjava6937 [address] [facility] [place] [id number] LIPID PANEL (16882) 2.3 {ratio} Normal 0.0-3.2 [facility]; [facility] Work Phone: Comment on above: LDL/HDL Ratio Men Wo men 1/2 Avg.Risk 1.0 1.5 Avg.Risk 3.6 3.2 2X Avg.Risk 6.2 5.0 3X Avg.Risk 8.0 6.1 PATIENT WAS FASTINGP ERFORMED BY: NIM[facility] Lthokw[address]98 [address] [facility] [place] [id number] METABOLIC PANEL, COMPREHENSI VE (30996)Ordered By: Beam Doffer on 10-15-2022 Albumin [Mass/Vol] 4.5 g/dL Normal 3.8-4.8 [facility]; [facility] Work Phone: Comment on above: PATIENT WAS FASTINGP ERFORMED BY: CB [facility] Jqycsx4558 [address] RoadDublin [place] [id number] Albumin/Globulin [Mass ratio] 1.6 {ratio} Normal 1.2-2.2 [facility]; [facility] Work Phone: Comment on above: PATIENT WAS FASTINGP ERFORMED BY: CB [facility] Eaaqif5117 [address] RoadDublin [place] [id number] ALP [Catalytic activity/Vol] 85 U/L Normal 44-121 [facility]; [facility] Work Phone: Comment on above: PATIENT WAS FASTINGP ERFORMED BY: CB [facility] Pgvczu5584 [address]za RoadDublin [place] [id number] ALT [Catalytic activity/Vol] 26 U/L Normal 0-32 [facility]; [facility] Work Phone: Comment on above: PATIENT WAS FASTINGP ERFORMED BY: CB [facility] Aujvoj8060 [address] RoadDublin [place] [id number] AST [Catalytic activity/Vol] 15 U/L Normal 0-40 [facility]; [facility] Work Phone: Comment on above: PATIENT WAS FASTINGP ERFORMED BY: CB [facility] Izlxbe0232 [address] RoadDublin [place] [id number] Bilirubin [Mass/Vol] 0.4 mg/dL Normal 0.0-1.2 [facility]; [facility] Internal Medicine Work Phone: Comment on above: PATIENT WAS FASTINGP ERFORMED BY: CB [facility] Djxlww2836 [address] RoadDublin [place] [id number] Calcium [Mass/Vol] 9.9 mg/dL Normal 8.7-10.2 [facility] Internal Medicine; [facility] Internal Medicine Work Phone: Comment on above: PATIENT WAS FASTINGP ERFORMED BY: CB [facility] Rcweea0438 [address] RoadDublin [place] [id number] Chloride [Moles/Vol] 102 mmol/L Normal 96-106 Comp rehensive Internal Medicine; [facility] Work Phone: Comment on above: PATIENT WAS FASTINGP ERFORMED BY: NIMCO Labsharadderic Tjwqtv9248 [address] [facility] [place] [id number] CO2 [Moles/Vol] 23 mmol/L Normal 20-29 Comprehen sive Internal Medicine; [facility] Work Phone: Comment on above: PATIENT WAS FASTINGP ERFORMED BY: INMCO Labcoderic Lnqjtc4861 [address] [facility] [id number] Creatinine [Mass/Vol] 0.80 mg/dL Normal 0.57-1.00 [facility]; [facility] Work Phone: Comment on above: PATIENT WAS FASTINGP ERFORMED BY: NIMCO Labrosalinda Thwbfb7913 [address] [facility] [id number] GFR/1.73 sq M.predicted among non-blacks MDRD (S/P/Bld) [Vol rate/Area] 98 mL/min/{1.73_m2} Normal Comprehensiv e Internal Medicine; [facility] Work Phone: Comment on above: PATIENT WAS FASTINGP ERFORMED BY: NIMCO Labrosalinda Jmbyyj6834 [address] [facility] [id number] Globulin (S) [Mass/Vol] 2.8 g/dL Normal 1.5-4.5 [facility]; [facility] Work Phone: Comment on above: PATIENT WAS FASTINGP ERFORMED BY: NIMCO Labrosalinda HayesVsjwcv9818 [address] [facility] [id number] Glucose [Mass/Vol] 83 mg/dL Normal 70-99 Compre [facility]; [facility] Work Phone: Comment on above: PATIENT WAS FASTINGP ERFORMED BY: NIMCO Labcoderic Phsota4352 [address] [facility] [id number] Potassium [Moles/Vol] 4.6 mmol/L Normal 3.5-5.2 [facility]; [facility] Work Phone: Comment on above: PATIENT WAS FASTINGP ERFORMED BY: NIMCO Labco Xvydmx7701 [address] RoadDublin [place] [id number] Protein [Mass/Vol] 7.3 g/dL Normal 6.0-8.5 [facility]; [facility] Work Phone: Comment on above: PATIENT WAS FASTINGP ERFORMED BY: NIMCO [facility] Vdwmxf3268 [address] RoadDublin [place] [id number] Sodium [Moles/Vol] 139 mmol/L Normal 134-144 [facility] Internal [facility]; [facility] Work Phone: Comment on above: PATIENT WAS FASTINGP ERFORMED BY: NIMCO [facility] Cdvnkf6805 [address] RoadDublin [place] [id number] Urea nitrogen [Mass/Vol] 18 mg/dL Normal 6-20 [facility]; [facility] Work Phone: Comment on above: PATIENT WAS FASTINGP ERFORMED BY: NIMCO [facility] Ksaitd5313 [address] RoadDublin [place] [id number] Urea nitrogen/Creatinine [Mass ratio] 23 mg/mg Normal 9-23 [facility]; [facility] Work Phone: Comment on above: PATIENT WAS FASTINGP ERFORMED BY: NIMCO [facility] Vqgtdg7377 [address] RoadDublin [place] [id number] MICROALBUMINOrdered By: Syst em Pug Machine Operator on 10-15-2022 Albumin DL <= 20 mg/L (U) [Mass/Vol] 6.0 ug/mL Normal Comprehensiv e [facility] Medicine; [facility] Work Phone: Comment on above: PATIENT WAS FASTINGP ERFORMED BY: CB [facility] Sinuls7871 [address] RoadDublin [place] [id number] Albumin/Creatinine (U) [Mass ratio] 3 {mg/g_creat} Normal 0-29 [facility]; [facility] Work Phone: Comment on above: Normal: 0 - 29 Moder ately increased: 30 - 300 Severely increased: >300 PATIENT WAS FASTINGP ERFORMED BY: CB [facility] Ytumsi3974 [address] RoadDublin [place] [id number] Creatinine (U) [Mass/Vol] 185.5 mg/dL Normal [facility]; [facility] Work Phone: Comment on above: PATIENT WAS FASTINGP ERFORMED BY: NIMCO Hayeslin6370 [address]Dublin [place] [id number] TSH ([id number])Ordered By: [employer] m Pug Machine Operator on 10-15-2022 TSH Qn 0.759 {uIU/mL} Normal 0.450-4.500 Comprehen sive Internal Medicine; [facility] Work Phone: Comment on above: PATIENT WAS FASTINGP ERFORMED BY: NIMCO Soto6370 [address] RoadDublin [place] [id number] URINALYSIS, W/ MICRO ([id number]) Ordered By: Beam Doffer on 10-15-2022 Appearance (U) Clear Normal Comprehens alex Internal Medicine; [facility] Work Phone: Comment on above: PATIENT WAS FASTINGP ERFORMED BY: NIMCO Soto6370 [address] RoadDublin [place] [id number] Bilirubin Ql (U) Negative Normal Comprehe nsive Internal Medicine; [facility] Work Phone: Comment on above: PATIENT WAS FASTINGP ERFORMED BY: NIMCO Soto6370 [address]Dublin [place] [id number] Color (U) Yellow Normal [facility]; [facility] Work Phone: Comment on above: PATIENT WAS FASTINGP ERFORMED BY: NIMCO Hayeslin6370 [address]Dublin [place] [id number] Glucose Ql (U) Negative Normal Comprehens alex Internal Medicine; [facility] Work Phone: Comment on above: PATIENT WAS FASTINGP ERFORMED BY: NIMCO Labrosalinda HayesVaxvhx6888 [address] RoadDublin [place] [id number] Hemoglobin Ql (U) Negative Normal Compreh ensive Internal Medicine; [facility] Work Phone: Comment on above: PATIENT WAS FASTINGP ERFORMED BY: NIMCO Labrosalinda HayesRygtmn9839 [address] RoadDublin [place] [id number] Ketones Ql (U) Negative Normal Comprehens alex [facility] Medicine; [facility] Work Phone: Comment on above: PATIENT WAS FASTINGP ERFORMED BY: NICMO Soto6370 [address] [facility] [id number] Leukocyte esterase Test strip Ql (U) Negative Normal [facility]; [facility] Work Phone: Comment on above: PATIENT WAS FASTINGP ERFORMED BY: NIMCO Soto6370 [address] [facility] [id number] Microscopic observation LM Nom (Urine sed) MICRON Normal [facility]; [facility] Work Phone: Comment on above: Microscopic follows if indicated. PATIENT WAS FASTINGP ERFORMED BY: NIMCO Hayeslin6370 [address] [facility] [id number] Microscopic observation LM Nom (Urine sed) See below: Normal [facility]; [facility] Work Phone: Comment on above: Microscopic was jatin cated and was performed. PATIENT WAS FASTINGP ERFORMED BY: NIMCO Hayeslin6370 [facility] [id number] Nitrite Ql (U) Negative Normal Comprehens alex [facility] Medicine; [facility] Work Phone: Comment on above: PATIENT WAS FASTINGP ERFORMED BY: NIMCO Soto6370 [facility] [id number] pH (U) 6.5 [pH] Normal 5.0-7.5 [facility]; [facility] Work Phone: Comment on above: PATIENT WAS FASTINGP ERFORMED BY: NIMCO Hayeslin6370 [facility] [id number] Protein Ql (U) Negative Normal Comprehens alex [facility] Medicine; [facility] Work Phone: Comment on above: PATIENT WAS FASTINGP ERFORMED BY: NIMCO Hayeslin6370 [facility] [id number] Specific gravity (U) [Rel density] 1.024 1 Normal 1.005-1.030 [facility]; [facility] Work Phone: Comment on above: PATIENT WAS FASTINGP ERFORMED BY: [employer] Zmsqba4483 [address] RoadDublin [place] [id number] Urobilinogen (U) [Mass/Vol] 0.2 mg/dL Normal 0.2-1.0 [facility]; [facility] Work Phone: Comment on above: PATIENT WAS FASTINGP ERFORMED BY: [employer] Wcvwxd2454 [address] RoadDublin [place] [id number] VITAMIN B-12 (CYANOCOBALAMIN ) (66622)Ordered By: Beam Doffer on 10-15-2022 Cobalamin (Vitamin B12) [Mass/Vol] 323 pg/mL Normal 232-1245 [facility]; [facility] Work Phone: Comment on above: PATIENT WAS FASTINGP ERFORMED BY: [employer] Mpnmpb7974 [address] RoadDublin [place] [id number] CALCIFIDIOL (43408) VIT D 25 Ordered By: Beam Doffer on 01-23-2022 25-hydroxyvitamin D [Mass/Vol] 104.0 ng/mL Abnormal 30.0-100.0 [facility]; [facility] Work Phone: Comment on above: Vitamin D deficiency has been defined by the [place] ofThe [facility] Hospitalcine and an Endocrine Society practice guideline as alevel of serum 25-OH vitamin D less than 20 ng/mL (1,2).The Endocrine Society went on to further define vitamin Dinsufficiency as a level between 21 and 29 ng/mL (2).1. IOM ([place] of Medicine). 2010. Dietary reference intakes for calcium and D. [place]: The National Academies Press.2. Henok MF, Sara NC, Jessica PHILLIP, et al. Evaluation, treatment, and prevention of vitamin D deficiency: an Endocrine Society clinical practice guideline. JCEM. 2010; 96(7):1911-30. PATIENT WAS FASTINGP ERFORMED BY: [facility] Oeejox0214 [address] RoadDublin [place] [id number] CBC W/AUTO DIFF WBC (40301)O rdered By: Beam Doffer on 01-23-2022 Basophils (Bld) [#/Vol] 0.1 10*3/uL Normal 0.0-0.2 [facility]; [facility] Work Phone: Comment on above: PATIENT WAS FASTINGP ERFORMED BY: NIMCO Labcoderic Uhdtzg1613 [address] RoadDublin [place] [id number] Basophils/100 WBC (Bld) 1 % Normal [facility]; [facility] Work Phone: Comment on above: PATIENT WAS FASTINGP ERFORMED BY: CB [facility] Pngadw1823 [address] RoadDublin [place] [id number] Eosinophils (Bld) [#/Vol] 0.1 10*3/uL Normal 0.0-0.4 [facility]; [facility] Work Phone: Comment on above: PATIENT WAS FASTINGP ERFORMED BY: [facility] Febsiy8731 [address] RoadDublin [place] [id number] Eosinophils/100 WBC (Bld) 1 % Normal [facility]; [facility] Work Phone: Comment on above: PATIENT WAS FASTINGP ERFORMED BY: [facility] Byavii1425 [address] RoadDublin [place] [id number] Erythrocyte distribution width (RBC) [Ratio] 13.9 % Normal 11.7-15.4 [facility]; [facility] Work Phone: Comment on above: PATIENT WAS FASTINGP ERFORMED BY: [facility] Yjcupc7130 [address] RoadDublin [place] [id number] Hematocrit (Bld) [Volume fraction] 39.5 % Normal 34.0-46.6 [facility]; [facility] Work Phone: Comment on above: PATIENT WAS FASTINGP ERFORMED BY: [facility] Xuvxll2284 [address] RoadDublin [place] [id number] Hemoglobin (Bld) [Mass/Vol] 12.9 g/dL Normal 11.1-15.9 [facility]; [facility] Work Phone: Comment on above: PATIENT WAS FASTINGP ERFORMED BY: CB [facility] Qlfymp6225 [address] RoadDublin [place] [id number] Immature granulocytes (Bld) [#/Vol] 0.0 10*3/uL Normal 0.0-0.1 [facility]; [facility] Work Phone: Comment on above: PATIENT WAS FASTINGP ERFORMED BY: NIMCO [facility] Ljepix3553 [address] RoadDublin [place] [id number] Immature granulocytes/100 WBC (Bld) 0 % Normal [facility]; [facility] Work Phone: Comment on above: PATIENT WAS FASTINGP ERFORMED BY: [facility] Yzqjij0270 [address] [facility]bl[facility] [place] [id number] Lymphocytes (Bld) [#/Vol] 2.1 10*3/uL Normal 0.7-3.1 [facility]; [facility] Work Phone: Comment on above: PATIENT WAS FASTINGP ERFORMED BY: NIMCO [facility] Evxlin3937 [address] [facility]in [place] [id number] Lymphocytes/100 WBC (Bld) 21 % Normal [facility]; [facility] Work Phone: Comment on above: PATIENT WAS FASTINGP ERFORMED BY: NIMCO [facility] [facility]in [place] [id number] MCH (RBC) [Entitic mass] 28.1 pg Normal 26.6-33.0 [facility]; [facility] Work Phone: Comment on above: PATIENT WAS FASTINGP ERFORMED BY: [facility]6370 [address] [facility]in [place] [id number] MCHC (RBC) [Mass/Vol] 32.7 g/dL Normal 31.5-35.7 [facility]; [facility] Work Phone: Comment on above: PATIENT WAS FASTINGP ERFORMED BY: [facility] Bhptmx0222 [address] [facility] [place] [id number] MCV (RBC) [Entitic vol] 86 fL Normal 79-97 [facility]; [facility] Work Phone: Comment on above: PATIENT WAS FASTINGP ERFORMED BY: [facility] Ffhlop0031 [address] RoadDublin [place] [id number] Monocytes (Bld) [#/Vol] 0.4 10*3/uL Normal 0.1-0.9 [facility]; [facility] Work Phone: Comment on above: PATIENT WAS FASTINGP ERFORMED BY: NIMCO Romeo Soto6370 [address]Dublin [place] [id number] Monocytes/100 WBC (Bld) 4 % Normal [facility]; [facility] Work Phone: Comment on above: PATIENT WAS FASTINGP ERFORMED BY: NIMCO Labsharadderic Dkusyl4540 [address] RoadDublin [place] [id number] Neutrophils (Bld) [#/Vol] 7.3 10*3/uL Abnormal 1.4-7.0 [facility]; [facility] Work Phone: Comment on above: PATIENT WAS FASTINGP ERFORMED BY: NIMCO Hayeslin6370 [address]Dublin [place] [id number] Neutrophils/100 WBC (Bld) 73 % Normal [facility]; [facility] Work Phone: Comment on above: PATIENT WAS FASTINGP ERFORMED BY: NIMCO Shantellrosalinda HayesQtxrac4061 [address] RoadDublin [place] [id number] Platelets (Bld) [#/Vol] 481 10*3/uL Abnormal 150-450 [facility]; [facility] Work Phone: Comment on above: PATIENT WAS FASTINGP ERFORMED BY: NIMCO Hayeslin6370 [address]Dublin [place] [id number] RBC (Bld) [#/Vol] 4.59 10*6/uL Normal 3.77-5.28 Compr ensive Internal Medicine; [facility] Work Phone: Comment on above: PATIENT WAS FASTINGP ERFORMED BY: NIMCO Labcoderic Bhdyox7394 [address] RoadDublin [place] [id number] WBC (Bld) [#/Vol] 10.0 10*3/uL Normal 3.4-10.8 Compr ehensive Internal Medicine; [facility] Work Phone: Comment on above: PATIENT WAS FASTINGP ERFORMED BY: NIMCO [facility] Evoaiy2395 [address] RoadDublin [place] [id number] HgA1C , Office ([id number])Ordere d By: Jackelin Gomes on 01-23-2022 HbA1c (Bld) [Mass fraction] 5.3 % Normal 4.6 - 7.1 [facility]; [facility] Work Phone: LIPID PANEL ([id number])Ordered B y: Beam Doffer on 01-23-2022 Cholesterol [Mass/Vol] 141 mg/dL Normal 100-199 [facility]; [facility] Work Phone: Comment on above: PATIENT WAS FASTINGP ERFORMED BY: NIMCO [facility] Ukiydx9322 [address] RoadDublin [place] [id number] Cholesterol in HDL [Mass/Vol] 36 mg/dL Abnormal [facility]; [facility] Work Phone: Comment on above: PATIENT WAS FASTINGP ERFORMED BY: NIMCO Labcoderic Qcpmsy2716 [address] RoadDublin [place] [id number] Triglyceride [Mass/Vol] 123 mg/dL Normal 0-149 [facility]; [facility] Work Phone: Comment on above: PATIENT WAS FASTINGP ERFORMED BY: NIMCO [facility] Qzjyoh3167 [address] RoadDublin [place] [id number] LIPID PANEL (74225) 22 mg/dL Normal 5-40 Compr ehensive Internal Medicine; [facility] Work Phone: Comment on above: PATIENT WAS FASTINGP ERFORMED BY: NIMCO [facility] Setfvn3034 [address] RoadDublin [place] [id number] LIPID PANEL (26017) 83 mg/dL Normal 0-99 Compr ehensive Internal Medicine; [facility] Work Phone: Comment on above: PATIENT WAS FASTINGP ERFORMED BY: NIMCO [facility] Wcyawp2202 [address] RoadDublin [place] [id number] LIPID PANEL (48247) 2.3 {ratio} Normal 0.0-3.2 Comp rehensive Internal Medicine; [facility] Work Phone: Comment on above: LDL/HDL Ratio Men Wo men 1/2 Avg.Risk 1.0 1.5 Avg.Risk 3.6 3.2 2X Avg.Risk 6.2 5.0 3X Avg.Risk 8.0 6.1 PATIENT WAS FASTINGP ERFORMED BY: NIMCO Shantellrosalinda Czrphh0617 [facility] [id number] METABOLIC PANEL, COMPREHENSI VE (42814)Ordered By: Beam Doffer on 01-23-2022 Albumin [Mass/Vol] 4.4 g/dL Normal 3.8-4.8 [facility] Internal [facility]; [facility] Work Phone: Comment on above: PATIENT WAS FASTINGP ERFORMED BY: NIMCO Labrosalinda HayesAzcpyc9533 [facility] [id number] Albumin/Globulin [Mass ratio] 1.8 {ratio} Normal 1.2-2.2 [facility]; [facility] Work Phone: Comment on above: PATIENT WAS FASTINGP ERFORMED BY: NIMCO Shantellrosalinda HayesVgogwk2256 [facility] [id number] ALP [Catalytic activity/Vol] 75 U/L Normal 44-121 [facility]; [facility] Work Phone: Comment on above: PATIENT WAS FASTINGP ERFORMED BY: NIMCO Shantellrosalinda HayesDbatia3523 [facility] [id number] ALT [Catalytic activity/Vol] 30 U/L Normal 0-32 [facility]; [facility] Work Phone: Comment on above: PATIENT WAS FASTINGP ERFORMED BY: NIMCO Shantellrosalinda HayesNohrrj3383 [facility] [id number] AST [Catalytic activity/Vol] 16 U/L Normal 0-40 [facility]; [facility] Work Phone: Comment on above: PATIENT WAS FASTINGP ERFORMED BY: NIMCO Shantellrosalinda HayesQunxio9433 [facility] [id number] Bilirubin [Mass/Vol] 0.2 mg/dL Normal 0.0-1.2 [facility]; [facility] Work Phone: Comment on above: PATIENT WAS FASTINGP ERFORMED BY: NIMCO Walters Ddsolj1425 [address] RoadDublin [place] [id number] Calcium [Mass/Vol] 9.8 mg/dL Normal 8.7-10.2 [facility]; [facility] Work Phone: Comment on above: PATIENT WAS FASTINGP ERFORMED BY: [facility] Sunpjb1655 [address] RoadDublin [place] [id number] Chloride [Moles/Vol] 102 mmol/L Normal 96-106 Comp [facility] hospitalensive [facility]; [facility] Work Phone: Comment on above: PATIENT WAS FASTINGP ERFORMED BY: [facility] Kglcrk0067 [address] RoadDublin [place] [id number] CO2 [Moles/Vol] 21 mmol/L Normal 20-29 [facility] Internal [facility]; [facility] Work Phone: Comment on above: PATIENT WAS FASTINGP ERFORMED BY: [facility] Yglihz9910 [address] RoadDublin [place] [id number] Creatinine [Mass/Vol] 0.85 mg/dL Normal 0.57-1.00 [facility]; [facility] Work Phone: Comment on above: PATIENT WAS FASTINGP ERFORMED BY: [facility] Iaomdc8499 [address] RoadDublin [place] [id number] GFR/1.73 sq M.predicted among non-blacks MDRD (S/P/Bld) [Vol rate/Area] 92 mL/min/{1.73_m2} Normal Comprehensiv e Internal Medicine; [facility] Work Phone: Comment on above: PATIENT WAS FASTINGP ERFORMED BY: [facility] Cemiry8855 [address]Dublin [place] [id number] Globulin (S) [Mass/Vol] 2.5 g/dL Normal 1.5-4.5 [facility]; [facility] Work Phone: Comment on above: PATIENT WAS FASTINGP ERFORMED BY: [facility] Otcxyn6394 [address]Dublin [place] [id number] Glucose [Mass/Vol] 87 mg/dL Normal 65-99 [facility]; [facility] Work Phone: Comment on above: PATIENT WAS FASTINGP ERFORMED BY: NIMCO [facility] Eeakps7060 [address]Dublin [place] [id number] Potassium [Moles/Vol] 4.6 mmol/L Normal 3.5-5.2 [facility]; [facility] Work Phone: Comment on above: PATIENT WAS FASTINGP ERFORMED BY: NIMCO [facility] Tablqn5419 [address] RoadDublin [place] [id number] Protein [Mass/Vol] 6.9 g/dL Normal 6.0-8.5 [facility]; [facility] Work Phone: Comment on above: PATIENT WAS FASTINGP ERFORMED BY: NIMCO [facility] Nnwdof6037 [address] RoadDublin [place] [id number] Sodium [Moles/Vol] 140 mmol/L Normal 134-144 [facility]; [facility] Work Phone: Comment on above: PATIENT WAS FASTINGP ERFORMED BY: NIMCO Labcoderic Vfqyoj1927 [address] RoadDublin [place] [id number] Urea nitrogen [Mass/Vol] 19 mg/dL Normal 6-20 [facility]; [facility] Work Phone: Comment on above: PATIENT WAS FASTINGP ERFORMED BY: NIMCO Labcoderic Qrcxtu4626 [address] RoadDublin [place] [id number] Urea nitrogen/Creatinine [Mass ratio] 22 mg/mg Normal 9-23 [facility]; [facility] Work Phone: Comment on above: PATIENT WAS FASTINGP ERFORMED BY: NIMCO [facility] Zachky9335 [address] RoadDublin [place] [id number] MICROALBUMINOrdered By: Syst em Pug Machine Operator on 01-23-2022 Albumin DL <= 20 mg/L (U) [Mass/Vol] 5.4 ug/mL Normal Comprehensiv e Internal Medicine; [facility] Work Phone: Comment on above: PATIENT WAS FASTINGP ERFORMED BY: NIMCO [facility] Bpymuw8953 [address] RoadDublin [place] [id number] Albumin/Creatinine (U) [Mass ratio] 3 {mg/g_creat} Normal 0-29 [facility]; [facility] Work Phone: Comment on above: Normal: 0 - 29 Moder ately increased: 30 - 300 Severely increased: >300 PATIENT WAS FASTINGP ERFORMED BY: CB [facility] Ggkqqe2273 [address] RoadDublin [place] [id number] Creatinine (U) [Mass/Vol] 174.0 mg/dL Normal [facility]; [facility] Work Phone: Comment on above: PATIENT WAS FASTINGP ERFORMED BY: [facility] Ckgndj2626 [address]Dublin [place] [id number] TSH ([id number])Ordered By: [employer] m Pug Machine Operator on 01-23-2022 TSH Qn 0.952 {uIU/mL} Normal 0.450-4.500 Comprehen sive Internal Medicine; [facility] Work Phone: Comment on above: PATIENT WAS FASTINGP ERFORMED BY: NIMCO [facility] Ckodtk9366 [address]Dublin [place] [id number] URINALYSIS, W/ MICRO ([id number]) Ordered By: Beam Doffer on 01-23-2022 Appearance (U) Clear Normal Comprehens alex Internal Medicine; [facility] Work Phone: Comment on above: PATIENT WAS FASTINGP ERFORMED BY: NIMCO [facility] Ndqoov2712 [address]Dublin [place] [id number] Bilirubin Ql (U) Negative Normal Comprehe nsive Internal Medicine; [facility] Work Phone: Comment on above: PATIENT WAS FASTINGP ERFORMED BY: CB [facility] Lhhdut9224 [address]Dublin [place] [id number] Color (U) Yellow Normal [facility]; [facility] Work Phone: Comment on above: PATIENT WAS FASTINGP ERFORMED BY: NIMCO [facility] Mfxgiz2126 [address]Dublin [place] [id number] Glucose Ql (U) Negative Normal Comprehens alex Internal Medicine; [facility] Work Phone: Comment on above: PATIENT WAS FASTINGP ERFORMED BY: NIMCO Labrosalinda HayesOfnuan6550 [address] RoadDublin [place] [id number] Hemoglobin Ql (U) Negative Normal Compreh ensive Internal Medicine; [facility] Work Phone: Comment on above: PATIENT WAS FASTINGP ERFORMED BY: NIMCO Labrosalinda HayesXwbalw0569 Meza RoadDublin [place] [id number] Ketones Ql (U) Negative Normal [facility]; [facility] Work Phone: Comment on above: PATIENT WAS FASTINGP ERFORMED BY: NIMCO Labrosalinda HayesTiyvng9983 Meza RoadDublin [place] [id number] Leukocyte esterase Test strip Ql (U) Negative Normal [facility]; [facility] Work Phone: Comment on above: PATIENT WAS FASTINGP ERFORMED BY: NIMCO Hayeslin6370 Meza RoadDublin [place] [id number] Microscopic observation LM Nom (Urine sed) MICRON Normal [facility]; [facility] Work Phone: Comment on above: Microscopic follows if indicated. PATIENT WAS FASTINGP ERFORMED BY: NIMCO Labrosalinda HayesAglpww6910 Meza RoadDublin [place] [id number] Microscopic observation LM Nom (Urine sed) See below: Normal [facility]; [facility] Work Phone: Comment on above: Microscopic was jatin cated and was performed. PATIENT WAS FASTINGP ERFORMED BY: NIMCO [facility] Rkljzn6886 Meza RoadDublin [place] [id number] Nitrite Ql (U) Negative Normal [facility]; [facility] Work Phone: Comment on above: PATIENT WAS FASTINGP ERFORMED BY: NIMCO [facility] Smkjle7412 [address]za RoadDublin [place] [id number] pH (U) 7.0 [pH] Normal 5.0-7.5 [facility]; [facility] Work Phone: Comment on above: PATIENT WAS FASTINGP ERFORMED BY: NIMCO [facility] Ujmimn7985 Meza RoadDublin [place] [id number] Protein Ql (U) Trace Normal [facility]; [facility] Work Phone: Comment on above: PATIENT WAS FASTINGP ERFORMED BY: [facility] [facility] [id number] Specific gravity (U) [Rel density] >=1.030 Abnormal 1.005-1.030 [facility]; [facility] Work Phone: Comment on above: PATIENT WAS FASTINGP ERFORMED BY: [facility] Yodcoa23[address] [facility] [id number] Urobilinogen (U) [Mass/Vol] 0.2 mg/dL Normal 0.2-1.0 [facility]; [facility] Work Phone: Comment on above: PATIENT WAS FASTINGP ERFORMED BY: [facility]6[address] [facility] [id number] VITAMIN B-12 (CYANOCOBALAMIN ) ([id number])Ordered By: Beam Doffer on 01-23-2022 Cobalamin (Vitamin B12) [Mass/Vol] 187 pg/mL Abnormal 232-1245 [facility]; [facility] Work Phone: Comment on above: PATIENT WAS FASTINGP ERFORMED BY: [facility]6[address] [facility] [id number] SCRN MAMM (CAD)W/KENROY BILATo n 10-22-2021 SCRN MAMM (CAD)W/KENROY BILAT [facility] [address] [place] [address] SCRN MAMM (CAD)W/KENROY BILAT MR#: [id number] Acct: [id number] Name: ALMA ULLOA Rep #: [id number] : 1985 F 36 From: Vincent arias MD PCP: Dr. Odalys Raymond, DO Status: REG CLI Study: SCRN MAMM (CAD)W/KENROY BILAT Date of Exam: 09/24 06/15 Exam# [id number] Ordering Dr: Calin Callejas MD MAMMOGRAPHY - [...] delay biopsy of a clinically suspicious abnormality. [id number] Electronically Signed: Vincent Pickard MD at 14:48 EDT , CC: Dr. Calin Callejas MD; Dr. Odalys Raymond DO Mason Foreman/Superintendant: Signed Normal [facility] HSV 1 AND 2 IgGon 10-10-2021 HSV 1 IgG 11.60 index High 0.00-0.90 [facility] Comment on above: Result Comment: Nega tive <0.91 Equivocal 0.91 - 1.09 Positive >1.09 Note: Negative indicates no antibodies detected to HSV-1. Equivocal may suggest early infection. If clinically appropriate, retest at later date. Positive indicates antibodies detected to HSV-1. Performed By: #### L 3890.6100, L3890.6300, L509.8000, L3890.6005, L3400.1610 #### [facility] [address] [place], [place], [id number] HSV 2 IgG < 0.91 Normal 0.00-0.90 [facility] Comment on above: Result Comment: Nega tive <0.91 Equivocal 0.91 - 1.09 Positive >1.09 Note: Negative indicates no HSV-2 antibodies detected. Positive indicates HSV-2 antibodies detected. Equivocal and low positive HSV-2 screens (Index 0.91-5.00) may be false positive and are reflexed to supplemental testing in accordance with CDC guidelines. Performed at: [address] [id number] Wire Twister: Sanjeev Mendenhall PhD, Phone: [phone] Performed By: #### L 3890.6100, L3890.6300, L509.8000, L3890.6005, L3400.1610 #### [facility] [address] [facility]. [place], [place], [id number] HIV - WCHon 10-09-2021 HIV Non-Reactive Normal Nonreactive [facility] Comment on above: Performed By: #### L 3890.6100, L3890.6300, L509.8000, L3890.6005, L3400.1610 #### [facility] [address] [place], [address] Hepatitis B Surface Antigeno n 10-09-2021 HEP B Surf Ag Non-Reactive Normal Nonreactive [facility] Comment on above: Performed By: #### L 3890.6100, L3890.6300, L509.8000, L3890.6005, L3400.1610 #### [facility] [address] [place], [address] Hepatitis C Antibodyon 10-09 Hepatitis C Ab Non-Reactive Normal Nonreactive [facility] Comment on above: Result Comment: Non Reactive: < 0.8 Equivocal: >/= 0.8 to < 1.0 Reactive: >/= 1.0 The CDC recommends that a reactive/equivocal HCV antibody result be followed up by the HCV Nucleic Acid Amplification test (523640) Performed By: #### L 3890.6100, L3890.6300, L509.8000, L3890.6005, L3400.1610 #### [facility] [address] [facility] [address] [facility] [place], [address] L509.8000on 10-09-2021 Syphilis Abs Non-Reactive Normal [facility] Comment on above: Performed By: #### L 3890.6100, L3890.6300, L509.8000, L3890.6005, L3400.1610 #### [facility] [address] [facility]. [place], [place], [id number] HIV 1 and HIV-2 antibody ass ay with HIV-1 p24 antigen detectionon 10-08-2021 HIV 1+2 Ab+HIV1 p24 Ag IA Ql Non-Reactive Nonreactive [facility] Work Phone: No Panel Informationon 10-08 Hepatitis B Surface Antigen Non-Reactive Nonreactive [facility] Work Phone: Hepatitis C Antibody Non-Reactive Nonreactive W [facility] Work Phone: Comment on above: Non Reactive: < 0.8 Equivocal: >/= 0.8 to < 1.0 Reactive: >/= 1.0The CDC recommends that a reactive/equivocal HCV antibody result be followed up by the HCV Nucleic Acid Amplificationtest (153525) Herpes Simplex Virus I IgG Antibody 11.60 index [facility] Work Phone: Comment on above: Negative <0.91 Equiv ocal 0.91 - 1.09 Positive >1.09 Note: Negative indicates no antibodies detected to HSV-1. Equivocal may suggest early infection. If clinically appropriate, retest at later date. Positive indicates antibodies detected to HSV-1. Serum Treponema species anti body detectionon 10-08-2021 Treponema sp Ab Ql (S) Non-Reactive [facility] Work Phone: Serum herpes simplex virus 2 antibody assay by immunoassay (units/volume)on 10-08-2021 HSV 2 Ab IA Qn (S) < 0.91 index [facility] Work Phone: Comment on above: Negative <0.91 Equiv ocal 0.91 - 1.09 Positive >1.09 Note: Negative indicates no HSV-2 antibodies detected. Positive indicates HSV-2 antibodies detected. Equivocal and low positive HSV-2 screens (Index 0.91-5.00) may be false positive and are reflexed to supplemental testing in accordance with CDC guidelines.Performed at: [facility] [address] [id number] Director: Sanjeev Mendenhall PhD, Phone: [phone] Miscellaneous Lab Procedure 2on 08-19-2021 [facility] 2 Normal [facility] Comment on above: Order Comment: #[id number] 3915 B2 GLYCOPROTEIN 1 SERUM [id number] B2 GLYCOPROTEIN 1 SERUM RF Result Comment: [...] INFORMATION. Performed By: #### P SSII #### [facility] [address] [place], [address] Oncology Visit Reporton 07-24 Oncology Visit Report [facility] [address] [place] [address] OFFICE VISIT Date of Service: 08/19/21 1534 MR#: [id number] Acct: [id number] Name: ALMA ULLOA Rep #: [id number] : 1985 From: Bob Johnson MD Age/Sex: 36/F Location: [facility] Status: Signed HPI Subjective Date of Service 08/19/21 Chief Complaint F/u for abnormal coagulation. History of Present Illness 36y.o.woman was found to have abnormal coagulation, DRVV was 53 on 04/26/2021 so referred for further evaluation. Had blood work done and comes for follow up. 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 Normal [facility] Lupus Anticoagulant Compon 0 - Interpretation Comment: Normal . [facility] Comment on above: Result Comment: No l upus anticoagulant was detected. Performed at: - [facility]co[address] [id number] Wire Twister: Kita Suarez MD, Phone: [phone] Performed By: #### P SSII #### [facility] [address] [place], [address] aPTT Coag (Bld) [Time] 38.2 s Normal 0.0-51.9 [facility] Comment on above: Performed By: #### P SSII #### [facility] [address] [place], [address] DILUTE PT (dPT) 42.9 sec Normal 0.0-47.6 [facility] Comment on above: Performed By: #### P SSII #### [facility] [address] [place], [place], [address] dPT Conf. Ratio 1.17 Ratio Normal 0.00-1.34 [facility] Comment on above: Performed By: #### P SSII #### [facility] [address] [place], [address] DRVVT 46.1 sec Normal 0.0-47.0 [facility] Comment on above: Performed By: #### P SSII #### [facility] [address] [place], [place], [address] THROMBIN TIME 17.6 sec Normal 0.0-23.0 [facility] Comment on above: Performed By: #### P SSII #### [facility] [address] [place], [place], [address] Miscellaneous Lab Procedureo n 08-16-2021 [facility] TEST Normal [facility] Comment on above: Order Comment: LC#16 3915 B2 GLYCOPROTEIN 1 SERUM [facility] [id number] anticardiolipin ab iga,igg,igm SERUM Result Comment: TEST [...] INFORMATION. Performed By: #### P SSII #### [facility] [address] [place], [address] Absolute lymphocyte counton 08-14-2021 Lymphocytes Auto (Unsp spec) [#/Vol] 3.35 10*3/uL 0.83-4.51 [facility] Work Phone: Basophil percentageon 2021 Basophils/100 WBC (Bld) 0.7 % 0-1 [facility] Work Phone: Bilirubin [Mass/Vol] 0.40 mg/dL 0.20-1.00 [facility] Work Phone: Comment on above: For patients on eltr ombopag therapy, use of Dimension [place] TBIL is not recommended. Chloride [Moles/Vol] 107 mmol/L 98-107 [facility] Work Phone: Eosinophils/100 WBC (Bld) 1.6 % 0-5 [facility] Work Phone: Glucose [Mass/Vol] 119 mg/dL 74-106 [place] Work Phone: Comment on above: Fasting Glucose resu lt from 100 to 125 mg/dL suggests IMPAIRED HOMEOSTASIS per A.D.A. criteria. Neutrophils (Bld) [#/Vol] 6.5 10*3/uL 2.0-7.7 [facility] Work Phone: Neutrophils/100 WBC (Bld) 61.3 % 47-70 [facility] Work Phone: Potassium [Moles/Vol] 3.6 mmol/L 3.5-5.1 [facility] Work Phone: Protein [Mass/Vol] 7.5 g/dL 6.4-8.2 [place] Work Phone: Sodium [Moles/Vol] 141 mmol/L 136-145 [place] Work Phone: WBC (Bld) [#/Vol] 10.6 10*3/uL 4.4-11.0 [facility] Work Phone: Blood erythrocytes count (nu mber/volume)on 08-14-2021 RBC (Bld) [#/Vol] 4.65 10*6/uL 4.2-5.4 [facility] Work Phone: Blood hemoglobin measurement (mass/volume)on 08-14-2021 Hemoglobin (Bld) [Mass/Vol] 13.2 g/dL 12.0-15.0 [facility] Work Phone: Blood lymphocytes/100 leukoc yteson 08-14-2021 Lymphocytes/100 WBC (Bld) 31.6 % 19-41 [facility] Work Phone: Blood monocytes/100 leukocyt eson 08-14-2021 Monocytes/100 WBC (Bld) 4.3 % 0-10 [facility] Work Phone: Blood platelet mean volumeon 08-14-2021 Platelet mean volume (Bld) [Entitic vol] 8.7 fL 6.2-12.0 [facility] Work Phone: CBC W/Diff, Automatedon 07-24 Absolute Lymph 3.35 X10 3/uL Normal 0.83-4.51 [facility] Comment on above: Performed By: #### L 4500.0100, L801.1541, L100.0100, L801.1543, L500.4050, L504.2610 #### [facility] [address] [place], [address] Absolute Neut 6.5 X10 3/uL Normal 2.0-7.7 [facility] Comment on above: Performed By: #### L 4500.0100, L801.1541, L100.0100, L801.1543, L500.4050, L504.2610 #### [facility] [address] [place], [address] Basophils/100 WBC (Bld) 0.7 % Normal 0-1 [facility] Comment on above: Performed By: #### L 4500.0100, L801.1541, L100.0100, L801.1543, L500.4050, L504.2610 #### [facility] [address] [place], [address] Eosinophils/100 WBC (Bld) 1.6 % Normal 0-5 [facility] Comment on above: Performed By: #### L 4500.0100, L801.1541, L100.0100, L801.1543, L500.4050, L504.2610 #### [facility] [address] [place], [address] Erythrocyte distribution width (RBC) [Ratio] 14.1 % Normal 11.6-14.6 [facility] Comment on above: Performed By: #### L 4500.0100, L801.1541, L100.0100, L801.1543, L500.4050, L504.2610 #### [facility] [address] [place], [address] Hematocrit (Bld) [Volume fraction] 40.2 % Normal 37-47 [facility] Comment on above: Performed By: #### L 4500.0100, L801.1541, L100.0100, L801.1543, L500.4050, L504.2610 #### [facility] [address] [place], [address] Hemoglobin (Bld) [Mass/Vol] 13.2 g/dL Normal 12.0-15.0 [facility] Comment on above: Performed By: #### L 4500.0100, L801.1541, L100.0100, L801.1543, L500.4050, L504.2610 #### [facility] [address] [place], [address] IG% 0.500 Normal 0.0-0.9 [facility] Comment on above: Result Comment: IG% - Immature Granulocytes (promyelocytes, myelocytes and metamyelocytes) > 1% indicates that a LEFT SHIFT is Present. Performed By: #### L 4500.0100, L801.1541, L100.0100, L801.1543, L500.4050, L504.2610 #### [facility] [address] [place], [address] Lymphocytes/100 WBC (Bld) 31.6 % Normal 19-41 [facility] Comment on above: Performed By: #### L 4500.0100, L801.1541, L100.0100, L801.1543, L500.4050, L504.2610 #### [facility] [address] [place], [address] MCH (RBC) [Entitic mass] 28.4 pg Normal 27.0-32.0 [facility] Comment on above: Performed By: #### L 4500.0100, L801.1541, L100.0100, L801.1543, L500.4050, L504.2610 #### [facility] [address] [place], [address] MCHC (RBC) [Mass/Vol] 32.8 g/dL Normal 32-36 [facility] Comment on above: Performed By: #### L 4500.0100, L801.1541, L100.0100, L801.1543, L500.4050, L504.2610 #### [facility] [address] [place], [address] MCV (RBC) [Entitic vol] 86.5 fL Normal 81-99 [facility] Comment on above: Performed By: #### L 4500.0100, L801.1541, L100.0100, L801.1543, L500.4050, L504.2610 #### [facility] [address] [place], [address] Monocytes/100 WBC (Bld) 4.3 % Normal 0-10 [facility] Comment on above: Performed By: #### L 4500.0100, L801.1541, L100.0100, L801.1543, L500.4050, L504.2610 #### [facility] [address] [place], [address] Neutrophils/100 WBC (Bld) 61.3 % Normal 47-70 [facility] Comment on above: Performed By: #### L 4500.0100, L801.1541, L100.0100, L801.1543, L500.4050, L504.2610 #### [facility] [address] [place], [address] Nucleated RBC (Bld) [#/Vol] 0 10*3/uL Normal 0-5 [facility] Comment on above: Performed By: #### L 4500.0100, L801.1541, L100.0100, L801.1543, L500.4050, L504.2610 #### [facility] [address] [place], [address] Platelet mean volume (Bld) [Entitic vol] 8.7 fL Normal 6.2-12.0 [facility] Comment on above: Performed By: #### L 4500.0100, L801.1541, L100.0100, L801.1543, L500.4050, L504.2610 #### [facility] [address] [place], [address] Platelets (Bld) [#/Vol] 443 10*3/uL Normal 150-450 [facility] Comment on above: Performed By: #### L 4500.0100, L801.1541, L100.0100, L801.1543, L500.4050, L504.2610 #### [facility] [address] [place], [address] RBC (Bld) [#/Vol] 4.65 10*6/uL Normal 4.2-5.4 [facility] Comment on above: Performed By: #### L 4500.0100, L801.1541, L100.0100, L801.1543, L500.4050, L504.2610 #### [facility] [address] [place], [address] RDW SD 44.1 fl High 35.1-43.9 [facility] Comment on above: Performed By: #### L 4500.0100, L801.1541, L100.0100, L801.1543, L500.4050, L504.2610 #### [facility] [address] [place], [address] WBC (Bld) [#/Vol] 10.6 10*3/uL Normal 4.4-11.0 [facility] Comment on above: Performed By: #### L 4500.0100, L801.1541, L100.0100, L801.1543, L500.4050, L504.2610 #### [facility] [address] [place], [address] Comprehensive Metabolic Prof [facility] 08-14-2021 Albumin [Mass/Vol] 3.6 g/dL Normal 3.2-5.0 [place] Comment on above: Order Comment: LC#16 3915 B2 GLYCOPROTEIN 1 SERUM RF 1 Performed By: #### L 4500.0100, L801.1541, L100.0100, L801.1543, L500.4050, L504.2610 #### [facility] [address] [place], [address] Albumin/Globulin [Mass ratio] 0.9 {ratio} Normal 0.9-2.4 [facility] Comment on above: Order Comment: #16 3915 B2 GLYCOPROTEIN 1 SERUM RF 1 Performed By: #### L 4500.0100, L801.1541, L100.0100, L801.1543, L500.4050, L504.2610 #### [facility] [address] [place], [address] ALK P 80 U/L Normal 45-117 [facility] Comment on above: Order Comment: #16 3915 B2 GLYCOPROTEIN 1 SERUM RF 1 Performed By: #### L 4500.0100, L801.1541, L100.0100, L801.1543, L500.4050, L504.2610 #### [facility] [address] [place], [address] ALT [Catalytic activity/Vol] 54 U/L Normal 13-56 [facility] Comment on above: Order Comment: #16 3915 B2 GLYCOPROTEIN 1 SERUM RF 1 Performed By: #### L 4500.0100, L801.1541, L100.0100, L801.1543, L500.4050, L504.2610 #### [facility] [address] [place], [address] AST [Catalytic activity/Vol] 19 U/L Normal 15-37 [facility] Comment on above: Order Comment: #16 3915 B2 GLYCOPROTEIN 1 SERUM RF 1 Performed By: #### L 4500.0100, L801.1541, L100.0100, L801.1543, L500.4050, L504.2610 #### [facility] [address] [place], [address] Bilirubin [Mass/Vol] 0.40 mg/dL Normal 0.20-1.00 [facility] Comment on above: Order Comment: #16 3915 B2 GLYCOPROTEIN 1 SERUM RF 1 Result Comment: For patients on eltrombopag therapy, use of Dimension [place] TBIL is not recommended. Performed By: #### L 4500.0100, L801.1541, L100.0100, L801.1543, L500.4050, L504.2610 #### [facility] [address] [place], [address] BUN/CRE 14.5 RATIO Normal 10-20 [facility] Comment on above: Order Comment: #16 3915 B2 GLYCOPROTEIN 1 SERUM RF 1 Performed By: #### L 4500.0100, L801.1541, L100.0100, L801.1543, L500.4050, L504.2610 #### [facility] [address] [place], [address] CA,Total 9.4 mg/dL Normal 8.5-10.1 [facility] Comment on above: Order Comment: #16 3915 B2 GLYCOPROTEIN 1 SERUM RF 1 Performed By: #### L 4500.0100, L801.1541, L100.0100, L801.1543, L500.4050, L504.2610 #### [facility] [address] [place], [address] Chloride [Moles/Vol] 107 mmol/L Normal 98-107 [facility] Comment on above: Order Comment: #16 3915 B2 GLYCOPROTEIN 1 SERUM RF 1 Performed By: #### L 4500.0100, L801.1541, L100.0100, L801.1543, L500.4050, L504.2610 #### [facility] [address] [place], [address] CO2 [Moles/Vol] 27.0 mmol/L Normal 21.0-32.0 [facility] Comment on above: Order Comment: #16 3915 B2 GLYCOPROTEIN 1 SERUM RF 1 Performed By: #### L 4500.0100, L801.1541, L100.0100, L801.1543, L500.4050, L504.2610 #### [facility] [address] [place], [address] Creatinine [Mass/Vol] 0.96 mg/dL Normal 0.55-1.02 [facility] Comment on above: Order Comment: #16 3915 B2 GLYCOPROTEIN 1 SERUM RF 1 Result Comment: The validity of the calculated GFR GFRAA in patients over 70 years has not been determined. Clinical correlation is essential. Performed By: #### L 4500.0100, L801.1541, L100.0100, L801.1543, L500.4050, L504.2610 #### [facility] [address] [place], [address] EST GFR - AA 84 mL/min Normal >60 [facility] Comment on above: Order Comment: #16 3915 B2 GLYCOPROTEIN 1 SERUM RF 1 Result Comment: Afri can Danish GFR Calc Performed By: #### L 4500.0100, L801.1541, L100.0100, L801.1543, L500.4050, L504.2610 #### [facility] [address] [place], [address] GAP 7 Normal 5-15 [facility] Comment on above: Order Comment: #16 3915 B2 GLYCOPROTEIN 1 SERUM RF 1 Performed By: #### L 4500.0100, L801.1541, L100.0100, L801.1543, L500.4050, L504.2610 #### [facility] [address] [place], [address] GFR/1.73 sq M.predicted among non-blacks MDRD (S/P/Bld) [Vol rate/Area] 70 mL/min/{1.73_m2} Normal >60 [facility] Comment on above: Order Comment: #16 3915 B2 GLYCOPROTEIN 1 SERUM RF 1 Result Comment: Non- GFR Calc Performed By: #### L 4500.0100, L801.1541, L100.0100, L801.1543, L500.4050, L504.2610 #### [facility] [address] [place], [address] Globulin (S) [Mass/Vol] 3.9 g/dL Normal 2.2-4.2 [facility] Comment on above: Order Comment: #16 3915 B2 GLYCOPROTEIN 1 SERUM RF 1 Performed By: #### L 4500.0100, L801.1541, L100.0100, L801.1543, L500.4050, L504.2610 #### [facility] [address] [place], [address] Glucose [Mass/Vol] 119 mg/dL High 74-106 [place] Comment on above: Order Comment: #16 3915 B2 GLYCOPROTEIN 1 SERUM RF 1 Result Comment: Fast ing Glucose result from 100 to 125 mg/dL suggests IMPAIRED HOMEOSTASIS per A.D.A. criteria. Performed By: #### L 4500.0100, L801.1541, L100.0100, L801.1543, L500.4050, L504.2610 #### [facility] [address] [place], [address] Potassium [Moles/Vol] 3.6 mmol/L Normal 3.5-5.1 [facility] Comment on above: Order Comment: #16 3915 B2 GLYCOPROTEIN 1 SERUM RF 1 Performed By: #### L 4500.0100, L801.1541, L100.0100, L801.1543, L500.4050, L504.2610 #### [facility] [address] [place], [place], [id number] Sodium [Moles/Vol] 141 mmol/L Normal 136-145 [place] Comment on above: Order Comment: #16 3915 B2 GLYCOPROTEIN 1 SERUM RF 1 Performed By: #### L 4500.0100, L801.1541, L100.0100, L801.1543, L500.4050, L504.2610 #### [facility] [address] [place], [address] T PROT 7.5 g/dL Normal 6.4-8.2 [facility] Comment on above: Order Comment: #16 3915 B2 GLYCOPROTEIN 1 SERUM RF 1 Performed By: #### L 4500.0100, L801.1541, L100.0100, L801.1543, L500.4050, L504.2610 #### [facility] [address] [place], [address] Urea nitrogen [Mass/Vol] 14 mg/dL Normal 7-18 [facility] Comment on above: Order Comment: #16 3915 B2 GLYCOPROTEIN 1 SERUM RF 1 Performed By: #### L 4500.0100, L801.1541, L100.0100, L801.1543, L500.4050, L504.2610 #### [facility] [address] [place], [place], [phone] Determination of erythrocyte mean corpuscular volume (MCV)on 08-14-2021 MCV (RBC) [Entitic vol] 86.5 fL 81-99 [facility] Work Phone: Dilute Dinh's viper venom timeon 08-14-2021 dRVVT Coag (PPP) [Time] 46.1 s [facility] Work Phone: Erythrocyte Sed Rateon 08-14 SED RATE 33 mm/hr High 0-30 [facility] Comment on above: Performed By: #### L 3890.6100, L3890.6300, L509.8000, L3890.6005, L3400.1610 #### [facility] [address] [place], [place], [phone] Erythrocyte sedimentation ra yang 08-14-2021 ESR (Bld) [Velocity] 33 mm/h 0-30 [facility] Work Phone: Gastroenterology Visit Repor ton 08-14-2021 Gastroenterology Visit Report [facility] [address] [place] [address] OFFICE VISIT Date of Service: 08/14/21 MR#: [id number] Acct: [id number] Name: ALMA ULLOA Rep #: [id number] : 1985 Provider: ARLEEN Wallace Age/Sex: 36/F Location: [facility] Status: Signed Intake Vital Signs 08/14/21 14:45 [...] stool chadwick (more content not included)... Normal [facility] Hematocrit Auto (Bld) [Volum e fraction]on 08-14-2021 Hematocrit (Bld) [Volume fraction] 40.2 % 37-47 [facility] Work Phone: INR in Blood by Coagulation assayon 08-14-2021 INR Coag (Bld) [Relative time] 1.1 {INR} [facility] Work Phone: LDHon 08-14-2021 LDH 136 U/L Normal 84-246 [facility] Comment on above: Order Comment: #62 1631 B2 GLYCOPROTEIN 1 SERUM RF 1 Performed By: #### L 4500.0100, L801.1541, L100.0100, L801.1543, L500.4050, L504.2610 #### [facility] [address] [place], [address] Laboratory - Chemistry and C hemistry - challengeon 08-14-2021 ALP [Catalytic activity/Vol] 80 U/L 45-117 [facility] Work Phone: ALT [Catalytic activity/Vol] 54 U/L 13-56 [facility] Work Phone: CO2 [Moles/Vol] 27.0 mmol/L 21.0-32.0 [facility] Work Phone: Globulin (S) [Mass/Vol] 3.9 g/dL 2.2-4.2 [facility] Work Phone: Urea nitrogen/Creatinine [Mass ratio] 14.5 mg/mg 10-20 [facility] Work Phone: Laboratory - Coagulationon 0 08-14-2021 aPTT Coag (Bld) [Time] 29.5 s 24.1-36.2 [facility] Work Phone: PT Coag (PPP) [Time] 13.9 s 11.7-14.9 [facility] Work Phone: Laboratory - Hematology and Cell countson 08-14-2021 Erythrocyte distribution width (RBC) [Entitic vol] 44.1 fL 35.1-43.9 [facility] Work Phone: Erythrocyte distribution width (RBC) [Ratio] 14.1 % 11.6-14.6 [facility] Work Phone: Immature granulocytes/100 WBC (Bld) 0.500 % 0.0-0.9 [facility] Work Phone: Comment on above: IG% - Immature Granu locytes (promyelocytes, myelocytes and metamyelocytes) > 1% indicates that a LEFT SHIFT is Present. MCH (RBC) [Entitic mass] 28.4 pg 27.0-32.0 [facility] Work Phone: Nucleated RBC/100 WBC (Bld) [Ratio] 0 % 0-5 [facility] Work Phone: MCHC Auto (RBC) [Mass/Vol]on 08-14-2021 MCHC (RBC) [Mass/Vol] 32.8 g/dL 32-36 [facility] Work Phone: No Panel Informationon 08-14 Estimated GFR (MDRD) Amer 84 mL/min >60 [facility] Work Phone: Comment on above: GFR Calc Estimated GFR (MDRD) Non-Af Amer 70 mL/min >60 [facility] Work Phone: Comment on above: Non- GFR Calc Miscellaneous Test See comment [facility] Work [facility]: Comment on above: TEST [...] J Thromb Haem 2006;4:295-306. TESTING PERFORMED AT [facility]. ORIGINAL REPORT ON FILE IN LAB CONTAINS ADDITIONAL TEST SITE INFORMATION. ____ Partial Thromboplast Timeon 08-14-2021 aPTT Coag (Bld) [Time] 29.5 s Normal 24.1-36.2 [facility] Comment on above: Performed By: #### L 3890.6100, L3890.6300, L509.8000, L3890.6005, L3400.1610 #### [facility] [address] [place], [place], [phone] Platelets bldon 08-14-2021 Platelets (Bld) [#/Vol] 443 10*3/uL 150-450 [facility] Work Phone: Prothrombin Time w/INRon INR Coag (PPP) [Relative time] 1.1 {INR} Normal [facility] Comment on above: Performed By: #### L 3890.6100, L3890.6300, L509.8000, L3890.6005, L3400.1610 #### [facility] [address] [place], [address] PT Coag (PPP) [Time] 13.9 s Normal 11.7-14.9 [facility] Comment on above: Performed By: #### L 3890.6100, L3890.6300, L509.8000, L3890.6005, L3400.1610 #### [facility] [address] [place], [place], [phone] Serum or plasma albumin brandan urement (mass/volume)on 08-14-2021 Albumin [Mass/Vol] 3.6 g/dL 3.2-5.0 [place] Work Phone: Serum or plasma albumin/glob ulin mass ratioon 08-14-2021 Albumin/Globulin [Mass ratio] 0.9 {ratio} 0.9-2.4 [facility] Work Phone: Serum or plasma calcium brandan urement (mass/volume)on 08-14-2021 Calcium [Mass/Vol] 9.4 mg/dL 8.5-10.1 [place] Work Phone: Serum or plasma creatinine m easurement (mass/volume)on 08-14-2021 Creatinine [Mass/Vol] 0.96 mg/dL 0.55-1.02 [facility] Work Phone: Comment on above: The validity of the calculated GFR & GFRAA in patients over 70 years has not been determined. Clinical correlation is essential. Serum or plasma urea nitroge n measurement (mass/volume)on 08-14-2021 Urea nitrogen [Mass/Vol] 14 mg/dL 7-18 [facility] Work Phone: Thin prep Papanicolaou smear with manual screeningon 08-14-2021 Thin prep Papanicolaou smear with manual screening 19 U/L 15-37 [facility] Work Phone: Thin prep Papanicolaou smear with manual screening 7 5-15 [facility] Work Phone: Thin prep Papanicolaou smear with manual screening 136 U/L 84-246 [facility] Work Phone: Thin prep Papanicolaou smear with manual screening 42.9 sec [facility] Work Phone: Thin prep Papanicolaou smear with manual screening 1.17 Ratio [facility] Work Phone: Thin prep Papanicolaou smear with manual screening 38.2 sec [facility] Work Phone: Thin prep Papanicolaou smear with manual screening Comment: [facility] Work Phone: Comment on above: No lupus anticoagula nt was detected.Performed at: - [address] [id number] Director: Kita Suarez MD, Phone: [phone] Thrombin time in platelet po or plasmaon 08-14-2021 Thrombin time Coag (PPP) [Time] 17.6 sec [facility] Work Phone: Surgery Visit Reporton 07-11 Surgery Visit Report [facility] [address] [place] [address] OFFICE VISIT Date of Service: 07/11/21 MR#: [id number] Acct: [id number] Name: ALAM ULLOA Rep #: [id number] : 1985 Provider: Dr. 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, [address] CA,Total 9.1 mg/dL Normal 8.5-10.1 [facility] Comment on above: Performed By: #### L 3890.6100, L3890.6300, L509.8000, L3890.6005, L3400.1610 #### [facility] [address] [place], [address] Chloride [Moles/Vol] 109 mmol/L High 98-107 [facility] Comment on above: Performed By: #### L 3890.6100, L3890.6300, L509.8000, L3890.6005, L3400.1610 #### [facility] [address] [place], [address] CO2 [Moles/Vol] 24.0 mmol/L Normal 21.0-32.0 [facility] Comment on above: Performed By: #### L 3890.6100, L3890.6300, L509.8000, L3890.6005, L3400.1610 #### [facility] [address] [place], [address] Creatinine [Mass/Vol] 0.81 mg/dL Normal 0.55-1.02 [facility] Comment on above: Result Comment: The validity of the calculated GFR GFRAA in patients over 70 years has not been determined. Clinical correlation is essential. Performed By: #### L 3890.6100, L3890.6300, L509.8000, L3890.6005, L3400.1610 #### [facility] [address] [place], [address] ECRCL 76.67 ml/min Normal [facility] Comment on above: Performed By: #### L 3890.6100, L3890.6300, L509.8000, L3890.6005, L3400.1610 #### [facility] [address] [place], [address] EST GFR - AA 104 mL/min Normal >60 [facility] Comment on above: Result Comment: Afri can Danish GFR Calc Performed By: #### L 3890.6100, L3890.6300, L509.8000, L3890.6005, L3400.1610 #### [facility] [address] [place], [address] GAP 5 Normal 5-15 [facility] Comment on above: Performed By: #### L 3890.6100, L3890.6300, L509.8000, L3890.6005, L3400.1610 #### [facility] [address] [place], [address] GFR/1.73 sq M.predicted among non-blacks MDRD (S/P/Bld) [Vol rate/Area] 86 mL/min/{1.73_m2} Normal >60 [facility] Comment on above: Result Comment: Non- GFR Calc Performed By: #### L 3890.6100, L3890.6300, L509.8000, L3890.6005, L3400.1610 #### [facility] [address] [place], [address] Glucose [Mass/Vol] 97 mg/dL Normal 74-106 [place] Comment on above: Performed By: #### L 3890.6100, L3890.6300, L509.8000, L3890.6005, L3400.1610 #### [facility] [address] [place], [address] Potassium [Moles/Vol] 3.9 mmol/L Normal 3.5-5.1 [facility] Comment on above: Performed By: #### L 3890.6100, L3890.6300, L509.8000, L3890.6005, L3400.1610 #### [facility] [address] [place], [address] Sodium [Moles/Vol] 138 mmol/L Normal 136-145 [place] Comment on above: Performed By: #### L 3890.6100, L3890.6300, L509.8000, L3890.6005, L3400.1610 #### [facility] [address] [place], [address] Urea nitrogen [Mass/Vol] 20 mg/dL High 7-18 [facility] Comment on above: Performed By: #### L 3890.6100, L3890.6300, L509.8000, L3890.6005, L3400.1610 #### [facility] [address] [place], [address] Basophil percentageon 2021 Chloride [Moles/Vol] 109 mmol/L 98-107 [facility] Work Phone: Glucose [Mass/Vol] 97 mg/dL 74-106 [place] Work Phone: Potassium [Moles/Vol] 3.9 mmol/L 3.5-5.1 [facility] Work Phone: Sodium [Moles/Vol] 138 mmol/L 136-145 [place] Work Phone: WBC (Bld) [#/Vol] 9.0 10*3/uL 4.4-11.0 [place] Work Phone: Bedside Glucoseon 07-01-2021 FINGERSTICK GLU 170 mg/dL High 70-110 [facility] Comment on above: Result Comment: LUIS GEMENT OF PATIENT CARE PER NURSING PROTOCOL Performed By: #### L 3890.6100, L3890.6300, L509.8000, L3890.6005, L3400.1610 #### [facility] [address] [place], [address] (950 FINGERSTICK GLU 91 mg/dL Normal 70-110 [facility] Comment on above: Result Comment: LUIS GEMENT OF PATIENT CARE PER NURSING PROTOCOL Performed By: #### P SSII #### [facility] [address] [place], [place], [address] Blood erythrocytes count (nu mber/volume)on 07-01-2021 RBC (Bld) [#/Vol] 4.68 10*6/uL 4.2-5.4 [facility] Work Phone: Blood hemoglobin measurement (mass/volume)on 07-01-2021 Hemoglobin (Bld) [Mass/Vol] 13.1 g/dL 12.0-15.0 [facility] Work Phone: Blood platelet mean volumeon 07-01-2021 Platelet mean volume (Bld) [Entitic vol] 8.5 fL 6.2-12.0 [facility] Work Phone: CBC-Complete Blood Cnt No Di ffon 07-01-2021 Erythrocyte distribution width (RBC) [Ratio] 13.9 % Normal 11.6-14.6 [facility] Comment on above: Performed By: #### L 3890.6100, L3890.6300, L509.8000, L3890.6005, L3400.1610 #### [facility] [address] [place], [address] Hematocrit (Bld) [Volume fraction] 40.5 % Normal 37-47 [facility] Comment on above: Performed By: #### L 3890.6100, L3890.6300, L509.8000, L3890.6005, L3400.1610 #### [facility] [address] [place], [address] Hemoglobin (Bld) [Mass/Vol] 13.1 g/dL Normal 12.0-15.0 [facility] Comment on above: Performed By: #### L 3890.6100, L3890.6300, L509.8000, L3890.6005, L3400.1610 #### [facility] [address] [place], [address] MCH (RBC) [Entitic mass] 28.0 pg Normal 27.0-32.0 [facility] Comment on above: Performed By: #### L 3890.6100, L3890.6300, L509.8000, L3890.6005, L3400.1610 #### [facility] [address] [place], [address] MCHC (RBC) [Mass/Vol] 32.3 g/dL Normal 32-36 [facility] Comment on above: Performed By: #### L 3890.6100, L3890.6300, L509.8000, L3890.6005, L3400.1610 #### [facility] [address] [place], [address] MCV (RBC) [Entitic vol] 86.5 fL Normal 81-99 [facility] Comment on above: Performed By: #### L 3890.6100, L3890.6300, L509.8000, L3890.6005, L3400.1610 #### [facility] [address] [place], [address] Platelet mean volume (Bld) [Entitic vol] 8.5 fL Normal 6.2-12.0 [facility] Comment on above: Performed By: #### L 3890.6100, L3890.6300, L509.8000, L3890.6005, L3400.1610 #### [facility] [address] [place], [address] Platelets (Bld) [#/Vol] 438 10*3/uL Normal 150-450 [facility] Comment on above: Performed By: #### L 3890.6100, L3890.6300, L509.8000, L3890.6005, L3400.1610 #### [facility] [address] [place], [address] RBC (Bld) [#/Vol] 4.68 10*6/uL Normal 4.2-5.4 [facility] Comment on above: Performed By: #### L 3890.6100, L3890.6300, L509.8000, L3890.6005, L3400.1610 #### [facility] [address] [place], [address] RDW SD 43.6 fl Normal 35.1-43.9 [facility] Comment on above: Performed By: #### L 3890.6100, L3890.6300, L509.8000, L3890.6005, L3400.1610 #### [facility] [address] [place], [address] WBC (Bld) [#/Vol] 9.0 10*3/uL Normal 4.4-11.0 [place] Comment on above: Performed By: #### L 3890.6100, L3890.6300, L509.8000, L3890.6005, L3400.1610 #### [facility] [address] [place], [address] Cholangiogram/ O R,Initialon 07-01-2021 Cholangiogram/ O R,Initial [facility] Imaging Services [address] [place] [address] Cholangiogram/ O R,Initial MR#: [id number] Acct: [id number] Name: ALMA ULLOA Rep #: [id number] : 1985 F 36 From: Vincent arias MD PCP: Dr. Odalys Raymond DO Status: [facility] Study: Cholangiogram/ O R,Initial Date of Exam: 07/01 Exam# [id number] Ordering Dr: Toro Epstein MD STUDY: INTRAOPERATIVE [...] Odalys Raymond DO; Dr. Toro Epstein MD Mason Foreman/Superintendant: Signed Normal [facility] Determination of erythrocyte mean corpuscular volume (MCV)on 07-01-2021 MCV (RBC) [Entitic vol] 86.5 fL 81-99 [facility] Work Phone: Discharge Instructionon Discharge Instruction [facility] Medical Records Department [address] [place] [address] Instructions for Home/Discharge Instructions 07/01/21711 MR#: [id number] Acct: [id number] Name: ALMA ULLOA Rep #: [id number] : 1985 36 From: Toro Epstein MD PCP: Dr. Odalys Raymond DO Status:DEP [facility] Discharge Instructions Procedure General Surgery Diet Discharge [...] Up With: Toro Epstein MD When: Call [phone] to make an appointment to be seen [...] MD CC: Dr. Odalys Raymond, Signed Normal [facility] Glucose Glucometer (BldC) [M ass/Vol]on 07-01-2021 Glucose [Mass/Vol] 170 mg/dL 70-110 [place] Work Phone: Comment on above: MANAGEMENT OF PATIEN T CARE PER NURSING PROTOCOL Hematocrit Auto (Bld) [Volum e fraction]on 07-01-2021 Hematocrit (Bld) [Volume fraction] 40.5 % 37-47 [facility] Work Phone: Hemoglobin A1con 07-01-2021 HbA1c (Bld) [Mass fraction] 5.8 % High 3.8-5.6 [facility] Comment on above: Result Comment: Norm al < 5.7 % Prediabetic 5.7 - 6.4 % Diabetic >or= 6.5 % Please note range changes. Performed By: #### L 3890.6100, L3890.6300, L509.8000, L3890.6005, L3400.1610 #### [facility] [address] [place], [place], [address] Laboratory - Chemistry and C hemistry - challengeon 07-01-2021 CO2 [Moles/Vol] 24.0 mmol/L 21.0-32.0 [facility] Work Phone: HCG ( test) Ql (U) Negative [facility] Work Phone: Comment on above: Very dilute urine sp ecimens, as indicated by a low specificgravity, may not contain sales representative groceries levels of hCG. If is still suspected, a first morning urinespecimen should be collected 48 hours later and tested. Urea nitrogen/Creatinine [Mass ratio] 24.8 mg/mg 10-20 [facility] Work Phone: Laboratory - Hematology and Cell countson 07-01-2021 Erythrocyte distribution width (RBC) [Entitic vol] 43.6 fL 35.1-43.9 [facility] Work Phone: Erythrocyte distribution width (RBC) [Ratio] 13.9 % 11.6-14.6 [facility] Work Phone: MCH (RBC) [Entitic mass] 28.0 pg 27.0-32.0 [facility] Work Phone: MCHC Auto (RBC) [Mass/Vol]on 07-01-2021 MCHC (RBC) [Mass/Vol] 32.3 g/dL 32-36 [facility] Work Phone: No Panel Informationon 07-01 Estimated Creatinine Clearance Calc 76.67 ml/min [facility] Work Phone: Estimated GFR (MDRD) Amer 104 mL/min >60 [facility] Work Phone: Comment on above: GFR Calc Estimated GFR (MDRD) Non-Af Amer 86 mL/min >60 [facility] Work Phone: Comment on above: Non- GFR Calc Operative Reporton Operative Report [facility] Medical Records Department [address] [place] [address] Operative Report 07/01/21 0903 MR#: [id number] Acct: [id number] Name: ALMA ULLOA Rep #: [id number] : 1985 36 From: Toro Epstein MD PCP: Dr. Odalys Raymond DO Status:DEP [facility] [place] Location[place] [facility] [place] Problems Associated Problem List Diagnoses (1) Cholelithiasis [...] morbidly obese and this dissection was requiring [employer] retractors and deeper exposure. Holding sutures of [...] material so the second biopsy was performed. [place] that I had an adequate core with [...] DO; Dr. Toro Epstein MD Signed Normal [facility] Platelets bldon 07-01-2021 Platelets (Bld) [#/Vol] 438 10*3/uL 150-450 [facility] Work Phone: ,Urineon 07-01-2021 Beta HCG ( test) Ql (U) Negative Normal [facility] Comment on above: Result Comment: Very dilute urine specimens, as indicated by a low specific gravity, may not contain sales representative groceries levels of hCG. If is still suspected, a first morning urine specimen should be collected 48 hours later and tested. Performed By: #### L 3890.6100, L3890.6300, L509.8000, L3890.6005, L3400.1610 #### [facility] [address] [place], [address] Serum or plasma calcium brandan urement (mass/volume)on 07-01-2021 Calcium [Mass/Vol] 9.1 mg/dL 8.5-10.1 [place] Work Phone: Serum or plasma creatinine m easurement (mass/volume)on 07-01-2021 Creatinine [Mass/Vol] 0.81 mg/dL 0.55-1.02 [facility] Work Phone: Comment on above: The validity of the calculated GFR & GFRAA in patients over 70 years has not been determined. Clinical correlation is essential. Serum or plasma urea nitroge n measurement (mass/volume)on 07-01-2021 Urea nitrogen [Mass/Vol] 20 mg/dL 7-18 [facility] Work Phone: Thin prep Papanicolaou smear with manual screeningon 07-01-2021 Thin prep Papanicolaou smear with manual screening 5 5-15 [facility] Work Phone: Trichrome (control)on 2021 Trichrome (control) [...] node, measuring 0.5 cm in greatest dimension. Slasher Operator sections from the gallbladder and the cystic [...] in one cassette. / SJ:noam 07/01/2021 TC:[address] [facility]: [id number], [address], [address] x5 Signed (signature on file) Dr. Domenico Diaz, 07/02/21 1224 Normal [facility] Comment on above: Performed By: #### L 3890.6100, L3890.6300, L509.8000, L3890.6005, L3400.1610 #### [facility] [address] [place], [place], [id number] Whole blood hemoglobin A1c/t otal hemoglobin ratio (mass fraction)on 07-01-2021 HbA1c (Bld) [Mass fraction] 5.8 % 3.8-5.6 [facility] Work Phone: Comment on above: Normal < 5.7 % Predi abetic 5.7 - 6.4 % Diabetic >or= 6.5 % Please note range changes. Surgery Visit Reporton 06-27 Surgery Visit Report [facility] [address] [place], [place] [address] OFFICE VISIT Date of Service: 06/27/21 MR#: [id number] Acct: [id number] Name: ALMA ULLOA Rep #: [id number] : 1985 Provider: Dr. 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 Normal [facility] Gastroenterology Visit Repor ton 06-07-2021 Gastroenterology Visit Report [facility] Gastroenterology [address] [place] [address] OFFICE VISIT Date of Service: 06/07/21 MR#: [id number] Acct: [id number] Name: ALMA ULLOA Rep #: [id number] : 1985 Provider: ARLEEN Wallace Age/Sex: 36/F Location: [facility] Status: Signed Intake Intake Visit Reasons: [...] and well groomed Quality Reporting Tobacco Screening ([facility] 138) Smoking Status: Never smoker Assessment [...] K31.84 06/07/21 1430 Date Isidra Wallace NP JOB PRINTER-C Cosigner Signature: Date (if applicable) CC: Dr. Odalys Raymond DO Normal [facility] Bedside Glucoseon 05-23-2021 FINGERSTICK GLU 121 mg/dL High 70-110 [facility] Comment on above: Result Comment: LUIS BUNCH OF PATIENT CARE PER NURSING PROTOCOL Performed By: #### P SSII #### [facility] Laboratory [address] [facility] [place], [address] Colonoscopy Reporton 021 Colonoscopy Report [facility] Medical Records Department [address] [place] [address] Colonoscopy Report MR#: [id number] Acct: [id number] Name: ALMA ULLOA Rep #: [id number] : 1985 36 From: Joe Arias DO PCP: Dr. Odalys Raymond DO Status:[facility] Patient Name: Alma Ulloa Procedure [...] 2 weeks. Procedure Code(s): --- Professional --- 82473, Colonoscopy, flexible; with biopsy, single or multiple 65289, 59, Moderate sedation services provided by the same physician or other qualified health critical care nurse practitioner performing the diagnostic or therapeutic service that the sedation supports, requiring the presence of an independent trained observer to assist in the monitoring of the patient's level of consciousness and physiological status; initial 15 minutes of intraservice time, patient age 6 years (more content not included)... Normal [facility] EGD Reporton 05-23-2021 EGD Report [facility] Medical Records Department [address] [place] [address] EGD Report MR#: [id number] Acct: [id number] Name: ALMA ULLOA Rep #: [id number] : 1985 36 From: Joe Arias DO PCP: Dr. Odalys Raymond DO Status:[facility] Patient Name: Alma Ulloa Procedure [...] 2 weeks. Procedure Code(s): --- Professional --- 36158, 59, Esophagogastroduodenosco py, flexible, transoral; with biopsy, single or multiple 63952, 59, Moderate sedation services provided by the same physician or other qualified health critical care nurse practitioner performing the diagnostic or therapeutic service that the sedation supports, requiring the presence of an independent trained observer to assist in the monitori (more content not included)... Normal [facility] ,Urineon 05-23-2021 Beta HCG ( test) Ql (U) Negative Normal [facility] Comment on above: Result Comment: Very dilute urine specimens, as indicated by a low specific gravity, may not contain sales representative groceries levels of hCG. If is still suspected, a first morning urine specimen should be collected 48 hours later and tested. Performed By: #### P SSII #### [facility] Laboratory [address] [place], [address] Special Stain Group IIon Special Stain Group II OPERATION: Colonoscopy, EGD ([facility] PRE-OP DIAGNOSIS: Diarrhea, fatty liver TISSUE SUBMITTED: [...] one cassette. / SJ:rg 05/23/21 TC:3 CPT: 58145 x3, 59014 Signed (signature on file) Dr. Sacha Trevizo MD 05/27/21 1111 Normal [facility] Comment on above: Performed By: #### P SSII #### [facility] Laboratory [address] [place], [place], [address] Oncology Visit Report 04-25 Oncology Visit Report [facility] [place] [address] OFFICE VISIT Date of Service: 05/22/21 1527 MR#: [id number] Acct: [id number] Name: ALMA ULLOA Rep #: [id number] : 1985 From: Bob Johnson MD Age/Sex: 36/F Location: [facility] Status: Signed HPI Subjective Date of Service 05/22/21 Chief Complaint Referred for abnormal coagulation. History of Present Illness 36y.o.woman was found to have abnormal coagulation, DRVV was 53 on 04/26/2021 so referred for further evaluation. 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 Normal [facility] Blood Glucose , Office (4796 2)Ordered By: Muna Singh on 05-20-2021 Glucose Glucometer (BldC) [Moles/Vol] 130 1 Normal [facility] Work Phone: CALCIFIDIOL ([phone]) VIT D 25 Ordered By: Beam Doffer on 05-20-2021 25-hydroxyvitamin D [Mass/Vol] 47.8 ng/mL Normal 30.0-100.0 [facility]; [facility] Work Phone: Comment on above: Vitamin D deficiency has been defined by the [place] ofMedicine and an Endocrine Society practice guideline as alevel of serum 25-OH vitamin D less than 20 ng/mL (1,2).The Endocrine Society went on to further define vitamin Dinsufficiency as a level between 21 and 29 ng/mL (2).1. IOM ([place] of [employer]). 2010. Dietary reference intakes for calcium and D. Aparicio [place]: The National Academies Press.2. Henok MF, Sara NC, Jessica PHILLIP, et al. Evaluation, treatment, and prevention of vitamin D deficiency: an Endocrine Society clinical practice guideline. JCEM. 2010; 96(7):1911-30. PATIENT NOT FASTINGP ERFORMED BY: [facility] Bvypii4151 [facility] [id number] HgA1C , Office (19661)Ordere d By: Muna Singh on 05-20-2021 HbA1c (Bld) [Mass fraction] 6.0 % Normal 4.6 - 7.1 [facility] Work Phone: Liveron 05-20-2021 Liver [facility] Imaging Services [address] [place] [address] Liver MR#: [id number] Acct: [id number] Name: ALMA ULLOA Rep #: [id number] : 1985 F 36 From: Vincent arias MD PCP: Dr. Odalys Raymond DO Status: [facility] Study: Liver Date of Exam: 05/20/21 Exam# [id number] Ordering Dr: Joe Arias DO ADDENDUM by [...] Liver stiffness measurements were obtained on a [employer] 85 ultrasound machine using a CA 1-7 [...] right hydronephrosis. (more content not included)... Normal [facility] METABOLIC PANEL, COMPREHENSI VE (89208)Ordered By: Beam Doffer on 05-20-2021 Albumin [Mass/Vol] 4.2 g/dL Normal 3.8-4.8 [facility]; [facility] Work Phone: Comment on above: PATIENT NOT FASTINGP ERFORMED BY: [facility] [facility] [employer]6[address] [facility] [id number] Albumin/Globulin [Mass ratio] 1.4 {ratio} Normal 1.2-2.2 [facility]; [facility] Work Phone: Comment on above: PATIENT NOT FASTINGP ERFORMED BY: [employer]6[address] Stigni.bgSpring [facility] [id number] ALP [Catalytic activity/Vol] 82 U/L Normal 44-121 [facility]; [facility] Work Phone: Comment on above: Please note refere nce interval change PATIENT NOT FASTINGP ERFORMED BY: CB [facility] Ukxfjf1144 [address] RoadDublin [place] [id number] ALT [Catalytic activity/Vol] 26 U/L Normal 0-32 [facility]; [facility] Work Phone: Comment on above: PATIENT NOT FASTINGP ERFORMED BY: CB [facility] Dteykf5913 Me[address] RoadDublin [place] [id number] AST [Catalytic activity/Vol] 17 U/L Normal 0-40 [facility]; [facility] Work Phone: Comment on above: PATIENT NOT FASTINGP ERFORMED BY: CB [facility] Armzum2536 [address] RoadDublin [place] [id number] Bilirubin [Mass/Vol] 0.2 mg/dL Normal 0.0-1.2 Comp rehensive [facility]; [facility] Work Phone: Comment on above: PATIENT NOT FASTINGP ERFORMED BY: CB [facility] Xmnwbt1249 [address] RoadDublin [place] [id number] Calcium [Mass/Vol] 9.4 mg/dL Normal 8.7-10.2 [facility]; [facility] Work Phone: Comment on above: PATIENT NOT FASTINGP ERFORMED BY: CB [facility] Ouvpuy11[address] RoadDublin [place] [id number] Chloride [Moles/Vol] 102 mmol/L Normal 96-106 [facility]; [facility] Work Phone: Comment on above: PATIENT NOT FASTINGP ERFORMED BY: CB [facility] Nuublq6715 [address] RoadDublin [place] [id number] CO2 [Moles/Vol] 22 mmol/L Normal 20-29 [facility]; [facility] Work Phone: Comment on above: PATIENT NOT FASTINGP ERFORMED BY: CB [facility] Pgyadi7300 [address] RoadDublin [place] [id number] Creatinine [Mass/Vol] 0.74 mg/dL Normal 0.57-1.00 [facility]; [facility] Work Phone: Comment on above: PATIENT NOT FASTINGP ERFORMED BY: [employer] [place] [id number] GFR/1.73 sq M.predicted among blacks CKD-EPI (S/P/Bld) [...] NOT FASTINGP ERFORMED BY: [employer] Soto[address] [facility] [id number] GFR/1.73 sq M.predicted among non-blacks CKD-EPI (S/P/Bld) [Vol rate/Area] 105 mL/min/1.73 Normal [facility]; [facility] Work Phone: Comment on above: PATIENT NOT FASTINGP ERFORMED BY: [employer] Soto6370 [facility]za[facility] [id number] Globulin (S) [Mass/Vol] 3.0 g/dL Normal 1.5-4.5 [facility]; [facility] Work Phone: Comment on above: PATIENT NOT FASTINGP ERFORMED BY: [employer] Soto6370 [facility] [id number] Glucose [Mass/Vol] 100 mg/dL Abnormal 65-99 [facility]; [facility] Work Phone: Comment on above: PATIENT NOT FASTINGP ERFORMED BY: [employer] Soto6370 [facility] [id number] Potassium [Moles/Vol] 4.2 mmol/L Normal 3.5-5.2 [facility]; [facility] Work Phone: Comment on above: PATIENT NOT FASTINGP ERFORMED BY: [employer] Hayeslin6370 [facility] [id number] Protein [Mass/Vol] 7.2 g/dL Normal 6.0-8.5 [facility]; [facility] Work Phone: Comment on above: PATIENT NOT FASTINGP ERFORMED BY: N[employer] Labrosalinda HayesKncaka8604 [address] RoadDublin [place] [id number] Sodium [Moles/Vol] 138 mmol/L Normal 134-144 [facility]; [facility] Work Phone: Comment on above: PATIENT NOT FASTINGP ERFORMED BY: NIMCO [facility] Pimbhz1934 [address] RoadDublin [place] [id number] Urea nitrogen [Mass/Vol] 15 mg/dL Normal 6-20 [facility]; [facility] Work Phone: Comment on above: PATIENT NOT FASTINGP ERFORMED BY: N[employer] Labsharadderic HayesIvgded1359 [address] RoadDublin [place] [id number] Urea nitrogen/Creatinine [Mass ratio] 20 mg/mg Normal 9-23 [facility]; [facility] Work Phone: Comment on above: PATIENT NOT FASTINGP ERFORMED BY: NIMCO Labsharad Hvrvnd9891 [address] RoadDublin [place] [id number] MICROALBUMINOrdered By: Syst em Pug Machine Operator on 05-20-2021 Albumin DL <= 20 mg/L (U) [Mass/Vol] 6.0 ug/mL Normal [facility] e [facility]; [facility] Work Phone: Comment on above: PATIENT NOT FASTINGP ERFORMED BY: CB [facility] Bxzapk9701 [address] RoadDublin [place] [id number] Albumin/Creatinine (U) [Mass ratio] 5 {mg/g_creat} Normal 0-29 [facility]; [facility] Work Phone: Comment on above: Normal: 0 - 29 Moder ately increased: 30 - 300 Severely increased: >300 PATIENT NOT FASTINGP ERFORMED BY: NIMCO [facility] Arvmzw0159 [address] RoadDublin [place] [id number] Creatinine (U) [Mass/Vol] 128.1 mg/dL Normal [facility]; [facility] Work Phone: Comment on above: PATIENT NOT FASTINGP ERFORMED BY: [facility] Qkspnh[address] EosHealthblin [place] [id number] TSH (63850)Ordered By: Venuemobe m Pug Machine Operator on 05-20-2021 TSH Qn 0.925 {uIU/mL} Normal 0.450-4.500 [facility]; [facility] Work Phone: Comment on above: PATIENT NOT FASTINGP ERFORMED BY: CB [facility] Vdpype6710 [address] RoadDublin [place] [id number] VITAMIN B-12 (CYANOCOBALAMIN ) (24461)Ordered By: Beam Doffer on 05-20-2021 Cobalamin (Vitamin B12) [Mass/Vol] 259 pg/mL Normal 232-1245 [facility]; [facility] Work Phone: Comment on above: PATIENT NOT FASTINGP ERFORMED BY: CB [facility] Beshtp[address] [facility] [place] [id number] ANCAon 05-03-2021 Atypical pANCA <1:20 Normal Neg:<1:20 [facility] Comment on above: Order Comment: Test( s) 575875-Wkqthv, Serum or Plasmawas developed and its performance characteristicsdetermined by [employer]. It has not been cleared or approvedby the Food and Drug Administration.BILL comprehensive Result Comment: The atypical pANCA pattern has been observed in a significant percentage of patients with ulcerative colitis, primary sclerosing cholangitis and autoimmune hepatitis. Performed By: #### L 3890.6100, L3890.6300, L509.8000, L3890.6005, L3400.1610 #### [facility] Laboratory [address] [place], [address] Perinuclear Ab. <1:20 Normal Neg:<1:20 [facility] Comment on above: Order Comment: Test( s) 011532-Mdmbyi, Serum or Plasmawas developed and its performance characteristicsdetermined by [employer]. It has not been cleared or approvedby [...] up testing of positive sera with both HI- 3 and MPO-ANCA enzyme immunoassays. As many as 5% serum samples are positive only by EIA. Ref. AM J Clin Pathol 1999;111:507-513. Performed By: #### L 3890.6100, L3890.6300, L509.8000, L3890.6005, L3400.1610 #### [facility] [address] [place], [place], [phone] (355) Cytoplasmic Ab <1:20 Normal Neg:<1:20 [facility] Comment on above: Order Comment: Test( s) 578911-Wuaqxo, Serum or Plasmawas developed and its performance characteristicsdetermined by [employer]. It has not been cleared or approvedby the Food and Drug Administration.BILL comprehensive Performed By: #### L 3890.6100, L3890.6300, L509.8000, L3890.6005, L3400.1610 #### [facility] [address] [place], [place], [address] Angiotensin Convert Enzymeon 05-03-2021 ANGIOT-CONV.ENZ 18 U/L Normal 14-82 [facility] Comment on above: Order Comment: Test( s) 989547-Sitpex, Serum or Plasmawas developed and its performance characteristicsdetermined by [employer]. It has not been cleared or approvedby the Food and Drug Administration.BILL comprehensive Performed By: #### L 3890.6100, L3890.6300, L509.8000, L3890.6005, L3400.1610 #### [facility] [address] [place], [place], [address] Anti-Smooth Muscle ABSon ANTISMOOTH MUSC 8 Units Normal 0-19 [facility] Comment on above: Order Comment: Test( s) 985553-Zewjun, Serum or Plasmawas developed and its performance characteristicsdetermined by [employer]. It has not been cleared or approvedby [...] L 3890.6100, L3890.6300, L509.8000, L3890.6005, L3400.1610 #### [facility] [address] [place], [address] Antithrombin 3 Functionon AT3 FUNCTIONAL 88 Normal 75-135 [facility] Comment on above: Order Comment: Test( s) 860406-Pjsupu, Serum or Plasmawas developed and its performance characteristicsdetermined by [employer]. It has not been cleared or approvedby the Food and Drug Administration.BILL comprehensive Result Comment: Dire ct Xa inhibitor anticoagulants such as rivaroxaban, apixaban and edoxaban will lead to spuriously elevated antithrombin activity levels possibly masking a deficiency. Performed at: - [address] [id number] Wire Twister: Kita Suarez MD, Phone: [phone] Performed at: [address] [id number] Wire Twister: Sanjeev Mendenhall PhD, Phone: [phone] Performed at: [facility] [address] [id number] Wire Twister: Thais Lynn [facility], Phone: [phone] Performed By: #### L 3890.6100, L3890.6300, L509.8000, L3890.6005, L3400.1610 #### [facility] [address] [place], [address] Celiac Disease Profileon tTG IGA <2 Normal 0-3 [facility] Comment on above: Order Comment: Test( s) 849561-Rvqfjx, Serum or Plasmawas developed and its performance characteristicsdetermined by [employer]. It has not been cleared or approvedby the Food and Drug Administration.BILL fernandes Result Comment: Nega tive 0 - 3 Weak Positive 4 - 10 Positive >10 Tissue Transglutaminase (tTG) has been identified as the endomysial antigen. Studies have demonstr- ated that endomysial IgA antibodies have over 99% specificity for gluten sensitive enteropathy. Performed By: #### L 3890.6100, L3890.6300, L509.8000, L3890.6005, L3400.1610 #### [facility] [address] [place], [place], [address] ENDOMYSIAL IGA Negative Normal Negative [facility] Comment on above: Order Comment: Test( s) 410649-Sapqkg, Serum or Plasmawas developed and its performance characteristicsdetermined by [employer]. It has not been cleared or approvedby the Food and Drug Administration.BILL comprehensive Performed By: #### L 3890.6100, L3890.6300, L509.8000, L3890.6005, L3400.1610 #### [facility] [address] [place], [place], [address] IMMUNOGLOB A QN 129 mg/dL Normal 87-352 [facility] Comment on above: Order Comment: Test( s) 051045-Uahzcu, Serum or Plasmawas developed and its performance characteristicsdetermined by [employer]. It has not been cleared or approvedby the Food and Drug Administration.BILL comprehensive Performed By: #### L 3890.6100, L3890.6300, L509.8000, L3890.6005, L3400.1610 #### [facility] [address] [place], [place], [address] Ceruloplasminon 05-03-2021 CERULOPLASMIN 29.8 mg/dL Normal 19.0-39.0 [facility] Comment on above: Order Comment: Test( s) 003928-Lgtzpw, Serum or Plasmawas developed and its performance characteristicsdetermined by [facility]. It has not been cleared or approvedby the Food and Drug Administration.BILL comprehensive Performed By: #### L 3890.6100, L3890.6300, L509.8000, L3890.6005, L3400.1610 #### [facility] [address] [place], [place], [phone] (477) Copper, Serum or Plasmaon COPPER, SERUM 146 ug/dL Normal 80-158 [facility] Comment on above: Order Comment: Test( s) 935589-Ofsjom, Serum or Plasmawas developed and its performance characteristicsdetermined by [employer]. It has not been cleared or approvedby the Food and Drug Administration.BILL comprehensive Result Comment: Dete ction Limit = 5 Performed By: #### L 3890.6100, L3890.6300, L509.8000, L3890.6005, L3400.1610 #### [facility] [address] [place], [place], [id number] (440) EBV Acute Prof IgG / IgMon 1 07-04-2020 EB Ab VCA, IgG 216.0 U/mL High 0.0-17.9 [facility] Comment on above: Order Comment: Test( s) 267238-Cnctqa, Serum or Plasmawas developed and its performance characteristicsdetermined by [employer]. It has not been cleared or approvedby the Food and Drug Administration.BILL comprehensive Result Comment: Nega tive <18.0 Equivocal 18.0 - 21.9 Positive >21.9 Performed By: #### L 3890.6100, L3890.6300, L509.8000, L3890.6005, L3400.1610 #### [facility] [address] [place], [place], [phone] (270) EBV Ab VCA, IgM < 36.0 Normal 0.0-35.9 [facility] Comment on above: Order Comment: Test( s) 672632-Pbhkca, Serum or Plasmawas developed and its performance characteristicsdetermined by [employer]. It has not been cleared or approvedby the Food and Drug Administration.BILL comprehensive Result Comment: Nega tive <36.0 Equivocal 36.0 - 43.9 Positive >43.9 Performed By: #### L 3890.6100, L3890.6300, L509.8000, L3890.6005, L3400.1610 #### [facility] [address] [place], [place], [address] EBV NuAg Ab,IgG > 600.0 High 0.0-17.9 [facility] Comment on above: Order Comment: Test( s) 515277-Gcuide, Serum or Plasmawas developed and its performance characteristicsdetermined by [facility]. It has not been cleared or approvedby the Food and Drug Administration.BILL comprehensive Result Comment: Nega tive <18.0 Equivocal 18.0 - 21.9 Positive >21.9 Performed By: #### L 3890.6100, L3890.6300, L509.8000, L3890.6005, L3400.1610 #### [facility] [address] [place], [place], [address] INTERPRETATION Comment Normal . [facility] Comment on above: Order Comment: Test( s) 556255-Dnuorg, Serum or Plasmawas developed and its performance characteristicsdetermined by [employer]. It has not been cleared or approvedby [...] L 3890.6100, L3890.6300, L509.8000, L3890.6005, L3400.1610 #### [facility] [address] [place], [place], [address] Fact V Leiden Mutationon FACTOR V LEIDEN Comment Normal . [facility] Comment on above: Order Comment: Test( s) 039141-Ffogow, Serum or Plasmawas developed and its performance characteristicsdetermined by [facility]. It has not been cleared or approvedby [...] the workup for venous thrombosis include the [id number] mutation in the factor II (prothrombin) gene, protein S and C deficiency, and antithrombin deficiencies. Anticardiolipin antibody and lupus anticoagulant analysis may be appropriate for certain patients, as well as homocysteine levels. Contact your local [facility] for information on how to order additional testing if desired. Genetic counselors are available for health care providers to discuss results at [phone] Methodology: DNA analysis of the Factor V gene was performed by allele- specific PCR. The diagnostic sensitivity and specificity is >99% for both. Molecular-based testing is highly accurate, but as in any laboratory test, diagnostic errors may occur. All test results must be combined with clinical information for the most accurate interpretation. This test was developed and its performance characteristics determined by [facility]. It has not been cleared or approved by the Food and Drug Administration. References: Mahad Tidwell (1995). Clin Lab Med 16:169-186. Ok Parker, PhD, [facility] Chelly Mcgill, PhD, [facility] Bob Adkins, PhD, [facility] Bryant Aden, PhD, [facility] Poncho Grace, PhD, FAC Erika De Leon, PhD, FAC Performed By: #### L 3890.6100, L3890.6300, L509.8000, L3890.6005, L3400.1610 #### [facility] [address] [place], [address] Immunoglobulin Olvin 1 IMMUNOGLOB E QN 3 IU/mL Low 6-495 [facility] Comment on above: Order Comment: Test( s) 378225-Gkpnpi, Serum or Plasmawas developed and its performance characteristicsdetermined by [facility]. It has not been cleared or approvedby the Food and Drug Administration.BILL comprehensive Performed By: #### L 3890.6100, L3890.6300, L509.8000, L3890.6005, L3400.1610 #### [facility] [address] [place], [address] Immunoglobulin Gelacio 1 IMMUNOGLOB G QN 1358 mg/dL Normal 586-1602 [facility] Comment on above: Order Comment: Test( s) 925778-Dmncpj, Serum or Plasmawas developed and its performance characteristicsdetermined by [employer]. It has not been cleared or approvedby the Food and Drug Administration.BILL comprehensive Performed By: #### L 3890.6100, L3890.6300, L509.8000, L3890.6005, L3400.1610 #### [facility] [address] [place], [address] Immunoglobulin Mon 1 IMMUNOGLOB M QN 54 mg/dL Normal 26-217 [facility] Comment on above: Order Comment: Test( s) 132346-Iqvgaf, Serum or Plasmawas developed and its performance characteristicsdetermined by [employer]. It has not been cleared or approvedby the Food and Drug Administration.BILL comprehensive Performed By: #### L 3890.6100, L3890.6300, L509.8000, L3890.6005, L3400.1610 #### [facility] [address] [place], [address] Lupus Anticoagulant Compon 1 07-04-2020 Interpretation Comment: Normal . [facility] Comment on above: Order Comment: Test( s) 936897-Mobewl, Serum or Plasmawas developed and its performance characteristicsdetermined by [employer]. It has not been cleared or approvedby [...] L 3890.6100, L3890.6300, L509.8000, L3890.6005, L3400.1610 #### [facility] [address] [place], [address] aPTT Coag (Bld) [Time] 45.5 s Normal 0.0-51.9 [facility] Comment on above: Order Comment: Test( s) 399376-Heninc, Serum or Plasmawas developed and its performance characteristicsdetermined by [employer]. It has not been cleared or approvedby the Food and Drug Administration.BILL fernandes Performed By: #### L 3890.6100, L3890.6300, L509.8000, L3890.6005, L3400.1610 #### [facility] [address] [place], [address] DILUTE PT (dPT) 48.2 sec High 0.0-47.6 [facility] Comment on above: Order Comment: Test( s) 098270-Iufrly, Serum or Plasmawas developed and its performance characteristicsdetermined by [employer]. It has not been cleared or approvedby the Food and Drug Administration.BILL fernandes Performed By: #### L 3890.6100, L3890.6300, L509.8000, L3890.6005, L3400.1610 #### [facility] [address] [place], [address] (297) dPT Conf. Ratio 0.94 Ratio Normal 0.00-1.34 [facility] Comment on above: Order Comment: Test( s) 632298-Uhpvsn, Serum or Plasmawas developed and its performance characteristicsdetermined by [facility]. It has not been cleared or approvedby the Food and Drug Administration.BILL comprehensive Performed By: #### L 3890.6100, L3890.6300, L509.8000, L3890.6005, L3400.1610 #### [facility] [address] [place], [address] (820) DRVVT 53.6 sec Abnormal 0.0-47.0 [facility] Comment on above: Order Comment: Test( s) 086657-Nhftfw, Serum or Plasmawas developed and its performance characteristicsdetermined by [employer]. It has not been cleared or approvedby the Food and Drug Administration.BILL comprehensive Performed By: #### L 3890.6100, L3890.6300, L509.8000, L3890.6005, L3400.1610 #### [facility] [address] [place], [address] THROMBIN TIME 17.5 sec Normal 0.0-23.0 [facility] Comment on above: Order Comment: Test( s) 675371-Qfucis, Serum or Plasmawas developed and its performance characteristicsdetermined by [employer]. It has not been cleared or approvedby the Food and Drug Administration.BILL comprehensive Performed By: #### L 3890.6100, L3890.6300, L509.8000, L3890.6005, L3400.1610 #### [facility] [address] [place], [address] (288) Protein S Antigenon 1210-20 21 PROTEIN S,TOTAL 109 Normal 60-150 [facility] Comment on above: Order Comment: Test( s) 761067-Pwuzfq, Serum or Plasmawas developed and its performance characteristicsdetermined by [facility]. It has not been cleared or approvedby the Food and Drug Administration.BILL fernandes Result Comment: This test was developed and its performance characteristics determined by [facility]. It has not been cleared or approved by the Food and Drug Administration. Performed By: #### L 3890.6100, L3890.6300, L509.8000, L3890.6005, L3400.1610 #### [facility] [address] [place], [address] PROTEIN S, FREE 122 Normal 61-136 [facility] Comment on above: Order Comment: Test( s) 877476-Lyaaek, Serum or Plasmawas developed and its performance characteristicsdetermined by [facility]. It has not been cleared or approvedby the Food and Drug Administration.BILL fernandes Performed By: #### L 3890.6100, L3890.6300, L509.8000, L3890.6005, L3400.1610 #### [facility] [address] [place], [address] NOE w/Comprehensiveon 2020 NOE TABLE Comment Normal . [facility] Comment on above: Result Comment: Auto antibody Disease Association Condition Frequency Antinuclear Antibody, SLE, mixed connective Direct (NOE-D) tissue diseases dsDNA SLE 40 - 60% Chromatin Drug induced SLE 90% SLE 48 - 97% SSA (Ro) SLE 25 - 35% Sjogren's Syndrome 40 - 70% Lupus 100% SSB (La) SLE 10% Sjogren's Syndrome 30% Sm (anti-Mccullough) SLE 15 - 30% CUTTER OPERATOR ASBESTOS SHINGLE Mixed Connective Tissue Disease 95% (U1 nRNP, SLE 30 - 50% anti-ribonucleoprotein) Polymyositis and/or Dermatomyositis 20% Scl-70 (antiDNA Scleroderma (diffuse) 20 - 35% topoisomerase) Crest 13% Raine-1 Polymyositis and/or Dermatomyositis 20 - 40% Centromere B Scleroderma - Crest variant 80% Ribosomal P SLE 10 - 20% Performed By: #### L 3890.6100, L3890.6300, L509.8000, L3890.6005, L3400.1610 #### [facility] [address] [place], [address] ANTI-DNA (DS)AB <1 Normal 0-9 [facility] Comment on above: Result Comment: Nega tive <5 Equivocal 5 - 9 Positive >9 Performed By: #### L 3890.6100, L3890.6300, L509.8000, L3890.6005, L3400.1610 #### [facility] [address] [place], [address] ANTI-CENT B AB <0.2 Normal 0.0-0.9 [facility] Comment on above: Performed By: #### L 3890.6100, L3890.6300, L509.8000, L3890.6005, L3400.1610 #### [facility] [address] [place], [address] ANTI-RAINE-1 <0.2 Normal 0.0-0.9 [facility] Comment on above: Performed By: #### L 3890.6100, L3890.6300, L509.8000, L3890.6005, L3400.1610 #### [facility] [address] [place], [address] ANTI-SS-A < 0.2 Normal 0.0-0.9 [facility] Comment on above: Performed By: #### L 3890.6100, L3890.6300, L509.8000, L3890.6005, L3400.1610 #### [facility] [address] [place], [address] Anti-SS-B < 0.2 Normal 0.0-0.9 [facility] Comment on above: Performed By: #### L 3890.6100, L3890.6300, L509.8000, L3890.6005, L3400.1610 #### [facility] [address] [place], [address] ANTICHROMATIN <0.2 Normal 0.0-0.9 [facility] Comment on above: Performed By: #### L 3890.6100, L3890.6300, L509.8000, L3890.6005, L3400.1610 #### [facility] [address] [place], [address] Antiribosomal P <0.2 Normal 0.0-0.9 [facility] Comment on above: Performed By: #### L 3890.6100, L3890.6300, L509.8000, L3890.6005, L3400.1610 #### [facility] [address] [place], [address] ANTISCLERODERM <0.2 Normal 0.0-0.9 [facility] Comment on above: Performed By: #### L 3890.6100, L3890.6300, L509.8000, L3890.6005, L3400.1610 #### [facility] [address] [place], [address] CUTTER OPERATOR ASBESTOS SHINGLE Ab <0.2 Normal 0.0-0.9 [facility] Comment on above: Performed By: #### L 3890.6100, L3890.6300, L509.8000, L3890.6005, L3400.1610 #### [facility] [address] [place], [address] MCCULLOUGH Ab <0.2 Normal 0.0-0.9 [facility] Comment on above: Performed By: #### L 3890.6100, L3890.6300, L509.8000, L3890.6005, L3400.1610 #### [facility] [address] [place], [address] MCCULLOUGH/CUTTER OPERATOR ASBESTOS SHINGLE Ab <0.2 Normal 0.0-0.9 [facility] Comment on above: Performed By: #### L 3890.6100, L3890.6300, L509.8000, L3890.6005, L3400.1610 #### [facility] [address] [place], [address] Anti-Mitochondrial ABon ANTIMITOCHON AB <20.0 Normal 0.0-20.0 [facility] Comment on above: Result Comment: Nega tive 0.0 - 20.0 Equivocal 20.1 - 24.9 Positive >24.9 Mitochondrial (M2) Antibodies are found in 90-96% of patients with primary biliary cirrhosis. Performed at: [address] [id number] Wire Twister: Sanjeev Mendenhall PhD, Phone: [phone] Performed By: #### L 3890.6100, L3890.6300, L509.8000, L3890.6005, L3400.1610 #### [facility] [address] [place], [address] Hepatitis C Antibodyon 04-27 Hepatitis C Ab Non-Reactive Normal Nonreactive [facility] Comment on above: Order Comment: Reaso n for Exam: hepatomegaly Result Comment: Non Reactive: < 0.8 Equivocal: >/= 0.8 to < 1.0 Reactive: >/= 1.0 The CDC recommends that a reactive/equivocal HCV antibody result be followed up by the HCV Nucleic Acid Amplification test (228441) Performed By: #### P SSII #### [facility] [address] [place], [place], [address] CRPon 04-26-2021 C-REACTIVE PROT 12.80 mg/L High 0.0-3.0 [facility] Comment on above: Order Comment: NOE c omprehensive1 Result Comment: C-Re active Protein (CRP) provides useful information for the diagnosis, therapy and monitoring of inflammatory processes and associated diseases. For the evaluation of Relative Risk for Cardiovascular Disease, a High Sensitivity CRP (HSCRP) should be ordered. Performed By: #### P SSII #### [facility] [address] [place], [place], [address] Erythrocyte Sed Rateon 04-26 SED RATE 32 mm/hr High 0-30 [facility] Comment on above: Performed By: #### P SSII #### [facility] [address] [place], [place], [address] Gastroenterology Visit Repor ton 04-26-2021 Gastroenterology Visit Report [facility] [address] [place] [address] OFFICE VISIT Date of Service: 04/26/21 MR#: [id number] Acct: [id number] Name: ALMA ULLOA Rep #: [id number] : 1985 Provider: Joe Arias DO Age/Sex: 35/F Location: [facility] Status: Signed Intake Vital Signs 04/26/21 13:37 Height 5 ft 2 in Weight: 303 lb 4 oz BMI 55.4 Intake Visit Reasons: IBS? Allergies No Known Allergies Allergy (Verified 11/23/20 21:32) [facility] Medical History (Updated 04/26/21 @ 14:07 by [...] Appearance: average body habitus and well nourished [facility] Head: normal to inspection Ears: hearing grossly [...] Affect: normal affect Quality Reporting Tobacco Screening ([facility] 138) Smoking Status: Never smoker Assessment [...] grams PO (more content not included)... Normal [facility] LDHon 04-26-2021 LDH 145 U/L Normal 84-246 [facility] Comment on above: Order Comment: NOE reyna omprehensive1 Performed By: #### P SSII #### [facility] [address] [place], [address] Blood Glucose , Office ([phone])on 02-08-2021 Glucose Glucometer (BldC) [Moles/Vol] 119 1 Normal [facility]; [facility] Work Phone: Comment on above: fasting HgA1C , Office ([phone])on HbA1c (Bld) [Mass fraction] 5.7 % Normal 4.6 - 7.1 [facility]; [facility] Work Phone: HgA1C , Office ([phone])Ordere d By: Jackelin Gomes on 11-30-2020 HbA1c (Bld) [Mass fraction] 7.7 % Abnormal 4.6 - 7.1 [facility]; [facility] Work Phone: URINE GREG CULTURE-IDENTIFICA [place] ([phone])Ordered By: Beam Doffer on 11-30-2020 Bacteria identified Cx Nom (U) Final report Abnormal [facility]; [facility] Work Phone: Comment on above: PATIENT NOT FASTINGP ERFORMED BY: [employer] Desgwr7356 [facility] [id number] Information: SRC: Bacteria identified Cx Nom (U) [...] and Proteusmirabilis. PATIENT NOT FASTINGP ERFORMED BY: [employer] [id number] [facility] [id number] Information: SRC:VIVI Other Antibiotic [Susc] MIHEAD Normal [...] STrimethoprim/Sulfa S PATIENT NOT FASTINGP ERFORMED BY: [employer] Nwzsnl2021 [facility] [id number] Information: SRC:VIVI Urinalysis, Office ([phone])Or dered By: Jackelin Gomes on 11-30-2020 Bilirubin [...] Medicine; [facility] Work Phone: CALCIFIDIOL ([phone]) VIT D 25 Ordered By: Beam Doffer on 02-20-2020 25-Hydroxyvitamin D2+25-Hydroxyvitamin D3 [Mass/Vol] 25.5 ng/mL Abnormal 30.0-100.0 [facility] Work Phone: Comment on above: Vitamin D deficiency has been defined by the [place] ofMedicine and an Endocrine Society practice guideline as alevel of serum 25-OH vitamin D less than 20 ng/mL (1,2).The Endocrine Society went on to further define vitamin Dinsufficiency as a level between 21 and 29 ng/mL (2).1. IOM ([place] of [employer]). 2010. Dietary reference intakes for calcium and D. [place]: The National Academies Press.2. Henok MF, Sara NC, Jessica PHILLIP, et al. Evaluation, treatment, and prevention of vitamin D deficiency: an Endocrine Society clinical practice guideline. JCEM. 2010; 96(7):1911-30. PATIENT WAS FASTINGP ERFORMED BY: [facility] Tggvoz3546 [facility] [place] [id number] CBC (AUTO) (29951)Ordered By : Beam Doffer on 02-20-2020 Erythrocyte distribution width (RBC) [Ratio] 13.9 % Normal 11.7-15.4 [facility] Work Phone: Comment on above: PATIENT WAS FASTINGP ERFORMED BY: [facility] [facility] [id number] Hematocrit (Bld) [Volume fraction] 40.4 % Normal 34.0-46.6 [facility] Work Phone: Comment on above: PATIENT WAS FASTINGP ERFORMED BY: [facility] [facility] [id number] Hemoglobin (Bld) [Mass/Vol] 13.6 g/dL Normal 11.1-15.9 [facility] Work Phone: Comment on above: PATIENT WAS FASTINGP ERFORMED BY: [facility] [facility] [id number] MCH (RBC) [Entitic mass] 28.3 pg Normal 26.6-33.0 [facility] Work Phone: Comment on above: PATIENT WAS FASTINGP ERFORMED BY: [facility] [facility] [id number] MCHC (RBC) [Mass/Vol] 33.7 g/dL Normal 31.5-35.7 [facility] Work Phone: Comment on above: PATIENT WAS FASTINGP ERFORMED BY: [facility] Xefgfn4582 [facility] [place] [id number] MCV (RBC) [Entitic vol] 84 fL Normal 79-97 [facility] Work Phone: Comment on above: PATIENT WAS FASTINGP ERFORMED BY: [facility] Nwtxws[address]706 [address] [facility] [place] [id number] Platelets (Bld) [#/Vol] 441 {x10E3/uL} Normal 150-450 [facility] Work Phone: Comment on above: PATIENT WAS FASTINGP ERFORMED BY: [facility] Thgmsg2576 [address]za RoadDublin [place] [id number] Platelets (Bld) [#/Vol] 441 10*3/uL Normal 150-450 [facility]; [facility] Work Phone: Comment on above: PATIENT WAS FASTINGP ERFORMED BY: CB [facility] Pjwzli5489 [address]za RoadDublin [place] [id number] RBC (Bld) [#/Vol] 4.80 {x10E6/uL} Normal 3.77-5.28 [facility] Work Phone: Comment on above: PATIENT WAS FASTINGP ERFORMED BY: [employer] [facility] Tdgnwd0931 [address]za RoadDublin [place] [id number] RBC (Bld) [#/Vol] 4.80 10*6/uL Normal 3.77-5.28 [facility]; [facility] Work Phone: Comment on above: PATIENT WAS FASTINGP ERFORMED BY: [employer] [facility] Tzwkvy6922 [address] RoadDublin [place] [id number] WBC (Bld) [#/Vol] 9.9 {x10E3/uL} Normal 3.4-10.8 [facility] Work Phone: Comment on above: PATIENT WAS FASTINGP ERFORMED BY: CB [facility] Zarzbw5657 [address] RoadDublin [place] [id number] WBC (Bld) [#/Vol] 9.9 10*3/uL Normal 3.4-10.8 [facility]; [facility] Work Phone: Comment on above: PATIENT WAS FASTINGP ERFORMED BY: CB [facility] Rdqjdc9743 Meza RoadDublin [place] [id number] HgA1C , Office ([phone])on HbA1c (Bld) [Mass fraction] 6.9 % Normal 4.6 - 7.1 [facility] Work Phone: LIPID PANEL (31245)Ordered B y: Beam Doffer on 02-20-2020 Cholesterol [Mass/Vol] 156 mg/dL Normal 100-199 [facility] Work Phone: Comment on above: PATIENT WAS FASTINGP ERFORMED BY: [employer] [facility]6[address] [facility] [id number] Cholesterol in HDL [Mass/Vol] 31 mg/dL Abnormal [facility] Work Phone: Comment on above: PATIENT WAS FASTINGP ERFORMED BY: [employer] [place]lin[address] [facility] [id number] Cholesterol in LDL/Cholesterol in HDL [Mass ratio] 2.9 {ratio} Normal 0.0-3.2 [facility] Work Phone: Comment on above: LDL/HDL Ratio Men Wo men 1/2 Avg.Risk 1.0 1.5 Avg.Risk 3.6 3.2 2X Avg.Risk 6.2 5.0 3X Avg.Risk 8.0 6.1 PATIENT WAS FASTINGP ERFORMED BY: [employer] [place]lin[address] [facility] [id number] Triglyceride [Mass/Vol] 207 mg/dL Abnormal 0-149 [facility] Work Phone: Comment on above: PATIENT WAS FASTINGP ERFORMED BY: [employer] [place]lin[address] [facility] [id number] LIPID PANEL (59633) 90 mg/dL Normal 0-99 [facility] Work Phone: Comment on above: PATIENT WAS FASTINGP ERFORMED BY: [employer] [place]lin[address] [facility] [id number] LIPID PANEL (48731) 35 mg/dL Normal 5-40 Compr e[facility] Work Phone: Comment on above: PATIENT WAS FASTINGP ERFORMED BY: [employer] [place]lin[address] [facility] [id number] LIPID PANEL (70521) 2.9 {ratio} Normal 0.0-3.2 Comp rehensive Internal [facility]; [facility] Work Phone: Comment on above: LDL/HDL Ratio Men Wo men 1/2 Avg.Risk 1.0 1.5 Avg.Risk 3.6 3.2 2X Avg.Risk 6.2 5.0 3X Avg.Risk 8.0 6.1 PATIENT WAS FASTINGP ERFORMED BY: NIMCO LabRosalinda HayesFlobev2992 [address]za RoadDublin [place] [id number] METABOLIC PANEL, COMPREHENSI VE (77804)Ordered By: Beam Doffer on 02-20-2020 Albumin [Mass/Vol] 4.2 g/dL Normal 3.8-4.8 [facility] Work Phone: Comment on above: PATIENT WAS FASTINGP ERFORMED BY: [employer] LabRosalinda HayesRfngll2077 [address] [facility]in [place] [id number] Albumin/Globulin [Mass ratio] 1.6 {ratio} Normal 1.2-2.2 [facility] Work Phone: Comment on above: PATIENT WAS FASTINGP ERFORMED BY: NIMCO [facility] Chbaco7770 [address] [facility]in [place] [id number] ALP [Catalytic activity/Vol] 79 [iU]/L Normal 39-117 [facility] Work Phone: Comment on above: PATIENT WAS FASTINGP ERFORMED BY: [employer] LabRosalinda HayesVggjml0840 [address] [facility]in [place] [id number] ALP [Catalytic activity/Vol] 79 U/L Normal 39-117 [facility]; [facility] Work Phone: Comment on above: PATIENT WAS FASTINGP ERFORMED BY: [facility] [facility] Tojllk[address]91 [address] [facility]in [place] [id number] ALT [Catalytic activity/Vol] 23 [iU]/L Normal 0-32 [facility] Work Phone: Comment on above: PATIENT WAS FASTINGP ERFORMED BY: [facility] [facility] Jhmhoq9409 [address] [facility]in [place] [id number] ALT [Catalytic activity/Vol] 23 U/L Normal 0-32 [facility]; [facility] Work Phone: Comment on above: PATIENT WAS FASTINGP ERFORMED BY: [facility] Tpqpak8824 [address]Dublin [place] [id number] AST [Catalytic activity/Vol] 17 [iU]/L Normal 0-40 [facility] Medicine Work Phone: Comment on above: PATIENT WAS FASTINGP ERFORMED BY: [facility] Hjnglr6614 [address] RoadDublin [place] [id number] AST [Catalytic activity/Vol] 17 U/L Normal 0-40 [facility]; [facility] Work Phone: Comment on above: PATIENT WAS FASTINGP ERFORMED BY: [employer] [facility] Utkjse7827 [address] RoadDublin [place] [id number] Bilirubin [Mass/Vol] 0.4 mg/dL Normal 0.0-1.2 [facility] Work Phone: Comment on above: PATIENT WAS FASTINGP ERFORMED BY: NIMCO [facility] Mjqbsr4938 [address] RoadDublin [place] [id number] Calcium [Mass/Vol] 9.5 mg/dL Normal 8.7-10.2 [facility] Work Phone: Comment on above: PATIENT WAS FASTINGP ERFORMED BY: NIMCO [facility] Yixxmz9282 [address] RoadDublin [place] [id number] Chloride [Moles/Vol] 106 mmol/L Normal 96-106 [facility] Work Phone: Comment on above: PATIENT WAS FASTINGP ERFORMED BY: [facility] Jqlmca8645 [address]Dublin [place] [id number] CO2 [Moles/Vol] 23 mmol/L Normal 20-29 [facility] Internal Medicine Work Phone: Comment on above: PATIENT WAS FASTINGP ERFORMED BY: [facility] Lcgrao9215 [address]Dublin [place] [id number] Creatinine [Mass/Vol] 0.73 mg/dL Normal 0.57-1.00 [facility] Work Phone: Comment on above: PATIENT WAS FASTINGP ERFORMED BY: [facility] Vycqjr8906 [address]Dublin [place] [id number] GFR/1.73 sq M predicted among blacks CKD-EPI (S/P/Bld) [Vol rate/Area] 125 mL/min/1.73 Normal [facility] Work Phone: Comment on above: PATIENT WAS FASTINGP ERFORMED BY: NIM[employer] [facility] Bwznac5119 [address]blin [place] [id number] GFR/1.73 sq M predicted among non-blacks CKD-EPI (S/P/Bld) [Vol rate/Area] 109 mL/min/1.73 Normal [facility] Work Phone: Comment on above: PATIENT WAS FASTINGP ERFORMED BY: [facility] Mqwrto1541 [address]blin [place] [id number] Globulin (S) [Mass/Vol] 2.6 g/dL Normal 1.5-4.5 [facility] Work Phone: Comment on above: PATIENT WAS FASTINGP ERFORMED BY: [facility] Sbjcqc9372 [address] [facility]in [place] [id number] Glucose [Mass/Vol] 107 mg/dL Abnormal 65-99 [facility] Work Phone: Comment on above: PATIENT WAS FASTINGP ERFORMED BY: [facility] Xdxjgf3730 [address] [facility] [id number] Potassium [Moles/Vol] 4.3 mmol/L Normal 3.5-5.2 [facility] Work Phone: Comment on above: PATIENT WAS FASTINGP ERFORMED BY: [facility] Mieepf6077 [address] [facility]in [place] [id number] Protein [Mass/Vol] 6.8 g/dL Normal 6.0-8.5 [facility] Work Phone: Comment on above: PATIENT WAS FASTINGP ERFORMED BY: [facility] Czbaqw6074 [address] [facility]in [place] [id number] Sodium [Moles/Vol] 141 mmol/L Normal 134-144 [facility] Internal Medicine Work Phone: Comment on above: PATIENT WAS FASTINGP ERFORMED BY: [facility] [id number] Meza RoadDublin [place] [id number] Urea nitrogen [Mass/Vol] 15 mg/dL Normal 6-20 [facility] Work Phone: Comment on above: PATIENT WAS FASTINGP ERFORMED BY: NIMCO [facility] [id number] Mzea RoadDublin [place] [id number] Urea nitrogen/Creatinine [Mass ratio] 21 mg/mg Normal 9-23 [facility] Work Phone: Comment on above: PATIENT WAS FASTINGP ERFORMED BY: [facility] [id number] Meza RoadDublin [place] [id number] MICROALBUMINOrdered By: Venuemob em Pug Machine Operator on 02-20-2020 Albumin DL <= 20 mg/L (U) [Mass/Vol] 10.9 ug/mL Normal Comprehensiv e Internal Medicine Work Phone: Comment on above: PATIENT WAS FASTINGP ERFORMED BY: NIMCO [facility] [id number] [address]Dublin [place] [id number] Albumin/Creatinine (U) [Mass ratio] 7 {mg/g_creat} Normal 0-29 [facility] Work Phone: Comment on above: Normal: 0 - 29 Moder ately increased: 30 - 300 Severely increased: >300 Please note reference interval change PATIENT WAS FASTINGP ERFORMED BY: NIMCO [facility] [id number] Emza RoadDublin [place] [id number] Creatinine (U) [Mass/Vol] 165.1 mg/dL Normal [facility] Work Phone: Comment on above: PATIENT WAS FASTINGP ERFORMED BY: [facility] [id number] [address]Dublin [place] [id number] TSH ([id number])Ordered By: Syste m Pug Machine Operator on 02-20-2020 TSH Qn 1.360 {uIU/mL} Normal 0.450-4.500 [facility] Work Phone: Comment on above: PATIENT WAS FASTINGP ERFORMED BY: [facility] [id number] [address]Dublin [place] [id number] VITAMIN B-12 (CYANOCOBALAMIN ) ([id number])Ordered By: Beam Doffer on 02-20-2020 Cobalamin (Vitamin B12) [Mass/Vol] 222 pg/mL Abnormal [id number] [facility] Work Phone: Comment on above: PATIENT WAS FASTINGP ERFORMED BY: [facility] [id number] [facility] OriginalGood [facility] [id number] CALCIFIDIOL ([id number]) VIT D 25 on 09-25-2015 25-Hydroxyvitamin D2+25-Hydroxyvitamin D3 mass conc 23.7 ng/mL Abnormal 30.0-100.0 [facility] Work Phone: Comment on above: Vitamin D deficiency has been defined by the [place] of[place]icine and an Endocrine Society practice guideline as alevel of serum 25-OH vitamin D less than 20 ng/mL (1,2).The Endocrine Society went on to further define vitamin Dinsufficiency as a level between 21 and 29 ng/mL (2).1. IOM ([place] of [employer]). 2010. Dietary reference intakes for calcium and D. Aparicio [place]: The National Academies Press.2. Henok MF, Sara NC, Jessica PHILLIP, et al. Evaluation, treatment, and prevention of vitamin D deficiency: an Endocrine Society clinical practice guideline. JCEM. 2010; 96(7):1911-30. PATIENT NOT FASTINGP ERFORMED BY: [employer]6370 Do It OriginalGood Hope Hospital [id number] Information: [id number] VITAMIN B-12 (CYANOCOBALAMIN ) ([id number])on 09-25-2015 Cobalamin (Vitamin B12) mass conc 296 pg/mL Normal 211-946 [facility] Work Phone: Comment on above: PATIENT NOT FASTINGP ERFORMED BY: [id number] ExpoPromoterGood [facility] [id number] HgA1C , Office ([id number])Ordere d By: Radha Trent on 07-25-2015 Hemoglobin [...] cm Dr. Odalys Raymond DO Work Phone: [facility] 12-30-2024 15:56-0400 Body mass index (BMI) [Ratio] 50.6 kg/m2 Dr. Odalys Raymond DO Work Phone: [facility] 12-30-2024 15:56-0400 Body temperature 99.1 [degF] Dr. Odalys Raymond DO Work Phone: [facility] 12-30-2024 15:56-0400 Body weight 125.[address] Odalys Raymond DO Work Phone: [facility] 12-30-2024 15:56-0400 Diastolic blood pressure 78 mm[Hg] Dr. Odalys Raymond DO Work Phone: [facility] 12-30-2024 15:56-0400 Heart rate 81 /min Dr. Odalys Raymond DO Work Phone: [facility] 12-30-2024 15:56-0400 Respiratory rate 15 /min Dr. Odalys Raymond DO Work Phone: [facility] 12-30-2024 15:56-0400 SaO2% (BldA) [Mass fraction] 97 % Dr. Odalys Raymond DO Work Phone: [facility] 12-30-2024 15:56-0400 Systolic blood pressure 132 mm[Hg] Dr. Odalys Raymond DO Work Phone: [facility] 10-03-2024 12:19-0400 Body mass index (BMI) [Ratio] 45.87 kg/m2 Annie Loaiza MD Work Phone: [facility] 10-03-2024 12:19-0400 Body weight 113.76 kg Annie Loaiza MD Work Phone: [facility] 10-03-2024 12:19-0400 Diastolic blood pressure 69 mm[Hg] Annie Loaiza MD Work Phone: [facility] 10-03-2024 12:19-0400 Heart rate 73 /min Annie Loaiza MD Work Phone: [facility] 10-03-2024 12:19-0400 Systolic blood pressure 113 mm[Hg] Annie Loaiza MD Work Phone: [facility] 01-19-2024 14:58-0400 Body height 157.5 cm Claudy Cortez MD Work Phone: [facility] 01-19-2024 14:58-0400 Body mass index (BMI) [Ratio] 40.97 kg/m2 Claudy Cortez MD Work Phone: [facility] 01-19-2024 14:58-0400 Body weight 101.61 kg Claudy Cortez MD Work Phone: [facility] 01-19-2024 14:58-0400 Diastolic blood pressure 72 mm[Hg] Claudy Cortez MD Work Phone: [facility] 01-19-2024 14:58-0400 Heart rate 87 /min Claudy Cortez MD Work Phone: [facility] 01-19-2024 14:58-0400 Systolic blood pressure 111 mm[Hg] Claudy Cortez MD Work Phone: [facility] 08-11-2023 15:06-0400 Body height 157.5 cm Claudy Cortez MD Work Phone: [facility] 08-11-2023 15:06-0400 Body mass index (BMI) [Ratio] 41.52 kg/m2 Claudy Cortez MD Work Phone: [facility] 08-11-2023 15:06-0400 Body weight 102.97 kg Claudy Cortez MD Work Phone: [facility] 08-11-2023 15:06-0400 Diastolic blood pressure 79 mm[Hg] Claudy Cortez MD Work Phone: [facility] 08-11-2023 15:06-0400 Heart rate 88 /min Claudy Cortez MD Work Phone: [facility] 08-11-2023 15:06-0400 Systolic blood pressure 121 mm[Hg] Claudy Cortez MD Work Phone: [facility] 10-15-2022 11:49-0400 Body height 157.48 cm [facility] [...] 15:01-0400 Body height 157.48 cm Muna Slarb [facility]; [facility] Work Phone: Comment on above: pt did not report 01-29-2022 15:01-0400 Body mass index (BMI) [Ratio] 45.18 kg/m2 Muna Slarb [facility]; [facility] Work Phone: Comment on above: pt did not report 01-29-2022 15:01-0400 Body surface area Derived from formula 2.09 m2 Muna Slarb [facility]; [facility] Work Phone: Comment on above: pt did not report 01-29-2022 15:01-0400 Body weight 112.04 kg Muna Slarb [facility]; [facility] Work Phone: Comment on above: pt did not report 01-23-2022 11:10-0400 Body height 157.48 cm Jackelin Gravius [facility]; [facility] Work Phone: 01-23-2022 11:10-0400 Body mass index (BMI) [Ratio] 45.18 kg/m2 Jackelin Gravius [facility]; [facility] [...] (BldA) [Mass fraction] 99 % Jackelin Gomes [facility]; [facility] Work Phone: Comment on above: Room air 01-23-2022 11:10-0400 Systolic blood pressure 122 mm[Hg] Jackelin Gomes HOUSEHOLD REFRIGERATOR MECHANIC [facility]; [facility] Work Phone: Comment on above: Patient Position: Sitting; Cuff Location : Left Arm; Cuff Size: Standard 08-19-2021 15:34-0400 Body height 160.[address] Odalys Raymond Work Phone: [facility] Work Phone: 08-19-2021 15:34-0400 Body mass index (BMI) [Ratio] 49.5 kg/m2 Dr. Odalys Raymond Work Phone: [facility] Work Phone: 08-19-2021 15:34-0400 Body temperature 98.2 [degF] Dr. Odalys Raymond Work Phone: [facility] Work Phone: 08-19-2021 15:34-0400 Body weight 126.[address] Odalys Raymond Work Phone: [facility] Work Phone: 08-19-2021 15:34-0400 Diastolic blood pressure 71 mm[Hg] Dr. Odalys Raymond Work Phone: [facility] Work Phone: 08-19-2021 15:34-0400 Heart rate 64 /min Dr. Odalys Raymond Work Phone: [facility] Work Phone: 08-19-2021 15:34-0400 Respiratory rate 15 /min Dr. Odalys Raymond Work Phone: [facility] Work Phone: 08-19-2021 15:34-0400 SaO2% (BldA) [Mass fraction] 96 % Dr. Odalys Raymond Work Phone: [facility] Work Phone: 08-19-2021 15:34-0400 Systolic blood pressure 109 mm[Hg] Dr. Odalys Raymond Work Phone: [facility] Work Phone: 08-14-2021 14:45-0400 Body mass index (BMI) [Ratio] 49.9 kg/m2 Dr. Odalys Raymond Work Phone: [facility] Work Phone: 08-14-2021 14:45-0400 Body weight 127.[address] Odalys Raymond Work Phone: [facility] Work Phone: 08-14-2021 14:45-0400 Diastolic blood pressure 71 mm[Hg] Dr. Odalys Raymond Work Phone: [facility] Work Phone: 08-14-2021 14:45-0400 Heart rate 84 /min Dr. Odalys Raymond Work Phone: [facility] Work Phone: 08-14-2021 14:45-0400 SaO2% (BldA) [Mass fraction] 97 % Dr. Odalys Raymond Work Phone: [facility] Work Phone: 08-14-2021 14:45-0400 Systolic blood pressure 112 mm[Hg] Dr. Odalys Raymond Work Phone: [facility] Work Phone: 07-01-2021 11:06-0500 Body temperature 99.2 [degF] Dr. Odalys Raymond Work Phone: [facility] Work Phone: 07-01-2021 11:06-0500 Diastolic blood pressure 64 mm[Hg] Dr. Odalys Raymnod Work Phone: [facility] Work Phone: 07-01-2021 11:06-0500 Heart rate 100 /min Dr. Odalys Raymond Work Phone: [facility] Work Phone: 07-01-2021 11:06-0500 Respiratory rate 16 /min Dr. Odalys Raymond Work Phone: [facility] Work Phone: 07-01-2021 11:06-0500 SaO2% (BldA) [Mass fraction] 95 % Dr. Odalys Raymond Work Phone: [facility] Work Phone: 07-01-2021 11:06-0500 Systolic blood pressure 127 mm[Hg] Dr. Odalys Raymond Work Phone: [facility] Work Phone: 07-01-2021 05:34-0500 Body mass index (BMI) [Ratio] 52.8 kg/m2 Dr. Odalys Raymond Work Phone: [facility] Work Phone: 07-01-2021 05:34-0500 Body weight [address] Odalys Raymond Work Phone: [facility] Work Phone: 06-27-2021 08:36-0500 Body mass index (BMI) [Ratio] 53.6 kg/m2 Dr. Odalys Raymond Work Phone: [facility] Work Phone: 06-27-2021 08:36-0500 Body temperature 97.4 [degF] Dr. Odalys Raymond Work Phone: [facility] Work Phone: 06-27-2021 08:36-0500 Body weight 133.[address] Odalys Raymond Work Phone: [facility] Work Phone: 06-27-2021 08:36-0500 Diastolic blood pressure 80 mm[Hg] Dr. Odalys Raymond Work Phone: [facility] Work Phone: 06-27-2021 08:36-0500 Heart rate 88 /min Dr. Odalys Raymond Work Phone: [facility] Work Phone: 06-27-2021 08:36-0500 Respiratory rate 18 /min Dr. Odalys Raymond Work Phone: [facility] Work Phone: 06-27-2021 08:36-0500 SaO2% (BldA) [Mass fraction] 96 % Dr. Odalys Raymond Work Phone: [facility] Work Phone: 06-27-2021 08:36-0500 Systolic blood pressure 122 mm[Hg] Dr. Odalys Raymond Work Phone: [facility] Work Phone: 05-20-2021 13:43-0500 Body height 157.48 cm Muna Samantha [facility]; [facility] Work Phone: 05-20-2021 13:43-0500 Body mass index (BMI) [Ratio] 54.5 kg/m2 Muna Chuckierb TRAIN PLANNER [facility]; [facility] Work Phone: 05-20-2021 13:43-0500 Body surface area Derived from formula 2.26 m2 Muna Chuckierb TRAIN PLANNER [facility]; [facility] Work Phone: 05-20-2021 13:43-0500 Body temperature 97.3 [degF] Muna Chuckierb TRAIN PLANNER [facility]; [facility] Work Phone: 05-20-2021 13:43-0500 Body weight 135.17 kg Muna Chuckierb TRAIN PLANNER [facility]; [facility] Work Phone: 05-20-2021 13:43-0500 Diastolic blood pressure 78 mm[Hg] Muna Chuckierb TRAIN PLANNER [facility]; [facility] Work Phone: Comment on above: Patient Position: Sitting; Cuff Location : Left Arm; Cuff Size: Standard 05-20-2021 13:43-0500 Heart rate 93 /min Muna Chuckierb TRAIN PLANNER [facility]; [facility] Work Phone: Comment on above: Pattern: Regular 05-20-2021 13:43-0500 Respiratory rate 16 /min Muna Chuckierb TRAIN PLANNER [facility]; [facility] Work Phone: Comment on above: Pattern: Unlabored 05-20-2021 13:43-0500 SaO2% (BldA) [Mass fraction] 97 % Muna Singh [facility]; [facility] Work Phone: Comment on above: Room air 05-20-2021 13:43-0500 Systolic blood pressure 116 mm[Hg] Muna Singh [facility]; [facility] [...] Standard 11-30-2020 08:29-0400 Body height 157.[address]; [facility] Work Phone: 11-30-2020 08:29-0400 Body mass index (BMI) [Ratio] 56.15 kg/m2 [facility]; [facility] Work Phone: 11-30-2020 08:29-0400 Body mass index (BMI) [Ratio] 56.33 kg/m2 Jackelin Gravius [facility]; [facility] Work Phone: 11-30-2020 08:29-0400 Body surface area Derived from formula 2.[address]; [facility] Work Phone: 11-30-2020 08:29-0400 Body surface area Derived from formula 2.3 m2 Jackelin Gravius [facility]; [facility] Work Phone: 11-30-2020 08:29-0400 Body temperature 97.3 [degF] Jackelin Gravius [facility] Comprehensiv e Internal Medicine; [facility] Work Phone: Comment on above: Method: Infrared 11-30-2020 08:290400 Body weight 139.[address]; [facility] Work Phone: 11-30-2020 08:290400 Body weight 139.71 kg Jackelin Gomes CMA [facility]; [facility] Work Phone: 11-30-2020 08:29-0400 Diastolic blood pressure 70 mm[Hg] Jackelin Gomes HOUSEHOLD REFRIGERATOR MECHANIC [facility]; [facility] Work Phone: Comment on above: Patient Position: Sitting; Cuff Location : Left Arm; Cuff Size: Standard 11-30-2020 08:29-0400 Heart rate 91 /min Jackelin Gomes HOUSEHOLD REFRIGERATOR MECHANIC [facility]; [facility] Work Phone: Comment on above: Pattern: Regular 11-30-2020 08:29-0400 Respiratory rate 16 /min Jackelin Gomes HOUSEHOLD REFRIGERATOR MECHANIC [facility]; [facility] Work Phone: Comment on above: Pattern: Unlabored 11-30-2020 08:29-0400 SaO2% (BldA) [Mass fraction] 95 % Jackelin Gomes HOUSEHOLD REFRIGERATOR MECHANIC [facility]; [facility] Work Phone: Comment on above: Room air 11-30-2020 08:29-0400 Systolic blood pressure 118 mm[Hg] Jackelin Gomes HOUSEHOLD REFRIGERATOR MECHANIC [facility]; [facility] Work Phone: Comment on above: Patient Position: Sitting; Cuff Location : Left Arm; Cuff Size: Standard 02-20-2020 13:03-0400 BMI (Body Mass Index) 56.15 kg/m2 Jackelin Gomes HOUSEHOLD REFRIGERATOR MECHANIC [facility] Work Phone: 02-20-2020 13:03-040 Body Temperature 96.8 [degF] Jackelin Gomes HOUSEHOLD REFRIGERATOR MECHANIC [facility] Work Phone: Comment on above: Method: Infrared 02-20-2020 13:030400 Body weight 139.26 kg Jackelin Gomes HOUSEHOLD REFRIGERATOR MECHANIC [facility] Work Phone: 02-20-2020 13:03-0400 BP Diastolic 70 mm[Hg] Jackelin Gomes HOUSEHOLD REFRIGERATOR MECHANIC [facility] Work Phone: Comment on above: Patient Position: Sitting; Cuff Location : Left Arm; Cuff Size: Standard 02-20-2020 13:03-0400 BP Systolic 101 mm[Hg] Jackelin Gomes CMA [facility] Work Phone: Comment on above: Patient Position: Sitting; Cuff Location : Left Arm; Cuff Size: Standard 02-20-2020 13:03-0400 BSA (Body Surface Area) 2.29 m2 Jackelin Gomes [facility] Work Phone: 02-20-2020 13:03-0400 Height 157.48 cm Jackelin Gomes HOUSEHOLD REFRIGERATOR MECHANIC [facility] Work Phone: 02-20-2020 13:03-0400 Pulse (Heart Rate) 85 /min Jackelin Gomes CMA [facility] Work Phone: Comment on above: Pattern: Regular 02-20-2020 13:03-0400 Pulse Oximetry 94 % Odalys Mandi [facility] Internal Medicine Work Phone: Comment on above: Room air 02-20-2020 13:03-0400 Respiratory Rate 20 /min Jackelin Gomes CMA [facility] Work Phone: Comment on above: Pattern: Unlabored 02-20-2020 13:03-0400 SaO2% (BldA) [Mass fraction] 94 % Jackelin Gomes [facility]; [facility] [...] 13:02-0400 Pulse Oximetry 96 % Odalys Raymond [facility] Work Phone: Comment on above: Room air 01-20-2018 13:02-0400 Respiratory Rate 18 /min Neema Jackson RN [facility] Work Phone: Comment on above: Pattern: Unlabored 01-20-2018 13:02-0400 SaO2% (BldA) [Mass fraction] 96 % Neema Jackson RN [facility]; [facility] Work Phone: Comment on above: Room air 01-20-2018 13:02-0400 Weight 138.01 kg Odalys Raymond [facility] Work Phone: 11-12-2016 09:29-0400 BMI [...] 08:55-0400 Pulse Oximetry 98 % Odalys Raymond [facility] Work Phone: Comment [...] 11:50-0500 Pulse Oximetry 97 % Odalys Raymond [facility] Work Phone: Comment on above: Room air 07-25-2015 11:50-0500 Respiratory Rate 18 /min Neema Jackson RN [facility] Work Phone: Comment on above: Pattern: Unlabored 07-25-2015 11:50-0500 SaO2% (BldA) [Mass fraction] 97 % Neema Jackson RN [facility]; [facility] Work Phone: Comment on above: Room air 07-25-2015 11:50-0500 Weight 125.31 kg Odalys Raymond [facility] Work Phone: 12-27-2014 13:19-0400 BMI (Body Mass Index) 47.62 kg/m2 [facility] Work Phone: 12-27-2014 13:19-0400 Body Temperature 95.9 [degF] [facility] Work Phone: 12-27-2014 13:19-0400 Body weight 118.11 kg [facility] Work Phone: 12-27-2014 13:19-0400 BP Diastolic 70 mm[Hg] [facility] Work Phone: Comment on above: Patient Position: Sitting; Cuff Location : Left Arm; Cuff Size: Standard 12-27-2014 13:19-0400 BP Systolic 120 mm[Hg] [facility] Work Phone: Comment on above: Patient Position: Sitting; Cuff Location : Left Arm; Cuff Size: Standard 12-27-2014 13:19-0400 BSA (Body Surface Area) 2.14 m2 [facility] Work Phone: 12-27-2014 13:19-0400 Height 157.48 cm [facility] Work Phone: 12-27-2014 13:19-0400 Pulse (Heart Rate) 89 /min [facility] Work Phone: Comment on above: Pattern: Regular 12-27-2014 13:19-0400 Pulse Oximetry 97 % Odalys Raymond [facility] Work Phone: Comment on above: Room air 12-27-2014 13:19-0400 SaO2% (BldA) [Mass fraction] 97 % [facility]; [facility] Work Phone: Comment on above: Room air 12-27-2014 13:19-0400 Weight 118.11 kg Odalys Raymond [facility] Work Phone: 11-22-2014 08:54-0400 BMI [...] (Heart Rate) 67 /min Neema Jackson RN [facility] Internal Medicine Work Phone: Comment on above: Pattern: Regular 11-22-2014 08:54-0400 Pulse Oximetry 96 % Odalys Ambrizon [facility] Internal Medicine Work Phone: Comment [...] 12-26-2024 Emergency department patient visit ODALYS K [facility] Start: 12-24-2024 End: 12-24-2024 Emergency department patient visit [facility] Start: 10-03-2024 End: 10-03-2024 ambulatory ANNIE LOAIZA [facility] Start: 10-03-2024 End: 10-03-2024 Office outpatient visit 25 minutes Annie Loaiza MD Work Phone: [facility] Gynecology Comment on above: Secondary oligomenor lu (Primary Dx); Abnormal uterine bleeding; Complete miscarriage; Controlled type 2 diabetes mellitus without complication, without long-term current use of insulin (HCC); Morbid obesity with BMI of 40.0-44.9, adult ([facility]) Start: 09-16-2024 End: 09-16-2024 Emergency department patient visit [facility] Start: 09-08-2024 End: 11-08-2024 Follow-up encounter Claudy Cortez MD Work Phone: [facility] Comment on above: hCG, Blood, Quantita tive Start: 09-05-2024 End: 09-09-2024 ambulatory Mendez Francisco RN [facility] Ob[facility] Gynecology Comment on above: Arrived Start: 03-31-2024 End: 03-31-2024 ambulatory CLAUDY CORTEZ [facility] Start: 03-30-2024 End: 03-30-2024 ambulatory PROVIDER NOT IN SYSTEM [facility] Start: 03-08-2024 End: 03-21-2024 Orders Only Claudy Cortez MD Work Phone: [facility] Obstetrics and Gynecology Comment on above: Screening mammogram for breast cancer (Primary Dx) Start: 01-19-2024 End: 01-19-2024 Patient encounter procedure Claudy Cortez MD Work Phone: [facility] Start: 01-19-2024 End: 01-19-2024 Periodic preventive med est patient 18-39 yrs Claudy Cortez MD Work Phone: [facility]etric[facility] and Gynecology Comment on above: Well woman exam with routine gynecological exam (Primary Dx) Start: 01-19-2024 End: 01-19-2024 ambulatory ODALYS RAYMOND [facility] Start: 01-19-2024 End: 01-19-2024 Encounter for gynecological examination (general) (routine) without abnormal findings CLAUDY CORTEZ [facility] Ambulatory Start: 08-11-2023 End: 08-11-2023 Office outpatient new 30 minutes Claudy Cortez MD Work Phone: [facility] Obstetric[facility] and Gynecology Comment on above: Encounter to [facility] (Primary Dx); Infertility, female Start: 10-17-2022 End: 10-17-2022 Phone Encounter Odayls Raymond DO Work Phone: [facility] Start: 10-15-2022 End: 10-15-2022 Office outpatient visit 25 minutes Odalys Raymond DO Work Phone: [facility] Start: 10-06-2022 ambulatory Odalys Raymond DO [facility] Start: 05-27-2022 End: 05-27-2022 [address] WILLIS FISH [facility] Start: 05-27-2022 End: 05-27-2022 Encounter for general adult medical examination without abnormal findings SHERRIE WHITTEN [facility] Start: 01-29-2022 End: 01-29-2022 Office outpatient visit 15 minutes Odalys Raymond DO Work Phone: [facility] Start: 01-23-2022 End: 02-05-2022 Office outpatient visit 25 minutes Odalys Raymond DO Work Phone: [facility] Start: 11-11-2021 End: 11-11-2021 Annotation/Addendum Odalys Raymond DO Work Phone: [facility] Start: 10-22-2021 End: 10-22-[address] Odalys Raymond Work Phone: [facility] Start: 10-08-2021 End: 10-08-[address] Odalys Raymond Work Phone: [facility]Labor[facility] Start: 08-21-2021 End: 08-21-2021 Prescription Refill Odalys Raymond DO Work Phone: [facility] Start: 08-19-2021 End: 08-19-[address] Odalys Raymond Work Phone: [facility] Start: 08-14-2021 End: 08-14-[address] Odalys Raymond Work Phone: [facility] Start: 08-14-[address] Omaira Raymond Work Phone: [facility] Oncology Start: 07-11-2021 End: 07-11-[address] Odalys Raymond Work Phone: [facility] Start: 07-01-2021 End: 07-01-2021 Phone Encounter Odalys Raymond DO Work Phone: [facility] Start: 07-01-2021 Non-patient / Non-visit Dr. Shira Raymond Work Phone: [facility] Start: 07-01-2021 End: 07-01-2021 Admission to same day surgery center Dr[facility] Start: 06-27-2021 End: 06-27-[address] Odalys Raymond Work Phone: [facility] Start: 05-22-2021 End: 05-22-2021 Annotation/Addendum [...] Office outpatient visit 25 minutes Odalys Raymond [facility] Start: 12-27-2014 End: 12-27-2014 Office outpatient visit 15 minutes Odalys Raymond [facility] Internal Medicine Start: 11-22-2014 End: 11-22-2014 Office outpatient visit 25 minutes Odalys Fernandes [facility] Procedures Date Procedure Procedure Detail Performing Clinician Start: 01-19-2024 Microscopic observation [Identifier] in Cervix by Cyto stain Claudy Cortez MD Work Phone: Start: 10-22-[address] Odalys Raymond Work Phone: Start: 10-22-2021 End: 10-22-2021 SCRN MAMM (CAD)W/KENROY BILAT Comments: See Note; NOTES: [facility] Imaging Services [address] [place] [address] SCRN MAMM (CAD)W/KENROY BILAT MR#: [id number] Acct: [id number] Name: ALMA ULLOA Rep #: [id number] : 1985 F 36 From: Vincent arias MD PCP: Dr. Odalys Raymond, DO Status: REG CLI Study: SCRN MAMM (CAD)W/KENROY BILAT Date of Exam: 09/24 06/15 Exam# [id number] Ordering Dr: Calin Callejas MD MAMMOGRAPHY - [...] delay biopsy of a clinically suspicious abnormality. [id number] Electronically Signed: Vincent Pickard MD at 14:48 EDT Reading Location ID and State: [address] [place] [address] , Service support , CC: Dr. Calin Callejas MD; Dr. Odalys Raymond DO Mason Foreman/Superintendant: Signed Odalys Raymond DO Work Phone: Start: 08-19-2021 End: 08-19-2021 Oncology Visit Report Comments: See Note; NOTES: [facility] [address] [place] [address] [place] [address] OFFICE VISIT Date of Service: 08/19/21 1534 MR#: [id number] Acct: [id number] Name: ALMA ULLOA Rep #: [id number] : 1985 From: Bob Johnson MD Age/Sex: 36/F [place] [facility] [place]: Signed HPI Subjective Date of Service 08/19/21 Chief Complaint F/u for abnormal coagulation. History of Present Illness 36y.o.woman was found to have abnormal coagulation, DRVV was 53 on 04/26/2021 so referred for further evaluation. Had blood work done and comes for follow up. 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 08/19/21 8517 <Electronically signed by Bob Johnson MD> Date Bob Johnson MD Cosigner Signature: Date (if applicable) CC: Odalys Raymond DO Work Phone: Start: 08-14-2021 End: 08-14-2021 Gastroenterology Visit Report Comments: See Note; NOTES: [facility] [address] [place] [address] OFFICE VISIT Date of Service: 08/14/21 MR#: [id number] Acct: [id number] Name: ALMA ULLOA Rep #: [id number] : 1985 Provider: ARLEEN Wallace Age/Sex: 36/F Location: [facility] Status: Signed Intake Vital Signs 08/14/21 14:45 [...] Diarrhea: Status: Acute Plan - Isidra Wallace JOB PRINTER, JOB PRINTER-C: 36 yo female with fatty liver, obesity, [...] 08/14/21 1534 <Electronically signed by Isidra Wallace JOB PRINTER JOB PRINTER-C> Date Isidra Wallace NP JOB PRINTER-C Cosigner Signature: Date (if applicable) CC: Dr. Odalys Raymond, DO Odalys Raymond DO Work Phone: Start: 07-11-2021 End: 07-11-2021 Surgery Visit Report Comments: See Note; NOTES: [facility] [address] [place] [address] OFFICE VISIT Date of Service: 07/11/21 MR#: [id number] Acct: [id number] Name: ALMA ULLOA Rep #: [id number] : 1985 Provider: Dr. 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 Odalys Raymond, Status:[facility] [place] [facility] Problems Associated Problem List Diagnoses (1) Cholelithiasis [...] morbidly obese and this dissection was requiring [employer] retractors and deeper exposure. Holding sutures of [...] material so the second biopsy was performed. [place] that I had an adequate core with [...] Cholangiogram/ O R,Initial Comments: See Note; NOTES: [facility] Imaging Services [address] [place] [address] Cholangiogram/ O R,Initial MR#: [id number] Acct: [id number] Name: ALMA ULLOA Rep #: [id number] : 1985 F 36 From: Vincent arias MD PCP: Dr. Odalys Raymond DO Status: [facility] Study: Cholangiogram/ O R,Initial Date of Exam: 07/01 Exam# [id number] Ordering Dr: Toro Epstein MD STUDY: INTRAOPERATIVE [...] Odalys Raymond DO; Dr. Toro Epstein MD Mason Foreman/Superintendant: Signed Odalys Raymond DO Work Phone: Start: 07-01-2021 Cholangiogram/ O R,Initial Dr. Odalys Raymond Work Phone: Start: 07-01-2021 O.R. Fluoro for C-Arm Dr. Odalys Raymond Work Phone: Start: 07-01-2021 End: 07-01-2021 Discharge Instruction Comments: See Note; NOTES: [facility] Medical Records Department [address] [place] [address] Instructions for Home/Discharge Instructions 07/01/21711 MR#: [id number] Acct: [id number] Name: ALMA ULLOA Rep #: [id number] : 1985 36 From: Toro Epstein MD PCP: Dr. Odalys Raymond DO Status:DEP [facility] [place] Discharge Instructions Procedure General Surgery Diet Discharge [...] Up With: Toro Epstein MD When: Call [phone] to make an appointment to be seen [...] and Physical Exam Comments: See Note; NOTES: [facility] Medical Records Department [address] [place] [address] History Physical Exam 07/01/21 0657 MR#: [id number] Acct: [id number] Name: ALMA ULLOA Rep #: [id number] : 1985 36 From: Toro Epstein MD PCP: Dr. 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 There are multiple ongoing medical issues and [...] Surgery Visit Report Comments: See Note; NOTES: [facility] [address] [place] [address] OFFICE VISIT Date of Service: 06/27/21 MR#: [id number] Acct: [id number] Name: ALMA ULLOA Rep #: [id number] : 1985 Provider: Dr. 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 Coding Level of Care Code 01542 Diagnoses Fatty liver K76.0 Cholelithiasis K80.10 Cholelithiasis [...] Gastroenterology Visit Report Comments: See Note; NOTES: [facility] Gastroenterology [address] [place] [address] OFFICE VISIT Date of Service: 06/07/21 MR#: [id number] Acct: [id number] Name: ALMA ULLOA Rep #: [id number] : 1985 Provider: ARLEEN Wallace Age/Sex: 36/F Location: [facility] Status: Signed Intake Intake Visit Reasons: [...] and well groomed Quality Reporting Tobacco Screening ([facility] 138) Smoking Status: Never smoker Assessment [...] 06/07/21 1430 <Electronically signed by Isidra Wallace JOB PRINTER JOB PRINTER-C> Date Isidra Wallace JOB PRINTER JOB PRINTER-C Cosigner Signature: Date (if applicable) CC: DO Odalys Delgado DO Work Phone: Start: 05-23-2021 End: 01-29-2022 Colonoscopy Report Comments: See Note; NOTES: [facility] Medical Records Department [address] [place] [address] Colonoscopy Report MR#: [id number] Acct: [id number] Name: ALMA ULLOA Rep #: [id number] : 1985 36 From: Joe Arias DO PCP: Dr. Odalys Raymond DO Status:REG [facility] [place] Patient Name: Alma Ulloa Procedure Date: 05/23/2021 [...] 2 weeks. Procedure Code(s): --- Professional --- 34820, Colonoscopy, flexible; with biopsy, single or multiple 95064, 59, Moderate sedation services provided by the same physician or other qualified health critical care nurse practitioner performing the diagnostic or therapeutic service that the sedation supports, requiring the presence of an independent trained observer to assist in the monitoring of the patient's level of consciousness and physiological status; initial 15 minutes of intraservice time, patient age 5 years or older CPT copyright 2017 [employer]. All rights reserved. The codes documented in this report are preliminary and upon fish butcher review may be revised to meet current compliance requirements. Joe Arias DO 05/23/2021 9:33:49 AM This report has been signed electronically. Number of Addenda: 0 Note Initiated On: 05/23/2021 9:07 AM 05/23/21932 Date Joe Arias DO Cosigner Signature: Date (if indicated) CC: Dr. Odalys Raymond DO; Joe Arias DO Date Dictated: 05/23/21906 Date Transcribed: Mason Foreman/Superintendant: ERIC Signed Odalys Raymond DO Work Phone: Start: 05-23-2021 End: 01-29-2022 EGD Report Comments: See Note; NOTES: [facility] Medical Records Department [address] [place] [address] [place] [address] EGD Report MR#: [id number] Acct: [id number] Name: ALMA ULLOA Rep #: [id number] : 1985 36 From: Joe Arias DO PCP: Dr. Odalys Raymond DO Status:[facility] Patient Name: Alma Ulloa Procedure Date: 05/23/2021 [...] 2 weeks. Procedure Code(s): --- Professional --- 42147, 59, Esophagogastroduodenoscopy , flexible, transoral; with biopsy, single or multiple 86044, 59, Moderate sedation services provided by the same physician or other qualified health critical care nurse practitioner performing the diagnostic or therapeutic service that the sedation supports, requiring the presence of an independent trained observer to assist in the monitoring of the patient's level of consciousness and physiological status; initial 15 minutes of intraservice time, patient age 5 years or older CPT copyright 2017 [employer]. All rights reserved. The codes documented in this report are preliminary and upon fish butcher review may be revised to meet current compliance requirements. Joe Arias DO 05/23/2021 9:10:22 AM This report has been signed electronically. Number of Addenda: 0 Note Initiated On: 05/23/2021 8:47 AM 05/23/2110 Date Joe Arias DO Cosigner Signature: Date (if indicated) CC: Dr. Odalys Raymond DO; Joe Arias DO Date Dictated: 05/23/21846 Date Transcribed: Mason Foreman/Superintendant: ERIC Signed Odalys Raymond DO Work Phone: Start: 05-23-2021 End: 05-23-2021 History and Physical Exam Comments: See Note; NOTES: [facility] Medical Records Department [address] [place] [address] History Physical Exam 05/23/21 0837 MR#: [id number] Acct: [id number] Name: ALMA ULLOA Rep #: [id number] : 1985 36 From: Joe Arias DO PCP: Dr. Odalys Raymond DO Status:[facility] Location: [place] [address] History and Physical Date of Admission: 05/23/21 [...] Affect: normal affect Quality Reporting Tobacco Screening ([facility] 138) Smoking Status: Never smoker Assessment [...] Oncology Visit Report Comments: See Note; NOTES: [facility] [address] [place] [address] OFFICE VISIT Date of Service: 05/22/21 1527 MR#: [id number] Acct: [id number] Name: ALMA ULLOA Rep #: [id number] : 1985 From: Bob Johnson MD Age/Sex: 36/F Location: [facility] Status: Signed HPI Subjective Date of Service 05/22/21 Chief Complaint Referred for abnormal coagulation. History of Present Illness 36y.o.woman was found to have abnormal coagulation, DRVV was 53 on 04/26/2021 so referred for further evaluation. 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 Odalys Raymond, DO Status: [facility] CLI Study: Liver Date of Exam: 05/20/21 Exam# [id number] Ordering Dr: Joe Arias DO STUDY: ABDOMINAL [...] Liver stiffness measurements were obtained on a [employer] RS 85 ultrasound machine using a CA [...] EST , Service support , CC: Dr. Odalys Raymond DO; Joe Arias, Mason Foreman/Superintendant: Signed Odalys Raymond DO Work Phone: Start: 04-26-2021 End: 04-26-2021 Gastroenterology Visit Report Comments: See Note; NOTES: [facility] [address] [place] [address] OFFICE VISIT Date of Service: 04/26/21 MR#: [id number] Acct: [id number] Name: ALMA ULLOA Rep #: [id number] : 1985 Provider: Joe Arias DO Age/Sex: 35/F Location: [facility] Status: Signed Intake Vital Signs 04/26/21 13:37 Height 5 ft 2 in Weight: 303 lb 4 oz BMI 55.4 Intake Visit Reasons: IBS? Allergies No Known Allergies Allergy (Verified 11/23/20 21:32) [facility] Medical History (Updated 04/26/21 @ 14:07 by [...] Appearance: average body habitus and well nourished [facility] Head: normal to inspection Ears: hearing grossly [...] Affect: normal affect Quality Reporting Tobacco Screening ([facility] 138) Smoking Status: Never smoker Assessment [...] Emergency Department Summary Comments: See Note; NOTES: [facility] Medical Records Department [address] [place] [address] Emergency Department Summary 11/23/20 MR#: [id number] Acct: [id number] Name: ALMA ULLOA Rep #: [id number] : 1985 35 From: Elder Amos DO [...] sinus tachycardia with a rate of 105. HI interval, QRS interval, and QTc intervals were all normal. [place] was normal. There are no acute ST [...] (Auto) 71.8 H Lymph % (Auto) 20.3 [place] % (Auto) 5.0 Eos % (Auto) 1.1 [...] Esau Cunningham DO at 23:27 EDT Tel [phone], Service support , EKG Initial EKG: Attestation: [...] your Primary Care Provider. Call [facility] ([phone]) or report to the closest Emergency Room. Call 911 if necessary. 11/24/20 1836 <Electronically signed by Elder Amos DO> Cosigner Signature (if applicable): CC: Dr. Odalys Raymond DO Signed Odalys Raymond DO Work Phone: Start: 11-23-2020 End: 11-28-2020 12 Lead EKG Comments: See Note; NOTES: [facility] Cardiovascular Services [address] [place] [address] 12 Lead EKG 11/23/202136 MR#: [id number] Acct: [id number] Name: ALMA ULLOA Rep #: [id number] : 1985 35 From: Missael Morse MD [...] normal ECG Confirmed by MAGO SINCLAIR, MISSAEL ([id number]), news videotape editor LIA BOOKER ([id number]) on 11/28/2020 1:37:14 PM Referred By: TL/ES Confirmed By:MISSAEL MORSE MD 11/28/20 1337 Date Missael Morse MD CC: Dr. Elder Amos DO; Dr. Odalys Raymond DO Signed Odalys Raymond DO Work Phone: Start: 11-23-2020 End: 11-23-2020 CTA Chest W/WO Contrast Comments: See Note; NOTES: [facility] Imaging Services [address] [place] [address] CTA Chest W/WO Contrast MR#: [id number] Acct: [id number] Name: ALMA ULLOA Rep #: [id number] : 1985 F 35 From: Esau Cunningham DO PCP: Dr. Odalys Raymond DO Status: REG ER Study: CTA Chest W/WO Contrast Date of Exam: 11/23/20 Exam# [id number] Ordering Dr: Elder Amos DO STUDY: CTA [...] Esau Cunningham DO at 23:27 EDT Tel [phone], Service support , CC: Dr. Elder Amos DO; Dr. Odalys Raymond DO Mason Foreman/Superintendant: Signed Odalys Raymond DO Work Phone: Start: 12-01-2016 End: 12-01-2016 PT D/C Summary (1) Comments: See Note; NOTES: [facility] Physical Therapy [facility] [address] [place] [address] Fax REHABILITATION SERVICES DISCHARGE SUMMARY MR#: [id number] Acct: [id number] Name: ALMA ULLOA Rep #: [id number] : 1985 31 From: Shashank Jara PT, Cert. T, OCS Referring Dr.: Odalys Raymond DO Status: REG RCR Insurance: [facility] - PT D/C Summary It has [...] please feel free to call me at [phone]. Thank you for the referral of this patient. Sincerely, Shashank Jara PT, <Electronically signed by Shashank Jara PT, Cert. TAYLA, OCS> 12/01/16 9659 CC: Odalys Raymond DO JLA Signed Odalys Raymond Start: 11-18-2016 End: 11-18-2016 Inital Evaluation (1) - PT Comments: See Note; NOTES: [facility] Physical Therapy [facility] [address] [place] [address] Fax REHABILITATION SERVICES INITIAL EVALUATION MR#: [id number] Acct: [id number] Name: ALMA ULLOA Rep #: [id number] : 1985 31 From: Shashank Jara PT, Cert. MDT, OCS Referring Dr.: Odalys Raymond DO Status: REG RCR Insurance: [facility] Patient's Visit Information ALMA ULLOA [...] to be FAXED BACK to us at [phone] for Medicare purposes. Please let me know if there are questions or concerns regarding this plan of care. Physician Signature: Date: <Electronically signed by Shashank Jara PT, Cert. MDT, OCS> 11/18/16 9174 CC: Odalys Raymond DO JLA Signed For Medicare only, by signing this I certify the plan of care. __ Physicians Signature Date Odalys Raymond Start: 12-08-2014 End: 12-10-2014 Thyroid Comments: See Note; NOTES: [facility] Imaging Services [address] [place] [address] Ultrasound Report MR#: [id number] Acct: [id number] Name: ALMA ULLOA Rep #: [id number] : 1985 F 29 From: Jose Alvarenga DO PCP: Jovanni Pfeiffer MD Status: REG CLI Study: Thyroid Date of Exam: 12/08/14 Exam# [id number] Ordering Dr: Odalys Raymond DO STUDY: THYROID [...] Jose Alvarenga DO at 9:30 EDT Tel [phone], Service support [phone], CC: Jovanni Pfeiffer MD; Odalys aRymond DO Mason Foreman/Superintendant: Signed Odalys Raymond Work Phone: Start: 11-22-2014 End: 11-22-2014 No Known Past Surgical History Neema Messenger History of cholecystectomy S/P cholecystectomy 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 surgery done 07/01/21 . Operation on gallbladder Ang cherry Slarb TRAIN PLANNER Comment on above: removal with dr jossy Zaidi liver and gallbl adder biopsies obtained awaiting result. surgery done 07/01/21 . Operation on gallbladder Dak quotation clerk [place] TRAIN PLANNER Comment on above: removal with dr jossy Zaidi liver and gallbl adder biopsies obtained awaiting result. surgery done 07/01/21 . Plan of Treatment Date Care Activity Detail Author Start: 2061 Respiratory Syncytial Virus Immunization: Risk, 60-74 Risk, or 75+ (1 - 1-dose 75+ series) Respiratory Syncytial Virus Immunization: Risk, 60-74 Risk, or 75+ (1 - 1-dose 75+ series) [facility] Start: 01-18-2029 Screening for malignant neoplasm of cervix [facility] Start: 01-10-2028 Tetanus vaccination Tetanus: Every 10yrs [facility] Start: 01-18-2027 Screening for malignant neoplasm of cervix Pap Smear [facility] Start: 09-16-2025 eGFR Diabetes eGFR Diabetes [facility] Start: 09-16-2025 Urine screening for protein eGFR Diabetes [facility] Start: 01-18-2025 History and physical examination, annual for health maintenance Wellness Visit [facility] Start: 12-14-2024 Urine screening for protein [facility] Start: 08-25-2024 Hemoglobin A1c measurement A1C [facility] Start: 03-31-2024 End: 03-31-2024 Patient encounter procedure 03/31/2024 3:30 PM EST Appointment [facility] [address] [place] [phone] [facility] Start: 01-24-2024 Influenza vaccination Influenza Vaccine (#1) [facility] Start: 12-11-2023 Hemoglobin A1c measurement A1C [facility] Start: 04-17-2023 Hemoglobin A1c measurement A1C [facility] Start: 10-15-2022 Procedure Education Eprescribed prescriptions (G8553) [facility]; [facility] Work Phone: Start: 10-15-2022 Provider Instructions for Treatment [facility] Work Phone: Start: 01-29-2022 25 hydroxy includes fractions if performed CALCIFEDIOL (53757) [facility]; [facility] Work Phone: Start: 01-29-2022 Blood count complete auto&auto difrntl wbc CBC, PLATELETS & AUT DIFF (31757) [facility]; [facility] Work Phone: Start: 01-29-2022 Cyanocobalamin vitamin b-12 VITAMIN B-12 (CYANOCOBALAMIN) (12988) [facility]; [facility] Work [...] spec home use Blood Glucose , Office (96276) [facility]; [facility] Work Phone: Start: 07-01-2021 Anes intraperitoneal upper abdomen w/laps nos ANESTH SURG UPPER ABDOMEN [facility] Work Phone: Start: 07-01-2021 Bx lvr ndl done purpose tm oth major px NEEDLE BIOPSY LIVER ADD-ON [facility] Work Phone: Start: 07-01-2021 Laps surg cholecystectomy w/cholangiography LAPARO CHOLECYSTECTOMY/GRAPH [place] [facility] Work Phone: Start: 05-22-2021 Cyanocobalamin vitamin b-12 VITAMIN B-12 (CYANOCOBALAMIN) (52558) [facility]; [facility] Work [...] stick/tablet reagent auto microscopy URINALYSIS, W/ MICRO (59811) [facility]; [facility] Work Phone: Start: 11-30-2020 Procedure Education Eprescribed prescriptions (G8553) [facility]; [facility] Work Phone: Start: 11-30-2020 Provider Instructions for Treatment [facility]; [facility] Work Phone: Start: 11-30-2020 Culture bct isol&prsmptv id isolate ea urine URINE GREG CULTURE-IDENTIFICATN (53440) [facility]; [facility] Work Phone: Start: 02-20-2020 Procedure Education Eprescribed prescriptions (G8553) [facility] Work Phone: Start: 02-20-2020 Provider Instructions for Treatment [facility] Work Phone: Start: 02-20-2020 Lipid panel LIPID PANEL (61505) [facility] Work Phone: Start: 02-20-2020 HbA1c (Bld) [Mass fraction] HgA1C , Office (12069) [facility] Work Phone: Start: 02-20-2020 Urine albumin quantitative MICROALBUMIN: CREATININE RATIO (15804) AND (35195) [facility] Work Phone: Start: 02-20-2020 Blood count complete automated CBC (AUTO) (15504) [facility] Work Phone: Start: 02-20-2020 Comprehensive metabolic panel METABOLIC PANEL, COMPREHENSIVE (00928) [facility] Work Phone: Start: 02-20-2020 TSH Qn TSH (40182) [facility] Work Phone: Start: 02-20-2020 25 hydroxy includes fractions if performed CALCIFIDIOL (36594) VIT D 25 [facility] Work Phone: Start: 02-20-2020 Cobalamin (Vitamin B12) [Mass/Vol] VITAMIN B-12 (CYANOCOBALAMIN) (17804) [facility] Work Phone: Start: 10-14-2018 Procedure Education Eprescribed prescriptions (G8553) [facility] Work Phone: Start: 10-14-2018 Provider Instructions for Treatment Continue Current Prescription(s) [facility] Work Phone: Start: 01-20-2018 Procedure Education Eprescribed prescriptions (G8553) [facility] Work Phone: Start: 2016 Screening for malignant neoplasm of cervix [facility] Start: 10-05-2015 Provider Instructions for Treatment [facility] [...] 25 hydroxy includes fractions if performed CALCIFIDIOL (54839) VIT D 25 [facility] Work Phone: Start: 11-22-2014 Assay of thyroid stimulating hormone tsh TSH (98154) [facility]; [facility] Work Phone: Start: 11-22-2014 Thyrotropin Qn TSH (53818) [facility] Work Phone: Start: 11-22-2014 Assay of free thyroxine T4, FREE (THYROXINE) (02395) [facility]; [facility] Work Phone: Start: 11-22-2014 T4 free mass conc T4, FREE (THYROXINE) (78000) [facility] Work Phone: Start: 11-22-2014 Assay of triiodothyronine t3 free T3, FREE (TRIDOTHYRONINE) (77545) [facility]; [facility] Work Phone: Start: 11-22-2014 T3 free mass conc T3, FREE (TRIDOTHYRONINE) (48619) [facility] Work Phone: Start: 11-22-2014 Hemoglobin A1c/Hemoglobin.total mass fraction (Bld) HgA1C , Office (22884) [facility] Work Phone: Start: 11-22-2014 Hemoglobin glycosylated a1c HgA1C , Office (23267) [facility]; [facility] Work Phone: Start: 2007 Screening for malignant neoplasm of cervix Pap Smear [facility] Start: 2005 Pneumococcal Vaccine: Ped or At-Risk (1 of 2 - PCV) Pneumococcal Vaccine: Ped or At-Risk (1 of 2 - PCV) [facility] Start: 2004 Hepatitis C screening Hepatitis C Screening [facility] Start: 2001 HIV screening HIV Screening [facility] Start: 1998 Depression screening using PHQ-9 (Patient Health Questionnaire 9) score [facility] Start: 1996 Diabetic foot examination Diabetic Foot Exam [facility] Start: 1996 Glaucoma screening Diabetic Eye Exam [facility] Start: 1996 Urine screening for protein Urine Microalbumin [facility] Start: 1989 History and physical examination, annual for health maintenance Wellness Visit [facility] Bacteria identified in Throat by Culture [facility] End: 01-13-2025 Chlamydia trachomatis rRNA assay Chlamydia/GC/Trichomon as Amplified RNA Microbiology Routine Well woman exam with routine gynecological exam 1 Occurrences starting 01/19/2024 until 01/13/2025 [facility] Comment on above: 1 Occurrences starting 01/19/2024 until 01/13/2025 Chlamydia trachomati s rRNA assay Chlamydia/GC/Trichomon as Amplified RNA Microbiology Routine Well woman exam with routine gynecological exam 01/19/2024 3:42 PM EDT [facility] End: 09-05-2025 Choriogonadotropin [Units/volume] in Serum or Plasma hCG, Blood, Quantitative Lab Routine , unspecified gestational age 1 Occurrences starting 09/05/2024 until 09/05/2025 [facility] Work Phone: Comment on above: 1 Occurrences starting 09/05/2024 until 09/05/2025 End: 10-03-2025 Choriogonadotropin [Units/volume] in Serum or Plasma hCG, Blood, Quantitative Lab Routine Secondary oligomenorrhea Abnormal uterine bleeding 2 Occurrences starting 10/03/2024 until 10/03/2025 [facility] Comment on above: 2 Occurrences starting 10/03/2024 until 10/03/2025 End: 05-08-2025 MG Breast - bilateral Screening Mammography Screening [place] Bilateral Imaging Routine Screening mammogram for breast cancer 1 Occurrences starting 03/08/2024 until 05/08/2025 [facility] Work Phone: Comment on above: 1 Occurrences starting 03/08/2024 until 05/08/2025 Microscopic examinat ion of vaginal Papanicolaou smear Thinprep Pap Smear Pathology and Cytology Routine Well woman exam with routine gynecological exam Ordered: 01/19/2024 [facility] Work Phone: Comment on above: Ordered: 01/19/2024 Neisseria gonorrhoea e nucleic acid detection Chlamydia/Gonorrhoeae Amplified RNA Microbiology Routine Well woman exam with routine gynecological exam 01/19/2024 3:42 PM EDT [facility] Patient referral [facility] Work Phone: End: 10-03-2025 Progesterone [Mass/volume] in Serum or Plasma Progesterone Lab Routine Secondary oligomenorrhea Abnormal uterine bleeding 2 Occurrences starting 10/03/2024 until 10/03/2025 [facility] Work Phone: Comment on above: 2 Occurrences starting 10/03/2024 until 10/03/2025 SARS-CoV-2 (COVID-19 ) Ag [Presence] in Upper respiratory specimen by Rapid immunoassa [facility] Trichomonas vaginali s Amplified RNA Trichomonas vaginalis Amplified RNA Microbiology Routine Well woman exam with routine gynecological exam 01/19/2024 3:42 PM EDT [facility] End: 09-05-2025 US transabdominal and transvaginal for in first trimester US Obstetric TransvaginaL First Trimester Imaging Routine , unspecified gestational age 1 Occurrences starting 09/05/2024 until 09/05/2025 [facility] Comment on above: 1 Occurrences starting 09/05/2024 [...] Immunization Date Immunization Notes Care Provider Fa [facility] 02-26-2023 Influenza, injectabl e, Madin Princess Canine Kidney, preservative free, quadrivalent Claudy Cortez MD Work Phone: [facility] 02-26-2023 influenza virus vaccine, unspecified formulation Claudy Cortez MD Work Phone: [facility] 02-19-2022 Influenza, injectabl e, Madin [place] Canine Kidney, preservative free, quadrivalent Claudy Cortez MD Work Phone: [facility] 01-20-2021 influenza, seasonal, injectable Claudy Cortez MD Work Phone: [facility] 01-07-2021 Covid (Pfizer) Dr. Odalys Raymond Work Phone: [facility] Work Phone: 01-09-2018 tetanus toxoid, redu kendall diphtheria toxoid, and acellular pertussis vaccine, adsorbed Claudy Cortez MD Work Phone: [facility] 01-05-2018 influenza, injectabl e, quadrivalent, preservative free Claudy Cortez MD Work Phone: [facility] 01-12-2017 influenza, injectabl e, quadrivalent, preservative free Claudy Cortez MD Work Phone: [facility] 01-17-2016 influenza, injectabl e, quadrivalent, preservative free Claudy Cortez MD Work Phone: [facility] 12-19-2014 influenza, seasonal, injectable, preservative free Claudy Cortez MD Work Phone: [facility] 12-19-2014 tetanus toxoid, redu kendall diphtheria toxoid, and acellular pertussis vaccine, adsorbed Claudy Cortez MD Work Phone: [facility] 06-02-2009 novel [id number], preservative-free, injectable Claudy Cortez MD Work Phone: [facility] Payers Date Payer Category Payer Unknown [id number] 2015 Unknown [id number] 2015 Private Health Insurance [id number] 2014 Unknown [id number] 1986 Unknown [id number] 1986 Unknown [id number] 1986 Unknown [id number] 1986 Unknown [id number] 1986 Unknown [id number] 1986 Unknown [id number] 1986 Unknown [id number] 1985 Unknown [id number] 1985 Unknown [id number] Self-pay SELF PAY INSURANCE [id number] Unknown Unknown [id number] Unknown [id number] Social History Date Type Detail Facility Alcohol Use: Never smoker [facility] Work Phone: Start: 08-11-2023 End: 10-09-2024 Caffeine Use [facility] Work Phone: Comment on above: [...] Medicine Work Phone: Living Situation: Living Situation: [facility]; [facility] Work Phone: Pets/Animals: Pets/Animals: [facility]; [facility] Work Phone: Tobacco use: Tobacco use: [facility] Work Phone: Start: 08-14-2021 Tobacco smoking status NHIS Unknown if ever smoked [facility] Work Phone: Start: 1985 Sex Assigned At Female [facility] Start: 08-14-2021 End: 08-11-2023 Tobacco smoking status NHIS Never smoked tobacco [facility] Start: 08-11-2023 Tobacco use and exposure Smokeless tobacco non-user [facility] Start: 08-11-2023 End: 09-05-2024 Alcohol intake Ex-drinker (finding) [facility] Start: 08-11-2023 End: 10-09-2024 Tobacco use panel [facility] Start: 1985 Sex Assigned At Not on file [facility] Start: 01-18-2024 Gender identity Identifies as female gender (finding) [facility] NEGATED: Highlighted rowStart: NINF History of tobacco use Passive smoker [facility] Medical Equipment Procedure Code Equipment Code Equipment Origin al Text Equipment Identifier Dates Total cholecystectomy with exploration of common bile duct Ligation clip, synthetic polymer, non-bioabsorbable [id number] [facility] Start: 07-01-2021 syringe with nee dle 1 [...] function Level Of Cons ciousness Awake;Follows Commands [facility] Work Phone: 07-01-2021 Cognitive function Voice/Name [facility] Work Phone: Clinical Notes 05-23-2021 to 10-03-2024 Annie Loaiza MD - 10/03/2024 1:11 PM EDTMendez Francisco RN - 09/05/2024 1:00 PM Claudy Gurrola MD - 01/19/2024 3:21 PM EDT Note [...] normal. Musculoskeletal: Cerv (more content not included)... [facility] 10-03-2024 History of Present illness Narrative Subjective [...] is 35 minutes. documented in this encounter [facility] 09-16-2024 Note Gynecology Consultat ion Assessment/Plan: A/P: [...] pain as well as 5 tablets of Warriors Mark as needed for any severe cramping due [...] all questions. Re (more content not included)... [facility] 09-05-2024 History of Present illness Narrative Phone [...] Surgical History: Procedure Laterality Date CHOLECYSTECTOMY 06/2021 [facility] Family Hx: Family History Problem Relation Age of Onset Hypertension Mother Hypertension Father Stroke Father Breast cancer Paternal Aunt Breast cancer Paternal Aunt Breast cancer Paternal Grandmother Diabetes Paternal Grandmother Genetic Hx: Please add what is listed under genetic hx tab if anything is answered YES by patient - No COVER INSPECTOR Hx: COVER INSPECTOR surg/biopsies (any hx of leep, cold cone biopsy, cervical surgeries): no Hx of STI: (recent GC/CT/Trich, hx of HSV, hx of HIV, hx of Hep C): had Trich 2020 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 no Nursing Education: Oriented to our practice, we have 3 offices ([place], [place], & [place]). We only do deliveries at [facility] ([address] [place] [address]), office policies reviewed, HCG and Dating US ordered. Dating US to be scheduled after HCG read by provider. Encouraged to use [employer] for general questions, but concerns should be [...] call the office or report to the [facility] emergency room. Once the office receives your [...] Disp: , Rfl: documented in this encounter [facility] 01-19-2024 Note Well woman visit Sub Alma [...] Surgical History: Procedure Laterality Date CHOLECYSTECTOMY 06/2021 [facility] Any family history of: Breast cancer: [...] screening Claudy Cortez MD Obstetrics and Gynecology [facility] [address] [place] [address] Claudy Cortez MD AUTHENTICATED BY CLAUDY CORTEZ, ON 01/19/2024 17:51:30 [facility] 01-19-2024 History of Present illness Narrative Images [...] Surgical History: Procedure Laterality Date CHOLECYSTECTOMY 06/2021 [facility] Any family history of: Breast cancer: [...] screening Claudy Cortez MD Obstetrics and Gynecology [facility] [address] [place] [address] Claudy Cortez MD documented in this encounter [facility] 08-11-2023 History of Present illness Narrative Images from the original note were not included. COVER INSPECTOR VISIT Subjective Alma Ulloa is a 38 [...] Surgical History: Procedure Laterality Date CHOLECYSTECTOMY 06/2021 [facility] No Known Allergies Any family history [...] conception -Patient will follow up as needed 3.COVER INSPECTOR Care -Patient to follow up pap smear in 2021 results 30 min visit spent on counseling and coordination of care. Claudy Cortez MD Obstetrics and Gynecology [facility] [address] [place] [address] documented in this encounter [facility] 07-01-2021 Note [facility] Medical Records Department [address] [place] [address] History Physical Exam 07/01/21 0657 MR#: [id number] Acct: [id number] Name: ALMA ULLOA Rep #: [id number] : 1985 36 From: Toro Epstein MD PCP: Dr. Odalys Raymond, DO Status:[facility] Location: [place] [address] History and Physical Date of Admission: 07/01/21 Intake Visit Reasons: GALLBLADDER Chief Complaint: Gallstone [employer] Required: No Is patient in pain?: No [...] SUBCUT QWEEK ml 06/27/21 [History Confirmed 06/27/21] [facility] Medical History (Updated 06/27/21 @ 10:12 by [...] injury, eye surg (more content not included)... [facility] 05-23-2021 Note [facility] Medical Records Department [address] [place] [address] History Physical Exam 05/23/21 0837 MR#: [id number] Acct: [id number] Name: ALMA ULLOA Rep #: [id number] : 1985 36 From: Joe Friend DO PCP: Dr. Odalys Raymond, DO Status:[facility] Location: [place] [address] History and Physical Date of Admission: 05/23/21 [...] Appearance: average body habitus and well nourished HENMO Head: normal to inspection Ears: hearing grossly [...] Affect: normal affect Quality Reporting Tobacco Screening ([facility] 138) Smoking Status: Never smoker Assessment [...] Odalys Raymond DO; Joe Arias DO Signed [facility] Evaluation note Diagnosis Onset Date Cholelithiasis acute Fatty liver acute Cholelithiasis with chronic cholecystitis chronic Fatty (change of) liver, not elsewhere classified acute Cholelithiasis with chronic cholecystitis chronic Fatty liver acute Hepatitis acute Cholelithiasis with chronic cholecystitis chronic Diarrhea acute Fatty liver acute Abnormal coagulation profile [facility] Work Phone: Evaluation note* Diagnosis Onset Date Resolution Status Fatty (change of) liver, not elsewhere classified acute Cholelithiasis with chronic cholecystitis chronic Fatty liver acute Hepatitis acute Cholelithiasis with chronic cholecystitis chronic Diarrhea acute Fatty liver acute Abnormal coagulation profile [facility] Work Phone: Evaluation note* Diagnosis Encounter to establish care- Primary Infertility, female [facility] Diagnosis Well woman exam with routine gynecological exam- Primary Routine gynecological examination [facility] Scre[facility] mamm[facility] for breast cancer- Primary [facility] Diagnosis , unspecified gestational age- Primary [facility] Diagnosis Secondary oligomenorrhea- Primary Scanty or infrequent menstruation Abnormal uterine bleeding Unspecified disorder of menstruation and other abnormal bleeding from female genital tract Complete miscarriage Complete spontaneous without mention of complication Controlled type 2 diabetes mellitus without complication, without long-term current use of insulin (HCC) Morbid obesity with BMI of 40.0-44.9, adult (HCC) [facility] noteNo assessment information availableAd[facility] Work Phone: Instructions* Name Dates Details How [...] Informa tion Online using Patient Portal and Gip[employer] Apps Indication:Non-smoker Start:30-Nov-2020 Instruction Type:Patient Education Patient [...] Informa tion Online using Patient Portal and Gip[employer] Apps Indication:Non-smoker Start:30-Nov-2020 Instruction Type:Patient Education Patient [...] Informa tion Online using Patient Portal and [employer] Apps Indication:Non-smoker Start:30-Nov-2020 Instruction Type:Patient Education Patient [...] Informa tion Online using Patient Portal and [employer] Apps Indication:Non-smoker Start:30-Nov-2020 Instruction Type:Patient Education Patient [...] tion Online using Patient Portal and 3rd [employer] Apps Indication:Type II diabetes mellitus, well controlled Start:20-May-2021 Instruction Type:Patient Education Patient Instructions Indication:Type II diabetes mellitus, well controlled Start:08-Feb-2021 Instruction Type:Provider Instructions for Treatment How to Access Health Informa tion Online using Patient Portal and 3rd [employer] Apps Indication:Type II diabetes mellitus, well controlled Start:08-Feb-2021 Instruction Type:Patient Education How to Access Health Informa tion Online using Patient Portal and 3rd [employer] Apps Indication:Non-smoker Start:30-Nov-2020 Instruction Type:Patient Education Patient [...] tion Online using Patient Portal and 3rd [employer] Apps Indication:Type II diabetes mellitus, well controlled Start:20-May-2021 Instruction Type:Patient Education Patient Instructions Indication:Type II diabetes mellitus, well controlled Start:08-Feb-2021 Instruction Type:Provider Instructions for Treatment How to Access Health Informa tion Online using Patient Portal and 3rd [employer] Apps Indication:Type II diabetes mellitus, well controlled Start:08-Feb-2021 Instruction Type:Patient Education How to Access Health Informa tion Online using Patient Portal and 3rd [employer] Apps Indication:Non-smoker Start:30-Nov-2020 Instruction Type:Patient Education Patient [...] tion Online using Patient Portal and 3rd [employer] Apps Indication:Type II diabetes mellitus, well controlled Start:20-May-2021 Instruction Type:Patient Education Patient Instructions Indication:Type II diabetes mellitus, well controlled Start:08-Feb-2021 Instruction Type:Provider Instructions for Treatment How to Access Health Informa tion Online using Patient Portal and 3rd [employer] Apps Indication:Type II diabetes mellitus, well controlled Start:08-Feb-2021 Instruction Type:Patient Education How to Access Health Informa tion Online using Patient Portal and 3rd [employer] Apps Indication:Non-smoker Start:30-Nov-2020 Instruction Type:Patient Education Patient [...] Informa tion Online using Patient Portal and [employer] Apps Indication:Type II diabetes mellitus, well controlled Start:20-May-2021 Instruction Type:Patient Education Patient Instructions Indication:Type II diabetes mellitus, well controlled Start:08-Feb-2021 Instruction Type:Provider Instructions for Treatment How to Access Health Informa tion Online using Patient Portal and [employer] Apps Indication:Type II diabetes mellitus, well controlled Start:08-Feb-2021 Instruction Type:Patient Education How to Access Health Informa tion Online using Patient Portal and 3rd [employer] Apps Indication:Non-smoker Start:30-Nov-2020 Instruction Type:Patient Education Patient [...] tion Online using Patient Portal and 3rd [employer] Apps Indication:Type II diabetes mellitus, well controlled Start:20-May-2021 Instruction Type:Patient Education Patient Instructions Indication:Type II diabetes mellitus, well controlled Start:08-Feb-2021 Instruction Type:Provider Instructions for Treatment How to Access Health Informa tion Online using Patient Portal and 3rd [employer] Apps Indication:Type II diabetes mellitus, well controlled Start:08-Feb-2021 Instruction Type:Patient Education How to Access Health Informa tion Online using Patient Portal and [employer]rd [employer] Apps Indication:Non-smoker Start:30-Nov-2020 Instruction Type:Patient Education Patient [...] tion Online using Patient Portal and [employer]rd [employer] Apps Indication:Type II diabetes mellitus, well controlled Start:20-May-2021 Instruction Type:Patient Education Patient Instructions Indication:Type II diabetes mellitus, well controlled Start:08-Feb-2021 Instruction Type:Provider Instructions for Treatment How to Access Health Informa tion Online using Patient Portal and [employer]rd [employer] Apps Indication:Type II diabetes mellitus, well controlled Start:08-Feb-2021 Instruction Type:Patient Education How to Access Health Informa tion Online using Patient Portal and [employer]rd [employer] Apps Indication:Non-smoker Start:30-Nov-2020 Instruction Type:Patient Education Patient [...] tion Online using Patient Portal and [employer]rd [employer] Apps Indication:Type II diabetes mellitus, well controlled Start:20-May-2021 Instruction Type:Patient Education Patient Instructions Indication:Type II diabetes mellitus, well controlled Start:08-Feb-2021 Instruction Type:Provider Instructions for Treatment How to Access Health Informa tion Online using Patient Portal and [employer]rd [employer] Apps Indication:Type II diabetes mellitus, well controlled Start:08-Feb-2021 Instruction Type:Patient Education How to Access Health Informa tion Online using Patient Portal and [employer]rd [employer] Apps Indication:Non-smoker Start:30-Nov-2020 Instruction Type:Patient Education Patient [...] tion Online using Patient Portal and [employer]rd [employer] Apps Indication:Type II diabetes mellitus, well controlled Start:20-May-2021 Instruction Type:Patient Education Patient Instructions Indication:Type II diabetes mellitus, well controlled Start:08-Feb-2021 Instruction Type:Provider Instructions for Treatment How to Access Health Informa tion Online using Patient Portal and [employer]rd [employer] Apps Indication:Type II diabetes mellitus, well controlled Start:08-Feb-2021 Instruction Type:Patient Education How to Access Health Informa tion Online using Patient Portal and [employer]rd [employer] Apps Indication:Non-smoker Start:30-Nov-2020 Instruction Type:Patient Education Patient [...] tion Online using Patient Portal and [employer]rd [employer] Apps Indication:Non-smoker Start:29-Jan-2022 Instruction Type:Patient Education Patient Instructions Indication:BMI 40.0-44.9, adult Start:23-Jan-2022 Instruction Type:Provider Instructions for Treatment How to Access Health Informa tion Online using Patient Portal and [employer]rd [employer] Apps Indication:BMI 40.0-44.9, adult Start:23-Jan-2022 Instruction Type:Patient Education Patient Instructions Indication:Type II diabetes mellitus, well controlled Start:20-May-2021 Instruction Type:Provider Instructions for Treatment How to Access Health Informa tion Online using Patient Portal and [employer]rd [employer] Apps Indication:Type II diabetes mellitus, well controlled Start:20-May-2021 Instruction Type:Patient Education Patient Instructions Indication:Type II diabetes mellitus, well controlled Start:08-Feb-2021 Instruction Type:Provider Instructions for Treatment How to Access Health Informa tion Online using Patient Portal and [employer]rd [employer] Apps Indication:Type II diabetes mellitus, well controlled Start:08-Feb-2021 Instruction Type:Patient Education How to Access Health Informa tion Online using Patient Portal and [employer]rd [employer] Apps Indication:Non-smoker Start:30-Nov-2020 Instruction Type:Patient Education Patient [...] tion Online using Patient Portal and [employer]rd [employer] Apps Indication:Non-smoker Start:29-Jan-2022 Instruction Type:Patient Education Patient Instructions Indication:BMI 40.0-44.9, adult Start:23-Jan-2022 Instruction Type:Provider Instructions for Treatment How to Access Health Informa tion Online using Patient Portal and [employer]rd [employer] Apps Indication:BMI 40.0-44.9, adult Start:23-Jan-2022 Instruction Type:Patient Education Patient Instructions Indication:Type II diabetes mellitus, well controlled Start:20-May-2021 Instruction Type:Provider Instructions for Treatment How to Access Health Informa tion Online using Patient Portal and [employer]rd [employer] Apps Indication:Type II diabetes mellitus, well controlled Start:20-May-2021 Instruction Type:Patient Education Patient Instructions Indication:Type II diabetes mellitus, well controlled Start:08-Feb-2021 Instruction Type:Provider Instructions for Treatment How to Access Health Informa tion Online using Patient Portal and [employer]rd [employer] Apps Indication:Type II diabetes mellitus, well controlled Start:08-Feb-2021 Instruction Type:Patient Education How to Access Health Informa tion Online using Patient Portal and [employer]rd [employer] Apps Indication:Non-smoker Start:30-Nov-2020 Instruction Type:Patient Education Patient [...] tion Online using Patient Portal and [employer]rd [employer] Apps Indication:Non-smoker Start:15-Oct-2022 Instruction Type:Patient Education Patient Instructions Indication:Non-smoker Start:29-Jan-2022 Instruction Type:Provider Instructions for Treatment How to Access Health Informa tion Online using Patient Portal and [employer]rd [employer] Apps Indication:Non-smoker Start:29-Jan-2022 Instruction Type:Patient Education Patient Instructions Indication:BMI 40.0-44.9, adult Start:23-Jan-2022 Instruction Type:Provider Instructions for Treatment How to Access Health Informa tion Online using Patient Portal and [employer]rd [employer] Apps Indication:BMI 40.0-44.9, adult Start:23-Jan-2022 Instruction Type:Patient Education Patient Instructions Indication:Type II diabetes mellitus, well controlled Start:20-May-2021 Instruction Type:Provider Instructions for Treatment How to Access Health Informa tion Online using Patient Portal and [employer]rd [employer] Apps Indication:Type II diabetes mellitus, well controlled Start:20-May-2021 Instruction Type:Patient Education Patient Instructions Indication:Type II diabetes mellitus, well controlled Start:08-Feb-2021 Instruction Type:Provider Instructions for Treatment How to Access Health Informa tion Online using Patient Portal and [employer]rd [employer] Apps Indication:Type II diabetes mellitus, well controlled Start:08-Feb-2021 Instruction Type:Patient Education How to Access Health Informa tion Online using Patient Portal and [employer]rd [employer] Apps Indication:Non-smoker Start:30-Nov-2020 Instruction Type:Patient Education Patient [...] tion Online using Patient Portal and [employer]rd [employer] Apps Indication:Non-smoker Start:15-Oct-2022 Instruction Type:Patient Education Patient Instructions Indication:Non-smoker Start:29-Jan-2022 Instruction Type:Provider Instructions for Treatment How to Access Health Informa tion Online using Patient Portal and [employer]rd [employer] Apps Indication:Non-smoker Start:29-Jan-2022 Instruction Type:Patient Education Patient Instructions Indication:BMI 40.0-44.9, adult Start:23-Jan-2022 Instruction Type:Provider Instructions for Treatment How to Access Health Informa tion Online using Patient Portal and [employer]rd [employer] Apps Indication:BMI 40.0-44.9, adult Start:23-Jan-2022 Instruction Type:Patient Education Patient Instructions Indication:Type II diabetes mellitus, well controlled Start:20-May-2021 Instruction Type:Provider Instructions for Treatment How to Access Health Informa tion Online using Patient Portal and [employer]rd [employer] Apps Indication:Type II diabetes mellitus, well controlled Start:20-May-2021 Instruction Type:Patient Education Patient Instructions Indication:Type II diabetes mellitus, well controlled Start:08-Feb-2021 Instruction Type:Provider Instructions for Treatment How to Access Health Informa tion Online using Patient Portal and [employer]rd [employer] Apps Indication:Type II diabetes mellitus, well controlled Start:08-Feb-2021 Instruction Type:Patient Education How to Access Health Informa tion Online using Patient Portal and [employer]rd [employer] Apps Indication:Non-smoker Start:30-Nov-2020 Instruction Type:Patient Education Patient [...] tion Online using Patient Portal and [employer]rd [employer] Apps Indication:Non-smoker Start:15-Oct-2022 Instruction Type:Patient Education Patient Instructions Indication:Non-smoker Start:29-Jan-2022 Instruction Type:Provider Instructions for Treatment How to Access Health Informa tion Online using Patient Portal and [employer]rd [employer] Apps Indication:Non-smoker Start:29-Jan-2022 Instruction Type:Patient Education Patient Instructions Indication:BMI 40.0-44.9, adult Start:23-Jan-2022 Instruction Type:Provider Instructions for Treatment How to Access Health Informa tion Online using Patient Portal and [employer]rd [employer] Apps Indication:BMI 40.0-44.9, adult Start:23-Jan-2022 Instruction Type:Patient Education Patient Instructions Indication:Type II diabetes mellitus, well controlled Start:20-May-2021 Instruction Type:Provider Instructions for Treatment How to Access Health Informa tion Online using Patient Portal and [employer]rd [employer] Apps Indication:Type II diabetes mellitus, well controlled Start:20-May-2021 Instruction Type:Patient Education Patient Instructions Indication:Type II diabetes mellitus, well controlled Start:08-Feb-2021 Instruction Type:Provider Instructions for Treatment How to Access Health Informa tion Online using Patient Portal and [employer]rd [employer] Apps Indication:Type II diabetes mellitus, well controlled Start:08-Feb-2021 Instruction Type:Patient Education How to Access Health Informa tion Online using Patient Portal and [employer]rd [employer] Apps Indication:Non-smoker Start:30-Nov-2020 Instruction Type:Patient Education Patient [...] for referral (narrative)No reason for referral information [facility]Ad[facility] Work Phone: Family History No Family History [...] Will No June 28 9:34am 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 No June 28, 2021 9:34am Summary Purpose Additional Source Comments Goals (unrecognized section and content) Goals may be documented in a n alternate sectionGoals may be documented in an alternate sectionGoals may be documented in an alternate section INFORMATION SOURCE (unrecogn ized section and content) DATE CREATED AUTHOR 01/29/2022 [facility] DATE CREATED AUTHOR AUTHOR'S ORGANIZ ATION 05/27/2022 [facility] DATE CREATED AUTHOR AUTHOR'S ORGANIZ ATION [facility] [facility] DATE CREATED AUTHOR AUTHOR'S ORGANIZ ATION 04/06/2024 [facility] DATE CREATED AUTHOR AUTHOR'S ORGANIZ ATION 10/09/2024 [facility] DATE CREATED AUTHOR AUTHOR'S ORGANIZ ATION 12/26/2024 [facility] DATE CREATED AUTHOR AUTHOR'S ORGANIZ ATION 12/27/2024 [facility] DATE CREATED AUTHOR AUTHOR'S ORGANIZ ATION 12/30/2024 [facility] Reason for Visit (unrecogniz ed section and content) Reason Comments Establish Care New patient, no government affairs fellow care in chart. Patient states she used to see Dr. Calin Callejas in [facility]. Last saw them 2 years ago. Patient [...] Care Teams (unrecognized sec tion and content) Dependency Case Manager Relationship Specialty Start Date End Date Odalys Raymond DO [address] [facility] [address] [place] [address] PCP - General Internal Medicine 08/11/23 Dependency Case Manager Relationship Specialty [place] [address] [place] [address] [address] [place] [address] PCP - General Internal Medicine 08/11/23 Dependency Case Manager Relationship Specialty Start [place] [address] [place] [address] [address] [place] [address] PCP - General Internal Medicine 08/11/23 Dependency Case Manager Relationship Specialty Start Date End Date Odalys Raymond DO [address] [facility] [address] [place] [address] PCP - General Internal Medicine 08/11/23 Dependency Case Manager Relationship Specialty Start Date End Date Odalys Raymond DO [address] [facility] [address] [place] [address] PCP - General Internal Medicine 08/11/23 Dependency Case Manager Relationship Specialty Start Date End Date Odalys Raymond DO [address] [facility] [address] [place] [address] PCP - General Internal Medicine 08/11/23 Team [...] BE BASED ON THE PRIMARY CLINICAL RECORDS. [facility] [employer] provides no warranty or guarantee of the accuracy or completeness of information in this document.
== END | disposition home or self-care (01) ==
LOC: LABSPEC 16:56
PROVIDERS: PCP Internal Medicine; Visit Provider Physician Assistant Surgical
DX: J02.9 Acute pharyngitis, unspecified (principal)
CPT/HCPCS: 87070